=== PATIENT | female | born 1990 | race American Indian/Alaskan Native ===

== ENCOUNTER 2020-03-09 07:21 | Inpatient (IN) | payer MEDICARE ==
[2020-03-09] MEDS ORDERED: ALBUTEROL 2.5 MG/3 ML NEBU IH ONE ×3 (07:37→23:50)
[2020-03-09] MEDS ORDERED: IPRATROPIUM 0.02% NEBU 2.5 ML IH ONE (07:37)
--- NOTE | 2020-03-09 07:58 | Emergency Department Report ---
ED Shortness of Breath HPI - General Chief Complaint: Dyspnea/Respdistress Stated Complaint: CARMELA Time Seen by Provider: 03/09/20 07:37 Source: patient, EMS Mode of arrival: Stretcher Limitations: No Limitations - History of Present Illness Initial Comments: Patient is 29 years old female, morbidly obese with history of hypertension, diabetes and asthma. Patient was recently admitted to the hospital at [facility] for COVID-19 pneumonia approximately 2 weeks ago. Patient spent 5 days in the hospital and discharged home. Patient stated that she was doing well until 2 days ago when she started having difficulty in breathing again. Patient brought to the emergency room by EMS. EMS stated that patient found to have an oxygen saturation of 88% on room air improved to 95% on nonrebreather. Patient denied fever however stated that she is having chills. Patient denied any nausea or vomiting. MD Complaint: shortness of breath, cough -: days(s) (2) Consistency: constant Known History Of: asthma Context: recent URI - Related Data Allergies Allergy/AdvReac Type Severity Reaction Status Date / Time lorazepam [From Ativan] AdvReac Unknown Verified 03/09/20 07:27 naloxone [From Narcan] AdvReac Unknown Verified 03/09/20 07:28 ED Review of Systems ROS: Stated complaint: CARMELA Other details as noted in HPI Comment: All other systems reviewed and negative Constitutional: chills, fever Respiratory: cough, shortness of breath, SOB with exertion, SOB at rest, w heezing Cardiovascular: palpitations. denies: chest pain Gastrointestinal: denies: abdominal pain, nausea, vomiting, diarrhea, constipation, hematemesis, melena, hematochezia Musculoskeletal: denies: back pain Neurological: denies: headache, weakness, numbness, paresthesias, confusion ED Past Medical Hx - Past Medical History Previous Medical History?: Yes Hx Hypertension: Yes Hx Diabetes: Yes Hx Asthma: Yes ED Physical Exam - General Limitations: No Limitations General appearance: alert, in distress - Head Head exam: Present: atraumatic, normocephalic, normal inspection - Eye Eye exam: Present: normal appearance, PERRL - ENT ENT exam: Present: normal exam - Neck Neck exam: Present: normal inspection, full ROM. Absent: tenderness, meningismus - Respiratory Respiratory exam: Present: respiratory distress, wheezes, rales, rhonchi, accessory muscle use, decreased breath sounds - Cardiovascular Cardiovascular Exam: Present: regular rate, normal rhythm, normal heart sounds - GI/Abdominal GI/Abdominal exam: Present: soft, normal bowel sounds. Absent: distended, tenderness, guarding, rebound, rigid, organomegaly, mass, bruit, pulsatile mass, hernia - Extremities Exam Extremities exam: Present: normal inspection, full ROM, normal capillary refill - Back Exam Back exam: Present: normal inspection - Neurological Exam Neurological exam: Present: alert, oriented X3, CN II-XII intact - Psychiatric Psychiatric exam: Present: normal mood, anxious - Skin Skin exam: Present: warm, intact, normal color ED Course Vital Signs 03/09/20 03/09/20 03/09/20 07:31 07:46 08:00 Temperature Pulse Rate 94 H 88 Respiratory 46 H 37 H Rate Blood Pressure 170/102 150/95 170/102 Blood Pressure [Right] O2 Sat by Pulse 96 96 98 Oximetry 03/09/20 03/09/20 03/09/20 08:16 08:43 09:17 Temperature 99 F Pulse Rate 88 79 Respiratory 24 27 H Rate Blood Pressure 142/80 Blood Pressure 154/96 [Right] O2 Sat by Pulse 100 100 Oximetry ED Medical Decision Making - Lab Data Result diagrams: 03/09/20 08:27 03/09/20 08:27 - EKG Data -: EKG Interpreted by [place] EKG shows normal: sinus rhythm Rate: tachycardia - EKG Data Interpretation: no acute changes - Radiology Data Radiology results: report reviewed - Medical Decision Making Patient is 29 years old female, morbidly obese with history of hypertension, diabetes and asthma. Patient was recently admitted to the hospital at [facility] for COVID-19 pneumonia approximately 2 weeks ago. Patient spent 5 days in the hospital and discharged home. Patient stated that she was doing well until 2 days ago when she started having difficulty in breathing again. Patient brought to the emergency room by EMS. EMS stated that patient found to have an oxygen saturation of 88% on room air improved to 95% on nonrebreather. Patient denied fever however stated that she is having chills. Patient denied any nausea or vomiting. Patient is started on high flow oxygen with oxygen saturation is 100%. Patient also received albuterol, Atrovent and Decadron. Labs reviewed and showed a white blood cells of 15.8 with left shift. Lactic acid is 3.7. Sepsis protocol initiated and patient started on normal saline and received Levaquin 750 mg IV since patient has recently hospitalized. I discussed the patient with Dr. Casillas, he advised to admit the patient to Dr. Graf. Critical Care Time: Yes Critical care time in (mins) excluding proc time.: 30 Critical care attestation.: If time is entered above; I have spent that time in minutes in the direct care of this critically ill patient, excluding procedure time. ED Disposition Clinical Impression: Acute respiratory failure due to COVID-19, Sepsis Disposition: DC-09 OP ADMIT IP TO THIS HOSP Is pt being admited?: Yes Condition: Stable Referrals: PRIMARY CARE, [Primary Care Provider] - 3-5 Days
[2020-03-09] MEDS ORDERED: dexAMETHasone 20 MG in SODIUM CHLORIDE 0.9% 50 ML IV ONE (08:00)
--- NOTE | 2020-03-09 08:55 | XRay Report ---
CHEST 1 VIEW INDICATION: Dyspnea. COMPARISON: None FINDINGS: Support devices: None. Heart: Mild to moderate cardiomegaly Lungs/Pleura: Moderate pulmonary venous congestion and right pleural effusion. There is compressive a telectasis at the right lung base. The lungs are generally clear otherwise. No pneumothorax. Additional findings: None. IMPRESSION: CHF. Signer Name: Jimmy Ortega Jr, MD Signed: 03/09/2020 8:51 AM Workstation Name: [id number]
[2020-03-09 09:01] LABS: Basophils % (Auto) 0.3 % (0.0-1.8); Eosinophils # (Auto) 0.1 K/mm3 (0.0-0.4); Eosinophils % (Auto) 0.4 % (0.0-4.3); Lymphocytes # (Auto) 3.3 K/mm3 (1.2-5.4); Lymphocytes % (Auto) 20.7 % (13.4-35.0); Mean Corpuscular HGB Conc 30 % (30-34); Mean Corpuscular Volume 79 fl (79-97); Monocytes # (Auto) 1.3 K/mm3 (0.0-0.8); Monocytes % (Auto) 8.2 % (0.0-7.3); Platelet Count 245 K/mm3 (140-440); Red Blood Count 5.43 M/mm3 (3.65-5.03); Red Cell Distribution Width 19.3 % (13.2-15.2)
[2020-03-09 09:02] LABS: Hematocrit 42.8 % (30.3-42.9); Hemoglobin 12.9 gm/dl (10.1-14.3)
[2020-03-09 09:10] LABS: INR 1.06 (0.87-1.13)
[2020-03-09 09:11] LABS: Partial Thromboplastin Time 25.4 Sec. (24.2-36.6)
[2020-03-09 09:17] LABS: BUN/Creatinine Ratio 29; Blood Urea Nitrogen 29 mg/dL (7-17); Calcium 8.7 mg/dL (8.4-10.2); Hemolysis Index 23
[2020-03-09] MEDS ORDERED: SODIUM CHLORIDE 0.9% 1000 ML 1,000 ML IV ONE (09:43)
--- NOTE | 2020-03-09 10:15 | History and Physical Report ---
History of Present Illness Date of examination: 03/09/20 Date of admission: 03/09/2020 Chief complaint: Worsening shortness of breath, acute hypoxic respiratory failure History of present illness: Morbidly obese 29 years old female patient, with significant past medical history of hypertension, diabetes and asthma. With history of Covid positive state was recently admitted to the hospital at [facility] for COVID-19 pneumonia approximately 2 weeks ago. Patient spent 5 days in the hospital and discharged home. Patient stated that she was doing well until 2 days ago when she started having shortness of breath and worsening effort tolerance. Patient evaluated in the emergency room by EMS. EMS stated that patient found to have an oxygen saturation of 88% on room air improved to 95% on nonrebreather. In the emergency room patient was hypoxic requiring BiPAP. Patient also has been screaming and shouting and is very needy. At the time of my evaluation patient was screaming when I communicated patient wants more food more ice chips and water. Patient denies chest pain or palpitation, Mild cough productive, denies hematemesis or melena Patient's Covid test was sent, Denies nausea vomiting or abdominal pain Denies headache or dizziness, Chest x-ray mild CHF Past History Past Medical History: diabetes, hypertension, hyperlipidemia, other (History of recent Covid infection) Past Surgical History: No surgical history Social history: full code. denies: smoking, alcohol abuse, prescription drug abuse Family history: hypertension Medications and Allergies Allergies Allergy/AdvReac Type Severity Reaction Status Date / Time lorazepam [From Ativan] AdvReac Unknown Verified 03/09/20 07:27 naloxone [From Narcan] AdvReac Unknown Verified 03/09/20 07:28 Active Meds: Active Medications Sodium Chloride (Nacl 0.9% 1000 Ml) 1,000 mls @ 999 mls/hr IV BOLUS ONE Stop: 03/09/20 10:43 Levofloxacin/Dextrose (Levaquin 750mg/150ml) 750 mg in 150 mls @ 100 mls/hr IV ONCE ONE; Protocol Stop: 03/09/20 11:13 Review of Systems Constitutional: fatigue, weakness, no weight loss, no weight gain, no anorexia Ears, nose, mouth and throat: no nasal congestion, no nasal discharge Cardiovascular: orthopnea, shortness of breath, no chest pain, no palpitations, no rapid/irregular heart beat Respiratory: cough, cough with sputum, shortness of breath Gastrointestinal: no abdominal pain, no nausea, no vomiting Genitourinary Female: no flank pain, no dysuria Musculoskeletal: no myalgias, no arthritis Integumentary: no rash, no lesions Neurological: no syncope, no tremors, no ataxia Psychiatric: no anxiety, no confusion Endocrine: no cold intolerance, no heat intolerance, no polyphagia, no excessive thirst Hematologic/Lymphatic: no easy bruising, no easy bleeding Allergic/Immunologic: no urticaria, no allergic rhinitis Exam - Constitutional Vitals: Temp Pulse Resp BP Pulse Ox 99 F 79 27 H 154/96 100 03/09/20 08:43 03/09/20 09:17 03/09/20 09:17 03/09/20 09:17 03/09/20 09:52 General appearance: Present: severe distress, obese, other (Morbidly obese patient is screaming and shouting asking for staff) - EENT Eyes: Present: PERRL, EOM intact - Neck Neck: Present: supple, normal ROM - Respiratory Respiratory effort: normal Respiratory: left: diminished, rales, rhonchi, bilateral: wheezing - Cardiovascular Rhythm: regular Heart Sounds: Present: S1 & S2 - Extremities Extremities: no ischemia Extremity abnormal: edema - Abdominal General gastrointestinal: Present: soft, non-distended, distended - Integumentary Integumentary: Present: clear, warm - Musculoskeletal Musculoskeletal: strength equal bilaterally, generalized weakness - Psychiatric Psychiatric: appropriate mood/affect, cooperative - Neurologic Neurologic: CNII-XII intact, moves all extremities HEART Score - HEART Score Troponin: Troponin T < 0.010 ng/mL (0.00-0.029) 03/09/20 08:27 Results - Labs CBC & Chem 7: 03/09/20 08:27 03/09/20 08:27 Labs: Abnormal lab results 03/09/20 03/09/20 03/09/20 Range/Units 08:27 08:27 08:27 WBC 15.8 H (4.5-11.0) K/mm3 RBC 5.43 H (3.65-5.03) M/mm3 MCH 24 L (28-32) pg RDW 19.3 H (13.2-15.2) % [place] % (Auto) 8.2 H (0.0-7.3) % [place] # (Auto) 1.3 H (0.0-0.8) K/mm3 Seg Neutrophils % 70.4 H (40.0-70.0) % Seg Neutrophils # 11.1 H (1.8-7.7) K/mm3 D-Dimer (0-234) ng/mlDDU Chloride 97.1 L (98-107) mmol/L BUN 29 H (7-17) mg/dL Glucose 178 H (65-100) mg/dL Lactic Acid 3.70 H* (0.7-2.0) mmol/L Lactate Dehydrogenase 369 H (91-180) units/L C-Reactive Protein 3.00 H (0.00-1.30) mg/dL 03/09/20 Range/Units 08:27 WBC (4.5-11.0) K/mm3 RBC (3.65-5.03) M/mm3 MCH (28-32) pg RDW (13.2-15.2) % [place] % (Auto) (0.0-7.3) % [place] # (Auto) (0.0-0.8) K/mm3 Seg Neutrophils % (40.0-70.0) % Seg Neutrophils # (1.8-7.7) K/mm3 D-Dimer 1042.81 H (0-234) ng/mlDDU Chloride (98-107) mmol/L BUN (7-17) mg/dL Glucose (65-100) mg/dL Lactic Acid (0.7-2.0) mmol/L Lactate Dehydrogenase (91-180) units/L C-Reactive Protein (0.00-1.30) mg/dL Assessment and Plan --Acute hypoxic respiratory failure; present on admission Patient has history of recent Covid infection with positive test EMS found her to be hypoxic with O2 sats of 88% Oxygen titrate O2 sats to more than 90% Nebulizers, IV steroids, supportive care --History of recent Covid positive state; Check inflammatory markers, repeat agurire PCR test Contact and droplet isolation Try to get records from the previous hospital --Lactic acidosis; --Leukocytosis; secondary to sepsis, follow cultures To the underlying cause -- Elevate dimers; probably Covid related Evaluate for DVT and PE --Type 2 diabetes mellitus; moderate control Accu-Chek sliding scale coverage ADA diet and insulin as needed Check A1c --History of hypertension; moderate control home --Morbid obesity; BMI 60.6 Possible obstructive sleep apnea CPAP BiPAP at night, supportive care Patient needs x-rays likely modification and weight reduction when medically stable Nutrition consult --DVT prophylaxis; Lovenox We will closely monitor patient and adjust management as needed Plan of care reviewed with the patient and her nurse May need bariatric surgical consultation outpatient For weight reduction program when medically stable
[2020-03-09] MEDS ORDERED: oxyCODONE /ACETAMINOPHEN 5-325MG TAB PO PRN (10:40)
[2020-03-09] MEDS ORDERED: ACETAMINOPHEN 325 MG TAB PO PRN (10:40)
[2020-03-09] MEDS ORDERED: FUROSEMIDE 40 MG/4 ML INJ IV SCH (10:48)
[2020-03-09] MEDS ORDERED: hydrALAZINE 20 MG/1 ML INJ IV PRN (10:49)
[2020-03-09] MEDS ORDERED: SODIUM CHLORIDE 0.9% 1000 ML 1,000 ML ONE (11:59)
[2020-03-09] MEDS: INSULIN LISPRO 100 UNIT/ML VIAL 3 mL SUB-Q SCH ×3 (12:08→23:16)
--- NOTE | 2020-03-09 13:24 | Vascular Lab Report ---
DUPLEX DOPPLER LOWER EXTREMITY VEINS, BILATERAL INDICATION: Elevated D-dimers, evaluate for DVT. TECHNIQUE: Duplex doppler imaging was performed through the veins of both lower extremities using venous rocio mitzi and other maneuvers. COMPARISON: No relevant prior imaging study available. FINDINGS: Right Common femoral vein: Negative. Right Superficial femoral vein: Negative. Right Popliteal vein: Negative. Right Calf veins: Negative. Left Common femoral vein: Negative. Left Superficial femoral vein: Negative. Left Popliteal vein: Negative. Left Calf veins: Negative. Additional findings: None.. IMPRESSION: 1. No sonographic evidence for DVT in either lower extremity. Signer Name: Rick Hollis MD Signed: 03/09/2020 1:20 PM Workstation Name: [id number]
[2020-03-09] MEDS ORDERED: HALOPERIDOL LACTATE 5 MG/1 ML INJ ONE (15:58)
[2020-03-09] MEDS: hydrALAZINE 25 MG TAB PO SCH ×2 (16:07→23:10)
[2020-03-09] MEDS: HALOPERIDOL LACTATE 5 MG/1 ML INJ IM PRN (16:07)
[2020-03-09] MEDS ORDERED: ZIPRASIDONE MESYLATE 20 MG VIAL IM ONE (17:49)
[2020-03-09] MEDS ORDERED: diphenhydrAMINE 50 MG/ML VIAL IV ONE (17:50)
[2020-03-09] MEDS ORDERED: diphenhydrAMINE 50 MG/ML VIAL ONE (17:50)
[2020-03-09] MEDS ORDERED: ZOLPIDEM 5 MG TAB PO PRN (22:00)
[2020-03-09] MEDS ORDERED: ENOXAPARIN 40 MG/0.4 ML INJ SUB-Q SCH (22:00)
[2020-03-09] MEDS ORDERED: ENOXAPARIN 40 MG/0.4 ML INJ SUB-Q ONE (22:48)
[2020-03-09] MEDS ORDERED: METOPROLOL TARTRATE 25 MG TAB ONE (22:48)
[2020-03-09] MEDS ORDERED: hydrALAZINE 25 MG TAB ONE (22:49)
[2020-03-09] MEDS ORDERED: INSULIN LISPRO 100 UNIT/ML SUB-Q ONE (23:00)
[2020-03-09] MEDS: METOPROLOL TARTRATE 25 MG TAB PO SCH (23:10)
[2020-03-09] MEDS ORDERED: INSULIN LISPRO 100 UNIT/ML VIAL 3 mL SUB-Q ONE (23:12)
[2020-03-09] MEDS ORDERED: ZOLPIDEM 5 MG TAB ONE (23:16)
[2020-03-09] MEDS ORDERED: IPRATROPIUM/ALBUTEROL SULFATE 3 ML AMPUL.NEB IH ONE ×2 (23:41→23:50)
[2020-03-10] MEDS: HALOPERIDOL LACTATE 5 MG/1 ML INJ IM PRN ×2 (02:18→12:56)
[2020-03-10] MEDS: hydrALAZINE 25 MG TAB PO SCH ×3 (06:58→22:36)
[2020-03-10] MEDS: PANTOPRAZOLE 40 MG TAB PO SCH (06:58)
[2020-03-10] MEDS: INSULIN LISPRO 100 UNIT/ML VIAL 3 mL SUB-Q SCH ×3 (08:32→17:54)
[2020-03-10] MEDS: METOPROLOL TARTRATE 25 MG TAB PO SCH (09:28)
[2020-03-10] MEDS ORDERED: dexAMETHasone 4 MG/ML VIAL IV SCH (10:00)
--- NOTE | 2020-03-10 10:49 | Progress Note ---
Assessment and Plan - Patient Problems (1) Acute respiratory failure due to COVID-19 Current Visit: Yes Status: Acute Plan to address problem: Supplemental oxygen, pulse oximetry, nebulizer therapy via MDI spacer, ambulate 3 times daily and as needed, pulmonary toilet, prone positioning while in bed, (2) Obesity hypoventilation syndrome Current Visit: Yes Status: Acute Plan to address problem: Pulse oximetry, nebulizer therapy, supplemental oxygen, outpatient pulmonary follow-up for sleep study, balanced diet, increase physical activity at discharge (3) Coronavirus infection Current Visit: Yes Status: Acute Plan to address problem: Coronavirus protocol: Infectious disease service consulted, contact precautions, isolation precaution, steroid therapy, prone listening while in bed. (4) Hypertension Current Visit: Yes Status: Acute Qualifiers: Hypertension type: essential hypertension Qualified Code(s): I10 - Essential (primary) hypertension Plan to address problem: Monitor blood pressure every shift, continue medical management (5) Diabetes Current Visit: Yes Status: Acute Plan to address problem: Consistent carbohydrate diet, sliding scale insulin therapy, Accu-Chek, hypoglycemia protocol (6) CHF (congestive heart failure) Current Visit: Yes Status: Acute Qualifiers: Heart failure type: systolic Heart failure chronicity: acute Qualified Code(s): I50.21 - Acute systolic (congestive) heart failure Plan to address problem: Strict I/O, monitor urine output every shift, daily weight, afterload reduction, blood pressure control, echocardiogram ordered and is pending at this time. BNP, (7) Pneumonia Current Visit: Yes Status: Acute Qualifiers: Laterality: bilateral Plan to address problem: Pneumonia protocol: Supplemental oxygen, IV antibiotic therapy, pulse oximetry, blood culture. (8) DVT prophylaxis Current Visit: Yes Status: Acute Plan to address problem: SCD to bilateral lower extremities while in bed, prophylactic anticoagulation. History Interval history: 29 YO Female HD #2 with acute hypoxemic respiratory failure secondary to c oronavirus infection, obesity hypoventilation syndrome. Patient resting comfortably in bed with high flow supplemental oxygen in place. No reported nursing events. Patient denies pain. Patient knowledges continued shortness of breath. Hospitalist Physical - Constitutional Vitals: Temp Pulse Resp BP Pulse Ox 98.0 F 95 H 20 142/90 100 03/10/20 05:48 03/10/20 09:28 03/10/20 05:48 03/10/20 09:28 03/10/20 05:48 General appearance: Present: severe distress, obese, other (Morbidly obese patient is screaming and shouting asking for staff) - EENT Eyes: Present: PERRL, EOM intact - Neck Neck: Present: supple - Respiratory Respiratory effort: labored Respiratory: bilateral: diminished, rhonchi - Cardiovascular Rhythm: regular Heart Sounds: Present: S1 & S2 - Extremities Extremities: no ischemia Extremity abnormal: edema Peripheral Pulses: within normal limits - Abdominal General gastrointestinal: soft, non-tender, non-distended - Integumentary Integumentary: Present: clear, dry - Psychiatric Psychiatric: appropriate mood/affect, cooperative - Neurologic Neurologic: CNII-XII intact HEART Score - HEART Score Troponin: Troponin T < 0.010 ng/mL (0.00-0.029) 03/09/20 08:27 Results - Labs CBC & Chem 7: 03/09/20 08:27 03/09/20 08:27 Labs: Laboratory Last Values WBC 15.8 K/mm3 (4.5-11.0) H 03/09/20 08:27 RBC 5.43 M/mm3 (3.65-5.03) H 03/09/20 08:27 Hgb 12.9 gm/dl (10.1-14.3) 03/09/20 08:27 Hct 42.8 % (30.3-42.9) 03/09/20 08:27 MCV 79 fl (79-97) 03/09/20 08:27 MCH 24 pg (28-32) L 03/09/20 08: MCHC 30 % (30-34) 03/09/20 08:27 RDW 19.3 % (13.2-15.2) H 03/09/20 08:27 Plt Count 245 K/mm3 (140-440) 03/09/20 08:27 Lymph % (Auto) 20.7 % (13.4-35.0) 03/09/20 08:27 [place] % (Auto) 8.2 % (0.0-7.3) H 03/09/20 08:27 Eos % (Auto) 0.4 % (0.0-4.3) 03/09/20 08:27 Baso % (Auto) 0.3 % (0.0-1.8) 03/09/20 08:27 Lymph # (Auto) 3.3 K/mm3 (1.2-5.4) 03/09/20 08:27 [place] # (Auto) 1.3 K/mm3 (0.0-0.8) H 03/09/20 08:27 Eos # (Auto) 0.1 K/mm3 (0.0-0.4) 03/09/20 08: Baso # (Auto) 0.0 K/mm3 (0.0-0.1) 03/09/20 08:27 Seg Neutrophils % 70.4 % (40.0-70.0) H 03/09/20 08: Seg Neutrophils # 11.1 K/mm3 (1.8-7.7) H 03/09/20 08:27 PT 13.7 Sec. (12.2-14.9) 03/09/20 08: INR 1.06 (0.87-1.13) 03/09/20 08: APTT 25.4 Sec. (24.2-36.6) 03/09/20 08:27 D-Dimer 1042.81 ng/mlDDU (0-234) H 03/09/20 08:27 Sodium 139 mmol/L (137-145) 03/09/20 08:27 Potassium 4.9 mmol/L (3.6-5.0) 03/09/20 08:27 Chloride 97.1 mmol/L (98-107) L 03/09/20 08: Carbon Dioxide 25 mmol/L (22-30) 03/09/20 08:27 Anion Gap 22 mmol/L 03/09/20 08:27 BUN 29 mg/dL (7-17) H 03/09/20 08:27 Creatinine 1.0 mg/dL (0.6-1.2) 03/09/20 08:27 Estimated GFR > 60 ml/min 03/09/20 08:27 BUN/Creatinine Ratio 29 % 03/09/20 08:27 Glucose 178 mg/dL (65-100) H 03/09/20 08:27 POC Glucose 371 mg/dL (70-105) H 03/10/20 08:19 Hemoglobin A1c 8.0 % (4-6) H 03/09/20 08:27 Lactic Acid 6.80 mmol/L (0.7-2.0) H* 03/10/20 05:23 Calcium 8.7 mg/dL (8.4-10.2) 03/09/20 08:27 Ferritin 108.9 ng/mL (10.0-200.0) 03/09/20 08:27 Lactate Dehydrogenase 369 units/L (91-180) H 03/09/20 08:27 Troponin T < 0.010 ng/mL (0.00-0.029) 03/09/20 08:27 C-Reactive Protein 3.00 mg/dL (0.00-1.30) H 03/09/20 08:27 NT-Pro-B Natriuret Pep 2914 pg/mL (0-450) H 03/09/20 08:27 Procalcitonin 0.28 ng/mL (<0.15) 03/09/20 08:27 Coronavirus (PCR) Positive (Negative) A 03/09/20 08:43 Microbiology: Microbiology 03/09/20 10:47 Urine,Clean Catch Urine Culture - Preliminary 03/09/20 08:27 Peripheral/Venous Blood Culture - Preliminary NO GROWTH AFTER 24 HOURS 03/09/20 08:27 Peripheral/Venous Blood Culture - Preliminary NO GROWTH AFTER 24 HOURS V[place]la/IV: Voiding Method Incontinent IV Catheter Type [Right INT / Saline Lock Antecubital] IV Catheter Type [Right Hand] INT / Saline Lock IV Catheter Type [Left Hand] INT / Saline Lock Active Medications - Current Medications Current Medications: Generic Name Dose Route Start Last Admin Trade Name Freq PRN Reason Stop Dose Admin Acetaminophen 650 mg 03/09/20 10:40 Tylenol PO Q4H PRN Pain, Mild (1-3) Bisacodyl 10 mg 03/09/20 10:40 Dulcolax PO QDAY PRN Constipation Dexamethasone 6 mg 03/10/20 10:00 03/10/20 09:28 Decadron IV 6 mg DAILY KIM Administration Enoxaparin Sodium 40 mg 03/09/20 22:00 03/09/20 23:08 Enoxaparin SUB-Q 40 mg QDAY@2200 KIM Administration Protocol Haloperidol Lactate 2 mg 03/09/20 15:39 03/10/20 02:18 Haldol IM 2 mg Q6H PRN Administration Agitation Hydralazine HCl 25 mg 03/09/20 14:00 03/10/20 06:58 Apresoline PO 25 mg Q8HR KIM Administration Hydralazine HCl 10 mg 03/09/20 10:49 Apresoline IV Q4HR PRN Hypertension Insulin Human Lispro 0 unit 03/09/20 11:30 03/10/20 08:32 Humalog SUB-Q 8 unit ACHS KIM Administration Protocol Metoprolol Tartrate 12.5 mg 03/09/20 22:00 03/10/20 09:28 Metoprolol PO 12.5 mg BID KIM Administration Oxycodone/Acetaminophen 1 tab 03/09/20 10:40 Percocet 5/325 PO Q6H PRN Pain, Moderate (4-6) Pantoprazole Sodium 40 mg 03/10/20 07:30 03/10/20 06:58 Protonix PO 40 mg QDAC KIM Administration Zolpidem Tartrate 5 mg 03/09/20 22:00 03/09/20 23:40 Ambien PO 5 mg QHS PRN Administration Sleep
--- NOTE | 2020-03-10 11:41 | Progress Note ---
Assessment and Plan Cultures: Blood culture 03/09/2020 pending Urine culture 03/09/2020 pending A/P: 29-year-old female past medical history morbid obesity, obesity hypoventilation syndrome, diabetes admitted with shortness of breath #COVID-19 pneumonia: Diagnosed over 2 weeks ago, as such not a candidate for remdesivir. Given that her ferritin is normal, less likely to be in cytokine storm. Procalcitonin slightly elevated at 0.3 #Acute hypoxemic respiratory failure: Likely secondary to COVID-19 infection versus CHF versus bacterial pneumonia. Currently on 15 L nonrebreather #Diabetes: tight glycemic control for best outcomes. #Morbid obesity: Associated with worse outcomes, recommend diet modifications Recs: -Order TTE for evaluation of CHF -Started cefepime 2 g every 8 hours given elevated white count, lactic acid and procalcitonin -Follow white count. Dr. Underwood taking over tomorrow. Thank you for the consult, we will continue to follow. Freida Koch MD [facility] O: [phone] F: [phone] Subjective Date of service: 03/10/20 Interval history: 29-year-old female past medical history of morbid obesity, obesity hypoven tilation, diabetes, asthma. She was admitted to the hospital at [facility] approximately 2 weeks ago for COVID-19 at that time. During that admission she spent 5 days in hospital and was discharged home. She was feeling fine at home, until 2 days prior to admission when she began having worsening shortness of breath. She was found to be hypoxic by EMS which improved with a nonrebreather. She otherwise denies any symptoms. Afebrile with a white count of 16. She is currently on dexamethasone. Covid testing positive. Blood and urine cultures currently pending. She is on 15 L nonrebreather. Imaging personally viewed: Bilateral Doppler ultrasound: No DVT Chest x-ray most consistent with CHF. Review of Systems: Bold if positive, otherwise negative General: fevers, chills, rigors HEENT: visual disturbance, diplopia, eye pain Respiratory: cough, sputum, hemoptysis, shortness of breath Cardiovascular: chest pain, syncope Gastrointestinal: nausea, vomiting, diarrhea, abdominal pain Genitourinary: dysuria, hematuria, flank pain Musculoskeletal: neck pain, back pain, joint pain, edema Neurologic: headaches, seizures Hematologic: easy bruising or bleeding Endocrine: night sweats, acute weight loss Skin: rash, jaundice, redness Psychiatric: suicidal, homicidal ideation Objective - Exam Narrative Exam: Physical exam deferred due to PPE conservation strategy. Please refer to primary team's note. - Constitutional Vitals: Vital Signs Temp Pulse Resp BP Pulse Ox 98.0 F 95 H 20 142/90 100 03/10/20 05:48 03/10/20 09:28 03/10/20 05:48 03/10/20 09:28 03/10/20 05:48 Temperature -Last 24 Hours Temperature 98.0 F Temperature 98.8 F Temperature 99.8 F - Labs CBC & Chem 7: 03/09/20 08:27 03/09/20 08:27 Labs: Abnormal lab results 03/09/20 03/09/20 03/10/20 Range/Units 08:43 23:04 05:23 POC Glucose 361 H (70-105) mg/dL Lactic Acid 6.80 H* (0.7-2.0) mmol/L Coronavirus (PCR) Positive A (Negative) 03/10/20 03/10/20 Range/Units 08:19 10:49 POC Glucose 371 H 423 H (70-105) mg/dL Lactic Acid (0.7-2.0) mmol/L Coronavirus (PCR) (Negative)
[2020-03-10] MEDS: CEFEPIME/NS 2 GM/100 ML 2 GM/100 ML BAG IV SCH ×2 (14:21→23:47)
[2020-03-10] MEDS ORDERED: LORazepam 1 MG TAB PO ONE (16:05)
[2020-03-10 16:52] LABS: HCG Qualitative,Urine Negative (Negative)
[2020-03-10] MEDS ORDERED: LORazepam 2 MG/ML VIAL IV ONE (18:27)
[2020-03-10] MEDS ORDERED: ZIPRASIDONE MESYLATE 20 MG VIAL IM ONE (20:11)
[2020-03-10] MEDS ORDERED: NON-FORMULARY EACH (Risperidone [Risperdal] 0.5 MG) PO SCH (22:00)
[2020-03-10] MEDS: hydrOXYzine HCL 10 MG TAB PO SCH (22:34)
[2020-03-10] MEDS: carvediloL 6.25 MG TAB PO SCH (22:34)
[2020-03-10] MEDS: HEPARIN 5,000 UNIT/1 ML VIAL SUB-Q SCH (22:34)
[2020-03-10] MEDS: risperiDONE 0.25 MG TAB PO SCH (22:35)
[2020-03-10] MEDS: DIVALPROEX ER 500 MG TAB PO SCH (22:35)
[2020-03-10] MEDS: CITALOPRAM 20 MG TAB PO SCH (22:36)
[2020-03-11] MEDS: INSULIN LISPRO 100 UNIT/ML VIAL 3 mL SUB-Q SCH ×5 (00:36→17:01)
[2020-03-11] MEDS ORDERED: WATER FOR INJ Sterile (PF) 10 ML ONE (01:55)
[2020-03-11] MEDS: hydrALAZINE 25 MG TAB PO SCH ×2 (06:45→13:50)
[2020-03-11] MEDS: CEFEPIME/NS 2 GM/100 ML 2 GM/100 ML BAG IV SCH ×2 (09:49→13:50)
[2020-03-11] MEDS ORDERED: NON-FORMULARY EACH (Losartan [Cozaar] 100 MG) PO SCH (10:00)
[2020-03-11] MEDS ORDERED: NON-FORMULARY EACH (Nifedipine [Nifedipine Er] 60 MG) PO SCH (10:00)
[2020-03-11] MEDS: risperiDONE 0.25 MG TAB PO SCH (11:08)
[2020-03-11] MEDS: HEPARIN 5,000 UNIT/1 ML VIAL SUB-Q SCH (11:09)
[2020-03-11] MEDS: carvediloL 6.25 MG TAB PO SCH (11:09)
[2020-03-11] MEDS: PANTOPRAZOLE 40 MG TAB PO SCH (11:09)
[2020-03-11] MEDS: DEXAMETHASONE 4 MG TAB PO SCH (11:09)
[2020-03-11] MEDS: LOSARTAN 50 MG TAB PO SCH (11:09)
[2020-03-11] MEDS: NIFEdipine XL 60 MG TAB PO SCH (11:11)
[2020-03-11] MEDS: HALOPERIDOL LACTATE 5 MG/1 ML INJ IM PRN (14:08)
[2020-03-11] MEDS ORDERED: diphenhydrAMINE 50 MG CAP PO PRN (16:32)
[2020-03-11] MEDS: ZIPRASIDONE MESYLATE 20 MG VIAL IM PRN (18:40)
--- NOTE | 2020-03-11 20:59 | Progress Note ---
Assessment and Plan - Patient Problems (1) Acute respiratory failure due to COVID-19 Current Visit: Yes Status: Acute Plan to address problem: Supplemental oxygen, pulse oximetry, nebulizer therapy via MDI spacer, ambulate 3 times daily and as needed, pulmonary toilet, prone positioning while in bed, (2) Obesity hypoventilation syndrome Current Visit: Yes Status: Acute Plan to address problem: Pulse oximetry, nebulizer therapy, supplemental oxygen, outpatient pulmonary follow-up for sleep study, balanced diet, increase physical activity at discharge (3) Coronavirus infection Current Visit: Yes Status: Acute Plan to address problem: Coronavirus protocol: Infectious disease service consulted, contact precautions, isolation precaution, steroid therapy, prone listening while in bed. (4) Hypertension Current Visit: Yes Status: Acute Qualifiers: Hypertension type: essential hypertension Qualified Code(s): I10 - Essential (primary) hypertension Plan to address problem: Monitor blood pressure every shift, continue medical management (5) Diabetes Current Visit: Yes Status: Acute Plan to address problem: Consistent carbohydrate diet, sliding scale insulin therapy, Accu-Chek, hypoglycemia protocol (6) CHF (congestive heart failure) Current Visit: Yes Status: Acute Qualifiers: Heart failure type: systolic Heart failure chronicity: acute Qualified Code(s): I50.21 - Acute systolic (congestive) heart failure Plan to address problem: Strict I/O, monitor urine output every shift, daily weight, afterload reduction, blood pressure control, echocardiogram ordered and is pending at this time. BNP, (7) Pneumonia Current Visit: Yes Status: Acute Qualifiers: Laterality: bilateral Plan to address problem: Pneumonia protocol: Supplemental oxygen, IV antibiotic therapy, pulse oximetry, blood culture. (8) DVT prophylaxis Current Visit: Yes Status: Acute Plan to address problem: SCD to bilateral lower extremities while in bed, prophylactic anticoagulation. History Interval history: 29 YO Female HD #3 with acute hypoxemic respiratory failure secondary to c oronavirus infection, obesity hypoventilation syndrome. Patient resting comfortably in bed with high flow supplemental oxygen in place. Patient denies pain. Patient knowledges continued shortness of breath. Nursing staff report agitation. Hospitalist Physical - Constitutional Vitals: Temp Pulse Resp BP Pulse Ox 97.7 F 91 H 17 132/81 99 03/11/20 15:27 03/11/20 15:27 03/11/20 15:27 03/11/20 15:27 03/11/20 15:27 General appearance: Present: severe distress, obese, other (Morbidly obese patient is screaming and shouting asking for staff) - EENT Eyes: Present: PERRL, EOM intact ENT: hearing intact - Neck Neck: Present: supple - Respiratory Respiratory effort: labored Respiratory: bilateral: diminished, rhonchi - Cardiovascular Rhythm: regular Heart Sounds: Present: S1 & S2 - Extremities Extremities: no ischemia Peripheral Pulses: within normal limits - Abdominal General gastrointestinal: soft, non-tender, non-distended - Integumentary Integumentary: Present: clear, erythema - Psychiatric Psychiatric: agitated - Neurologic Neurologic: CNII-XII intact HEART Score - HEART Score Troponin: Troponin T < 0.010 ng/mL (0.00-0.029) 03/09/20 08:27 Results - Labs CBC & Chem 7: 03/09/20 08:27 03/09/20 08:27 Labs: Laboratory Last Values WBC 15.8 K/mm3 (4.5-11.0) H 03/09/20 08:27 RBC 5.43 M/mm3 (3.65-5.03) H 03/09/20 08:27 Hgb 12.9 gm/dl (10.1-14.3) 03/09/20 08: Hct 42.8 % (30.3-42.9) 03/09/20 08:27 MCV 79 fl (79-97) 03/09/20 08: MCH 24 pg (28-32) L 03/09/20 08: MCHC 30 % (30-34) 03/09/20 08: RDW 19.3 % (13.2-15.2) H 03/09/20 08:27 Plt Count 245 K/mm3 (140-440) 03/09/20 08: Lymph % (Auto) 20.7 % (13.4-35.0) 03/09/20 08: [place] % (Auto) 8.2 % (0.0-7.3) H 03/09/20 08:27 Eos % (Auto) 0.4 % (0.0-4.3) 03/09/20 08: Baso % (Auto) 0.3 % (0.0-1.8) 03/09/20 08:27 Lymph # (Auto) 3.3 K/mm3 (1.2-5.4) 03/09/20 08:27 [place] # (Auto) 1.3 K/mm3 (0.0-0.8) H 03/09/20 08:27 Eos # (Auto) 0.1 K/mm3 (0.0-0.4) 03/09/20 08:27 Baso # (Auto) 0.0 K/mm3 (0.0-0.1) 03/09/20 08:27 Seg Neutrophils % 70.4 % (40.0-70.0) H 03/09/20 08:27 Seg Neutrophils # 11.1 K/mm3 (1.8-7.7) H 03/09/20 08:27 PT 13.7 Sec. (12.2-14.9) 03/09/20 08:27 INR 1.06 (0.87-1.13) 03/09/20 08: APTT 25.4 Sec. (24.2-36.6) 03/09/20 08:27 D-Dimer 1042.81 ng/mlDDU (0-234) H 03/09/20 08:27 Sodium 139 mmol/L (137-145) 03/09/20 08:27 Potassium 4.9 mmol/L (3.6-5.0) 03/09/20 08:27 Chloride 97.1 mmol/L (98-107) L 03/09/20 08: Carbon Dioxide 25 mmol/L (22-30) 03/09/20 08:27 Anion Gap 22 mmol/L 03/09/20 08:27 BUN 29 mg/dL (7-17) H 03/09/20 08:27 Creatinine 1.0 mg/dL (0.6-1.2) 03/09/20 08:27 Estimated GFR > 60 ml/min 03/09/20 08:27 BUN/Creatinine Ratio 29 % 03/09/20 08:27 Glucose 178 mg/dL (65-100) H 03/09/20 08:27 POC Glucose 386 mg/dL (70-105) H 03/11/20 15:24 Hemoglobin A1c 8.0 % (4-6) H 03/09/20 08:27 Lactic Acid 6.80 mmol/L (0.7-2.0) H* 03/10/20 05:23 Calcium 8.7 mg/dL (8.4-10.2) 03/09/20 08:27 Ferritin 108.9 ng/mL (10.0-200.0) 03/09/20 08:27 Lactate Dehydrogenase 369 units/L (91-180) H 03/09/20 08:27 Troponin T < 0.010 ng/mL (0.00-0.029) 03/09/20 08:27 C-Reactive Protein 3.00 mg/dL (0.00-1.30) H 03/09/20 08:27 NT-Pro-B Natriuret Pep 2914 pg/mL (0-450) H 03/09/20 08:27 Procalcitonin 0.28 ng/mL (<0.15) 03/09/20 08:27 Urine HCG, Qual Negative (Negative) 03/10/20 Unknown Coronavirus (PCR) Positive (Negative) A 03/09/20 08:43 Microbiology: Microbiology 03/09/20 08:27 Peripheral/Venous Blood Culture - Preliminary NO GROWTH AFTER 48 HOURS 03/09/20 08:27 Peripheral/Venous Blood Culture - Preliminary NO GROWTH AFTER 48 HOURS - Diagnostic Impressions Diagnostic Impressions: Echocardiogram 03/10/20 11:41 Transthoracic Echocardiogram Indication: New CHF BP: 129/80 HR: 81 Conclusions *The right heart chambers are both moderate-severely dilated. There is at least moderate tricuspid regurgitation. There is moderately-severe pulmonary hypertension with PA systolic pressures of 64mmHg. Findings suggest chronic lung disease, but acute PE should be considered. *Left ventricular chamber size and systolic function are normal. *The estimated ejection fraction is 55-60%. *There is trace of mitral regurgitation. Findings Left Ventricle: The left ventricular chamber size is normal. There is no left ventricular hypertrophy. Global left ventricular systolic function is normal. The estimated ejection fraction is 55-60%. Left Atrium: The left atrial chamber size is normal. Right Ventricle: The right ventricle is moderately dilated. The right ventricular global systolic function is moderately reduced. Right Atrium: The right atrium is moderate to severely dilated. Aortic Valve: The aortic valve is trileaflet. The aortic valve leaflets are mildly thickened. There is no evidence of aortic regurgitation. There is no evidence of aortic stenosis. Mitral Valve: The mitral valve leaflets are mildly thickened. There is trace of mitral regurgitation. There is no evidence of mitral stenosis. Tricuspid Valve: The tricuspid valve leaflets are normal. There is moderate tricuspid regurgitation. The right ventricular systolic pressure is calculated at 64 mmHg. There is evidence of severe pulmonary hypertension. Pulmonic Valve: There is mild pulmonic regurgitation. Aorta: There is no dilatation of the ascending aorta. There is no dilatation of the aortic root. Venous: The inferior vena cava appears normal in size. Measurements Chambers 2D Name Value Normal Range IVSd (2D) 0.8 cm (0.6 - 1.1) LVPWd (2D) 0.87 cm (0.6 - 1.1) LVIDd (2D) 4.69 cm (3.7 - 5.6) LVIDs (2D) 3.64 cm (2 - 3.8) LV FS (2D) 22.38 % - EF Teichholz (2D) 45.1 % - Ao root diameter (2D) 2.17 cm (2 - 3.7) Volumes/Mass Name Value Normal Range LA ESV SP 4CH (A/L) 42.29 ml - LA ESV SP 2CH (A/L) 63.31 ml - LA ESV BP (A/L) 55.21 ml - LA ESV BP (A/L) index 23.49 ml/m2 - LA ESV SP 4CH (MOD) 39.24 ml - LA ESV SP 2CH (MOD) 62.57 ml - LA ESV BP (MOD) 52.02 ml - LA ESV BP (MOD) index 22.14 ml/m2 - Diastolic/Systolic Function Name Value Normal Range MV E-wave Vmax 1.13 m/sec - MV deceleration time 207.11 msec - MV A-wave Vmax 0.86 m/sec - MV E:A ratio 1.31 ratio - Aortic Valve Name Value Normal Range AV Vmax 1.91 m/sec - AV VTI 32.53 cm - AV peak gradient 14.61 mmHg - AV mean gradient 7.83 mmHg - LVOT diameter 1.78 cm - LVOT Vmax 1.67 m/sec - LVOT VTI 28.3 cm - LVOT peak gradient 11.17 mmHg - LVOT mean gradient 5.51 mmHg - SV LVOT 70.01 ml - JANUSZ (continuity Vmax) 2.16 cm2 - JANUSZ (continuity VTI) 2.15 cm2 - Tricuspid Valve Name Value Normal Range TR Vmax 3.59 m/sec - TR peak gradient 51.44 mmHg - RAP 8 mmHg - RVSP 64 mmHg - IVC diameter 2.38 cm (1.2 - 2.3) Varela/IV: Voiding Method Bedside Commode IV Catheter Type [Right INT / Saline Lock Forearm] IV Catheter Type [Right INT / Saline Lock Antecubital] IV Catheter Type [Right Hand] INT / Saline Lock IV Catheter Type [Left Hand] INT / Saline Lock Active Medications - Current Medications Current Medications: Generic Name Dose Route Start Last Admin Trade Name Freq PRN Reason Stop Dose Admin Acetaminophen 650 mg 03/09/20 10:40 Tylenol PO Q4H PRN Pain, Mild (1-3) Bisacodyl 10 mg 03/09/20 10:40 Dulcolax PO QDAY PRN Constipation Carvedilol 6.25 mg 03/10/20 22:00 03/11/20 11:09 Coreg PO 6.25 mg BID KIM Administration Citalopram Hydrobromide 20 mg 03/10/20 22:00 03/10/20 22:36 Celexa PO 20 mg QHS KIM Administration Dexamethasone 6 mg 03/11/20 10:00 03/11/20 11:09 Decadron PO 03/18/20 10:01 6 mg DAILY KIM Administration Diphenhydramine HCl 50 mg 03/11/20 16:32 Benadryl PO Q6H PRN Itching Divalproex Sodium 1,000 mg 03/10/20 22:00 03/10/20 22:35 Depakote Er PO 1,000 mg QHS KIM Administration Haloperidol Lactate 2 mg 03/09/20 15:39 03/11/20 14:08 Haldol IM 2 mg Q6H PRN Administration Agitation Heparin Sodium (Porcine) 5,000 unit 03/10/20 22:00 03/11/20 11:09 Heparin SUB-Q 5,000 unit Q12HR KIM Administration Hydralazine HCl 25 mg 03/09/20 14:00 03/11/20 13:50 Apresoline PO 25 mg Q8HR KIM Administration Hydralazine HCl 10 mg 03/09/20 10:49 Apresoline IV Q4HR PRN Hypertension Hydroxyzine HCl 10 mg 03/10/20 22:00 03/10/20 22:34 Atarax PO 10 mg QHS KIM Administration Cefepime HCl 2 gm in 100 mls @ 200 mls/hr 03/10/20 14:00 03/11/20 13:50 Cefepime/Ns 2 Gm/100 Ml IV Not Given Q8H KIM Protocol Insulin Human Lispro 0 unit 03/09/20 11:30 03/11/20 17:01 Humalog SUB-Q 4 unit ACHS KIM Administration Protocol Losartan Potassium 100 mg 03/11/20 10:00 03/11/20 11:09 Cozaar PO 100 mg QDAY KIM Administration Nifedipine 60 mg 03/11/20 10:00 03/11/20 11:11 Procardia Xl PO 60 mg QDAY KIM Administration Oxycodone/Acetaminophen 1 tab 03/09/20 10:40 Percocet 5/325 PO Q6H PRN Pain, Moderate (4-6) Pantoprazole Sodium 40 mg 03/10/20 07:30 03/11/20 11:09 Protonix PO 40 mg QDAC KIM Administration Risperidone 0.5 mg 03/10/20 22:00 03/11/20 11:08 Risperdal PO 0.5 mg BID KIM Administration Ziprasidone 20 mg 03/11/20 16:28 03/11/20 18:40 Geodon IM 20 mg Q4H PRN Administration Agitation Zolpidem Tartrate 5 mg 03/09/20 22:00 03/09/20 23:40 Ambien PO 5 mg QHS PRN Administration Sleep
[2020-03-12] MEDS: INSULIN LISPRO 100 UNIT/ML VIAL 3 mL SUB-Q SCH ×5 (00:08→22:51)
[2020-03-12] MEDS: hydrOXYzine HCL 10 MG TAB PO SCH ×2 (00:09→22:52)
[2020-03-12] MEDS: CITALOPRAM 20 MG TAB PO SCH ×2 (00:09→22:52)
[2020-03-12] MEDS: INSULIN GLARGINE 100 UNITS/ML SUB-Q SCH ×2 (00:09→22:54)
[2020-03-12] MEDS: carvediloL 6.25 MG TAB PO SCH ×3 (00:09→22:52)
[2020-03-12] MEDS: risperiDONE 0.25 MG TAB PO SCH ×3 (00:10→22:54)
[2020-03-12] MEDS: hydrALAZINE 25 MG TAB PO SCH ×4 (00:10→22:54)
[2020-03-12] MEDS: DIVALPROEX ER 500 MG TAB PO SCH ×2 (00:11→22:52)
[2020-03-12] MEDS: HEPARIN 5,000 UNIT/1 ML VIAL SUB-Q SCH ×3 (00:11→23:15)
[2020-03-12] MEDS: CEFEPIME/NS 2 GM/100 ML 2 GM/100 ML BAG IV SCH ×4 (00:19→23:18)
[2020-03-12] MEDS: HALOPERIDOL LACTATE 5 MG/1 ML INJ IM PRN ×3 (01:00→22:55)
[2020-03-12] MEDS: PANTOPRAZOLE 40 MG TAB PO SCH (08:00)
[2020-03-12] MEDS: ZIPRASIDONE MESYLATE 20 MG VIAL IM PRN (10:40)
[2020-03-12] MEDS: DEXAMETHASONE 4 MG TAB PO SCH (10:41)
[2020-03-12] MEDS: LOSARTAN 50 MG TAB PO SCH (10:49)
[2020-03-12] MEDS: NIFEdipine XL 60 MG TAB PO SCH (10:49)
--- NOTE | 2020-03-12 17:42 | Progress Note ---
Assessment and Plan - Patient Problems (1) Acute respiratory failure due to COVID-19 Current Visit: Yes Status: Acute Plan to address problem: Supplemental oxygen, pulse oximetry, nebulizer therapy via MDI spacer, ambulate 3 times daily and as needed, pulmonary toilet, prone positioning while in bed. Patient high flow submental oxygen has been weaned off and patient placed on supplemental oxygen via nasal cannula. We will continue to wean as tolerated. Discharge planning when patient is able to maintain pulse oximetry on 4 L/min or less. (2) Obesity hypoventilation syndrome Current Visit: Yes Status: Acute Plan to address problem: Pulse oximetry, nebulizer therapy, supplemental oxygen, outpatient pulmonary follow-up for sleep study, balanced diet, increase physical activity at discharge (3) Coronavirus infection Current Visit: Yes Status: Acute Plan to address problem: Coronavirus protocol: Infectious disease service consulted, contact precautions, isolation precaution, steroid therapy, prone listening while in bed. (4) Hypertension Current Visit: Yes Status: Acute Qualifiers: Hypertension type: essential hypertension Qualified Code(s): I10 - Essential (primary) hypertension Plan to address problem: Monitor blood pressure every shift, continue medical management (5) Diabetes Current Visit: Yes Status: Acute Plan to address problem: Consistent carbohydrate diet, sliding scale insulin therapy, Accu-Chek, hypoglycemia protocol (6) Pneumonia Current Visit: Yes Status: Acute Qualifiers: Laterality: bilateral Plan to address problem: Pneumonia protocol: Supplemental oxygen, IV antibiotic therapy, pulse oximetry, blood culture. (7) Pulmonary hypertension Current Visit: Yes Status: Acute Plan to address problem: Supportive care, outpatient pulmonology follow-up for sleep study. And restratification for vasodilator therapy. (8) DVT prophylaxis Current Visit: Yes Status: Acute Plan to address problem: SCD to bilateral lower extremities while in bed, prophylactic anticoagulation. History Interval history: 29 YO Female HD #4 with acute hypoxemic respiratory failure secondary to coronavirus infection, obesity hypoventilation syndrome. Patient resting comfortably in bed. high flow supplemental oxygen was removed today and the patient placed on supplemental oxygen via nasal cannula. Patient denies pain. Patient acknowledges continued shortness of breath. Nursing staff report agitation. Hospitalist Physical - Constitutional Vitals: Temp Pulse Resp BP Pulse Ox 98.0 F 101 H 20 147/95 88 03/12/20 17:08 03/12/20 17:08 03/12/20 17:08 03/12/20 17:08 03/12/20 17:08 General appearance: Present: severe distress, obese, other (Morbidly obese patient is screaming and shouting asking for staff) - EENT Eyes: Present: PERRL, EOM intact ENT: hearing intact - Neck Neck: Present: supple - Respiratory Respiratory: bilateral: diminished, rhonchi - Cardiovascular Rhythm: regular Heart Sounds: Present: S1 & S2 - Extremities Extremities: no ischemia Peripheral Pulses: within normal limits - Abdominal General gastrointestinal: soft, non-tender, non-distended - Integumentary Integumentary: Present: clear, dry - Psychiatric Psychiatric: appropriate mood/affect, cooperative - Neurologic Neurologic: CNII-XII intact HEART Score - HEART Score Troponin: Troponin T < 0.010 ng/mL (0.00-0.029) 03/09/20 08:27 Results - Labs CBC & Chem 7: 03/09/20 08:27 03/09/20 08:27 Labs: Laboratory Last Values WBC 15.8 K/mm3 (4.5-11.0) H 03/09/20 08:27 RBC 5.43 M/mm3 (3.65-5.03) H 03/09/20 08:27 Hgb 12.9 gm/dl (10.1-14.3) 03/09/20 08:27 Hct 42.8 % (30.3-42.9) 03/09/20 08:27 MCV 79 fl (79-97) 03/09/20 08: MCH 24 pg (28-32) L 03/09/20 08: MCHC 30 % (30-34) 03/09/20 08:27 RDW 19.3 % (13.2-15.2) H 03/09/20 08:27 Plt Count 245 K/mm3 (140-440) 03/09/20 08:27 Lymph % (Auto) 20.7 % (13.4-35.0) 03/09/20 08:27 [place] % (Auto) 8.2 % (0.0-7.3) H 03/09/20 08:27 Eos % (Auto) 0.4 % (0.0-4.3) 03/09/20 08: Baso % (Auto) 0.3 % (0.0-1.8) 03/09/20 08:27 Lymph # (Auto) 3.3 K/mm3 (1.2-5.4) 03/09/20 08:27 [place] # (Auto) 1.3 K/mm3 (0.0-0.8) H 03/09/20 08:27 Eos # (Auto) 0.1 K/mm3 (0.0-0.4) 03/09/20 08: Baso # (Auto) 0.0 K/mm3 (0.0-0.1) 03/09/20 08:27 Seg Neutrophils % 70.4 % (40.0-70.0) H 03/09/20 08: Seg Neutrophils # 11.1 K/mm3 (1.8-7.7) H 03/09/20 08:27 PT 13.7 Sec. (12.2-14.9) 03/09/20 08: INR 1.06 (0.87-1.13) 03/09/20 08:27 APTT 25.4 Sec. (24.2-36.6) 03/09/20 08:27 D-Dimer 1042.81 ng/mlDDU (0-234) H 03/09/20 08:27 Sodium 139 mmol/L (137-145) 03/09/20 08:27 Potassium 4.9 mmol/L (3.6-5.0) 03/09/20 08:27 Chloride 97.1 mmol/L (98-107) L 03/09/20 08: Carbon Dioxide 25 mmol/L (22-30) 03/09/20 08:27 Anion Gap 22 mmol/L 03/09/20 08:27 BUN 29 mg/dL (7-17) H 03/09/20 08:27 Creatinine 1.0 mg/dL (0.6-1.2) 03/09/20 08:27 Estimated GFR > 60 ml/min 03/09/20 08: BUN/Creatinine Ratio 29 % 03/09/20 08:27 Glucose 178 mg/dL (65-100) H 03/09/20 08:27 POC Glucose 358 mg/dL (70-105) H 03/12/20 16:53 Hemoglobin A1c 8.0 % (4-6) H 03/09/20 08:27 Lactic Acid 6.80 mmol/L (0.7-2.0) H* 03/10/20 05:23 Calcium 8.7 mg/dL (8.4-10.2) 03/09/20 08:27 Ferritin 108.9 ng/mL (10.0-200.0) 03/09/20 08:27 Lactate Dehydrogenase 369 units/L (91-180) H 03/09/20 08:27 Troponin T < 0.010 ng/mL (0.00-0.029) 03/09/20 08:27 C-Reactive Protein 3.00 mg/dL (0.00-1.30) H 03/09/20 08:27 NT-Pro-B Natriuret Pep 2914 pg/mL (0-450) H 03/09/20 08:27 Procalcitonin 0.28 ng/mL (<0.15) 03/09/20 08:27 Urine HCG, Qual Negative (Negative) 03/10/20 Unknown Coronavirus (PCR) Positive (Negative) A 03/09/20 08:43 Microbiology: Microbiology 03/09/20 10:47 Urine,Clean Catch Urine Culture - Final 03/09/20 08:27 Peripheral/Venous Blood Culture - Preliminary NO GROWTH AFTER 72 HOURS 03/09/20 08:27 Peripheral/Venous Blood Culture - Preliminary NO GROWTH AFTER 72 HOURS - Diagnostic Impressions Diagnostic Impressions: Echocardiogram 03/10/20 11:41 Transthoracic Echocardiogram Indication: New CHF BP: 129/80 HR: 81 Conclusions *The right heart chambers are both moderate-severely dilated. There is at least moderate tricuspid regurgitation. There is moderately-severe pulmonary hypertension with PA systolic pressures of 64mmHg. Findings suggest chronic lung disease, but acute PE should be considered. *Left ventricular chamber size and systolic function are normal. *The estimated ejection fraction is 55-60%. *There is trace of mitral regurgitation. Findings Left Ventricle: The left ventricular chamber size is normal. There is no left ventricular hypertrophy. Global left ventricular systolic function is normal. The estimated ejection fraction is 55-60%. Left Atrium: The left atrial chamber size is normal. Right Ventricle: The right ventricle is moderately dilated. The right ventricular global systolic function is moderately reduced. Right Atrium: The right atrium is moderate to severely dilated. Aortic Valve: The aortic valve is trileaflet. The aortic valve leaflets are mildly thickened. There is no evidence of aortic regurgitation. There is no evidence of aortic stenosis. Mitral Valve: The mitral valve leaflets are mildly thickened. There is trace of mitral regurgitation. There is no evidence of mitral stenosis. Tricuspid Valve: The tricuspid valve leaflets are normal. There is moderate tricuspid regurgitation. The right ventricular systolic pressure is calculated at 64 mmHg. There is evidence of severe pulmonary hypertension. Pulmonic Valve: There is mild pulmonic regurgitation. Aorta: There is no dilatation of the ascending aorta. There is no dilatation of the aortic root. Venous: The inferior vena cava appears normal in size. Measurements Chambers 2D Name Value Normal Range IVSd (2D) 0.8 cm (0.6 - 1.1) LVPWd (2D) 0.87 cm (0.6 - 1.1) LVIDd (2D) 4.69 cm (3.7 - 5.6) LVIDs (2D) 3.64 cm (2 - 3.8) LV FS (2D) 22.38 % - EF Teichholz (2D) 45.1 % - Ao root diameter (2D) 2.17 cm (2 - 3.7) Volumes/Mass Name Value Normal Range LA ESV SP 4CH (A/L) 42.29 ml - LA ESV SP 2CH (A/L) 63.31 ml - LA ESV BP (A/L) 55.21 ml - LA ESV BP (A/L) index 23.49 ml/m2 - LA ESV SP 4CH (MOD) 39.24 ml - LA ESV SP 2CH (MOD) 62.57 ml - LA ESV BP (MOD) 52.02 ml - LA ESV BP (MOD) index 22.14 ml/m2 - Diastolic/Systolic Function Name Value Normal Range MV E-wave Vmax 1.13 m/sec - MV deceleration time 207.11 msec - MV A-wave Vmax 0.86 m/sec - MV E:A ratio 1.31 ratio - Aortic Valve Name Value Normal Range AV Vmax 1.91 m/sec - AV VTI 32.53 cm - AV peak gradient 14.61 mmHg - AV mean gradient 7.83 mmHg - LVOT diameter 1.78 cm - LVOT Vmax 1.67 m/sec - LVOT VTI 28.3 cm - LVOT peak gradient 11.17 mmHg - LVOT mean gradient 5.51 mmHg - SV LVOT 70.01 ml - JANUSZ (continuity Vmax) 2.16 cm2 - JANUSZ (continuity VTI) 2.15 cm2 - Tricuspid Valve Name Value Normal Range TR Vmax 3.59 m/sec - TR peak gradient 51.44 mmHg - RAP 8 mmHg - RVSP 64 mmHg - IVC diameter 2.38 cm (1.2 - 2.3) Varela/IV: Voiding Method Bedside Commode IV Catheter Type [Right INT / Saline Lock Forearm] IV Catheter Type [Right INT / Saline Lock Antecubital] IV Catheter Type [Right Hand] INT / Saline Lock IV Catheter Type [Left Hand] INT / Saline Lock Active Medications - Current Medications Current Medications: Generic Name Dose Route Start Last Admin Trade Name Freq PRN Reason Stop Dose Admin Acetaminophen 650 mg 03/09/20 10:40 Tylenol PO Q4H PRN Pain, Mild (1-3) Bisacodyl 10 mg 03/09/20 10:40 Dulcolax PO QDAY PRN Constipation Carvedilol 6.25 mg 03/10/20 22:00 03/12/20 10:50 Coreg PO 6.25 mg BID KIM Administration Citalopram Hydrobromide 20 mg 03/10/20 22:00 03/12/20 00:09 Celexa PO 20 mg QHS KIM Administration Dexamethasone 6 mg 03/11/20 10:00 03/12/20 10:41 Decadron PO 03/18/20 10:01 6 mg DAILY KIM Administration Diphenhydramine HCl 50 mg 03/11/20 16:32 Benadryl PO Q6H PRN Itching Divalproex Sodium 1,000 mg 03/10/20 22:00 03/12/20 00:11 Depakote Er PO 1,000 mg QHS KIM Administration Haloperidol Lactate 2 mg 03/09/20 15:39 03/12/20 01:00 Haldol IM 2 mg Q6H PRN Administration Agitation Heparin Sodium (Porcine) 5,000 unit 03/10/20 22:00 03/12/20 10:42 Heparin SUB-Q 5,000 unit Q12HR KIM Administration Hydralazine HCl 25 mg 03/09/20 14:00 03/12/20 15:04 Apresoline PO Not Given Q8HR KIM Hydralazine HCl 10 mg 03/09/20 10:49 Apresoline IV Q4HR PRN Hypertension Hydroxyzine HCl 10 mg 03/10/20 22:00 03/12/20 00:09 Atarax PO 10 mg QHS KIM Administration Cefepime HCl 2 gm in 100 mls @ 200 mls/hr 03/10/20 14:00 03/12/20 14:48 Cefepime/Ns 2 Gm/100 Ml IV Not Given Q8H KIM Protocol Insulin Glargine 10 units 03/12/20 00:30 03/12/20 00:09 Lantus SUB-Q 10 units QHS KIM Administration Insulin Human Lispro 0 unit 03/09/20 11:30 03/12/20 17:10 Humalog SUB-Q 8 unit ACHS KIM Administration Protocol Losartan Potassium 100 mg 03/11/20 10:00 03/12/20 10:49 Cozaar PO 100 mg QDAY KIM Administration Nifedipine 60 mg 03/11/20 10:00 03/12/20 10:49 Procardia Xl PO 60 mg QDAY KIM Administration Oxycodone/Acetaminophen 1 tab 03/09/20 10:40 Percocet 5/325 PO Q6H PRN Pain, Moderate (4-6) Pantoprazole Sodium 40 mg 03/10/20 07:30 03/12/20 08:00 Protonix PO Not Given QDAC KIM Risperidone 0.5 mg 03/10/20 22:00 03/12/20 10:41 Risperdal PO 0.5 mg BID KIM Administration Ziprasidone 20 mg 03/11/20 16:28 03/12/20 10:40 Geodon IM 20 mg Q4H PRN Administration Agitation Zolpidem Tartrate 5 mg 03/09/20 22:00 03/09/20 23:40 Ambien PO 5 mg QHS PRN Administration Sleep
[2020-03-13] MEDS: ZIPRASIDONE MESYLATE 20 MG VIAL IM PRN (01:35)
--- NOTE | 2020-03-13 06:24 | Event Note ---
Date: 03/13/20 The patient was evaluated in the emergency department for symptoms described in the history of present illness. He/she was evaluated in the context of the global COVID-19 pandemic, which necessitated consideration that the patient might be at risk for infection with the virus that causes COVID-19. Institutional protocols and algorithms that pertain to the evaluation of patients at risk for COVID-19 are in a state of rapid change based on information released by regulatory bodies including the CDC and federal and state organizations. These policies and algorithms were followed during the patient's care in the emergency department. Please note that these policies, procedures and recommendations changed on a rapid basis. During my entire encounter with this patient, I had on complete personal protective equipment. I responded to a CODE BLUE situation called overhead. I arrived to this patient's room, with no previous knowledge of the patient, and found her to be receiving [id number]-qeoy ventilation. Hospital physician, Dr. Shantanu Jameson, at the bedside, directing resuscitation. ER assistance is requested for airway management. Patient altered, with respiratory failure, likely multifactorial, obesity, probable pulmonary hypertension, probable obstructive sleep apnea, and COVID-19. Patient required emergent endotracheal intubation. Patient induced with ketamine. Laryngoscopy performed, gum elastic bougie inserted through the trachea, and a 7.0 endotracheal tube is inserted through the trachea. Copious secretions were noted in the oropharynx. Post intubation, O2 sat improved, post capnography color changes appreciated, and abdominal/diaphragmatic pressure is applied to relieve breath stacking. We will defer to the aforementioned hospital physician to initiate post ventilator management, and place patient in the intensive care unit. Prognosis is guarded.
--- NOTE | 2020-03-13 06:25 | Event Note ---
Date: 03/13/20 29-year-old -Faroese female on admission for acute respiratory failure due to Covid pneumonia found unresponsive in her room this morning. She was also found to be in respiratory distress with O2 saturation in the 70s. Patient was placed on oxygen by nasal cannula without any significant improvement. She was subsequently intubated by the ER physician. Will transfer into the intensive care unit for further management. We will place consult to the architecture department chair for evaluation and follow-up . Meanwhile we will schedule for chest x-ray and ABG.
[2020-03-13] MEDS ORDERED: MINERAL OIL/PETROLATUM, WHITE OPHTH OINT 3.5 GM OU PRN ×2 (06:41→07:00)
[2020-03-13] MEDS ORDERED: LIP THERAPY VASELINE TP PRN ×2 (06:41→07:00)
[2020-03-13] MEDS ORDERED: ROCURONIUM 50 MG/5 ML INJ IV ONE ×2 (07:00→15:57)
[2020-03-13] MEDS: hydrALAZINE 25 MG TAB PO SCH (07:23)
[2020-03-13] MEDS: CEFEPIME/NS 2 GM/100 ML 2 GM/100 ML BAG IV SCH ×3 (07:27→23:13)
--- NOTE | 2020-03-13 07:29 | XRay Report ---
CHEST 1 VIEW INDICATION: ETT placement. COMPARISON: 03/09/2020 FINDINGS: SUPPORT DEVICES: New endotracheal tube tip located near the origin of the right mainstem bronchus ki uld be retracted 3-4 cm HEART: Stable cardia megaly. LUNGS/PLEURA: Persistent patchy multifocal airspace disease with some symmetry which may reflect a co mponent of interstitial edema. ADDITIONAL FINDINGS: None. IMPRESSION: 1. Endotracheal tube tip near the right mainstem bronchus should be retracted 3-4 cm. 2. Pulmonary findings as above. Signer Name: Rick Hollis MD Signed: 03/13/2020 7:24 AM Workstation Name: [id number]
[2020-03-13 09:29] LABS: ABG Base Excess 10.8 mmol/L (-2.0-3.0); ABG HCO3 39.3 mmol/L (20.0-26.0); ABG Methemoglobin 0.6 % (0.0-1.5); ABG PCO2 76.7 mm Hg; ABG PH 7.327 pH Units (7.350-7.450)
[2020-03-13] MEDS: fentaNYL DRIP Premix 2,000 MCG/100 ML BAG IV SCH ×3 (10:49→23:31)
[2020-03-13] MEDS: HEPARIN 5,000 UNIT/1 ML VIAL SUB-Q SCH ×2 (10:50→23:12)
[2020-03-13] MEDS: INSULIN LISPRO 100 UNIT/ML VIAL 3 mL SUB-Q SCH ×3 (12:18→19:13)
--- NOTE | 2020-03-13 12:21 | Consultation ---
History of Present Illness Consult date: 03/13/20 Requesting physician: SIRIA JAMESON Reason for consult: other (COVID 19, critical care management) History of present illness: HOSPITALIST DOCUMENTATION 29-year-old -[place]ian female on admission for acute respiratory failure due to Covid pneumonia found unresponsive in her room this morning. She was also found to be in respiratory distress with O2 saturation in the 70s. Patient was placed on oxygen by nasal cannula without any significant improvement. She was subsequently intubated by the ER physician. Will transfer into the intensive care unit for further management. ED PHYSICIAN DOCUMENTATION The patient was evaluated in the emergency department for symptoms described in the history of present illness. He/she was evaluated in the context of the global COVID-19 pandemic, which necessitated consideration that the patient might be at risk for infection with the virus that causes COVID-19. Insti tutional protocols and algorithms that pertain to the evaluation of patients at risk for COVID-19 are in a state of rapid change based on information released by regulatory bodies including the CDC and federal and state organizations. These policies and algorithms were followed during the patient's care in the emergency department. Please note that these policies, procedures and recommendations changed on a rapid basis. During my entire encounter with this patient, I had on complete personal p rotective equipment. I responded to a CODE BLUE situation called overhead. I arrived to this patien t's room, with no previous knowledge of the patient, and found her to be receiving [id number] ventilation. Hospital physician, Dr. Shantanu Jameson, at the bedside, directing resuscitation. ER assistance is requested for airway management. Patient altered, with respiratory failure, likely multifactorial, obesity, probable pulmonary hypertension, probable obstructive sleep apnea, and COVID-19. Patient required emergent endotracheal intubation. Patient induced with ketamine. Laryngoscopy performed, gum elastic bougie inserted through the trachea, and a 7.0 endotracheal tube is inserted through the trachea. Copious secretions were noted in the oropharynx. Post intubation, O2 sat improved, post capnography color changes appreciated, and abdominal/diaphragmatic pressure is applied to relieve breath stacking. We will defer to the aforementioned hospital physician to initiate post ventilator management, and place patient in the intensive care unit. Prognosis is guarded. Patient was transferred to the ICU, orally intubated and I have been consulted for critical care management. Patient was seen and examined. Vitals, labs, medications, chart and imaging reviewed. She is agitated and hypertenisve- fentanyl and propofol ordered. Discussed with hospitalist- Dr. Vale Past History Past Medical History: diabetes, hypertension, hyperlipidemia, other (History of recent Covid infection) Past Surgical History: No surgical history Social history: full code. denies: smoking, alcohol abuse, prescription drug abuse Family history: hypertension Medications and Allergies Allergies Allergy/AdvReac Type Severity Reaction Status Date / Time lorazepam [From Ativan] AdvReac Unknown Verified 03/09/20 07:27 naloxone [From Narcan] AdvReac Unknown Verified 03/09/20 07:28 Home Medications Medication Instructions Recorded Confirmed Last Taken Type Citalopram Hydrobromide 20 mg PO QHS 03/09/20 03/09/20 Unknown History [Citalopram HBr] Divalproex ER [DepaKOTE ER] 1,000 mg PO QHS 03/09/20 03/09/20 Unknown History Furosemide [Lasix] 20 mg PO QDAY 03/09/20 03/09/20 Unknown History Losartan [Cozaar] 100 mg PO QDAY 03/09/20 03/09/20 Unknown History NIFEdipine [Nifedipine ER] 60 mg PO QDAY 03/09/20 03/09/20 Unknown History carvediloL [Coreg] 6.25 mg PO BID 03/09/20 03/09/20 Unknown History hydrOXYzine HCL [Atarax] 10 mg PO QHS 03/09/20 03/09/20 Unknown History risperiDONE [RisperDAL] 0.5 mg PO BID 03/09/20 03/09/20 Unknown History Active Meds: Active Medications Dexamethasone (Decadron) 6 mg PO DAILY [facility] Stop: 03/18/20 10:01 Last Admin: 03/12/20 10:41 Dose: 6 mg Documented by: Fentanyl (Sublimaze) 50 mcg IV Q10MIN PRN PRN Reason: ANALGESIA Haloperidol Lactate (Haldol) 2 mg IM Q6H PRN PRN Reason: Agitation Last Admin: 03/12/20 22:55 Dose: 2 mg Documented by: Heparin Sodium (Porcine) (Heparin) 5,000 unit SUB-Q Q12HR KIM Last Admin: 03/13/20 10:50 Dose: 5,000 unit Documented by: Hydralazine HCl (Apresoline) 10 mg IV Q4HR PRN PRN Reason: Hypertension Hydrophilic Ointment (Vaseline Lip Therapy) 1 applic TP Q2HR PRN PRN Reason: Dry Lips Cefepime HCl (Cefepime/Ns 2 Gm/100 Ml) 2 gm in 100 mls @ 200 mls/hr IV Q8H [facility]; Protocol Last Admin: 03/13/20 07:27 Dose: Not Given Documented by: Fentanyl Citrate (Fentanyl Drip Premix) 2,000 mcg in 100 mls @ 8.27 mls/hr IV TITR [facility]; Protocol Last Admin: 03/13/20 10:49 Dose: 1 mcg/kg/hr, 8.27 mls/hr Documented by: Insulin Glargine (Lantus) 10 units SUB-Q QHS [facility] Last Admin: 03/12/20 22:54 Dose: 10 units Documented by: Insulin Human Lispro (Humalog) 0 unit SUB-Q ACHS [facility]; Protocol Last Admin: 03/13/20 12:19 Dose: Not Given Documented by: Losartan Potassium (Cozaar) 100 mg PO QDAY [facility] Last Admin: 03/12/20 10:49 Dose: 100 mg Documented by: Multi-Ingred Cream/Lotion/Oil/Oint (Artificial Tears Ophth Oint) 1 applic OU Q4HR PRN PRN Reason: Dry Eye(s) Nifedipine (Procardia Xl) 60 mg PO QDAY [facility] Last Admin: 03/12/20 10:49 Dose: 60 mg Documented by: Oxycodone/Acetaminophen (Percocet 5/325) 1 tab PO Q6H PRN PRN Reason: Pain, Moderate (4-6) Pantoprazole Sodium (Protonix) 40 mg PO QDAC [facility] Last Admin: 03/12/20 08:00 Dose: Not Given Documented by: Risperidone (Risperdal) 0.5 mg PO BID [facility] Last Admin: 03/12/20 22:54 Dose: 0.5 mg Documented by: Ziprasidone (Geodon) 20 mg IM Q4H PRN PRN Reason: Agitation Last Admin: 03/13/20 01:35 Dose: 20 mg Documented by: Review of Systems ROS unobtainable: due to endotracheal tube, due to mental status Physical Examination Vital signs: Vital Signs BP Pulse Ox 170/102 96 03/09/20 07:31 03/09/20 07:31 General appearance: appears uncomfortable Eyes: non-icteric ENT: oropharynx moist Neck: supple, no lymphadenopathy, other (large neck circumference) Effort: mildly labored Ascultation: Bilateral: diminished breath sounds, rhonchi Cardiovascular: regular rate and rhythm, other (S1,S2) Gastrointestinal: normoactive bowel sounds, soft, non-distended, other (obese) Integumentary: rash Extremities: pulses normal, cool, edema unable to assess other (unable to assess) Results - Laboratory Findings CBC and BMP: 03/14/20 09:17 03/14/20 09:17 ABG ABG pH 7.327 pH Units (7.350-7.450) L 03/13/20 09:15 ABG pCO2 76.7 mm Hg 03/13/20 09:15 ABG pO2 73.0 mm Hg (80.0-90.0) L 03/13/20 09:15 ABG O2 Saturation 96.0 % (95.0-99.0) 03/13/20 09:15 PT/INR, D-dimer PT 13.7 Sec. (12.2-14.9) 03/09/20 08:27 INR 1.06 (0.87-1.13) 03/09/20 08:27 D-Dimer 1042.81 ng/mlDDU (0-234) H 03/09/20 08:27 Abnormal lab findings: Abnormal Labs 03/09/20 03/09/20 03/09/20 08:27 08:27 08:27 WBC 15.8 H RBC 5.43 H MCH 24 L RDW 19.3 H B[place] % (Auto) 8.2 H [place] # (Auto) 1.3 H Seg Neutrophils % 70.4 H Seg Neutrophils # 11.1 H D-Dimer ABG pH ABG pO2 ABG HCO3 ABG Base Excess ABG Hemoglobin Oxyhemoglobin Chloride 97.1 L BUN 29 H Glucose 178 H POC Glucose Hemoglobin A1c Lactic Acid 3.70 H* Lactate Dehydrogenase 369 H C-Reactive Protein 3.00 H NT-Pro-B Natriuret Pep Coronavirus (PCR) 03/09/20 03/09/20 03/09/20 08:27 08:27 08:27 WBC RBC MCH RDW [place] % (Auto) [place] # (Auto) Seg Neutrophils % Seg Neutrophils # D-Dimer 1042.81 H ABG pH ABG pO2 ABG HCO3 ABG Base Excess ABG Hemoglobin Oxyhemoglobin Chloride BUN Glucose POC Glucose Hemoglobin A1c 8.0 H Lactic Acid Lactate Dehydrogenase C-Reactive Protein NT-Pro-B Natriuret Pep 2914 H Coronavirus (PCR) 03/09/20 03/09/20 03/10/20 08:43 23:04 05:23 WBC RBC MCH RDW [place] % (Auto) [place] # (Auto) Seg Neutrophils % Seg Neutrophils # D-Dimer ABG pH ABG pO2 ABG HCO3 ABG Base Excess ABG Hemoglobin Oxyhemoglobin Chloride BUN Glucose POC Glucose 361 H Hemoglobin A1c Lactic Acid 6.80 H* Lactate Dehydrogenase C-Reactive Protein NT-Pro-B Natriuret Pep Coronavirus (PCR) Positive A 03/10/20 03/10/20 03/10/20 08:19 10:49 17:11 WBC RBC MCH RDW [place] % (Auto) [place] # (Auto) Seg Neutrophils % Seg Neutrophils # D-Dimer ABG pH ABG pO2 ABG HCO3 ABG Base Excess ABG Hemoglobin Oxyhemoglobin Chloride BUN Glucose POC Glucose 371 H 423 H 373 H Hemoglobin A1c Lactic Acid Lactate Dehydrogenase C-Reactive Protein NT-Pro-B Natriuret Pep Coronavirus (PCR) 03/11/20 03/11/20 03/11/20 00:29 07:52 13:12 WBC RBC MCH RDW [place] % (Auto) [place] # (Auto) Seg Neutrophils % Seg Neutrophils # D-Dimer ABG pH ABG pO2 ABG HCO3 ABG Base Excess ABG Hemoglobin Oxyhemoglobin Chloride BUN Glucose POC Glucose 242 H 233 H 352 H Hemoglobin A1c Lactic Acid Lactate Dehydrogenase C-Reactive Protein NT-Pro-B Natriuret Pep Coronavirus (PCR) 03/11/20 03/11/20 03/12/20 15:24 22:54 08:22 WBC RBC MCH RDW [place] % (Auto) [place] # (Auto) Seg Neutrophils % Seg Neutrophils # D-Dimer ABG pH ABG pO2 ABG HCO3 ABG Base Excess ABG Hemoglobin Oxyhemoglobin Chloride BUN Glucose POC Glucose 386 H 418 H 431 H Hemoglobin A1c Lactic Acid Lactate Dehydrogenase C-Reactive Protein NT-Pro-B Natriuret Pep Coronavirus (PCR) 11/27/20 11/27/20 11/27/20 11:34 16:53 22:20 WBC RBC MCH RDW [place] % (Auto) [place] # (Auto) Seg Neutrophils % Seg Neutrophils # D-Dimer ABG pH ABG pO2 ABG HCO3 ABG Base Excess ABG Hemoglobin Oxyhemoglobin Chloride BUN Glucose POC Glucose 310 H 358 H 295 H Hemoglobin A1c Lactic Acid Lactate Dehydrogenase C-Reactive Protein NT-Pro-B Natriuret Pep Coronavirus (PCR) 03/13/20 03/13/20 03/13/20 05:48 09:15 12:11 WBC RBC MCH RDW [place] % (Auto) [place] # (Auto) Seg Neutrophils % Seg Neutrophils # D-Dimer ABG pH 7.327 L ABG pO2 73.0 L ABG HCO3 39.3 H ABG Base Excess 10.8 H ABG Hemoglobin 11.2 L Oxyhemoglobin 93.4 L Chloride BUN Glucose POC Glucose 216 H 148 H Hemoglobin A1c Lactic Acid Lactate Dehydrogenase C-Reactive Protein NT-Pro-B Natriuret Pep Coronavirus (PCR) - Diagnostic Findings Chest x-ray: image reviewed Assessment and Plan Cardiopulmoanry arrest with ROSC Acute hypoxemic respiratory failure on MVS COVID Extreme obesity Pulmonary HTN Obesity hypoventilation syndrome --Monitor hemodynamics closely -VAP bundle addressed, Aspiration precautions HOB >40 -Lung protective strategies, ARDS net protocol -CXR, ABG in am and as clinically indicated -Contact and airborne isolation per facility protocols for COVID -Varela catheter in this critically ill patient with acute renal failure. Re-addr ess need for ongoing Varela in the next 24 hours -Avoid nephrotoxins, adjust all medications for CrCl and GFR -Daily assessment of readiness to wean; SAT and SBT in am - Bronchodilators with pulmonary hygiene per RT -Maintenance of sleep-wake cycle, avoid delirium -Place NGT and initiate enteric nutritional support -Nutrition consult placed - Accuchecks with glycemic control per SSI for target blood glucose of 140-180 mg/dL while critically ill; avoid hypoglycemia -Fentanyl and Propofol, titrate to RAss of -1 to -2 -Empiric antibiotics for HAP- Vanc and Cefepime, await further antibiotic manag ement per ID -Tracheal aspirate obtained post intubation, follow cultures - VTE prophylaxis -Enoxaparin - Stress ulcer prophylaxis -Famotidine - Avoid delirium; Avoid benzodiazepines -Mobility, off loading per facility protocol to prevent pressure ulcers -PT/OT, range of motion exercises -Get echocardiogram to evaluate LVEF and for pulmonary HTN -continue other care per attending / other consultants CONDITION: CRITICAL PROGNOSIS: GUARDED CODE STATUS: FULL CODE The high probability of a clinically significant, sudden or life-threatening deterioration of the respiratory, cardiovascular, system(s) required my full and direct attention, intervention and personal management. The aggregate critical care time was [65] minutes without overlap. Time includes spent on; [x] Data Review and interpretation [x] Patient assessment and monitoring of vital signs [x] Documentation [x] Medication orders and management She was evaluated in the context of the global COVID-19 pandemic, which necessitated consideration that the patient might be at risk for infection with the virus that causes COVID-19. Institutional protocols and algorithms that pertain to the evaluation of patients at risk for COVID-19 are in a state of rapid change based on information released by regulatory bodies including the CDC and federal and state organizations. These policies and algorithms were followed during the patient's care in the ICU. Please note that these policies, procedures and recommendations changed on a rapid basis.
[2020-03-13 12:48] LABS: Alanine Aminotransferase 128 units/L (7-56); Blood Urea Nitrogen 15 mg/dL (7-17); Calcium 8.8 mg/dL (8.4-10.2); Hemolysis Index 62
[2020-03-13 13:06] LABS: Basophils # (Auto) 0.1 K/mm3 (0.0-0.1); Basophils % (Auto) 0.4 % (0.0-1.8); Eosinophils % (Auto) 0.1 % (0.0-4.3); Hematocrit 34.5 % (30.3-42.9); Hemoglobin 10.2 gm/dl (10.1-14.3); Lymphocytes # (Auto) 1.4 K/mm3 (1.2-5.4); Lymphocytes % (Auto) 7.8 % (13.4-35.0); Mean Corpuscular HGB Conc 29 % (30-34); Mean Corpuscular Volume 82 fl (79-97); Monocytes # (Auto) 1.8 K/mm3 (0.0-0.8); Monocytes % (Auto) 9.7 % (0.0-7.3); Platelet Count 284 K/mm3 (140-440); Red Blood Count 4.21 M/mm3 (3.65-5.03); Red Cell Distribution Width 18.9 % (13.2-15.2)
[2020-03-13 13:14] LABS: BUN/Creatinine Ratio 25
--- NOTE | 2020-03-13 14:32 | XRay Report ---
XR abdomen 1V ap INDICATION / CLINICAL INFORMATION: Confirmation of OG tube. FINDINGS/IMPRESSION: There is gastric placement of enteric catheter. Nonspecific bowel gas pattern, with paucity of bowel gas. No radiographic evidence of obstruction. Signer Name: Bobby Harrell MD Signed: 03/13/2020 2:27 PM Workstation Name: [id number]
[2020-03-13] MEDS: risperiDONE 0.25 MG TAB PO SCH ×2 (14:51→23:12)
[2020-03-13] MEDS: DEXAMETHASONE 4 MG TAB PO SCH (14:52)
[2020-03-13] MEDS: NIFEdipine XL 60 MG TAB PO SCH (14:52)
[2020-03-13] MEDS: LOSARTAN 50 MG TAB PO SCH (14:53)
[2020-03-13] MEDS ORDERED: KETAMINE 500 MG/5 ML VIAL MDV ONE (15:57)
[2020-03-13] MEDS: ACETAMINOPHEN 325 MG/10.15 ML ORAL LIQD UNIT DOSE FEEDTUBE PRN (17:12)
[2020-03-13] MEDS: PANTOPRAZOLE 40 MG TAB PO SCH (17:13)
[2020-03-13] MEDS ORDERED: ETOMIDATE 20 MG/10 ML INJ IV ONE ×2 (18:15→18:46)
[2020-03-13] MEDS ORDERED: SUCCINYLCHOLINE CHLORIDE 200 MG/10 ML INJ MDV IV ONE (18:15)
[2020-03-13] MEDS ORDERED: SUCCINYLCHOLINE CHLORIDE 200 MG/10 ML INJ MDV ONE (19:00)
--- NOTE | 2020-03-13 19:20 | Procedure Note ---
Date of procedure: 03/13/20 Pre-op diagnosis: Covid, resp failure Post-op diagnosis: same Procedure: Called overhead for a STAT intubation of pt. Glidescope grade 2 view, 8.0ett place atraumatically. +CO2 and breath sounds. Within 2 min staff called me back to the room because they had pulled the ett out when pt's sats remained low. Etomidate and Sux given by RN, grade 2 view again, 8.0ett placed atraumatically a 2nd time. Confirmed visually that the ett was placed correctly with the glidesope, in addition to +CO2 and breath sounds. Pt left in ICU staff's care. Anesthesia: GETA Condition: critical Disposition: ICU
[2020-03-13] MEDS: fentaNYL 100 MCG/2 ML INJ IV PRN (21:08)
--- NOTE | 2020-03-13 21:11 | Progress Note ---
Assessment and Plan - Patient Problems (1) Acute respiratory failure due to COVID-19 Current Visit: Yes Status: Acute Plan to address problem: Supplemental oxygen, pulse oximetry, nebulizer therapy via MDI spacer, ambulate 3 times daily and as needed, pulmonary toilet, prone positioning while in bed. Patient high flow submental oxygen has been weaned off and patient placed on supplemental oxygen via nasal cannula. We will continue to wean as tolerated. Discharge planning when patient is able to maintain pulse oximetry on 4 L/min or less. The high probability of a clinically significant, sudden or life threatening deterioration of the [pulmonary, cardiac, renal, neuro] system(s) required my full and direct attention, intervention and personal management. The aggregate critical care time was [90] minutes. This time is in addition to time spent performing reported procedures but includes the following: [x] Data Review and interpretation [x] Patient assessment and monitoring of vital signs [x] Documentation [x] Medication orders and management (2) Obesity hypoventilation syndrome Current Visit: Yes Status: Acute Plan to address problem: Pulse oximetry, nebulizer therapy, supplemental oxygen, outpatient pulmonary follow-up for sleep study, balanced diet, increase physical activity at discharge (3) Coronavirus infection Current Visit: Yes Status: Acute Plan to address problem: Coronavirus protocol: Infectious disease service consulted, contact precautions, isolation precaution, steroid therapy, prone listening while in bed. (4) Hypertension Current Visit: Yes Status: Acute Qualifiers: Hypertension type: essential hypertension Qualified Code(s): I10 - Essential (primary) hypertension Plan to address problem: Monitor blood pressure every shift, continue medical management (5) Diabetes Current Visit: Yes Status: Acute Plan to address problem: Consistent carbohydrate diet, sliding scale insulin therapy, Accu-Chek, hypoglycemia protocol (6) Pneumonia Current Visit: Yes Status: Acute Qualifiers: Laterality: bilateral Plan to address problem: Pneumonia protocol: Supplemental oxygen, IV antibiotic therapy, pulse oximetry, blood culture. (7) Pulmonary hypertension Current Visit: Yes Status: Acute Plan to address problem: Supportive care, outpatient pulmonology follow-up for sleep study. And restratification for vasodilator therapy. (8) DVT prophylaxis Current Visit: Yes Status: Acute Plan to address problem: SCD to bilateral lower extremities while in bed, prophylactic anticoagulation. History Interval history: 29 YO Female HD #5 with acute hypoxemic respiratory failure secondary to coronavirus infection, obesity hypoventilation syndrome. Decompensated overnight. Patient underwent cardiac arrest and was intubated and placed on ventilatory support. Patient intubated and on vent support at the time of my evaluation. Patient is critically ill. Hospitalist Physical - Constitutional Vitals: Temp Pulse Resp BP Pulse Ox 99.2 F 87 28 H 130/58 92 03/13/20 20:00 03/13/20 20:30 03/13/20 20:20 03/13/20 20:20 03/13/20 20:20 General appearance: Present: severe distress, obese, other (Morbidly obese patient is screaming and shouting asking for staff) - EENT Eyes: Present: miosis ENT: hearing decreased - Neck Neck: Present: supple - Respiratory Respiratory effort: labored Respiratory: bilateral: diminished - Cardiovascular Rhythm: regular Heart Sounds: Present: S1 & S2 - Extremities Extremities: no ischemia Peripheral Pulses: within normal limits - Abdominal General gastrointestinal: soft, non-tender, non-distended - Integumentary Integumentary: Present: clear, dry - Psychiatric Psychiatric: no appropriate mood/affect, no intact judgment & insight - Neurologic Neurologic: CNII-XII intact, no focal deficits, no gait normal HEART Score - HEART Score Troponin: Troponin T < 0.010 ng/mL (0.00-0.029) 03/09/20 08:27 Results - Labs CBC & Chem 7: 03/13/20 12:09 03/13/20 12:09 Labs: Laboratory Last Values WBC 18.3 K/mm3 (4.5-11.0) H 03/13/20 12:09 RBC 4.21 M/mm3 (3.65-5.03) 03/13/20 12:09 Hgb 10.2 gm/dl (10.1-14.3) 03/13/20 12:09 Hct 34.5 % (30.3-42.9) 03/13/20 12:09 MCV 82 fl (79-97) 03/13/20 12:09 MCH 24 pg (28-32) L 03/13/20 12:09 MCHC 29 % (30-34) L 03/13/20 12:09 RDW 18.9 % (13.2-15.2) H 03/13/20 12:09 Plt Count 284 K/mm3 (140-440) 03/13/20 12:09 Lymph % (Auto) 7.8 % (13.4-35.0) L 03/13/20 12:09 [place] % (Auto) 9.7 % (0.0-7.3) H 03/13/20 12:09 Eos % (Auto) 0.1 % (0.0-4.3) 03/13/20 12:09 Baso % (Auto) 0.4 % (0.0-1.8) 03/13/20 12:09 Lymph # (Auto) 1.4 K/mm3 (1.2-5.4) 03/13/20 12:09 [place] # (Auto) 1.8 K/mm3 (0.0-0.8) H 03/13/20 12:09 Eos # (Auto) 0.0 K/mm3 (0.0-0.4) 03/13/20 12:09 Baso # (Auto) 0.1 K/mm3 (0.0-0.1) 03/13/20 12:09 Seg Neutrophils % 82.0 % (40.0-70.0) H 03/13/20 12:09 Seg Neutrophils # 15.0 K/mm3 (1.8-7.7) H 03/13/20 12:09 PT 13.7 Sec. (12.2-14.9) 03/09/20 08:27 INR 1.06 (0.87-1.13) 03/09/20 08:27 APTT 25.4 Sec. (24.2-36.6) 03/09/20 08:27 D-Dimer 1042.81 ng/mlDDU (0-234) H 03/09/20 08:27 ABG pH 7.327 pH Units (7.350-7.450) L 03/13/20 09:15 ABG pCO2 76.7 mm Hg 03/13/20 09:15 ABG pO2 73.0 mm Hg (80.0-90.0) L 03/13/20 09:15 ABG HCO3 39.3 mmol/L (20.0-26.0) H 03/13/20 09:15 ABG O2 Saturation 96.0 % (95.0-99.0) 03/13/20 09:15 ABG O2 Content 14.8 (0.0-44) 03/13/20 09:15 ABG Base Excess 10.8 mmol/L (-2.0-3.0) H 03/13/20 09:15 ABG Hemoglobin 11.2 gm/dl (12.0-16.0) L 03/13/20 09:15 ABG Carboxyhemoglobin 2.1 % (0.0-5.0) 03/13/20 09:15 ABG Methemoglobin 0.6 % (0.0-1.5) 03/13/20 09:15 Oxyhemoglobin 93.4 % (95.0-99.0) L 03/13/20 09:15 FiO2 100 % 03/13/20 09:15 Sodium 143 mmol/L (137-145) 03/13/20 12:09 Potassium 5.1 mmol/L (3.6-5.0) H 03/13/20 12:09 Chloride 98.1 mmol/L (98-107) 03/13/20 12:09 Carbon Dioxide 37 mmol/L (22-30) H D 03/13/20 12:09 Anion Gap 13 mmol/L 03/13/20 12:09 BUN 15 mg/dL (7-17) 03/13/20 12:09 Creatinine 0.6 mg/dL (0.6-1.2) 03/13/20 12:09 Estimated GFR > 60 ml/min 03/13/20 12:09 BUN/Creatinine Ratio 25 % 03/13/20 12:09 Glucose 154 mg/dL (65-100) H 03/13/20 12:09 POC Glucose 217 mg/dL (70-105) H 03/13/20 17:23 Hemoglobin A1c 8.0 % (4-6) H 03/09/20 08:27 Lactic Acid 6.80 mmol/L (0.7-2.0) H* 03/10/20 05:23 Calcium 8.8 mg/dL (8.4-10.2) 03/13/20 12:09 Ferritin 108.9 ng/mL (10.0-200.0) 03/09/20 08:27 Total Bilirubin 1.00 mg/dL (0.1-1.2) 03/13/20 12:09 AST 47 units/L (5-40) H 03/13/20 12:09 ALT 128 units/L (7-56) H 03/13/20 12:09 Alkaline Phosphatase 85 units/L (35-129) 03/13/20 12:09 Lactate Dehydrogenase 369 units/L (91-180) H 03/09/20 08:27 Troponin T < 0.010 ng/mL (0.00-0.029) 03/09/20 08:27 C-Reactive Protein 3.00 mg/dL (0.00-1.30) H 03/09/20 08:27 NT-Pro-B Natriuret Pep 2914 pg/mL (0-450) H 03/09/20 08: Total Protein 5.9 g/dL (6.3-8.2) L 03/13/20 12:09 Albumin 3.0 g/dL (3.9-5) L 03/13/20 12:09 Albumin/Globulin Ratio 1.0 % 03/13/20 12:09 Procalcitonin 0.28 ng/mL (<0.15) 03/09/20 08:27 HCG, Qual Negative (Negative) 03/13/20 12:09 Urine HCG, Qual Negative (Negative) 03/10/20 Unknown Coronavirus (PCR) Positive (Negative) A 03/09/20 08:43 Microbiology: Microbiology 03/13/20 Unknown Tracheal Aspirate Sputum Culture - Preliminary 03/09/20 08:27 Peripheral/Venous Blood Culture - Preliminary NO GROWTH AFTER 4 DAYS 03/09/20 08:27 Peripheral/Venous Blood Culture - Preliminary NO GROWTH AFTER 4 DAYS - Diagnostic Impressions Diagnostic Impressions: Echocardiogram 03/10/20 11:41 Transthoracic Echocardiogram Indication: New CHF BP: 129/80 HR: 81 Conclusions *The right heart chambers are both moderate-severely dilated. There is at least moderate tricuspid regurgitation. There is moderately-severe pulmonary hypertension with PA systolic pressures of 64mmHg. Findings suggest chronic lung disease, but acute PE should be considered. *Left ventricular chamber size and systolic function are normal. *The estimated ejection fraction is 55-60%. *There is trace of mitral regurgitation. Findings Left Ventricle: The left ventricular chamber size is normal. There is no left ventricular hypertrophy. Global left ventricular systolic function is normal. The estimated ejection fraction is 55-60%. Left Atrium: The left atrial chamber size is normal. Right Ventricle: The right ventricle is moderately dilated. The right ventricular global systolic function is moderately reduced. Right Atrium: The right atrium is moderate to severely dilated. Aortic Valve: The aortic valve is trileaflet. The aortic valve leaflets are mildly thickened. There is no evidence of aortic regurgitation. There is no evidence of aortic stenosis. Mitral Valve: The mitral valve leaflets are mildly thickened. There is trace of mitral regurgitation. There is no evidence of mitral stenosis. Tricuspid Valve: The tricuspid valve leaflets are normal. There is moderate tricuspid regurgitation. The right ventricular systolic pressure is calculated at 64 mmHg. There is evidence of severe pulmonary hypertension. Pulmonic Valve: There is mild pulmonic regurgitation. Aorta: There is no dilatation of the ascending aorta. There is no dilatation of the aortic root. Venous: The inferior vena cava appears normal in size. Measurements Chambers 2D Name Value Normal Range IVSd (2D) 0.8 cm (0.6 - 1.1) LVPWd (2D) 0.87 cm (0.6 - 1.1) LVIDd (2D) 4.69 cm (3.7 - 5.6) LVIDs (2D) 3.64 cm (2 - 3.8) LV FS (2D) 22.38 % - EF Teichholz (2D) 45.1 % - Ao root diameter (2D) 2.17 cm (2 - 3.7) Volumes/Mass Name Value Normal Range LA ESV SP 4CH (A/L) 42.29 ml - LA ESV SP 2CH (A/L) 63.31 ml - LA ESV BP (A/L) 55.21 ml - LA ESV BP (A/L) index 23.49 ml/m2 - LA ESV SP 4CH (MOD) 39.24 ml - LA ESV SP 2CH (MOD) 62.57 ml - LA ESV BP (MOD) 52.02 ml - LA ESV BP (MOD) index 22.14 ml/m2 - Diastolic/Systolic Function Name Value Normal Range MV E-wave Vmax 1.13 m/sec - MV deceleration time 207.11 msec - MV A-wave Vmax 0.86 m/sec - MV E:A ratio 1.31 ratio - Aortic Valve Name Value Normal Range AV Vmax 1.91 m/sec - AV VTI 32.53 cm - AV peak gradient 14.61 mmHg - AV mean gradient 7.83 mmHg - LVOT diameter 1.78 cm - LVOT Vmax 1.67 m/sec - LVOT VTI 28.3 cm - LVOT peak gradient 11.17 mmHg - LVOT mean gradient 5.51 mmHg - SV LVOT 70.01 ml - JANUSZ (continuity Vmax) 2.16 cm2 - JANUSZ (continuity VTI) 2.15 cm2 - Tricuspid Valve Name Value Normal Range TR Vmax 3.59 m/sec - TR peak gradient 51.44 mmHg - RAP 8 mmHg - RVSP 64 mmHg - IVC diameter 2.38 cm (1.2 - 2.3) Varela/IV: Voiding Method Indwelling Catheter IV Catheter Type [Left Upper INT / Saline Lock arm] IV Catheter Type [Right INT / Saline Lock Forearm] IV Catheter Type [Right INT / Saline Lock Antecubital] IV Catheter Type [Right Hand] INT / Saline Lock IV Catheter Type [Left Hand] INT / Saline Lock Active Medications - Current Medications Current Medications: Generic Name Dose Route Start Last Admin Trade Name Freq PRN Reason Stop Dose Admin Acetaminophen 650 mg 03/13/20 16:54 03/13/20 17:12 Tylenol FEEDTUBE 650 mg Q6H PRN Administration Pain, Mild (1-3) Dexamethasone 6 mg 03/11/20 10:00 03/13/20 14:52 Decadron PO 03/18/20 10:01 6 mg DAILY KIM Administration Fentanyl 50 mcg 03/13/20 09:36 03/13/20 21:08 Sublimaze IV 50 mcg Q10MIN PRN Administration ANALGESIA Haloperidol Lactate 2 mg 03/09/20 15:39 03/12/20 22:55 Haldol IM 2 mg Q6H PRN Administration Agitation Heparin Sodium (Porcine) 5,000 unit 03/10/20 22:00 03/13/20 10:50 Heparin SUB-Q 5,000 unit Q12HR KIM Administration Hydralazine HCl 10 mg 03/09/20 10:49 Apresoline IV Q4HR PRN Hypertension Hydrophilic Ointment 1 applic 03/13/20 07:00 Vaseline Lip Therapy TP Q2HR PRN Dry Lips Cefepime HCl 2 gm in 100 mls @ 200 mls/hr 03/10/20 14:00 03/13/20 14:50 Cefepime/Ns 2 Gm/100 Ml IV 200 mls/hr Q8H KIM Administration Protocol Fentanyl Citrate 2,000 mcg in 100 mls @ 8.27 mls/hr 03/13/20 10:00 03/13/20 21:02 Fentanyl Drip Premix IV 3 mcg/kg/hr TITR KIM 24.81 mls/hr Titration Protocol 1 MCG/KG/HR Insulin Glargine 10 units 03/12/20 00:30 03/12/20 22:54 Lantus SUB-Q 10 units QHS KIM Administration Insulin Human Lispro 0 unit 03/13/20 18:00 03/13/20 19:13 Humalog SUB-Q Not Given Q6H [facility] Protocol Losartan Potassium 100 mg 03/11/20 10:00 03/13/20 14:53 Cozaar PO 100 mg QDAY KIM Administration Multi-Ingred Cream/Lotion/Oil/Oint 1 applic 03/13/20 07:00 Artificial Tears Ophth Oint OU Q4HR PRN Dry Eye(s) Nifedipine 60 mg 03/11/20 10:00 03/13/20 14:52 Procardia Xl PO 60 mg QDAY KIM Administration Oxycodone/Acetaminophen 1 tab 03/09/20 10:40 Percocet 5/325 PO Q6H PRN Pain, Moderate (4-6) Pantoprazole Sodium 40 mg 03/10/20 07:30 03/13/20 17:13 Protonix PO 40 mg QDAC KIM Administration Risperidone 0.5 mg 03/10/20 22:00 03/13/20 14:51 Risperdal PO 0.5 mg BID KIM Administration Ziprasidone 20 mg 03/11/20 16:28 03/13/20 01:35 Geodon IM 20 mg Q4H PRN Administration Agitation Nutrition/Malnutrition Assess - Dietary Evaluation Nutrition/Malnutrition Findings: Nutrition Notes Start: 03/13/20 08:38 Freq: Status: Active Protocol: Document 03/13/20 08:39 TALAT (Rec: 03/13/20 08:45 TALAT [id number]) Nutrition Notes Need for Assessment generated from: MD Order Initial or Follow up Assessment Current Diagnosis Diabetes,Hypertension Other Pertinent Diagnosis COVID(+), pneumonia, acute respiratory failure Current Diet No diet Labs/Tests POC BG 216 Pertinent Medications Reviewed Height 4 ft 10 in Weight 165.4 kg Cade Body Weight (kg) 40.90 BMI 76.1 Weight Status Morbidly Obese Subjective/Other Information MD order to evaluate nutritional intakes. Pt on vent. Burn Absent Trauma Absent Current % PO Negligible Minimum of two criteria No physical signs of malnutrition #1 Nutrition Diagnosis Inadequate oral intake Etiology acute respiratory failure As Evidenced by Signs and Symptoms pt on vent and unable to consume PO Is patient on ventilator? Yes Is Patient Ambulatory and/or Out of Bed No REE-([facility]-confined to bed) 2729.208 Kcal/Kg value to use for calculation 12 Approximate Energy Requirements Using 1985 kcal/Kg Calculation Used for Recommendations Kcal/kg Additional Notes Pro: 102g (up to 2.5g/kg IBW) Fluid: 1 ml/kcal Nutrition Intervention Change Diet Order: Start TF when medically able or extubate Nutrition Support: Glucerna 1.2 at 65 ml/hr. Flush 100 ml q4h. Kcal 1,872 Protein (gm) 94 Fluid (mL) 1,256 Goal #1 Start TF or extubate Anticipated Discharge Needs: Cardiac, consistent CHO Follow-Up By: 03/16/20 Additional Comments FU for TF start or extubation
--- NOTE | 2020-03-13 22:08 | XRay Report ---
XR abdomen 1V ap INDICATION / CLINICAL INFORMATION: NGT placement confirmation. COMPARISON: 03/13/2020. FINDINGS/IMPRESSION: Nasogastric tube terminates in the distal stomach. Bandlike lucency overlying the left abdomen is pre sumed artifactual. Partially imaged bowel gas pattern is nonobstructive. Signer Name: Bobby Harrell MD Signed: 03/13/2020 10:04 PM Workstation Name: [id number]
--- NOTE | 2020-03-13 22:10 | XRay Report ---
. XR chest 1V ap INDICATION / CLINICAL INFORMATION: ETT placment confirmation. COMPARISON: 03/13/2020 FINDINGS: SUPPORT DEVICES: The endotracheal tube has been retracted, now terminating 2.7 cm above the anna. E nteric catheter are detailed separately. HEART /PULMONARY VASCULATURE: Enlarged with pulmonary vasculature congestion. LUNGS / PLEURA: Dense airspace consolidation with right lung remains. Left lung airspace disease is i mproved. No pleural effusion or pneumothorax. ADDITIONAL FINDINGS: No significant additional findings. IMPRESSION: CHF/volume overload with mild improvement in pulmonary edema, particularly on the left. Satisfactory position of endotracheal tube. Signer Name: Bobby Harrell MD Signed: 03/13/2020 10:05 PM Workstation Name: [id number]
[2020-03-13] MEDS: INSULIN GLARGINE 100 UNITS/ML SUB-Q SCH (23:12)
[2020-03-14] MEDS: fentaNYL DRIP Premix 2,000 MCG/100 ML BAG IV SCH ×8 (02:46→23:45)
[2020-03-14] MEDS: INSULIN LISPRO 100 UNIT/ML VIAL 3 mL SUB-Q SCH ×4 (02:48→18:21)
[2020-03-14] MEDS ORDERED: WATER FOR INJ Sterile (PF) 10 ML ONE (03:41)
[2020-03-14] MEDS: ZIPRASIDONE MESYLATE 20 MG VIAL IM PRN (03:51)
[2020-03-14] MEDS: fentaNYL 100 MCG/2 ML INJ IV PRN (05:13)
[2020-03-14] MEDS: CEFEPIME/NS 2 GM/100 ML 2 GM/100 ML BAG IV SCH ×3 (06:19→22:14)
[2020-03-14 06:47] LABS: ABG Base Excess 13.5 mmol/L (-2.0-3.0); ABG HCO3 37.3 mmol/L (20.0-26.0); ABG Methemoglobin 0.5 % (0.0-1.5); ABG Oxygen Saturation 97.6 % (95.0-99.0); ABG PCO2 44.2 mm Hg; ABG PH 7.544 pH Units (7.350-7.450); ABG PO2 92.8 mm Hg (80.0-90.0)
[2020-03-14] MEDS: PANTOPRAZOLE 40 MG TAB PO SCH (07:58)
[2020-03-14] MEDS ORDERED: SIMPLE SYRUP 15 ML FEEDTUBE PRN ×2 (08:36)
[2020-03-14] MEDS ORDERED: SODIUM BICARBONATE 325 MG TAB FEEDTUBE PRN (08:36)
[2020-03-14] MEDS ORDERED: LIPASE 10,500/PROTEASE 25,000/AMYLASE 43,750 (UNITS) DR CAP FEEDTUBE PRN (08:36)
[2020-03-14] MEDS: LOSARTAN 50 MG TAB PO SCH (09:35)
[2020-03-14] MEDS: DEXAMETHASONE 4 MG TAB PO SCH (09:35)
[2020-03-14] MEDS: NIFEdipine XL 60 MG TAB PO SCH (09:35)
[2020-03-14] MEDS: risperiDONE 0.25 MG TAB PO SCH ×2 (09:36→22:15)
[2020-03-14] MEDS: HEPARIN 5,000 UNIT/1 ML VIAL SUB-Q SCH ×2 (09:36→22:15)
[2020-03-14] MEDS: ACETAMINOPHEN 325 MG/10.15 ML ORAL LIQD UNIT DOSE FEEDTUBE PRN (09:36)
[2020-03-14 10:01] LABS: Basophils # (Auto) 0.1 K/mm3 (0.0-0.1); Basophils % (Auto) 0.4 % (0.0-1.8); Eosinophils % (Auto) 0.1 % (0.0-4.3); Hematocrit 33.3 % (30.3-42.9); Hemoglobin 10.3 gm/dl (10.1-14.3); Lymphocytes # (Auto) 1.4 K/mm3 (1.2-5.4); Lymphocytes % (Auto) 9.5 % (13.4-35.0); Mean Corpuscular HGB Conc 31 % (30-34); Mean Corpuscular Volume 80 fl (79-97); Monocytes # (Auto) 0.9 K/mm3 (0.0-0.8); Monocytes % (Auto) 6.2 % (0.0-7.3); Platelet Count 222 K/mm3 (140-440); Red Blood Count 4.17 M/mm3 (3.65-5.03); Red Cell Distribution Width 19.1 % (13.2-15.2)
[2020-03-14 10:14] LABS: Alanine Aminotransferase 152 units/L (7-56); Blood Urea Nitrogen 15 mg/dL (7-17); Hemolysis Index 19
[2020-03-14 10:16] LABS: BUN/Creatinine Ratio 30
--- NOTE | 2020-03-14 12:36 | Progress Note ---
Assessment and Plan Cultures: Blood culture 03/09/2020 pending Urine culture 03/09/2020 pending Tracheal aspirate culture 03/13/2020 staph aureus A/P: 29-year-old female past medical history morbid obesity, obesity hypoventilation syndrome, diabetes admitted with shortness of breath #COVID-19 pneumonia: Diagnosed over 2 weeks ago, as such not a candidate for remdesivir. Given that her ferritin is normal, less likely to be in cytokine storm. Procalcitonin slightly elevated at 0.3 #Acute hypoxemic respiratory failure: Likely secondary to COVID-19 infection versus CHF versus bacterial pneumonia. Currently on intubated #Diabetes: tight glycemic control for best outcomes. #Morbid obesity: Associated with worse outcomes, recommend diet modifications Recs: -Order TTE for evaluation of CHF -Started cefepime 2 g every 8 hours given elevated white count, lactic acid and procalcitonin -Start vancomycin pending staph aureus JEOVANY -Follow white count. Thank you for the consult, we will continue to follow. Freida Koch MD [facility] O: [phone] F: [phone] Subjective Date of service: 03/14/20 Interval history: Patient now intubated in ICU. Febrile to 100.6. White count elevated at 15. Tracheal aspirate cultures with staph aureus. Imaging personally viewed: Chest x-ray: CHF/volume overload, improvement in pulmonary edema. Objective - Exam Narrative Exam: Physical exam deferred due to PPE conservation strategy. Please refer to primary team's note. - Constitutional Vitals: Vital Signs Temp Pulse Resp BP Pulse Ox 100.6 F H 92 H 27 H 97/49 95 03/14/20 08:00 03/14/20 11:16 03/14/20 10:30 03/14/20 11:16 03/14/20 11:16 Temperature -Last 24 Hours Temperature 100.6 F Temperature 100.6 F Temperature 98.9 F Temperature 99.0 F Temperature 99.2 F Temperature 102.8 F - Labs CBC & Chem 7: 03/14/20 09:17 03/14/20 09:17 Labs: Abnormal lab results 03/13/20 03/13/20 03/13/20 Range/Units 12:09 12:09 17:23 WBC 18.3 H (4.5-11.0) K/mm3 MCH 24 L (28-32) pg MCHC 29 L (30-34) % RDW 18.9 H (13.2-15.2) % Lymph % (Auto) 7.8 L (13.4-35.0) % [place] % (Auto) 9.7 H (0.0-7.3) % [place] # (Auto) 1.8 H (0.0-0.8) K/mm3 Seg Neutrophils % 82.0 H (40.0-70.0) % Seg Neutrophils # 15.0 H (1.8-7.7) K/mm3 ABG pH (7.350-7.450) pH Units ABG pO2 (80.0-90.0) mm Hg ABG HCO3 (20.0-26.0) mmol/L ABG Base Excess (-2.0-3.0) mmol/L ABG Hemoglobin (12.0-16.0) gm/dl Potassium 5.1 H (3.6-5.0) mmol/L Carbon Dioxide 37 H D (22-30) mmol/L Creatinine (0.6-1.2) mg/dL Glucose 154 H (65-100) mg/dL POC Glucose 217 H (70-105) mg/dL Total Bilirubin (0.1-1.2) mg/dL AST 47 H (5-40) units/L ALT 128 H (7-56) units/L Total Protein 5.9 L (6.3-8.2) g/dL Albumin 3.0 L (3.9-5) g/dL 03/14/20 03/14/20 03/14/20 Range/Units 06:15 06:55 09:17 WBC 14.9 H (4.5-11.0) K/mm3 MCH 25 L (28-32) pg MCHC (30-34) % RDW 19.1 H (13.2-15.2) % Lymph % (Auto) 9.5 L (13.4-35.0) % [place] % (Auto) (0.0-7.3) % [place] # (Auto) 0.9 H (0.0-0.8) K/mm3 Seg Neutrophils % 83.8 H (40.0-70.0) % Seg Neutrophils # 12.5 H (1.8-7.7) K/mm3 ABG pH 7.544 H (7.350-7.450) pH Units ABG pO2 92.8 H (80.0-90.0) mm Hg ABG HCO3 37.3 H (20.0-26.0) mmol/L ABG Base Excess 13.5 H (-2.0-3.0) mmol/L ABG Hemoglobin 10.5 L (12.0-16.0) gm/dl Potassium (3.6-5.0) mmol/L Carbon Dioxide (22-30) mmol/L Creatinine (0.6-1.2) mg/dL Glucose (65-100) mg/dL POC Glucose 182 H (70-105) mg/dL Total Bilirubin (0.1-1.2) mg/dL AST (5-40) units/L ALT (7-56) units/L Total Protein (6.3-8.2) g/dL Albumin (3.9-5) g/dL 03/14/20 03/14/20 Range/Units 09:17 11:43 WBC (4.5-11.0) K/mm3 MCH (28-32) pg MCHC (30-34) % RDW (13.2-15.2) % Lymph % (Auto) (13.4-35.0) % [place] % (Auto) (0.0-7.3) % [place] # (Auto) (0.0-0.8) K/mm3 Seg Neutrophils % (40.0-70.0) % Seg Neutrophils # (1.8-7.7) K/mm3 ABG pH (7.350-7.450) pH Units ABG pO2 (80.0-90.0) mm Hg ABG HCO3 (20.0-26.0) mmol/L ABG Base Excess (-2.0-3.0) mmol/L ABG Hemoglobin (12.0-16.0) gm/dl Potassium (3.6-5.0) mmol/L Carbon Dioxide 34 H (22-30) mmol/L Creatinine 0.5 L (0.6-1.2) mg/dL Glucose 204 H (65-100) mg/dL POC Glucose 283 H (70-105) mg/dL Total Bilirubin 2.60 H (0.1-1.2) mg/dL AST 82 H (5-40) units/L ALT 152 H (7-56) units/L Total Protein 5.7 L (6.3-8.2) g/dL Albumin 3.0 L (3.9-5) g/dL
[2020-03-14] MEDS ORDERED: VANCOMYCIN PHARMACY TO DOSE IV SCH (13:00)
[2020-03-14] MEDS ORDERED: VANCOMYCIN 2,000 MG in SODIUM CHLORIDE 0.9% 500 ML 500 ML IV ONE (14:00)
--- NOTE | 2020-03-14 17:15 | Progress Note ---
Assessment and Plan Cardiopulmoanry arrest with ROSC Acute hypoxemic respiratory failure on MVS COVID Extreme obesity Pulmonary HTN Obesity hypoventilation syndrome --Monitor hemodynamics closely -VAP bundle addressed, Aspiration precautions HOB >40 -Lung protective strategies, ARDS net protocol -CXR, ABG in am and as clinically indicated -Contact and airborne isolation per facility protocols for COVID -Varela catheter in this critically ill patient with acute renal failure. Re- address need for ongoing Varela in the next 24 hours -Avoid nephrotoxins, adjust all medications for CrCl and GFR -Daily assessment of readiness to wean; SAT and SBT in am - Bronchodilators with pulmonary hygiene per RT -Maintenance of sleep-wake cycle, avoid delirium -Enteric nutritional support - Accuchecks with glycemic control per SSI for target blood glucose of 140-180 mg/dL while critically ill; avoid hypoglycemia -Fentanyl and Propofol, titrate to RASS of -1 to -2 -Empiric antibiotics for HAP- Vanc and Cefepime, await further antibiotic management per ID -Tracheal aspirate obtained post intubation, follow cultures - VTE prophylaxis -Enoxaparin - Stress ulcer prophylaxis -Famotidine - Avoid delirium; Avoid benzodiazepines -Mobility, off loading per facility protocol to prevent pressure ulcers -PT/OT, range of motion exercises -Get echocardiogram to evaluate LVEF and for pulmonary HTN-pending -continue other care per attending / other consultants CONDITION: CRITICAL PROGNOSIS: GUARDED CODE STATUS: FULL CODE The high probability of a clinically significant, sudden or life-threatening deterioration of the respiratory, cardiovascular, system(s) required my full and direct attention, intervention and personal management. The aggregate critical care time was [35] minutes without overlap. Time includes spent on; [x] Data Review and interpretation [x] Patient assessment and monitoring of vital signs [x] Documentation [x] Medication orders and management She was evaluated in the context of the global COVID-19 pandemic, which necessitated consideration that the patient might be at risk for infection with the virus that causes COVID-19. Institutional protocols and algorithms that pertain to the evaluation of patients at risk for COVID-19 are in a state of rapid change based on information released by regulatory bodies including the CDC and federal and state organizations. These policies and algorithms were followed during the patient's care in the ICU. Please note that these policies, procedures and recommendations changed on a rapid basis. Subjective Date of service: 03/14/20 Interval history: Follow up for: Cardiopulmonary arrest with ROSC;Acute hypoxemic respiratory failure on MVS ; COVID;Extreme obesity ; Pulmonary HTN; Obesity hypoventilation syndrome Seen and examined. Vitals, labs, medications, chart and imaging reviewed. Self-extubated yesterday afternoon, was desaturating on NRBM requiring re- intubation. Remains critically ill on MVS, sedated with ongoing agitation. No reported fevers, no vomiting. Discussed with RT and RN Objective Vital Signs - 12hr 03/14/20 03/14/20 03/14/20 05:15 05:30 05:45 Temperature Pulse Rate 73 73 74 Pulse Rate [ From Monitor] Respiratory 28 H 21 28 H Rate Blood Pressure 150/87 147/89 151/90 O2 Sat by Pulse 100 100 100 Oximetry 03/14/20 03/14/20 03/14/20 06:00 06:08 06:15 Temperature Pulse Rate 74 73 75 Pulse Rate [ From Monitor] Respiratory 25 H 28 H Rate Blood Pressure 159/98 159/98 154/86 O2 Sat by Pulse 100 100 100 Oximetry 03/14/20 03/14/20 03/14/20 06:30 06:45 07:00 Temperature Pulse Rate 73 73 74 Pulse Rate [ From Monitor] Respiratory 28 H 28 H 28 H Rate Blood Pressure 147/90 158/89 145/83 O2 Sat by Pulse 99 100 100 Oximetry 03/14/20 03/14/20 03/14/20 07:15 07:30 07:45 Temperature Pulse Rate 73 73 74 Pulse Rate [ From Monitor] Respiratory 28 H 28 H 26 H Rate Blood Pressure 149/86 147/85 148/87 O2 Sat by Pulse 99 99 98 Oximetry 03/14/20 03/14/20 03/14/20 08:00 08:15 08:30 Temperature 100.6 F H Pulse Rate 73 77 74 Pulse Rate [ 76 From Monitor] Respiratory 25 H 25 H 28 H Rate Blood Pressure 146/82 148/87 145/82 O2 Sat by Pulse 100 100 100 Oximetry 03/14/20 03/14/20 03/14/20 08:45 08:59 09:00 Temperature Pulse Rate 75 74 73 Pulse Rate [ From Monitor] Respiratory 28 H 28 H Rate Blood Pressure 147/82 150/87 150/87 O2 Sat by Pulse 100 100 100 Oximetry 03/14/20 03/14/20 03/14/20 09:15 09:30 09:35 Temperature Pulse Rate 73 74 75 Pulse Rate [ From Monitor] Respiratory 28 H 27 H Rate Blood Pressure 144/84 141/90 141/90 O2 Sat by Pulse 100 100 Oximetry 03/14/20 03/14/20 03/14/20 09:45 10:00 10:15 Temperature Pulse Rate 74 74 74 Pulse Rate [ From Monitor] Respiratory 24 28 H 27 H Rate Blood Pressure 141/80 141/80 96/43 O2 Sat by Pulse 100 99 96 Oximetry 03/14/20 03/14/20 03/14/20 10:30 10:45 11:00 Temperature Pulse Rate 74 75 75 Pulse Rate [ From Monitor] Respiratory 27 H 27 H 27 H Rate Blood Pressure 95/38 87/40 92/42 O2 Sat by Pulse 95 95 95 Oximetry 03/14/20 03/14/20 03/14/20 11:16 11:30 11:46 Temperature Pulse Rate 92 H 84 81 Pulse Rate [ From Monitor] Respiratory 24 22 28 H Rate Blood Pressure 107/61 93/56 107/49 O2 Sat by Pulse 95 85 92 Oximetry 03/14/20 03/14/20 03/14/20 12:00 12:15 12:30 Temperature 98.3 F Pulse Rate 72 71 71 Pulse Rate [ 72 From Monitor] Respiratory 28 H 28 H 28 H Rate Blood Pressure 107/48 113/50 117/56 O2 Sat by Pulse 95 96 98 Oximetry 03/14/20 03/14/20 03/14/20 12:45 13:00 13:15 Temperature Pulse Rate 77 73 69 Pulse Rate [ From Monitor] Respiratory 28 H 28 H 28 H Rate Blood Pressure 105/58 118/55 128/64 O2 Sat by Pulse 97 98 100 Oximetry 03/14/20 03/14/20 03/14/20 13:30 13:45 14:00 Temperature Pulse Rate 87 80 69 Pulse Rate [ From Monitor] Respiratory 24 27 H 28 H Rate Blood Pressure 122/62 115/76 126/64 O2 Sat by Pulse 94 95 99 Oximetry 03/14/20 03/14/20 03/14/20 14:15 14:30 14:45 Temperature Pulse Rate 67 67 67 Pulse Rate [ From Monitor] Respiratory 28 H 28 H 28 H Rate Blood Pressure 129/67 132/72 136/73 O2 Sat by Pulse 99 100 100 Oximetry 03/14/20 03/14/20 03/14/20 15:00 15:15 15:30 Temperature Pulse Rate 68 65 64 Pulse Rate [ From Monitor] Respiratory 28 H 28 H 26 H Rate Blood Pressure 128/68 126/75 136/76 O2 Sat by Pulse 100 100 100 Oximetry 03/14/20 03/14/20 03/14/20 15:45 15:47 15:54 Temperature 100.2 F H Pulse Rate 66 65 Pulse Rate [ From Monitor] Respiratory 28 H Rate Blood Pressure 143/79 O2 Sat by Pulse 100 Oximetry 03/14/20 16:22 Temperature Pulse Rate 63 Pulse Rate [ From Monitor] Respiratory Rate Blood Pressure 147/77 O2 Sat by Pulse 100 Oximetry Constitutional: appears uncomfortable Eyes: non-icteric ENT: oropharynx moist, other (orally intuabted, ETT 7.5 at 22cm ) Neck: supple, no lymphadenopathy, other (large neck circumference) Effort: mildly labored Ascultation: Bilateral: diminished breath sounds, rhonchi Cardiovascular: regular rate and rhythm, other (S1,S2) Gastrointestinal: normoactive bowel sounds, soft, non-distended, other (obese) Integumentary: rash Extremities: pulses normal, cool, edema Neurologic: non-focal exam (moves all extremities, holding onto the rails), unable to assess Psychiatric: other (unable to assess) CBC and BMP: 03/14/20 09:17 03/14/20 09:17 ABG, PT/INR, D-dimer: ABG ABG pH 7.544 pH Units (7.350-7.450) H 03/14/20 06:15 ABG pCO2 44.2 mm Hg 03/14/20 06:15 ABG pO2 92.8 mm Hg (80.0-90.0) H 03/14/20 06:15 ABG O2 Saturation 97.6 % (95.0-99.0) 03/14/20 06:15 PT/INR, D-dimer PT 13.7 Sec. (12.2-14.9) 03/09/20 08:27 INR 1.06 (0.87-1.13) 03/09/20 08:27 D-Dimer 1042.81 ng/mlDDU (0-234) H 03/09/20 08:27 Abnormal lab findings: Abnormal Labs 03/09/20 03/09/20 03/09/20 08:27 08:27 08:27 WBC 15.8 H RBC 5.43 H MCH 24 L MCHC RDW 19.3 H Lymph % (Auto) [place] % (Auto) 8.2 H [place] # (Auto) 1.3 H Seg Neutrophils % 70.4 H Seg Neutrophils # 11.1 H D-Dimer ABG pH ABG pO2 ABG HCO3 ABG Base Excess ABG Hemoglobin Oxyhemoglobin Potassium Chloride 97.1 L Carbon Dioxide BUN 29 H Creatinine Glucose 178 H POC Glucose Hemoglobin A1c Lactic Acid 3.70 H* Total Bilirubin AST ALT Lactate Dehydrogenase 369 H C-Reactive Protein 3.00 H NT-Pro-B Natriuret Pep Total Protein Albumin Coronavirus (PCR) 03/09/20 03/09/20 03/09/20 08:27 08:27 08:27 WBC RBC MCH MCHC RDW Lymph % (Auto) [place] % (Auto) [place] # (Auto) Seg Neutrophils % Seg Neutrophils # D-Dimer 1042.81 H ABG pH ABG pO2 ABG HCO3 ABG Base Excess ABG Hemoglobin Oxyhemoglobin Potassium Chloride Carbon Dioxide BUN Creatinine Glucose POC Glucose Hemoglobin A1c 8.0 H Lactic Acid Total Bilirubin AST ALT Lactate Dehydrogenase C-Reactive Protein NT-Pro-B Natriuret Pep 2914 H Total Protein Albumin Coronavirus (PCR) 03/09/20 03/09/20 03/10/20 08:43 23:04 05:23 WBC RBC MCH MCHC RDW Lymph % (Auto) [place] % (Auto) [place] # (Auto) Seg Neutrophils % Seg Neutrophils # D-Dimer ABG pH ABG pO2 ABG HCO3 ABG Base Excess ABG Hemoglobin Oxyhemoglobin Potassium Chloride Carbon Dioxide BUN Creatinine Glucose POC Glucose 361 H Hemoglobin A1c Lactic Acid 6.80 H* Total Bilirubin AST ALT Lactate Dehydrogenase C-Reactive Protein NT-Pro-B Natriuret Pep Total Protein Albumin Coronavirus (PCR) Positive A 03/10/20 03/10/20 03/10/20 08:19 10:49 17:11 WBC RBC MCH MCHC RDW Lymph % (Auto) [place] % (Auto) [place] # (Auto) Seg Neutrophils % Seg Neutrophils # D-Dimer ABG pH ABG pO2 ABG HCO3 ABG Base Excess ABG Hemoglobin Oxyhemoglobin Potassium Chloride Carbon Dioxide BUN Creatinine Glucose POC Glucose 371 H 423 H 373 H Hemoglobin A1c Lactic Acid Total Bilirubin AST ALT Lactate Dehydrogenase C-Reactive Protein NT-Pro-B Natriuret Pep Total Protein Albumin Coronavirus (PCR) 03/11/20 03/11/20 03/11/20 00:29 07:52 13:12 WBC RBC MCH MCHC RDW Lymph % (Auto) [place] % (Auto) [place] # (Auto) Seg Neutrophils % Seg Neutrophils # D-Dimer ABG pH ABG pO2 ABG HCO3 ABG Base Excess ABG Hemoglobin Oxyhemoglobin Potassium Chloride Carbon Dioxide BUN Creatinine Glucose POC Glucose 242 H 233 H 352 H Hemoglobin A1c Lactic Acid Total Bilirubin AST ALT Lactate Dehydrogenase C-Reactive Protein NT-Pro-B Natriuret Pep Total Protein Albumin Coronavirus (PCR) 03/11/20 03/11/20 03/12/20 15:24 22:54 08:22 WBC RBC MCH MCHC RDW Lymph % (Auto) [place] % (Auto) [place] # (Auto) Seg Neutrophils % Seg Neutrophils # D-Dimer ABG pH ABG pO2 ABG HCO3 ABG Base Excess ABG Hemoglobin Oxyhemoglobin Potassium Chloride Carbon Dioxide BUN Creatinine Glucose POC Glucose 386 H 418 H 431 H Hemoglobin A1c Lactic Acid Total Bilirubin AST ALT Lactate Dehydrogenase C-Reactive Protein NT-Pro-B Natriuret Pep Total Protein Albumin Coronavirus (PCR) 03/12/20 03/12/20 03/12/20 11:34 16:53 22:20 WBC RBC MCH MCHC RDW Lymph % (Auto) [place] % (Auto) [place] # (Auto) Seg Neutrophils % Seg Neutrophils # D-Dimer ABG pH ABG pO2 ABG HCO3 ABG Base Excess ABG Hemoglobin Oxyhemoglobin Potassium Chloride Carbon Dioxide BUN Creatinine Glucose POC Glucose 310 H 358 H 295 H Hemoglobin A1c Lactic Acid Total Bilirubin AST ALT Lactate Dehydrogenase C-Reactive Protein NT-Pro-B Natriuret Pep Total Protein Albumin Coronavirus (PCR) 03/13/20 03/13/20 03/13/20 05:48 09:15 12:09 WBC 18.3 H RBC MCH 24 L MCHC 29 L RDW 18.9 H Lymph % (Auto) 7.8 L [place] % (Auto) 9.7 H [place] # (Auto) 1.8 H Seg Neutrophils % 82.0 H Seg Neutrophils # 15.0 H D-Dimer ABG pH 7.327 L ABG pO2 73.0 L ABG HCO3 39.3 H ABG Base Excess 10.8 H ABG Hemoglobin 11.2 L Oxyhemoglobin 93.4 L Potassium Chloride Carbon Dioxide BUN Creatinine Glucose POC Glucose 216 H Hemoglobin A1c Lactic Acid Total Bilirubin AST ALT Lactate Dehydrogenase C-Reactive Protein NT-Pro-B Natriuret Pep Total Protein Albumin Coronavirus (PCR) 03/13/20 03/13/20 03/13/20 12:09 12:11 17:23 WBC RBC MCH MCHC RDW Lymph % (Auto) [place] % (Auto) [place] # (Auto) Seg Neutrophils % Seg Neutrophils # D-Dimer ABG pH ABG pO2 ABG HCO3 ABG Base Excess ABG Hemoglobin Oxyhemoglobin Potassium 5.1 H Chloride Carbon Dioxide 37 H D BUN Creatinine Glucose 154 H POC Glucose 148 H 217 H Hemoglobin A1c Lactic Acid Total Bilirubin AST 47 H ALT 128 H Lactate Dehydrogenase C-Reactive Protein NT-Pro-B Natriuret Pep Total Protein 5.9 L Albumin 3.0 L Coronavirus (PCR) 03/14/20 03/14/20 03/14/20 06:15 06:55 09:17 WBC 14.9 H RBC MCH 25 L MCHC RDW 19.1 H Lymph % (Auto) 9.5 L [place] % (Auto) [place] # (Auto) 0.9 H Seg Neutrophils % 83.8 H Seg Neutrophils # 12.5 H D-Dimer ABG pH 7.544 H ABG pO2 92.8 H ABG HCO3 37.3 H ABG Base Excess 13.5 H ABG Hemoglobin 10.5 L Oxyhemoglobin Potassium Chloride Carbon Dioxide BUN Creatinine Glucose POC Glucose 182 H Hemoglobin A1c Lactic Acid Total Bilirubin AST ALT Lactate Dehydrogenase C-Reactive Protein NT-Pro-B Natriuret Pep Total Protein Albumin Coronavirus (PCR) 03/14/20 03/14/20 09:17 11:43 WBC RBC MCH MCHC RDW Lymph % (Auto) [place] % (Auto) [place] # (Auto) Seg Neutrophils % Seg Neutrophils # D-Dimer ABG pH ABG pO2 ABG HCO3 ABG Base Excess ABG Hemoglobin Oxyhemoglobin Potassium Chloride Carbon Dioxide 34 H BUN Creatinine 0.5 L Glucose 204 H POC Glucose 283 H Hemoglobin A1c Lactic Acid Total Bilirubin 2.60 H AST 82 H ALT 152 H Lactate Dehydrogenase C-Reactive Protein NT-Pro-B Natriuret Pep Total Protein 5.7 L Albumin 3.0 L Coronavirus (PCR) Chest x-ray: image reviewed Allied health notes reviewed: RT
--- NOTE | 2020-03-14 20:48 | Progress Note ---
Assessment and Plan - Patient Problems (1) Acute respiratory failure due to COVID-19 Current Visit: Yes Status: Acute Plan to address problem: Supplemental oxygen, pulse oximetry, nebulizer therapy via MDI spacer, ambulate 3 times daily and as needed, pulmonary toilet, prone positioning while in bed. Patient high flow submental oxygen has been weaned off and patient placed on supplemental oxygen via nasal cannula. We will continue to wean as tolerated. Discharge planning when patient is able to maintain pulse oximetry on 4 L/min or less. The high probability of a clinically significant, sudden or life threatening deterioration of the [pulmonary, cardiac, renal, neuro] system(s) required my full and direct attention, intervention and personal management. The aggregate critical care time was [90] minutes. This time is in addition to time spent performing reported procedures but includes the following: [x] Data Review and interpretation [x] Patient assessment and monitoring of vital signs [x] Documentation [x] Medication orders and management (2) Obesity hypoventilation syndrome Current Visit: Yes Status: Acute Plan to address problem: Pulse oximetry, nebulizer therapy, supplemental oxygen, outpatient pulmonary follow-up for sleep study, balanced diet, increase physical activity at discharge (3) Coronavirus infection Current Visit: Yes Status: Acute Plan to address problem: Coronavirus protocol: Infectious disease service consulted, contact precautions, isolation precaution, steroid therapy, prone listening while in bed. (4) Hypertension Current Visit: Yes Status: Acute Qualifiers: Hypertension type: essential hypertension Qualified Code(s): I10 - Essential (primary) hypertension Plan to address problem: Monitor blood pressure every shift, continue medical management (5) Diabetes Current Visit: Yes Status: Acute Plan to address problem: Consistent carbohydrate diet, sliding scale insulin therapy, Accu-Chek, hypoglycemia protocol (6) Pneumonia Current Visit: Yes Status: Acute Qualifiers: Laterality: bilateral Plan to address problem: Pneumonia protocol: Supplemental oxygen, IV antibiotic therapy, pulse oximetry, blood culture. (7) Pulmonary hypertension Current Visit: Yes Status: Acute Plan to address problem: Supportive care, outpatient pulmonology follow-up for sleep study. And restratification for vasodilator therapy. (8) DVT prophylaxis Current Visit: Yes Status: Acute Plan to address problem: SCD to bilateral lower extremities while in bed, prophylactic anticoagulation. History Interval history: 29 YO Female HD #6 with acute hypoxemic respiratory failure secondary to coronavirus infection, obesity hypoventilation syndrome.. Patient intubated and on vent support at the time of my evaluation. Patient is critically ill. No significant improvement overnight overnight. No decompensation overnight. Hospitalist Physical - Constitutional Vitals: Temp Pulse Resp BP Pulse Ox 100.2 F H 61 28 H 140/81 98 03/14/20 15:47 03/14/20 19:35 03/14/20 19:30 03/14/20 19:35 03/14/20 19:35 General appearance: Present: severe distress, obese, other (Morbidly obese patient is screaming and shouting asking for staff) - EENT Eyes: Present: miosis ENT: hearing decreased - Neck Neck: Present: supple - Respiratory Respiratory effort: labored Respiratory: bilateral: diminished, rhonchi - Cardiovascular Rhythm: regular Heart Sounds: Present: S1 & S2 - Extremities Extremities: no ischemia Extremity abnormal: edema Peripheral Pulses: within normal limits - Abdominal General gastrointestinal: soft, non-tender, non-distended - Integumentary Integumentary: Present: clear, dry - Psychiatric Psychiatric: no appropriate mood/affect, no intact judgment & insight, no memory intact - Neurologic Neurologic: CNII-XII intact, moves all extremities, no gait normal HEART Score - HEART Score Troponin: Troponin T 0.017 ng/mL (0.00-0.029) 03/14/20 09:17 Results - Labs CBC & Chem 7: 03/14/20 09:17 03/14/20 09:17 Labs: Laboratory Last Values WBC 14.9 K/mm3 (4.5-11.0) H 03/14/20 09:17 RBC 4.17 M/mm3 (3.65-5.03) 03/14/20 09:17 Hgb 10.3 gm/dl (10.1-14.3) 03/14/20 09:17 Hct 33.3 % (30.3-42.9) 03/14/20 09:17 MCV 80 fl (79-97) 03/14/20 09:17 MCH 25 pg (28-32) L 03/14/20 09:17 MCHC 31 % (30-34) 03/14/20 09:17 RDW 19.1 % (13.2-15.2) H 03/14/20 09:17 Plt Count 222 K/mm3 (140-440) 03/14/20 09:17 Lymph % (Auto) 9.5 % (13.4-35.0) L 03/14/20 09:17 [place] % (Auto) 6.2 % (0.0-7.3) 03/14/20 09:17 Eos % (Auto) 0.1 % (0.0-4.3) 03/14/20 09:17 Baso % (Auto) 0.4 % (0.0-1.8) 03/14/20 09:17 Lymph # (Auto) 1.4 K/mm3 (1.2-5.4) 03/14/20 09:17 [place] # (Auto) 0.9 K/mm3 (0.0-0.8) H 03/14/20 09:17 Eos # (Auto) 0.0 K/mm3 (0.0-0.4) 03/14/20 09:17 Baso # (Auto) 0.1 K/mm3 (0.0-0.1) 03/14/20 09:17 Seg Neutrophils % 83.8 % (40.0-70.0) H 03/14/20 09:17 Seg Neutrophils # 12.5 K/mm3 (1.8-7.7) H 03/14/20 09:17 PT 13.7 Sec. (12.2-14.9) 03/09/20 08:27 INR 1.06 (0.87-1.13) 03/09/20 08:27 APTT 25.4 Sec. (24.2-36.6) 03/09/20 08:27 D-Dimer 1042.81 ng/mlDDU (0-234) H 03/09/20 08:27 ABG pH 7.544 pH Units (7.350-7.450) H 03/14/20 06:15 ABG pCO2 44.2 mm Hg 03/14/20 06:15 ABG pO2 92.8 mm Hg (80.0-90.0) H 03/14/20 06:15 ABG HCO3 37.3 mmol/L (20.0-26.0) H 03/14/20 06:15 ABG O2 Saturation 97.6 % (95.0-99.0) 03/14/20 06:15 ABG O2 Content 14.1 (0.0-44) 03/14/20 06:15 ABG Base Excess 13.5 mmol/L (-2.0-3.0) H 03/14/20 06:15 ABG Hemoglobin 10.5 gm/dl (12.0-16.0) L 03/14/20 06:15 ABG Carboxyhemoglobin 2.1 % (0.0-5.0) 03/14/20 06:15 ABG Methemoglobin 0.5 % (0.0-1.5) 03/14/20 06:15 Oxyhemoglobin 95.1 % (95.0-99.0) 03/14/20 06:15 FiO2 70 % 03/14/20 06:15 Sodium 138 mmol/L (137-145) 03/14/20 09:17 Potassium 4.7 mmol/L (3.6-5.0) 03/14/20 09:17 Chloride 98.2 mmol/L (98-107) 03/14/20 09:17 Carbon Dioxide 34 mmol/L (22-30) H 03/14/20 09:17 Anion Gap 11 mmol/L 03/14/20 09:17 BUN 15 mg/dL (7-17) 03/14/20 09:17 Creatinine 0.5 mg/dL (0.6-1.2) L 03/14/20 09:17 Estimated GFR > 60 ml/min 03/14/20 09:17 BUN/Creatinine Ratio 30 % 03/14/20 09:17 Glucose 204 mg/dL (65-100) H 03/14/20 09:17 POC Glucose 254 mg/dL (70-105) H 03/14/20 17:47 Hemoglobin A1c 8.0 % (4-6) H 03/09/20 08:27 Lactic Acid 6.80 mmol/L (0.7-2.0) H* 03/10/20 05:23 Calcium 9.0 mg/dL (8.4-10.2) 03/14/20 09:17 Ferritin 108.9 ng/mL (10.0-200.0) 03/09/20 08:27 Total Bilirubin 2.60 mg/dL (0.1-1.2) H 03/14/20 09:17 AST 82 units/L (5-40) H 03/14/20 09:17 ALT 152 units/L (7-56) H 03/14/20 09:17 Alkaline Phosphatase 91 units/L (35-129) 03/14/20 09:17 Lactate Dehydrogenase 369 units/L (91-180) H 03/09/20 08:27 Troponin T 0.017 ng/mL (0.00-0.029) 03/14/20 09:17 C-Reactive Protein 3.00 mg/dL (0.00-1.30) H 03/09/20 08:27 NT-Pro-B Natriuret Pep 2914 pg/mL (0-450) H 03/09/20 08:27 Total Protein 5.7 g/dL (6.3-8.2) L 03/14/20 09:17 Albumin 3.0 g/dL (3.9-5) L 03/14/20 09:17 Albumin/Globulin Ratio 1.1 % 03/14/20 09:17 Procalcitonin 0.28 ng/mL (<0.15) 03/09/20 08:27 HCG, Qual Negative (Negative) 03/13/20 12:09 Urine HCG, Qual Negative (Negative) 03/10/20 Unknown Coronavirus (PCR) Positive (Negative) A 03/09/20 08:43 Microbiology: Microbiology 03/13/20 Unknown Tracheal Aspirate Sputum Culture - Preliminary Staphylococcus Aureus 03/09/20 08:27 Peripheral/Venous Blood Culture - Final NO GROWTH AFTER 5 DAYS 03/09/20 08:27 Peripheral/Venous Blood Culture - Final NO GROWTH AFTER 5 DAYS - Diagnostic Impressions Diagnostic Impressions: Echocardiogram 03/10/20 11:41 Transthoracic Echocardiogram Indication: New CHF BP: 129/80 HR: 81 Conclusions *The right heart chambers are both moderate-severely dilated. There is at least moderate tricuspid regurgitation. There is moderately-severe pulmonary hypertension with PA systolic pressures of 64mmHg. Findings suggest chronic lung disease, but acute PE should be considered. *Left ventricular chamber size and systolic function are normal. *The estimated ejection fraction is 55-60%. *There is trace of mitral regurgitation. Findings Left Ventricle: The left ventricular chamber size is normal. There is no left ventricular hypertrophy. Global left ventricular systolic function is normal. The estimated ejection fraction is 55-60%. Left Atrium: The left atrial chamber size is normal. Right Ventricle: The right ventricle is moderately dilated. The right ventricular global systolic function is moderately reduced. Right Atrium: The right atrium is moderate to severely dilated. Aortic Valve: The aortic valve is trileaflet. The aortic valve leaflets are mildly thickened. There is no evidence of aortic regurgitation. There is no evidence of aortic stenosis. Mitral Valve: The mitral valve leaflets are mildly thickened. There is trace of mitral regurgitation. There is no evidence of mitral stenosis. Tricuspid Valve: The tricuspid valve leaflets are normal. There is moderate tricuspid regurgitation. The right ventricular systolic pressure is calculated at 64 mmHg. There is evidence of severe pulmonary hypertension. Pulmonic Valve: There is mild pulmonic regurgitation. Aorta: There is no dilatation of the ascending aorta. There is no dilatation of the aortic root. Venous: The inferior vena cava appears normal in size. Measurements Chambers 2D Name Value Normal Range IVSd (2D) 0.8 cm (0.6 - 1.1) LVPWd (2D) 0.87 cm (0.6 - 1.1) LVIDd (2D) 4.69 cm (3.7 - 5.6) LVIDs (2D) 3.64 cm (2 - 3.8) LV FS (2D) 22.38 % - EF Teichholz (2D) 45.1 % - Ao root diameter (2D) 2.17 cm (2 - 3.7) Volumes/Mass Name Value Normal Range LA ESV SP 4CH (A/L) 42.29 ml - LA ESV SP 2CH (A/L) 63.31 ml - LA ESV BP (A/L) 55.21 ml - LA ESV BP (A/L) index 23.49 ml/m2 - LA ESV SP 4CH (MOD) 39.24 ml - LA ESV SP 2CH (MOD) 62.57 ml - LA ESV BP (MOD) 52.02 ml - LA ESV BP (MOD) index 22.14 ml/m2 - Diastolic/Systolic Function Name Value Normal Range MV E-wave Vmax 1.13 m/sec - MV deceleration time 207.11 msec - MV A-wave Vmax 0.86 m/sec - MV E:A ratio 1.31 ratio - Aortic Valve Name Value Normal Range AV Vmax 1.91 m/sec - AV VTI 32.53 cm - AV peak gradient 14.61 mmHg - AV mean gradient 7.83 mmHg - LVOT diameter 1.78 cm - LVOT Vmax 1.67 m/sec - LVOT VTI 28.3 cm - LVOT peak gradient 11.17 mmHg - LVOT mean gradient 5.51 mmHg - SV LVOT 70.01 ml - JANUSZ (continuity Vmax) 2.16 cm2 - JANUSZ (continuity VTI) 2.15 cm2 - Tricuspid Valve Name Value Normal Range TR Vmax 3.59 m/sec - TR peak gradient 51.44 mmHg - RAP 8 mmHg - RVSP 64 mmHg - IVC diameter 2.38 cm (1.2 - 2.3) [place]/IV: Voiding Method Indwelling Catheter IV Catheter Type [Right Upper INT / Saline Lock arm] IV Catheter Type [Left Upper INT / Saline Lock arm] IV Catheter Type [Right INT / Saline Lock Forearm] IV Catheter Type [Right INT / Saline Lock Antecubital] IV Catheter Type [Right Hand] INT / Saline Lock IV Catheter Type [Left Hand] INT / Saline Lock Active Medications - Current Medications Current Medications: Generic Name Dose Route Start Last Admin Trade Name Freq PRN Reason Stop Dose Admin Acetaminophen 650 mg 03/13/20 16:54 03/14/20 09:36 Tylenol FEEDTUBE 650 mg Q6H PRN Administration Pain, Mild (1-3) Lipase/Protease/Amylase 1 each 03/14/20 08:36 Pancreazbety [place] 10,500 Unit FEEDTUBE PRN PRN For Clogged Feeding Tube Dexamethasone 6 mg 03/11/20 10:00 03/14/20 09:35 Decadron PO 03/18/20 10:01 6 mg DAILY KIM Administration Fentanyl 50 mcg 03/13/20 09:36 03/14/20 05:13 Sublimaze IV 50 mcg Q10MIN PRN Administration ANALGESIA Haloperidol Lactate 2 mg 03/09/20 15:39 03/12/20 22:55 Haldol IM 2 mg Q6H PRN Administration Agitation Heparin Sodium (Porcine) 5,000 unit 03/10/20 22:00 03/14/20 09:36 Heparin SUB-Q 5,000 unit Q12HR KIM Administration Hydralazine HCl 10 mg 03/09/20 10:49 Apresoline IV Q4HR PRN Hypertension Hydrophilic Ointment 1 applic 03/13/20 07:00 Vaseline Lip Therapy TP Q2HR PRN Dry Lips Cefepime HCl 2 gm in 100 mls @ 200 mls/hr 03/10/20 14:00 03/14/20 13:47 Cefepime/Ns 2 Gm/100 Ml IV 200 mls/hr Q8H KIM Administration Protocol Fentanyl Citrate 2,000 mcg in 100 mls @ 8.27 mls/hr 03/13/20 10:00 03/14/20 17:33 Fentanyl Drip Premix IV 4 mcg/kg/hr TITR KIM 33.08 mls/hr Administration Protocol 1 MCG/KG/HR Propofol 1,000 mg in 100 mls @ 4.962 mls/hr 03/14/20 09:00 03/14/20 17:32 Diprivan 10 Mg/Ml IV 15 mcg/kg/min TITR KIM 14.886 mls/hr Administration Protocol 5 MCG/KG/MIN Vancomycin HCl 2,000 mg/ 540 mls @ 360 mls/hr 03/14/20 22:00 Sodium Chloride IV Q8H ON LICENSE OF [facility] Insulin Glargine 10 units 03/12/20 00:30 03/13/20 23:12 Lantus SUB-Q 10 units QHS ON LICENSE OF [facility] Administration Insulin Human Lispro 0 unit 03/13/20 18:00 03/14/20 18:21 Humalog SUB-Q 4 unit Q6H ON LICENSE OF [facility] Administration Protocol Losartan Potassium 100 mg 03/11/20 10:00 03/14/20 09:35 Cozaar PO 100 mg QDAY ON LICENSE OF [facility] Administration Multi-Ingred Cream/Lotion/Oil/Oint 1 applic 03/13/20 07:00 Artificial Tears Ophth Oint OU Q4HR PRN Dry Eye(s) Nifedipine 60 mg 03/11/20 10:00 03/14/20 09:35 Procardia Xl PO 60 mg QDAY ON LICENSE OF [facility] Administration Oxycodone/Acetaminophen 1 tab 03/09/20 10:40 Percocet 5/325 PO Q6H PRN Pain, Moderate (4-6) Pantoprazole Sodium 40 mg 03/10/20 07:30 03/14/20 07:58 Protonix PO 40 mg QDAC ON LICENSE OF [facility] Administration Risperidone 0.5 mg 03/10/20 22:00 03/14/20 09:36 Risperdal PO 0.5 mg BID KIM Administration Simple Syrup 15 ml 03/14/20 08:36 Simple Syrup FEEDTUBE PRN PRN Hypoglycemia Simple Syrup 30 ml 03/14/20 08:36 Simple Syrup FEEDTUBE PRN PRN Hypoglycemia Sodium Bicarbonate 325 mg 03/14/20 08:36 Sodium Bicarbonate FEEDTUBE PRN PRN For Clogged Feeding Tube Ziprasidone 20 mg 03/11/20 16:28 03/14/20 03:51 Geodon IM 20 mg Q4H PRN Administration Agitation Nutrition/Malnutrition Assess - Dietary Evaluation Nutrition/Malnutrition Findings: Nutrition Notes Start: 03/13/20 08:38 Freq: Status: Active Protocol: Document 03/14/20 08:29 TALAT (Rec: 03/14/20 08:35 [id number]) Nutrition Notes Need for Assessment generated from: MD Order Initial or Follow up Assessment Current Diagnosis Diabetes,Hypertension Other Pertinent Diagnosis COVID(+), pneumonia, acute respiratory failure, Prader Willi Syndrome Current Diet No diet Labs/Tests K 5.1 Pertinent Medications Reviewed Height 4 ft 10 in Weight 165.4 kg [place] Body Weight (kg) 40.90 BMI 76.1 Weight Status Morbidly Obese Subjective/Other Information MD order for TF. Pt remains on vent. Burn Absent Trauma Absent Current % PO Negligible Minimum of two criteria No physical signs of malnutrition #1 Nutrition Diagnosis Inadequate oral intake Diagnosis Progress(for reassessment Continues documentation) Is patient on ventilator? Yes Is Patient Ambulatory and/or Out of Bed No REE-([facility]-confined to bed) 2729.208 Kcal/Kg value to use for calculation 12 Approximate Energy Requirements Using 1985 kcal/Kg Calculation Used for Recommendations Kcal/kg Additional Notes Pro: 102g (up to 2.5g/kg IBW) Fluid: 1 ml/kcal Nutrition Intervention Change Diet Order: TF start Nutrition Support: [place] 1.8 at 45 ml/hr Flush 200 ml q4h Kcal 1,944 Protein (gm) 87 Fluid (mL) 785 Goal #1 Meet at least 75% of protein and energy needs via TF Anticipated Discharge Needs: Unable to determine at this time Follow-Up By: 03/17/20 Additional Comments FU for TF tolerance, renal labs
[2020-03-14] MEDS: INSULIN GLARGINE 100 UNITS/ML SUB-Q SCH (22:15)
[2020-03-14] MEDS: VANCOMYCIN 2,000 MG in SODIUM CHLORIDE 0.9% 500 ML 500 ML IV SCH (23:14)
[2020-03-15] MEDS: INSULIN LISPRO 100 UNIT/ML VIAL 3 mL SUB-Q SCH ×5 (00:24→23:37)
[2020-03-15] MEDS: fentaNYL DRIP Premix 2,000 MCG/100 ML BAG IV SCH ×7 (02:45→21:43)
--- NOTE | 2020-03-15 03:13 | XRay Report ---
CHEST - 1 VIEW INDICATION: follow up respiratory failure COMPARISON: 2 days prior FINDINGS: SUPPORT DEVICES: Stable support device positioning. HEART: Stable cardiomediastinal silhouette. LUNGS/PLEURA: Persistent moderate interstitial edema. ADDITIONAL FINDINGS: None. IMPRESSION: Unchanged exam. Signer Name: Rick Hollis MD Signed: 03/15/2020 3:09 AM Workstation Name: [id number]
[2020-03-15] MEDS: CEFEPIME/NS 2 GM/100 ML 2 GM/100 ML BAG IV SCH ×3 (05:53→21:49)
[2020-03-15] MEDS: VANCOMYCIN 2,000 MG in SODIUM CHLORIDE 0.9% 500 ML 500 ML IV SCH ×2 (06:35→23:41)
[2020-03-15] MEDS ORDERED: INSULIN GLARGINE 100 UNITS/ML SUB-Q SCH ×2 (10:00→22:00)
[2020-03-15] MEDS: amLODIPine 10 MG TAB PO SCH (10:31)
[2020-03-15] MEDS: risperiDONE 0.25 MG TAB PO SCH ×2 (10:31→21:51)
[2020-03-15] MEDS: LOSARTAN 50 MG TAB PO SCH (10:31)
[2020-03-15] MEDS: LANSOPRAZOLE 30 MG SOLUTAB FEEDTUBE SCH (10:32)
[2020-03-15] MEDS: DEXAMETHASONE 4 MG TAB PO SCH (10:32)
[2020-03-15] MEDS: HEPARIN 5,000 UNIT/1 ML VIAL SUB-Q SCH ×2 (10:33→21:47)
[2020-03-15] MEDS: SENNOSIDES/DOCUSATE SODIUM 8.6/50 MG TAB PO SCH ×2 (13:31→21:50)
[2020-03-15] MEDS: POLYETHYLENE GLYCOL 3350 17 GM POWDER PO SCH (13:31)
--- NOTE | 2020-03-15 15:36 | Progress Note ---
Assessment and Plan Cardiopulmoanry arrest with ROSC Acute hypoxemic respiratory failure on MVS COVID Extreme obesity Pulmonary HTN Obesity hypoventilation syndrome Bowel regimen Increase Lantus insulin for better glycemic control Monitor response to Geodon Wean supplemental oxygen for O2 sats >90% Gentle diuresis, give Furosmide 40mg IV x1 today, monitor output and follow renal function/electrolytes --Monitor hemodynamics closely -VAP bundle addressed, Aspiration precautions HOB >40 -Lung protective strategies, ARDS net protocol -CXR, ABG in am and as clinically indicated -Contact and airborne isolation per facility protocols for COVID -Varela catheter in this critically ill patient -Avoid nephrotoxins, adjust all medications for CrCl and GFR -Conservative fluid management -Daily assessment of readiness to wean; SAT and SBT in am - Bronchodilators with pulmonary hygiene per RT -Maintenance of sleep-wake cycle, avoid delirium -Enteric nutritional support - Accuchecks with glycemic control per SSI for target blood glucose of 140-180 mg/dL while critically ill; avoid hypoglycemia -Fentanyl and Propofol, titrate to RASS of -1 to -2 -Empiric antibiotics for HAP- Vanc and Cefepime, ID following -Tracheal aspirate obtained post intubation, follow cultures - VTE prophylaxis -Enoxaparin - Stress ulcer prophylaxis -Famotidine - Avoid delirium; Avoid benzodiazepines -Mobility, off loading per facility protocol to prevent pressure ulcers -PT/OT, range of motion exercises -continue other care per attending / other consultants CONDITION: CRITICAL PROGNOSIS: GUARDED CODE STATUS: FULL CODE The high probability of a clinically significant, sudden or life-threatening deterioration of the respiratory, cardiovascular, system(s) required my full and direct attention, intervention and personal management. The aggregate critical care time was [35] minutes without overlap. Time includes spent on; [x] Data Review and interpretation [x] Patient assessment and monitoring of vital signs [x] Documentation [x] Medication orders and management Subjective Date of service: 03/15/20 Interval history: Follow up for: Cardiopulmonary arrest with ROSC;Acute hypoxemic respiratory failure on MVS ; COVID;Extreme obesity ; Pulmonary HTN; Obesity hypoventilation syndrome Seen and examined. Vitals, labs, medications, chart and imaging reviewed. Remains critically ill on MVS, sedated with ongoing agitation. On Fentanyl and Propofol Geodon was restarted, sub-optimal glycemic control No bowel movements No reported fevers, no vomiting. Discussed with RT,RN, ubaldo management and clinical pharmacist on IDT rounds Objective Vital Signs - 12hr 03/15/20 03/15/20 03/15/20 03:35 03:45 04:00 Temperature 98.8 F Pulse Rate 60 58 L 58 L Pulse Rate [ From Monitor] Respiratory 28 H 28 H Rate Blood Pressure 143/75 134/73 134/74 O2 Sat by Pulse 99 99 99 Oximetry 03/15/20 03/15/20 03/15/20 04:06 04:15 04:30 Temperature Pulse Rate 61 63 59 L Pulse Rate [ From Monitor] Respiratory 28 H 28 H Rate Blood Pressure 137/86 147/82 O2 Sat by Pulse 98 99 Oximetry 03/15/20 03/15/20 03/15/20 04:45 05:01 05:15 Temperature Pulse Rate 69 69 78 Pulse Rate [ From Monitor] Respiratory 19 14 26 H Rate Blood Pressure 140/92 94/70 O2 Sat by Pulse 97 91 98 Oximetry 03/15/20 03/15/20 03/15/20 05:31 05:45 06:00 Temperature Pulse Rate 57 L 58 L 68 Pulse Rate [ From Monitor] Respiratory 29 H 28 H 15 Rate Blood Pressure 120/75 139/82 146/85 O2 Sat by Pulse 99 100 100 Oximetry 03/15/20 03/15/20 03/15/20 06:15 06:30 06:45 Temperature Pulse Rate 62 60 63 Pulse Rate [ From Monitor] Respiratory 28 H 10 L 28 H Rate Blood Pressure 134/94 132/76 123/69 O2 Sat by Pulse 99 99 99 Oximetry 03/15/20 03/15/20 03/15/20 07:00 07:15 07:21 Temperature Pulse Rate 58 L 62 69 Pulse Rate [ From Monitor] Respiratory 8 L 22 Rate Blood Pressure 138/78 130/84 130/84 O2 Sat by Pulse 99 100 100 Oximetry 03/15/20 03/15/20 03/15/20 07:30 07:45 08:00 Temperature 97.4 F L Pulse Rate 57 L 57 L 57 L Pulse Rate [ 57 L From Monitor] Respiratory 29 H 10 L 19 Rate Blood Pressure 128/79 133/77 147/85 O2 Sat by Pulse 100 100 100 Oximetry 03/15/20 03/15/20 03/15/20 08:15 08:30 08:45 Temperature Pulse Rate 61 58 L 68 Pulse Rate [ From Monitor] Respiratory 28 H 28 H 28 H Rate Blood Pressure 140/87 139/85 131/84 O2 Sat by Pulse 100 100 100 Oximetry 03/15/20 03/15/20 03/15/20 09:00 09:15 09:30 Temperature Pulse Rate 55 L 58 L 59 L Pulse Rate [ From Monitor] Respiratory 26 H 20 12 Rate Blood Pressure 133/78 138/78 147/85 O2 Sat by Pulse 100 100 99 Oximetry 03/15/20 03/15/20 03/15/20 09:45 10:00 10:15 Temperature Pulse Rate 60 58 L 58 L Pulse Rate [ From Monitor] Respiratory 18 28 H 25 H Rate Blood Pressure 140/81 143/85 141/84 O2 Sat by Pulse 100 100 100 Oximetry 03/15/20 03/15/20 03/15/20 10:30 10:31 10:45 Temperature Pulse Rate 57 L 58 L 58 L Pulse Rate [ From Monitor] Respiratory 21 28 H Rate Blood Pressure 140/85 140/85 143/82 O2 Sat by Pulse 100 100 Oximetry 03/15/20 03/15/20 03/15/20 11:00 11:10 11:15 Temperature Pulse Rate 58 L 56 L 59 L Pulse Rate [ From Monitor] Respiratory 26 H 29 H Rate Blood Pressure 141/82 141/82 146/87 O2 Sat by Pulse 100 100 100 Oximetry 03/15/20 03/15/20 03/15/20 11:30 11:45 12:00 Temperature Pulse Rate 56 L 59 L 55 L Pulse Rate [ From Monitor] Respiratory 28 H 28 H 28 H Rate Blood Pressure 147/87 145/89 134/80 O2 Sat by Pulse 100 100 100 Oximetry 03/15/20 03/15/20 03/15/20 12:15 12:30 12:46 Temperature Pulse Rate 59 L 61 61 Pulse Rate [ From Monitor] Respiratory 28 H 27 H 24 Rate Blood Pressure 126/84 120/89 132/84 O2 Sat by Pulse 98 99 98 Oximetry 03/15/20 03/15/20 03/15/20 13:00 13:15 13:30 Temperature Pulse Rate 54 L 60 83 Pulse Rate [ From Monitor] Respiratory 29 H 27 H 28 H Rate Blood Pressure 143/89 139/90 153/80 O2 Sat by Pulse 100 100 97 Oximetry 03/15/20 03/15/20 03/15/20 13:45 14:00 14:15 Temperature Pulse Rate 55 L 54 L 54 L Pulse Rate [ From Monitor] Respiratory 28 H 28 H 28 H Rate Blood Pressure 143/79 133/75 142/80 O2 Sat by Pulse 99 100 100 Oximetry 03/15/20 03/15/20 03/15/20 14:30 14:45 15:00 Temperature Pulse Rate 54 L 67 63 Pulse Rate [ From Monitor] Respiratory 28 H 25 H 26 H Rate Blood Pressure 142/89 150/90 160/89 O2 Sat by Pulse 100 99 100 Oximetry 03/15/20 15:15 Temperature Pulse Rate 56 L Pulse Rate [ From Monitor] Respiratory 28 H Rate Blood Pressure 160/80 O2 Sat by Pulse 100 Oximetry Constitutional: appears uncomfortable Eyes: non-icteric ENT: oropharynx moist, other (orally intuabted, ETT 7.5 at 22cm ) Neck: supple, no lymphadenopathy, other (large neck circumference) Effort: mildly labored Ascultation: Bilateral: diminished breath sounds, rhonchi Cardiovascular: regular rate and rhythm, other (S1,S2) Gastrointestinal: normoactive bowel sounds, soft, non-distended, other (obese) Integumentary: rash Extremities: pulses normal, cool, edema Neurologic: non-focal exam (moves all extremities, holding onto the rails), unable to assess Psychiatric: other (unable to assess) CBC and BMP: 03/14/20 09:17 03/14/20 09:17 ABG, PT/INR, D-dimer: ABG ABG pH 7.536 (7.320-7.450) H 03/15/20 03:08 POC ABG pCO2 38.8 mmHg (32.0-48.0) 03/15/20 03:08 ABG pCO2 44.2 mm Hg 03/14/20 06:15 POC ABG pO2 89.3 mmHg (83-108) 03/15/20 03:08 ABG pO2 92.8 mm Hg (80.0-90.0) H 03/14/20 06:15 POC ABG HCO3 32.1 03/15/20 03:08 ABG O2 Saturation 97.6 % (95.0-99.0) 03/14/20 06:15 PT/INR, D-dimer PT 13.7 Sec. (12.2-14.9) 03/09/20 08:27 INR 1.06 (0.87-1.13) 03/09/20 08:27 D-Dimer 1042.81 ng/mlDDU (0-234) H 03/09/20 08:27 Abnormal lab findings: Abnormal Labs 03/09/20 03/09/20 03/09/20 08:27 08:27 08:27 WBC 15.8 H RBC 5.43 H MCH 24 L MCHC RDW 19.3 H Lymph % (Auto) Peach % (Auto) 8.2 H Peach # (Auto) 1.3 H Seg Neutrophils % 70.4 H Seg Neutrophils # 11.1 H D-Dimer ABG pH ABG pO2 ABG HCO3 ABG Base Excess ABG Hemoglobin ABG Sodium ABG Glucose Oxyhemoglobin Potassium Chloride 97.1 L Carbon Dioxide BUN 29 H Creatinine Glucose 178 H POC Glucose Hemoglobin A1c Lactic Acid 3.70 H* Total Bilirubin AST ALT Lactate Dehydrogenase 369 H C-Reactive Protein 3.00 H NT-Pro-B Natriuret Pep Total Protein Albumin Arterial Blood Glucose Arterial Blood Ionized Calcium Coronavirus (PCR) 03/09/20 03/09/20 03/09/20 08:27 08:27 08:27 WBC RBC MCH MCHC RDW Lymph % (Auto) Peach % (Auto) [place] # (Auto) Seg Neutrophils % Seg Neutrophils # D-Dimer 1042.81 H ABG pH ABG pO2 ABG HCO3 ABG Base Excess ABG Hemoglobin ABG Sodium ABG Glucose Oxyhemoglobin Potassium Chloride Carbon Dioxide BUN Creatinine Glucose POC Glucose Hemoglobin A1c 8.0 H Lactic Acid Total Bilirubin AST ALT Lactate Dehydrogenase C-Reactive Protein NT-Pro-B Natriuret Pep 2914 H Total Protein Albumin Arterial Blood Glucose Arterial Blood Ionized Calcium Coronavirus (PCR) 03/09/20 03/09/20 03/10/20 08:43 23:04 05:23 WBC RBC MCH MCHC RDW Lymph % (Auto) Peach % (Auto) [place] # (Auto) Seg Neutrophils % Seg Neutrophils # D-Dimer ABG pH ABG pO2 ABG HCO3 ABG Base Excess ABG Hemoglobin ABG Sodium ABG Glucose Oxyhemoglobin Potassium Chloride Carbon Dioxide BUN Creatinine Glucose POC Glucose 361 H Hemoglobin A1c Lactic Acid 6.80 H* Total Bilirubin AST ALT Lactate Dehydrogenase C-Reactive Protein NT-Pro-B Natriuret Pep Total Protein Albumin Arterial Blood Glucose Arterial Blood Ionized Calcium Coronavirus (PCR) Positive A 03/10/20 03/10/20 03/10/20 08:19 10:49 17:11 WBC RBC MCH MCHC RDW Lymph % (Auto) Peach % (Auto) [place] # (Auto) Seg Neutrophils % Seg Neutrophils # D-Dimer ABG pH ABG pO2 ABG HCO3 ABG Base Excess ABG Hemoglobin ABG Sodium ABG Glucose Oxyhemoglobin Potassium Chloride Carbon Dioxide BUN Creatinine Glucose POC Glucose 371 H 423 H 373 H Hemoglobin A1c Lactic Acid Total Bilirubin AST ALT Lactate Dehydrogenase C-Reactive Protein NT-Pro-B Natriuret Pep Total Protein Albumin Arterial Blood Glucose Arterial Blood Ionized Calcium Coronavirus (PCR) 03/11/20 03/11/20 03/11/20 00:29 07:52 13:12 WBC RBC MCH MCHC RDW Lymph % (Auto) Peach % (Auto) [place] # (Auto) Seg Neutrophils % Seg Neutrophils # D-Dimer ABG pH ABG pO2 ABG HCO3 ABG Base Excess ABG Hemoglobin ABG Sodium ABG Glucose Oxyhemoglobin Potassium Chloride Carbon Dioxide BUN Creatinine Glucose POC Glucose 242 H 233 H 352 H Hemoglobin A1c Lactic Acid Total Bilirubin AST ALT Lactate Dehydrogenase C-Reactive Protein NT-Pro-B Natriuret Pep Total Protein Albumin Arterial Blood Glucose Arterial Blood Ionized Calcium Coronavirus (PCR) 03/11/20 03/11/20 03/12/20 15:24 22:54 08:22 WBC RBC MCH MCHC RDW Lymph % (Auto) Peach % (Auto) [place] # (Auto) Seg Neutrophils % Seg Neutrophils # D-Dimer ABG pH ABG pO2 ABG HCO3 ABG Base Excess ABG Hemoglobin ABG Sodium ABG Glucose Oxyhemoglobin Potassium Chloride Carbon Dioxide BUN Creatinine Glucose POC Glucose 386 H 418 H 431 H Hemoglobin A1c Lactic Acid Total Bilirubin AST ALT Lactate Dehydrogenase C-Reactive Protein NT-Pro-B Natriuret Pep Total Protein Albumin Arterial Blood Glucose Arterial Blood Ionized Calcium Coronavirus (PCR) 03/12/20 03/12/20 03/12/20 11:34 16:53 22:20 WBC RBC MCH MCHC RDW Lymph % (Auto) Peach % (Auto) [place] # (Auto) Seg Neutrophils % Seg Neutrophils # D-Dimer ABG pH ABG pO2 ABG HCO3 ABG Base Excess ABG Hemoglobin ABG Sodium ABG Glucose Oxyhemoglobin Potassium Chloride Carbon Dioxide BUN Creatinine Glucose POC Glucose 310 H 358 H 295 H Hemoglobin A1c Lactic Acid Total Bilirubin AST ALT Lactate Dehydrogenase C-Reactive Protein NT-Pro-B Natriuret Pep Total Protein Albumin Arterial Blood Glucose Arterial Blood Ionized Calcium Coronavirus (PCR) 03/13/20 03/13/20 03/13/20 05:48 09:15 12:09 WBC 18.3 H RBC MCH 24 L MCHC 29 L RDW 18.9 H Lymph % (Auto) 7.8 L Peach % (Auto) 9.7 H [place] # (Auto) 1.8 H Seg Neutrophils % 82.0 H Seg Neutrophils # 15.0 H D-Dimer ABG pH 7.327 L ABG pO2 73.0 L ABG HCO3 39.3 H ABG Base Excess 10.8 H ABG Hemoglobin 11.2 L ABG Sodium ABG Glucose Oxyhemoglobin 93.4 L Potassium Chloride Carbon Dioxide BUN Creatinine Glucose POC Glucose 216 H Hemoglobin A1c Lactic Acid Total Bilirubin AST ALT Lactate Dehydrogenase C-Reactive Protein NT-Pro-B Natriuret Pep Total Protein Albumin Arterial Blood Glucose Arterial Blood Ionized Calcium Coronavirus (PCR) 03/13/20 03/13/20 03/13/20 12:09 12:11 17:23 WBC RBC MCH MCHC RDW Lymph % (Auto) Peach % (Auto) [place] # (Auto) Seg Neutrophils % Seg Neutrophils # D-Dimer ABG pH ABG pO2 ABG HCO3 ABG Base Excess ABG Hemoglobin ABG Sodium ABG Glucose Oxyhemoglobin Potassium 5.1 H Chloride Carbon Dioxide 37 H D BUN Creatinine Glucose 154 H POC Glucose 148 H 217 H Hemoglobin A1c Lactic Acid Total Bilirubin AST 47 H ALT 128 H Lactate Dehydrogenase C-Reactive Protein NT-Pro-B Natriuret Pep Total Protein 5.9 L Albumin 3.0 L Arterial Blood Glucose Arterial Blood Ionized Calcium Coronavirus (PCR) 03/14/20 03/14/20 03/14/20 06:15 06:55 09:17 WBC 14.9 H RBC MCH 25 L MCHC RDW 19.1 H Lymph % (Auto) 9.5 L [place] % (Auto) [place] # (Auto) 0.9 H Seg Neutrophils % 83.8 H Seg Neutrophils # 12.5 H D-Dimer ABG pH 7.544 H ABG pO2 92.8 H ABG HCO3 37.3 H ABG Base Excess 13.5 H ABG Hemoglobin 10.5 L ABG Sodium ABG Glucose Oxyhemoglobin Potassium Chloride Carbon Dioxide BUN Creatinine Glucose POC Glucose 182 H Hemoglobin A1c Lactic Acid Total Bilirubin AST ALT Lactate Dehydrogenase C-Reactive Protein NT-Pro-B Natriuret Pep Total Protein Albumin Arterial Blood Glucose Arterial Blood Ionized Calcium Coronavirus (PCR) 03/14/20 03/14/20 03/14/20 09:17 11:43 17:47 WBC RBC MCH MCHC RDW Lymph % (Auto) Peach % (Auto) [place] # (Auto) Seg Neutrophils % Seg Neutrophils # D-Dimer ABG pH ABG pO2 ABG HCO3 ABG Base Excess ABG Hemoglobin ABG Sodium ABG Glucose Oxyhemoglobin Potassium Chloride Carbon Dioxide 34 H BUN Creatinine 0.5 L Glucose 204 H POC Glucose 283 H 254 H Hemoglobin A1c Lactic Acid Total Bilirubin 2.60 H AST 82 H ALT 152 H Lactate Dehydrogenase C-Reactive Protein NT-Pro-B Natriuret Pep Total Protein 5.7 L Albumin 3.0 L Arterial Blood Glucose Arterial Blood Ionized Calcium Coronavirus (PCR) 03/14/20 03/15/20 03/15/20 23:59 03:08 05:52 WBC RBC MCH MCHC RDW Lymph % (Auto) [place]ach % (Auto) [place] # (Auto) Seg Neutrophils % Seg Neutrophils # D-Dimer ABG pH 7.536 H ABG pO2 ABG HCO3 ABG Base Excess ABG Hemoglobin 10.7 L ABG Sodium 135.2 L ABG Glucose 317 H Oxyhemoglobin Potassium Chloride Carbon Dioxide BUN Creatinine Glucose POC Glucose 293 H 293 H Hemoglobin A1c Lactic Acid Total Bilirubin AST ALT Lactate Dehydrogenase C-Reactive Protein NT-Pro-B Natriuret Pep Total Protein Albumin Arterial Blood Glucose 317 H Arterial Blood Ionized Calcium 4.5 L Coronavirus (PCR) 03/15/20 13:29 WBC RBC MCH MCHC RDW Lymph % (Auto) [place]ach % (Auto) [place] # (Auto) Seg Neutrophils % Seg Neutrophils # D-Dimer ABG pH ABG pO2 ABG HCO3 ABG Base Excess ABG Hemoglobin ABG Sodium ABG Glucose Oxyhemoglobin Potassium Chloride Carbon Dioxide BUN Creatinine Glucose POC Glucose 299 H Hemoglobin A1c Lactic Acid Total Bilirubin AST ALT Lactate Dehydrogenase C-Reactive Protein NT-Pro-B Natriuret Pep Total Protein Albumin Arterial Blood Glucose Arterial Blood Ionized Calcium Coronavirus (PCR) Allied health notes reviewed: RT
[2020-03-15] MEDS ORDERED: LISINOPRIL 5 MG TAB PO ONE (16:00)
[2020-03-15] MEDS ORDERED: FUROSEMIDE 40 MG/4 ML INJ IV ONE (16:37)
--- NOTE | 2020-03-15 17:20 | Progress Note ---
Assessment and Plan Cultures: Blood culture 03/09/2020 pending Urine culture 03/09/2020 pending Tracheal aspirate culture 03/13/2020 staph aureus A/P: 29-year-old female past medical history morbid obesity, obesity hypoventilation syndrome, diabetes admitted with shortness of breath #COVID-19 pneumonia: Diagnosed over 2 weeks ago, as such not a candidate for remdesivir. Given that her ferritin is normal, less likely to be in cytokine storm. Procalcitonin slightly elevated at 0.3 #Acute hypoxemic respiratory failure: Likely secondary to COVID-19 infection versus CHF versus bacterial pneumonia. Currently on intubated #Diabetes: tight glycemic control for best outcomes. #Morbid obesity: Associated with worse outcomes, recommend diet modifications Recs: -Continue cefepime 2 g every 8 hours given elevated white count, lactic acid and procalcitonin -Continue vancomycin pending staph aureus JEOVANY -Follow white count. -Possible de-escalation following finalization of tracheal aspirate culture. Thank you for the consult, we will continue to follow. Freida Koch MD [facility] ([facility] O: [phone] F: [phone] Subjective Date of service: 03/15/20 Interval history: Afebrile now, no acute changes. Sputum culture JEOVANY still pending remains mechanically ventilated. Imaging personally reviewed: Chest x-ray: Unchanged exam. Objective - Exam Narrative Exam: Physical exam deferred due to PPE conservation strategy. Please refer to primary team's note. - Constitutional Vitals: Vital Signs Temp Pulse Resp BP Pulse Ox 97.4 F L 96 H 28 H 155/82 100 03/15/20 08:00 03/15/20 17:13 03/15/20 15:15 03/15/20 17:13 03/15/20 16:06 Temperature -Last 24 Hours Temperature 97.4 F Temperature 98.8 F Temperature 98.7 F Temperature 98.9 F - Labs CBC & Chem 7: 03/14/20 09:17 03/14/20 09:17 Labs: Abnormal lab results 03/14/20 03/14/20 03/15/20 Range/Units 17:47 23:59 03:08 ABG pH 7.536 H (7.320-7.450) ABG Hemoglobin 10.7 L (12.0-17.5) ABG Sodium 135.2 L (136.0-145.0) mmol/L ABG Glucose 317 H (65-95) mg/dL POC Glucose 254 H 293 H (70-105) mg/dL Arterial Blood Glucose 317 H (65-95) mg/dL Arterial Blood Ionized Calcium 4.5 L (4.6-5.3) mg/dL 03/15/20 03/15/20 Range/Units 05:52 13:29 ABG pH (7.320-7.450) ABG Hemoglobin (12.0-17.5) ABG Sodium (136.0-145.0) mmol/L ABG Glucose (65-95) mg/dL POC Glucose 293 H 299 H (70-105) mg/dL Arterial Blood Glucose (65-95) mg/dL Arterial Blood Ionized Calcium (4.6-5.3) mg/dL
--- NOTE | 2020-03-15 20:31 | Progress Note ---
Assessment and Plan - Patient Problems (1) Acute respiratory failure due to COVID-19 Current Visit: Yes Status: Acute Plan to address problem: Supplemental oxygen, pulse oximetry, nebulizer therapy via MDI spacer, ambulate 3 times daily and as needed, pulmonary toilet, prone positioning while in bed. Patient high flow submental oxygen has been weaned off and patient placed on supplemental oxygen via nasal cannula. We will continue to wean as tolerated. Discharge planning when patient is able to maintain pulse oximetry on 4 L/min or less. The high probability of a clinically significant, sudden or life threatening deterioration of the [pulmonary, cardiac, renal, neuro] system(s) required my full and direct attention, intervention and personal management. The aggregate critical care time was [90] minutes. This time is in addition to time spent performing reported procedures but includes the following: [x] Data Review and interpretation [x] Patient assessment and monitoring of vital signs [x] Documentation [x] Medication orders and management (2) Obesity hypoventilation syndrome Current Visit: Yes Status: Acute Plan to address problem: Pulse oximetry, nebulizer therapy, supplemental oxygen, outpatient pulmonary follow-up for sleep study, balanced diet, increase physical activity at discharge (3) Coronavirus infection Current Visit: Yes Status: Acute Plan to address problem: Coronavirus protocol: Infectious disease service consulted, contact precautions, isolation precaution, steroid therapy, prone listening while in bed. (4) Hypertension Current Visit: Yes Status: Acute Qualifiers: Hypertension type: essential hypertension Qualified Code(s): I10 - Essential (primary) hypertension Plan to address problem: Monitor blood pressure every shift, continue medical management (5) Diabetes Current Visit: Yes Status: Acute Plan to address problem: Consistent carbohydrate diet, sliding scale insulin therapy, Accu-Chek, hypoglycemia protocol (6) Pneumonia Current Visit: Yes Status: Acute Qualifiers: Laterality: bilateral Plan to address problem: Pneumonia protocol: Supplemental oxygen, IV antibiotic therapy, pulse oximetry, blood culture. (7) Pulmonary hypertension Current Visit: Yes Status: Acute Plan to address problem: Supportive care, outpatient pulmonology follow-up for sleep study. And restratification for vasodilator therapy. (8) DVT prophylaxis Current Visit: Yes Status: Acute Plan to address problem: SCD to bilateral lower extremities while in bed, prophylactic anticoagulation. History Interval history: 29 YO Female HD #7 with acute hypoxemic respiratory failure secondary to coronavirus infection, obesity hypoventilation syndrome. Patient remains intubated and on vent support at the time of my evaluation. Patient is critically ill. No significant improvement overnight overnight. No decomp ensation overnight. Continue current management. Hospitalist Physical - Constitutional Vitals: Temp Pulse Resp BP Pulse Ox 98.9 F 58 L 18 168/93 99 03/15/20 20:00 03/15/20 20:00 03/15/20 20:00 03/15/20 20:00 03/15/20 20:00 General appearance: Present: severe distress, obese, other (Morbidly obese patient is screaming and shouting asking for staff) - EENT Eyes: Present: miosis ENT: hearing decreased - Neck Neck: Present: supple - Respiratory Respiratory effort: labored Respiratory: bilateral: diminished, rhonchi - Cardiovascular Rhythm: regular Heart Sounds: Present: S1 & S2 - Extremities Extremities: no ischemia Peripheral Pulses: within normal limits - Abdominal General gastrointestinal: soft, non-tender, non-distended - Integumentary Integumentary: Present: clear, dry - Psychiatric Psychiatric: no appropriate mood/affect, no intact judgment & insight, no memory intact - Neurologic Neurologic: CNII-XII intact, no focal deficits, moves all extremities, no gait normal HEART Score - HEART Score Troponin: Troponin T 0.017 ng/mL (0.00-0.029) 03/14/20 09:17 Results - Labs CBC & Chem 7: 03/14/20 09:17 03/14/20 09:17 Labs: Laboratory Last Values WBC 14.9 K/mm3 (4.5-11.0) H 03/14/20 09:17 RBC 4.17 M/mm3 (3.65-5.03) 03/14/20 09:17 Hgb 10.3 gm/dl (10.1-14.3) 03/14/20 09:17 Hct 33.3 % (30.3-42.9) 03/14/20 09:17 MCV 80 fl (79-97) 03/14/20 09:17 MCH 25 pg (28-32) L 03/14/20 09:17 MCHC 31 % (30-34) 03/14/20 09:17 RDW 19.1 % (13.2-15.2) H 03/14/20 09:17 Plt Count 222 K/mm3 (140-440) 03/14/20 09:17 Lymph % (Auto) 9.5 % (13.4-35.0) L 03/14/20 09:17 Bee % (Auto) 6.2 % (0.0-7.3) 03/14/20 09:17 Eos % (Auto) 0.1 % (0.0-4.3) 03/14/20 09:17 Baso % (Auto) 0.4 % (0.0-1.8) 03/14/20 09:17 Lymph # (Auto) 1.4 K/mm3 (1.2-5.4) 03/14/20 09:17 Bee # (Auto) 0.9 K/mm3 (0.0-0.8) H 03/14/20 09:17 Eos # (Auto) 0.0 K/mm3 (0.0-0.4) 03/14/20 09:17 Baso # (Auto) 0.1 K/mm3 (0.0-0.1) 03/14/20 09:17 Seg Neutrophils % 83.8 % (40.0-70.0) H 03/14/20 09:17 Seg Neutrophils # 12.5 K/mm3 (1.8-7.7) H 03/14/20 09:17 PT 13.7 Sec. (12.2-14.9) 03/09/20 08:27 INR 1.06 (0.87-1.13) 03/09/20 08:27 APTT 25.4 Sec. (24.2-36.6) 03/09/20 08:27 D-Dimer 1042.81 ng/mlDDU (0-234) H 03/09/20 08:27 ABG pH 7.536 (7.320-7.450) H 03/15/20 03:08 POC ABG pCO2 38.8 mmHg (32.0-48.0) 03/15/20 03:08 ABG pCO2 44.2 mm Hg 03/14/20 06:15 POC ABG pO2 89.3 mmHg (83-108) 03/15/20 03:08 ABG pO2 92.8 mm Hg (80.0-90.0) H 03/14/20 06:15 POC ABG HCO3 32.1 03/15/20 03:08 ABG HCO3 37.3 mmol/L (20.0-26.0) H 03/14/20 06:15 ABG O2 Saturation 97.6 % (95.0-99.0) 03/14/20 06:15 ABG O2 Content 14.1 (0.0-44) 03/14/20 06:15 POC ABG Base Excess 8.9 03/15/20 03:08 ABG Base Excess 13.5 mmol/L (-2.0-3.0) H 03/14/20 06:15 ABG Hemoglobin 10.7 (12.0-17.5) L 03/15/20 03:08 ABG Carboxyhemoglobin 2.1 % (0.0-5.0) 03/14/20 06:15 ABG Methemoglobin 0.5 % (0.0-1.5) 03/14/20 06:15 ABG Sodium 135.2 mmol/L (136.0-145.0) L 03/15/20 03:08 ABG Potassium 4.2 mmol/L (3.40-4.50) 03/15/20 03:08 ABG Chloride 100.0 mmol/L (98-107) 03/15/20 03:08 ABG Glucose 317 mg/dL (65-95) H 03/15/20 03:08 Oxyhemoglobin 95.1 % (95.0-99.0) 03/14/20 06:15 FiO2 60 03/15/20 03:08 Sodium 138 mmol/L (137-145) 03/14/20 09:17 Potassium 4.7 mmol/L (3.6-5.0) 03/14/20 09:17 Chloride 98.2 mmol/L (98-107) 03/14/20 09:17 Carbon Dioxide 34 mmol/L (22-30) H 03/14/20 09:17 Anion Gap 11 mmol/L 03/14/20 09:17 BUN 15 mg/dL (7-17) 03/14/20 09:17 Creatinine 0.5 mg/dL (0.6-1.2) L 03/14/20 09:17 Estimated GFR > 60 ml/min 03/14/20 09:17 BUN/Creatinine Ratio 30 % 03/14/20 09:17 Glucose 204 mg/dL (65-100) H 03/14/20 09:17 POC Glucose 327 mg/dL (70-105) H 03/15/20 17:43 Hemoglobin A1c 8.0 % (4-6) H 03/09/20 08:27 Lactic Acid 6.80 mmol/L (0.7-2.0) H* 03/10/20 05:23 Calcium 9.0 mg/dL (8.4-10.2) 03/14/20 09:17 Ferritin 108.9 ng/mL (10.0-200.0) 03/09/20 08:27 Total Bilirubin 2.60 mg/dL (0.1-1.2) H 03/14/20 09:17 AST 82 units/L (5-40) H 03/14/20 09:17 ALT 152 units/L (7-56) H 03/14/20 09:17 Alkaline Phosphatase 91 units/L (35-129) 03/14/20 09:17 Lactate Dehydrogenase 369 units/L (91-180) H 03/09/20 08:27 Troponin T 0.017 ng/mL (0.00-0.029) 03/14/20 09:17 C-Reactive Protein 3.00 mg/dL (0.00-1.30) H 03/09/20 08:27 NT-Pro-B Natriuret Pep 2914 pg/mL (0-450) H 03/09/20 08:27 Total Protein 5.7 g/dL (6.3-8.2) L 03/14/20 09:17 Albumin 3.0 g/dL (3.9-5) L 03/14/20 09:17 Albumin/Globulin Ratio 1.1 % 03/14/20 09:17 Procalcitonin 0.28 ng/mL (<0.15) 03/09/20 08:27 HCG, Qual Negative (Negative) 03/13/20 12:09 Arterial Blood Glucose 317 mg/dL (65-95) H 03/15/20 03:08 Arterial Blood Ionized Calcium 4.5 mg/dL (4.6-5.3) L 03/15/20 03:08 Urine HCG, Qual Negative (Negative) 03/10/20 Unknown Coronavirus (PCR) Positive (Negative) A 03/09/20 08:43 Microbiology: Microbiology 03/13/20 Unknown Tracheal Aspirate Sputum Culture - Preliminary Staphylococcus Aureus - Diagnostic Impressions Diagnostic Impressions: Echocardiogram 03/10/20 11:41 Transthoracic Echocardiogram Indication: New CHF BP: 129/80 HR: 81 Conclusions *The right heart chambers are both moderate-severely dilated. There is at least moderate tricuspid regurgitation. There is moderately-severe pulmonary hypertension with PA systolic pressures of 64mmHg. Findings suggest chronic lung disease, but acute PE should be considered. *Left ventricular chamber size and systolic function are normal. *The estimated ejection fraction is 55-60%. *There is trace of mitral regurgitation. Findings Left Ventricle: The left ventricular chamber size is normal. There is no left ventricular hypertrophy. Global left ventricular systolic function is normal. The estimated ejection fraction is 55-60%. Left Atrium: The left atrial chamber size is normal. Right Ventricle: The right ventricle is moderately dilated. The right ventricular global systolic function is moderately reduced. Right Atrium: The right atrium is moderate to severely dilated. Aortic Valve: The aortic valve is trileaflet. The aortic valve leaflets are mildly thickened. There is no evidence of aortic regurgitation. There is no evidence of aortic stenosis. Mitral Valve: The mitral valve leaflets are mildly thickened. There is trace of mitral regurgitation. There is no evidence of mitral stenosis. Tricuspid Valve: The tricuspid valve leaflets are normal. There is moderate tricuspid regurgitation. The right ventricular systolic pressure is calculated at 64 mmHg. There is evidence of severe pulmonary hypertension. Pulmonic Valve: There is mild pulmonic regurgitation. Aorta: There is no dilatation of the ascending aorta. There is no dilatation of the aortic root. Venous: The inferior vena cava appears normal in size. Measurements Chambers 2D Name Value Normal Range IVSd (2D) 0.8 cm (0.6 - 1.1) LVPWd (2D) 0.87 cm (0.6 - 1.1) LVIDd (2D) 4.69 cm (3.7 - 5.6) LVIDs (2D) 3.64 cm (2 - 3.8) LV FS (2D) 22.38 % - EF Teichholz (2D) 45.1 % - Ao root diameter (2D) 2.17 cm (2 - 3.7) Volumes/Mass Name Value Normal Range LA ESV SP 4CH (A/L) 42.29 ml - LA ESV SP 2CH (A/L) 63.31 ml - LA ESV BP (A/L) 55.21 ml - LA ESV BP (A/L) index 23.49 ml/m2 - LA ESV SP 4CH (MOD) 39.24 ml - LA ESV SP 2CH (MOD) 62.57 ml - LA ESV BP (MOD) 52.02 ml - LA ESV BP (MOD) index 22.14 ml/m2 - Diastolic/Systolic Function Name Value Normal Range MV E-wave Vmax 1.13 m/sec - MV deceleration time 207.11 msec - MV A-wave Vmax 0.86 m/sec - MV E:A ratio 1.31 ratio - Aortic Valve Name Value Normal Range AV Vmax 1.91 m/sec - AV VTI 32.53 cm - AV peak gradient 14.61 mmHg - AV mean gradient 7.83 mmHg - LVOT diameter 1.78 cm - LVOT Vmax 1.67 m/sec - LVOT VTI 28.3 cm - LVOT peak gradient 11.17 mmHg - LVOT mean gradient 5.51 mmHg - SV LVOT 70.01 ml - JANUSZ (continuity Vmax) 2.16 cm2 - JANUSZ (continuity VTI) 2.15 cm2 - Tricuspid Valve Name Value Normal Range TR Vmax 3.59 m/sec - TR peak gradient 51.44 mmHg - RAP 8 mmHg - RVSP 64 mmHg - IVC diameter 2.38 cm (1.2 - 2.3) Varela/IV: Voiding Method Indwelling Catheter IV Catheter Type [Right Upper INT / Saline Lock arm] IV Catheter Type [Left Upper INT / Saline Lock arm] IV Catheter Type [Right INT / Saline Lock Forearm] IV Catheter Type [Right INT / Saline Lock Antecubital] IV Catheter Type [Right Hand] INT / Saline Lock IV Catheter Type [Left Hand] INT / Saline Lock Active Medications - Current Medications Current Medications: Generic Name Dose Route Start Last Admin Trade Name Freq PRN Reason Stop Dose Admin Acetaminophen 650 mg 03/13/20 16:54 03/14/20 09:36 Tylenol FEEDTUBE 650 mg Q6H PRN Administration Pain, Mild (1-3) Amlodipine Besylate 10 mg 03/15/20 10:00 03/15/20 10:31 Amlodipine PO 10 mg DAILY KIM Administration Lipase/Protease/Amylase 1 each 03/14/20 08:[address] 10,500 Unit FEEDTUBE PRN PRN For Clogged Feeding Tube Dexamethasone 6 mg 03/11/20 10:00 03/15/20 10:32 Decadron PO 03/18/20 10:01 6 mg DAILY KIM Administration Fentanyl 50 mcg 03/13/20 09:36 03/14/20 05:13 Sublimaze IV 50 mcg Q10MIN PRN Administration ANALGESIA Haloperidol Lactate 2 mg 03/09/20 15:39 03/12/20 22:55 Haldol IM 2 mg Q6H PRN Administration Agitation Heparin Sodium (Porcine) 5,000 unit 03/10/20 22:00 03/15/20 10:33 Heparin SUB-Q 5,000 unit Q12HR KIM Administration Hydralazine HCl 10 mg 03/09/20 10:49 Apresoline IV Q4HR PRN Hypertension Hydrophilic Ointment 1 applic 03/13/20 07:00 Vaseline Lip Therapy TP Q2HR PRN Dry Lips Cefepime HCl 2 gm in 100 mls @ 200 mls/hr 03/10/20 14:00 03/15/20 13:30 Cefepime/Ns 2 Gm/100 Ml IV 200 mls/hr Q8H KIM Administration Protocol Fentanyl Citrate 2,000 mcg in 100 mls @ 8.27 mls/hr 03/13/20 10:00 03/15/20 19:02 Fentanyl Drip Premix IV 4 mcg/kg/hr TITR KIM 33.08 mls/hr Titration Protocol 1 MCG/KG/HR Propofol 1,000 mg in 100 mls @ 4.962 mls/hr 03/14/20 09:00 03/15/20 19:02 Diprivan 10 Mg/Ml IV 20 mcg/kg/min TITR KIM 19.848 mls/hr Titration Protocol 5 MCG/KG/MIN Vancomycin HCl 2,000 mg/ 540 mls @ 360 mls/hr 03/15/20 22:00 Sodium Chloride IV Q12HR [facility] Insulin Glargine 20 units 03/15/20 22:00 Lantus SUB-Q QHS [facility] Insulin Human Lispro 0 unit 03/13/20 18:00 03/15/20 18:16 Humalog SUB-Q 8 unit Q6H KIM Administration Protocol Lansoprazole 30 mg 03/15/20 10:00 03/15/20 10:32 Prevacid Solutab FEEDTUBE 30 mg QDAY KIM Administration Losartan Potassium 100 mg 03/11/20 10:00 03/15/20 10:31 Cozaar PO 100 mg QDAY KIM Administration Multi-Ingred Cream/Lotion/Oil/Oint 1 applic 03/13/20 07:00 Artificial Tears Ophth Oint OU Q4HR PRN Dry Eye(s) Oxycodone/Acetaminophen 1 tab 03/09/20 10:40 Percocet 5/325 PO Q6H PRN Pain, Moderate (4-6) Polyethylene Glycol 17 gm 03/15/20 13:00 03/15/20 13:31 Miralax 3350 PO 17 gm QDAY KIM Administration Risperidone 0.5 mg 03/10/20 22:00 03/15/20 10:31 Risperdal PO 0.5 mg BID KIM Administration Senna/Docusate Sodium 2 tab 03/15/20 13:00 03/15/20 13:31 Senokot S PO 2 tab BID KIM Administration Simple Syrup 15 ml 03/14/20 08:36 Simple Syrup FEEDTUBE PRN PRN Hypoglycemia Simple Syrup 30 ml 03/14/20 08:36 Simple Syrup FEEDTUBE PRN PRN Hypoglycemia Sodium Bicarbonate 325 mg 03/14/20 08:36 Sodium Bicarbonate FEEDTUBE PRN PRN For Clogged Feeding Tube Ziprasidone 20 mg 03/11/20 16:28 03/14/20 03:51 Geodon IM 20 mg Q4H PRN Administration Agitation Nutrition/Malnutrition Assess - Dietary Evaluation Nutrition/Malnutrition Findings: Nutrition Notes Start: 03/13/20 08:38 Freq: Status: Active Protocol: Document 03/14/20 08:29 TALAT (Rec: 03/14/20 08:35 TALAT [id number]) Nutrition Notes Need for Assessment generated from: MD Order Initial or Follow up Assessment Current Diagnosis Diabetes,Hypertension Other Pertinent Diagnosis COVID(+), pneumonia, acute respiratory failure, Prader Willi Syndrome Current Diet No diet Labs/Tests K 5.1 Pertinent Medications Reviewed Height 4 ft 10 in Weight 165.4 kg [place] Body Weight (kg) 40.90 BMI 76.1 Weight Status Morbidly Obese Subjective/Other Information order for TF. Pt remains on vent. Burn Absent Trauma Absent Current % PO Negligible Minimum of two criteria No physical signs of malnutrition #1 Nutrition Diagnosis Inadequate oral intake Diagnosis Progress(for reassessment Continues documentation) Is patient on ventilator? Yes Is Patient Ambulatory and/or Out of Bed No REE-([facility]-confined to bed) 2729.208 Kcal/Kg value to use for calculation 12 Approximate Energy Requirements Using 1985 kcal/Kg Calculation Used for Recommendations Kcal/kg Additional Notes Pro: 102g (up to 2.5g/kg IBW) Fluid: 1 ml/kcal Nutrition Intervention Change Diet Order: TF start Nutrition Support: Nepro 1.8 at 45 ml/hr Flush 200 ml q4h Kcal 1,944 Protein (gm) 87 Fluid (mL) 785 Goal #1 Meet at least 75% of protein and energy needs via TF Anticipated Discharge Needs: Unable to determine at this time Follow-Up By: 03/17/20 Additional Comments FU for TF tolerance, renal labs
[2020-03-16] MEDS: fentaNYL DRIP Premix 2,000 MCG/100 ML BAG IV SCH ×8 (01:23→23:03)
[2020-03-16 01:58] LABS: Blood Urea Nitrogen 18 mg/dL (7-17); Calcium 9.1 mg/dL (8.4-10.2); Hemolysis Index 14
[2020-03-16 02:12] LABS: BUN/Creatinine Ratio 30
--- NOTE | 2020-03-16 03:59 | XRay Report ---
CHEST - 1 VIEW INDICATION: follow up respiratory failure COMPARISON: Yesterday FINDINGS: SUPPORT DEVICES: Stable support device positioning. HEART: Stable cardiomediastinal silhouette. LUNGS/PLEURA: Improved exam with mild residual interstitial edema. ADDITIONAL FINDINGS: None. IMPRESSION: Improved exam. Signer Name: Rick Hollis MD Signed: 03/16/2020 3:55 AM Workstation Name: [id number]
[2020-03-16] MEDS: INSULIN LISPRO 100 UNIT/ML VIAL 3 mL SUB-Q SCH ×3 (05:39→18:10)
[2020-03-16] MEDS: CEFEPIME/NS 2 GM/100 ML 2 GM/100 ML BAG IV SCH ×3 (05:41→21:33)
[2020-03-16] MEDS ORDERED: INSULIN GLARGINE 100 UNITS/ML SUB-Q SCH (10:00)
[2020-03-16] MEDS: SENNOSIDES/DOCUSATE SODIUM 8.6/50 MG TAB PO SCH ×2 (10:51→21:34)
[2020-03-16] MEDS: POLYETHYLENE GLYCOL 3350 17 GM POWDER PO SCH (10:51)
[2020-03-16] MEDS: HEPARIN 5,000 UNIT/1 ML VIAL SUB-Q SCH ×2 (10:51→21:32)
[2020-03-16] MEDS: LOSARTAN 50 MG TAB PO SCH (10:55)
[2020-03-16] MEDS: amLODIPine 10 MG TAB PO SCH (10:55)
[2020-03-16] MEDS: LANSOPRAZOLE 30 MG SOLUTAB FEEDTUBE SCH (10:55)
[2020-03-16] MEDS: DEXAMETHASONE 4 MG TAB PO SCH (10:55)
[2020-03-16] MEDS: risperiDONE 0.25 MG TAB PO SCH ×2 (11:00→21:34)
--- NOTE | 2020-03-16 11:13 | Progress Note ---
Assessment and Plan Cardiopulmoanry arrest with ROSC Acute hypoxemic respiratory failure on MVS COVID Extreme obesity Pulmonary HTN Obesity hypoventilation syndrome - PICC line ordered - reduce set rate to 12/min - keep peep at 10 overnight - CTA once more stable - continue care as below otherwise; - continue bowel regimen - adjust Geodon dose based on response - prn gentle diuresis; monitor output and follow renal function/electrolytes - contact and airborne isolation per facility protocols for COVID - Daily SAT's and SBT assessment as tolerated - continue accuchecks with glycemic control per SSI (While critically ill target blood glucose of 140-180 mg/dL; avoid hypoglycemia) - sedation prn for target RASS -1 to -2 - continue to wean supplemental oxygen for target O2 sat's > 92% acutely - VAP bundle addressed - continue lung protective strategies - continue bronchodilators with pulmonary hygiene per RT - wean per pulmonary driven protocols otherwise - Varela catheter in this critically ill patient - Conservative fluid management - avoid nephrotoxins, renally dose all medications - Empiric antibiotics to include HAP coverage (on Vanc and Cefepime); adjust per ID recommendations and clinical response - prn analgesia per CPOT score - Maintenance of sleep-wake cycle, avoid delirium - continue enteral nutritional support at goal rate as tolerated - G.I. & VTE prophylaxis withy Famotidine and Lovenox - PT/OT/ROM exercises - continue mobility protocols for pressure ulcer prophylaxis - Monitor hemodynamics closely - continue other care per attending / other consultants - discharge planning ongoing concurrently .... Re-evaluate in am & prn CONDITION: CRITICAL PROGNOSIS: GUARDED CODE STATUS: FULL CODE The high probability of a clinically significant, sudden or life-threatening deterioration of the [respiratory, cardiovascular and neurologic] system (s) required my full and direct attention, intervention and personal management. The aggregate critical care time was [32] minutes without overlap. Time includes spent on; [x] Data Review and interpretation [x] Patient assessment and monitoring of vital signs [x] Documentation [x] Medication orders and management Subjective Date of service: 03/16/20 Principal diagnosis: Cardiac arrest; Ac. hypoxemic resp failure; COVID 19 infxn; Pulm HTN; OHS Interval history: Patient is seen today for: Cardiopulmoanry arrest with ROSC; Acute hypoxemic r espiratory failure on MVS; COVID; Extreme obesity; Pulmonary HTN; Obesity hypoventilation syndrome Seen and examined at bedside; 24hour events reviewed; nursing and respiratory care staff consulted; no adverse overnight events reported to me; resting peacefully in bed; remains on MVS; FiO2 at 40% but peep at 10; s/p CODE Rapid response for hypoxemia and transient symptomatic bradycardia Objective Vital Signs - 12hr 03/15/20 03/15/20 03/15/20 23:16 23:30 23:40 Temperature Pulse Rate 56 L 54 L 54 L Respiratory 22 6 L 8 L Rate Blood Pressure 150/89 162/92 162/92 O2 Sat by Pulse 97 98 98 Oximetry 03/15/20 03/15/20 03/16/20 23:46 23:54 00:00 Temperature Pulse Rate 54 L 54 L 53 L Respiratory 9 L 21 23 Rate Blood Pressure 162/92 171/90 O2 Sat by Pulse 98 98 98 Oximetry 03/16/20 03/16/20 03/16/20 00:07 00:15 00:30 Temperature Pulse Rate 54 L 53 L 52 L Respiratory 20 28 H 17 Rate Blood Pressure 171/90 175/100 185/110 O2 Sat by Pulse 98 98 98 Oximetry 03/16/20 03/16/20 03/16/20 00:45 00:53 01:01 Temperature Pulse Rate 60 58 L 79 Respiratory 24 22 Rate Blood Pressure 162/97 162/97 162/97 O2 Sat by Pulse 98 98 95 Oximetry 03/16/20 03/16/20 03/16/20 01:15 01:30 01:31 Temperature Pulse Rate 86 54 L 54 L Respiratory 29 H 93 H 28 H Rate Blood Pressure 162/97 162/97 O2 Sat by Pulse 98 99 100 Oximetry 03/16/20 03/16/20 03/16/20 01:45 02:00 02:15 Temperature Pulse Rate 54 L 54 L 54 L Respiratory 28 H 28 H 28 H Rate Blood Pressure 163/84 165/85 186/102 O2 Sat by Pulse 100 100 100 Oximetry 03/16/20 03/16/20 03/16/20 02:30 02:45 03:01 Temperature Pulse Rate 54 L 53 L 117 H Respiratory 28 H 28 H 18 Rate Blood Pressure 163/103 186/105 186/105 O2 Sat by Pulse 100 100 92 Oximetry 03/16/20 03/16/20 03/16/20 03:15 03:22 03:30 Temperature 98.8 F Pulse Rate 144 H 167 H Respiratory 18 28 H Rate Blood Pressure 186/124 126/54 O2 Sat by Pulse 85 68 L Oximetry 03/16/20 03/16/20 03/16/20 03:35 03:37 03:45 Temperature Pulse Rate 70 81 70 Respiratory 93 H 28 H Rate Blood Pressure 126/54 130/65 O2 Sat by Pulse 99 96 96 Oximetry 03/16/20 03/16/20 03/16/20 04:00 04:15 04:30 Temperature Pulse Rate 59 L 56 L 55 L Respiratory 28 H 28 H 28 H Rate Blood Pressure 138/82 141/84 146/89 O2 Sat by Pulse 99 99 100 Oximetry 03/16/20 03/16/20 03/16/20 04:45 05:00 05:15 Temperature Pulse Rate 52 L 62 54 L Respiratory 28 H 20 20 Rate Blood Pressure 152/99 163/105 152/93 O2 Sat by Pulse 100 98 99 Oximetry 03/16/20 03/16/20 03/16/20 05:30 05:45 06:00 Temperature Pulse Rate 53 L 52 L 51 L Respiratory 20 20 20 Rate Blood Pressure 147/88 150/89 152/94 O2 Sat by Pulse 99 99 99 Oximetry 03/16/20 03/16/20 03/16/20 06:15 06:30 06:45 Temperature Pulse Rate 53 L 53 L 53 L Respiratory 20 20 19 Rate Blood Pressure 151/96 153/93 151/96 O2 Sat by Pulse 99 99 99 Oximetry 03/16/20 03/16/20 03/16/20 07:00 07:15 07:30 Temperature Pulse Rate 98 H 56 L 53 L Respiratory 20 20 20 Rate Blood Pressure 160/101 157/93 141/88 O2 Sat by Pulse 99 98 98 Oximetry 03/16/20 03/16/20 03/16/20 07:45 08:00 08:15 Temperature 98.6 F Pulse Rate 62 98 H 64 Respiratory 19 20 20 Rate Blood Pressure 148/99 164/97 148/85 O2 Sat by Pulse 98 96 98 Oximetry 03/16/20 03/16/20 03/16/20 08:30 08:45 09:00 Temperature Pulse Rate 57 L 55 L 53 L Respiratory 20 20 21 Rate Blood Pressure 139/84 137/79 139/82 O2 Sat by Pulse 99 99 99 Oximetry 1203/16/20 03/16/20 09:07 09:15 09:30 Temperature Pulse Rate 52 L 52 L 52 L Respiratory 15 20 Rate Blood Pressure 139/82 143/89 140/89 O2 Sat by Pulse 99 100 99 Oximetry 03/16/20 03/16/20 03/16/20 09:45 10:00 10:15 Temperature Pulse Rate 53 L 51 L 51 L Respiratory 20 15 17 Rate Blood Pressure 144/93 145/89 148/94 O2 Sat by Pulse 99 100 100 Oximetry 03/16/20 03/16/20 03/16/20 10:30 10:45 10:55 Temperature Pulse Rate 53 L 51 L 52 L Respiratory 13 20 Rate Blood Pressure 153/99 153/99 153/99 O2 Sat by Pulse 100 99 Oximetry 03/16/20 11:00 Temperature Pulse Rate 52 L Respiratory 15 Rate Blood Pressure 143/90 O2 Sat by Pulse 99 Oximetry Constitutional: appears uncomfortable, other (young obese female with mildly increased respiratory effort at6 rest on MVS) Eyes: non-icteric ENT: oropharynx moist, other (orally intuabted, ETT 7.5 at 22cm ) Neck: supple, no lymphadenopathy, other (large neck circumference) Effort: mildly labored Ascultation: Bilateral: diminished breath sounds, rhonchi Cardiovascular: regular rate and rhythm, other (S1,S2) Gastrointestinal: normoactive bowel sounds, soft, non-distended, other (obese) Integumentary: rash Extremities: pulses normal, cool, edema Neurologic: non-focal exam (moves all extremities, holding onto the rails), unable to assess Psychiatric: other (unable to assess) CBC and BMP: 03/17/20 11:55 03/17/20 11:55 ABG, PT/INR, D-dimer: ABG ABG pH 7.540 (7.320-7.450) H 03/16/20 Unknown POC ABG pCO2 37.5 mmHg (32.0-48.0) 03/16/20 Unknown ABG pCO2 44.2 mm Hg 03/14/20 06:15 POC ABG pO2 100.0 mmHg (83-108) 03/16/20 Unknown ABG pO2 92.8 mm Hg (80.0-90.0) H 03/14/20 06:15 POC ABG HCO3 31.3 03/16/20 Unknown ABG O2 Saturation 97.6 % (95.0-99.0) 03/14/20 06:15 PT/INR, D-dimer PT 13.7 Sec. (12.2-14.9) 03/09/20 08:27 INR 1.06 (0.87-1.13) 03/09/20 08:27 D-Dimer 1042.81 ng/mlDDU (0-234) H 03/09/20 08:27 Abnormal lab findings: Abnormal Labs 03/09/20 03/09/20 03/09/20 08:27 08:27 08:27 WBC 15.8 H RBC 5.43 H MCH 24 L MCHC RDW 19.3 H Lymph % (Auto) Harris % (Auto) 8.2 H Harris # (Auto) 1.3 H Seg Neutrophils % 70.4 H Seg Neutrophils # 11.1 H D-Dimer ABG pH ABG pO2 ABG HCO3 ABG Base Excess ABG Hemoglobin ABG Sodium ABG Glucose Oxyhemoglobin Potassium Chloride 97.1 L Carbon Dioxide BUN 29 H Creatinine Glucose 178 H POC Glucose Hemoglobin A1c Lactic Acid 3.70 H* Total Bilirubin AST ALT Lactate Dehydrogenase 369 H C-Reactive Protein 3.00 H NT-Pro-B Natriuret Pep Total Protein Albumin Arterial Blood Glucose Arterial Blood Ionized Calcium Coronavirus (PCR) 03/09/20 03/09/20 03/09/20 08:27 08:27 08:27 WBC RBC MCH MCHC RDW Lymph % (Auto) Harris % (Auto) Harris # (Auto) Seg Neutrophils % Seg Neutrophils # D-Dimer 1042.81 H ABG pH ABG pO2 ABG HCO3 ABG Base Excess ABG Hemoglobin ABG Sodium ABG Glucose Oxyhemoglobin Potassium Chloride Carbon Dioxide BUN Creatinine Glucose POC Glucose Hemoglobin A1c 8.0 H Lactic Acid Total Bilirubin AST ALT Lactate Dehydrogenase C-Reactive Protein NT-Pro-B Natriuret Pep 2914 H Total Protein Albumin Arterial Blood Glucose Arterial Blood Ionized Calcium Coronavirus (PCR) 03/09/20 03/09/20 03/10/20 08:43 23:04 05:23 WBC RBC MCH MCHC RDW Lymph % (Auto) Harris % (Auto) Harris # (Auto) Seg Neutrophils % Seg Neutrophils # D-Dimer ABG pH ABG pO2 ABG HCO3 ABG Base Excess ABG Hemoglobin ABG Sodium ABG Glucose Oxyhemoglobin Potassium Chloride Carbon Dioxide BUN Creatinine Glucose POC Glucose 361 H Hemoglobin A1c Lactic Acid 6.80 H* Total Bilirubin AST ALT Lactate Dehydrogenase C-Reactive Protein NT-Pro-B Natriuret Pep Total Protein Albumin Arterial Blood Glucose Arterial Blood Ionized Calcium Coronavirus (PCR) Positive A 03/10/20 03/10/20 03/10/20 08:19 10:49 17:11 WBC RBC MCH MCHC RDW Lymph % (Auto) Harris % (Auto) Harris # (Auto) Seg Neutrophils % Seg Neutrophils # D-Dimer ABG pH ABG pO2 ABG HCO3 ABG Base Excess ABG Hemoglobin ABG Sodium ABG Glucose Oxyhemoglobin Potassium Chloride Carbon Dioxide BUN Creatinine Glucose POC Glucose 371 H 423 H 373 H Hemoglobin A1c Lactic Acid Total Bilirubin AST ALT Lactate Dehydrogenase C-Reactive Protein NT-Pro-B Natriuret Pep Total Protein Albumin Arterial Blood Glucose Arterial Blood Ionized Calcium Coronavirus (PCR) 03/11/20 03/11/20 03/11/20 00:29 07:52 13:12 WBC RBC MCH MCHC RDW Lymph % (Auto) Harris % (Auto) Harris # (Auto) Seg Neutrophils % Seg Neutrophils # D-Dimer ABG pH ABG pO2 ABG HCO3 ABG Base Excess ABG Hemoglobin ABG Sodium ABG Glucose Oxyhemoglobin Potassium Chloride Carbon Dioxide BUN Creatinine Glucose POC Glucose 242 H 233 H 352 H Hemoglobin A1c Lactic Acid Total Bilirubin AST ALT Lactate Dehydrogenase C-Reactive Protein NT-Pro-B Natriuret Pep Total Protein Albumin Arterial Blood Glucose Arterial Blood Ionized Calcium Coronavirus (PCR) 03/11/20 03/11/20 03/12/20 15:24 22:54 08:22 WBC RBC MCH MCHC RDW Lymph % (Auto) Harris % (Auto) Harris # (Auto) Seg Neutrophils % Seg Neutrophils # D-Dimer ABG pH ABG pO2 ABG HCO3 ABG Base Excess ABG Hemoglobin ABG Sodium ABG Glucose Oxyhemoglobin Potassium Chloride Carbon Dioxide BUN Creatinine Glucose POC Glucose 386 H 418 H 431 H Hemoglobin A1c Lactic Acid Total Bilirubin AST ALT Lactate Dehydrogenase C-Reactive Protein NT-Pro-B Natriuret Pep Total Protein Albumin Arterial Blood Glucose Arterial Blood Ionized Calcium Coronavirus (PCR) 03/12/20 03/12/20 03/12/20 11:34 16:53 22:20 WBC RBC MCH MCHC RDW Lymph % (Auto) Harris % (Auto) Harris # (Auto) Seg Neutrophils % Seg Neutrophils # D-Dimer ABG pH ABG pO2 ABG HCO3 ABG Base Excess ABG Hemoglobin ABG Sodium ABG Glucose Oxyhemoglobin Potassium Chloride Carbon Dioxide BUN Creatinine Glucose POC Glucose 310 H 358 H 295 H Hemoglobin A1c Lactic Acid Total Bilirubin AST ALT Lactate Dehydrogenase C-Reactive Protein NT-Pro-B Natriuret Pep Total Protein Albumin Arterial Blood Glucose Arterial Blood Ionized Calcium Coronavirus (PCR) 03/13/20 03/13/20 03/13/20 05:48 09:15 12:09 WBC 18.3 H RBC MCH 24 L MCHC 29 L RDW 18.9 H Lymph % (Auto) 7.8 L Harris % (Auto) 9.7 H Harris # (Auto) 1.8 H Seg Neutrophils % 82.0 H Seg Neutrophils # 15.0 H D-Dimer ABG pH 7.327 L ABG pO2 73.0 L ABG HCO3 39.3 H ABG Base Excess 10.8 H ABG Hemoglobin 11.2 L ABG Sodium ABG Glucose Oxyhemoglobin 93.4 L Potassium Chloride Carbon Dioxide BUN Creatinine Glucose POC Glucose 216 H Hemoglobin A1c Lactic Acid Total Bilirubin AST ALT Lactate Dehydrogenase C-Reactive Protein NT-Pro-B Natriuret Pep Total Protein Albumin Arterial Blood Glucose Arterial Blood Ionized Calcium Coronavirus (PCR) 03/13/20 03/13/20 03/13/20 12:09 12:11 17:23 WBC RBC MCH MCHC RDW Lymph % (Auto) Harris % (Auto) Harris # (Auto) Seg Neutrophils % Seg Neutrophils # D-Dimer ABG pH ABG pO2 ABG HCO3 ABG Base Excess ABG Hemoglobin ABG Sodium ABG Glucose Oxyhemoglobin Potassium 5.1 H Chloride Carbon Dioxide 37 H D BUN Creatinine Glucose 154 H POC Glucose 148 H 217 H Hemoglobin A1c Lactic Acid Total Bilirubin AST 47 H ALT 128 H Lactate Dehydrogenase C-Reactive Protein NT-Pro-B Natriuret Pep Total Protein 5.9 L Albumin 3.0 L Arterial Blood Glucose Arterial Blood Ionized Calcium Coronavirus (PCR) 03/14/20 03/14/20 03/14/20 06:15 06:55 09:17 WBC 14.9 H RBC MCH 25 L MCHC RDW 19.1 H Lymph % (Auto) 9.5 L Harris % (Auto) Harris # (Auto) 0.9 H Seg Neutrophils % 83.8 H Seg Neutrophils # 12.5 H D-Dimer ABG pH 7.544 H ABG pO2 92.8 H ABG HCO3 37.3 H ABG Base Excess 13.5 H ABG Hemoglobin 10.5 L ABG Sodium ABG Glucose Oxyhemoglobin Potassium Chloride Carbon Dioxide BUN Creatinine Glucose POC Glucose 182 H Hemoglobin A1c Lactic Acid Total Bilirubin AST ALT Lactate Dehydrogenase C-Reactive Protein NT-Pro-B Natriuret Pep Total Protein Albumin Arterial Blood Glucose Arterial Blood Ionized Calcium Coronavirus (PCR) 03/14/20 03/14/20 03/14/20 09:17 11:43 17:47 WBC RBC MCH MCHC RDW Lymph % (Auto) Harris % (Auto) Harris # (Auto) Seg Neutrophils % Seg Neutrophils # D-Dimer ABG pH ABG pO2 ABG HCO3 ABG Base Excess ABG Hemoglobin ABG Sodium ABG Glucose Oxyhemoglobin Potassium Chloride Carbon Dioxide 34 H BUN Creatinine 0.5 L Glucose 204 H POC Glucose 283 H 254 H Hemoglobin A1c Lactic Acid Total Bilirubin 2.60 H AST 82 H ALT 152 H Lactate Dehydrogenase C-Reactive Protein NT-Pro-B Natriuret Pep Total Protein 5.7 L Albumin 3.0 L Arterial Blood Glucose Arterial Blood Ionized Calcium Coronavirus (PCR) 03/14/20 03/15/20 03/15/20 23:59 03:08 05:52 WBC RBC MCH MCHC RDW Lymph % (Auto) Harris % (Auto) Harris # (Auto) Seg Neutrophils % Seg Neutrophils # D-Dimer ABG pH 7.536 H ABG pO2 ABG HCO3 ABG Base Excess ABG Hemoglobin 10.7 L ABG Sodium 135.2 L ABG Glucose 317 H Oxyhemoglobin Potassium Chloride Carbon Dioxide BUN Creatinine Glucose POC Glucose 293 H 293 H Hemoglobin A1c Lactic Acid Total Bilirubin AST ALT Lactate Dehydrogenase C-Reactive Protein NT-Pro-B Natriuret Pep Total Protein Albumin Arterial Blood Glucose 317 H Arterial Blood Ionized Calcium 4.5 L Coronavirus (PCR) 03/15/20 03/15/20 03/15/20 13:29 17:43 23:26 WBC RBC MCH MCHC RDW Lymph % (Auto) Harris % (Auto) Harris # (Auto) Seg Neutrophils % Seg Neutrophils # D-Dimer ABG pH ABG pO2 ABG HCO3 ABG Base Excess ABG Hemoglobin ABG Sodium ABG Glucose Oxyhemoglobin Potassium Chloride Carbon Dioxide BUN Creatinine Glucose POC Glucose 299 H 327 H 325 H Hemoglobin A1c Lactic Acid Total Bilirubin AST ALT Lactate Dehydrogenase C-Reactive Protein NT-Pro-B Natriuret Pep Total Protein Albumin Arterial Blood Glucose Arterial Blood Ionized Calcium Coronavirus (PCR) 03/16/20 03/16/20 03/16/20 01:28 05:26 Unknown WBC RBC MCH MCHC RDW Lymph % (Auto) Harris % (Auto) Harris # (Auto) Seg Neutrophils % Seg Neutrophils # D-Dimer ABG pH 7.540 H ABG pO2 ABG HCO3 ABG Base Excess ABG Hemoglobin 10.5 L ABG Sodium ABG Glucose 312 H Oxyhemoglobin Potassium Chloride Carbon Dioxide BUN 18 H Creatinine Glucose 330 H POC Glucose 264 H Hemoglobin A1c Lactic Acid Total Bilirubin AST ALT Lactate Dehydrogenase C-Reactive Protein NT-Pro-B Natriuret Pep Total Protein Albumin Arterial Blood Glucose 312 H Arterial Blood Ionized Calcium Coronavirus (PCR) Chest x-ray: image reviewed (cardiomegaly with bibasilar infiltrates +/- atelectasis) Allied health notes reviewed: nursing
--- NOTE | 2020-03-16 11:53 | Progress Note ---
Assessment and Plan --Acute respiratory failure due to COVID-19 and staph PNA patient now intubated since 03/13 following a cardiac arrest Critical care following, continue scheduled breathing treatment, IV steroid Wean off from vent as tolerated --Status post cardiac arrest on 03/13 Patient currently intubated, 2D echo showed preserved EF with right ventricular pressure 68 --Novel Coronavirus infection Coronavirus protocol: Infectious disease service consulted, contact precautions, isolation precaution, steroid therapy, follow inflammatory markers Diagnosed over 2 weeks ago, as such not a candidate for remdesivir. Given that her ferritin is normal, less likely to be in cytokine storm. -- Pneumonia Pneumonia protocol: Supplemental oxygen, IV antibiotic therapy, pulse oximetry, blood culture. -Continue cefepime 2 g every 8 hours given elevated white count, lactic acid and procalcitonin -Continue vancomycin pending staph aureus JEOVANY -Plan short course of antibiotics, likely 7 days. -- Hypertension Monitor blood pressure every shift, continue medical management -- Diabetes type 2 Tube feeding diet, sliding scale insulin therapy, Accu-Chek, hypoglycemia protocol -- Obesity hypoventilation syndrome BMI 78.7, monitor weight pulse oximetry, nebulizer therapy, supplemental oxygen, patient now intubated outpatient pulmonary follow-up for sleep study when clinically stable, need recommendation on balanced diet, increase physical activity at discharge -- Pulmonary hypertension Supportive care, outpatient pulmonology follow-up for sleep study. And also need evaluation for vasodilator therapy. -- DVT prophylaxis SCD to bilateral lower extremities while in bed, prophylactic anticoagulation. The high probability of a clinically significant, sudden or life threatening deterioration of the [pulmonary, cardiac, renal, neuro] system(s) required my full and direct attention, intervention and personal management. The aggregate critical care time was [90] minutes. This time is in addition to time spent performing reported procedures but includes the following: [x] Data Review and interpretation [x] Patient assessment and monitoring of vital signs [x] Documentation [x] Medication orders and management Brief history: 29-year-old female past medical history morbid obesity, obesity hypoventilation syndrome, diabetes admitted with shortness of breath. Patient is positive for COVID-19 diagnosed 2 weeks ago, patient currently intubated following a cardiac arrest on 03/13/20. ID following and critical care following. Sputum culture is positive for staph aureus. 03/16: cont iv abx, follow pending sputum Cx. wean off vent as tolerated Subjective Date of service: 03/16/20 Principal diagnosis: Cardiac arrest; Ac. hypoxemic resp failure; COVID 19 infxn; Pulm HTN; OHS Interval history: Patient seen and examined Patient currently intubated with mechanical ventilation Patient also sedated and restrained Discussed with RN at the bedside No acute overnight event Objective - Exam Narrative Exam: GENERAL: well-developed morbidly obese -[place] female lying on bed intubated and sedated. HEENT: Normocephalic. Atraumatic. No conjunctival congestion or icterus. Patient has moist mucous membranes. NECK: Supple. Trachea midline. ET tube in place CHEST/LUNGS: Diminished breath sound auscultated bilaterally, mechanically ventilated HEART/CARDIOVASCULAR: Tachycardic. S1 and S2 positive. ABDOMEN: Abdomen is soft, nontender. Patient has normal bowel sounds. SKIN: There is no rash. Warm and dry. NEURO: Sedated MUSCULOSKELETAL: No joint effusion or tenderness. EXTRIMITY: No edema, no cyanosis or clubbing. PSYCH: Sedated. - Constitutional Vitals: Vital Signs - 12hr 03/15/20 03/16/20 03/16/20 23:54 00:00 00:07 Temperature Pulse Rate 54 L 53 L 54 L Respiratory 21 23 20 Rate Blood Pressure 171/90 171/90 O2 Sat by Pulse 98 98 98 Oximetry 03/16/20 03/16/20 03/16/20 00:15 00:30 00:45 Temperature Pulse Rate 53 L 52 L 60 Respiratory 28 H 17 24 Rate Blood Pressure 175/100 185/110 162/97 O2 Sat by Pulse 98 98 98 Oximetry 03/16/20 03/16/20 03/16/20 00:53 01:01 01:15 Temperature Pulse Rate 58 L 79 86 Respiratory 22 29 H Rate Blood Pressure 162/97 162/97 162/97 O2 Sat by Pulse 98 95 98 Oximetry 03/16/20 03/16/20 03/16/20 01:30 01:31 01:45 Temperature Pulse Rate 54 L 54 L 54 L Respiratory 93 H 28 H 28 H Rate Blood Pressure 162/97 163/84 O2 Sat by Pulse 99 100 100 Oximetry 03/16/20 03/16/20 03/16/20 02:00 02:15 02:30 Temperature Pulse Rate 54 L 54 L 54 L Respiratory 28 H 28 H 28 H Rate Blood Pressure 165/85 186/102 163/103 O2 Sat by Pulse 100 100 100 Oximetry 03/16/20 03/16/20 03/16/20 02:45 03:01 03:15 Temperature Pulse Rate 53 L 117 H 144 H Respiratory 28 H 18 18 Rate Blood Pressure 186/105 186/105 186/124 O2 Sat by Pulse 100 92 85 Oximetry 03/16/20 03/16/20 03/16/20 03:22 03:30 03:35 Temperature 98.8 F Pulse Rate 167 H 70 Respiratory 28 H 93 H Rate Blood Pressure 126/54 O2 Sat by Pulse 68 L 99 Oximetry 03/16/20 03/16/20 03/16/20 03:37 03:45 04:00 Temperature Pulse Rate 81 70 59 L Respiratory 28 H 28 H Rate Blood Pressure 126/54 130/65 138/82 O2 Sat by Pulse 96 96 99 Oximetry 03/16/20 03/16/20 03/16/20 04:15 04:30 04:45 Temperature Pulse Rate 56 L 55 L 52 L Respiratory 28 H 28 H 28 H Rate Blood Pressure 141/84 146/89 152/99 O2 Sat by Pulse 99 100 100 Oximetry 03/16/20 03/16/20 03/16/20 05:00 05:15 05:30 Temperature Pulse Rate 62 54 L 53 L Respiratory 20 20 20 Rate Blood Pressure 163/105 152/93 147/88 O2 Sat by Pulse 98 99 99 Oximetry 03/16/20 03/16/20 03/16/20 05:45 06:00 06:15 Temperature Pulse Rate 52 L 51 L 53 L Respiratory 20 20 20 Rate Blood Pressure 150/89 152/94 151/96 O2 Sat by Pulse 99 99 99 Oximetry 03/16/20 03/16/20 03/16/20 06:30 06:45 07:00 Temperature Pulse Rate 53 L 53 L 98 H Respiratory 20 19 20 Rate Blood Pressure 153/93 151/96 160/101 O2 Sat by Pulse 99 99 99 Oximetry 03/16/20 03/16/20 03/16/20 07:15 07:30 07:45 Temperature Pulse Rate 56 L 53 L 62 Respiratory 20 20 19 Rate Blood Pressure 157/93 141/88 148/99 O2 Sat by Pulse 98 98 98 Oximetry 03/16/20 03/16/20 03/16/20 08:00 08:15 08:30 Temperature 98.6 F Pulse Rate 98 H 64 57 L Respiratory 20 20 20 Rate Blood Pressure 164/97 148/85 139/84 O2 Sat by Pulse 96 98 99 Oximetry 03/16/20 03/16/20 03/16/20 08:45 09:00 09:07 Temperature Pulse Rate 55 L 53 L 52 L Respiratory 20 21 Rate Blood Pressure 137/79 139/82 139/82 O2 Sat by Pulse 99 99 99 Oximetry 03/16/20 03/16/20 03/16/20 09:15 09:30 09:45 Temperature Pulse Rate 52 L 52 L 53 L Respiratory 15 20 20 Rate Blood Pressure 143/89 140/89 144/93 O2 Sat by Pulse 100 99 99 Oximetry 03/16/20 03/16/20 03/16/20 10:00 10:15 10:30 Temperature Pulse Rate 51 L 51 L 53 L Respiratory 15 17 13 Rate Blood Pressure 145/89 148/94 153/99 O2 Sat by Pulse 100 100 100 Oximetry 03/16/20 03/16/20 03/16/20 10:45 10:55 11:00 Temperature Pulse Rate 51 L 52 L 52 L Respiratory 20 15 Rate Blood Pressure 153/99 153/99 143/90 O2 Sat by Pulse 99 99 Oximetry - Labs CBC & Chem 7: 03/17/20 11:55 03/17/20 11:55 Labs: Abnormal lab results 03/15/20 03/15/20 03/15/20 Range/Units 13:29 17:43 23:26 ABG pH (7.320-7.450) ABG Hemoglobin (12.0-17.5) ABG Glucose (65-95) mg/dL BUN (7-17) mg/dL Glucose (65-100) mg/dL POC Glucose 299 H 327 H 325 H (70-105) mg/dL Arterial Blood Glucose (65-95) mg/dL 03/16/20 03/16/20 03/16/20 Range/Units 01:28 04:44 05:26 ABG pH 7.540 H (7.320-7.450) ABG Hemoglobin 10.5 L (12.0-17.5) ABG Glucose 312 H (65-95) mg/dL BUN 18 H (7-17) mg/dL Glucose 330 H (65-100) mg/dL POC Glucose 264 H (70-105) mg/dL Arterial Blood Glucose 312 H (65-95) mg/dL HEART Score - HEART Score Troponin: Troponin T 0.017 ng/mL (0.00-0.029) 03/14/20 09:17
[2020-03-16] MEDS: PROPOFOL 500 MG/50 ML VIAL IV SCH ×5 (14:27→21:56)
--- NOTE | 2020-03-16 15:29 | Progress Note ---
Assessment and Plan Cultures: Blood culture 03/09/2020 pending Urine culture 03/09/2020 pending Tracheal aspirate culture 03/13/2020 staph aureus A/P: 29-year-old female past medical history morbid obesity, obesity hypoventilation syndrome, diabetes admitted with shortness of breath #COVID-19 pneumonia: Diagnosed over 2 weeks ago, as such not a candidate for remdesivir. Given that her ferritin is normal, less likely to be in cytokine storm. Procalcitonin slightly elevated at 0.3 #Acute hypoxemic respiratory failure: Likely secondary to COVID-19 infection versus CHF versus bacterial pneumonia. Currently on intubated #Diabetes: tight glycemic control for best outcomes. #Morbid obesity: Associated with worse outcomes, recommend diet modifications Recs: -Continue cefepime 2 g every 8 hours given elevated white count, lactic acid and procalcitonin -Continue vancomycin pending staph aureus JEOVANY -Plan short course of antibiotics, likely 7 days. -Repeat procalcitonin in a.m. -Follow white count. -Possible de-escalation following finalization of tracheal aspirate culture. Thank you for the consult, we will continue to follow. Freida Koch MD [facility] ([facility] O: [phone] F: [phone] Subjective Date of service: 03/16/20 Principal diagnosis: Cardiac arrest; Ac. hypoxemic resp failure; COVID 19 infxn; Pulm HTN; OHS Interval history: Afebrile, no acute changes at present. Remains mechanically ventilated. Imaging personally reviewed: Chest x-ray: Slightly improved. Objective - Exam Narrative Exam: Physical exam deferred due to PPE conservation strategy. Please refer to primary team's note. - Constitutional Vitals: Vital Signs Temp Pulse Resp BP Pulse Ox 99.1 F 103 H 20 155/99 93 03/16/20 12:00 03/16/20 14:30 03/16/20 14:30 03/16/20 14:30 03/16/20 14:30 Temperature -Last 24 Hours Temperature 99.1 F Temperature 98.6 F Temperature 98.8 F Temperature 98.4 F Temperature 98.9 F Temperature 98.2 F - Labs CBC & Chem 7: 03/14/20 09:17 03/16/20 01:28 Labs: Abnormal lab results 03/15/20 03/15/20 03/16/20 Range/Units 17:43 23:26 01:28 ABG pH (7.320-7.450) ABG Hemoglobin (12.0-17.5) ABG Glucose (65-95) mg/dL BUN 18 H (7-17) mg/dL Glucose 330 H (65-100) mg/dL POC Glucose 327 H 325 H (70-105) mg/dL Arterial Blood Glucose (65-95) mg/dL 03/16/20 03/16/20 03/16/20 Range/Units 04:44 05:26 11:58 ABG pH 7.540 H (7.320-7.450) ABG Hemoglobin 10.5 L (12.0-17.5) ABG Glucose 312 H (65-95) mg/dL BUN (7-17) mg/dL Glucose (65-100) mg/dL POC Glucose 264 H 196 H (70-105) mg/dL Arterial Blood Glucose 312 H (65-95) mg/dL
[2020-03-16] MEDS: VANCOMYCIN 2,000 MG in SODIUM CHLORIDE 0.9% 500 ML 500 ML IV SCH ×2 (15:56)
--- NOTE | 2020-03-16 18:07 | XRay Report ---
XR chest 1V ap INDICATION / CLINICAL INFORMATION: poss Pneumo. COMPARISON: Radiograph from earlier same day. FINDINGS: SUPPORT DEVICES: Endotracheal tube terminates appropriately at the level of the clavicular heads. En teric tube courses beneath the diaphragm. HEART / MEDIASTINUM: Prominent but unchanged. LUNGS / PLEURA: Unchanged pulmonary vascular congestion with mild perihilar airspace disease. Possibl e bilateral small effusions No pneumothorax. ADDITIONAL FINDINGS: No significant additional findings. IMPRESSION: 1. Cardiomegaly with persistent mild perihilar airspace disease most consistent with alveolar edema. Possible small effusions. Overall, no significant change. Signer Name: Zander Mota MD Signed: 03/16/2020 6:03 PM Workstation Name: [id number]
[2020-03-16] MEDS: INSULIN GLARGINE 100 UNITS/ML SUB-Q SCH (21:33)
[2020-03-17] MEDS: PROPOFOL 500 MG/50 ML VIAL IV SCH ×7 (00:23→11:33)
[2020-03-17] MEDS: INSULIN LISPRO 100 UNIT/ML VIAL 3 mL SUB-Q SCH ×4 (00:34→17:44)
[2020-03-17] MEDS: fentaNYL DRIP Premix 2,000 MCG/100 ML BAG IV SCH ×7 (01:49→20:24)
[2020-03-17] MEDS: HALOPERIDOL LACTATE 5 MG/1 ML INJ IM PRN (03:32)
--- NOTE | 2020-03-17 03:58 | XRay Report ---
CHEST - 1 VIEW INDICATION: follow up respiratory failure COMPARISON: Yesterday FINDINGS: SUPPORT DEVICES: Stable support device positioning. HEART: Stable cardiomediastinal silhouette. LUNGS/PLEURA: Persistent moderate edema. ADDITIONAL FINDINGS: None. IMPRESSION: Unchanged exam. Signer Name: Rick Hollis MD Signed: 03/17/2020 3:53 AM Workstation Name: [id number]
[2020-03-17] MEDS: VANCOMYCIN 2,000 MG in SODIUM CHLORIDE 0.9% 500 ML 500 ML IV SCH ×2 (06:11→15:01)
[2020-03-17] MEDS: CEFEPIME/NS 2 GM/100 ML 2 GM/100 ML BAG IV SCH (06:12)
[2020-03-17] MEDS: DEXAMETHASONE 4 MG TAB PO SCH (09:54)
[2020-03-17] MEDS: risperiDONE 0.25 MG TAB PO SCH (09:55)
[2020-03-17] MEDS: amLODIPine 10 MG TAB PO SCH (09:58)
[2020-03-17] MEDS: LOSARTAN 50 MG TAB PO SCH (09:59)
[2020-03-17] MEDS: HEPARIN 5,000 UNIT/1 ML VIAL SUB-Q SCH ×2 (09:59→22:55)
[2020-03-17] MEDS: SENNOSIDES/DOCUSATE SODIUM 8.6/50 MG TAB PO SCH ×2 (09:59→22:54)
[2020-03-17] MEDS: LANSOPRAZOLE 30 MG SOLUTAB FEEDTUBE SCH (11:32)
[2020-03-17] MEDS: POLYETHYLENE GLYCOL 3350 17 GM POWDER PO SCH (11:33)
[2020-03-17 12:26] LABS: Hematocrit 29.7 % (30.3-42.9); Hemoglobin 9.2 gm/dl (10.1-14.3); Mean Corpuscular HGB Conc 31 % (30-34); Mean Corpuscular Volume 81 fl (79-97); Platelet Count 246 K/mm3 (140-440); Red Blood Count 3.69 M/mm3 (3.65-5.03); Red Cell Distribution Width 19.9 % (13.2-15.2)
[2020-03-17 12:31] LABS: Blood Urea Nitrogen 21 mg/dL (7-17); Calcium 8.9 mg/dL (8.4-10.2); Hemolysis Index 11
[2020-03-17 12:34] LABS: BUN/Creatinine Ratio 42
--- NOTE | 2020-03-17 14:01 | Progress Note ---
Assessment and Plan Cardiopulmoanry arrest with ROSC Acute hypoxemic respiratory failure on MVS COVID Extreme obesity Pulmonary HTN Obesity hypoventilation syndrome - 12 lead EKG re: QT interval - discontinue Risperdal and Geodon - Seroquel 150 mg BID if QT not significantly elevated - stop Propofol re: bradyarrythmia - get CTA chest - CXR post PICC line - keep peep at 10 for now - continue care as below otherwise; - continue bowel regimen - adjust Geodon dose based on response - prn gentle diuresis; monitor output and follow renal function/electrolytes - contact and airborne isolation per facility protocols for COVID - Daily SAT's and SBT assessment as tolerated - continue accuchecks with glycemic control per SSI (While critically ill target blood glucose of 140-180 mg/dL; avoid hypoglycemia) - sedation prn for target RASS -1 to -2 - continue to wean supplemental oxygen for target O2 sat's > 92% acutely - VAP bundle addressed - continue lung protective strategies - continue bronchodilators with pulmonary hygiene per RT - wean per pulmonary driven protocols otherwise - Varela catheter in this critically ill patient - Conservative fluid management - avoid nephrotoxins, renally dose all medications - Empiric antibiotics to include HAP coverage (on Vanc and Cefepime); adjust per ID recommendations and clinical response - prn analgesia per CPOT score - Maintenance of sleep-wake cycle, avoid delirium - continue enteral nutritional support at goal rate as tolerated - G.I. & VTE prophylaxis withy Famotidine and Lovenox - PT/OT/ROM exercises - continue mobility protocols for pressure ulcer prophylaxis - Monitor hemodynamics closely - continue other care per attending / other consultants - discharge planning ongoing concurrently .... Re-evaluate in am & prn CONDITION: CRITICAL PROGNOSIS: GUARDED CODE STATUS: FULL CODE The high probability of a clinically significant, sudden or life-threatening deterioration of the [respiratory, cardiovascular and neurologic] system (s) required my full and direct attention, intervention and personal management. The aggregate critical care time was [35] minutes without overlap. Time includes spent on; [x] Data Review and interpretation [x] Patient assessment and monitoring of vital signs [x] Documentation [x] Medication orders and management Subjective Date of service: 03/17/20 Principal diagnosis: Cardiac arrest; Ac. hypoxemic resp failure; COVID 19 infxn; Pulm HTN; OHS Interval history: Patient is seen today for: Cardiopulmoanry arrest with ROSC; Acute hypoxemic respiratory failure on MVS; COVID; Extreme obesity; Pulmonary HTN; Obesity hypov entilation syndrome Seen and examined at bedside; 24hour events reviewed; nursing and respiratory care staff consulted; no adverse overnight events reported to me; resting pe acefully in bed; remains on MVS; FiO2 back down to 40% but peep at 10; remains sedated (agitated during SAT's); no emesis or overt aspiration reported Objective Vital Signs - 12hr 03/17/20 03/17/20 03/17/20 02:00 02:16 02:30 Temperature Pulse Rate 54 L 97 H 142 H Pulse Rate [ From Monitor] Respiratory 25 H 17 27 H Rate Blood Pressure 157/95 157/95 157/95 O2 Sat by Pulse 99 98 95 Oximetry 03/17/20 03/17/20 03/17/20 02:45 03:00 03:16 Temperature Pulse Rate 110 H 92 H 151 H Pulse Rate [ From Monitor] Respiratory 25 H 29 H 24 Rate Blood Pressure 150/106 144/107 183/104 O2 Sat by Pulse 94 93 92 Oximetry 03/17/20 03/17/20 03/17/20 03:30 03:45 04:00 Temperature 99.0 F Pulse Rate 129 H 106 H 108 H Pulse Rate [ 107 H From Monitor] Respiratory 31 H 30 H 25 H Rate Blood Pressure 184/106 195/99 195/91 O2 Sat by Pulse 93 96 98 Oximetry 03/17/20 03/17/20 03/17/20 04:15 04:30 04:45 Temperature Pulse Rate 125 H 86 84 Pulse Rate [ From Monitor] Respiratory 19 25 H 25 H Rate Blood Pressure 163/116 156/97 156/97 O2 Sat by Pulse 94 98 97 Oximetry 03/17/20 03/17/20 03/17/20 05:00 05:15 05:30 Temperature Pulse Rate 82 81 65 Pulse Rate [ From Monitor] Respiratory 25 H 25 H 25 H Rate Blood Pressure 157/99 145/88 132/74 O2 Sat by Pulse 98 97 98 Oximetry 03/17/20 03/17/20 03/17/20 05:45 06:00 06:15 Temperature Pulse Rate 64 59 L 54 L Pulse Rate [ From Monitor] Respiratory 25 H 25 H 25 H Rate Blood Pressure 133/76 127/72 129/73 O2 Sat by Pulse 100 100 100 Oximetry 03/17/20 03/17/20 03/17/20 06:30 06:45 07:00 Temperature Pulse Rate 57 L 52 L 55 L Pulse Rate [ From Monitor] Respiratory 25 H 25 H 25 H Rate Blood Pressure 125/74 122/73 129/71 O2 Sat by Pulse 99 100 98 Oximetry 03/17/20 03/17/20 03/17/20 07:16 07:30 07:46 Temperature Pulse Rate 93 H 129 H 138 H Pulse Rate [ From Monitor] Respiratory 14 18 23 Rate Blood Pressure 155/96 219/123 219/123 O2 Sat by Pulse 98 Oximetry 03/17/20 03/17/20 03/17/20 08:00 08:15 08:30 Temperature Pulse Rate 123 H 117 H 109 H Pulse Rate [ From Monitor] Respiratory 31 H 25 H 26 H Rate Blood Pressure 182/105 171/104 159/96 O2 Sat by Pulse 99 Oximetry 03/17/20 03/17/20 03/17/20 08:44 08:45 09:00 Temperature Pulse Rate 105 H 97 H 78 Pulse Rate [ From Monitor] Respiratory 24 25 H Rate Blood Pressure 156/87 156/87 129/63 O2 Sat by Pulse 96 96 Oximetry 03/17/20 03/17/20 03/17/20 09:15 09:30 09:45 Temperature Pulse Rate 66 63 61 Pulse Rate [ From Monitor] Respiratory 25 H 24 24 Rate Blood Pressure 118/61 121/64 130/73 O2 Sat by Pulse Oximetry 03/17/20 03/17/20 03/17/20 09:58 09:59 10:00 Temperature Pulse Rate 67 75 63 Pulse Rate [ From Monitor] Respiratory 16 Rate Blood Pressure 130/73 130/73 126/78 O2 Sat by Pulse Oximetry 03/17/20 03/17/20 03/17/20 10:16 10:30 10:46 Temperature Pulse Rate 59 L 55 L 62 Pulse Rate [ From Monitor] Respiratory 19 23 25 H Rate Blood Pressure 126/78 118/71 125/70 O2 Sat by Pulse 100 100 100 Oximetry 03/17/20 03/17/20 03/17/20 11:00 11:15 11:30 Temperature Pulse Rate 55 L 56 L 51 L Pulse Rate [ From Monitor] Respiratory 25 H 25 H 25 H Rate Blood Pressure 116/71 115/70 116/74 O2 Sat by Pulse 100 99 100 Oximetry 03/17/20 03/17/20 03/17/20 11:45 12:00 12:04 Temperature Pulse Rate 49 L 48 L 47 L Pulse Rate [ From Monitor] Respiratory 25 H 25 H Rate Blood Pressure 124/82 124/82 124/82 O2 Sat by Pulse 100 98 98 Oximetry 03/17/20 03/17/20 03/17/20 12:15 12:30 12:45 Temperature Pulse Rate 47 L 47 L 49 L Pulse Rate [ From Monitor] Respiratory 25 H 25 H 25 H Rate Blood Pressure 129/85 132/86 135/88 O2 Sat by Pulse 98 98 98 Oximetry 03/17/20 03/17/20 03/17/20 13:00 13:15 13:30 Temperature Pulse Rate 49 L 49 L 49 L Pulse Rate [ From Monitor] Respiratory 25 H 25 H 25 H Rate Blood Pressure 145/94 141/96 153/103 O2 Sat by Pulse 99 99 99 Oximetry 03/17/20 13:45 Temperature Pulse Rate 50 L Pulse Rate [ From Monitor] Respiratory 25 H Rate Blood Pressure 150/100 O2 Sat by Pulse 99 Oximetry Constitutional: no acute distress, other (young obese female with mildly increased respiratory effort at rest on MVS) Eyes: non-icteric ENT: oropharynx moist, other (orally intuabted, ETT 7.5 at 22cm ) Neck: supple, no lymphadenopathy, other (large circumference) Effort: mildly labored Ascultation: Bilateral: diminished breath sounds, rhonchi Percussion: Bilateral: not dull Cardiovascular: regular rate and rhythm, other (S1,S2) Gastrointestinal: normoactive bowel sounds, soft, non-distended, other (obese) Integumentary: rash Extremities: pulses normal, cool, edema Neurologic: non-focal exam (moves all extremities, holding onto the rails), pupils equal and round, unable to assess Psychiatric: other (unable to assess) CBC and BMP: 03/17/20 11:55 03/17/20 11:55 ABG, PT/INR, D-dimer: ABG ABG pH 7.444 (7.320-7.450) 03/17/20 11:55 POC ABG pCO2 44.6 mmHg (32.0-48.0) 03/17/20 11:55 ABG pCO2 44.2 mm Hg 03/14/20 06:15 POC ABG pO2 106.1 mmHg (83-108) 03/17/20 11:55 ABG pO2 92.8 mm Hg (80.0-90.0) H 03/14/20 06:15 POC ABG HCO3 29.9 03/17/20 11:55 ABG O2 Saturation 97.6 % (95.0-99.0) 03/14/20 06:15 PT/INR, D-dimer PT 13.7 Sec. (12.2-14.9) 03/09/20 08:27 INR 1.06 (0.87-1.13) 03/09/20 08:27 D-Dimer 1042.81 ng/mlDDU (0-234) H 03/09/20 08:27 Abnormal lab findings: Abnormal Labs 03/09/20 03/09/20 03/09/20 08:27 08:27 08:27 WBC 15.8 H RBC 5.43 H Hgb Hct MCH 24 L MCHC RDW 19.3 H Lymph % (Auto) Knott % (Auto) 8.2 H Knott # (Auto) 1.3 H Seg Neutrophils % 70.4 H Seg Neutrophils # 11.1 H D-Dimer ABG pH POC ABG pCO2 POC ABG pO2 ABG pO2 ABG HCO3 ABG Base Excess ABG Hemoglobin ABG Sodium ABG Potassium ABG Glucose Oxyhemoglobin Potassium Chloride 97.1 L Carbon Dioxide BUN 29 H Creatinine Glucose 178 H POC Glucose Hemoglobin A1c Lactic Acid 3.70 H* Total Bilirubin AST ALT Lactate Dehydrogenase 369 H C-Reactive Protein 3.00 H NT-Pro-B Natriuret Pep Total Protein Albumin Triglycerides Arterial Blood Glucose Arterial Blood Ionized Calcium Coronavirus (PCR) SARS-CoV-2 IgG Ab 03/09/20 03/09/20 03/09/20 08:27 08:27 08:27 WBC RBC Hgb Hct MCH MCHC RDW Lymph % (Auto) Knott % (Auto) Knott # (Auto) Seg Neutrophils % Seg Neutrophils # D-Dimer 1042.81 H ABG pH POC ABG pCO2 POC ABG pO2 ABG pO2 ABG HCO3 ABG Base Excess ABG Hemoglobin ABG Sodium ABG Potassium ABG Glucose Oxyhemoglobin Potassium Chloride Carbon Dioxide BUN Creatinine Glucose POC Glucose Hemoglobin A1c 8.0 H Lactic Acid Total Bilirubin AST ALT Lactate Dehydrogenase C-Reactive Protein NT-Pro-B Natriuret Pep 2914 H Total Protein Albumin Triglycerides Arterial Blood Glucose Arterial Blood Ionized Calcium Coronavirus (PCR) SARS-CoV-2 IgG Ab 03/09/20 03/09/20 03/10/20 08:43 23:04 05:23 WBC RBC Hgb Hct MCH MCHC RDW Lymph % (Auto) Knott % (Auto) Knott # (Auto) Seg Neutrophils % Seg Neutrophils # D-Dimer ABG pH POC ABG pCO2 POC ABG pO2 ABG pO2 ABG HCO3 ABG Base Excess ABG Hemoglobin ABG Sodium ABG Potassium ABG Glucose Oxyhemoglobin Potassium Chloride Carbon Dioxide BUN Creatinine Glucose POC Glucose 361 H Hemoglobin A1c Lactic Acid 6.80 H* Total Bilirubin AST ALT Lactate Dehydrogenase C-Reactive Protein NT-Pro-B Natriuret Pep Total Protein Albumin Triglycerides Arterial Blood Glucose Arterial Blood Ionized Calcium Coronavirus (PCR) Positive A SARS-CoV-2 IgG Ab 03/10/20 03/10/20 03/10/20 08:19 10:49 17:11 WBC RBC Hgb Hct MCH MCHC RDW Lymph % (Auto) Knott % (Auto) Knott # (Auto) Seg Neutrophils % Seg Neutrophils # D-Dimer ABG pH POC ABG pCO2 POC ABG pO2 ABG pO2 ABG HCO3 ABG Base Excess ABG Hemoglobin ABG Sodium ABG Potassium ABG Glucose Oxyhemoglobin Potassium Chloride Carbon Dioxide BUN Creatinine Glucose POC Glucose 371 H 423 H 373 H Hemoglobin A1c Lactic Acid Total Bilirubin AST ALT Lactate Dehydrogenase C-Reactive Protein NT-Pro-B Natriuret Pep Total Protein Albumin Triglycerides Arterial Blood Glucose Arterial Blood Ionized Calcium Coronavirus (PCR) SARS-CoV-2 IgG Ab 03/11/20 03/11/20 03/11/20 00:29 07:52 13:12 WBC RBC Hgb Hct MCH MCHC RDW Lymph % (Auto) Knott % (Auto) Knott # (Auto) Seg Neutrophils % Seg Neutrophils # D-Dimer ABG pH POC ABG pCO2 POC ABG pO2 ABG pO2 ABG HCO3 ABG Base Excess ABG Hemoglobin ABG Sodium ABG Potassium ABG Glucose Oxyhemoglobin Potassium Chloride Carbon Dioxide BUN Creatinine Glucose POC Glucose 242 H 233 H 352 H Hemoglobin A1c Lactic Acid Total Bilirubin AST ALT Lactate Dehydrogenase C-Reactive Protein NT-Pro-B Natriuret Pep Total Protein Albumin Triglycerides Arterial Blood Glucose Arterial Blood Ionized Calcium Coronavirus (PCR) SARS-CoV-2 IgG Ab 03/11/20 03/11/20 03/12/20 15:24 22:54 08:22 WBC RBC Hgb Hct MCH MCHC RDW Lymph % (Auto) Knott % (Auto) Knott # (Auto) Seg Neutrophils % Seg Neutrophils # D-Dimer ABG pH POC ABG pCO2 POC ABG pO2 ABG pO2 ABG HCO3 ABG Base Excess ABG Hemoglobin ABG Sodium ABG Potassium ABG Glucose Oxyhemoglobin Potassium Chloride Carbon Dioxide BUN Creatinine Glucose POC Glucose 386 H 418 H 431 H Hemoglobin A1c Lactic Acid Total Bilirubin AST ALT Lactate Dehydrogenase C-Reactive Protein NT-Pro-B Natriuret Pep Total Protein Albumin Triglycerides Arterial Blood Glucose Arterial Blood Ionized Calcium Coronavirus (PCR) SARS-CoV-2 IgG Ab 03/12/20 03/12/20 03/12/20 11:34 16:53 22:20 WBC RBC Hgb Hct MCH MCHC RDW Lymph % (Auto) Knott % (Auto) Knott # (Auto) Seg Neutrophils % Seg Neutrophils # D-Dimer ABG pH POC ABG pCO2 POC ABG pO2 ABG pO2 ABG HCO3 ABG Base Excess ABG Hemoglobin ABG Sodium ABG Potassium ABG Glucose Oxyhemoglobin Potassium Chloride Carbon Dioxide BUN Creatinine Glucose POC Glucose 310 H 358 H 295 H Hemoglobin A1c Lactic Acid Total Bilirubin AST ALT Lactate Dehydrogenase C-Reactive Protein NT-Pro-B Natriuret Pep Total Protein Albumin Triglycerides Arterial Blood Glucose Arterial Blood Ionized Calcium Coronavirus (PCR) SARS-CoV-2 IgG Ab 03/13/20 03/13/20 03/13/20 05:48 09:15 12:09 WBC 18.3 H RBC Hgb Hct MCH 24 L MCHC 29 L RDW 18.9 H Lymph % (Auto) 7.8 L Knott % (Auto) 9.7 H Knott # (Auto) 1.8 H Seg Neutrophils % 82.0 H Seg Neutrophils # 15.0 H D-Dimer ABG pH 7.327 L POC ABG pCO2 POC ABG pO2 ABG pO2 73.0 L ABG HCO3 39.3 H ABG Base Excess 10.8 H ABG Hemoglobin 11.2 L ABG Sodium ABG Potassium ABG Glucose Oxyhemoglobin 93.4 L Potassium Chloride Carbon Dioxide BUN Creatinine Glucose POC Glucose 216 H Hemoglobin A1c Lactic Acid Total Bilirubin AST ALT Lactate Dehydrogenase C-Reactive Protein NT-Pro-B Natriuret Pep Total Protein Albumin Triglycerides Arterial Blood Glucose Arterial Blood Ionized Calcium Coronavirus (PCR) SARS-CoV-2 IgG Ab 03/13/20 03/13/20 03/13/20 12:09 12:11 17:23 WBC RBC Hgb Hct MCH MCHC RDW Lymph % (Auto) Knott % (Auto) Knott # (Auto) Seg Neutrophils % Seg Neutrophils # D-Dimer ABG pH POC ABG pCO2 POC ABG pO2 ABG pO2 ABG HCO3 ABG Base Excess ABG Hemoglobin ABG Sodium ABG Potassium ABG Glucose Oxyhemoglobin Potassium 5.1 H Chloride Carbon Dioxide 37 H D BUN Creatinine Glucose 154 H POC Glucose 148 H 217 H Hemoglobin A1c Lactic Acid Total Bilirubin AST 47 H ALT 128 H Lactate Dehydrogenase C-Reactive Protein NT-Pro-B Natriuret Pep Total Protein 5.9 L Albumin 3.0 L Triglycerides Arterial Blood Glucose Arterial Blood Ionized Calcium Coronavirus (PCR) SARS-CoV-2 IgG Ab 03/14/20 03/14/20 03/14/20 06:15 06:55 09:17 WBC 14.9 H RBC Hgb Hct MCH 25 L MCHC RDW 19.1 H Lymph % (Auto) 9.5 L Knott % (Auto) Knott # (Auto) 0.9 H Seg Neutrophils % 83.8 H Seg Neutrophils # 12.5 H D-Dimer ABG pH 7.544 H POC ABG pCO2 POC ABG pO2 ABG pO2 92.8 H ABG HCO3 37.3 H ABG Base Excess 13.5 H ABG Hemoglobin 10.5 L ABG Sodium ABG Potassium ABG Glucose Oxyhemoglobin Potassium Chloride Carbon Dioxide BUN Creatinine Glucose POC Glucose 182 H Hemoglobin A1c Lactic Acid Total Bilirubin AST ALT Lactate Dehydrogenase C-Reactive Protein NT-Pro-B Natriuret Pep Total Protein Albumin Triglycerides Arterial Blood Glucose Arterial Blood Ionized Calcium Coronavirus (PCR) SARS-CoV-2 IgG Ab 03/14/20 03/14/20 03/14/20 09:17 11:43 17:47 WBC RBC Hgb Hct MCH MCHC RDW Lymph % (Auto) Knott % (Auto) Knott # (Auto) Seg Neutrophils % Seg Neutrophils # D-Dimer ABG pH POC ABG pCO2 POC ABG pO2 ABG pO2 ABG HCO3 ABG Base Excess ABG Hemoglobin ABG Sodium ABG Potassium ABG Glucose Oxyhemoglobin Potassium Chloride Carbon Dioxide 34 H BUN Creatinine 0.5 L Glucose 204 H POC Glucose 283 H 254 H Hemoglobin A1c Lactic Acid Total Bilirubin 2.60 H AST 82 H ALT 152 H Lactate Dehydrogenase C-Reactive Protein NT-Pro-B Natriuret Pep Total Protein 5.7 L Albumin 3.0 L Triglycerides Arterial Blood Glucose Arterial Blood Ionized Calcium Coronavirus (PCR) SARS-CoV-2 IgG Ab 03/14/20 03/15/20 03/15/20 23:59 03:08 05:52 WBC RBC Hgb Hct MCH MCHC RDW Lymph % (Auto) Knott % (Auto) Knott # (Auto) Seg Neutrophils % Seg Neutrophils # D-Dimer ABG pH 7.536 H POC ABG pCO2 POC ABG pO2 ABG pO2 ABG HCO3 ABG Base Excess ABG Hemoglobin 10.7 L ABG Sodium 135.2 L ABG Potassium ABG Glucose 317 H Oxyhemoglobin Potassium Chloride Carbon Dioxide BUN Creatinine Glucose POC Glucose 293 H 293 H Hemoglobin A1c Lactic Acid Total Bilirubin AST ALT Lactate Dehydrogenase C-Reactive Protein NT-Pro-B Natriuret Pep Total Protein Albumin Triglycerides Arterial Blood Glucose 317 H Arterial Blood Ionized Calcium 4.5 L Coronavirus (PCR) SARS-CoV-2 IgG Ab 03/15/20 03/15/20 03/15/20 13:29 17:43 23:26 WBC RBC Hgb Hct MCH MCHC RDW Lymph % (Auto) Knott % (Auto) Knott # (Auto) Seg Neutrophils % Seg Neutrophils # D-Dimer ABG pH POC ABG pCO2 POC ABG pO2 ABG pO2 ABG HCO3 ABG Base Excess ABG Hemoglobin ABG Sodium ABG Potassium ABG Glucose Oxyhemoglobin Potassium Chloride Carbon Dioxide BUN Creatinine Glucose POC Glucose 299 H 327 H 325 H Hemoglobin A1c Lactic Acid Total Bilirubin AST ALT Lactate Dehydrogenase C-Reactive Protein NT-Pro-B Natriuret Pep Total Protein Albumin Triglycerides Arterial Blood Glucose Arterial Blood Ionized Calcium Coronavirus (PCR) SARS-CoV-2 IgG Ab 03/16/20 03/16/20 03/16/20 01:28 04:44 05:26 WBC RBC Hgb Hct MCH MCHC RDW Lymph % (Auto) Knott % (Auto) Knott # (Auto) Seg Neutrophils % Seg Neutrophils # D-Dimer ABG pH 7.540 H POC ABG pCO2 POC ABG pO2 ABG pO2 ABG HCO3 ABG Base Excess ABG Hemoglobin 10.5 L ABG Sodium ABG Potassium ABG Glucose 312 H Oxyhemoglobin Potassium Chloride Carbon Dioxide BUN 18 H Creatinine Glucose 330 H POC Glucose 264 H Hemoglobin A1c Lactic Acid Total Bilirubin AST ALT Lactate Dehydrogenase C-Reactive Protein NT-Pro-B Natriuret Pep Total Protein Albumin Triglycerides Arterial Blood Glucose 312 H Arterial Blood Ionized Calcium Coronavirus (PCR) SARS-CoV-2 IgG Ab 03/16/20 03/16/20 03/16/20 11:58 17:51 17:54 WBC RBC Hgb Hct MCH MCHC RDW Lymph % (Auto) Knott % (Auto) Knott # (Auto) Seg Neutrophils % Seg Neutrophils # D-Dimer ABG pH POC ABG pCO2 58.9 H POC ABG pO2 142.4 H ABG pO2 ABG HCO3 ABG Base Excess ABG Hemoglobin 11.6 L ABG Sodium 135.9 L ABG Potassium 4.9 H ABG Glucose 332 H Oxyhemoglobin Potassium Chloride Carbon Dioxide BUN Creatinine Glucose POC Glucose 196 H 285 H Hemoglobin A1c Lactic Acid Total Bilirubin AST ALT Lactate Dehydrogenase C-Reactive Protein NT-Pro-B Natriuret Pep Total Protein Albumin Triglycerides Arterial Blood Glucose 332 H Arterial Blood Ionized Calcium Coronavirus (PCR) SARS-CoV-2 IgG Ab 03/16/20 03/16/20 03/17/20 17:56 23:43 03:13 WBC RBC Hgb Hct MCH MCHC RDW Lymph % (Auto) Knott % (Auto) Knott # (Auto) Seg Neutrophils % Seg Neutrophils # D-Dimer ABG pH POC ABG pCO2 POC ABG pO2 ABG pO2 ABG HCO3 ABG Base Excess ABG Hemoglobin ABG Sodium ABG Potassium ABG Glucose Oxyhemoglobin Potassium Chloride Carbon Dioxide BUN Creatinine Glucose POC Glucose 258 H Hemoglobin A1c Lactic Acid Total Bilirubin AST ALT Lactate Dehydrogenase C-Reactive Protein NT-Pro-B Natriuret Pep Total Protein Albumin Triglycerides 252 H Arterial Blood Glucose Arterial Blood Ionized Calcium Coronavirus (PCR) SARS-CoV-2 IgG Ab Reactive A 03/17/20 03/17/20 03/17/20 05:33 11:12 11:55 WBC RBC Hgb 9.2 L Hct 29.7 L MCH 25 L MCHC RDW 19.9 H Lymph % (Auto) Knott % (Auto) Knott # (Auto) Seg Neutrophils % Seg Neutrophils # D-Dimer ABG pH POC ABG pCO2 POC ABG pO2 ABG pO2 ABG HCO3 ABG Base Excess ABG Hemoglobin ABG Sodium ABG Potassium ABG Glucose Oxyhemoglobin Potassium Chloride Carbon Dioxide BUN Creatinine Glucose POC Glucose 157 H 112 H Hemoglobin A1c Lactic Acid Total Bilirubin AST ALT Lactate Dehydrogenase C-Reactive Protein NT-Pro-B Natriuret Pep Total Protein Albumin Triglycerides Arterial Blood Glucose Arterial Blood Ionized Calcium Coronavirus (PCR) SARS-CoV-2 IgG Ab 03/17/20 03/17/20 11:55 11:55 WBC RBC Hgb Hct MCH MCHC RDW Lymph % (Auto) Knott % (Auto) Knott # (Auto) Seg Neutrophils % Seg Neutrophils # D-Dimer ABG pH POC ABG pCO2 POC ABG pO2 ABG pO2 ABG HCO3 ABG Base Excess ABG Hemoglobin 10.2 L ABG Sodium ABG Potassium ABG Glucose 137 H Oxyhemoglobin Potassium Chloride Carbon Dioxide BUN 21 H Creatinine 0.5 L Glucose 118 H POC Glucose Hemoglobin A1c Lactic Acid Total Bilirubin AST ALT Lactate Dehydrogenase C-Reactive Protein NT-Pro-B Natriuret Pep Total Protein Albumin Triglycerides Arterial Blood Glucose 137 H Arterial Blood Ionized Calcium Coronavirus (PCR) SARS-CoV-2 IgG Ab Chest x-ray: other (overpenetrated; ETT appears in good position; cardiomegaly) Allied health notes reviewed: nursing
[2020-03-17] MEDS: QUEtiapine 100 MG TAB PO SCH ×2 (14:45→22:57)
--- NOTE | 2020-03-17 15:14 | Progress Note ---
Assessment and Plan Cultures: Blood culture 03/09/2020 pending Urine culture 03/09/2020 pending Tracheal aspirate culture 03/13/2020 staph aureus A/P: 29-year-old female past medical history morbid obesity, obesity hypoventilation syndrome, diabetes admitted with shortness of breath #COVID-19 pneumonia: Diagnosed over 2 weeks ago, as such not a candidate for remdesivir. Given that her ferritin is normal, less likely to be in cytokine storm. Procalcitonin slightly elevated at 0.3 #Acute hypoxemic respiratory failure: Likely secondary to COVID-19 infection versus CHF versus bacterial pneumonia. Currently on intubated #Diabetes: tight glycemic control for best outcomes. #Morbid obesity: Associated with worse outcomes, recommend diet modifications Recs: -Stop cefepime -Continue vancomycin to complete 7 days. Thank you for the consult, we will continue to follow. Freida Koch MD [facility] ([facility]) O: [phone] F: [phone] Subjective Date of service: 03/17/20 Principal diagnosis: Cardiac arrest; Ac. hypoxemic resp failure; COVID 19 infxn; Pulm HTN; OHS Interval history: Afebrile, normal white count. Sputum culture with MRSA, rare growth with minimal white cells on culture. Procalcitonin normal. Remains intubated. Imaging personally reviewed: Chest x-ray: Unchanged. Objective - Exam Narrative Exam: Physical exam deferred due to PPE conservation strategy. Please refer to primary team's note. - Constitutional Vitals: Vital Signs Temp Pulse Resp BP Pulse Ox 99.0 F 50 L 25 H 150/100 99 03/17/20 04:00 03/17/20 13:45 03/17/20 13:45 03/17/20 13:45 03/17/20 13:45 Temperature -Last 24 Hours Temperature 99.0 F Temperature 98.9 F Temperature 99.6 F Temperature 98.6 F - Labs CBC & Chem 7: 03/17/20 11:55 03/17/20 11:55 Labs: Abnormal lab results 03/16/20 03/16/20 03/16/20 Range/Units 17:51 17:54 17:56 Hgb (10.1-14.3) gm/dl Hct (30.3-42.9) % MCH (28-32) pg RDW (13.2-15.2) % POC ABG pCO2 58.9 H (32.0-48.0) mmHg POC ABG pO2 142.4 H (83-108) mmHg ABG Hemoglobin 11.6 L (12.0-17.5) ABG Sodium 135.9 L (136.0-145.0) mmol/L ABG Potassium 4.9 H (3.40-4.50) mmol/L ABG Glucose 332 H (65-95) mg/dL BUN (7-17) mg/dL Creatinine (0.6-1.2) mg/dL Glucose (65-100) mg/dL POC Glucose 285 H (70-105) mg/dL Triglycerides (2-149) mg/dL Arterial Blood Glucose 332 H (65-95) mg/dL SARS-CoV-2 IgG Ab Reactive A (NonReactive) 03/16/20 03/17/20 03/17/20 Range/Units 23:43 03:13 05:33 Hgb (10.1-14.3) gm/dl Hct (30.3-42.9) % MCH (28-32) pg RDW (13.2-15.2) % POC ABG pCO2 (32.0-48.0) mmHg POC ABG pO2 (83-108) mmHg ABG Hemoglobin (12.0-17.5) ABG Sodium (136.0-145.0) mmol/L ABG Potassium (3.40-4.50) mmol/L ABG Glucose (65-95) mg/dL BUN (7-17) mg/dL Creatinine (0.6-1.2) mg/dL Glucose (65-100) mg/dL POC Glucose 258 H 157 H (70-105) mg/dL Triglycerides 252 H (2-149) mg/dL Arterial Blood Glucose (65-95) mg/dL SARS-CoV-2 IgG Ab (NonReactive) 03/17/20 03/17/20 03/17/20 Range/Units 11:12 11:55 11:55 Hgb 9.2 L (10.1-14.3) gm/dl Hct 29.7 L (30.3-42.9) % MCH 25 L (28-32) pg RDW 19.9 H (13.2-15.2) % POC ABG pCO2 (32.0-48.0) mmHg POC ABG pO2 (83-108) mmHg ABG Hemoglobin (12.0-17.5) ABG Sodium (136.0-145.0) mmol/L ABG Potassium (3.40-4.50) mmol/L ABG Glucose (65-95) mg/dL BUN 21 H (7-17) mg/dL Creatinine 0.5 L (0.6-1.2) mg/dL Glucose 118 H (65-100) mg/dL POC Glucose 112 H (70-105) mg/dL Triglycerides (2-149) mg/dL Arterial Blood Glucose (65-95) mg/dL SARS-CoV-2 IgG Ab (NonReactive) 03/17/20 Range/Units 11:55 Hgb (10.1-14.3) gm/dl Hct (30.3-42.9) % MCH (28-32) pg RDW (13.2-15.2) % POC ABG pCO2 (32.0-48.0) mmHg POC ABG pO2 (83-108) mmHg ABG Hemoglobin 10.2 L (12.0-17.5) ABG Sodium (136.0-145.0) mmol/L ABG Potassium (3.40-4.50) mmol/L ABG Glucose 137 H (65-95) mg/dL BUN (7-17) mg/dL Creatinine (0.6-1.2) mg/dL Glucose (65-100) mg/dL POC Glucose (70-105) mg/dL Triglycerides (2-149) mg/dL Arterial Blood Glucose 137 H (65-95) mg/dL SARS-CoV-2 IgG Ab (NonReactive)
[2020-03-17] MEDS: MIDAZOLAM 2 MG/2 ML INJ IV PRN ×3 (18:27→22:53)
--- NOTE | 2020-03-17 19:26 | Progress Note ---
Assessment and Plan --Acute respiratory failure due to COVID-19 and staph PNA patient now intubated since 03/13 following a cardiac arrest Critical care following, continue scheduled breathing treatment, IV steroid Wean off from vent as tolerated --Status post cardiac arrest on 03/13 Patient currently intubated, 2D echo showed preserved EF with right ventricular pressure 68 --Novel Coronavirus infection Coronavirus protocol: Infectious disease service consulted, contact precautions, isolation precaution, steroid therapy, follow inflammatory markers Diagnosed over 2 weeks ago, as such not a candidate for remdesivir. Given that her ferritin is normal, less likely to be in cytokine storm. -Patient also positive for COVID-19 antibody -no scope for convalescent plasma therapy -- Pneumonia with MRSA and COVID Pneumonia protocol: Supplemental oxygen, IV antibiotic therapy, pulse oximetry, blood culture. -s/p cefepime 2 g every 8 hours given elevated white count, lactic acid and procalcitonin -Continue vancomycin as sputum culture growing MRSA for 7 days -Patient was diagnosed with COVID-19 2 weeks ago- not a candidate for remdesivir --Sepsis, due to COVID-19 and MRSA pneumonia Likely present on admission, continue antibiotics, follow inflammatory markers -- Hypertension Monitor blood pressure every shift, continue medical management -- Diabetes type 2 Tube feeding diet, sliding scale insulin therapy, Accu-Chek, hypoglycemia protocol -- Obesity hypoventilation syndrome BMI 78.7, monitor weight pulse oximetry, nebulizer therapy, supplemental oxygen, patient now intubated outpatient pulmonary follow-up for sleep study when clinically stable, need recommendation on balanced diet, increase physical activity at discharge -- Pulmonary hypertension Supportive care, outpatient pulmonology follow-up for sleep study. And also need evaluation for vasodilator therapy. -- DVT prophylaxis SCD to bilateral lower extremities while in bed, prophylactic anticoagulation. The high probability of a clinically significant, sudden or life threatening deterioration of the [pulmonary, cardiac, renal, neuro] system(s) required my full and direct attention, intervention and personal management. The aggregate critical care time was [90] minutes. This time is in addition to time spent performing reported procedures but includes the following: [x] Data Review and interpretation [x] Patient assessment and monitoring of vital signs [x] Documentation [x] Medication orders and management Brief history: 29-year-old female past medical history morbid obesity, obesity hypoventilation syndrome, diabetes admitted with shortness of breath. Patient is positive for COVID-19 diagnosed 2 weeks ago, patient currently intubated following a cardiac arrest on 03/13/20. ID following and critical care following. Sputum culture is positive for staph aureus. 03/16: cont iv abx, follow pending sputum Cx. wean off vent as tolerated 03/17: Sputum culture positive for MRSA, stop cefepime continue on vancomycin for 7 days per ID recommendation. Wean off vent as tolerated, continue tube feeding Subjective Date of service: 03/17/20 Principal diagnosis: Cardiac arrest; Ac. hypoxemic resp failure; COVID 19 infxn; Pulm HTN; OHS Interval history: Patient seen and examined Patient currently intubated with mechanical ventilation Patient also sedated and restrained Discussed with RN at the bedside No acute overnight event Sputum culture positive for MRSA Objective - Exam Narrative Exam: GENERAL: well-developed morbidly obese -Citizen Of The [place] female lying on bed intubated and sedated. HEENT: Normocephalic. Atraumatic. No conjunctival congestion or icterus. Patient has moist mucous membranes. NECK: Supple. Trachea midline. ET tube in place CHEST/LUNGS: Diminished breath sound auscultated bilaterally, mechanically ventilated HEART/CARDIOVASCULAR: Tachycardic. S1 and S2 positive. ABDOMEN: Abdomen is soft, nontender. Patient has normal bowel sounds. SKIN: There is no rash. Warm and dry. NEURO: Sedated MUSCULOSKELETAL: No joint effusion or tenderness. EXTRIMITY: No edema, no cyanosis or clubbing. PSYCH: Sedated. - Constitutional Vitals: Vital Signs - 12hr 03/17/20 03/17/20 03/17/20 07:30 07:46 08:00 Temperature 98.8 F Pulse Rate 129 H 138 H 128 H Pulse Rate [ 128 H From Monitor] Respiratory 18 23 25 H Rate Blood Pressure 219/123 219/123 182/105 O2 Sat by Pulse 99 Oximetry 03/17/20 03/17/20 03/17/20 08:15 08:30 08:44 Temperature Pulse Rate 117 H 109 H 105 H Pulse Rate [ From Monitor] Respiratory 25 H 26 H Rate Blood Pressure 171/104 159/96 156/87 O2 Sat by Pulse 99 96 Oximetry 03/17/20 03/17/20 03/17/20 08:45 09:00 09:15 Temperature Pulse Rate 97 H 78 66 Pulse Rate [ From Monitor] Respiratory 24 25 H 25 H Rate Blood Pressure 156/87 129/63 118/61 O2 Sat by Pulse 96 Oximetry 03/17/20 03/17/20 03/17/20 09:30 09:45 09:58 Temperature Pulse Rate 63 61 67 Pulse Rate [ From Monitor] Respiratory 24 24 Rate Blood Pressure 121/64 130/73 130/73 O2 Sat by Pulse Oximetry 03/17/20 03/17/20 03/17/20 09:59 10:00 10:16 Temperature Pulse Rate 75 63 59 L Pulse Rate [ From Monitor] Respiratory 16 19 Rate Blood Pressure 130/73 126/78 126/78 O2 Sat by Pulse 100 Oximetry 03/17/20 03/17/20 03/17/20 10:30 10:46 11:00 Temperature Pulse Rate 55 L 62 55 L Pulse Rate [ From Monitor] Respiratory 23 25 H 25 H Rate Blood Pressure 118/71 125/70 116/71 O2 Sat by Pulse 100 100 100 Oximetry 03/17/20 03/17/20 03/17/20 11:15 11:30 11:45 Temperature Pulse Rate 56 L 51 L 49 L Pulse Rate [ From Monitor] Respiratory 25 H 25 H 25 H Rate Blood Pressure 115/70 116/74 124/82 O2 Sat by Pulse 99 100 100 Oximetry 03/17/20 03/17/20 03/17/20 12:00 12:04 12:15 Temperature 99.0 F Pulse Rate 62 47 L 47 L Pulse Rate [ 62 From Monitor] Respiratory 26 H 25 H Rate Blood Pressure 124/82 124/82 129/85 O2 Sat by Pulse 99 98 98 Oximetry 03/17/20 03/17/20 03/17/20 12:30 12:45 13:00 Temperature Pulse Rate 47 L 49 L 49 L Pulse Rate [ From Monitor] Respiratory 25 H 25 H 25 H Rate Blood Pressure 132/86 135/88 145/94 O2 Sat by Pulse 98 98 99 Oximetry 03/17/20 03/17/20 03/17/20 13:15 13:30 13:45 Temperature Pulse Rate 49 L 49 L 50 L Pulse Rate [ From Monitor] Respiratory 25 H 25 H 25 H Rate Blood Pressure 141/96 153/103 150/100 O2 Sat by Pulse 99 99 99 Oximetry 12/02/20 12/02/20 12/02/20 14:00 14:15 14:30 Temperature Pulse Rate 50 L 56 L 51 L Pulse Rate [ From Monitor] Respiratory 25 H 25 H 25 H Rate Blood Pressure 150/98 157/103 144/95 O2 Sat by Pulse 99 100 100 Oximetry 03/17/20 03/17/20 03/17/20 14:45 15:00 15:15 Temperature Pulse Rate 51 L 53 L 73 Pulse Rate [ From Monitor] Respiratory 25 H 25 H 25 H Rate Blood Pressure 152/95 139/89 138/93 O2 Sat by Pulse 100 100 94 Oximetry 03/17/20 03/17/20 03/17/20 15:30 15:45 15:59 Temperature Pulse Rate 57 L 55 L Pulse Rate [ 54 L From Monitor] Respiratory 25 H 25 H 25 H Rate Blood Pressure 139/86 143/85 O2 Sat by Pulse 98 97 100 Oximetry 03/17/20 03/17/20 03/17/20 16:00 16:15 16:30 Temperature 98.3 F Pulse Rate 53 L 50 L 54 L Pulse Rate [ From Monitor] Respiratory 25 H 25 H 25 H Rate Blood Pressure 150/93 142/86 146/85 O2 Sat by Pulse 98 98 Oximetry 03/17/20 03/17/20 03/17/20 16:46 16:51 17:00 Temperature Pulse Rate 54 L 50 L 49 L Pulse Rate [ From Monitor] Respiratory 25 H 25 H Rate Blood Pressure 147/88 147/88 145/91 O2 Sat by Pulse 96 98 98 Oximetry 03/17/20 03/17/20 03/17/20 17:15 17:30 17:45 Temperature Pulse Rate 51 L 51 L 50 L Pulse Rate [ From Monitor] Respiratory 25 H 25 H 25 H Rate Blood Pressure 150/92 147/91 148/93 O2 Sat by Pulse 98 98 98 Oximetry 03/17/20 03/17/20 03/17/20 18:00 18:16 18:30 Temperature Pulse Rate 52 L 56 L 54 L Pulse Rate [ From Monitor] Respiratory 25 H 25 H 25 H Rate Blood Pressure 155/98 149/88 159/87 O2 Sat by Pulse 98 96 99 Oximetry - Labs CBC & Chem 7: 03/17/20 11:55 03/17/20 11:55 Labs: Abnormal lab results 03/16/20 03/16/20 03/17/20 Range/Units 17:54 23:43 03:13 Hgb (10.1-14.3) gm/dl Hct (30.3-42.9) % MCH (28-32) pg RDW (13.2-15.2) % POC ABG pCO2 58.9 H (32.0-48.0) mmHg POC ABG pO2 142.4 H (83-108) mmHg ABG Hemoglobin 11.6 L (12.0-17.5) ABG Sodium 135.9 L (136.0-145.0) mmol/L ABG Potassium 4.9 H (3.40-4.50) mmol/L ABG Glucose 332 H (65-95) mg/dL BUN (7-17) mg/dL Creatinine (0.6-1.2) mg/dL Glucose (65-100) mg/dL POC Glucose 258 H (70-105) mg/dL Triglycerides 252 H (2-149) mg/dL Arterial Blood Glucose 332 H (65-95) mg/dL 03/17/20 03/17/20 03/17/20 Range/Units 05:33 11:12 11:55 Hgb 9.2 L (10.1-14.3) gm/dl Hct 29.7 L (30.3-42.9) % MCH 25 L (28-32) pg RDW 19.9 H (13.2-15.2) % POC ABG pCO2 (32.0-48.0) mmHg POC ABG pO2 (83-108) mmHg ABG Hemoglobin (12.0-17.5) ABG Sodium (136.0-145.0) mmol/L ABG Potassium (3.40-4.50) mmol/L ABG Glucose (65-95) mg/dL BUN (7-17) mg/dL Creatinine (0.6-1.2) mg/dL Glucose (65-100) mg/dL POC Glucose 157 H 112 H (70-105) mg/dL Triglycerides (2-149) mg/dL Arterial Blood Glucose (65-95) mg/dL 03/17/20 03/17/20 03/17/20 Range/Units 11:55 11:55 17:20 Hgb (10.1-14.3) gm/dl Hct (30.3-42.9) % MCH (28-32) pg RDW (13.2-15.2) % POC ABG pCO2 (32.0-48.0) mmHg POC ABG pO2 (83-108) mmHg ABG Hemoglobin 10.2 L (12.0-17.5) ABG Sodium (136.0-145.0) mmol/L ABG Potassium (3.40-4.50) mmol/L ABG Glucose 137 H (65-95) mg/dL BUN 21 H (7-17) mg/dL Creatinine 0.5 L (0.6-1.2) mg/dL Glucose 118 H (65-100) mg/dL POC Glucose 178 H (70-105) mg/dL Triglycerides (2-149) mg/dL Arterial Blood Glucose 137 H (65-95) mg/dL HEART Score - HEART Score Troponin: Troponin T 0.017 ng/mL (0.00-0.029) 03/14/20 09:17
[2020-03-17] MEDS: fentaNYL 100 MCG/2 ML INJ IV PRN (20:23)
[2020-03-17] MEDS ORDERED: QUEtiapine 50 MG, QUEtiapine 100 MG PO SCH (22:00)
[2020-03-17] MEDS: INSULIN GLARGINE 100 UNITS/ML SUB-Q SCH (22:54)
[2020-03-17] MEDS: SERTRALINE 50 MG TAB PO SCH (22:55)
[2020-03-18] MEDS: fentaNYL DRIP Premix 2,000 MCG/100 ML BAG IV SCH ×8 (00:11→22:13)
[2020-03-18] MEDS: VANCOMYCIN 2,000 MG in SODIUM CHLORIDE 0.9% 500 ML 500 ML IV SCH ×2 (02:58→15:01)
[2020-03-18] MEDS: INSULIN LISPRO 100 UNIT/ML VIAL 3 mL SUB-Q SCH ×4 (06:34→18:38)
[2020-03-18] MEDS: MIDAZOLAM 2 MG/2 ML INJ IV PRN ×2 (09:30→09:46)
[2020-03-18] MEDS: SERTRALINE 50 MG TAB PO SCH (09:41)
[2020-03-18] MEDS: SENNOSIDES/DOCUSATE SODIUM 8.6/50 MG TAB PO SCH ×2 (09:41→22:15)
[2020-03-18] MEDS: QUEtiapine 100 MG TAB PO SCH ×2 (09:41→22:17)
[2020-03-18] MEDS: amLODIPine 10 MG TAB PO SCH (09:43)
[2020-03-18] MEDS: LOSARTAN 50 MG TAB PO SCH (09:43)
[2020-03-18] MEDS: LANSOPRAZOLE 30 MG SOLUTAB FEEDTUBE SCH (09:43)
[2020-03-18] MEDS: POLYETHYLENE GLYCOL 3350 17 GM POWDER PO SCH (09:44)
[2020-03-18] MEDS: HEPARIN 5,000 UNIT/1 ML VIAL SUB-Q SCH ×2 (09:45→22:14)
[2020-03-18] MEDS: DEXAMETHASONE 4 MG TAB PO SCH (10:04)
--- NOTE | 2020-03-18 11:33 | XRay Report ---
XR chest 1V ap INDICATION / CLINICAL INFORMATION: follow up respiratory failure. COMPARISON: 03/17/2020 FINDINGS: SUPPORT DEVICES: Unchanged. HEART /PULMONARY VASCULATURE: Unchanged. LUNGS / PLEURA: Patchy bilateral airspace opacities are mildly improved. No pneumothorax. ADDITIONAL FINDINGS: No significant additional findings. IMPRESSION: CHF/volume overload with mildly improved pulmonary edema. Signer Name: Bobby Harrell MD Signed: 03/18/2020 11:29 AM Workstation Name: [id number]
--- NOTE | 2020-03-18 12:02 | Progress Note ---
Assessment and Plan Cultures: Blood culture 03/09/2020 pending Urine culture 03/09/2020 pending Tracheal aspirate culture 03/13/2020 staph aureus A/P: 29-year-old female past medical history morbid obesity, obesity hypoventilation syndrome, diabetes admitted with shortness of breath #COVID-19 pneumonia: Diagnosed over 2 weeks ago, as such not a candidate for remdesivir. Given that her ferritin is normal, less likely to be in cytokine storm. Procalcitonin slightly elevated at 0.3 #Acute hypoxemic respiratory failure: Likely secondary to COVID-19 infection versus CHF versus bacterial pneumonia. Currently on intubated #Diabetes: tight glycemic control for best outcomes. #Morbid obesity: Associated with worse outcomes, recommend diet modifications #CHF: acute volume overload Recs: -Continue vancomycin to complete 7 days. Thank you for the consult, we will continue to follow. Freida Koch MD [facility] ([facility]) O: [phone] F: [phone] Subjective Date of service: 03/18/20 Principal diagnosis: Cardiac arrest; Ac. hypoxemic resp failure; COVID 19 infxn; Pulm HTN; OHS Interval history: Afebrile, normal white count. Remains intubated. Imaging personally reviewed: Chest x-ray: Ongoing CHF Objective - Exam Narrative Exam: Physical exam deferred due to PPE conservation strategy. Please refer to primary team's note. - Constitutional Vitals: Vital Signs Temp Pulse Resp BP Pulse Ox 99.9 F H 107 H 21 177/87 94 03/18/20 08:00 03/18/20 11:00 03/18/20 11:00 03/18/20 11:00 03/18/20 11:00 Temperature -Last 24 Hours Temperature 99.9 F Temperature 99.0 F Temperature 98.8 F Temperature 98.9 F Temperature 98.3 F - Labs CBC & Chem 7: 03/17/20 11:55 03/17/20 11:55 Labs: Abnormal lab results 03/17/20 03/17/20 03/17/20 Range/Units 11:55 11:55 17:20 Hgb 9.2 L (10.1-14.3) gm/dl Hct 29.7 L (30.3-42.9) % MCH 25 L (28-32) pg RDW 19.9 H (13.2-15.2) % ABG pH (7.320-7.450) POC ABG pCO2 (32.0-48.0) mmHg POC ABG pO2 (83-108) mmHg ABG Hemoglobin (12.0-17.5) ABG Sodium (136.0-145.0) mmol/L ABG Glucose (65-95) mg/dL BUN 21 H (7-17) mg/dL Creatinine 0.5 L (0.6-1.2) mg/dL Glucose 118 H (65-100) mg/dL POC Glucose 178 H (70-105) mg/dL Arterial Blood Glucose (65-95) mg/dL 03/18/20 03/18/20 03/18/20 Range/Units 00:16 03:33 05:48 Hgb (10.1-14.3) gm/dl Hct (30.3-42.9) % MCH (28-32) pg RDW (13.2-15.2) % ABG pH 7.568 H (7.320-7.450) POC ABG pCO2 30.6 L (32.0-48.0) mmHg POC ABG pO2 167.6 H (83-108) mmHg ABG Hemoglobin 10.9 L (12.0-17.5) ABG Sodium 133.8 L (136.0-145.0) mmol/L ABG Glucose 125 H (65-95) mg/dL BUN (7-17) mg/dL Creatinine (0.6-1.2) mg/dL Glucose (65-100) mg/dL POC Glucose 119 H 114 H (70-105) mg/dL Arterial Blood Glucose 125 H (65-95) mg/dL 03/18/20 Range/Units 11:46 Hgb (10.1-14.3) gm/dl Hct (30.3-42.9) % MCH (28-32) pg RDW (13.2-15.2) % ABG pH (7.320-7.450) POC ABG pCO2 (32.0-48.0) mmHg POC ABG pO2 (83-108) mmHg ABG Hemoglobin (12.0-17.5) ABG Sodium (136.0-145.0) mmol/L ABG Glucose (65-95) mg/dL BUN (7-17) mg/dL Creatinine (0.6-1.2) mg/dL Glucose (65-100) mg/dL POC Glucose 165 H (70-105) mg/dL Arterial Blood Glucose (65-95) mg/dL
--- NOTE | 2020-03-18 14:34 | Progress Note ---
Assessment and Plan Cardiopulmoanry arrest with ROSC Acute hypoxemic respiratory failure on MVS COVID Extreme obesity Pulmonary HTN Obesity hypoventilation syndrome - reduce set rate to 12/min - QT interval WNL - resume Propofol drop now re: dyssynchrony - get CTA chest - continue Risperdal and Geodon - increase Seroquel 300 mg BID if QT not significantly elevated - no PICC line in place - keep peep at 10 for now - continue care as below otherwise; - continue bowel regimen - adjust Geodon dose based on response - prn gentle diuresis; monitor output and follow renal function/electrolytes - contact and airborne isolation per facility protocols for COVID - Daily SAT's and SBT assessment as tolerated - continue accuchecks with glycemic control per SSI (While critically ill target blood glucose of 140-180 mg/dL; avoid hypoglycemia) - sedation prn for target RASS -1 to -2 - continue to wean supplemental oxygen for target O2 sat's > 92% acutely - VAP bundle addressed - continue lung protective strategies - continue bronchodilators with pulmonary hygiene per RT - wean per pulmonary driven protocols otherwise - Varela catheter in this critically ill patient - Conservative fluid management - avoid nephrotoxins, renally dose all medications - Empiric antibiotics to include HAP coverage (on Vanc and Cefepime); adjust per ID recommendations and clinical response - prn analgesia per CPOT score - Maintenance of sleep-wake cycle, avoid delirium - continue enteral nutritional support at goal rate as tolerated - G.I. & VTE prophylaxis withy Famotidine and Lovenox - PT/OT/ROM exercises - continue mobility protocols for pressure ulcer prophylaxis - Monitor hemodynamics closely - continue other care per attending / other consultants - discharge planning ongoing concurrently .... Re-evaluate in am & prn CONDITION: CRITICAL PROGNOSIS: GUARDED CODE STATUS: FULL CODE The high probability of a clinically significant, sudden or life-threatening deterioration of the [respiratory, cardiovascular and neurologic] system (s) required my full and direct attention, intervention and personal management. The aggregate critical care time was [32] minutes without overlap. Time includes spent on; [x] Data Review and interpretation [x] Patient assessment and monitoring of vital signs [x] Documentation [x] Medication orders and management Subjective Date of service: 03/18/20 Principal diagnosis: Cardiac arrest; Ac. hypoxemic resp failure; COVID 19 infxn; Pulm HTN; OHS Interval history: Patient is seen today for: Cardiopulmoanry arrest with ROSC; Acute hypoxemic respiratory failure on MVS; COVID; Extreme obesity; Pulmonary HTN; Obesity hypoventilation syndrome Seen and examined at bedside; 24hour events reviewed; nursing and respiratory care staff consulted; no adverse overnight events reported to me; resting peacefully in bed; remains on MVS; waking up and with moderate ventilator dysynchrony; no emesis or overt aspiration reported Objective Vital Signs - 12hr 03/18/20 03/18/20 03/18/20 02:45 03:00 03:15 Temperature Pulse Rate 55 L 67 59 L Pulse Rate [ From Monitor] Respiratory 25 H 25 H 26 H Rate Blood Pressure 155/95 155/95 143/82 O2 Sat by Pulse 99 97 84 Oximetry 03/18/20 03/18/20 03/18/20 03:30 03:46 04:00 Temperature Pulse Rate 57 L 54 L 55 L Pulse Rate [ 56 L From Monitor] Respiratory 20 24 25 H Rate Blood Pressure 136/83 130/78 140/80 O2 Sat by Pulse 98 99 98 Oximetry 03/18/20 03/18/20 03/18/20 04:15 04:20 04:30 Temperature Pulse Rate 55 L 55 L 59 L Pulse Rate [ From Monitor] Respiratory 25 H 25 H Rate Blood Pressure 129/90 140/80 149/93 O2 Sat by Pulse 97 98 97 Oximetry 03/18/20 03/18/20 03/18/20 04:45 05:00 05:16 Temperature Pulse Rate 62 55 L 60 Pulse Rate [ From Monitor] Respiratory 25 H 25 H 25 H Rate Blood Pressure 142/82 144/111 138/77 O2 Sat by Pulse 97 99 93 Oximetry 03/18/20 03/18/20 03/18/20 05:30 05:45 06:00 Temperature Pulse Rate 67 74 58 L Pulse Rate [ From Monitor] Respiratory 25 H 25 H 25 H Rate Blood Pressure 136/79 137/83 141/77 O2 Sat by Pulse 93 94 98 Oximetry 03/18/20 03/18/20 03/18/20 06:15 06:30 06:45 Temperature Pulse Rate 56 L 52 L 51 L Pulse Rate [ From Monitor] Respiratory 25 H 25 H 25 H Rate Blood Pressure 135/74 138/73 135/75 O2 Sat by Pulse 98 97 97 Oximetry 03/18/20 03/18/20 03/18/20 07:00 07:15 07:30 Temperature Pulse Rate 51 L 50 L 89 Pulse Rate [ From Monitor] Respiratory 23 25 H 20 Rate Blood Pressure 135/75 137/78 135/75 O2 Sat by Pulse 96 98 93 Oximetry 03/18/20 03/18/20 03/18/20 07:45 08:00 08:09 Temperature 99.9 F H Pulse Rate 74 74 93 H Pulse Rate [ 74 From Monitor] Respiratory 25 H 26 H Rate Blood Pressure 140/79 150/74 150/74 O2 Sat by Pulse 97 89 93 Oximetry 03/18/20 03/18/20 03/18/20 08:15 08:30 08:46 Temperature Pulse Rate 87 73 95 H Pulse Rate [ From Monitor] Respiratory 19 19 20 Rate Blood Pressure 146/81 141/74 132/84 O2 Sat by Pulse 98 94 92 Oximetry 03/18/20 03/18/20 03/18/20 09:00 09:15 09:30 Temperature Pulse Rate 127 H 129 H 147 H Pulse Rate [ From Monitor] Respiratory 20 19 20 Rate Blood Pressure 132/84 181/85 181/85 O2 Sat by Pulse 74 L 67 L 58 L Oximetry 03/18/20 03/18/20 03/18/20 09:43 09:45 10:00 Temperature Pulse Rate 137 H 87 76 Pulse Rate [ From Monitor] Respiratory 20 20 Rate Blood Pressure 152/51 97/40 99/40 O2 Sat by Pulse 99 97 Oximetry 03/18/20 03/18/20 03/18/20 10:16 10:30 10:45 Temperature Pulse Rate 96 H 101 H 113 H Pulse Rate [ From Monitor] Respiratory 20 20 20 Rate Blood Pressure 126/67 126/67 177/87 O2 Sat by Pulse 97 92 100 Oximetry 03/18/20 03/18/20 03/18/20 11:00 11:15 11:30 Temperature Pulse Rate 107 H 109 H 109 H Pulse Rate [ From Monitor] Respiratory 21 20 20 Rate Blood Pressure 177/87 133/56 133/56 O2 Sat by Pulse 94 93 Oximetry 03/18/20 03/18/20 03/18/20 11:45 12:00 12:16 Temperature 98.0 F Pulse Rate 106 H 97 H 105 H Pulse Rate [ 79 From Monitor] Respiratory 20 20 17 Rate Blood Pressure 134/60 134/60 119/42 O2 Sat by Pulse 91 Oximetry 03/18/20 03/18/20 03/18/20 12:30 12:33 12:45 Temperature Pulse Rate 105 H 88 84 Pulse Rate [ From Monitor] Respiratory 17 20 Rate Blood Pressure 108/48 108/48 118/47 O2 Sat by Pulse 91 91 Oximetry Constitutional: appears uncomfortable, other (young obese female with moderatelyincreased respiratory effort at rest on MVS) Eyes: non-icteric ENT: oropharynx moist, oropharyngeal exudate pre (mild), other (orally intuabted, ETT 7.5 at 23cm ) Neck: supple, no lymphadenopathy, other (large circumference) Effort: mildly labored Ascultation: Bilateral: diminished breath sounds, rhonchi Percussion: Bilateral: not dull Cardiovascular: regular rate and rhythm, other (S1,S2) Gastrointestinal: normoactive bowel sounds, soft, non-distended (protuberant), other (obese) Integumentary: rash Extremities: no cyanosis, no edema, pulses normal, cool Neurologic: non-focal exam (moves all extremities, holding onto the rails), pupils equal and round, motor strength normal and, unable to assess Psychiatric: other (unable to assess) CBC and BMP: 03/17/20 11:55 03/17/20 11:55 ABG, PT/INR, D-dimer: ABG ABG pH 7.568 (7.320-7.450) H 03/18/20 03:33 POC ABG pCO2 30.6 mmHg (32.0-48.0) L 03/18/20 03:33 ABG pCO2 44.2 mm Hg 03/14/20 06:15 POC ABG pO2 167.6 mmHg (83-108) H 03/18/20 03:33 ABG pO2 92.8 mm Hg (80.0-90.0) H 03/14/20 06:15 POC ABG HCO3 27.3 03/18/20 03:33 ABG O2 Saturation 97.6 % (95.0-99.0) 03/14/20 06:15 PT/INR, D-dimer PT 13.7 Sec. (12.2-14.9) 03/09/20 08:27 INR 1.06 (0.87-1.13) 03/09/20 08:27 D-Dimer 1042.81 ng/mlDDU (0-234) H 03/09/20 08:27 Abnormal lab findings: Abnormal Labs 03/09/20 03/09/20 03/09/20 08:27 08:27 08:27 WBC 15.8 H RBC 5.43 H Hgb Hct MCH 24 L MCHC RDW 19.3 H Lymph % (Auto) [place] % (Auto) 8.2 H [place] # (Auto) 1.3 H Seg Neutrophils % 70.4 H Seg Neutrophils # 11.1 H D-Dimer ABG pH POC ABG pCO2 POC ABG pO2 ABG pO2 ABG HCO3 ABG Base Excess ABG Hemoglobin ABG Sodium ABG Potassium ABG Glucose Oxyhemoglobin Potassium Chloride 97.1 L Carbon Dioxide BUN 29 H Creatinine Glucose 178 H POC Glucose Hemoglobin A1c Lactic Acid 3.70 H* Total Bilirubin AST ALT Lactate Dehydrogenase 369 H C-Reactive Protein 3.00 H NT-Pro-B Natriuret Pep Total Protein Albumin Triglycerides Arterial Blood Glucose Arterial Blood Ionized Calcium Coronavirus (PCR) SARS-CoV-2 IgG Ab 03/09/20 03/09/20 03/09/20 08:27 08:27 08:27 WBC RBC Hgb Hct MCH MCHC RDW Lymph % (Auto) [place] % (Auto) [place] # (Auto) Seg Neutrophils % Seg Neutrophils # D-Dimer 1042.81 H ABG pH POC ABG pCO2 POC ABG pO2 ABG pO2 ABG HCO3 ABG Base Excess ABG Hemoglobin ABG Sodium ABG Potassium ABG Glucose Oxyhemoglobin Potassium Chloride Carbon Dioxide BUN Creatinine Glucose POC Glucose Hemoglobin A1c 8.0 H Lactic Acid Total Bilirubin AST ALT Lactate Dehydrogenase C-Reactive Protein NT-Pro-B Natriuret Pep 2914 H Total Protein Albumin Triglycerides Arterial Blood Glucose Arterial Blood Ionized Calcium Coronavirus (PCR) SARS-CoV-2 IgG Ab 03/09/20 03/09/20 03/10/20 08:43 23:04 05:23 WBC RBC Hgb Hct MCH MCHC RDW Lymph % (Auto) [place] % (Auto) [place] # (Auto) Seg Neutrophils % Seg Neutrophils # D-Dimer ABG pH POC ABG pCO2 POC ABG pO2 ABG pO2 ABG HCO3 ABG Base Excess ABG Hemoglobin ABG Sodium ABG Potassium ABG Glucose Oxyhemoglobin Potassium Chloride Carbon Dioxide BUN Creatinine Glucose POC Glucose 361 H Hemoglobin A1c Lactic Acid 6.80 H* Total Bilirubin AST ALT Lactate Dehydrogenase C-Reactive Protein NT-Pro-B Natriuret Pep Total Protein Albumin Triglycerides Arterial Blood Glucose Arterial Blood Ionized Calcium Coronavirus (PCR) Positive A SARS-CoV-2 IgG Ab 03/10/20 03/10/20 03/10/20 08:19 10:49 17:11 WBC RBC Hgb Hct MCH MCHC RDW Lymph % (Auto) [place] % (Auto) [place] # (Auto) Seg Neutrophils % Seg Neutrophils # D-Dimer ABG pH POC ABG pCO2 POC ABG pO2 ABG pO2 ABG HCO3 ABG Base Excess ABG Hemoglobin ABG Sodium ABG Potassium ABG Glucose Oxyhemoglobin Potassium Chloride Carbon Dioxide BUN Creatinine Glucose POC Glucose 371 H 423 H 373 H Hemoglobin A1c Lactic Acid Total Bilirubin AST ALT Lactate Dehydrogenase C-Reactive Protein NT-Pro-B Natriuret Pep Total Protein Albumin Triglycerides Arterial Blood Glucose Arterial Blood Ionized Calcium Coronavirus (PCR) SARS-CoV-2 IgG Ab 03/11/20 03/11/20 03/11/20 00:29 07:52 13:12 WBC RBC Hgb Hct MCH MCHC RDW Lymph % (Auto) [place] % (Auto) [place] # (Auto) Seg Neutrophils % Seg Neutrophils # D-Dimer ABG pH POC ABG pCO2 POC ABG pO2 ABG pO2 ABG HCO3 ABG Base Excess ABG Hemoglobin ABG Sodium ABG Potassium ABG Glucose Oxyhemoglobin Potassium Chloride Carbon Dioxide BUN Creatinine Glucose POC Glucose 242 H 233 H 352 H Hemoglobin A1c Lactic Acid Total Bilirubin AST ALT Lactate Dehydrogenase C-Reactive Protein NT-Pro-B Natriuret Pep Total Protein Albumin Triglycerides Arterial Blood Glucose Arterial Blood Ionized Calcium Coronavirus (PCR) SARS-CoV-2 IgG Ab 03/11/20 03/11/20 03/12/20 15:24 22:54 08:22 WBC RBC Hgb Hct MCH MCHC RDW Lymph % (Auto) [place] % (Auto) [place] # (Auto) Seg Neutrophils % Seg Neutrophils # D-Dimer ABG pH POC ABG pCO2 POC ABG pO2 ABG pO2 ABG HCO3 ABG Base Excess ABG Hemoglobin ABG Sodium ABG Potassium ABG Glucose Oxyhemoglobin Potassium Chloride Carbon Dioxide BUN Creatinine Glucose POC Glucose 386 H 418 H 431 H Hemoglobin A1c Lactic Acid Total Bilirubin AST ALT Lactate Dehydrogenase C-Reactive Protein NT-Pro-B Natriuret Pep Total Protein Albumin Triglycerides Arterial Blood Glucose Arterial Blood Ionized Calcium Coronavirus (PCR) SARS-CoV-2 IgG Ab 03/12/20 03/12/20 03/12/20 11:34 16:53 22:20 WBC RBC Hgb Hct MCH MCHC RDW Lymph % (Auto) [place] % (Auto) [place] # (Auto) Seg Neutrophils % Seg Neutrophils # D-Dimer ABG pH POC ABG pCO2 POC ABG pO2 ABG pO2 ABG HCO3 ABG Base Excess ABG Hemoglobin ABG Sodium ABG Potassium ABG Glucose Oxyhemoglobin Potassium Chloride Carbon Dioxide BUN Creatinine Glucose POC Glucose 310 H 358 H 295 H Hemoglobin A1c Lactic Acid Total Bilirubin AST ALT Lactate Dehydrogenase C-Reactive Protein NT-Pro-B Natriuret Pep Total Protein Albumin Triglycerides Arterial Blood Glucose Arterial Blood Ionized Calcium Coronavirus (PCR) SARS-CoV-2 IgG Ab 03/13/20 03/13/20 03/13/20 05:48 09:15 12:09 WBC 18.3 H RBC Hgb Hct MCH 24 L MCHC 29 L RDW 18.9 H Lymph % (Auto) 7.8 L [place] % (Auto) 9.7 H [place] # (Auto) 1.8 H Seg Neutrophils % 82.0 H Seg Neutrophils # 15.0 H D-Dimer ABG pH 7.327 L POC ABG pCO2 POC ABG pO2 ABG pO2 73.0 L ABG HCO3 39.3 H ABG Base Excess 10.8 H ABG Hemoglobin 11.2 L ABG Sodium ABG Potassium ABG Glucose Oxyhemoglobin 93.4 L Potassium Chloride Carbon Dioxide BUN Creatinine Glucose POC Glucose 216 H Hemoglobin A1c Lactic Acid Total Bilirubin AST ALT Lactate Dehydrogenase C-Reactive Protein NT-Pro-B Natriuret Pep Total Protein Albumin Triglycerides Arterial Blood Glucose Arterial Blood Ionized Calcium Coronavirus (PCR) SARS-CoV-2 IgG Ab 03/13/20 03/13/20 03/13/20 12:09 12:11 17:23 WBC RBC Hgb Hct MCH MCHC RDW Lymph % (Auto) [place] % (Auto) [place] # (Auto) Seg Neutrophils % Seg Neutrophils # D-Dimer ABG pH POC ABG pCO2 POC ABG pO2 ABG pO2 ABG HCO3 ABG Base Excess ABG Hemoglobin ABG Sodium ABG Potassium ABG Glucose Oxyhemoglobin Potassium 5.1 H Chloride Carbon Dioxide 37 H D BUN Creatinine Glucose 154 H POC Glucose 148 H 217 H Hemoglobin A1c Lactic Acid Total Bilirubin AST 47 H ALT 128 H Lactate Dehydrogenase C-Reactive Protein NT-Pro-B Natriuret Pep Total Protein 5.9 L Albumin 3.0 L Triglycerides Arterial Blood Glucose Arterial Blood Ionized Calcium Coronavirus (PCR) SARS-CoV-2 IgG Ab 03/14/20 03/14/20 03/14/20 06:15 06:55 09:17 WBC 14.9 H RBC Hgb Hct MCH 25 L MCHC RDW 19.1 H Lymph % (Auto) 9.5 L [place] % (Auto) [place] # (Auto) 0.9 H Seg Neutrophils % 83.8 H Seg Neutrophils # 12.5 H D-Dimer ABG pH 7.544 H POC ABG pCO2 POC ABG pO2 ABG pO2 92.8 H ABG HCO3 37.3 H ABG Base Excess 13.5 H ABG Hemoglobin 10.5 L ABG Sodium ABG Potassium ABG Glucose Oxyhemoglobin Potassium Chloride Carbon Dioxide BUN Creatinine Glucose POC Glucose 182 H Hemoglobin A1c Lactic Acid Total Bilirubin AST ALT Lactate Dehydrogenase C-Reactive Protein NT-Pro-B Natriuret Pep Total Protein Albumin Triglycerides Arterial Blood Glucose Arterial Blood Ionized Calcium Coronavirus (PCR) SARS-CoV-2 IgG Ab 03/14/20 03/14/20 03/14/20 09:17 11:43 17:47 WBC RBC Hgb Hct MCH MCHC RDW Lymph % (Auto) [place] % (Auto) [place] # (Auto) Seg Neutrophils % Seg Neutrophils # D-Dimer ABG pH POC ABG pCO2 POC ABG pO2 ABG pO2 ABG HCO3 ABG Base Excess ABG Hemoglobin ABG Sodium ABG Potassium ABG Glucose Oxyhemoglobin Potassium Chloride Carbon Dioxide 34 H BUN Creatinine 0.5 L Glucose 204 H POC Glucose 283 H 254 H Hemoglobin A1c Lactic Acid Total Bilirubin 2.60 H AST 82 H ALT 152 H Lactate Dehydrogenase C-Reactive Protein NT-Pro-B Natriuret Pep Total Protein 5.7 L Albumin 3.0 L Triglycerides Arterial Blood Glucose Arterial Blood Ionized Calcium Coronavirus (PCR) SARS-CoV-2 IgG Ab 03/14/20 03/15/20 03/15/20 23:59 03:08 05:52 WBC RBC Hgb Hct MCH MCHC RDW Lymph % (Auto) [place] % (Auto) [place] # (Auto) Seg Neutrophils % Seg Neutrophils # D-Dimer ABG pH 7.536 H POC ABG pCO2 POC ABG pO2 ABG pO2 ABG HCO3 ABG Base Excess ABG Hemoglobin 10.7 L ABG Sodium 135.2 L ABG Potassium ABG Glucose 317 H Oxyhemoglobin Potassium Chloride Carbon Dioxide BUN Creatinine Glucose POC Glucose 293 H 293 H Hemoglobin A1c Lactic Acid Total Bilirubin AST ALT Lactate Dehydrogenase C-Reactive Protein NT-Pro-B Natriuret Pep Total Protein Albumin Triglycerides Arterial Blood Glucose 317 H Arterial Blood Ionized Calcium 4.5 L Coronavirus (PCR) SARS-CoV-2 IgG Ab 03/15/20 03/15/20 03/15/20 13:29 17:43 23:26 WBC RBC Hgb Hct MCH MCHC RDW Lymph % (Auto) [place] % (Auto) [place] # (Auto) Seg Neutrophils % Seg Neutrophils # D-Dimer ABG pH POC ABG pCO2 POC ABG pO2 ABG pO2 ABG HCO3 ABG Base Excess ABG Hemoglobin ABG Sodium ABG Potassium ABG Glucose Oxyhemoglobin Potassium Chloride Carbon Dioxide BUN Creatinine Glucose POC Glucose 299 H 327 H 325 H Hemoglobin A1c Lactic Acid Total Bilirubin AST ALT Lactate Dehydrogenase C-Reactive Protein NT-Pro-B Natriuret Pep Total Protein Albumin Triglycerides Arterial Blood Glucose Arterial Blood Ionized Calcium Coronavirus (PCR) SARS-CoV-2 IgG Ab 03/16/20 03/16/20 03/16/20 01:28 04:44 05:26 WBC RBC Hgb Hct MCH MCHC RDW Lymph % (Auto) [place] % (Auto) [place] # (Auto) Seg Neutrophils % Seg Neutrophils # D-Dimer ABG pH 7.540 H POC ABG pCO2 POC ABG pO2 ABG pO2 ABG HCO3 ABG Base Excess ABG Hemoglobin 10.5 L ABG Sodium ABG Potassium ABG Glucose 312 H Oxyhemoglobin Potassium Chloride Carbon Dioxide BUN 18 H Creatinine Glucose 330 H POC Glucose 264 H Hemoglobin A1c Lactic Acid Total Bilirubin AST ALT Lactate Dehydrogenase C-Reactive Protein NT-Pro-B Natriuret Pep Total Protein Albumin Triglycerides Arterial Blood Glucose 312 H Arterial Blood Ionized Calcium Coronavirus (PCR) SARS-CoV-2 IgG Ab 03/16/20 03/16/20 03/16/20 11:58 17:51 17:54 WBC RBC Hgb Hct MCH MCHC RDW Lymph % (Auto) [place] % (Auto) [place] # (Auto) Seg Neutrophils % Seg Neutrophils # D-Dimer ABG pH POC ABG pCO2 58.9 H POC ABG pO2 142.4 H ABG pO2 ABG HCO3 ABG Base Excess ABG Hemoglobin 11.6 L ABG Sodium 135.9 L ABG Potassium 4.9 H ABG Glucose 332 H Oxyhemoglobin Potassium Chloride Carbon Dioxide BUN Creatinine Glucose POC Glucose 196 H 285 H Hemoglobin A1c Lactic Acid Total Bilirubin AST ALT Lactate Dehydrogenase C-Reactive Protein NT-Pro-B Natriuret Pep Total Protein Albumin Triglycerides Arterial Blood Glucose 332 H Arterial Blood Ionized Calcium Coronavirus (PCR) SARS-CoV-2 IgG Ab 03/16/20 03/16/20 03/17/20 17:56 23:43 03:13 WBC RBC Hgb Hct MCH MCHC RDW Lymph % (Auto) [place] % (Auto) [place] # (Auto) Seg Neutrophils % Seg Neutrophils # D-Dimer ABG pH POC ABG pCO2 POC ABG pO2 ABG pO2 ABG HCO3 ABG Base Excess ABG Hemoglobin ABG Sodium ABG Potassium ABG Glucose Oxyhemoglobin Potassium Chloride Carbon Dioxide BUN Creatinine Glucose POC Glucose 258 H Hemoglobin A1c Lactic Acid Total Bilirubin AST ALT Lactate Dehydrogenase C-Reactive Protein NT-Pro-B Natriuret Pep Total Protein Albumin Triglycerides 252 H Arterial Blood Glucose Arterial Blood Ionized Calcium Coronavirus (PCR) SARS-CoV-2 IgG Ab Reactive A 03/17/20 03/17/20 03/17/20 05:33 11:12 11:55 WBC RBC Hgb 9.2 L Hct 29.7 L MCH 25 L MCHC RDW 19.9 H Lymph % (Auto) [place] % (Auto) [place] # (Auto) Seg Neutrophils % Seg Neutrophils # D-Dimer ABG pH POC ABG pCO2 POC ABG pO2 ABG pO2 ABG HCO3 ABG Base Excess ABG Hemoglobin ABG Sodium ABG Potassium ABG Glucose Oxyhemoglobin Potassium Chloride Carbon Dioxide BUN Creatinine Glucose POC Glucose 157 H 112 H Hemoglobin A1c Lactic Acid Total Bilirubin AST ALT Lactate Dehydrogenase C-Reactive Protein NT-Pro-B Natriuret Pep Total Protein Albumin Triglycerides Arterial Blood Glucose Arterial Blood Ionized Calcium Coronavirus (PCR) SARS-CoV-2 IgG Ab 03/17/20 03/17/20 03/17/20 11:55 11:55 17:20 WBC RBC Hgb Hct MCH MCHC RDW Lymph % (Auto) [place] % (Auto) [place] # (Auto) Seg Neutrophils % Seg Neutrophils # D-Dimer ABG pH POC ABG pCO2 POC ABG pO2 ABG pO2 ABG HCO3 ABG Base Excess ABG Hemoglobin 10.2 L ABG Sodium ABG Potassium ABG Glucose 137 H Oxyhemoglobin Potassium Chloride Carbon Dioxide BUN 21 H Creatinine 0.5 L Glucose 118 H POC Glucose 178 H Hemoglobin A1c Lactic Acid Total Bilirubin AST ALT Lactate Dehydrogenase C-Reactive Protein NT-Pro-B Natriuret Pep Total Protein Albumin Triglycerides Arterial Blood Glucose 137 H Arterial Blood Ionized Calcium Coronavirus (PCR) SARS-CoV-2 IgG Ab 03/18/20 03/18/20 03/18/20 00:16 03:33 05:48 WBC RBC Hgb Hct MCH MCHC RDW Lymph % (Auto) [place] % (Auto) [place] # (Auto) Seg Neutrophils % Seg Neutrophils # D-Dimer ABG pH 7.568 H POC ABG pCO2 30.6 L POC ABG pO2 167.6 H ABG pO2 ABG HCO3 ABG Base Excess ABG Hemoglobin 10.9 L ABG Sodium 133.8 L ABG Potassium ABG Glucose 125 H Oxyhemoglobin Potassium Chloride Carbon Dioxide BUN Creatinine Glucose POC Glucose 119 H 114 H Hemoglobin A1c Lactic Acid Total Bilirubin AST ALT Lactate Dehydrogenase C-Reactive Protein NT-Pro-B Natriuret Pep Total Protein Albumin Triglycerides Arterial Blood Glucose 125 H Arterial Blood Ionized Calcium Coronavirus (PCR) SARS-CoV-2 IgG Ab 03/18/20 11:46 WBC RBC Hgb Hct MCH MCHC RDW Lymph % (Auto) [place] % (Auto) [place] # (Auto) Seg Neutrophils % Seg Neutrophils # D-Dimer ABG pH POC ABG pCO2 POC ABG pO2 ABG pO2 ABG HCO3 ABG Base Excess ABG Hemoglobin ABG Sodium ABG Potassium ABG Glucose Oxyhemoglobin Potassium Chloride Carbon Dioxide BUN Creatinine Glucose POC Glucose 165 H Hemoglobin A1c Lactic Acid Total Bilirubin AST ALT Lactate Dehydrogenase C-Reactive Protein NT-Pro-B Natriuret Pep Total Protein Albumin Triglycerides Arterial Blood Glucose Arterial Blood Ionized Calcium Coronavirus (PCR) SARS-CoV-2 IgG Ab Chest x-ray: image reviewed (no new infiltrate) Allied health notes reviewed: nursing
[2020-03-18] MEDS: PROPOFOL 500 MG/50 ML VIAL IV SCH ×2 (15:01→20:29)
--- NOTE | 2020-03-18 17:37 | Progress Note ---
Assessment and Plan --Acute respiratory failure due to COVID-19 and staph PNA patient now intubated since 03/13 following a cardiac arrest Critical care following, continue scheduled breathing treatment, IV steroid Wean off from vent as tolerated --Status post cardiac arrest on 03/13 Patient currently intubated, 2D echo showed preserved EF with right ventricular pressure 68 --Novel Coronavirus infection Coronavirus protocol: Infectious disease service consulted, contact precautions, isolation precaution, steroid therapy, follow inflammatory markers Diagnosed over 2 weeks ago, as such not a candidate for remdesivir. Given that her ferritin is normal, less likely to be in cytokine storm. -Patient also positive for COVID-19 antibody -no scope for convalescent plasma therapy -- Pneumonia with MRSA and COVID Pneumonia protocol: Supplemental oxygen, IV antibiotic therapy, pulse oximetry, blood culture. -s/p cefepime 2 g every 8 hours given elevated white count, lactic acid and procalcitonin -Continue vancomycin as sputum culture growing MRSA for 7 days -Patient was diagnosed with COVID-19 2 weeks ago- not a candidate for remdesivir --Sepsis, due to COVID-19 and MRSA pneumonia Likely present on admission, continue antibiotics, follow inflammatory markers -- Hypertension Monitor blood pressure every shift, continue medical management -- Diabetes type 2 Tube feeding diet, sliding scale insulin therapy, Accu-Chek, hypoglycemia protocol -- Obesity hypoventilation syndrome BMI 78.7, monitor weight pulse oximetry, nebulizer therapy, supplemental oxygen, patient now intubated outpatient pulmonary follow-up for sleep study when clinically stable, need recommendation on balanced diet, increase physical activity at discharge -- Pulmonary hypertension Supportive care, outpatient pulmonology follow-up for sleep study. And also need evaluation for vasodilator therapy. -- DVT prophylaxis SCD to bilateral lower extremities while in bed, prophylactic anticoagulation. The high probability of a clinically significant, sudden or life threatening deterioration of the [pulmonary, cardiac, renal, neuro] system(s) required my full and direct attention, intervention and personal management. The aggregate critical care time was [90] minutes. This time is in addition to time spent performing reported procedures but includes the following: [x] Data Review and interpretation [x] Patient assessment and monitoring of vital signs [x] Documentation [x] Medication orders and management Brief history: 29-year-old female past medical history morbid obesity, obesity hypoventilation syndrome, diabetes admitted with shortness of breath. Patient is positive for COVID-19 diagnosed 2 weeks ago, patient currently intubated following a cardiac arrest on 03/13/20. ID following and critical care following. Sputum culture is positive for staph aureus. 03/16: cont iv abx, follow pending sputum Cx. wean off vent as tolerated 03/17: Sputum culture positive for MRSA, stop cefepime continue on vancomycin for 7 days per ID recommendation. Wean off vent as tolerated, continue tube feeding 03/18: cont iv abx, no change clinically, wean off vent as tolerated. cont current Mx Subjective Date of service: 03/18/20 Principal diagnosis: Cardiac arrest; Ac. hypoxemic resp failure; COVID 19 infxn; Pulm HTN; OHS Interval history: Patient seen and examined Patient currently intubated with mechanical ventilation Patient also sedated and restrained Discussed with RN at the bedside No acute overnight event Sputum culture positive for MRSA Objective - Exam Narrative Exam: GENERAL: well-developed morbidly obese -Iranian female lying on bed intubated and sedated. HEENT: Normocephalic. Atraumatic. No conjunctival congestion or icterus. Patient has moist mucous membranes. NECK: Supple. Trachea midline. ET tube in place CHEST/LUNGS: Diminished breath sound auscultated bilaterally, mechanically ventilated HEART/CARDIOVASCULAR: Tachycardic. S1 and S2 positive. ABDOMEN: Abdomen is soft, nontender. Patient has normal bowel sounds. SKIN: There is no rash. Warm and dry. NEURO: Sedated MUSCULOSKELETAL: No joint effusion or tenderness. EXTRIMITY: No edema, no cyanosis or clubbing. PSYCH: Sedated. - Constitutional Vitals: Vital Signs - 12hr 03/18/20 03/18/20 03/18/20 05:45 06:00 06:15 Temperature Pulse Rate 74 58 L 56 L Pulse Rate [ From Monitor] Respiratory 25 H 25 H 25 H Rate Blood Pressure 137/83 141/77 135/74 O2 Sat by Pulse 94 98 98 Oximetry 03/18/20 03/18/20 03/18/20 06:30 06:45 07:00 Temperature Pulse Rate 52 L 51 L 51 L Pulse Rate [ From Monitor] Respiratory 25 H 25 H 23 Rate Blood Pressure 138/73 135/75 135/75 O2 Sat by Pulse 97 97 96 Oximetry 03/18/20 03/18/20 03/18/20 07:15 07:30 07:45 Temperature Pulse Rate 50 L 89 74 Pulse Rate [ From Monitor] Respiratory 25 H 20 25 H Rate Blood Pressure 137/78 135/75 140/79 O2 Sat by Pulse 98 93 97 Oximetry 03/18/20 03/18/20 03/18/20 08:00 08:09 08:15 Temperature 99.9 F H Pulse Rate 74 93 H 87 Pulse Rate [ 74 From Monitor] Respiratory 26 H 19 Rate Blood Pressure 150/74 150/74 146/81 O2 Sat by Pulse 89 93 98 Oximetry 03/18/20 03/18/20 03/18/20 08:30 08:46 09:00 Temperature Pulse Rate 73 95 H 127 H Pulse Rate [ From Monitor] Respiratory 19 20 20 Rate Blood Pressure 141/74 132/84 132/84 O2 Sat by Pulse 94 92 74 L Oximetry 03/18/20 03/18/20 03/18/20 09:15 09:30 09:43 Temperature Pulse Rate 129 H 147 H 137 H Pulse Rate [ From Monitor] Respiratory 19 20 Rate Blood Pressure 181/85 181/85 152/51 O2 Sat by Pulse 67 L 58 L Oximetry 03/18/20 03/18/20 03/18/20 09:45 10:00 10:16 Temperature Pulse Rate 87 76 96 H Pulse Rate [ From Monitor] Respiratory 20 20 20 Rate Blood Pressure 97/40 99/40 126/67 O2 Sat by Pulse 99 97 97 Oximetry 03/18/20 03/18/20 03/18/20 10:30 10:45 11:00 Temperature Pulse Rate 101 H 113 H 107 H Pulse Rate [ From Monitor] Respiratory 20 20 21 Rate Blood Pressure 126/67 177/87 177/87 O2 Sat by Pulse 92 100 94 Oximetry 03/18/20 03/18/20 03/18/20 11:15 11:30 11:45 Temperature Pulse Rate 109 H 109 H 106 H Pulse Rate [ From Monitor] Respiratory 20 20 20 Rate Blood Pressure 133/56 133/56 134/60 O2 Sat by Pulse 93 Oximetry 03/18/20 03/18/20 03/18/20 12:00 12:16 12:30 Temperature 98.0 F Pulse Rate 96 H 105 H 105 H Pulse Rate [ 79 From Monitor] Respiratory 20 17 17 Rate Blood Pressure 134/60 119/42 108/48 O2 Sat by Pulse 91 Oximetry 03/18/20 03/18/20 03/18/20 12:33 12:45 13:00 Temperature Pulse Rate 88 84 80 Pulse Rate [ From Monitor] Respiratory 20 20 Rate Blood Pressure 108/48 118/47 116/54 O2 Sat by Pulse 91 91 92 Oximetry 03/18/20 03/18/20 03/18/20 13:15 13:30 13:45 Temperature Pulse Rate 74 71 67 Pulse Rate [ From Monitor] Respiratory 20 20 20 Rate Blood Pressure 111/47 111/46 116/48 O2 Sat by Pulse 91 93 93 Oximetry 03/18/20 03/18/20 03/18/20 14:00 14:15 14:30 Temperature Pulse Rate 69 66 71 Pulse Rate [ From Monitor] Respiratory 20 20 20 Rate Blood Pressure 106/52 112/56 124/67 O2 Sat by Pulse 93 94 94 Oximetry 03/18/20 03/18/20 03/18/20 14:45 15:00 15:15 Temperature Pulse Rate 109 H 114 H 114 H Pulse Rate [ From Monitor] Respiratory 20 13 15 Rate Blood Pressure 143/83 165/91 164/86 O2 Sat by Pulse 92 87 88 Oximetry 03/18/20 03/18/20 03/18/20 15:30 15:45 16:00 Temperature 99.6 F Pulse Rate 102 H 96 H 93 H Pulse Rate [ 91 H From Monitor] Respiratory 15 13 23 Rate Blood Pressure 141/53 129/51 129/48 O2 Sat by Pulse 89 90 90 Oximetry 03/18/20 03/18/20 03/18/20 16:15 16:21 16:30 Temperature Pulse Rate 92 H 91 H 90 Pulse Rate [ From Monitor] Respiratory 17 12 Rate Blood Pressure 134/52 134/52 138/51 O2 Sat by Pulse 91 90 91 Oximetry 03/18/20 03/18/20 16:45 17:00 Temperature Pulse Rate 92 H 90 Pulse Rate [ From Monitor] Respiratory 15 12 Rate Blood Pressure 124/49 128/58 O2 Sat by Pulse 91 91 Oximetry - Labs CBC & Chem 7: 03/19/20 14:00 03/19/20 14:00 Labs: Abnormal lab results 03/18/20 03/18/20 03/18/20 Range/Units 00:16 03:33 05:48 ABG pH 7.568 H (7.320-7.450) POC ABG pCO2 30.6 L (32.0-48.0) mmHg POC ABG pO2 167.6 H (83-108) mmHg ABG Hemoglobin 10.9 L (12.0-17.5) ABG Sodium 133.8 L (136.0-145.0) mmol/L ABG Glucose 125 H (65-95) mg/dL POC Glucose 119 H 114 H (70-105) mg/dL Arterial Blood Glucose 125 H (65-95) mg/dL 03/18/20 03/18/20 Range/Units 11:46 17:11 ABG pH (7.320-7.450) POC ABG pCO2 (32.0-48.0) mmHg POC ABG pO2 (83-108) mmHg ABG Hemoglobin (12.0-17.5) ABG Sodium (136.0-145.0) mmol/L ABG Glucose (65-95) mg/dL POC Glucose 165 H 155 H (70-105) mg/dL Arterial Blood Glucose (65-95) mg/dL HEART Score - HEART Score Troponin: Troponin T 0.017 ng/mL (0.00-0.029) 03/14/20 09:17
[2020-03-18] MEDS: INSULIN GLARGINE 100 UNITS/ML SUB-Q SCH (22:20)
[2020-03-19] MEDS: fentaNYL DRIP Premix 2,000 MCG/100 ML BAG IV SCH ×7 (02:19→23:38)
[2020-03-19] MEDS: PROPOFOL 500 MG/50 ML VIAL IV SCH ×4 (05:39→18:05)
[2020-03-19] MEDS: INSULIN LISPRO 100 UNIT/ML VIAL 3 mL SUB-Q SCH ×5 (05:40→23:21)
--- NOTE | 2020-03-19 08:33 | XRay Report ---
CHEST 1 VIEW INDICATION / CLINICAL INFORMATION: follow up respiratory failure. COMPARISON: 03/18/2020 FINDINGS: SUPPORT DEVICES: Endotracheal tube, nasogastric tube HEART / MEDIASTINUM: Cardiomegaly LUNGS / PLEURA: Interstitial pulmonary edema No pneumothorax. ADDITIONAL FINDINGS: No significant additional findings. IMPRESSION: Cardiomegaly and interstitial pulmonary edema unchanged from yesterday Signer Name: West Kamara MD FACR Signed: 03/19/2020 8:29 AM Workstation Name: [id number]
[2020-03-19] MEDS: VANCOMYCIN 2,000 MG in SODIUM CHLORIDE 0.9% 500 ML 500 ML IV SCH (08:57)
[2020-03-19] MEDS: QUEtiapine 100 MG TAB PO SCH ×2 (09:42→21:23)
[2020-03-19] MEDS: POLYETHYLENE GLYCOL 3350 17 GM POWDER PO SCH (09:43)
[2020-03-19] MEDS: SENNOSIDES/DOCUSATE SODIUM 8.6/50 MG TAB PO SCH ×3 (09:43→23:28)
[2020-03-19] MEDS: HEPARIN 5,000 UNIT/1 ML VIAL SUB-Q SCH (09:43)
[2020-03-19] MEDS: LANSOPRAZOLE 30 MG SOLUTAB FEEDTUBE SCH (09:52)
[2020-03-19] MEDS: amLODIPine 10 MG TAB PO SCH (09:52)
[2020-03-19] MEDS: LOSARTAN 50 MG TAB PO SCH (09:53)
[2020-03-19] MEDS: MIDAZOLAM 2 MG/2 ML INJ IV PRN (11:37)
[2020-03-19] MEDS: FUROSEMIDE 40 MG/4 ML INJ IV SCH ×2 (11:38→17:24)
--- NOTE | 2020-03-19 12:51 | Cat Scan Report ---
CTA CHEST WITH CONTRAST INDICATION / CLINICAL INFORMATION: MAIN. TECHNIQUE: Axial CT images were obtained through the chest after injection of 100 cc of Omnipaque 350 IV contrast. 3 plane MIP and/or 3D reconstructions were produced. All CT scans at this location are performed using CT dose reduction for ALARA by means of automated exposure control. COMPARISON: None FINDINGS: PULMONARY ARTERIES: Examination for pulmonary embolus is limited due to motion artifact and body habi tus. There are suspected nonocclusive filling defects in the segmental and subsegmental pulmonary art eries of the right lower lobe, best demonstrated on series 3 image 145. Additional small filling defe cts are present within the subsegmental pulmonary arteries of the left lower lobe, as seen on series 3 image 156. THORACIC AORTA: No significant abnormality. HEART: There is cardiomegaly. No evidence of right heart strain. No pericardial effusion. ADENOPATHY: No significant adenopathy. LUNGS/PLEURA: Patchy bilateral airspace consolidations, most pronounced in the lung bases. There is i nterlobular septal thickening also present. No pneumothorax. There are trace bibasilar pleural effusi ons, slightly greater on the right. ADDITIONAL FINDINGS: Endotracheal tube terminates above the anna. Enteric catheter terminates at th e GE junction. UPPER ABDOMEN: Cholecystomy. Suspected hepatosplenomegaly, partially imaged. SKELETAL STRUCTURES: No significant osseous abnormality. IMPRESSION: 1. Limited study for pulmonary embolus, as above. Suspected small nonocclusive pulmonary emboli in th e segmental and subsegmental right lower lobe pulmonary arteries and subsegmental left lower lobe pul monary arteries. No evidence of right heart strain. 2. Findings most compatible with multifocal pneumonia. Component of pulmonary edema from fluid overlo ad/CHF is also likely present. 3. Enteric catheter terminates at the GE junction. Recommend advancement. CRITICAL RESULT: Time of Discovery (DRAFTER DIRECTIONAL SURVEY/CDT): 03/19/2020 at 11:40 AM Time of Communication (DRAFTER DIRECTIONAL SURVEY/CDT): 03/19/2020 at 11:46 AM Licensed Practitioner Receiving Report: [id number] Erickson Read-Back Performed: Yes. Signer Name: Bobby Harrell MD Signed: 03/19/2020 12:47 PM Workstation Name: [id number]
[2020-03-19] MEDS ORDERED: HEPARIN 10,000 UNITS/10 ML VIAL IV SCH (13:02)
[2020-03-19] MEDS ORDERED: ROCURONIUM 50 MG/5 ML INJ IV ONE ×2 (13:21→15:00)
[2020-03-19] MEDS ORDERED: propofoL 200 MG/20 ML VIAL IV ONE ×2 (13:26→15:00)
[2020-03-19] MEDS ORDERED: EPINEPHrine 1 MG/10 ML SYRINGE ONE (13:38)
[2020-03-19] MEDS ORDERED: CALCIUM CHLORIDE 1,000 MG/10 ML SYRINGE IV ONE (13:38)
[2020-03-19] MEDS ORDERED: SODIUM BICARB 8.4% 50 MEQ/50 ML SYRINGE IV ONE (13:38)
[2020-03-19] MEDS: NORepinephrine/NS 4 MG-250 ML 4 MG/250 ML BAG IV SCH (13:45)
[2020-03-19 14:17] LABS: Hematocrit 32.9 % (30.3-42.9); Mean Corpuscular HGB Conc 30 % (30-34); Mean Corpuscular Volume 84 fl (79-97); Platelet Count 240 K/mm3 (140-440); Red Blood Count 3.93 M/mm3 (3.65-5.03)
[2020-03-19 14:21] LABS: Red Cell Distribution Width 20.5 % (13.2-15.2)
[2020-03-19 14:33] LABS: Calcium 9.8 mg/dL (8.4-10.2)
[2020-03-19 14:46] LABS: INR 1.08 (0.87-1.13); Partial Thromboplastin Time 22.4 Sec. (24.2-36.6)
[2020-03-19] MEDS: HEPARIN/ 0.45% NACL DRIP 25,000 UNIT/500 ML BAG IV SCH (15:24)
--- NOTE | 2020-03-19 15:26 | Progress Note ---
Assessment and Plan Cardiopulmoanry arrest with ROSC Acute hypoxemic respiratory failure on MVS COVID Extreme obesity Pulmonary HTN Obesity hypoventilation syndrome - ABG post re-intubation and adjust ventilation - ABG at 9 pm - increased peep to 12 - restraints (physical and chemical re: sedation) - place difficult airway sign - CTA chest reveals P.E. - on full dose IV heparin for anticoagulation - continue Seroquel 300 mg BID for sedation / anxiolysis - continue care as below otherwise; - continue bowel regimen - adjust Geodon dose based on response - prn gentle diuresis; monitor output and follow renal function/electrolytes - contact and airborne isolation per facility protocols for COVID - Daily SAT's and SBT assessment as tolerated - continue accuchecks with glycemic control per SSI (While critically ill target blood glucose of 140-180 mg/dL; avoid hypoglycemia) - sedation prn for target RASS -1 to -2 - continue to wean supplemental oxygen for target O2 sat's > 92% acutely - VAP bundle addressed - continue lung protective strategies - continue bronchodilators with pulmonary hygiene per RT - wean per pulmonary driven protocols otherwise - Varela catheter in this critically ill patient - Conservative fluid management - avoid nephrotoxins, renally dose all medications - Empiric antibiotics to include HAP coverage (on Vanc and Cefepime); adjust per ID recommendations and clinical response - prn analgesia per CPOT score - Maintenance of sleep-wake cycle, avoid delirium - continue enteral nutritional support at goal rate as tolerated - G.I. & VTE prophylaxis withy Famotidine and Lovenox - PT/OT/ROM exercises - continue mobility protocols for pressure ulcer prophylaxis - Monitor hemodynamics closely - continue other care per attending / other consultants - discharge planning ongoing concurrently .... Re-evaluate in am & prn CONDITION: CRITICAL PROGNOSIS: GUARDED CODE STATUS: FULL CODE The high probability of a clinically significant, sudden or life-threatening deterioration of the [respiratory, cardiovascular and neurologic] system (s) required my full and direct attention, intervention and personal management. The aggregate critical care time was [45] minutes without overlap. Time includes spent on; [x] Data Review and interpretation [x] Patient assessment and monitoring of vital signs [x] Documentation [x] Medication orders and management Subjective Date of service: 03/19/20 Principal diagnosis: Cardiac arrest; Ac. hypoxemic resp failure; COVID 19 infxn; Pulm HTN; OHS Interval history: Patient is seen today for: Cardiopulmoanry arrest with ROSC; Acute hypoxemic respiratory failure on MVS; COVID; Extreme obesity; Pulmonary HTN; Obesity hypoventilation syndrome Seen and examined at bedside; 24hour events reviewed; nursing and respiratory care staff consulted; no adverse overnight events reported to me; resting peacefully in bed; remains on MVS; self extubated and now s/p ACLS / CPR with ROSC; FiO2 up to 100%; secretiosn large; Objective Vital Signs - 12hr 03/19/20 03/19/20 03/19/20 03:30 03:32 03:45 Temperature 98.2 F Pulse Rate 85 81 Pulse Rate [ From Monitor] Respiratory 14 16 Rate Blood Pressure 111/42 112/48 O2 Sat by Pulse 99 98 Oximetry 03/19/20 03/19/20 03/19/20 04:00 04:01 04:15 Temperature Pulse Rate 84 87 86 Pulse Rate [ 83 From Monitor] Respiratory 24 13 14 Rate Blood Pressure 112/48 112/48 O2 Sat by Pulse 90 98 98 Oximetry 03/19/20 03/19/20 03/19/20 04:31 04:45 05:01 Temperature Pulse Rate 88 83 90 Pulse Rate [ From Monitor] Respiratory 14 20 19 Rate Blood Pressure 112/48 112/48 112/48 O2 Sat by Pulse 99 100 100 Oximetry 03/19/20 03/19/20 03/19/20 05:16 05:31 05:45 Temperature Pulse Rate 78 73 81 Pulse Rate [ From Monitor] Respiratory 20 20 19 Rate Blood Pressure 86/64 O2 Sat by Pulse 100 100 100 Oximetry 03/19/20 03/19/20 03/19/20 06:01 06:15 06:30 Temperature Pulse Rate 70 68 67 Pulse Rate [ From Monitor] Respiratory 20 20 20 Rate Blood Pressure 92/33 92/33 91/37 O2 Sat by Pulse 100 100 Oximetry 03/19/20 03/19/20 03/19/20 06:45 07:01 07:15 Temperature Pulse Rate 70 86 75 Pulse Rate [ From Monitor] Respiratory 20 18 20 Rate Blood Pressure 96/42 119/74 107/47 O2 Sat by Pulse Oximetry 03/19/20 03/19/20 03/19/20 07:30 07:45 08:00 Temperature Pulse Rate 68 69 70 Pulse Rate [ 64 From Monitor] Respiratory 20 20 24 Rate Blood Pressure 104/54 102/54 106/55 O2 Sat by Pulse 100 100 90 Oximetry 03/19/20 03/19/20 03/19/20 08:15 08:30 08:45 Temperature Pulse Rate 69 68 65 Pulse Rate [ From Monitor] Respiratory 19 20 20 Rate Blood Pressure 113/53 119/53 118/50 O2 Sat by Pulse 100 100 100 Oximetry 03/19/20 03/19/20 03/19/20 09:01 09:15 09:30 Temperature Pulse Rate 76 68 70 Pulse Rate [ From Monitor] Respiratory 18 17 20 Rate Blood Pressure 113/48 106/58 106/59 O2 Sat by Pulse 100 100 Oximetry 03/19/20 03/19/20 03/19/20 09:45 09:52 09:53 Temperature Pulse Rate 72 68 67 Pulse Rate [ From Monitor] Respiratory 18 Rate Blood Pressure 106/59 109/52 109/52 O2 Sat by Pulse Oximetry 03/19/20 03/19/20 03/19/20 10:00 10:02 10:15 Temperature Pulse Rate 68 71 67 Pulse Rate [ From Monitor] Respiratory 17 21 Rate Blood Pressure 116/55 116/55 106/49 O2 Sat by Pulse 100 100 99 Oximetry 03/19/20 03/19/20 03/19/20 10:30 10:45 11:00 Temperature Pulse Rate 66 66 64 Pulse Rate [ From Monitor] Respiratory 20 20 20 Rate Blood Pressure 103/55 123/60 125/64 O2 Sat by Pulse 98 100 100 Oximetry 03/19/20 03/19/20 03/19/20 11:15 12:00 12:24 Temperature Pulse Rate 63 103 H Pulse Rate [ 80 From Monitor] Respiratory 20 24 21 Rate Blood Pressure 132/67 122/80 O2 Sat by Pulse 100 94 97 Oximetry 03/19/20 03/19/20 03/19/20 12:29 12:31 12:45 Temperature Pulse Rate 92 H 92 H 78 Pulse Rate [ From Monitor] Respiratory 20 20 Rate Blood Pressure 122/80 87/26 95/35 O2 Sat by Pulse 92 91 95 Oximetry 03/19/20 03/19/20 03/19/20 13:00 13:15 13:32 Temperature Pulse Rate 71 68 Pulse Rate [ From Monitor] Respiratory 20 20 Rate Blood Pressure 114/45 120/51 146/77 O2 Sat by Pulse 94 Oximetry 03/19/20 03/19/20 03/19/20 13:45 14:00 14:15 Temperature Pulse Rate 122 H 79 78 Pulse Rate [ From Monitor] Respiratory 20 Rate Blood Pressure 216/78 90/27 67/36 O2 Sat by Pulse Oximetry 03/19/20 03/19/20 03/19/20 14:30 14:45 15:00 Temperature Pulse Rate 92 H 82 80 Pulse Rate [ From Monitor] Respiratory 20 20 20 Rate Blood Pressure 158/59 136/49 144/54 O2 Sat by Pulse 93 94 Oximetry Constitutional: appears uncomfortable, other (young obese female with moderately increased respiratory effort at rest on MVS) Eyes: non-icteric ENT: oropharynx moist, oropharyngeal exudate pre (moderate), other (orally intubated, ETT 26cm ) Neck: supple, no lymphadenopathy, other (large circumference) Effort: mildly labored Ascultation: Bilateral: diminished breath sounds, rhonchi Percussion: Bilateral: not dull Cardiovascular: regular rate and rhythm, other (S1,S2) Gastrointestinal: normoactive bowel sounds, soft, non-distended (protuberant), other (obese) Integumentary: rash Extremities: no cyanosis, no edema, pulses normal, cool Neurologic: non-focal exam (moves all extremities, holding onto the rails), pupils equal and round, motor strength normal and, unable to assess Psychiatric: other (unable to assess) CBC and BMP: 03/19/20 14:00 03/19/20 14:00 ABG, PT/INR, D-dimer: ABG ABG pH 7.231 (7.320-7.450) L 03/19/20 10:47 POC ABG pCO2 67.5 mmHg (32.0-48.0) H 03/19/20 10:47 ABG pCO2 44.2 mm Hg 03/14/20 06:15 POC ABG pO2 142.4 mmHg (83-108) H 03/19/20 10:47 ABG pO2 92.8 mm Hg (80.0-90.0) H 03/14/20 06:15 POC ABG HCO3 27.7 03/19/20 10:47 ABG O2 Saturation 97.6 % (95.0-99.0) 03/14/20 06:15 PT/INR, D-dimer PT 13.9 Sec. (12.2-14.9) 03/19/20 14:00 INR 1.08 (0.87-1.13) 03/19/20 14:00 D-Dimer 1042.81 ng/mlDDU (0-234) H 03/09/20 08:27 Abnormal lab findings: Abnormal Labs 03/09/20 03/09/20 03/09/20 08:27 08:27 08:27 WBC 15.8 H RBC 5.43 H Hgb Hct MCH 24 L MCHC RDW 19.3 H Lymph % (Auto) Cascade % (Auto) 8.2 H Cascade # (Auto) 1.3 H Seg Neutrophils % 70.4 H Seg Neutrophils # 11.1 H APTT D-Dimer ABG pH POC ABG pCO2 POC ABG pO2 ABG pO2 ABG HCO3 ABG Base Excess ABG Hemoglobin ABG Sodium ABG Potassium ABG Glucose Oxyhemoglobin Carboxyhemoglobin Potassium Chloride 97.1 L Carbon Dioxide BUN 29 H Creatinine Glucose 178 H POC Glucose Hemoglobin A1c Lactic Acid 3.70 H* Total Bilirubin AST ALT Lactate Dehydrogenase 369 H C-Reactive Protein 3.00 H NT-Pro-B Natriuret Pep Total Protein Albumin Triglycerides Arterial Blood Glucose Arterial Blood Ionized Calcium Coronavirus (PCR) SARS-CoV-2 IgG Ab 03/09/20 03/09/20 03/09/20 08:27 08:27 08:27 WBC RBC Hgb Hct MCH MCHC RDW Lymph % (Auto) Cascade % (Auto) Cascade # (Auto) Seg Neutrophils % Seg Neutrophils # APTT D-Dimer 1042.81 H ABG pH POC ABG pCO2 POC ABG pO2 ABG pO2 ABG HCO3 ABG Base Excess ABG Hemoglobin ABG Sodium ABG Potassium ABG Glucose Oxyhemoglobin Carboxyhemoglobin Potassium Chloride Carbon Dioxide BUN Creatinine Glucose POC Glucose Hemoglobin A1c 8.0 H Lactic Acid Total Bilirubin AST ALT Lactate Dehydrogenase C-Reactive Protein NT-Pro-B Natriuret Pep 2914 H Total Protein Albumin Triglycerides Arterial Blood Glucose Arterial Blood Ionized Calcium Coronavirus (PCR) SARS-CoV-2 IgG Ab 03/09/20 03/09/20 03/10/20 08:43 23:04 05:23 WBC RBC Hgb Hct MCH MCHC RDW Lymph % (Auto) Cascade % (Auto) Cascade # (Auto) Seg Neutrophils % Seg Neutrophils # APTT D-Dimer ABG pH POC ABG pCO2 POC ABG pO2 ABG pO2 ABG HCO3 ABG Base Excess ABG Hemoglobin ABG Sodium ABG Potassium ABG Glucose Oxyhemoglobin Carboxyhemoglobin Potassium Chloride Carbon Dioxide BUN Creatinine Glucose POC Glucose 361 H Hemoglobin A1c Lactic Acid 6.80 H* Total Bilirubin AST ALT Lactate Dehydrogenase C-Reactive Protein NT-Pro-B Natriuret Pep Total Protein Albumin Triglycerides Arterial Blood Glucose Arterial Blood Ionized Calcium Coronavirus (PCR) Positive A SARS-CoV-2 IgG Ab 03/10/20 03/10/20 03/10/20 08:19 10:49 17:11 WBC RBC Hgb Hct MCH MCHC RDW Lymph % (Auto) Cascade % (Auto) Cascade # (Auto) Seg Neutrophils % Seg Neutrophils # APTT D-Dimer ABG pH POC ABG pCO2 POC ABG pO2 ABG pO2 ABG HCO3 ABG Base Excess ABG Hemoglobin ABG Sodium ABG Potassium ABG Glucose Oxyhemoglobin Carboxyhemoglobin Potassium Chloride Carbon Dioxide BUN Creatinine Glucose POC Glucose 371 H 423 H 373 H Hemoglobin A1c Lactic Acid Total Bilirubin AST ALT Lactate Dehydrogenase C-Reactive Protein NT-Pro-B Natriuret Pep Total Protein Albumin Triglycerides Arterial Blood Glucose Arterial Blood Ionized Calcium Coronavirus (PCR) SARS-CoV-2 IgG Ab 03/11/20 03/11/20 03/11/20 00:29 07:52 13:12 WBC RBC Hgb Hct MCH MCHC RDW Lymph % (Auto) Cascade % (Auto) Cascade # (Auto) Seg Neutrophils % Seg Neutrophils # APTT D-Dimer ABG pH POC ABG pCO2 POC ABG pO2 ABG pO2 ABG HCO3 ABG Base Excess ABG Hemoglobin ABG Sodium ABG Potassium ABG Glucose Oxyhemoglobin Carboxyhemoglobin Potassium Chloride Carbon Dioxide BUN Creatinine Glucose POC Glucose 242 H 233 H 352 H Hemoglobin A1c Lactic Acid Total Bilirubin AST ALT Lactate Dehydrogenase C-Reactive Protein NT-Pro-B Natriuret Pep Total Protein Albumin Triglycerides Arterial Blood Glucose Arterial Blood Ionized Calcium Coronavirus (PCR) SARS-CoV-2 IgG Ab 03/11/20 03/11/20 03/12/20 15:24 22:54 08:22 WBC RBC Hgb Hct MCH MCHC RDW Lymph % (Auto) Cascade % (Auto) Cascade # (Auto) Seg Neutrophils % Seg Neutrophils # APTT D-Dimer ABG pH POC ABG pCO2 POC ABG pO2 ABG pO2 ABG HCO3 ABG Base Excess ABG Hemoglobin ABG Sodium ABG Potassium ABG Glucose Oxyhemoglobin Carboxyhemoglobin Potassium Chloride Carbon Dioxide BUN Creatinine Glucose POC Glucose 386 H 418 H 431 H Hemoglobin A1c Lactic Acid Total Bilirubin AST ALT Lactate Dehydrogenase C-Reactive Protein NT-Pro-B Natriuret Pep Total Protein Albumin Triglycerides Arterial Blood Glucose Arterial Blood Ionized Calcium Coronavirus (PCR) SARS-CoV-2 IgG Ab 03/12/20 03/12/20 03/12/20 11:34 16:53 22:20 WBC RBC Hgb Hct MCH MCHC RDW Lymph % (Auto) Cascade % (Auto) Cascade # (Auto) Seg Neutrophils % Seg Neutrophils # APTT D-Dimer ABG pH POC ABG pCO2 POC ABG pO2 ABG pO2 ABG HCO3 ABG Base Excess ABG Hemoglobin ABG Sodium ABG Potassium ABG Glucose Oxyhemoglobin Carboxyhemoglobin Potassium Chloride Carbon Dioxide BUN Creatinine Glucose POC Glucose 310 H 358 H 295 H Hemoglobin A1c Lactic Acid Total Bilirubin AST ALT Lactate Dehydrogenase C-Reactive Protein NT-Pro-B Natriuret Pep Total Protein Albumin Triglycerides Arterial Blood Glucose Arterial Blood Ionized Calcium Coronavirus (PCR) SARS-CoV-2 IgG Ab 03/13/20 03/13/20 03/13/20 05:48 09:15 12:09 WBC 18.3 H RBC Hgb Hct MCH 24 L MCHC 29 L RDW 18.9 H Lymph % (Auto) 7.8 L Cascade % (Auto) 9.7 H Cascade # (Auto) 1.8 H Seg Neutrophils % 82.0 H Seg Neutrophils # 15.0 H APTT D-Dimer ABG pH 7.327 L POC ABG pCO2 POC ABG pO2 ABG pO2 73.0 L ABG HCO3 39.3 H ABG Base Excess 10.8 H ABG Hemoglobin 11.2 L ABG Sodium ABG Potassium ABG Glucose Oxyhemoglobin 93.4 L Carboxyhemoglobin Potassium Chloride Carbon Dioxide BUN Creatinine Glucose POC Glucose 216 H Hemoglobin A1c Lactic Acid Total Bilirubin AST ALT Lactate Dehydrogenase C-Reactive Protein NT-Pro-B Natriuret Pep Total Protein Albumin Triglycerides Arterial Blood Glucose Arterial Blood Ionized Calcium Coronavirus (PCR) SARS-CoV-2 IgG Ab 03/13/20 03/13/20 03/13/20 12:09 12:11 17:23 WBC RBC Hgb Hct MCH MCHC RDW Lymph % (Auto) Cascade % (Auto) Cascade # (Auto) Seg Neutrophils % Seg Neutrophils # APTT D-Dimer ABG pH POC ABG pCO2 POC ABG pO2 ABG pO2 ABG HCO3 ABG Base Excess ABG Hemoglobin ABG Sodium ABG Potassium ABG Glucose Oxyhemoglobin Carboxyhemoglobin Potassium 5.1 H Chloride Carbon Dioxide 37 H D BUN Creatinine Glucose 154 H POC Glucose 148 H 217 H Hemoglobin A1c Lactic Acid Total Bilirubin AST 47 H ALT 128 H Lactate Dehydrogenase C-Reactive Protein NT-Pro-B Natriuret Pep Total Protein 5.9 L Albumin 3.0 L Triglycerides Arterial Blood Glucose Arterial Blood Ionized Calcium Coronavirus (PCR) SARS-CoV-2 IgG Ab 03/14/20 03/14/20 03/14/20 06:15 06:55 09:17 WBC 14.9 H RBC Hgb Hct MCH 25 L MCHC RDW 19.1 H Lymph % (Auto) 9.5 L Cascade % (Auto) Cascade # (Auto) 0.9 H Seg Neutrophils % 83.8 H Seg Neutrophils # 12.5 H APTT D-Dimer ABG pH 7.544 H POC ABG pCO2 POC ABG pO2 ABG pO2 92.8 H ABG HCO3 37.3 H ABG Base Excess 13.5 H ABG Hemoglobin 10.5 L ABG Sodium ABG Potassium ABG Glucose Oxyhemoglobin Carboxyhemoglobin Potassium Chloride Carbon Dioxide BUN Creatinine Glucose POC Glucose 182 H Hemoglobin A1c Lactic Acid Total Bilirubin AST ALT Lactate Dehydrogenase C-Reactive Protein NT-Pro-B Natriuret Pep Total Protein Albumin Triglycerides Arterial Blood Glucose Arterial Blood Ionized Calcium Coronavirus (PCR) SARS-CoV-2 IgG Ab 03/14/20 03/14/20 03/14/20 09:17 11:43 17:47 WBC RBC Hgb Hct MCH MCHC RDW Lymph % (Auto) Cascade % (Auto) Cascade # (Auto) Seg Neutrophils % Seg Neutrophils # APTT D-Dimer ABG pH POC ABG pCO2 POC ABG pO2 ABG pO2 ABG HCO3 ABG Base Excess ABG Hemoglobin ABG Sodium ABG Potassium ABG Glucose Oxyhemoglobin Carboxyhemoglobin Potassium Chloride Carbon Dioxide 34 H BUN Creatinine 0.5 L Glucose 204 H POC Glucose 283 H 254 H Hemoglobin A1c Lactic Acid Total Bilirubin 2.60 H AST 82 H ALT 152 H Lactate Dehydrogenase C-Reactive Protein NT-Pro-B Natriuret Pep Total Protein 5.7 L Albumin 3.0 L Triglycerides Arterial Blood Glucose Arterial Blood Ionized Calcium Coronavirus (PCR) SARS-CoV-2 IgG Ab 03/14/20 03/15/20 03/15/20 23:59 03:08 05:52 WBC RBC Hgb Hct MCH MCHC RDW Lymph % (Auto) Cascade % (Auto) Cascade # (Auto) Seg Neutrophils % Seg Neutrophils # APTT D-Dimer ABG pH 7.536 H POC ABG pCO2 POC ABG pO2 ABG pO2 ABG HCO3 ABG Base Excess ABG Hemoglobin 10.7 L ABG Sodium 135.2 L ABG Potassium ABG Glucose 317 H Oxyhemoglobin Carboxyhemoglobin Potassium Chloride Carbon Dioxide BUN Creatinine Glucose POC Glucose 293 H 293 H Hemoglobin A1c Lactic Acid Total Bilirubin AST ALT Lactate Dehydrogenase C-Reactive Protein NT-Pro-B Natriuret Pep Total Protein Albumin Triglycerides Arterial Blood Glucose 317 H Arterial Blood Ionized Calcium 4.5 L Coronavirus (PCR) SARS-CoV-2 IgG Ab 03/15/20 03/15/20 03/15/20 13:29 17:43 23:26 WBC RBC Hgb Hct MCH MCHC RDW Lymph % (Auto) Cascade % (Auto) Cascade # (Auto) Seg Neutrophils % Seg Neutrophils # APTT D-Dimer ABG pH POC ABG pCO2 POC ABG pO2 ABG pO2 ABG HCO3 ABG Base Excess ABG Hemoglobin ABG Sodium ABG Potassium ABG Glucose Oxyhemoglobin Carboxyhemoglobin Potassium Chloride Carbon Dioxide BUN Creatinine Glucose POC Glucose 299 H 327 H 325 H Hemoglobin A1c Lactic Acid Total Bilirubin AST ALT Lactate Dehydrogenase C-Reactive Protein NT-Pro-B Natriuret Pep Total Protein Albumin Triglycerides Arterial Blood Glucose Arterial Blood Ionized Calcium Coronavirus (PCR) SARS-CoV-2 IgG Ab 03/16/20 03/16/20 03/16/20 01:28 04:44 05:26 WBC RBC Hgb Hct MCH MCHC RDW Lymph % (Auto) Cascade % (Auto) Cascade # (Auto) Seg Neutrophils % Seg Neutrophils # APTT D-Dimer ABG pH 7.540 H POC ABG pCO2 POC ABG pO2 ABG pO2 ABG HCO3 ABG Base Excess ABG Hemoglobin 10.5 L ABG Sodium ABG Potassium ABG Glucose 312 H Oxyhemoglobin Carboxyhemoglobin Potassium Chloride Carbon Dioxide BUN 18 H Creatinine Glucose 330 H POC Glucose 264 H Hemoglobin A1c Lactic Acid Total Bilirubin AST ALT Lactate Dehydrogenase C-Reactive Protein NT-Pro-B Natriuret Pep Total Protein Albumin Triglycerides Arterial Blood Glucose 312 H Arterial Blood Ionized Calcium Coronavirus (PCR) SARS-CoV-2 IgG Ab 03/16/20 03/16/20 03/16/20 11:58 17:51 17:54 WBC RBC Hgb Hct MCH MCHC RDW Lymph % (Auto) Cascade % (Auto) Cascade # (Auto) Seg Neutrophils % Seg Neutrophils # APTT D-Dimer ABG pH POC ABG pCO2 58.9 H POC ABG pO2 142.4 H ABG pO2 ABG HCO3 ABG Base Excess ABG Hemoglobin 11.6 L ABG Sodium 135.9 L ABG Potassium 4.9 H ABG Glucose 332 H Oxyhemoglobin Carboxyhemoglobin Potassium Chloride Carbon Dioxide BUN Creatinine Glucose POC Glucose 196 H 285 H Hemoglobin A1c Lactic Acid Total Bilirubin AST ALT Lactate Dehydrogenase C-Reactive Protein NT-Pro-B Natriuret Pep Total Protein Albumin Triglycerides Arterial Blood Glucose 332 H Arterial Blood Ionized Calcium Coronavirus (PCR) SARS-CoV-2 IgG Ab 03/16/20 03/16/20 03/17/20 17:56 23:43 03:13 WBC RBC Hgb Hct MCH MCHC RDW Lymph % (Auto) Cascade % (Auto) Cascade # (Auto) Seg Neutrophils % Seg Neutrophils # APTT D-Dimer ABG pH POC ABG pCO2 POC ABG pO2 ABG pO2 ABG HCO3 ABG Base Excess ABG Hemoglobin ABG Sodium ABG Potassium ABG Glucose Oxyhemoglobin Carboxyhemoglobin Potassium Chloride Carbon Dioxide BUN Creatinine Glucose POC Glucose 258 H Hemoglobin A1c Lactic Acid Total Bilirubin AST ALT Lactate Dehydrogenase C-Reactive Protein NT-Pro-B Natriuret Pep Total Protein Albumin Triglycerides 252 H Arterial Blood Glucose Arterial Blood Ionized Calcium Coronavirus (PCR) SARS-CoV-2 IgG Ab Reactive A 03/17/20 03/17/20 03/17/20 05:33 11:12 11:55 WBC RBC Hgb 9.2 L Hct 29.7 L MCH 25 L MCHC RDW 19.9 H Lymph % (Auto) Cascade % (Auto) Cascade # (Auto) Seg Neutrophils % Seg Neutrophils # APTT D-Dimer ABG pH POC ABG pCO2 POC ABG pO2 ABG pO2 ABG HCO3 ABG Base Excess ABG Hemoglobin ABG Sodium ABG Potassium ABG Glucose Oxyhemoglobin Carboxyhemoglobin Potassium Chloride Carbon Dioxide BUN Creatinine Glucose POC Glucose 157 H 112 H Hemoglobin A1c Lactic Acid Total Bilirubin AST ALT Lactate Dehydrogenase C-Reactive Protein NT-Pro-B Natriuret Pep Total Protein Albumin Triglycerides Arterial Blood Glucose Arterial Blood Ionized Calcium Coronavirus (PCR) SARS-CoV-2 IgG Ab 03/17/20 03/17/20 03/17/20 11:55 11:55 17:20 WBC RBC Hgb Hct MCH MCHC RDW Lymph % (Auto) Cascade % (Auto) Cascade # (Auto) Seg Neutrophils % Seg Neutrophils # APTT D-Dimer ABG pH POC ABG pCO2 POC ABG pO2 ABG pO2 ABG HCO3 ABG Base Excess ABG Hemoglobin 10.2 L ABG Sodium ABG Potassium ABG Glucose 137 H Oxyhemoglobin Carboxyhemoglobin Potassium Chloride Carbon Dioxide BUN 21 H Creatinine 0.5 L Glucose 118 H POC Glucose 178 H Hemoglobin A1c Lactic Acid Total Bilirubin AST ALT Lactate Dehydrogenase C-Reactive Protein NT-Pro-B Natriuret Pep Total Protein Albumin Triglycerides Arterial Blood Glucose 137 H Arterial Blood Ionized Calcium Coronavirus (PCR) SARS-CoV-2 IgG Ab 03/18/20 03/18/20 03/18/20 00:16 03:33 05:48 WBC RBC Hgb Hct MCH MCHC RDW Lymph % (Auto) Cascade % (Auto) Cascade # (Auto) Seg Neutrophils % Seg Neutrophils # APTT D-Dimer ABG pH 7.568 H POC ABG pCO2 30.6 L POC ABG pO2 167.6 H ABG pO2 ABG HCO3 ABG Base Excess ABG Hemoglobin 10.9 L ABG Sodium 133.8 L ABG Potassium ABG Glucose 125 H Oxyhemoglobin Carboxyhemoglobin Potassium Chloride Carbon Dioxide BUN Creatinine Glucose POC Glucose 119 H 114 H Hemoglobin A1c Lactic Acid Total Bilirubin AST ALT Lactate Dehydrogenase C-Reactive Protein NT-Pro-B Natriuret Pep Total Protein Albumin Triglycerides Arterial Blood Glucose 125 H Arterial Blood Ionized Calcium Coronavirus (PCR) SARS-CoV-2 IgG Ab 03/18/20 03/18/20 03/18/20 11:46 17:11 23:18 WBC RBC Hgb Hct MCH MCHC RDW Lymph % (Auto) Cascade % (Auto) Cascade # (Auto) Seg Neutrophils % Seg Neutrophils # APTT D-Dimer ABG pH POC ABG pCO2 POC ABG pO2 ABG pO2 ABG HCO3 ABG Base Excess ABG Hemoglobin ABG Sodium ABG Potassium ABG Glucose Oxyhemoglobin Carboxyhemoglobin Potassium Chloride Carbon Dioxide BUN Creatinine Glucose POC Glucose 165 H 155 H 142 H Hemoglobin A1c Lactic Acid Total Bilirubin AST ALT Lactate Dehydrogenase C-Reactive Protein NT-Pro-B Natriuret Pep Total Protein Albumin Triglycerides Arterial Blood Glucose Arterial Blood Ionized Calcium Coronavirus (PCR) SARS-CoV-2 IgG Ab 03/19/20 03/19/20 03/19/20 04:41 05:03 10:47 WBC RBC Hgb Hct MCH MCHC RDW Lymph % (Auto) Cascade % (Auto) Cascade # (Auto) Seg Neutrophils % Seg Neutrophils # APTT D-Dimer ABG pH 7.041 L 7.231 L POC ABG pCO2 100.4 H 67.5 H POC ABG pO2 142.4 H ABG pO2 ABG HCO3 ABG Base Excess ABG Hemoglobin 11.2 L 9.7 L ABG Sodium 135.8 L 134.8 L ABG Potassium 5.3 H 4.8 H ABG Glucose 150 H 160 H Oxyhemoglobin Carboxyhemoglobin 1.6 H Potassium Chloride Carbon Dioxide BUN Creatinine Glucose POC Glucose 123 H Hemoglobin A1c Lactic Acid Total Bilirubin AST ALT Lactate Dehydrogenase C-Reactive Protein NT-Pro-B Natriuret Pep Total Protein Albumin Triglycerides Arterial Blood Glucose 150 H 160 H Arterial Blood Ionized Calcium Coronavirus (PCR) SARS-CoV-2 IgG Ab 03/19/20 03/19/20 03/19/20 11:41 14:00 14:00 WBC RBC Hgb 10.0 L Hct MCH 26 L MCHC RDW 20.5 H Lymph % (Auto) Cascade % (Auto) Cascade # (Auto) Seg Neutrophils % Seg Neutrophils # APTT 22.4 L D-Dimer ABG pH POC ABG pCO2 POC ABG pO2 ABG pO2 ABG HCO3 ABG Base Excess ABG Hemoglobin ABG Sodium ABG Potassium ABG Glucose Oxyhemoglobin Carboxyhemoglobin Potassium Chloride Carbon Dioxide BUN Creatinine Glucose POC Glucose 153 H Hemoglobin A1c Lactic Acid Total Bilirubin AST ALT Lactate Dehydrogenase C-Reactive Protein NT-Pro-B Natriuret Pep Total Protein Albumin Triglycerides Arterial Blood Glucose Arterial Blood Ionized Calcium Coronavirus (PCR) SARS-CoV-2 IgG Ab 03/19/20 14:00 WBC RBC Hgb Hct MCH MCHC RDW Lymph % (Auto) Cascade % (Auto) Cascade # (Auto) Seg Neutrophils % Seg Neutrophils # APTT D-Dimer ABG pH POC ABG pCO2 POC ABG pO2 ABG pO2 ABG HCO3 ABG Base Excess ABG Hemoglobin ABG Sodium ABG Potassium ABG Glucose Oxyhemoglobin Carboxyhemoglobin Potassium Chloride Carbon Dioxide BUN 42 H Creatinine 2.5 H D Glucose 235 H POC Glucose Hemoglobin A1c Lactic Acid Total Bilirubin AST ALT Lactate Dehydrogenase C-Reactive Protein NT-Pro-B Natriuret Pep Total Protein Albumin Triglycerides Arterial Blood Glucose Arterial Blood Ionized Calcium Coronavirus (PCR) SARS-CoV-2 IgG Ab Chest x-ray: pending Allied health notes reviewed: nursing
--- NOTE | 2020-03-19 15:59 | Progress Note ---
Assessment and Plan --Acute respiratory failure due to COVID-19 and staph PNA patient now intubated since 03/13 following a cardiac arrest self extubated today then reintubated Critical care following, continue scheduled breathing treatment, IV steroid Wean off from vent as tolerated --Status post cardiac arrest on 03/13 and today Patient currently intubated, 2D echo showed preserved EF with right ventricular pressure 68 --B/l PE, initiated on heparin drip --Novel Coronavirus infection Coronavirus protocol: Infectious disease service consulted, contact precautions, isolation precaution, steroid therapy, follow inflammatory markers Diagnosed over 2 weeks ago, as such not a candidate for remdesivir. Given that her ferritin is normal, less likely to be in cytokine storm. -Patient also positive for COVID-19 antibody -no scope for convalescent plasma therapy -- Pneumonia with MRSA and COVID Pneumonia protocol: Supplemental oxygen, IV antibiotic therapy, pulse oximetry, blood culture. -s/p cefepime 2 g every 8 hours given elevated white count, lactic acid and procalcitonin -Continue vancomycin as sputum culture growing MRSA for 7 days -Patient was diagnosed with COVID-19 2 weeks ago- not a candidate for remdesivir --Sepsis, due to COVID-19 and MRSA pneumonia Likely present on admission, continue antibiotics, follow inflammatory markers -- Hypertension Monitor blood pressure every shift, continue medical management -- Diabetes type 2 Tube feeding diet, sliding scale insulin therapy, Accu-Chek, hypoglycemia protocol -- Obesity hypoventilation syndrome BMI 78.7, monitor weight pulse oximetry, nebulizer therapy, supplemental oxygen, patient now intubated outpatient pulmonary follow-up for sleep study when clinically stable, need recommendation on balanced diet, increase physical activity at discharge -- Pulmonary hypertension Supportive care, outpatient pulmonology follow-up for sleep study. And also need evaluation for vasodilator therapy. -- DVT prophylaxis SCD to bilateral lower extremities while in bed, prophylactic anticoagulation. The high probability of a clinically significant, sudden or life threatening deterioration of the [pulmonary, cardiac, renal, neuro] system(s) required my full and direct attention, intervention and personal management. The aggregate critical care time was [90] minutes. This time is in addition to time spent performing reported procedures but includes the following: [x] Data Review and interpretation [x] Patient assessment and monitoring of vital signs [x] Documentation [x] Medication orders and management Brief history: 29-year-old female past medical history morbid obesity, obesity hypoventilation syndrome, diabetes admitted with shortness of breath. Patient is positive for COVID-19 diagnosed 2 weeks ago, patient currently intubated following a cardiac arrest on 03/13/20. ID following and critical care following. Sputum culture is positive for staph aureus. 03/16: cont iv abx, follow pending sputum Cx. wean off vent as tolerated 03/17: Sputum culture positive for MRSA, stop cefepime continue on vancomycin for 7 days per ID recommendation. Wean off vent as tolerated, continue tube feeding 03/19: Patient self extubated herself and then developed cardiac arrest. ACLS initiated and ROSC obtained Discussed with RN at the bedside. CTA chest showed b/l PE, heparin drip initiated. Called patient's mother and updated Subjective Date of service: 03/19/20 Principal diagnosis: Cardiac arrest; Ac. hypoxemic resp failure; COVID 19 infxn; Pulm HTN; OHS Interval history: Patient seen and examined Patient self extubated herself and then developed cardiac arrest ACLS initiated and ROSC obtained Patient currently intubated with mechanical ventilation Patient also sedated and restrained Discussed with RN at the bedside Called patient's mother and updated Objective - Exam Narrative Exam: GENERAL: well-developed morbidly obese -[place] female lying on bed intubated and sedated. HEENT: Normocephalic. Atraumatic. No conjunctival congestion or icterus. Patient has moist mucous membranes. NECK: Supple. Trachea midline. ET tube in place CHEST/LUNGS: Diminished breath sound auscultated bilaterally, mechanically ventilated HEART/CARDIOVASCULAR: Tachycardic. S1 and S2 positive. ABDOMEN: Abdomen is soft, nontender. Patient has normal bowel sounds. SKIN: There is no rash. Warm and dry. NEURO: Sedated MUSCULOSKELETAL: No joint effusion or tenderness. EXTRIMITY: No edema, no cyanosis or clubbing. PSYCH: Sedated. - Constitutional Vitals: Vital Signs - 12hr 03/19/20 03/19/20 03/19/20 04:00 04:01 04:15 Pulse Rate 84 87 86 Pulse Rate [ 83 From Monitor] Respiratory 24 13 14 Rate Blood Pressure 112/48 112/48 O2 Sat by Pulse 90 98 98 Oximetry 03/19/20 03/19/20 03/19/20 04:31 04:45 05:01 Pulse Rate 88 83 90 Pulse Rate [ From Monitor] Respiratory 14 20 19 Rate Blood Pressure 112/48 112/48 112/48 O2 Sat by Pulse 99 100 100 Oximetry 03/19/20 03/19/20 03/19/20 05:16 05:31 05:45 Pulse Rate 78 73 81 Pulse Rate [ From Monitor] Respiratory 20 20 19 Rate Blood Pressure 86/64 O2 Sat by Pulse 100 100 100 Oximetry 03/19/20 03/19/20 03/19/20 06:01 06:15 06:30 Pulse Rate 70 68 67 Pulse Rate [ From Monitor] Respiratory 20 20 20 Rate Blood Pressure 92/33 92/33 91/37 O2 Sat by Pulse 100 100 Oximetry 03/19/20 03/19/20 03/19/20 06:45 07:01 07:15 Pulse Rate 70 86 75 Pulse Rate [ From Monitor] Respiratory 20 18 20 Rate Blood Pressure 96/42 119/74 107/47 O2 Sat by Pulse Oximetry 03/19/20 03/19/20 03/19/20 07:30 07:45 08:00 Pulse Rate 68 69 70 Pulse Rate [ 64 From Monitor] Respiratory 20 20 24 Rate Blood Pressure 104/54 102/54 106/55 O2 Sat by Pulse 100 100 90 Oximetry 03/19/20 03/19/20 03/19/20 08:15 08:30 08:45 Pulse Rate 69 68 65 Pulse Rate [ From Monitor] Respiratory 19 20 20 Rate Blood Pressure 113/53 119/53 118/50 O2 Sat by Pulse 100 100 100 Oximetry 03/19/20 03/19/20 03/19/20 09:01 09:15 09:30 Pulse Rate 76 68 70 Pulse Rate [ From Monitor] Respiratory 18 17 20 Rate Blood Pressure 113/48 106/58 106/59 O2 Sat by Pulse 100 100 Oximetry 03/19/20 03/19/20 03/19/20 09:45 09:52 09:53 Pulse Rate 72 68 67 Pulse Rate [ From Monitor] Respiratory 18 Rate Blood Pressure 106/59 109/52 109/52 O2 Sat by Pulse Oximetry 03/19/20 03/19/20 03/19/20 10:00 10:02 10:15 Pulse Rate 68 71 67 Pulse Rate [ From Monitor] Respiratory 17 21 Rate Blood Pressure 116/55 116/55 106/49 O2 Sat by Pulse 100 100 99 Oximetry 03/19/20 03/19/20 03/19/20 10:30 10:45 11:00 Pulse Rate 66 66 64 Pulse Rate [ From Monitor] Respiratory 20 20 20 Rate Blood Pressure 103/55 123/60 125/64 O2 Sat by Pulse 98 100 100 Oximetry 03/19/20 03/19/20 03/19/20 11:15 12:00 12:24 Pulse Rate 63 103 H Pulse Rate [ 80 From Monitor] Respiratory 20 24 21 Rate Blood Pressure 132/67 122/80 O2 Sat by Pulse 100 94 97 Oximetry 03/19/20 03/19/20 03/19/20 12:29 12:31 12:45 Pulse Rate 92 H 92 H 78 Pulse Rate [ From Monitor] Respiratory 20 20 Rate Blood Pressure 122/80 87/26 95/35 O2 Sat by Pulse 92 91 95 Oximetry 03/19/20 03/19/20 03/19/20 13:00 13:15 13:32 Pulse Rate 71 68 Pulse Rate [ From Monitor] Respiratory 20 20 Rate Blood Pressure 114/45 120/51 146/77 O2 Sat by Pulse 94 Oximetry 03/19/20 03/19/20 03/19/20 13:45 14:00 14:15 Pulse Rate 122 H 79 78 Pulse Rate [ From Monitor] Respiratory 20 Rate Blood Pressure 216/78 90/27 67/36 O2 Sat by Pulse Oximetry 03/19/20 03/19/20 03/19/20 14:30 14:45 15:00 Pulse Rate 92 H 82 80 Pulse Rate [ From Monitor] Respiratory 20 20 20 Rate Blood Pressure 158/59 136/49 144/54 O2 Sat by Pulse 93 94 Oximetry - Labs CBC & Chem 7: 03/19/20 14:00 03/19/20 14:00 Labs: Abnormal lab results 03/18/20 03/18/20 03/19/20 Range/Units 17:11 23:18 04:41 Hgb (10.1-14.3) gm/dl MCH (28-32) pg RDW (13.2-15.2) % APTT (24.2-36.6) Sec. ABG pH 7.041 L (7.320-7.450) POC ABG pCO2 100.4 H (32.0-48.0) mmHg POC ABG pO2 (83-108) mmHg ABG Hemoglobin 11.2 L (12.0-17.5) ABG Sodium 135.8 L (136.0-145.0) mmol/L ABG Potassium 5.3 H (3.40-4.50) mmol/L ABG Glucose 150 H (65-95) mg/dL Carboxyhemoglobin (0.5-1.5) BUN (7-17) mg/dL Creatinine (0.6-1.2) mg/dL Glucose (65-100) mg/dL POC Glucose 155 H 142 H (70-105) mg/dL Arterial Blood Glucose 150 H (65-95) mg/dL 03/19/20 03/19/20 03/19/20 Range/Units 05:03 10:47 11:41 Hgb (10.1-14.3) gm/dl MCH (28-32) pg RDW (13.2-15.2) % APTT (24.2-36.6) Sec. ABG pH 7.231 L (7.320-7.450) POC ABG pCO2 67.5 H (32.0-48.0) mmHg POC ABG pO2 142.4 H (83-108) mmHg ABG Hemoglobin 9.7 L (12.0-17.5) ABG Sodium 134.8 L (136.0-145.0) mmol/L ABG Potassium 4.8 H (3.40-4.50) mmol/L ABG Glucose 160 H (65-95) mg/dL Carboxyhemoglobin 1.6 H (0.5-1.5) BUN (7-17) mg/dL Creatinine (0.6-1.2) mg/dL Glucose (65-100) mg/dL POC Glucose 123 H 153 H (70-105) mg/dL Arterial Blood Glucose 160 H (65-95) mg/dL 03/19/20 03/19/20 03/19/20 Range/Units 14:00 14:00 14:00 Hgb 10.0 L (10.1-14.3) gm/dl MCH 26 L (28-32) pg RDW 20.5 H (13.2-15.2) % APTT 22.4 L (24.2-36.6) Sec. ABG pH (7.320-7.450) POC ABG pCO2 (32.0-48.0) mmHg POC ABG pO2 (83-108) mmHg ABG Hemoglobin (12.0-17.5) ABG Sodium (136.0-145.0) mmol/L ABG Potassium (3.40-4.50) mmol/L ABG Glucose (65-95) mg/dL Carboxyhemoglobin (0.5-1.5) BUN 42 H (7-17) mg/dL Creatinine 2.5 H D (0.6-1.2) mg/dL Glucose 235 H (65-100) mg/dL POC Glucose (70-105) mg/dL Arterial Blood Glucose (65-95) mg/dL HEART Score - HEART Score Troponin: Troponin T 0.017 ng/mL (0.00-0.029) 03/14/20 09:17
[2020-03-19] MEDS: SCOPOLAMINE TRANSDERMAL PATCH 72 HR TD SCH (16:27)
--- NOTE | 2020-03-19 16:33 | Progress Note ---
Assessment and Plan Cultures: Blood culture 03/09/2020 pending Urine culture 03/09/2020 pending Tracheal aspirate culture 03/13/2020 staph aureus A/P: 29-year-old female past medical history morbid obesity, obesity hypoventilation syndrome, diabetes admitted with shortness of breath #COVID-19 pneumonia: Diagnosed over 2 weeks ago, as such not a candidate for remdesivir. Given that her ferritin is normal, less likely to be in cytokine storm. Procalcitonin slightly elevated at 0.3 #Acute hypoxemic respiratory failure: Likely secondary to COVID-19 infection versus CHF versus bacterial pneumonia. Currently on intubated #Diabetes: tight glycemic control for best outcomes. #Morbid obesity: Associated with worse outcomes, recommend diet modifications #CHF: acute volume overload #PE: non-occlusive. Recs: -Continue vancomycin to complete 10 days. Goal trough 10-20. Increase duration due to CT findings. Dr. Ramirez taking over tomorrow Thank you for the consult, we will continue to follow. Freida Koch MD [facility], [place] [facility] ([facility]) O: [phone] F: [phone] Subjective Date of service: 03/19/20 Principal diagnosis: Cardiac arrest; Ac. hypoxemic resp failure; COVID 19 infxn; Pulm HTN; OHS Interval history: Afebrile, normal white count. Remains ventilated Imaging personally reviewed: CTA: Suspected small pulmonary embolus on the right. Positive for multifocal pneumonia. Objective - Exam Narrative Exam: Physical exam deferred due to PPE conservation strategy. Please refer to primary team's note. - Constitutional Vitals: Vital Signs Temp Pulse Resp BP Pulse Ox 98.2 F 80 20 144/54 94 03/19/20 03:32 03/19/20 15:00 03/19/20 15:00 03/19/20 15:00 03/19/20 15:00 Temperature -Last 24 Hours Temperature 98.2 F Temperature 97.7 F Temperature 98.8 F - Labs CBC & Chem 7: 03/19/20 14:00 03/19/20 14:00 Labs: Abnormal lab results 03/18/20 03/18/20 03/19/20 Range/Units 17:11 23:18 04:41 Hgb (10.1-14.3) gm/dl MCH (28-32) pg RDW (13.2-15.2) % APTT (24.2-36.6) Sec. ABG pH 7.041 L (7.320-7.450) POC ABG pCO2 100.4 H (32.0-48.0) mmHg POC ABG pO2 (83-108) mmHg ABG Hemoglobin 11.2 L (12.0-17.5) ABG Sodium 135.8 L (136.0-145.0) mmol/L ABG Potassium 5.3 H (3.40-4.50) mmol/L ABG Glucose 150 H (65-95) mg/dL Carboxyhemoglobin (0.5-1.5) BUN (7-17) mg/dL Creatinine (0.6-1.2) mg/dL Glucose (65-100) mg/dL POC Glucose 155 H 142 H (70-105) mg/dL Arterial Blood Glucose 150 H (65-95) mg/dL 03/19/20 03/19/20 03/19/20 Range/Units 05:03 10:47 11:41 Hgb (10.1-14.3) gm/dl MCH (28-32) pg RDW (13.2-15.2) % APTT (24.2-36.6) Sec. ABG pH 7.231 L (7.320-7.450) POC ABG pCO2 67.5 H (32.0-48.0) mmHg POC ABG pO2 142.4 H (83-108) mmHg ABG Hemoglobin 9.7 L (12.0-17.5) ABG Sodium 134.8 L (136.0-145.0) mmol/L ABG Potassium 4.8 H (3.40-4.50) mmol/L ABG Glucose 160 H (65-95) mg/dL Carboxyhemoglobin 1.6 H (0.5-1.5) BUN (7-17) mg/dL Creatinine (0.6-1.2) mg/dL Glucose (65-100) mg/dL POC Glucose 123 H 153 H (70-105) mg/dL Arterial Blood Glucose 160 H (65-95) mg/dL 03/19/20 03/19/20 03/19/20 Range/Units 14:00 14:00 14:00 Hgb 10.0 L (10.1-14.3) gm/dl MCH 26 L (28-32) pg RDW 20.5 H (13.2-15.2) % APTT 22.4 L (24.2-36.6) Sec. ABG pH (7.320-7.450) POC ABG pCO2 (32.0-48.0) mmHg POC ABG pO2 (83-108) mmHg ABG Hemoglobin (12.0-17.5) ABG Sodium (136.0-145.0) mmol/L ABG Potassium (3.40-4.50) mmol/L ABG Glucose (65-95) mg/dL Carboxyhemoglobin (0.5-1.5) BUN 42 H (7-17) mg/dL Creatinine 2.5 H D (0.6-1.2) mg/dL Glucose 235 H (65-100) mg/dL POC Glucose (70-105) mg/dL Arterial Blood Glucose (65-95) mg/dL
--- NOTE | 2020-03-19 16:52 | XRay Report ---
ABDOMEN 1 VIEW INDICATION / CLINICAL INFORMATION: ngt placement. COMPARISON: KUB from 03/13/2020. FINDINGS: TUBES / LINES: An NG tube terminates over the distal gastric body. BOWEL GAS PATTERN: No significant abnormality. FREE AIR / EXTRALUMINAL GAS: None seen. ADDITIONAL FINDINGS: No significant additional findings. IMPRESSION: Satisfactory positioning of the NG tube. Signer Name: Aguilar Smith MD Signed: 03/19/2020 4:48 PM Workstation Name: [id number]
--- NOTE | 2020-03-19 17:50 | XRay Report ---
CHEST 1 VIEW INDICATION / CLINICAL INFORMATION: ETT position post re-intubation. COMPARISON: CTA chest and chest radiograph 03/19/2020 FINDINGS: SUPPORT DEVICES: Endotracheal tube tip projects approximately 2-3 cm above the level of anna. HEART / MEDIASTINUM: Stable. LUNGS / PLEURA: Patchy and confluent consolidative opacification of the right lung which is more prom inent centrally. Left lung is completely opacified possibly representing combination of atelectasis/c onsolidation and pleural effusion. Small right-sided pleural effusion present. No pneumothorax. ADDITIONAL FINDINGS: No significant additional findings. IMPRESSION: 1. Multifocal pneumonia versus pulmonary edema with complete white out of the left lung possibly seco ndary to consolidation and/or pleural effusion. 2. Endotracheal tube tip approximately 2-3 cm above the level of the anna. Consider retracting 2-3 cm and repeating imaging. Signer Name: David Mckinley MD Signed: 03/19/2020 5:46 PM Workstation Name: [id number]
[2020-03-19] MEDS: GLYCOPYRROLATE 2 MG TAB PO SCH (20:11)
[2020-03-19] MEDS: INSULIN GLARGINE 100 UNITS/ML SUB-Q SCH (21:00)
[2020-03-20] MEDS: fentaNYL DRIP Premix 2,000 MCG/100 ML BAG IV SCH ×7 (02:45→21:16)
[2020-03-20] MEDS: INSULIN LISPRO 100 UNIT/ML VIAL 3 mL SUB-Q SCH ×3 (05:15→17:46)
--- NOTE | 2020-03-20 05:21 | XRay Report ---
CHEST 1 VIEW INDICATION / CLINICAL INFORMATION: follow up respiratory failure. COMPARISON: Chest radiograph 03/19/2020 FINDINGS: SUPPORT DEVICES: Stable position of endotracheal tube, enteric tube, and right-sided PICC. HEART / MEDIASTINUM: Stable, partially obscured. LUNGS / PLEURA: There is again complete opacification of the left lung, and moderate hazy opacity thr oughout the right lung. No pneumothorax. ADDITIONAL FINDINGS: No significant additional findings. IMPRESSION: 1. No significant change. Signer Name: Umm Chandler MD Signed: 03/20/2020 5:14 AM Workstation Name: [id number]
[2020-03-20 05:45] LABS: Calcium 8.7 mg/dL (8.4-10.2)
[2020-03-20] MEDS: HEPARIN/ 0.45% NACL DRIP 25,000 UNIT/500 ML BAG IV SCH ×2 (06:06→17:50)
[2020-03-20] MEDS: FUROSEMIDE 40 MG/4 ML INJ IV SCH ×2 (06:33→17:47)
[2020-03-20] MEDS: GLYCOPYRROLATE 2 MG TAB PO SCH ×3 (08:46→21:05)
[2020-03-20] MEDS: POLYETHYLENE GLYCOL 3350 17 GM POWDER PO SCH (10:08)
[2020-03-20] MEDS: SENNOSIDES/DOCUSATE SODIUM 8.6/50 MG TAB PO SCH ×2 (10:08→21:06)
[2020-03-20] MEDS: LANSOPRAZOLE 30 MG SOLUTAB FEEDTUBE SCH (10:08)
[2020-03-20] MEDS: QUEtiapine 100 MG TAB PO SCH ×2 (10:13→21:05)
[2020-03-20] MEDS ORDERED: SODIUM CHLORIDE 0.9% 500 ML 500 ML IV ONE (12:07)
--- NOTE | 2020-03-20 12:22 | XRay Report ---
CHEST 1 VIEW 03/20/2020 11:08 AM INDICATION / CLINICAL INFORMATION: ETT placement. COMPARISON: 4:55 AM same day FINDINGS: SUPPORT DEVICES: ET tube now has tip 5.5 cm above anna. Right PICC line and NG tube again project i n expected position HEART / MEDIASTINUM: Remains moderately enlarged LUNGS / PLEURA: Bilateral pleural-parenchymal opacities have improved since prior study No pneumotho rax. ADDITIONAL FINDINGS: No significant additional findings. IMPRESSION: 1. Improving bilateral parenchymal disease Signer Name: Devin Garcia MD Signed: 03/20/2020 12:17 PM Workstation Name: [id number]
--- NOTE | 2020-03-20 13:42 | Progress Note ---
Assessment and Plan Cardiopulmoanry arrest with ROSC Acute hypoxemic respiratory failure on MVS COVID 19 infection MICHELLE Extreme obesity Pulmonary HTN Obesity hypoventilation syndrome - pulled ETT to 23-24 cm DORIS - repeat CXR and address - increased peep to 14 - 500 mls IVNS bolus then run at 75 mls/hr X 2 liters - get Urine lytes re: MICHELLE - repeat ABG at 9 pm tonight - continue restraints (physical and chemical re: sedation) - placed difficult airway sign - continue full dose IV heparin for anticoagulation - continue Seroquel 300 mg BID for sedation / anxiolysis - continue care as below otherwise; - continue bowel regimen - adjust Geodon dose based on response - prn gentle diuresis; monitor output and follow renal function/electrolytes - contact and airborne isolation per facility protocols for COVID - Daily SAT's and SBT assessment as tolerated - continue accuchecks with glycemic control per SSI (While critically ill target blood glucose of 140-180 mg/dL; avoid hypoglycemia) - sedation prn for target RASS -1 to -2 - continue to wean supplemental oxygen for target O2 sat's > 92% acutely - VAP bundle addressed - continue lung protective strategies - continue bronchodilators with pulmonary hygiene per RT - wean per pulmonary driven protocols otherwise - Varela catheter in this critically ill patient - Conservative fluid management - avoid nephrotoxins, renally dose all medications - Empiric antibiotics to include HAP coverage (on Vanc and Cefepime); adjust per ID recommendations and clinical response - prn analgesia per CPOT score - Maintenance of sleep-wake cycle, avoid delirium - continue enteral nutritional support at goal rate as tolerated - G.I. & VTE prophylaxis withy Famotidine and Lovenox - PT/OT/ROM exercises - continue mobility protocols for pressure ulcer prophylaxis - Monitor hemodynamics closely - continue other care per attending / other consultants - discharge planning ongoing concurrently .... Re-evaluate in am & prn CONDITION: CRITICAL PROGNOSIS: GUARDED CODE STATUS: FULL CODE The high probability of a clinically significant, sudden or life-threatening deterioration of the [respiratory, cardiovascular and neurologic] system (s) required my full and direct attention, intervention and personal management. The aggregate critical care time was [35] minutes without overlap. Time includes sp ent on; [x] Data Review and interpretation [x] Patient assessment and monitoring of vital signs [x] Documentation [x] Medication orders and management Subjective Date of service: 03/20/20 Principal diagnosis: Cardiac arrest; Ac. hypoxemic resp failure; COVID 19 infxn; Pulm HTN; OHS Interval history: Patient is seen today for: Cardiopulmoanry arrest with ROSC; Acute hypoxemic respiratory failure on MVS; COVID; Extreme obesity; Pulmonary HTN; Obesity hypoventilation syndrome Seen and examined at bedside; 24hour events reviewed; nursing and respiratory care staff consulted; no adverse overnight events reported to me; resting peacefully in bed; remains on MVS; hypoxemia worsened and also hypotension; remains on Levophed at 6 mics/min; sedated; no emesis or overt aspiration reported Objective Vital Signs - 12hr 03/20/20 03/20/20 03/20/20 01:45 02:00 02:15 Temperature Pulse Rate 73 73 73 Pulse Rate [ From Monitor] Respiratory 25 H 25 H 25 H Rate Blood Pressure 106/58 112/55 120/58 O2 Sat by Pulse 98 98 99 Oximetry 03/20/20 03/20/20 03/20/20 02:30 02:45 03:00 Temperature Pulse Rate 72 73 74 Pulse Rate [ From Monitor] Respiratory 25 H 25 H 25 H Rate Blood Pressure 123/54 118/54 102/45 O2 Sat by Pulse 98 98 98 Oximetry 03/20/20 03/20/20 03/20/20 03:12 03:15 03:30 Temperature 98.7 F Pulse Rate 75 76 Pulse Rate [ From Monitor] Respiratory 25 H 25 H Rate Blood Pressure 108/48 111/48 O2 Sat by Pulse 97 96 Oximetry 03/20/20 03/20/20 03/20/20 03:45 04:00 04:15 Temperature Pulse Rate 74 75 74 Pulse Rate [ 73 From Monitor] Respiratory 25 H 25 H 25 H Rate Blood Pressure 108/48 111/50 117/51 O2 Sat by Pulse 98 96 97 Oximetry 03/20/20 03/20/20 03/20/20 04:22 04:30 04:45 Temperature Pulse Rate 76 77 Pulse Rate [ From Monitor] Respiratory 25 H 25 H 25 H Rate Blood Pressure 104/46 112/50 O2 Sat by Pulse 98 97 Oximetry 03/20/20 03/20/20 03/20/20 05:00 05:06 05:15 Temperature Pulse Rate 81 86 84 Pulse Rate [ From Monitor] Respiratory 25 H 25 H Rate Blood Pressure 93/31 93/31 93/31 O2 Sat by Pulse 96 98 99 Oximetry 03/20/20 03/20/20 03/20/20 05:30 05:36 05:45 Temperature 98.7 F Pulse Rate 84 87 Pulse Rate [ From Monitor] Respiratory 25 H 25 H Rate Blood Pressure 88/32 80/38 O2 Sat by Pulse 98 100 Oximetry 03/20/20 03/20/20 03/20/20 06:00 06:15 06:30 Temperature Pulse Rate 85 80 85 Pulse Rate [ From Monitor] Respiratory 24 25 H 25 H Rate Blood Pressure 78/39 94/40 96/43 O2 Sat by Pulse 99 100 94 Oximetry 03/20/20 03/20/20 03/20/20 06:45 07:00 07:15 Temperature Pulse Rate 86 87 90 Pulse Rate [ From Monitor] Respiratory 25 H 25 H 25 H Rate Blood Pressure 87/39 88/40 88/40 O2 Sat by Pulse 96 97 98 Oximetry 03/20/20 03/20/20 03/20/20 07:30 07:45 08:00 Temperature 98.1 F Pulse Rate 88 85 86 Pulse Rate [ 86 From Monitor] Respiratory 25 H 25 H 25 H Rate Blood Pressure 86/33 98/32 94/42 O2 Sat by Pulse 97 93 97 Oximetry 03/20/20 03/20/20 03/20/20 08:15 08:30 08:45 Temperature Pulse Rate 82 81 81 Pulse Rate [ From Monitor] Respiratory 25 H 25 H 25 H Rate Blood Pressure 90/42 93/45 90/39 O2 Sat by Pulse 100 100 94 Oximetry 03/20/20 03/20/20 03/20/20 09:00 09:15 09:30 Temperature Pulse Rate 75 82 82 Pulse Rate [ From Monitor] Respiratory 25 H 18 25 H Rate Blood Pressure 94/30 88/40 78/31 O2 Sat by Pulse 85 60 L Oximetry 03/20/20 03/20/20 03/20/20 09:45 10:00 10:15 Temperature Pulse Rate 80 95 H 94 H Pulse Rate [ From Monitor] Respiratory 25 H 24 25 H Rate Blood Pressure 93/27 90/24 85/34 O2 Sat by Pulse 77 L 79 L 92 Oximetry 03/20/20 03/20/20 03/20/20 10:21 10:30 10:45 Temperature Pulse Rate 102 H 106 H Pulse Rate [ From Monitor] Respiratory 17 13 Rate Blood Pressure 83/30 94/43 O2 Sat by Pulse 92 98 95 Oximetry 03/20/20 03/20/20 03/20/20 11:00 11:15 11:30 Temperature Pulse Rate 107 H 99 H 92 H Pulse Rate [ From Monitor] Respiratory 18 25 H 25 H Rate Blood Pressure 85/29 91/31 82/32 O2 Sat by Pulse 91 91 89 Oximetry 03/20/20 03/20/20 03/20/20 11:45 12:00 12:06 Temperature 99.1 F Pulse Rate 92 H 102 H 108 H Pulse Rate [ 109 H From Monitor] Respiratory 25 H 25 H Rate Blood Pressure 81/32 80/29 80/29 O2 Sat by Pulse 90 98 89 Oximetry Constitutional: appears uncomfortable, other (young obese female with moderately increased respiratory effort at rest on MVS) Eyes: non-icteric ENT: oropharynx moist, oropharyngeal exudate pre (moderate), other (orally intubated, ETT 24 cm ) Neck: supple, no lymphadenopathy, other (large circumference) Effort: mildly labored Ascultation: Left: diminished breath sounds, Bilateral: rhonchi Percussion: Bilateral: not dull Cardiovascular: regular rate and rhythm, other (S1,S2) Gastrointestinal: normoactive bowel sounds, soft, non-distended (protuberant), other (obese) Integumentary: rash Extremities: no cyanosis, no edema, pulses normal, cool Neurologic: non-focal exam (moves all extremities, holding onto the rails), pupils equal and round, motor strength normal and, unable to assess Psychiatric: other (unable to assess) CBC and BMP: 03/19/20 14:00 03/20/20 05:00 ABG, PT/INR, D-dimer: ABG ABG pH 7.361 (7.320-7.450) 03/19/20 21:29 POC ABG pCO2 47.7 mmHg (32.0-48.0) 03/19/20 21:29 ABG pCO2 44.2 mm Hg 03/14/20 06:15 POC ABG pO2 61.2 mmHg (83-108) L 03/19/20 21:29 ABG pO2 92.8 mm Hg (80.0-90.0) H 03/14/20 06:15 POC ABG HCO3 26.4 03/19/20 21:29 ABG O2 Saturation 97.6 % (95.0-99.0) 03/14/20 06:15 PT/INR, D-dimer PT 13.9 Sec. (12.2-14.9) 03/19/20 14:00 INR 1.08 (0.87-1.13) 03/19/20 14:00 D-Dimer 1042.81 ng/mlDDU (0-234) H 03/09/20 08:27 Abnormal lab findings: Abnormal Labs 03/09/20 03/09/20 03/09/20 08:27 08:27 08:27 WBC 15.8 H RBC 5.43 H Hgb Hct MCH 24 L MCHC RDW 19.3 H Lymph % (Auto) [place] % (Auto) 8.2 H [place] # (Auto) 1.3 H Seg Neutrophils % 70.4 H Seg Neutrophils # 11.1 H APTT D-Dimer Heparin Anti-Xa Level ABG pH POC ABG pCO2 POC ABG pO2 ABG pO2 ABG HCO3 ABG Base Excess ABG Hemoglobin ABG Oxyhemoglobin ABG Sodium ABG Potassium ABG Glucose Oxyhemoglobin Carboxyhemoglobin Potassium Chloride 97.1 L Carbon Dioxide BUN 29 H Creatinine Glucose 178 H POC Glucose Hemoglobin A1c Lactic Acid 3.70 H* Total Bilirubin AST ALT Lactate Dehydrogenase 369 H C-Reactive Protein 3.00 H NT-Pro-B Natriuret Pep Total Protein Albumin Triglycerides Arterial Blood Glucose Arterial Blood Ionized Calcium Random Vancomycin Coronavirus (PCR) SARS-CoV-2 IgG Ab 03/09/20 03/09/20 03/09/20 08:27 08:27 08:27 WBC RBC Hgb Hct MCH MCHC RDW Lymph % (Auto) [place] % (Auto) [place] # (Auto) Seg Neutrophils % Seg Neutrophils # APTT D-Dimer 1042.81 H Heparin Anti-Xa Level ABG pH POC ABG pCO2 POC ABG pO2 ABG pO2 ABG HCO3 ABG Base Excess ABG Hemoglobin ABG Oxyhemoglobin ABG Sodium ABG Potassium ABG Glucose Oxyhemoglobin Carboxyhemoglobin Potassium Chloride Carbon Dioxide BUN Creatinine Glucose POC Glucose Hemoglobin A1c 8.0 H Lactic Acid Total Bilirubin AST ALT Lactate Dehydrogenase C-Reactive Protein NT-Pro-B Natriuret Pep 2914 H Total Protein Albumin Triglycerides Arterial Blood Glucose Arterial Blood Ionized Calcium Random Vancomycin Coronavirus (PCR) SARS-CoV-2 IgG Ab 03/09/20 03/09/20 03/10/20 08:43 23:04 05:23 WBC RBC Hgb Hct MCH MCHC RDW Lymph % (Auto) [place] % (Auto) [place] # (Auto) Seg Neutrophils % Seg Neutrophils # APTT D-Dimer Heparin Anti-Xa Level ABG pH POC ABG pCO2 POC ABG pO2 ABG pO2 ABG HCO3 ABG Base Excess ABG Hemoglobin ABG Oxyhemoglobin ABG Sodium ABG Potassium ABG Glucose Oxyhemoglobin Carboxyhemoglobin Potassium Chloride Carbon Dioxide BUN Creatinine Glucose POC Glucose 361 H Hemoglobin A1c Lactic Acid 6.80 H* Total Bilirubin AST ALT Lactate Dehydrogenase C-Reactive Protein NT-Pro-B Natriuret Pep Total Protein Albumin Triglycerides Arterial Blood Glucose Arterial Blood Ionized Calcium Random Vancomycin Coronavirus (PCR) Positive A SARS-CoV-2 IgG Ab 03/10/20 03/10/20 03/10/20 08:19 10:49 17:11 WBC RBC Hgb Hct MCH MCHC RDW Lymph % (Auto) [place] % (Auto) [place] # (Auto) Seg Neutrophils % Seg Neutrophils # APTT D-Dimer Heparin Anti-Xa Level ABG pH POC ABG pCO2 POC ABG pO2 ABG pO2 ABG HCO3 ABG Base Excess ABG Hemoglobin ABG Oxyhemoglobin ABG Sodium ABG Potassium ABG Glucose Oxyhemoglobin Carboxyhemoglobin Potassium Chloride Carbon Dioxide BUN Creatinine Glucose POC Glucose 371 H 423 H 373 H Hemoglobin A1c Lactic Acid Total Bilirubin AST ALT Lactate Dehydrogenase C-Reactive Protein NT-Pro-B Natriuret Pep Total Protein Albumin Triglycerides Arterial Blood Glucose Arterial Blood Ionized Calcium Random Vancomycin Coronavirus (PCR) SARS-CoV-2 IgG Ab 03/11/20 03/11/20 03/11/20 00:29 07:52 13:12 WBC RBC Hgb Hct MCH MCHC RDW Lymph % (Auto) [place] % (Auto) [place] # (Auto) Seg Neutrophils % Seg Neutrophils # APTT D-Dimer Heparin Anti-Xa Level ABG pH POC ABG pCO2 POC ABG pO2 ABG pO2 ABG HCO3 ABG Base Excess ABG Hemoglobin ABG Oxyhemoglobin ABG Sodium ABG Potassium ABG Glucose Oxyhemoglobin Carboxyhemoglobin Potassium Chloride Carbon Dioxide BUN Creatinine Glucose POC Glucose 242 H 233 H 352 H Hemoglobin A1c Lactic Acid Total Bilirubin AST ALT Lactate Dehydrogenase C-Reactive Protein NT-Pro-B Natriuret Pep Total Protein Albumin Triglycerides Arterial Blood Glucose Arterial Blood Ionized Calcium Random Vancomycin Coronavirus (PCR) SARS-CoV-2 IgG Ab 03/11/20 03/11/20 03/12/20 15:24 22:54 08:22 WBC RBC Hgb Hct MCH MCHC RDW Lymph % (Auto) [place] % (Auto) [place] # (Auto) Seg Neutrophils % Seg Neutrophils # APTT D-Dimer Heparin Anti-Xa Level ABG pH POC ABG pCO2 POC ABG pO2 ABG pO2 ABG HCO3 ABG Base Excess ABG Hemoglobin ABG Oxyhemoglobin ABG Sodium ABG Potassium ABG Glucose Oxyhemoglobin Carboxyhemoglobin Potassium Chloride Carbon Dioxide BUN Creatinine Glucose POC Glucose 386 H 418 H 431 H Hemoglobin A1c Lactic Acid Total Bilirubin AST ALT Lactate Dehydrogenase C-Reactive Protein NT-Pro-B Natriuret Pep Total Protein Albumin Triglycerides Arterial Blood Glucose Arterial Blood Ionized Calcium Random Vancomycin Coronavirus (PCR) SARS-CoV-2 IgG Ab 03/12/20 03/12/20 03/12/20 11:34 16:53 22:20 WBC RBC Hgb Hct MCH MCHC RDW Lymph % (Auto) [place] % (Auto) [place] # (Auto) Seg Neutrophils % Seg Neutrophils # APTT D-Dimer Heparin Anti-Xa Level ABG pH POC ABG pCO2 POC ABG pO2 ABG pO2 ABG HCO3 ABG Base Excess ABG Hemoglobin ABG Oxyhemoglobin ABG Sodium ABG Potassium ABG Glucose Oxyhemoglobin Carboxyhemoglobin Potassium Chloride Carbon Dioxide BUN Creatinine Glucose POC Glucose 310 H 358 H 295 H Hemoglobin A1c Lactic Acid Total Bilirubin AST ALT Lactate Dehydrogenase C-Reactive Protein NT-Pro-B Natriuret Pep Total Protein Albumin Triglycerides Arterial Blood Glucose Arterial Blood Ionized Calcium Random Vancomycin Coronavirus (PCR) SARS-CoV-2 IgG Ab 03/13/20 03/13/20 03/13/20 05:48 09:15 12:09 WBC 18.3 H RBC Hgb Hct MCH 24 L MCHC 29 L RDW 18.9 H Lymph % (Auto) 7.8 L [place] % (Auto) 9.7 H [place] # (Auto) 1.8 H Seg Neutrophils % 82.0 H Seg Neutrophils # 15.0 H APTT D-Dimer Heparin Anti-Xa Level ABG pH 7.327 L POC ABG pCO2 POC ABG pO2 ABG pO2 73.0 L ABG HCO3 39.3 H ABG Base Excess 10.8 H ABG Hemoglobin 11.2 L ABG Oxyhemoglobin ABG Sodium ABG Potassium ABG Glucose Oxyhemoglobin 93.4 L Carboxyhemoglobin Potassium Chloride Carbon Dioxide BUN Creatinine Glucose POC Glucose 216 H Hemoglobin A1c Lactic Acid Total Bilirubin AST ALT Lactate Dehydrogenase C-Reactive Protein NT-Pro-B Natriuret Pep Total Protein Albumin Triglycerides Arterial Blood Glucose Arterial Blood Ionized Calcium Random Vancomycin Coronavirus (PCR) SARS-CoV-2 IgG Ab 03/13/20 03/13/20 03/13/20 12:09 12:11 17:23 WBC RBC Hgb Hct MCH MCHC RDW Lymph % (Auto) [place] % (Auto) [place] # (Auto) Seg Neutrophils % Seg Neutrophils # APTT D-Dimer Heparin Anti-Xa Level ABG pH POC ABG pCO2 POC ABG pO2 ABG pO2 ABG HCO3 ABG Base Excess ABG Hemoglobin ABG Oxyhemoglobin ABG Sodium ABG Potassium ABG Glucose Oxyhemoglobin Carboxyhemoglobin Potassium 5.1 H Chloride Carbon Dioxide 37 H D BUN Creatinine Glucose 154 H POC Glucose 148 H 217 H Hemoglobin A1c Lactic Acid Total Bilirubin AST 47 H ALT 128 H Lactate Dehydrogenase C-Reactive Protein NT-Pro-B Natriuret Pep Total Protein 5.9 L Albumin 3.0 L Triglycerides Arterial Blood Glucose Arterial Blood Ionized Calcium Random Vancomycin Coronavirus (PCR) SARS-CoV-2 IgG Ab 03/14/20 03/14/20 03/14/20 06:15 06:55 09:17 WBC 14.9 H RBC Hgb Hct MCH 25 L MCHC RDW 19.1 H Lymph % (Auto) 9.5 L [place] % (Auto) [place] # (Auto) 0.9 H Seg Neutrophils % 83.8 H Seg Neutrophils # 12.5 H APTT D-Dimer Heparin Anti-Xa Level ABG pH 7.544 H POC ABG pCO2 POC ABG pO2 ABG pO2 92.8 H ABG HCO3 37.3 H ABG Base Excess 13.5 H ABG Hemoglobin 10.5 L ABG Oxyhemoglobin ABG Sodium ABG Potassium ABG Glucose Oxyhemoglobin Carboxyhemoglobin Potassium Chloride Carbon Dioxide BUN Creatinine Glucose POC Glucose 182 H Hemoglobin A1c Lactic Acid Total Bilirubin AST ALT Lactate Dehydrogenase C-Reactive Protein NT-Pro-B Natriuret Pep Total Protein Albumin Triglycerides Arterial Blood Glucose Arterial Blood Ionized Calcium Random Vancomycin Coronavirus (PCR) SARS-CoV-2 IgG Ab 03/14/20 03/14/20 03/14/20 09:17 11:43 17:47 WBC RBC Hgb Hct MCH MCHC RDW Lymph % (Auto) [place] % (Auto) [place] # (Auto) Seg Neutrophils % Seg Neutrophils # APTT D-Dimer Heparin Anti-Xa Level ABG pH POC ABG pCO2 POC ABG pO2 ABG pO2 ABG HCO3 ABG Base Excess ABG Hemoglobin ABG Oxyhemoglobin ABG Sodium ABG Potassium ABG Glucose Oxyhemoglobin Carboxyhemoglobin Potassium Chloride Carbon Dioxide 34 H BUN Creatinine 0.5 L Glucose 204 H POC Glucose 283 H 254 H Hemoglobin A1c Lactic Acid Total Bilirubin 2.60 H AST 82 H ALT 152 H Lactate Dehydrogenase C-Reactive Protein NT-Pro-B Natriuret Pep Total Protein 5.7 L Albumin 3.0 L Triglycerides Arterial Blood Glucose Arterial Blood Ionized Calcium Random Vancomycin Coronavirus (PCR) SARS-CoV-2 IgG Ab 03/14/20 03/15/20 03/15/20 23:59 03:08 05:52 WBC RBC Hgb Hct MCH MCHC RDW Lymph % (Auto) [place] % (Auto) [place] # (Auto) Seg Neutrophils % Seg Neutrophils # APTT D-Dimer Heparin Anti-Xa Level ABG pH 7.536 H POC ABG pCO2 POC ABG pO2 ABG pO2 ABG HCO3 ABG Base Excess ABG Hemoglobin 10.7 L ABG Oxyhemoglobin ABG Sodium 135.2 L ABG Potassium ABG Glucose 317 H Oxyhemoglobin Carboxyhemoglobin Potassium Chloride Carbon Dioxide BUN Creatinine Glucose POC Glucose 293 H 293 H Hemoglobin A1c Lactic Acid Total Bilirubin AST ALT Lactate Dehydrogenase C-Reactive Protein NT-Pro-B Natriuret Pep Total Protein Albumin Triglycerides Arterial Blood Glucose 317 H Arterial Blood Ionized Calcium 4.5 L Random Vancomycin Coronavirus (PCR) SARS-CoV-2 IgG Ab 03/15/20 03/15/20 03/15/20 13:29 17:43 23:26 WBC RBC Hgb Hct MCH MCHC RDW Lymph % (Auto) [place] % (Auto) [place] # (Auto) Seg Neutrophils % Seg Neutrophils # APTT D-Dimer Heparin Anti-Xa Level ABG pH POC ABG pCO2 POC ABG pO2 ABG pO2 ABG HCO3 ABG Base Excess ABG Hemoglobin ABG Oxyhemoglobin ABG Sodium ABG Potassium ABG Glucose Oxyhemoglobin Carboxyhemoglobin Potassium Chloride Carbon Dioxide BUN Creatinine Glucose POC Glucose 299 H 327 H 325 H Hemoglobin A1c Lactic Acid Total Bilirubin AST ALT Lactate Dehydrogenase C-Reactive Protein NT-Pro-B Natriuret Pep Total Protein Albumin Triglycerides Arterial Blood Glucose Arterial Blood Ionized Calcium Random Vancomycin Coronavirus (PCR) SARS-CoV-2 IgG Ab 03/16/20 03/16/20 03/16/20 01:28 04:44 05:26 WBC RBC Hgb Hct MCH MCHC RDW Lymph % (Auto) [place] % (Auto) [place] # (Auto) Seg Neutrophils % Seg Neutrophils # APTT D-Dimer Heparin Anti-Xa Level ABG pH 7.540 H POC ABG pCO2 POC ABG pO2 ABG pO2 ABG HCO3 ABG Base Excess ABG Hemoglobin 10.5 L ABG Oxyhemoglobin ABG Sodium ABG Potassium ABG Glucose 312 H Oxyhemoglobin Carboxyhemoglobin Potassium Chloride Carbon Dioxide BUN 18 H Creatinine Glucose 330 H POC Glucose 264 H Hemoglobin A1c Lactic Acid Total Bilirubin AST ALT Lactate Dehydrogenase C-Reactive Protein NT-Pro-B Natriuret Pep Total Protein Albumin Triglycerides Arterial Blood Glucose 312 H Arterial Blood Ionized Calcium Random Vancomycin Coronavirus (PCR) SARS-CoV-2 IgG Ab 03/16/20 03/16/20 03/16/20 11:58 17:51 17:54 WBC RBC Hgb Hct MCH MCHC RDW Lymph % (Auto) [place] % (Auto) [place] # (Auto) Seg Neutrophils % Seg Neutrophils # APTT D-Dimer Heparin Anti-Xa Level ABG pH POC ABG pCO2 58.9 H POC ABG pO2 142.4 H ABG pO2 ABG HCO3 ABG Base Excess ABG Hemoglobin 11.6 L ABG Oxyhemoglobin ABG Sodium 135.9 L ABG Potassium 4.9 H ABG Glucose 332 H Oxyhemoglobin Carboxyhemoglobin Potassium Chloride Carbon Dioxide BUN Creatinine Glucose POC Glucose 196 H 285 H Hemoglobin A1c Lactic Acid Total Bilirubin AST ALT Lactate Dehydrogenase C-Reactive Protein NT-Pro-B Natriuret Pep Total Protein Albumin Triglycerides Arterial Blood Glucose 332 H Arterial Blood Ionized Calcium Random Vancomycin Coronavirus (PCR) SARS-CoV-2 IgG Ab 03/16/20 03/16/20 03/17/20 17:56 23:43 03:13 WBC RBC Hgb Hct MCH MCHC RDW Lymph % (Auto) [place] % (Auto) [place] # (Auto) Seg Neutrophils % Seg Neutrophils # APTT D-Dimer Heparin Anti-Xa Level ABG pH POC ABG pCO2 POC ABG pO2 ABG pO2 ABG HCO3 ABG Base Excess ABG Hemoglobin ABG Oxyhemoglobin ABG Sodium ABG Potassium ABG Glucose Oxyhemoglobin Carboxyhemoglobin Potassium Chloride Carbon Dioxide BUN Creatinine Glucose POC Glucose 258 H Hemoglobin A1c Lactic Acid Total Bilirubin AST ALT Lactate Dehydrogenase C-Reactive Protein NT-Pro-B Natriuret Pep Total Protein Albumin Triglycerides 252 H Arterial Blood Glucose Arterial Blood Ionized Calcium Random Vancomycin Coronavirus (PCR) SARS-CoV-2 IgG Ab Reactive A 03/17/20 03/17/20 03/17/20 05:33 11:12 11:55 WBC RBC Hgb 9.2 L Hct 29.7 L MCH 25 L MCHC RDW 19.9 H Lymph % (Auto) [place] % (Auto) [place] # (Auto) Seg Neutrophils % Seg Neutrophils # APTT D-Dimer Heparin Anti-Xa Level ABG pH POC ABG pCO2 POC ABG pO2 ABG pO2 ABG HCO3 ABG Base Excess ABG Hemoglobin ABG Oxyhemoglobin ABG Sodium ABG Potassium ABG Glucose Oxyhemoglobin Carboxyhemoglobin Potassium Chloride Carbon Dioxide BUN Creatinine Glucose POC Glucose 157 H 112 H Hemoglobin A1c Lactic Acid Total Bilirubin AST ALT Lactate Dehydrogenase C-Reactive Protein NT-Pro-B Natriuret Pep Total Protein Albumin Triglycerides Arterial Blood Glucose Arterial Blood Ionized Calcium Random Vancomycin Coronavirus (PCR) SARS-CoV-2 IgG Ab 03/17/20 03/17/20 03/17/20 11:55 11:55 17:20 WBC RBC Hgb Hct MCH MCHC RDW Lymph % (Auto) [place] % (Auto) [place] # (Auto) Seg Neutrophils % Seg Neutrophils # APTT D-Dimer Heparin Anti-Xa Level ABG pH POC ABG pCO2 POC ABG pO2 ABG pO2 ABG HCO3 ABG Base Excess ABG Hemoglobin 10.2 L ABG Oxyhemoglobin ABG Sodium ABG Potassium ABG Glucose 137 H Oxyhemoglobin Carboxyhemoglobin Potassium Chloride Carbon Dioxide BUN 21 H Creatinine 0.5 L Glucose 118 H POC Glucose 178 H Hemoglobin A1c Lactic Acid Total Bilirubin AST ALT Lactate Dehydrogenase C-Reactive Protein NT-Pro-B Natriuret Pep Total Protein Albumin Triglycerides Arterial Blood Glucose 137 H Arterial Blood Ionized Calcium Random Vancomycin Coronavirus (PCR) SARS-CoV-2 IgG Ab 03/18/20 03/18/20 03/18/20 00:16 03:33 05:48 WBC RBC Hgb Hct MCH MCHC RDW Lymph % (Auto) [place] % (Auto) [place] # (Auto) Seg Neutrophils % Seg Neutrophils # APTT D-Dimer Heparin Anti-Xa Level ABG pH 7.568 H POC ABG pCO2 30.6 L POC ABG pO2 167.6 H ABG pO2 ABG HCO3 ABG Base Excess ABG Hemoglobin 10.9 L ABG Oxyhemoglobin ABG Sodium 133.8 L ABG Potassium ABG Glucose 125 H Oxyhemoglobin Carboxyhemoglobin Potassium Chloride Carbon Dioxide BUN Creatinine Glucose POC Glucose 119 H 114 H Hemoglobin A1c Lactic Acid Total Bilirubin AST ALT Lactate Dehydrogenase C-Reactive Protein NT-Pro-B Natriuret Pep Total Protein Albumin Triglycerides Arterial Blood Glucose 125 H Arterial Blood Ionized Calcium Random Vancomycin Coronavirus (PCR) SARS-CoV-2 IgG Ab 03/18/20 03/18/20 03/18/20 11:46 17:11 23:18 WBC RBC Hgb Hct MCH MCHC RDW Lymph % (Auto) [place] % (Auto) [place] # (Auto) Seg Neutrophils % Seg Neutrophils # APTT D-Dimer Heparin Anti-Xa Level ABG pH POC ABG pCO2 POC ABG pO2 ABG pO2 ABG HCO3 ABG Base Excess ABG Hemoglobin ABG Oxyhemoglobin ABG Sodium ABG Potassium ABG Glucose Oxyhemoglobin Carboxyhemoglobin Potassium Chloride Carbon Dioxide BUN Creatinine Glucose POC Glucose 165 H 155 H 142 H Hemoglobin A1c Lactic Acid Total Bilirubin AST ALT Lactate Dehydrogenase C-Reactive Protein NT-Pro-B Natriuret Pep Total Protein Albumin Triglycerides Arterial Blood Glucose Arterial Blood Ionized Calcium Random Vancomycin Coronavirus (PCR) SARS-CoV-2 IgG Ab 03/19/20 03/19/20 03/19/20 04:41 05:03 10:47 WBC RBC Hgb Hct MCH MCHC RDW Lymph % (Auto) [place] % (Auto) [place] # (Auto) Seg Neutrophils % Seg Neutrophils # APTT D-Dimer Heparin Anti-Xa Level ABG pH 7.041 L 7.231 L POC ABG pCO2 100.4 H 67.5 H POC ABG pO2 142.4 H ABG pO2 ABG HCO3 ABG Base Excess ABG Hemoglobin 11.2 L 9.7 L ABG Oxyhemoglobin ABG Sodium 135.8 L 134.8 L ABG Potassium 5.3 H 4.8 H ABG Glucose 150 H 160 H Oxyhemoglobin Carboxyhemoglobin 1.6 H Potassium Chloride Carbon Dioxide BUN Creatinine Glucose POC Glucose 123 H Hemoglobin A1c Lactic Acid Total Bilirubin AST ALT Lactate Dehydrogenase C-Reactive Protein NT-Pro-B Natriuret Pep Total Protein Albumin Triglycerides Arterial Blood Glucose 150 H 160 H Arterial Blood Ionized Calcium Random Vancomycin Coronavirus (PCR) SARS-CoV-2 IgG Ab 03/19/20 03/19/20 03/19/20 11:41 14:00 14:00 WBC RBC Hgb 10.0 L Hct MCH 26 L MCHC RDW 20.5 H Lymph % (Auto) [place] % (Auto) [place] # (Auto) Seg Neutrophils % Seg Neutrophils # APTT 22.4 L D-Dimer Heparin Anti-Xa Level ABG pH POC ABG pCO2 POC ABG pO2 ABG pO2 ABG HCO3 ABG Base Excess ABG Hemoglobin ABG Oxyhemoglobin ABG Sodium ABG Potassium ABG Glucose Oxyhemoglobin Carboxyhemoglobin Potassium Chloride Carbon Dioxide BUN Creatinine Glucose POC Glucose 153 H Hemoglobin A1c Lactic Acid Total Bilirubin AST ALT Lactate Dehydrogenase C-Reactive Protein NT-Pro-B Natriuret Pep Total Protein Albumin Triglycerides Arterial Blood Glucose Arterial Blood Ionized Calcium Random Vancomycin Coronavirus (PCR) SARS-CoV-2 IgG Ab 03/19/20 03/19/20 03/19/20 14:00 14:40 21:29 WBC RBC Hgb Hct MCH MCHC RDW Lymph % (Auto) [place] % (Auto) [place] # (Auto) Seg Neutrophils % Seg Neutrophils # APTT D-Dimer Heparin Anti-Xa Level ABG pH 7.168 L POC ABG pCO2 79.0 H POC ABG pO2 56.5 L 61.2 L ABG pO2 ABG HCO3 ABG Base Excess ABG Hemoglobin 10.8 L 10.0 L ABG Oxyhemoglobin 82.6 L 89.5 L ABG Sodium 135.6 L ABG Potassium ABG Glucose 214 H 99 H Oxyhemoglobin Carboxyhemoglobin 2.0 H Potassium Chloride Carbon Dioxide BUN 42 H Creatinine 2.5 H D Glucose 235 H POC Glucose Hemoglobin A1c Lactic Acid Total Bilirubin AST ALT Lactate Dehydrogenase C-Reactive Protein NT-Pro-B Natriuret Pep Total Protein Albumin Triglycerides Arterial Blood Glucose 214 H 99 H Arterial Blood Ionized Calcium Random Vancomycin Coronavirus (PCR) SARS-CoV-2 IgG Ab 03/19/20 03/20/20 03/20/20 21:56 05:00 05:00 WBC RBC Hgb Hct MCH MCHC RDW Lymph % (Auto) [place] % (Auto) [place] # (Auto) Seg Neutrophils % Seg Neutrophils # APTT D-Dimer Heparin Anti-Xa Level 0.26 L ABG pH POC ABG pCO2 POC ABG pO2 ABG pO2 ABG HCO3 ABG Base Excess ABG Hemoglobin ABG Oxyhemoglobin ABG Sodium ABG Potassium ABG Glucose Oxyhemoglobin Carboxyhemoglobin Potassium Chloride Carbon Dioxide BUN 48 H Creatinine 2.2 H Glucose 138 H POC Glucose Hemoglobin A1c Lactic Acid Total Bilirubin AST ALT Lactate Dehydrogenase C-Reactive Protein NT-Pro-B Natriuret Pep Total Protein Albumin Triglycerides Arterial Blood Glucose Arterial Blood Ionized Calcium Random Vancomycin 54.2 H Coronavirus (PCR) SARS-CoV-2 IgG Ab 03/20/20 03/20/20 03/20/20 05:16 07:15 11:52 WBC RBC Hgb Hct MCH MCHC RDW Lymph % (Auto) [place] % (Auto) [place] # (Auto) Seg Neutrophils % Seg Neutrophils # APTT D-Dimer Heparin Anti-Xa Level 0.10 L ABG pH POC ABG pCO2 POC ABG pO2 ABG pO2 ABG HCO3 ABG Base Excess ABG Hemoglobin ABG Oxyhemoglobin ABG Sodium ABG Potassium ABG Glucose Oxyhemoglobin Carboxyhemoglobin Potassium Chloride Carbon Dioxide BUN Creatinine Glucose POC Glucose 128 H 145 H Hemoglobin A1c Lactic Acid Total Bilirubin AST ALT Lactate Dehydrogenase C-Reactive Protein NT-Pro-B Natriuret Pep Total Protein Albumin Triglycerides Arterial Blood Glucose Arterial Blood Ionized Calcium Random Vancomycin Coronavirus (PCR) SARS-CoV-2 IgG Ab Chest x-ray: image reviewed (right mainstem intubation; left lung near complete whiteout) Allied health notes reviewed: nursing
[2020-03-20 14:19] LABS: Creatinine,Urine 137.9 mg/dL (0.1-20.0)
[2020-03-20] MEDS: SODIUM CHLORIDE 0.9% 1000 ML 1,000 ML IV SCH (15:11)
--- NOTE | 2020-03-20 16:25 | Progress Note ---
Assessment and Plan -Acute hypoxemic respiratory failure due to COVID-19 and staph PNA patient now intubated since 03/13 following a cardiac arrest self extubated today then reintubated Critical care following, continue scheduled breathing treatment, IV steroid Unable to wean at present. Wean off from vent as tolerated --Status post cardiac arrest on 03/13 and today Patient currently intubated, 2D echo showed preserved EF with right ventricular pressure 68 --B/l PE, continue on heparin drip --Novel Coronavirus infection Coronavirus protocol: Infectious disease service consulted, contact precautions, isolation precaution, steroid therapy, follow inflammatory markers Diagnosed over 2 weeks ago, as such not a candidate for remdesivir. Given that her ferritin is normal, less likely to be in cytokine storm. -Patient also positive for COVID-19 antibody -no scope for convalescent plasma therapy --ID following. -- Pneumonia with MRSA and COVID Pneumonia protocol: Supplemental oxygen, IV antibiotic therapy, pulse oximetry, blood culture. -s/p cefepime 2 g every 8 hours given elevated white count, lactic acid and procalcitonin -Continue vancomycin as sputum culture growing MRSA for 7 days -Vancomycin to complete 10 days. --Sepsis, due to COVID-19 and MRSA pneumonia Likely present on admission, continue antibiotics, follow inflammatory markers -- Hypertension Blood pressure remains suboptimally controlled. Hydralazine. Monitor blood pressure every shift, continue medical management -- Diabetes type 2 --Remains suboptimally controlled. Increase insulin to 30 units. Tube feeding diet, sliding scale insulin therapy, Accu-Chek, hypoglycemia protocol -- Obesity hypoventilation syndrome BMI 78.7, monitor weight pulse oximetry, nebulizer therapy, supplemental oxygen, patient now intubated outpatient pulmonary follow-up for sleep study when clinically stable, need recommendation on balanced diet, increase physical activity at discharge -- Pulmonary hypertension Supportive care, outpatient pulmonology follow-up for sleep study. And also need evaluation for vasodilator therapy. -- DVT prophylaxis SCD to bilateral lower extremities while in bed, prophylactic anticoagulation. The high probability of a clinically significant, sudden or life threatening deterioration of the [pulmonary, cardiac, renal, neuro] system(s) required my full and direct attention, intervention and personal management. The aggregate critical care time was [33] minutes. This time is in addition to time spent performing reported procedures but includes the following: [x] Data Review and interpretation [x] Patient assessment and monitoring of vital signs [x] Documentation [x] Medication orders and management Subjective Date of service: 03/20/20 Principal diagnosis: Cardiac arrest; Ac. hypoxemic resp failure; COVID 19 infxn; Pulm HTN; OHS Interval history: 29-year-old female past medical history morbid obesity, obesity hypoventilation syndrome, diabetes admitted with shortness of breath. Patient is positive for COVID-19 diagnosed 2 weeks ago, patient currently intubated following a cardiac arrest on 03/13/20. ID following and critical care following. Sputum culture is positive for staph aureus. 03/16: cont iv abx, follow pending sputum Cx. wean off vent as tolerated 03/17: Sputum culture positive for MRSA, stop cefepime continue on vancomycin for 7 days per ID recommendation. Wean off vent as tolerated, continue tube feeding 03/19: Patient self extubated herself and then developed cardiac arrest. ACLS initiated and ROSC obtained Discussed with RN at the bedside. CTA chest showed b/l PE, heparin drip initiated. 03/20 at present patient remains intubated was reintubated. CT scan chest showed small PE remains on heparin drip. Objective - Constitutional Vitals: Vital Signs - 12hr 03/20/20 03/20/20 03/20/20 04:30 04:45 05:00 Temperature Pulse Rate 76 77 81 Pulse Rate [ From Monitor] Respiratory 25 H 25 H 25 H Rate Blood Pressure 104/46 112/50 93/31 O2 Sat by Pulse 98 97 96 Oximetry 03/20/20 03/20/20 03/20/20 05:06 05:15 05:30 Temperature Pulse Rate 86 84 84 Pulse Rate [ From Monitor] Respiratory 25 H 25 H Rate Blood Pressure 93/31 93/31 88/32 O2 Sat by Pulse 98 99 98 Oximetry 03/20/20 03/20/20 03/20/20 05:36 05:45 06:00 Temperature 98.7 F Pulse Rate 87 85 Pulse Rate [ From Monitor] Respiratory 25 H 24 Rate Blood Pressure 80/38 78/39 O2 Sat by Pulse 100 99 Oximetry 03/20/20 03/20/20 03/20/20 06:15 06:30 06:45 Temperature Pulse Rate 80 85 86 Pulse Rate [ From Monitor] Respiratory 25 H 25 H 25 H Rate Blood Pressure 94/40 96/43 87/39 O2 Sat by Pulse 100 94 96 Oximetry 03/20/20 03/20/20 03/20/20 07:00 07:15 07:30 Temperature Pulse Rate 87 90 88 Pulse Rate [ From Monitor] Respiratory 25 H 25 H 25 H Rate Blood Pressure 88/40 88/40 86/33 O2 Sat by Pulse 97 98 97 Oximetry 03/20/20 03/20/20 03/20/20 07:45 08:00 08:15 Temperature 98.1 F Pulse Rate 85 86 82 Pulse Rate [ 86 From Monitor] Respiratory 25 H 25 H 25 H Rate Blood Pressure 98/32 94/42 90/42 O2 Sat by Pulse 93 97 100 Oximetry 03/20/20 03/20/20 03/20/20 08:30 08:45 09:00 Temperature Pulse Rate 81 81 75 Pulse Rate [ From Monitor] Respiratory 25 H 25 H 25 H Rate Blood Pressure 93/45 90/39 94/30 O2 Sat by Pulse 100 94 85 Oximetry 03/20/20 03/20/20 03/20/20 09:15 09:30 09:45 Temperature Pulse Rate 82 82 80 Pulse Rate [ From Monitor] Respiratory 18 25 H 25 H Rate Blood Pressure 88/40 78/31 93/27 O2 Sat by Pulse 60 L 77 L Oximetry 03/20/20 03/20/20 03/20/20 10:00 10:15 10:21 Temperature Pulse Rate 95 H 94 H Pulse Rate [ From Monitor] Respiratory 24 25 H Rate Blood Pressure 90/24 85/34 O2 Sat by Pulse 79 L 92 92 Oximetry 03/20/20 03/20/20 03/20/20 10:30 10:45 11:00 Temperature Pulse Rate 102 H 106 H 107 H Pulse Rate [ From Monitor] Respiratory 17 13 18 Rate Blood Pressure 83/30 94/43 85/29 O2 Sat by Pulse 98 95 91 Oximetry 03/20/20 03/20/20 03/20/20 11:15 11:30 11:45 Temperature Pulse Rate 99 H 92 H 92 H Pulse Rate [ From Monitor] Respiratory 25 H 25 H 25 H Rate Blood Pressure 91/31 82/32 81/32 O2 Sat by Pulse 91 89 90 Oximetry 03/20/20 03/20/20 03/20/20 12:00 12:06 12:16 Temperature 99.1 F Pulse Rate 102 H 108 H 107 H Pulse Rate [ 109 H From Monitor] Respiratory 25 H 24 Rate Blood Pressure 80/29 80/29 139/53 O2 Sat by Pulse 98 89 96 Oximetry 03/20/20 03/20/20 03/20/20 12:30 12:45 13:00 Temperature Pulse Rate 110 H 105 H 104 H Pulse Rate [ From Monitor] Respiratory 25 H 25 H 25 H Rate Blood Pressure 158/66 134/55 127/53 O2 Sat by Pulse 99 99 99 Oximetry 03/20/20 03/20/20 03/20/20 13:15 13:30 13:45 Temperature Pulse Rate 105 H 107 H 109 H Pulse Rate [ From Monitor] Respiratory 25 H 25 H 25 H Rate Blood Pressure 129/53 121/56 123/62 O2 Sat by Pulse 98 97 97 Oximetry 03/20/20 03/20/20 03/20/20 14:00 14:15 14:30 Temperature Pulse Rate 111 H 108 H 109 H Pulse Rate [ From Monitor] Respiratory 25 H 25 H 25 H Rate Blood Pressure 137/55 109/51 104/53 O2 Sat by Pulse 97 97 98 Oximetry 03/20/20 03/20/20 14:45 15:00 Temperature Pulse Rate 111 H 107 H Pulse Rate [ From Monitor] Respiratory 25 H 25 H Rate Blood Pressure 115/55 123/48 O2 Sat by Pulse 98 98 Oximetry General appearance: Present: no acute distress, other (Intubated sedated.) - Respiratory Respiratory: bilateral: diminished - Cardiovascular Rhythm: regular Extremities: no ischemia, pulses intact Extremity abnormal: edema - Gastrointestinal General gastrointestinal: Present: soft, non-tender, non-distended, normal bowel sounds - Labs CBC & Chem 7: 03/19/20 14:00 03/21/20 12:20 Labs: Abnormal lab results 03/19/20 03/19/20 03/19/20 Range/Units 14:40 21:29 21:56 Heparin Anti-Xa Level 0.26 L (0.3-0.7) U.I./ml ABG pH 7.168 L (7.320-7.450) POC ABG pCO2 79.0 H (32.0-48.0) mmHg POC ABG pO2 56.5 L 61.2 L (83-108) mmHg ABG Hemoglobin 10.8 L 10.0 L (12.0-17.5) ABG Oxyhemoglobin 82.6 L 89.5 L (94-98) ABG Sodium 135.6 L (136.0-145.0) mmol/L ABG Glucose 214 H 99 H (65-95) mg/dL Carboxyhemoglobin 2.0 H (0.5-1.5) BUN (7-17) mg/dL Creatinine (0.6-1.2) mg/dL Glucose (65-100) mg/dL POC Glucose (70-105) mg/dL Arterial Blood Glucose 214 H 99 H (65-95) mg/dL Urine Creatinine (0.1-20.0) mg/dL Random Vancomycin (0-40.0) ug/mL 03/20/20 03/20/20 03/20/20 Range/Units 05:00 05:00 05:16 Heparin Anti-Xa Level (0.3-0.7) U.I./ml ABG pH (7.320-7.450) POC ABG pCO2 (32.0-48.0) mmHg POC ABG pO2 (83-108) mmHg ABG Hemoglobin (12.0-17.5) ABG Oxyhemoglobin (94-98) ABG Sodium (136.0-145.0) mmol/L ABG Glucose (65-95) mg/dL Carboxyhemoglobin (0.5-1.5) BUN 48 H (7-17) mg/dL Creatinine 2.2 H (0.6-1.2) mg/dL Glucose 138 H (65-100) mg/dL POC Glucose 128 H (70-105) mg/dL Arterial Blood Glucose (65-95) mg/dL Urine Creatinine (0.1-20.0) mg/dL Random Vancomycin 54.2 H (0-40.0) ug/mL 03/20/20 03/20/20 03/20/20 Range/Units 07:15 11:52 13:44 Heparin Anti-Xa Level 0.10 L (0.3-0.7) U.I./ml ABG pH (7.320-7.450) POC ABG pCO2 (32.0-48.0) mmHg POC ABG pO2 (83-108) mmHg ABG Hemoglobin (12.0-17.5) ABG Oxyhemoglobin (94-98) ABG Sodium (136.0-145.0) mmol/L ABG Glucose (65-95) mg/dL Carboxyhemoglobin (0.5-1.5) BUN (7-17) mg/dL Creatinine (0.6-1.2) mg/dL Glucose (65-100) mg/dL POC Glucose 145 H (70-105) mg/dL Arterial Blood Glucose (65-95) mg/dL Urine Creatinine 137.9 H (0.1-20.0) mg/dL Random Vancomycin (0-40.0) ug/mL 03/20/20 Range/Units 14:55 Heparin Anti-Xa Level 0.79 H (0.3-0.7) U.I./ml ABG pH (7.320-7.450) POC ABG pCO2 (32.0-48.0) mmHg POC ABG pO2 (83-108) mmHg ABG Hemoglobin (12.0-17.5) ABG Oxyhemoglobin (94-98) ABG Sodium (136.0-145.0) mmol/L ABG Glucose (65-95) mg/dL Carboxyhemoglobin (0.5-1.5) BUN (7-17) mg/dL Creatinine (0.6-1.2) mg/dL Glucose (65-100) mg/dL POC Glucose (70-105) mg/dL Arterial Blood Glucose (65-95) mg/dL Urine Creatinine (0.1-20.0) mg/dL Random Vancomycin (0-40.0) ug/mL - Imaging and cardiology EKG: image reviewed Chest x-ray: report reviewed, image reviewed (Echocardiogram) Venous US: report reviewed HEART Score - HEART Score Troponin: Troponin T 0.017 ng/mL (0.00-0.029) 03/14/20 09:17
[2020-03-20] MEDS: NORepinephrine/NS 4 MG-250 ML 4 MG/250 ML BAG IV SCH (17:28)
[2020-03-20] MEDS: INSULIN GLARGINE 100 UNITS/ML SUB-Q SCH (21:48)
[2020-03-21] MEDS: INSULIN LISPRO 100 UNIT/ML VIAL 3 mL SUB-Q SCH ×5 (00:08→23:29)
[2020-03-21] MEDS: fentaNYL DRIP Premix 2,000 MCG/100 ML BAG IV SCH ×8 (00:08→21:46)
[2020-03-21] MEDS: SODIUM CHLORIDE 0.9% 1000 ML 1,000 ML IV SCH (04:18)
[2020-03-21] MEDS: FUROSEMIDE 40 MG/4 ML INJ IV SCH ×2 (06:08→17:00)
[2020-03-21] MEDS: HEPARIN/ 0.45% NACL DRIP 25,000 UNIT/500 ML BAG IV SCH ×2 (07:09→21:26)
[2020-03-21] MEDS: VANCOMYCIN 2,000 MG in SODIUM CHLORIDE 0.9% 500 ML 500 ML IV SCH (08:32)
[2020-03-21] MEDS: GLYCOPYRROLATE 2 MG TAB PO SCH ×3 (08:48→21:24)
[2020-03-21] MEDS: QUEtiapine 100 MG TAB PO SCH ×2 (09:48→21:25)
[2020-03-21] MEDS: LANSOPRAZOLE 30 MG SOLUTAB FEEDTUBE SCH (09:49)
[2020-03-21] MEDS: SENNOSIDES/DOCUSATE SODIUM 8.6/50 MG TAB PO SCH ×2 (09:49→21:24)
[2020-03-21] MEDS: POLYETHYLENE GLYCOL 3350 17 GM POWDER PO SCH (09:50)
[2020-03-21] MEDS: NORepinephrine/NS 4 MG-250 ML 4 MG/250 ML BAG IV SCH ×2 (10:13→23:58)
--- NOTE | 2020-03-21 12:31 | Progress Note ---
Assessment and Plan Cardiopulmoanry arrest with ROSC Acute hypoxemic respiratory failure on MVS COVID 19 infection MICHELLE Extreme obesity Pulmonary HTN Obesity hypoventilation syndrome - FENA calculates as pre-renal, will continue IV hydration but also consult nephrology - repeat CXR in am - FiO2 reduced to 70% - keep peep at 14 - continue full dose IV heparin for anticoagulation - continue care as below otherwise; - continue difficult airway sign - continue Seroquel 300 mg BID for sedation / anxiolysis - continue bowel regimen - adjust Geodon dose based on response - prn gentle diuresis; monitor output and follow renal function/electrolytes - contact and airborne isolation per facility protocols for COVID - Daily SAT's and SBT assessment as tolerated - continue accuchecks with glycemic control per SSI (While critically ill target blood glucose of 140-180 mg/dL; avoid hypoglycemia) - sedation prn for target RASS -1 to -2 - continue to wean supplemental oxygen for target O2 sat's > 92% acutely - VAP bundle addressed - continue lung protective strategies - continue bronchodilators with pulmonary hygiene per RT - wean per pulmonary driven protocols otherwise - Varela catheter in this critically ill patient - Conservative fluid management - avoid nephrotoxins, renally dose all medications - Empiric antibiotics to include HAP coverage (on Vanc and Cefepime); adjust per ID recommendations and clinical response - prn analgesia per CPOT score - Maintenance of sleep-wake cycle, avoid delirium - continue enteral nutritional support at goal rate as tolerated - G.I. & VTE prophylaxis withy Famotidine and Lovenox - PT/OT/ROM exercises - continue mobility protocols for pressure ulcer prophylaxis - Monitor hemodynamics closely - continue other care per attending / other consultants - discharge planning ongoing concurrently .... Re-evaluate in am & prn CONDITION: CRITICAL PROGNOSIS: GUARDED CODE STATUS: FULL CODE The high probability of a clinically significant, sudden or life-threatening deterioration of the [respiratory, cardiovascular and neurologic] system (s) required my full and direct attention, intervention and personal management. The aggregate critical care time was [32] minutes without overlap. Time includes spent on; [x] Data Review and interpretation [x] Patient assessment and monitoring of vital signs [x] Documentation [x] Medication orders and management Subjective Date of service: 03/21/20 Principal diagnosis: Cardiac arrest; Ac. hypoxemic resp failure; COVID 19 infxn; Pulm HTN; OHS Interval history: Patient is seen today for: Cardiopulmoanry arrest with ROSC; Acute hypoxemic respiratory failure on MVS; COVID; Extreme obesity; Pulmonary HTN; Obesity hypoventilation syndrome Seen and examined at bedside; 24hour events reviewed; nursing and respiratory ca re staff consulted; no adverse overnight events reported to me; resting peacefully in bed; remains on MVS; hypoxemia is improving and FiO2 reduced to 80%; sedated; no emesis or overt aspiration; remains on Levophed at 4 my's/ min; azotemia is worse Objective Vital Signs - 12hr 03/21/20 03/21/20 03/21/20 00:45 00:48 01:00 Temperature Pulse Rate 92 H 88 91 H Pulse Rate [ From Monitor] Respiratory 25 H 25 H Rate Blood Pressure 112/42 122/42 118/47 O2 Sat by Pulse 99 99 100 Oximetry 03/21/20 03/21/20 03/21/20 01:15 01:30 01:45 Temperature Pulse Rate 89 88 88 Pulse Rate [ From Monitor] Respiratory 25 H 25 H 25 H Rate Blood Pressure 121/48 109/49 115/45 O2 Sat by Pulse 100 100 100 Oximetry 03/21/20 03/21/20 03/21/20 02:00 02:15 02:30 Temperature Pulse Rate 88 87 80 Pulse Rate [ From Monitor] Respiratory 25 H 25 H 25 H Rate Blood Pressure 124/45 124/43 119/35 O2 Sat by Pulse 100 100 99 Oximetry 03/21/20 03/21/20 03/21/20 02:45 03:00 03:15 Temperature Pulse Rate 89 97 H 92 H Pulse Rate [ From Monitor] Respiratory 25 H 25 H 25 H Rate Blood Pressure 121/34 128/52 115/34 O2 Sat by Pulse 99 97 99 Oximetry 03/21/20 03/21/20 03/21/20 03:22 03:30 03:45 Temperature 100.8 F H Pulse Rate 91 H 92 H Pulse Rate [ From Monitor] Respiratory 25 H 25 H Rate Blood Pressure 119/38 112/37 O2 Sat by Pulse 100 100 Oximetry 03/21/20 03/21/20 03/21/20 03:58 04:00 04:15 Temperature Pulse Rate 92 H 91 H 91 H Pulse Rate [ 92 H From Monitor] Respiratory 25 H 25 H Rate Blood Pressure 112/37 106/42 108/37 O2 Sat by Pulse 100 99 100 Oximetry 03/21/20 03/21/20 03/21/20 04:30 04:45 05:00 Temperature Pulse Rate 90 88 88 Pulse Rate [ From Monitor] Respiratory 25 H 25 H 25 H Rate Blood Pressure 101/37 110/47 119/43 O2 Sat by Pulse 100 100 100 Oximetry 03/21/20 03/21/20 03/21/20 05:15 05:30 05:45 Temperature Pulse Rate 86 86 86 Pulse Rate [ From Monitor] Respiratory 25 H 25 H 25 H Rate Blood Pressure 116/41 102/43 109/36 O2 Sat by Pulse 100 100 99 Oximetry 03/21/20 03/21/20 03/21/20 06:00 06:15 06:30 Temperature Pulse Rate 87 92 H 89 Pulse Rate [ From Monitor] Respiratory 25 H 25 H 25 H Rate Blood Pressure 99/33 107/60 106/34 O2 Sat by Pulse 99 99 99 Oximetry 03/21/20 03/21/20 03/21/20 06:45 07:00 07:15 Temperature Pulse Rate 92 H 90 96 H Pulse Rate [ From Monitor] Respiratory 14 22 25 H Rate Blood Pressure 112/30 93/33 142/78 O2 Sat by Pulse 97 100 98 Oximetry 03/21/20 03/21/20 03/21/20 07:30 07:45 08:00 Temperature Pulse Rate 88 89 88 Pulse Rate [ 86 From Monitor] Respiratory 25 H 25 H 25 H Rate Blood Pressure 113/34 109/40 101/39 O2 Sat by Pulse 99 99 99 Oximetry 03/21/20 03/21/20 03/21/20 08:15 08:26 08:30 Temperature Pulse Rate 87 86 86 Pulse Rate [ From Monitor] Respiratory 25 H 25 H Rate Blood Pressure 109/47 109/47 106/47 O2 Sat by Pulse 100 100 100 Oximetry 03/21/20 03/21/20 03/21/20 08:43 08:45 09:00 Temperature Pulse Rate 87 87 87 Pulse Rate [ From Monitor] Respiratory 25 H 25 H Rate Blood Pressure 107/39 107/39 99/40 O2 Sat by Pulse 99 99 99 Oximetry 03/21/20 03/21/20 03/21/20 09:15 09:30 09:45 Temperature Pulse Rate 86 84 84 Pulse Rate [ From Monitor] Respiratory 25 H 25 H 25 H Rate Blood Pressure 97/43 104/38 105/39 O2 Sat by Pulse 99 100 99 Oximetry 03/21/20 03/21/20 03/21/20 10:00 10:15 10:30 Temperature Pulse Rate 93 H 89 88 Pulse Rate [ From Monitor] Respiratory 25 H 25 H 25 H Rate Blood Pressure 105/39 131/51 117/62 O2 Sat by Pulse 99 99 100 Oximetry 03/21/20 03/21/20 03/21/20 10:46 11:00 12:07 Temperature Pulse Rate 88 89 92 H Pulse Rate [ From Monitor] Respiratory 25 H 25 H Rate Blood Pressure 130/55 121/52 126/57 O2 Sat by Pulse 100 100 98 Oximetry Constitutional: appears uncomfortable, other (young obese female with moderately increased respiratory effort at rest on MVS) Eyes: non-icteric ENT: oropharynx moist, oropharyngeal exudate pre (moderate), other (orally intubated, ETT 24 cm ) Neck: supple, no lymphadenopathy, other (large circumference) Effort: mildly labored Ascultation: Bilateral: rhonchi Percussion: Bilateral: not dull Cardiovascular: regular rate and rhythm, other (S1,S2) Gastrointestinal: normoactive bowel sounds, soft, non-distended (protuberant), other (obese) Integumentary: rash Extremities: no cyanosis, no edema, pulses normal, cool Neurologic: non-focal exam (moves all extremities, holding onto the rails), pupils equal and round, motor strength normal and, unable to assess Psychiatric: other (unable to assess) CBC and BMP: 03/19/20 14:00 03/21/20 12:20 ABG, PT/INR, D-dimer: ABG ABG pH 7.345 (7.320-7.450) 03/21/20 08:37 POC ABG pCO2 37.1 mmHg (32.0-48.0) 03/21/20 08:37 ABG pCO2 44.2 mm Hg 03/14/20 06:15 POC ABG pO2 210.3 mmHg (83-108) H 03/21/20 08:37 ABG pO2 92.8 mm Hg (80.0-90.0) H 03/14/20 06:15 POC ABG HCO3 19.8 03/21/20 08:37 ABG O2 Saturation 97.6 % (95.0-99.0) 03/14/20 06:15 PT/INR, D-dimer PT 13.9 Sec. (12.2-14.9) 03/19/20 14:00 INR 1.08 (0.87-1.13) 03/19/20 14:00 D-Dimer 1042.81 ng/mlDDU (0-234) H 03/09/20 08:27 Abnormal lab findings: Abnormal Labs 03/09/20 03/09/20 03/09/20 08:27 08:27 08:27 WBC 15.8 H RBC 5.43 H Hgb Hct MCH 24 L MCHC RDW 19.3 H Lymph % (Auto) [place] % (Auto) 8.2 H [place] # (Auto) 1.3 H Seg Neutrophils % 70.4 H Seg Neutrophils # 11.1 H APTT D-Dimer Heparin Anti-Xa Level ABG pH POC ABG pCO2 POC ABG pO2 ABG pO2 ABG HCO3 ABG Base Excess ABG Hemoglobin ABG Oxyhemoglobin ABG Sodium ABG Potassium ABG Glucose Oxyhemoglobin Carboxyhemoglobin Potassium Chloride 97.1 L Carbon Dioxide BUN 29 H Creatinine Glucose 178 H POC Glucose Hemoglobin A1c Lactic Acid 3.70 H* Total Bilirubin AST ALT Lactate Dehydrogenase 369 H C-Reactive Protein 3.00 H NT-Pro-B Natriuret Pep Total Protein Albumin Triglycerides Arterial Blood Glucose Arterial Blood Ionized Calcium Urine Creatinine Random Vancomycin Coronavirus (PCR) SARS-CoV-2 IgG Ab 03/09/20 03/09/20 03/09/20 08:27 08:27 08:27 WBC RBC Hgb Hct MCH MCHC RDW Lymph % (Auto) [place] % (Auto) [place] # (Auto) Seg Neutrophils % Seg Neutrophils # APTT D-Dimer 1042.81 H Heparin Anti-Xa Level ABG pH POC ABG pCO2 POC ABG pO2 ABG pO2 ABG HCO3 ABG Base Excess ABG Hemoglobin ABG Oxyhemoglobin ABG Sodium ABG Potassium ABG Glucose Oxyhemoglobin Carboxyhemoglobin Potassium Chloride Carbon Dioxide BUN Creatinine Glucose POC Glucose Hemoglobin A1c 8.0 H Lactic Acid Total Bilirubin AST ALT Lactate Dehydrogenase C-Reactive Protein NT-Pro-B Natriuret Pep 2914 H Total Protein Albumin Triglycerides Arterial Blood Glucose Arterial Blood Ionized Calcium Urine Creatinine Random Vancomycin Coronavirus (PCR) SARS-CoV-2 IgG Ab 03/09/20 03/09/20 03/10/20 08:43 23:04 05:23 WBC RBC Hgb Hct MCH MCHC RDW Lymph % (Auto) [place] % (Auto) [place] # (Auto) Seg Neutrophils % Seg Neutrophils # APTT D-Dimer Heparin Anti-Xa Level ABG pH POC ABG pCO2 POC ABG pO2 ABG pO2 ABG HCO3 ABG Base Excess ABG Hemoglobin ABG Oxyhemoglobin ABG Sodium ABG Potassium ABG Glucose Oxyhemoglobin Carboxyhemoglobin Potassium Chloride Carbon Dioxide BUN Creatinine Glucose POC Glucose 361 H Hemoglobin A1c Lactic Acid 6.80 H* Total Bilirubin AST ALT Lactate Dehydrogenase C-Reactive Protein NT-Pro-B Natriuret Pep Total Protein Albumin Triglycerides Arterial Blood Glucose Arterial Blood Ionized Calcium Urine Creatinine Random Vancomycin Coronavirus (PCR) Positive A SARS-CoV-2 IgG Ab 03/10/20 03/10/20 03/10/20 08:19 10:49 17:11 WBC RBC Hgb Hct MCH MCHC RDW Lymph % (Auto) [place] % (Auto) [place] # (Auto) Seg Neutrophils % Seg Neutrophils # APTT D-Dimer Heparin Anti-Xa Level ABG pH POC ABG pCO2 POC ABG pO2 ABG pO2 ABG HCO3 ABG Base Excess ABG Hemoglobin ABG Oxyhemoglobin ABG Sodium ABG Potassium ABG Glucose Oxyhemoglobin Carboxyhemoglobin Potassium Chloride Carbon Dioxide BUN Creatinine Glucose POC Glucose 371 H 423 H 373 H Hemoglobin A1c Lactic Acid Total Bilirubin AST ALT Lactate Dehydrogenase C-Reactive Protein NT-Pro-B Natriuret Pep Total Protein Albumin Triglycerides Arterial Blood Glucose Arterial Blood Ionized Calcium Urine Creatinine Random Vancomycin Coronavirus (PCR) SARS-CoV-2 IgG Ab 03/11/20 03/11/20 03/11/20 00:29 07:52 13:12 WBC RBC Hgb Hct MCH MCHC RDW Lymph % (Auto) [place] % (Auto) [place] # (Auto) Seg Neutrophils % Seg Neutrophils # APTT D-Dimer Heparin Anti-Xa Level ABG pH POC ABG pCO2 POC ABG pO2 ABG pO2 ABG HCO3 ABG Base Excess ABG Hemoglobin ABG Oxyhemoglobin ABG Sodium ABG Potassium ABG Glucose Oxyhemoglobin Carboxyhemoglobin Potassium Chloride Carbon Dioxide BUN Creatinine Glucose POC Glucose 242 H 233 H 352 H Hemoglobin A1c Lactic Acid Total Bilirubin AST ALT Lactate Dehydrogenase C-Reactive Protein NT-Pro-B Natriuret Pep Total Protein Albumin Triglycerides Arterial Blood Glucose Arterial Blood Ionized Calcium Urine Creatinine Random Vancomycin Coronavirus (PCR) SARS-CoV-2 IgG Ab 03/11/20 03/11/20 03/12/20 15:24 22:54 08:22 WBC RBC Hgb Hct MCH MCHC RDW Lymph % (Auto) [place] % (Auto) [place] # (Auto) Seg Neutrophils % Seg Neutrophils # APTT D-Dimer Heparin Anti-Xa Level ABG pH POC ABG pCO2 POC ABG pO2 ABG pO2 ABG HCO3 ABG Base Excess ABG Hemoglobin ABG Oxyhemoglobin ABG Sodium ABG Potassium ABG Glucose Oxyhemoglobin Carboxyhemoglobin Potassium Chloride Carbon Dioxide BUN Creatinine Glucose POC Glucose 386 H 418 H 431 H Hemoglobin A1c Lactic Acid Total Bilirubin AST ALT Lactate Dehydrogenase C-Reactive Protein NT-Pro-B Natriuret Pep Total Protein Albumin Triglycerides Arterial Blood Glucose Arterial Blood Ionized Calcium Urine Creatinine Random Vancomycin Coronavirus (PCR) SARS-CoV-2 IgG Ab 03/12/20 03/12/20 03/12/20 11:34 16:53 22:20 WBC RBC Hgb Hct MCH MCHC RDW Lymph % (Auto) [place] % (Auto) [place] # (Auto) Seg Neutrophils % Seg Neutrophils # APTT D-Dimer Heparin Anti-Xa Level ABG pH POC ABG pCO2 POC ABG pO2 ABG pO2 ABG HCO3 ABG Base Excess ABG Hemoglobin ABG Oxyhemoglobin ABG Sodium ABG Potassium ABG Glucose Oxyhemoglobin Carboxyhemoglobin Potassium Chloride Carbon Dioxide BUN Creatinine Glucose POC Glucose 310 H 358 H 295 H Hemoglobin A1c Lactic Acid Total Bilirubin AST ALT Lactate Dehydrogenase C-Reactive Protein NT-Pro-B Natriuret Pep Total Protein Albumin Triglycerides Arterial Blood Glucose Arterial Blood Ionized Calcium Urine Creatinine Random Vancomycin Coronavirus (PCR) SARS-CoV-2 IgG Ab 03/13/20 03/13/20 03/13/20 05:48 09:15 12:09 WBC 18.3 H RBC Hgb Hct MCH 24 L MCHC 29 L RDW 18.9 H Lymph % (Auto) 7.8 L [place] % (Auto) 9.7 H [place] # (Auto) 1.8 H Seg Neutrophils % 82.0 H Seg Neutrophils # 15.0 H APTT D-Dimer Heparin Anti-Xa Level ABG pH 7.327 L POC ABG pCO2 POC ABG pO2 ABG pO2 73.0 L ABG HCO3 39.3 H ABG Base Excess 10.8 H ABG Hemoglobin 11.2 L ABG Oxyhemoglobin ABG Sodium ABG Potassium ABG Glucose Oxyhemoglobin 93.4 L Carboxyhemoglobin Potassium Chloride Carbon Dioxide BUN Creatinine Glucose POC Glucose 216 H Hemoglobin A1c Lactic Acid Total Bilirubin AST ALT Lactate Dehydrogenase C-Reactive Protein NT-Pro-B Natriuret Pep Total Protein Albumin Triglycerides Arterial Blood Glucose Arterial Blood Ionized Calcium Urine Creatinine Random Vancomycin Coronavirus (PCR) SARS-CoV-2 IgG Ab 03/13/20 03/13/20 03/13/20 12:09 12:11 17:23 WBC RBC Hgb Hct MCH MCHC RDW Lymph % (Auto) [place] % (Auto) [place] # (Auto) Seg Neutrophils % Seg Neutrophils # APTT D-Dimer Heparin Anti-Xa Level ABG pH POC ABG pCO2 POC ABG pO2 ABG pO2 ABG HCO3 ABG Base Excess ABG Hemoglobin ABG Oxyhemoglobin ABG Sodium ABG Potassium ABG Glucose Oxyhemoglobin Carboxyhemoglobin Potassium 5.1 H Chloride Carbon Dioxide 37 H D BUN Creatinine Glucose 154 H POC Glucose 148 H 217 H Hemoglobin A1c Lactic Acid Total Bilirubin AST 47 H ALT 128 H Lactate Dehydrogenase C-Reactive Protein NT-Pro-B Natriuret Pep Total Protein 5.9 L Albumin 3.0 L Triglycerides Arterial Blood Glucose Arterial Blood Ionized Calcium Urine Creatinine Random Vancomycin Coronavirus (PCR) SARS-CoV-2 IgG Ab 03/14/20 03/14/20 03/14/20 06:15 06:55 09:17 WBC 14.9 H RBC Hgb Hct MCH 25 L MCHC RDW 19.1 H Lymph % (Auto) 9.5 L [place] % (Auto) [place] # (Auto) 0.9 H Seg Neutrophils % 83.8 H Seg Neutrophils # 12.5 H APTT D-Dimer Heparin Anti-Xa Level ABG pH 7.544 H POC ABG pCO2 POC ABG pO2 ABG pO2 92.8 H ABG HCO3 37.3 H ABG Base Excess 13.5 H ABG Hemoglobin 10.5 L ABG Oxyhemoglobin ABG Sodium ABG Potassium ABG Glucose Oxyhemoglobin Carboxyhemoglobin Potassium Chloride Carbon Dioxide BUN Creatinine Glucose POC Glucose 182 H Hemoglobin A1c Lactic Acid Total Bilirubin AST ALT Lactate Dehydrogenase C-Reactive Protein NT-Pro-B Natriuret Pep Total Protein Albumin Triglycerides Arterial Blood Glucose Arterial Blood Ionized Calcium Urine Creatinine Random Vancomycin Coronavirus (PCR) SARS-CoV-2 IgG Ab 03/14/20 03/14/20 03/14/20 09:17 11:43 17:47 WBC RBC Hgb Hct MCH MCHC RDW Lymph % (Auto) [place] % (Auto) [place] # (Auto) Seg Neutrophils % Seg Neutrophils # APTT D-Dimer Heparin Anti-Xa Level ABG pH POC ABG pCO2 POC ABG pO2 ABG pO2 ABG HCO3 ABG Base Excess ABG Hemoglobin ABG Oxyhemoglobin ABG Sodium ABG Potassium ABG Glucose Oxyhemoglobin Carboxyhemoglobin Potassium Chloride Carbon Dioxide 34 H BUN Creatinine 0.5 L Glucose 204 H POC Glucose 283 H 254 H Hemoglobin A1c Lactic Acid Total Bilirubin 2.60 H AST 82 H ALT 152 H Lactate Dehydrogenase C-Reactive Protein NT-Pro-B Natriuret Pep Total Protein 5.7 L Albumin 3.0 L Triglycerides Arterial Blood Glucose Arterial Blood Ionized Calcium Urine Creatinine Random Vancomycin Coronavirus (PCR) SARS-CoV-2 IgG Ab 03/14/20 03/15/20 03/15/20 23:59 03:08 05:52 WBC RBC Hgb Hct MCH MCHC RDW Lymph % (Auto) [place] % (Auto) [place] # (Auto) Seg Neutrophils % Seg Neutrophils # APTT D-Dimer Heparin Anti-Xa Level ABG pH 7.536 H POC ABG pCO2 POC ABG pO2 ABG pO2 ABG HCO3 ABG Base Excess ABG Hemoglobin 10.7 L ABG Oxyhemoglobin ABG Sodium 135.2 L ABG Potassium ABG Glucose 317 H Oxyhemoglobin Carboxyhemoglobin Potassium Chloride Carbon Dioxide BUN Creatinine Glucose POC Glucose 293 H 293 H Hemoglobin A1c Lactic Acid Total Bilirubin AST ALT Lactate Dehydrogenase C-Reactive Protein NT-Pro-B Natriuret Pep Total Protein Albumin Triglycerides Arterial Blood Glucose 317 H Arterial Blood Ionized Calcium 4.5 L Urine Creatinine Random Vancomycin Coronavirus (PCR) SARS-CoV-2 IgG Ab 03/15/20 03/15/20 03/15/20 13:29 17:43 23:26 WBC RBC Hgb Hct MCH MCHC RDW Lymph % (Auto) [place] % (Auto) [place] # (Auto) Seg Neutrophils % Seg Neutrophils # APTT D-Dimer Heparin Anti-Xa Level ABG pH POC ABG pCO2 POC ABG pO2 ABG pO2 ABG HCO3 ABG Base Excess ABG Hemoglobin ABG Oxyhemoglobin ABG Sodium ABG Potassium ABG Glucose Oxyhemoglobin Carboxyhemoglobin Potassium Chloride Carbon Dioxide BUN Creatinine Glucose POC Glucose 299 H 327 H 325 H Hemoglobin A1c Lactic Acid Total Bilirubin AST ALT Lactate Dehydrogenase C-Reactive Protein NT-Pro-B Natriuret Pep Total Protein Albumin Triglycerides Arterial Blood Glucose Arterial Blood Ionized Calcium Urine Creatinine Random Vancomycin Coronavirus (PCR) SARS-CoV-2 IgG Ab 03/16/20 03/16/20 03/16/20 01:28 04:44 05:26 WBC RBC Hgb Hct MCH MCHC RDW Lymph % (Auto) [place] % (Auto) [place] # (Auto) Seg Neutrophils % Seg Neutrophils # APTT D-Dimer Heparin Anti-Xa Level ABG pH 7.540 H POC ABG pCO2 POC ABG pO2 ABG pO2 ABG HCO3 ABG Base Excess ABG Hemoglobin 10.5 L ABG Oxyhemoglobin ABG Sodium ABG Potassium ABG Glucose 312 H Oxyhemoglobin Carboxyhemoglobin Potassium Chloride Carbon Dioxide BUN 18 H Creatinine Glucose 330 H POC Glucose 264 H Hemoglobin A1c Lactic Acid Total Bilirubin AST ALT Lactate Dehydrogenase C-Reactive Protein NT-Pro-B Natriuret Pep Total Protein Albumin Triglycerides Arterial Blood Glucose 312 H Arterial Blood Ionized Calcium Urine Creatinine Random Vancomycin Coronavirus (PCR) SARS-CoV-2 IgG Ab 03/16/20 03/16/20 03/16/20 11:58 17:51 17:54 WBC RBC Hgb Hct MCH MCHC RDW Lymph % (Auto) [place] % (Auto) [place] # (Auto) Seg Neutrophils % Seg Neutrophils # APTT D-Dimer Heparin Anti-Xa Level ABG pH POC ABG pCO2 58.9 H POC ABG pO2 142.4 H ABG pO2 ABG HCO3 ABG Base Excess ABG Hemoglobin 11.6 L ABG Oxyhemoglobin ABG Sodium 135.9 L ABG Potassium 4.9 H ABG Glucose 332 H Oxyhemoglobin Carboxyhemoglobin Potassium Chloride Carbon Dioxide BUN Creatinine Glucose POC Glucose 196 H 285 H Hemoglobin A1c Lactic Acid Total Bilirubin AST ALT Lactate Dehydrogenase C-Reactive Protein NT-Pro-B Natriuret Pep Total Protein Albumin Triglycerides Arterial Blood Glucose 332 H Arterial Blood Ionized Calcium Urine Creatinine Random Vancomycin Coronavirus (PCR) SARS-CoV-2 IgG Ab 03/16/20 03/16/20 03/17/20 17:56 23:43 03:13 WBC RBC Hgb Hct MCH MCHC RDW Lymph % (Auto) [place] % (Auto) [place] # (Auto) Seg Neutrophils % Seg Neutrophils # APTT D-Dimer Heparin Anti-Xa Level ABG pH POC ABG pCO2 POC ABG pO2 ABG pO2 ABG HCO3 ABG Base Excess ABG Hemoglobin ABG Oxyhemoglobin ABG Sodium ABG Potassium ABG Glucose Oxyhemoglobin Carboxyhemoglobin Potassium Chloride Carbon Dioxide BUN Creatinine Glucose POC Glucose 258 H Hemoglobin A1c Lactic Acid Total Bilirubin AST ALT Lactate Dehydrogenase C-Reactive Protein NT-Pro-B Natriuret Pep Total Protein Albumin Triglycerides 252 H Arterial Blood Glucose Arterial Blood Ionized Calcium Urine Creatinine Random Vancomycin Coronavirus (PCR) SARS-CoV-2 IgG Ab Reactive A 03/17/20 03/17/20 03/17/20 05:33 11:12 11:55 WBC RBC Hgb 9.2 L Hct 29.7 L MCH 25 L MCHC RDW 19.9 H Lymph % (Auto) [place] % (Auto) [place] # (Auto) Seg Neutrophils % Seg Neutrophils # APTT D-Dimer Heparin Anti-Xa Level ABG pH POC ABG pCO2 POC ABG pO2 ABG pO2 ABG HCO3 ABG Base Excess ABG Hemoglobin ABG Oxyhemoglobin ABG Sodium ABG Potassium ABG Glucose Oxyhemoglobin Carboxyhemoglobin Potassium Chloride Carbon Dioxide BUN Creatinine Glucose POC Glucose 157 H 112 H Hemoglobin A1c Lactic Acid Total Bilirubin AST ALT Lactate Dehydrogenase C-Reactive Protein NT-Pro-B Natriuret Pep Total Protein Albumin Triglycerides Arterial Blood Glucose Arterial Blood Ionized Calcium Urine Creatinine Random Vancomycin Coronavirus (PCR) SARS-CoV-2 IgG Ab 03/17/20 03/17/20 03/17/20 11:55 11:55 17:20 WBC RBC Hgb Hct MCH MCHC RDW Lymph % (Auto) [place] % (Auto) [place] # (Auto) Seg Neutrophils % Seg Neutrophils # APTT D-Dimer Heparin Anti-Xa Level ABG pH POC ABG pCO2 POC ABG pO2 ABG pO2 ABG HCO3 ABG Base Excess ABG Hemoglobin 10.2 L ABG Oxyhemoglobin ABG Sodium ABG Potassium ABG Glucose 137 H Oxyhemoglobin Carboxyhemoglobin Potassium Chloride Carbon Dioxide BUN 21 H Creatinine 0.5 L Glucose 118 H POC Glucose 178 H Hemoglobin A1c Lactic Acid Total Bilirubin AST ALT Lactate Dehydrogenase C-Reactive Protein NT-Pro-B Natriuret Pep Total Protein Albumin Triglycerides Arterial Blood Glucose 137 H Arterial Blood Ionized Calcium Urine Creatinine Random Vancomycin Coronavirus (PCR) SARS-CoV-2 IgG Ab 03/18/20 03/18/20 03/18/20 00:16 03:33 05:48 WBC RBC Hgb Hct MCH MCHC RDW Lymph % (Auto) [place] % (Auto) [place] # (Auto) Seg Neutrophils % Seg Neutrophils # APTT D-Dimer Heparin Anti-Xa Level ABG pH 7.568 H POC ABG pCO2 30.6 L POC ABG pO2 167.6 H ABG pO2 ABG HCO3 ABG Base Excess ABG Hemoglobin 10.9 L ABG Oxyhemoglobin ABG Sodium 133.8 L ABG Potassium ABG Glucose 125 H Oxyhemoglobin Carboxyhemoglobin Potassium Chloride Carbon Dioxide BUN Creatinine Glucose POC Glucose 119 H 114 H Hemoglobin A1c Lactic Acid Total Bilirubin AST ALT Lactate Dehydrogenase C-Reactive Protein NT-Pro-B Natriuret Pep Total Protein Albumin Triglycerides Arterial Blood Glucose 125 H Arterial Blood Ionized Calcium Urine Creatinine Random Vancomycin Coronavirus (PCR) SARS-CoV-2 IgG Ab 03/18/20 03/18/20 03/18/20 11:46 17:11 23:18 WBC RBC Hgb Hct MCH MCHC RDW Lymph % (Auto) [place] % (Auto) [place] # (Auto) Seg Neutrophils % Seg Neutrophils # APTT D-Dimer Heparin Anti-Xa Level ABG pH POC ABG pCO2 POC ABG pO2 ABG pO2 ABG HCO3 ABG Base Excess ABG Hemoglobin ABG Oxyhemoglobin ABG Sodium ABG Potassium ABG Glucose Oxyhemoglobin Carboxyhemoglobin Potassium Chloride Carbon Dioxide BUN Creatinine Glucose POC Glucose 165 H 155 H 142 H Hemoglobin A1c Lactic Acid Total Bilirubin AST ALT Lactate Dehydrogenase C-Reactive Protein NT-Pro-B Natriuret Pep Total Protein Albumin Triglycerides Arterial Blood Glucose Arterial Blood Ionized Calcium Urine Creatinine Random Vancomycin Coronavirus (PCR) SARS-CoV-2 IgG Ab 03/19/20 03/19/20 03/19/20 04:41 05:03 10:47 WBC RBC Hgb Hct MCH MCHC RDW Lymph % (Auto) [place] % (Auto) [place] # (Auto) Seg Neutrophils % Seg Neutrophils # APTT D-Dimer Heparin Anti-Xa Level ABG pH 7.041 L 7.231 L POC ABG pCO2 100.4 H 67.5 H POC ABG pO2 142.4 H ABG pO2 ABG HCO3 ABG Base Excess ABG Hemoglobin 11.2 L 9.7 L ABG Oxyhemoglobin ABG Sodium 135.8 L 134.8 L ABG Potassium 5.3 H 4.8 H ABG Glucose 150 H 160 H Oxyhemoglobin Carboxyhemoglobin 1.6 H Potassium Chloride Carbon Dioxide BUN Creatinine Glucose POC Glucose 123 H Hemoglobin A1c Lactic Acid Total Bilirubin AST ALT Lactate Dehydrogenase C-Reactive Protein NT-Pro-B Natriuret Pep Total Protein Albumin Triglycerides Arterial Blood Glucose 150 H 160 H Arterial Blood Ionized Calcium Urine Creatinine Random Vancomycin Coronavirus (PCR) SARS-CoV-2 IgG Ab 03/19/20 03/19/20 03/19/20 11:41 14:00 14:00 WBC RBC Hgb 10.0 L Hct MCH 26 L MCHC RDW 20.5 H Lymph % (Auto) [place] % (Auto) [place] # (Auto) Seg Neutrophils % Seg Neutrophils # APTT 22.4 L D-Dimer Heparin Anti-Xa Level ABG pH POC ABG pCO2 POC ABG pO2 ABG pO2 ABG HCO3 ABG Base Excess ABG Hemoglobin ABG Oxyhemoglobin ABG Sodium ABG Potassium ABG Glucose Oxyhemoglobin Carboxyhemoglobin Potassium Chloride Carbon Dioxide BUN Creatinine Glucose POC Glucose 153 H Hemoglobin A1c Lactic Acid Total Bilirubin AST ALT Lactate Dehydrogenase C-Reactive Protein NT-Pro-B Natriuret Pep Total Protein Albumin Triglycerides Arterial Blood Glucose Arterial Blood Ionized Calcium Urine Creatinine Random Vancomycin Coronavirus (PCR) SARS-CoV-2 IgG Ab 03/19/20 03/19/20 03/19/20 14:00 14:40 21:29 WBC RBC Hgb Hct MCH MCHC RDW Lymph % (Auto) [place] % (Auto) [place] # (Auto) Seg Neutrophils % Seg Neutrophils # APTT D-Dimer Heparin Anti-Xa Level ABG pH 7.168 L POC ABG pCO2 79.0 H POC ABG pO2 56.5 L 61.2 L ABG pO2 ABG HCO3 ABG Base Excess ABG Hemoglobin 10.8 L 10.0 L ABG Oxyhemoglobin 82.6 L 89.5 L ABG Sodium 135.6 L ABG Potassium ABG Glucose 214 H 99 H Oxyhemoglobin Carboxyhemoglobin 2.0 H Potassium Chloride Carbon Dioxide BUN 42 H Creatinine 2.5 H D Glucose 235 H POC Glucose Hemoglobin A1c Lactic Acid Total Bilirubin AST ALT Lactate Dehydrogenase C-Reactive Protein NT-Pro-B Natriuret Pep Total Protein Albumin Triglycerides Arterial Blood Glucose 214 H 99 H Arterial Blood Ionized Calcium Urine Creatinine Random Vancomycin Coronavirus (PCR) SARS-CoV-2 IgG Ab 03/19/20 03/20/20 03/20/20 21:56 05:00 05:00 WBC RBC Hgb Hct MCH MCHC RDW Lymph % (Auto) [place] % (Auto) [place] # (Auto) Seg Neutrophils % Seg Neutrophils # APTT D-Dimer Heparin Anti-Xa Level 0.26 L ABG pH POC ABG pCO2 POC ABG pO2 ABG pO2 ABG HCO3 ABG Base Excess ABG Hemoglobin ABG Oxyhemoglobin ABG Sodium ABG Potassium ABG Glucose Oxyhemoglobin Carboxyhemoglobin Potassium Chloride Carbon Dioxide BUN 48 H Creatinine 2.2 H Glucose 138 H POC Glucose Hemoglobin A1c Lactic Acid Total Bilirubin AST ALT Lactate Dehydrogenase C-Reactive Protein NT-Pro-B Natriuret Pep Total Protein Albumin Triglycerides Arterial Blood Glucose Arterial Blood Ionized Calcium Urine Creatinine Random Vancomycin 54.2 H Coronavirus (PCR) SARS-CoV-2 IgG Ab 03/20/20 03/20/20 03/20/20 05:16 07:15 11:52 WBC RBC Hgb Hct MCH MCHC RDW Lymph % (Auto) [place] % (Auto) [place] # (Auto) Seg Neutrophils % Seg Neutrophils # APTT D-Dimer Heparin Anti-Xa Level 0.10 L ABG pH POC ABG pCO2 POC ABG pO2 ABG pO2 ABG HCO3 ABG Base Excess ABG Hemoglobin ABG Oxyhemoglobin ABG Sodium ABG Potassium ABG Glucose Oxyhemoglobin Carboxyhemoglobin Potassium Chloride Carbon Dioxide BUN Creatinine Glucose POC Glucose 128 H 145 H Hemoglobin A1c Lactic Acid Total Bilirubin AST ALT Lactate Dehydrogenase C-Reactive Protein NT-Pro-B Natriuret Pep Total Protein Albumin Triglycerides Arterial Blood Glucose Arterial Blood Ionized Calcium Urine Creatinine Random Vancomycin Coronavirus (PCR) SARS-CoV-2 IgG Ab 03/20/20 03/20/20 03/20/20 13:44 14:55 17:04 WBC RBC Hgb Hct MCH MCHC RDW Lymph % (Auto) [place] % (Auto) [place] # (Auto) Seg Neutrophils % Seg Neutrophils # APTT D-Dimer Heparin Anti-Xa Level 0.79 H ABG pH POC ABG pCO2 POC ABG pO2 ABG pO2 ABG HCO3 ABG Base Excess ABG Hemoglobin ABG Oxyhemoglobin ABG Sodium ABG Potassium ABG Glucose Oxyhemoglobin Carboxyhemoglobin Potassium Chloride Carbon Dioxide BUN Creatinine Glucose POC Glucose 179 H Hemoglobin A1c Lactic Acid Total Bilirubin AST ALT Lactate Dehydrogenase C-Reactive Protein NT-Pro-B Natriuret Pep Total Protein Albumin Triglycerides Arterial Blood Glucose Arterial Blood Ionized Calcium Urine Creatinine 137.9 H Random Vancomycin Coronavirus (PCR) SARS-CoV-2 IgG Ab 03/20/20 03/21/20 03/21/20 23:23 05:29 08:37 WBC RBC Hgb Hct MCH MCHC RDW Lymph % (Auto) [place] % (Auto) [place] # (Auto) Seg Neutrophils % Seg Neutrophils # APTT D-Dimer Heparin Anti-Xa Level ABG pH POC ABG pCO2 POC ABG pO2 210.3 H ABG pO2 ABG HCO3 ABG Base Excess ABG Hemoglobin 9.5 L ABG Oxyhemoglobin ABG Sodium 132.1 L ABG Potassium ABG Glucose 179 H Oxyhemoglobin Carboxyhemoglobin Potassium Chloride Carbon Dioxide BUN Creatinine Glucose POC Glucose 168 H 157 H Hemoglobin A1c Lactic Acid Total Bilirubin AST ALT Lactate Dehydrogenase C-Reactive Protein NT-Pro-B Natriuret Pep Total Protein Albumin Triglycerides Arterial Blood Glucose 179 H Arterial Blood Ionized Calcium 4.5 L Urine Creatinine Random Vancomycin Coronavirus (PCR) SARS-CoV-2 IgG Ab 03/21/20 12:01 WBC RBC Hgb Hct MCH MCHC RDW Lymph % (Auto) [place] % (Auto) [place] # (Auto) Seg Neutrophils % Seg Neutrophils # APTT D-Dimer Heparin Anti-Xa Level ABG pH POC ABG pCO2 POC ABG pO2 ABG pO2 ABG HCO3 ABG Base Excess ABG Hemoglobin ABG Oxyhemoglobin ABG Sodium ABG Potassium ABG Glucose Oxyhemoglobin Carboxyhemoglobin Potassium Chloride Carbon Dioxide BUN Creatinine Glucose POC Glucose 171 H Hemoglobin A1c Lactic Acid Total Bilirubin AST ALT Lactate Dehydrogenase C-Reactive Protein NT-Pro-B Natriuret Pep Total Protein Albumin Triglycerides Arterial Blood Glucose Arterial Blood Ionized Calcium Urine Creatinine Random Vancomycin Coronavirus (PCR) SARS-CoV-2 IgG Ab Chest x-ray: other (none today) Allied health notes reviewed: nursing
[2020-03-21 13:13] LABS: Albumin 1.7 g/dL (3.9-5); Calcium 6.8 mg/dL (8.4-10.2)
--- NOTE | 2020-03-21 16:11 | Progress Note ---
Assessment and Plan -Acute hypoxemic respiratory failure due to COVID-19 and staph PNA patient now intubated since 03/13 following a cardiac arrest self extubated today then reintubated Critical care following, continue scheduled breathing treatment, IV steroid Unable to wean at present. Wean off from vent as tolerated --Status post cardiac arrest on 03/13 and today Patient currently intubated, 2D echo showed preserved EF with right ventricular pressure 68 --B/l PE, continue on heparin drip --Novel Coronavirus infection Coronavirus protocol: Infectious disease service consulted, contact precautions, isolation precaution, steroid therapy, follow inflammatory markers Diagnosed over 2 weeks ago, as such not a candidate for remdesivir. Given that her ferritin is normal, less likely to be in cytokine storm. -Patient also positive for COVID-19 antibody -no scope for convalescent plasma therapy --ID following. -- Pneumonia with MRSA and COVID Pneumonia protocol: Supplemental oxygen, IV antibiotic therapy, pulse oximetry, blood culture. - lactic acid and procalcitonin -Continue vancomycin as sputum culture growing MRSA for 7 days -Vancomycin to complete 10 days. --Sepsis, due to COVID-19 and MRSA pneumonia Likely present on admission, continue antibiotics, follow inflammatory markers -- Hypertension Blood pressure remains optimally controlled controlled. Hydralazine. Monitor blood pressure every shift, continue medical management -- Diabetes type 2 --Remains suboptimally controlled. Increase insulin to 33 units. Tube feeding diet, sliding scale insulin therapy, Accu-Chek, hypoglycemia protocol -- Obesity hypoventilation syndrome BMI 78.7, monitor weight pulse oximetry, nebulizer therapy, supplemental oxygen, patient now intubated outpatient pulmonary follow-up for sleep study when clinically stable, need recommendation on balanced diet, increase physical activity at discharge -- Pulmonary hypertension Supportive care, outpatient pulmonology follow-up for sleep study. And also need evaluation for vasodilator therapy. -- DVT prophylaxis SCD to bilateral lower extremities while in bed, prophylactic anticoagulation. The high probability of a clinically significant, sudden or life threatening deterioration of the [pulmonary, cardiac, renal, neuro] system(s) required my full and direct attention, intervention and personal management. The aggregate critical care time was [33] minutes. This time is in addition to time spent performing reported procedures but includes the following: [x] Data Review and interpretation [x] Patient assessment and monitoring of vital signs [x] Documentation [x] Medication orders and management Subjective Date of service: 03/21/20 Principal diagnosis: Cardiac arrest; Ac. hypoxemic resp failure; COVID 19 infxn; Pulm HTN; OHS Interval history: 29-year-old female past medical history morbid obesity, obesity hypoventilation syndrome, diabetes admitted with shortness of breath. Patient is positive for COVID-19 diagnosed 2 weeks ago, patient currently intubated following a cardiac arrest on 03/13/20. ID following and critical care following. Sputum culture is positive for staph aureus. 03/16: cont iv abx, follow pending sputum Cx. wean off vent as tolerated 03/17: Sputum culture positive for MRSA, stop cefepime continue on vancomycin for 7 days per ID recommendation. Wean off vent as tolerated, continue tube feeding 03/19: Patient self extubated herself and then developed cardiac arrest. ACLS initiated and ROSC obtained Discussed with RN at the bedside. CTA chest showed b/l PE, heparin drip initiated. 03/20 at present patient remains intubated was reintubated. CT scan chest showed small PE remains on heparin drip. 03/21 nicolas intubated no new changes over p.m. Vancomycin for 10 days per ID. Unable to wean at this time. Objective - Constitutional Vitals: Vital Signs - 12hr 03/21/20 03/21/20 03/21/20 04:15 04:30 04:45 Temperature Pulse Rate 91 H 90 88 Pulse Rate [ From Monitor] Respiratory 25 H 25 H 25 H Rate Blood Pressure 108/37 101/37 110/47 O2 Sat by Pulse 100 100 100 Oximetry 03/21/20 03/21/20 03/21/20 05:00 05:15 05:30 Temperature Pulse Rate 88 86 86 Pulse Rate [ From Monitor] Respiratory 25 H 25 H 25 H Rate Blood Pressure 119/43 116/41 102/43 O2 Sat by Pulse 100 100 100 Oximetry 03/21/20 03/21/20 03/21/20 05:45 06:00 06:15 Temperature Pulse Rate 86 87 92 H Pulse Rate [ From Monitor] Respiratory 25 H 25 H 25 H Rate Blood Pressure 109/36 99/33 107/60 O2 Sat by Pulse 99 99 99 Oximetry 03/21/20 03/21/20 03/21/20 06:30 06:45 07:00 Temperature Pulse Rate 89 92 H 90 Pulse Rate [ From Monitor] Respiratory 25 H 14 22 Rate Blood Pressure 106/34 112/30 93/33 O2 Sat by Pulse 99 97 100 Oximetry 03/21/20 03/21/20 03/21/20 07:15 07:30 07:45 Temperature Pulse Rate 96 H 88 89 Pulse Rate [ From Monitor] Respiratory 25 H 25 H 25 H Rate Blood Pressure 142/78 113/34 109/40 O2 Sat by Pulse 98 99 99 Oximetry 03/21/20 03/21/20 03/21/20 08:00 08:15 08:26 Temperature 98.4 F Pulse Rate 88 87 86 Pulse Rate [ 86 From Monitor] Respiratory 25 H 25 H Rate Blood Pressure 101/39 109/47 109/47 O2 Sat by Pulse 99 100 100 Oximetry 03/21/20 03/21/20 03/21/20 08:30 08:43 08:45 Temperature Pulse Rate 86 87 87 Pulse Rate [ From Monitor] Respiratory 25 H 25 H Rate Blood Pressure 106/47 107/39 107/39 O2 Sat by Pulse 100 99 99 Oximetry 03/21/20 03/21/20 03/21/20 09:00 09:15 09:30 Temperature Pulse Rate 87 86 84 Pulse Rate [ From Monitor] Respiratory 25 H 25 H 25 H Rate Blood Pressure 99/40 97/43 104/38 O2 Sat by Pulse 99 99 100 Oximetry 03/21/20 03/21/20 03/21/20 09:45 10:00 10:15 Temperature Pulse Rate 84 93 H 89 Pulse Rate [ From Monitor] Respiratory 25 H 25 H 25 H Rate Blood Pressure 105/39 105/39 131/51 O2 Sat by Pulse 99 99 99 Oximetry 03/21/20 03/21/20 03/21/20 10:30 10:46 11:00 Temperature Pulse Rate 88 88 89 Pulse Rate [ From Monitor] Respiratory 25 H 25 H 25 H Rate Blood Pressure 117/62 130/55 121/52 O2 Sat by Pulse 100 100 100 Oximetry 03/21/20 03/21/20 03/21/20 11:15 11:30 11:45 Temperature Pulse Rate 89 90 90 Pulse Rate [ From Monitor] Respiratory 25 H 25 H 25 H Rate Blood Pressure 117/54 121/61 120/62 O2 Sat by Pulse 100 100 99 Oximetry 03/21/20 03/21/20 03/21/20 12:00 12:07 12:15 Temperature 98.8 F Pulse Rate 91 H 92 H 92 H Pulse Rate [ 95 H From Monitor] Respiratory 25 H 25 H Rate Blood Pressure 126/57 126/57 114/49 O2 Sat by Pulse 99 98 98 Oximetry 03/21/20 03/21/20 03/21/20 12:30 12:45 13:00 Temperature Pulse Rate 93 H 94 H 95 H Pulse Rate [ From Monitor] Respiratory 25 H 25 H 25 H Rate Blood Pressure 112/48 104/51 97/53 O2 Sat by Pulse 97 97 97 Oximetry General appearance: Present: no acute distress, other (Morbidly obese) - Neck Neck: supple - Respiratory Respiratory: bilateral: diminished - Cardiovascular Rhythm: regular Extremities: no ischemia Extremity abnormal: edema - Gastrointestinal General gastrointestinal: Present: soft, non-tender, non-distended, normal bowel sounds - Neurologic Neurologic: other (Nicolas intubated sedated.) - Labs CBC & Chem 7: 03/19/20 14:00 03/21/20 12:20 Labs: Abnormal lab results 03/20/20 03/20/20 03/20/20 Range/Units 14:55 17:04 23:23 Heparin Anti-Xa Level 0.79 H (0.3-0.7) U.I./ml POC ABG pO2 (83-108) mmHg ABG Hemoglobin (12.0-17.5) ABG Sodium (136.0-145.0) mmol/L ABG Glucose (65-95) mg/dL Sodium (137-145) mmol/L Carbon Dioxide (22-30) mmol/L BUN (7-17) mg/dL Creatinine (0.6-1.2) mg/dL Glucose (65-100) mg/dL POC Glucose 179 H 168 H (70-105) mg/dL Calcium (8.4-10.2) mg/dL AST (5-40) units/L ALT (7-56) units/L Total Protein (6.3-8.2) g/dL Albumin (3.9-5) g/dL Arterial Blood Glucose (65-95) mg/dL Arterial Blood Ionized Calcium (4.6-5.3) mg/dL 03/21/20 03/21/20 03/21/20 Range/Units 05:29 08:37 12:01 Heparin Anti-Xa Level (0.3-0.7) U.I./ml POC ABG pO2 210.3 H (83-108) mmHg ABG Hemoglobin 9.5 L (12.0-17.5) ABG Sodium 132.1 L (136.0-145.0) mmol/L ABG Glucose 179 H (65-95) mg/dL Sodium (137-145) mmol/L Carbon Dioxide (22-30) mmol/L BUN (7-17) mg/dL Creatinine (0.6-1.2) mg/dL Glucose (65-100) mg/dL POC Glucose 157 H 171 H (70-105) mg/dL Calcium (8.4-10.2) mg/dL AST (5-40) units/L ALT (7-56) units/L Total Protein (6.3-8.2) g/dL Albumin (3.9-5) g/dL Arterial Blood Glucose 179 H (65-95) mg/dL Arterial Blood Ionized Calcium 4.5 L (4.6-5.3) mg/dL 03/21/20 Range/Units 12:20 Heparin Anti-Xa Level (0.3-0.7) U.I./ml POC ABG pO2 (83-108) mmHg ABG Hemoglobin (12.0-17.5) ABG Sodium (136.0-145.0) mmol/L ABG Glucose (65-95) mg/dL Sodium 133 L (137-145) mmol/L Carbon Dioxide 19 L (22-30) mmol/L BUN 56 H (7-17) mg/dL Creatinine 2.3 H (0.6-1.2) mg/dL Glucose 157 H (65-100) mg/dL POC Glucose (70-105) mg/dL Calcium 6.8 L D (8.4-10.2) mg/dL AST 54 H (5-40) units/L ALT 84 H (7-56) units/L Total Protein 4.4 L (6.3-8.2) g/dL Albumin 1.7 L (3.9-5) g/dL Arterial Blood Glucose (65-95) mg/dL Arterial Blood Ionized Calcium (4.6-5.3) mg/dL - Imaging and cardiology Chest x-ray: report reviewed, image reviewed CT scan - chest: report reviewed HEART Score - HEART Score Troponin: Troponin T 0.017 ng/mL (0.00-0.029) 03/14/20 09:17
[2020-03-21] MEDS: INSULIN GLARGINE 100 UNITS/ML SUB-Q SCH (21:54)
[2020-03-21] MEDS ORDERED: SODIUM CHLORIDE 0.9% 1000 ML 1,000 ML IV ONE (23:40)
[2020-03-21] MEDS ORDERED: VASOPRESSIN 20 UNIT in SODIUM CHLORIDE 0.9% 100 ML IV SCH (23:45)
[2020-03-22] MEDS: fentaNYL DRIP Premix 2,000 MCG/100 ML BAG IV SCH ×3 (00:33→06:15)
[2020-03-22 01:22] LABS: Hematocrit 30.2 % (30.3-42.9); Hemoglobin 9.3 gm/dl (10.1-14.3)
--- NOTE | 2020-03-22 04:35 | XRay Report ---
CHEST 1 VIEW INDICATION / CLINICAL INFORMATION: pneumonia. COMPARISON: Chest radiograph 03/20/2020 FINDINGS: SUPPORT DEVICES: Stable position of endotracheal tube, enteric tube, and right-sided PICC. HEART / MEDIASTINUM: Stable cardiomegaly. LUNGS / PLEURA: Continued improvement of bilateral pleural-parenchymal opacities. No pneumothorax. ADDITIONAL FINDINGS: No significant additional findings. IMPRESSION: 1. Continued improvement in bilateral pleural-parenchymal opacities. Signer Name: Umm Chandler MD Signed: 03/22/2020 4:31 AM Workstation Name: [id number]
[2020-03-22] MEDS: FUROSEMIDE 40 MG/4 ML INJ IV SCH (06:12)
[2020-03-22] MEDS: INSULIN LISPRO 100 UNIT/ML VIAL 3 mL SUB-Q SCH ×3 (06:12→17:11)
[2020-03-22 08:16] LABS: Basophils # (Auto) 0.1 K/mm3 (0.0-0.1); Basophils % (Auto) 0.7 % (0.0-1.8); Eosinophils # (Auto) 0.1 K/mm3 (0.0-0.4); Eosinophils % (Auto) 1.3 % (0.0-4.3); Hematocrit 26.8 % (30.3-42.9); Hemoglobin 8.4 gm/dl (10.1-14.3); Lymphocytes # (Auto) 0.7 K/mm3 (1.2-5.4); Lymphocytes % (Auto) 7.7 % (13.4-35.0); Mean Corpuscular HGB Conc 31 % (30-34); Mean Corpuscular Volume 80 fl (79-97); Monocytes # (Auto) 0.6 K/mm3 (0.0-0.8); Monocytes % (Auto) 6.3 % (0.0-7.3); Platelet Count 249 K/mm3 (140-440); Red Blood Count 3.34 M/mm3 (3.65-5.03)
[2020-03-22 08:46] LABS: Red Cell Distribution Width 20.2 % (13.2-15.2)
[2020-03-22 09:20] LABS: Calcium 8.4 mg/dL (8.4-10.2)
[2020-03-22] MEDS: POLYETHYLENE GLYCOL 3350 17 GM POWDER PO SCH (10:01)
[2020-03-22] MEDS: SENNOSIDES/DOCUSATE SODIUM 8.6/50 MG TAB PO SCH ×2 (10:01→21:23)
[2020-03-22] MEDS: GLYCOPYRROLATE 2 MG TAB PO SCH ×3 (10:01→20:20)
[2020-03-22] MEDS: SCOPOLAMINE TRANSDERMAL PATCH 72 HR TD SCH (10:01)
[2020-03-22] MEDS: LANSOPRAZOLE 30 MG SOLUTAB FEEDTUBE SCH (10:01)
--- NOTE | 2020-03-22 10:47 | Cat Scan Report ---
NONENHANCED CT SCAN OF THE HEAD: INDICATION / CLINICAL INFORMATION: 29 years Female; change in mental status; intubated TECHNIQUE: Routine CT head without contrast. All CT scans at this location are performed using CT dos e reduction for ALARA by means of automated exposure control. COMPARISON: None. FINDINGS: BRAIN / INTRACRANIAL CONTENTS: Marked hypoattenuation in the cerebellar hemispheres bilaterally; four th ventricle could not be identified; ascending and descending tentorial herniations; supratentoriall y, jimenez matter white matter interface near the high convexity normal; poor [id number] in the bra in limits the evaluation of cerebral hemispheres; no midline shift; suprasellar cistern not effaced CRANIOCERVICAL JUNCTION: Descending tentorial herniation ORBITS: No significant abnormality of visualized orbits. SINUSES / MASTOIDS: Opacified paranasal sinuses; intubated ADDITIONAL FINDINGS: None. IMPRESSION: Markedly low attenuation areas in the cerebellar hemispheres Ischemia; ascending and descending tent orial herniation Signer Name: Clarke Blum MD Signed: 03/22/2020 10:43 AM Workstation Name: [id number]
--- NOTE | 2020-03-22 10:48 | Progress Note ---
Assessment and Plan Cardiopulmoanry arrest with ROSC Acute hypoxemic respiratory failure on MVS COVID 19 infection MICHELLE Extreme obesity Pulmonary HTN Obesity hypoventilation syndrome - begin Dexamethasone 4 mg IV q8h re: tentative herniation - neurology consultation - increased Lantus to 40 units SQ daily - d/c Seroquel - called her mother to discuss new findings - FENA calculates as pre-renal, will continue IV hydration but also consult n ephrology - repeat CXR in am - FiO2 reduced to 70% - keep peep at 14 - continue full dose IV heparin for anticoagulation - continue care as below otherwise; - continue difficult airway sign - continue Seroquel 300 mg BID for sedation / anxiolysis - continue bowel regimen - adjust Geodon dose based on response - prn gentle diuresis; monitor output and follow renal function/electrolytes - contact and airborne isolation per facility protocols for COVID - Daily SAT's and SBT assessment as tolerated - continue accuchecks with glycemic control per SSI (While critically ill target blood glucose of 140-180 mg/dL; avoid hypoglycemia) - sedation prn for target RASS -1 to -2 - continue to wean supplemental oxygen for target O2 sat's > 92% acutely - VAP bundle addressed - continue lung protective strategies - continue bronchodilators with pulmonary hygiene per RT - wean per pulmonary driven protocols otherwise - V[place]la catheter in this critically ill patient - Conservative fluid management - avoid nephrotoxins, renally dose all medications - Empiric antibiotics to include HAP coverage (on Vanc and Cefepime); adjust per ID recommendations and clinical response - prn analgesia per CPOT score - Maintenance of sleep-wake cycle, avoid delirium - continue enteral nutritional support at goal rate as tolerated - G.I. & VTE prophylaxis withy Famotidine and Lovenox - PT/OT/ROM exercises - continue mobility protocols for pressure ulcer prophylaxis - Monitor hemodynamics closely - continue other care per attending / other consultants - discharge planning ongoing concurrently .... Re-evaluate in am & prn CONDITION: CRITICAL PROGNOSIS: GUARDED CODE STATUS: FULL CODE The high probability of a clinically significant, sudden or life-threatening deterioration of the [respiratory, cardiovascular and neurologic] system (s) required my full and direct attention, intervention and personal management. The aggregate critical care time was [32] minutes without overlap. Time includes spent on; [x] Data Review and interpretation [x] Patient assessment and monitoring of vital signs [x] Documentation [x] Medication orders and management Subjective Date of service: 03/22/20 Principal diagnosis: Cardiac arrest; Ac. hypoxemic resp failure; COVID 19 infxn; Pulm HTN; OHS Interval history: Patient is seen today for: Cardiopulmoanry arrest with ROSC; Acute hypoxemic respiratory failure on MVS; COVID; Extreme obesity; Pulmonary HTN; Obesity hypoventilation syndrome Seen and examined at bedside; 24hour events reviewed; nursing and respiratory care staff consulted; no adverse overnight events reported to me; resting peac efully in bed; remains on MVS; h Objective Vital Signs - 12hr 03/21/20 03/21/20 03/21/20 23:00 23:16 23:24 Temperature Pulse Rate 99 H 99 H 99 H Pulse Rate [ From Monitor] Respiratory 25 H 24 25 H Rate Blood Pressure 97/57 81/38 86/43 O2 Sat by Pulse 99 99 99 Oximetry 03/21/20 03/21/20 03/21/20 23:30 23:46 23:47 Temperature 98.9 F Pulse Rate 103 H 126 H Pulse Rate [ From Monitor] Respiratory 25 H 24 Rate Blood Pressure 97/53 71/27 O2 Sat by Pulse 99 97 Oximetry 03/21/20 03/22/20 03/22/20 23:57 00:00 00:16 Temperature Pulse Rate 126 H 107 H 111 H Pulse Rate [ 112 H From Monitor] Respiratory 21 24 Rate Blood Pressure 71/27 241/136 139/74 O2 Sat by Pulse 97 97 95 Oximetry 03/22/20 03/22/20 03/22/20 00:30 00:46 01:00 Temperature Pulse Rate 107 H 99 H 100 H Pulse Rate [ From Monitor] Respiratory 25 H 25 H 25 H Rate Blood Pressure 139/70 114/55 127/64 O2 Sat by Pulse 95 95 95 Oximetry 03/22/20 03/22/20 03/22/20 01:15 01:30 01:46 Temperature Pulse Rate 100 H 101 H 91 H Pulse Rate [ From Monitor] Respiratory 25 H 25 H 25 H Rate Blood Pressure 151/88 149/92 138/80 O2 Sat by Pulse 96 96 97 Oximetry 03/22/20 03/22/20 03/22/20 02:00 02:16 02:30 Temperature Pulse Rate 89 88 88 Pulse Rate [ From Monitor] Respiratory 25 H 25 H 25 H Rate Blood Pressure 137/55 118/57 114/57 O2 Sat by Pulse 97 98 98 Oximetry 03/22/20 03/22/20 03/22/20 02:46 03:00 03:16 Temperature Pulse Rate 89 89 89 Pulse Rate [ From Monitor] Respiratory 25 H 25 H 25 H Rate Blood Pressure 111/55 118/53 101/51 O2 Sat by Pulse 98 98 98 Oximetry 03/22/20 03/22/20 03/22/20 03:21 03:30 03:46 Temperature 98.8 F Pulse Rate 92 H 96 H Pulse Rate [ From Monitor] Respiratory 25 H 25 H Rate Blood Pressure 101/42 114/41 O2 Sat by Pulse 98 99 Oximetry 03/22/20 03/22/20 03/22/20 04:00 04:16 04:26 Temperature Pulse Rate 100 H 97 H 95 H Pulse Rate [ 100 H From Monitor] Respiratory 25 H 25 H Rate Blood Pressure 118/48 120/49 119/53 O2 Sat by Pulse 99 99 99 Oximetry 03/22/20 03/22/20 03/22/20 04:30 04:46 05:00 Temperature Pulse Rate 94 H 99 H 93 H Pulse Rate [ From Monitor] Respiratory 25 H 20 25 H Rate Blood Pressure 118/50 115/41 126/52 O2 Sat by Pulse 99 98 99 Oximetry 03/22/20 03/22/20 03/22/20 05:16 05:30 05:46 Temperature Pulse Rate 90 89 87 Pulse Rate [ From Monitor] Respiratory 25 H 25 H 25 H Rate Blood Pressure 133/64 130/63 125/61 O2 Sat by Pulse 99 100 100 Oximetry 03/22/20 03/22/20 03/22/20 06:00 06:15 06:30 Temperature Pulse Rate 87 88 84 Pulse Rate [ From Monitor] Respiratory 25 H 25 H 25 H Rate Blood Pressure 130/57 133/59 135/55 O2 Sat by Pulse 100 100 99 Oximetry 03/22/20 03/22/20 03/22/20 06:46 07:00 07:16 Temperature Pulse Rate 86 92 H 92 H Pulse Rate [ From Monitor] Respiratory 25 H 25 H 25 H Rate Blood Pressure 113/33 118/47 113/33 O2 Sat by Pulse 99 99 100 Oximetry 03/22/20 03/22/20 03/22/20 07:30 07:46 08:00 Temperature 98.1 F Pulse Rate 91 H 89 90 Pulse Rate [ 100 H From Monitor] Respiratory 25 H 25 H 25 H Rate Blood Pressure 127/64 119/71 124/70 O2 Sat by Pulse 100 100 100 Oximetry 03/22/20 08:22 Temperature Pulse Rate 87 Pulse Rate [ From Monitor] Respiratory Rate Blood Pressure 134/59 O2 Sat by Pulse 99 Oximetry Constitutional: appears uncomfortable, other (young obese female with moderately increased respiratory effort at rest on MVS) Eyes: non-icteric ENT: oropharynx moist, oropharyngeal exudate pre (moderate), other (orally intubated, ETT 24 cm ) Neck: supple, no lymphadenopathy, other (large circumference) Effort: mildly labored Ascultation: Left: diminished breath sounds, Bilateral: rhonchi Percussion: Bilateral: not dull Cardiovascular: regular rate and rhythm, other (S1,S2) Gastrointestinal: normoactive bowel sounds, soft, non-distended (protuberant), other (obese) Integumentary: rash Extremities: no cyanosis, no edema, pulses normal, cool Neurologic: non-focal exam (moves all extremities, holding onto the rails), pupils equal and round, motor strength normal and, unable to assess Psychiatric: other (unable to assess) CBC and BMP: 03/22/20 08:00 03/22/20 08:00 ABG, PT/INR, D-dimer: ABG ABG pH 7.379 (7.320-7.450) 03/22/20 02:57 POC ABG pCO2 33.4 mmHg (32.0-48.0) 03/22/20 02:57 ABG pCO2 44.2 mm Hg 03/14/20 06:15 POC ABG pO2 141.4 mmHg (83-108) H 03/22/20 02:57 ABG pO2 92.8 mm Hg (80.0-90.0) H 03/14/20 06:15 POC ABG HCO3 19.3 03/22/20 02:57 ABG O2 Saturation 97.6 % (95.0-99.0) 03/14/20 06:15 PT/INR, D-dimer PT 13.9 Sec. (12.2-14.9) 03/19/20 14:00 INR 1.08 (0.87-1.13) 03/19/20 14:00 D-Dimer 1042.81 ng/mlDDU (0-234) H 03/09/20 08:27 Abnormal lab findings: Abnormal Labs 03/09/20 03/09/20 03/09/20 08:27 08:27 08:27 WBC 15.8 H RBC 5.43 H Hgb Hct MCH 24 L MCHC RDW 19.3 H Lymph % (Auto) [place] % (Auto) 8.2 H Lymph # (Auto) [place] # (Auto) 1.3 H Seg Neutrophils % 70.4 H Seg Neutrophils # 11.1 H APTT D-Dimer Heparin Anti-Xa Level ABG pH POC ABG pCO2 POC ABG pO2 ABG pO2 ABG HCO3 ABG Base Excess ABG Hemoglobin ABG Oxyhemoglobin ABG Sodium ABG Potassium ABG Glucose Oxyhemoglobin Carboxyhemoglobin Sodium Potassium Chloride 97.1 L Carbon Dioxide BUN 29 H Creatinine Glucose 178 H POC Glucose Hemoglobin A1c Lactic Acid 3.70 H* Calcium Total Bilirubin AST ALT Lactate Dehydrogenase 369 H C-Reactive Protein 3.00 H NT-Pro-B Natriuret Pep Total Protein Albumin Triglycerides Arterial Blood Glucose Arterial Blood Ionized Calcium Urine Creatinine Random Vancomycin Coronavirus (PCR) SARS-CoV-2 IgG Ab 03/09/20 03/09/20 03/09/20 08:27 08:27 08:27 WBC RBC Hgb Hct MCH MCHC RDW Lymph % (Auto) [place] % (Auto) Lymph # (Auto) [place] # (Auto) Seg Neutrophils % Seg Neutrophils # APTT D-Dimer 1042.81 H Heparin Anti-Xa Level ABG pH POC ABG pCO2 POC ABG pO2 ABG pO2 ABG HCO3 ABG Base Excess ABG Hemoglobin ABG Oxyhemoglobin ABG Sodium ABG Potassium ABG Glucose Oxyhemoglobin Carboxyhemoglobin Sodium Potassium Chloride Carbon Dioxide BUN Creatinine Glucose POC Glucose Hemoglobin A1c 8.0 H Lactic Acid Calcium Total Bilirubin AST ALT Lactate Dehydrogenase C-Reactive Protein NT-Pro-B Natriuret Pep 2914 H Total Protein Albumin Triglycerides Arterial Blood Glucose Arterial Blood Ionized Calcium Urine Creatinine Random Vancomycin Coronavirus (PCR) SARS-CoV-2 IgG Ab 03/09/20 03/09/20 03/10/20 08:43 23:04 05:23 WBC RBC Hgb Hct MCH MCHC RDW Lymph % (Auto) [place] % (Auto) Lymph # (Auto) [place] # (Auto) Seg Neutrophils % Seg Neutrophils # APTT D-Dimer Heparin Anti-Xa Level ABG pH POC ABG pCO2 POC ABG pO2 ABG pO2 ABG HCO3 ABG Base Excess ABG Hemoglobin ABG Oxyhemoglobin ABG Sodium ABG Potassium ABG Glucose Oxyhemoglobin Carboxyhemoglobin Sodium Potassium Chloride Carbon Dioxide BUN Creatinine Glucose POC Glucose 361 H Hemoglobin A1c Lactic Acid 6.80 H* Calcium Total Bilirubin AST ALT Lactate Dehydrogenase C-Reactive Protein NT-Pro-B Natriuret Pep Total Protein Albumin Triglycerides Arterial Blood Glucose Arterial Blood Ionized Calcium Urine Creatinine Random Vancomycin Coronavirus (PCR) Positive A SARS-CoV-2 IgG Ab 03/10/20 03/10/20 03/10/20 08:19 10:49 17:11 WBC RBC Hgb Hct MCH MCHC RDW Lymph % (Auto) [place] % (Auto) Lymph # (Auto) [place] # (Auto) Seg Neutrophils % Seg Neutrophils # APTT D-Dimer Heparin Anti-Xa Level ABG pH POC ABG pCO2 POC ABG pO2 ABG pO2 ABG HCO3 ABG Base Excess ABG Hemoglobin ABG Oxyhemoglobin ABG Sodium ABG Potassium ABG Glucose Oxyhemoglobin Carboxyhemoglobin Sodium Potassium Chloride Carbon Dioxide BUN Creatinine Glucose POC Glucose 371 H 423 H 373 H Hemoglobin A1c Lactic Acid Calcium Total Bilirubin AST ALT Lactate Dehydrogenase C-Reactive Protein NT-Pro-B Natriuret Pep Total Protein Albumin Triglycerides Arterial Blood Glucose Arterial Blood Ionized Calcium Urine Creatinine Random Vancomycin Coronavirus (PCR) SARS-CoV-2 IgG Ab 03/11/20 03/11/20 03/11/20 00:29 07:52 13:12 WBC RBC Hgb Hct MCH MCHC RDW Lymph % (Auto) [place] % (Auto) Lymph # (Auto) [place] # (Auto) Seg Neutrophils % Seg Neutrophils # APTT D-Dimer Heparin Anti-Xa Level ABG pH POC ABG pCO2 POC ABG pO2 ABG pO2 ABG HCO3 ABG Base Excess ABG Hemoglobin ABG Oxyhemoglobin ABG Sodium ABG Potassium ABG Glucose Oxyhemoglobin Carboxyhemoglobin Sodium Potassium Chloride Carbon Dioxide BUN Creatinine Glucose POC Glucose 242 H 233 H 352 H Hemoglobin A1c Lactic Acid Calcium Total Bilirubin AST ALT Lactate Dehydrogenase C-Reactive Protein NT-Pro-B Natriuret Pep Total Protein Albumin Triglycerides Arterial Blood Glucose Arterial Blood Ionized Calcium Urine Creatinine Random Vancomycin Coronavirus (PCR) SARS-CoV-2 IgG Ab 1103/11/20 03/12/20 15:24 22:54 08:22 WBC RBC Hgb Hct MCH MCHC RDW Lymph % (Auto) [place] % (Auto) Lymph # (Auto) [place] # (Auto) Seg Neutrophils % Seg Neutrophils # APTT D-Dimer Heparin Anti-Xa Level ABG pH POC ABG pCO2 POC ABG pO2 ABG pO2 ABG HCO3 ABG Base Excess ABG Hemoglobin ABG Oxyhemoglobin ABG Sodium ABG Potassium ABG Glucose Oxyhemoglobin Carboxyhemoglobin Sodium Potassium Chloride Carbon Dioxide BUN Creatinine Glucose POC Glucose 386 H 418 H 431 H Hemoglobin A1c Lactic Acid Calcium Total Bilirubin AST ALT Lactate Dehydrogenase C-Reactive Protein NT-Pro-B Natriuret Pep Total Protein Albumin Triglycerides Arterial Blood Glucose Arterial Blood Ionized Calcium Urine Creatinine Random Vancomycin Coronavirus (PCR) SARS-CoV-2 IgG Ab 03/12/20 03/12/20 03/12/20 11:34 16:53 22:20 WBC RBC Hgb Hct MCH MCHC RDW Lymph % (Auto) [place] % (Auto) Lymph # (Auto) [place] # (Auto) Seg Neutrophils % Seg Neutrophils # APTT D-Dimer Heparin Anti-Xa Level ABG pH POC ABG pCO2 POC ABG pO2 ABG pO2 ABG HCO3 ABG Base Excess ABG Hemoglobin ABG Oxyhemoglobin ABG Sodium ABG Potassium ABG Glucose Oxyhemoglobin Carboxyhemoglobin Sodium Potassium Chloride Carbon Dioxide BUN Creatinine Glucose POC Glucose 310 H 358 H 295 H Hemoglobin A1c Lactic Acid Calcium Total Bilirubin AST ALT Lactate Dehydrogenase C-Reactive Protein NT-Pro-B Natriuret Pep Total Protein Albumin Triglycerides Arterial Blood Glucose Arterial Blood Ionized Calcium Urine Creatinine Random Vancomycin Coronavirus (PCR) SARS-CoV-2 IgG Ab 03/13/20 03/13/20 03/13/20 05:48 09:15 12:09 WBC 18.3 H RBC Hgb Hct MCH 24 L MCHC 29 L RDW 18.9 H Lymph % (Auto) 7.8 L [place] % (Auto) 9.7 H Lymph # (Auto) [place] # (Auto) 1.8 H Seg Neutrophils % 82.0 H Seg Neutrophils # 15.0 H APTT D-Dimer Heparin Anti-Xa Level ABG pH 7.327 L POC ABG pCO2 POC ABG pO2 ABG pO2 73.0 L ABG HCO3 39.3 H ABG Base Excess 10.8 H ABG Hemoglobin 11.2 L ABG Oxyhemoglobin ABG Sodium ABG Potassium ABG Glucose Oxyhemoglobin 93.4 L Carboxyhemoglobin Sodium Potassium Chloride Carbon Dioxide BUN Creatinine Glucose POC Glucose 216 H Hemoglobin A1c Lactic Acid Calcium Total Bilirubin AST ALT Lactate Dehydrogenase C-Reactive Protein NT-Pro-B Natriuret Pep Total Protein Albumin Triglycerides Arterial Blood Glucose Arterial Blood Ionized Calcium Urine Creatinine Random Vancomycin Coronavirus (PCR) SARS-CoV-2 IgG Ab 03/13/20 03/13/20 03/13/20 12:09 12:11 17:23 WBC RBC Hgb Hct MCH MCHC RDW Lymph % (Auto) [place] % (Auto) Lymph # (Auto) [place] # (Auto) Seg Neutrophils % Seg Neutrophils # APTT D-Dimer Heparin Anti-Xa Level ABG pH POC ABG pCO2 POC ABG pO2 ABG pO2 ABG HCO3 ABG Base Excess ABG Hemoglobin ABG Oxyhemoglobin ABG Sodium ABG Potassium ABG Glucose Oxyhemoglobin Carboxyhemoglobin Sodium Potassium 5.1 H Chloride Carbon Dioxide 37 H D BUN Creatinine Glucose 154 H POC Glucose 148 H 217 H Hemoglobin A1c Lactic Acid Calcium Total Bilirubin AST 47 H ALT 128 H Lactate Dehydrogenase C-Reactive Protein NT-Pro-B Natriuret Pep Total Protein 5.9 L Albumin 3.0 L Triglycerides Arterial Blood Glucose Arterial Blood Ionized Calcium Urine Creatinine Random Vancomycin Coronavirus (PCR) SARS-CoV-2 IgG Ab 03/14/20 03/14/20 03/14/20 06:15 06:55 09:17 WBC 14.9 H RBC Hgb Hct MCH 25 L MCHC RDW 19.1 H Lymph % (Auto) 9.5 L [place] % (Auto) Lymph # (Auto) [place] # (Auto) 0.9 H Seg Neutrophils % 83.8 H Seg Neutrophils # 12.5 H APTT D-Dimer Heparin Anti-Xa Level ABG pH 7.544 H POC ABG pCO2 POC ABG pO2 ABG pO2 92.8 H ABG HCO3 37.3 H ABG Base Excess 13.5 H ABG Hemoglobin 10.5 L ABG Oxyhemoglobin ABG Sodium ABG Potassium ABG Glucose Oxyhemoglobin Carboxyhemoglobin Sodium Potassium Chloride Carbon Dioxide BUN Creatinine Glucose POC Glucose 182 H Hemoglobin A1c Lactic Acid Calcium Total Bilirubin AST ALT Lactate Dehydrogenase C-Reactive Protein NT-Pro-B Natriuret Pep Total Protein Albumin Triglycerides Arterial Blood Glucose Arterial Blood Ionized Calcium Urine Creatinine Random Vancomycin Coronavirus (PCR) SARS-CoV-2 IgG Ab 03/14/20 03/14/20 03/14/20 09:17 11:43 17:47 WBC RBC Hgb Hct MCH MCHC RDW Lymph % (Auto) [place] % (Auto) Lymph # (Auto) [place] # (Auto) Seg Neutrophils % Seg Neutrophils # APTT D-Dimer Heparin Anti-Xa Level ABG pH POC ABG pCO2 POC ABG pO2 ABG pO2 ABG HCO3 ABG Base Excess ABG Hemoglobin ABG Oxyhemoglobin ABG Sodium ABG Potassium ABG Glucose Oxyhemoglobin Carboxyhemoglobin Sodium Potassium Chloride Carbon Dioxide 34 H BUN Creatinine 0.5 L Glucose 204 H POC Glucose 283 H 254 H Hemoglobin A1c Lactic Acid Calcium Total Bilirubin 2.60 H AST 82 H ALT 152 H Lactate Dehydrogenase C-Reactive Protein NT-Pro-B Natriuret Pep Total Protein 5.7 L Albumin 3.0 L Triglycerides Arterial Blood Glucose Arterial Blood Ionized Calcium Urine Creatinine Random Vancomycin Coronavirus (PCR) SARS-CoV-2 IgG Ab 03/14/20 03/15/20 03/15/20 23:59 03:08 05:52 WBC RBC Hgb Hct MCH MCHC RDW Lymph % (Auto) [place] % (Auto) Lymph # (Auto) [place] # (Auto) Seg Neutrophils % Seg Neutrophils # APTT D-Dimer Heparin Anti-Xa Level ABG pH 7.536 H POC ABG pCO2 POC ABG pO2 ABG pO2 ABG HCO3 ABG Base Excess ABG Hemoglobin 10.7 L ABG Oxyhemoglobin ABG Sodium 135.2 L ABG Potassium ABG Glucose 317 H Oxyhemoglobin Carboxyhemoglobin Sodium Potassium Chloride Carbon Dioxide BUN Creatinine Glucose POC Glucose 293 H 293 H Hemoglobin A1c Lactic Acid Calcium Total Bilirubin AST ALT Lactate Dehydrogenase C-Reactive Protein NT-Pro-B Natriuret Pep Total Protein Albumin Triglycerides Arterial Blood Glucose 317 H Arterial Blood Ionized Calcium 4.5 L Urine Creatinine Random Vancomycin Coronavirus (PCR) SARS-CoV-2 IgG Ab 03/15/20 03/15/20 03/15/20 13:29 17:43 23:26 WBC RBC Hgb Hct MCH MCHC RDW Lymph % (Auto) [place] % (Auto) Lymph # (Auto) [place] # (Auto) Seg Neutrophils % Seg Neutrophils # APTT D-Dimer Heparin Anti-Xa Level ABG pH POC ABG pCO2 POC ABG pO2 ABG pO2 ABG HCO3 ABG Base Excess ABG Hemoglobin ABG Oxyhemoglobin ABG Sodium ABG Potassium ABG Glucose Oxyhemoglobin Carboxyhemoglobin Sodium Potassium Chloride Carbon Dioxide BUN Creatinine Glucose POC Glucose 299 H 327 H 325 H Hemoglobin A1c Lactic Acid Calcium Total Bilirubin AST ALT Lactate Dehydrogenase C-Reactive Protein NT-Pro-B Natriuret Pep Total Protein Albumin Triglycerides Arterial Blood Glucose Arterial Blood Ionized Calcium Urine Creatinine Random Vancomycin Coronavirus (PCR) SARS-CoV-2 IgG Ab 03/16/20 03/16/20 03/16/20 01:28 04:44 05:26 WBC RBC Hgb Hct MCH MCHC RDW Lymph % (Auto) [place] % (Auto) Lymph # (Auto) [place] # (Auto) Seg Neutrophils % Seg Neutrophils # APTT D-Dimer Heparin Anti-Xa Level ABG pH 7.540 H POC ABG pCO2 POC ABG pO2 ABG pO2 ABG HCO3 ABG Base Excess ABG Hemoglobin 10.5 L ABG Oxyhemoglobin ABG Sodium ABG Potassium ABG Glucose 312 H Oxyhemoglobin Carboxyhemoglobin Sodium Potassium Chloride Carbon Dioxide BUN 18 H Creatinine Glucose 330 H POC Glucose 264 H Hemoglobin A1c Lactic Acid Calcium Total Bilirubin AST ALT Lactate Dehydrogenase C-Reactive Protein NT-Pro-B Natriuret Pep Total Protein Albumin Triglycerides Arterial Blood Glucose 312 H Arterial Blood Ionized Calcium Urine Creatinine Random Vancomycin Coronavirus (PCR) SARS-CoV-2 IgG Ab 03/16/20 03/16/20 03/16/20 11:58 17:51 17:54 WBC RBC Hgb Hct MCH MCHC RDW Lymph % (Auto) [place] % (Auto) Lymph # (Auto) [place] # (Auto) Seg Neutrophils % Seg Neutrophils # APTT D-Dimer Heparin Anti-Xa Level ABG pH POC ABG pCO2 58.9 H POC ABG pO2 142.4 H ABG pO2 ABG HCO3 ABG Base Excess ABG Hemoglobin 11.6 L ABG Oxyhemoglobin ABG Sodium 135.9 L ABG Potassium 4.9 H ABG Glucose 332 H Oxyhemoglobin Carboxyhemoglobin Sodium Potassium Chloride Carbon Dioxide BUN Creatinine Glucose POC Glucose 196 H 285 H Hemoglobin A1c Lactic Acid Calcium Total Bilirubin AST ALT Lactate Dehydrogenase C-Reactive Protein NT-Pro-B Natriuret Pep Total Protein Albumin Triglycerides Arterial Blood Glucose 332 H Arterial Blood Ionized Calcium Urine Creatinine Random Vancomycin Coronavirus (PCR) SARS-CoV-2 IgG Ab 12/05/0503/16/20 03/17/20 17:56 23:43 03:13 WBC RBC Hgb Hct MCH MCHC RDW Lymph % (Auto) [place] % (Auto) Lymph # (Auto) [place] # (Auto) Seg Neutrophils % Seg Neutrophils # APTT D-Dimer Heparin Anti-Xa Level ABG pH POC ABG pCO2 POC ABG pO2 ABG pO2 ABG HCO3 ABG Base Excess ABG Hemoglobin ABG Oxyhemoglobin ABG Sodium ABG Potassium ABG Glucose Oxyhemoglobin Carboxyhemoglobin Sodium Potassium Chloride Carbon Dioxide BUN Creatinine Glucose POC Glucose 258 H Hemoglobin A1c Lactic Acid Calcium Total Bilirubin AST ALT Lactate Dehydrogenase C-Reactive Protein NT-Pro-B Natriuret Pep Total Protein Albumin Triglycerides 252 H Arterial Blood Glucose Arterial Blood Ionized Calcium Urine Creatinine Random Vancomycin Coronavirus (PCR) SARS-CoV-2 IgG Ab Reactive A 03/17/20 03/17/20 03/17/20 05:33 11:12 11:55 WBC RBC Hgb 9.2 L Hct 29.7 L MCH 25 L MCHC RDW 19.9 H Lymph % (Auto) [place] % (Auto) Lymph # (Auto) [place] # (Auto) Seg Neutrophils % Seg Neutrophils # APTT D-Dimer Heparin Anti-Xa Level ABG pH POC ABG pCO2 POC ABG pO2 ABG pO2 ABG HCO3 ABG Base Excess ABG Hemoglobin ABG Oxyhemoglobin ABG Sodium ABG Potassium ABG Glucose Oxyhemoglobin Carboxyhemoglobin Sodium Potassium Chloride Carbon Dioxide BUN Creatinine Glucose POC Glucose 157 H 112 H Hemoglobin A1c Lactic Acid Calcium Total Bilirubin AST ALT Lactate Dehydrogenase C-Reactive Protein NT-Pro-B Natriuret Pep Total Protein Albumin Triglycerides Arterial Blood Glucose Arterial Blood Ionized Calcium Urine Creatinine Random Vancomycin Coronavirus (PCR) SARS-CoV-2 IgG Ab 03/17/20 03/17/20 03/17/20 11:55 11:55 17:20 WBC RBC Hgb Hct MCH MCHC RDW Lymph % (Auto) [place] % (Auto) Lymph # (Auto) [place] # (Auto) Seg Neutrophils % Seg Neutrophils # APTT D-Dimer Heparin Anti-Xa Level ABG pH POC ABG pCO2 POC ABG pO2 ABG pO2 ABG HCO3 ABG Base Excess ABG Hemoglobin 10.2 L ABG Oxyhemoglobin ABG Sodium ABG Potassium ABG Glucose 137 H Oxyhemoglobin Carboxyhemoglobin Sodium Potassium Chloride Carbon Dioxide BUN 21 H Creatinine 0.5 L Glucose 118 H POC Glucose 178 H Hemoglobin A1c Lactic Acid Calcium Total Bilirubin AST ALT Lactate Dehydrogenase C-Reactive Protein NT-Pro-B Natriuret Pep Total Protein Albumin Triglycerides Arterial Blood Glucose 137 H Arterial Blood Ionized Calcium Urine Creatinine Random Vancomycin Coronavirus (PCR) SARS-CoV-2 IgG Ab 03/18/20 03/18/20 03/18/20 00:16 03:33 05:48 WBC RBC Hgb Hct MCH MCHC RDW Lymph % (Auto) [place] % (Auto) Lymph # (Auto) [place] # (Auto) Seg Neutrophils % Seg Neutrophils # APTT D-Dimer Heparin Anti-Xa Level ABG pH 7.568 H POC ABG pCO2 30.6 L POC ABG pO2 167.6 H ABG pO2 ABG HCO3 ABG Base Excess ABG Hemoglobin 10.9 L ABG Oxyhemoglobin ABG Sodium 133.8 L ABG Potassium ABG Glucose 125 H Oxyhemoglobin Carboxyhemoglobin Sodium Potassium Chloride Carbon Dioxide BUN Creatinine Glucose POC Glucose 119 H 114 H Hemoglobin A1c Lactic Acid Calcium Total Bilirubin AST ALT Lactate Dehydrogenase C-Reactive Protein NT-Pro-B Natriuret Pep Total Protein Albumin Triglycerides Arterial Blood Glucose 125 H Arterial Blood Ionized Calcium Urine Creatinine Random Vancomycin Coronavirus (PCR) SARS-CoV-2 IgG Ab 03/18/20 03/18/20 03/18/20 11:46 17:11 23:18 WBC RBC Hgb Hct MCH MCHC RDW Lymph % (Auto) [place] % (Auto) Lymph # (Auto) [place] # (Auto) Seg Neutrophils % Seg Neutrophils # APTT D-Dimer Heparin Anti-Xa Level ABG pH POC ABG pCO2 POC ABG pO2 ABG pO2 ABG HCO3 ABG Base Excess ABG Hemoglobin ABG Oxyhemoglobin ABG Sodium ABG Potassium ABG Glucose Oxyhemoglobin Carboxyhemoglobin Sodium Potassium Chloride Carbon Dioxide BUN Creatinine Glucose POC Glucose 165 H 155 H 142 H Hemoglobin A1c Lactic Acid Calcium Total Bilirubin AST ALT Lactate Dehydrogenase C-Reactive Protein NT-Pro-B Natriuret Pep Total Protein Albumin Triglycerides Arterial Blood Glucose Arterial Blood Ionized Calcium Urine Creatinine Random Vancomycin Coronavirus (PCR) SARS-CoV-2 IgG Ab 03/19/20 03/19/20 03/19/20 04:41 05:03 10:47 WBC RBC Hgb Hct MCH MCHC RDW Lymph % (Auto) [place] % (Auto) Lymph # (Auto) [place] # (Auto) Seg Neutrophils % Seg Neutrophils # APTT D-Dimer Heparin Anti-Xa Level ABG pH 7.041 L 7.231 L POC ABG pCO2 100.4 H 67.5 H POC ABG pO2 142.4 H ABG pO2 ABG HCO3 ABG Base Excess ABG Hemoglobin 11.2 L 9.7 L ABG Oxyhemoglobin ABG Sodium 135.8 L 134.8 L ABG Potassium 5.3 H 4.8 H ABG Glucose 150 H 160 H Oxyhemoglobin Carboxyhemoglobin 1.6 H Sodium Potassium Chloride Carbon Dioxide BUN Creatinine Glucose POC Glucose 123 H Hemoglobin A1c Lactic Acid Calcium Total Bilirubin AST ALT Lactate Dehydrogenase C-Reactive Protein NT-Pro-B Natriuret Pep Total Protein Albumin Triglycerides Arterial Blood Glucose 150 H 160 H Arterial Blood Ionized Calcium Urine Creatinine Random Vancomycin Coronavirus (PCR) SARS-CoV-2 IgG Ab 03/19/20 03/19/20 03/19/20 11:41 14:00 14:00 WBC RBC Hgb 10.0 L Hct MCH 26 L MCHC RDW 20.5 H Lymph % (Auto) [place] % (Auto) Lymph # (Auto) [place] # (Auto) Seg Neutrophils % Seg Neutrophils # APTT 22.4 L D-Dimer Heparin Anti-Xa Level ABG pH POC ABG pCO2 POC ABG pO2 ABG pO2 ABG HCO3 ABG Base Excess ABG Hemoglobin ABG Oxyhemoglobin ABG Sodium ABG Potassium ABG Glucose Oxyhemoglobin Carboxyhemoglobin Sodium Potassium Chloride Carbon Dioxide BUN Creatinine Glucose POC Glucose 153 H Hemoglobin A1c Lactic Acid Calcium Total Bilirubin AST ALT Lactate Dehydrogenase C-Reactive Protein NT-Pro-B Natriuret Pep Total Protein Albumin Triglycerides Arterial Blood Glucose Arterial Blood Ionized Calcium Urine Creatinine Random Vancomycin Coronavirus (PCR) SARS-CoV-2 IgG Ab 03/19/20 03/19/20 03/19/20 14:00 14:40 21:29 WBC RBC Hgb Hct MCH MCHC RDW Lymph % (Auto) [place] % (Auto) Lymph # (Auto) [place] # (Auto) Seg Neutrophils % Seg Neutrophils # APTT D-Dimer Heparin Anti-Xa Level ABG pH 7.168 L POC ABG pCO2 79.0 H POC ABG pO2 56.5 L 61.2 L ABG pO2 ABG HCO3 ABG Base Excess ABG Hemoglobin 10.8 L 10.0 L ABG Oxyhemoglobin 82.6 L 89.5 L ABG Sodium 135.6 L ABG Potassium ABG Glucose 214 H 99 H Oxyhemoglobin Carboxyhemoglobin 2.0 H Sodium Potassium Chloride Carbon Dioxide BUN 42 H Creatinine 2.5 H D Glucose 235 H POC Glucose Hemoglobin A1c Lactic Acid Calcium Total Bilirubin AST ALT Lactate Dehydrogenase C-Reactive Protein NT-Pro-B Natriuret Pep Total Protein Albumin Triglycerides Arterial Blood Glucose 214 H 99 H Arterial Blood Ionized Calcium Urine Creatinine Random Vancomycin Coronavirus (PCR) SARS-CoV-2 IgG Ab 03/19/20 03/20/20 03/20/20 21:56 05:00 05:00 WBC RBC Hgb Hct MCH MCHC RDW Lymph % (Auto) [place] % (Auto) Lymph # (Auto) [place] # (Auto) Seg Neutrophils % Seg Neutrophils # APTT D-Dimer Heparin Anti-Xa Level 0.26 L ABG pH POC ABG pCO2 POC ABG pO2 ABG pO2 ABG HCO3 ABG Base Excess ABG Hemoglobin ABG Oxyhemoglobin ABG Sodium ABG Potassium ABG Glucose Oxyhemoglobin Carboxyhemoglobin Sodium Potassium Chloride Carbon Dioxide BUN 48 H Creatinine 2.2 H Glucose 138 H POC Glucose Hemoglobin A1c Lactic Acid Calcium Total Bilirubin AST ALT Lactate Dehydrogenase C-Reactive Protein NT-Pro-B Natriuret Pep Total Protein Albumin Triglycerides Arterial Blood Glucose Arterial Blood Ionized Calcium Urine Creatinine Random Vancomycin 54.2 H Coronavirus (PCR) SARS-CoV-2 IgG Ab 03/20/20 03/20/20 03/20/20 05:16 07:15 11:52 WBC RBC Hgb Hct MCH MCHC RDW Lymph % (Auto) [place] % (Auto) Lymph # (Auto) [place] # (Auto) Seg Neutrophils % Seg Neutrophils # APTT D-Dimer Heparin Anti-Xa Level 0.10 L ABG pH POC ABG pCO2 POC ABG pO2 ABG pO2 ABG HCO3 ABG Base Excess ABG Hemoglobin ABG Oxyhemoglobin ABG Sodium ABG Potassium ABG Glucose Oxyhemoglobin Carboxyhemoglobin Sodium Potassium Chloride Carbon Dioxide BUN Creatinine Glucose POC Glucose 128 H 145 H Hemoglobin A1c Lactic Acid Calcium Total Bilirubin AST ALT Lactate Dehydrogenase C-Reactive Protein NT-Pro-B Natriuret Pep Total Protein Albumin Triglycerides Arterial Blood Glucose Arterial Blood Ionized Calcium Urine Creatinine Random Vancomycin Coronavirus (PCR) SARS-CoV-2 IgG Ab 03/20/20 03/20/20 03/20/20 13:44 14:55 17:04 WBC RBC Hgb Hct MCH MCHC RDW Lymph % (Auto) [place] % (Auto) Lymph # (Auto) [place] # (Auto) Seg Neutrophils % Seg Neutrophils # APTT D-Dimer Heparin Anti-Xa Level 0.79 H ABG pH POC ABG pCO2 POC ABG pO2 ABG pO2 ABG HCO3 ABG Base Excess ABG Hemoglobin ABG Oxyhemoglobin ABG Sodium ABG Potassium ABG Glucose Oxyhemoglobin Carboxyhemoglobin Sodium Potassium Chloride Carbon Dioxide BUN Creatinine Glucose POC Glucose 179 H Hemoglobin A1c Lactic Acid Calcium Total Bilirubin AST ALT Lactate Dehydrogenase C-Reactive Protein NT-Pro-B Natriuret Pep Total Protein Albumin Triglycerides Arterial Blood Glucose Arterial Blood Ionized Calcium Urine Creatinine 137.9 H Random Vancomycin Coronavirus (PCR) SARS-CoV-2 IgG Ab 03/20/20 03/21/20 03/21/20 23:23 05:29 08:37 WBC RBC Hgb Hct MCH MCHC RDW Lymph % (Auto) [place] % (Auto) Lymph # (Auto) [place] # (Auto) Seg Neutrophils % Seg Neutrophils # APTT D-Dimer Heparin Anti-Xa Level ABG pH POC ABG pCO2 POC ABG pO2 210.3 H ABG pO2 ABG HCO3 ABG Base Excess ABG Hemoglobin 9.5 L ABG Oxyhemoglobin ABG Sodium 132.1 L ABG Potassium ABG Glucose 179 H Oxyhemoglobin Carboxyhemoglobin Sodium Potassium Chloride Carbon Dioxide BUN Creatinine Glucose POC Glucose 168 H 157 H Hemoglobin A1c Lactic Acid Calcium Total Bilirubin AST ALT Lactate Dehydrogenase C-Reactive Protein NT-Pro-B Natriuret Pep Total Protein Albumin Triglycerides Arterial Blood Glucose 179 H Arterial Blood Ionized Calcium 4.5 L Urine Creatinine Random Vancomycin Coronavirus (PCR) SARS-CoV-2 IgG Ab 03/21/20 03/21/20 03/21/20 12:01 12:20 17:12 WBC RBC Hgb Hct MCH MCHC RDW Lymph % (Auto) [place] % (Auto) Lymph # (Auto) [place] # (Auto) Seg Neutrophils % Seg Neutrophils # APTT D-Dimer Heparin Anti-Xa Level ABG pH POC ABG pCO2 POC ABG pO2 ABG pO2 ABG HCO3 ABG Base Excess ABG Hemoglobin ABG Oxyhemoglobin ABG Sodium ABG Potassium ABG Glucose Oxyhemoglobin Carboxyhemoglobin Sodium 133 L Potassium Chloride Carbon Dioxide 19 L BUN 56 H Creatinine 2.3 H Glucose 157 H POC Glucose 171 H 215 H Hemoglobin A1c Lactic Acid Calcium 6.8 L D Total Bilirubin AST 54 H ALT 84 H Lactate Dehydrogenase C-Reactive Protein NT-Pro-B Natriuret Pep Total Protein 4.4 L Albumin 1.7 L Triglycerides Arterial Blood Glucose Arterial Blood Ionized Calcium Urine Creatinine Random Vancomycin Coronavirus (PCR) SARS-CoV-2 IgG Ab 03/21/20 03/22/20 03/22/20 23:14 00:42 02:57 WBC RBC Hgb 9.3 L Hct 30.2 L MCH MCHC RDW Lymph % (Auto) [place] % (Auto) Lymph # (Auto) [place] # (Auto) Seg Neutrophils % Seg Neutrophils # APTT D-Dimer Heparin Anti-Xa Level ABG pH POC ABG pCO2 POC ABG pO2 141.4 H ABG pO2 ABG HCO3 ABG Base Excess ABG Hemoglobin 9.4 L ABG Oxyhemoglobin ABG Sodium 132.3 L ABG Potassium 4.6 H ABG Glucose 217 H Oxyhemoglobin Carboxyhemoglobin Sodium Potassium Chloride Carbon Dioxide BUN Creatinine Glucose POC Glucose 191 H Hemoglobin A1c Lactic Acid Calcium Total Bilirubin AST ALT Lactate Dehydrogenase C-Reactive Protein NT-Pro-B Natriuret Pep Total Protein Albumin Triglycerides Arterial Blood Glucose 217 H Arterial Blood Ionized Calcium Urine Creatinine Random Vancomycin Coronavirus (PCR) SARS-CoV-2 IgG Ab 03/22/20 03/22/20 03/22/20 05:13 08:00 08:00 WBC RBC 3.34 L Hgb 8.4 L Hct 26.8 L MCH 25 L MCHC RDW 20.2 H Lymph % (Auto) 7.7 L [place] % (Auto) Lymph # (Auto) 0.7 L [place] # (Auto) Seg Neutrophils % 84.0 H Seg Neutrophils # 7.8 H APTT D-Dimer Heparin Anti-Xa Level ABG pH POC ABG pCO2 POC ABG pO2 ABG pO2 ABG HCO3 ABG Base Excess ABG Hemoglobin ABG Oxyhemoglobin ABG Sodium ABG Potassium ABG Glucose Oxyhemoglobin Carboxyhemoglobin Sodium 134 L Potassium Chloride Carbon Dioxide BUN 64 H Creatinine 2.3 H Glucose 207 H POC Glucose 201 H Hemoglobin A1c Lactic Acid Calcium Total Bilirubin AST ALT Lactate Dehydrogenase C-Reactive Protein NT-Pro-B Natriuret Pep Total Protein Albumin Triglycerides Arterial Blood Glucose Arterial Blood Ionized Calcium Urine Creatinine Random Vancomycin Coronavirus (PCR) SARS-CoV-2 IgG Ab Allied health notes reviewed: nursing
--- NOTE | 2020-03-22 11:42 | Consultation ---
History of Present Illness Consult date: 03/22/20 Reason for Consult: Brain Herniation Chief complaint: AMS History of present illness: 29 yo female with hypertension, dm, asthma, morbid obesity, presented with a hx of COVID-19 and noted with shortness of breath 2 days prior to admission. During this hospitalization, the patient suffered a cardiac arrest w/ a ROSC of 13 minutes. The patient has remained encephalopathic w/ no noted clinical seizure activity (per RN). 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 Patient is awaiting a second repeat NCHCT at present, for comparison. Past History Past Medical History: diabetes, hypertension, hyperlipidemia, other (History of recent Covid infection) Past Surgical History: No surgical history Social history: full code. denies: smoking, alcohol abuse, prescription drug abuse Family history: hypertension Medications and Allergies Allergies Allergy/AdvReac Type Severity Reaction Status Date / Time lorazepam [From Ativan] AdvReac Unknown Verified 03/09/20 07:27 naloxone [From Narcan] AdvReac Unknown Verified 03/09/20 07:28 Home Medications Medication Instructions Recorded Confirmed Last Taken Type Citalopram Hydrobromide 20 mg PO QHS 03/09/20 03/09/20 Unknown History [Citalopram HBr] Divalproex ER [DepaKOTE ER] 1,000 mg PO QHS 03/09/20 03/09/20 Unknown History Furosemide [Lasix] 20 mg PO QDAY 03/09/20 03/09/20 Unknown History Losartan [Cozaar] 100 mg PO QDAY 03/09/20 03/09/20 Unknown History NIFEdipine [Nifedipine ER] 60 mg PO QDAY 03/09/20 03/09/20 Unknown History carvediloL [Coreg] 6.25 mg PO BID 03/09/20 03/09/20 Unknown History hydrOXYzine HCL [Atarax] 10 mg PO QHS 03/09/20 03/09/20 Unknown History risperiDONE [RisperDAL] 0.5 mg PO BID 03/09/20 03/09/20 Unknown History Active Meds: Active Medications Acetaminophen (Tylenol) 650 mg FEEDTUBE Q6H PRN PRN Reason: Pain, Mild (1-3) Last Admin: 03/14/20 09:36 Dose: 650 mg Documented by: Lipase/Protease/Amylase (Pancreaze Dr 10,500 Unit) 1 each FEEDTUBE PRN PRN PRN Reason: For Clogged Feeding Tube Fentanyl (Sublimaze) 50 mcg IV Q10MIN PRN PRN Reason: ANALGESIA Last Admin: 03/17/20 20:23 Dose: 50 mcg Documented by: Furosemide (Lasix) 40 mg IV 0600,1800 KIM Last Admin: 03/22/20 06:12 Dose: 40 mg Documented by: Glycopyrrolate (Glycopyrrolate) 1 mg PO TID KIM Last Admin: 03/22/20 10:01 Dose: 1 mg Documented by: Hydralazine HCl (Apresoline) 10 mg IV Q4HR PRN PRN Reason: Hypertension Hydrophilic Ointment (Vaseline Lip Therapy) 1 applic TP Q2HR PRN PRN Reason: Dry Lips Fentanyl Citrate (Fentanyl Drip Premix) 2,000 mcg in 100 mls @ 8.27 mls/hr IV TITR KIM; Protocol Last Admin: 03/22/20 06:15 Dose: 4 mcg/kg/hr, 33.08 mls/hr Documented by: Heparin Sodium/Sodium Chloride (Heparin/ 0.45% Nacl-25,000 Unit/500 Ml) 25,000 unit in 500 mls @ 30 mls/hr IV TITR KIM; Protocol Last Admin: 03/21/20 21:26 Dose: 1,850 units/hr, 37 mls/hr Documented by: Norepinephrine (Levophed Drip 4 Mg/Ns 250 Ml) 4 mg in 250 mls @ 7.5 mls/hr IV TITR KIM; Protocol Last Titration: 03/22/20 06:43 Dose: 2 mcg/min, 7.5 mls/hr Documented by: Propofol (Diprivan 10 Mg/Ml) 1,000 mg in 100 mls @ 4.962 mls/hr IV TITR KIM; Protocol Last Titration: 03/21/20 18:50 Dose: 5 mcg/kg/min, 4.962 mls/hr Documented by: Vasopressin 20 unit/ Sodium (Chloride) 101 mls @ 9.09 mls/hr IV TITR KIM; Prot ocol Last Titration: 03/22/20 01:36 Dose: 0 units/min, 0 mls/hr Documented by: Insulin Glargine (Lantus) 35 units SUB-Q QHS COUNTS INCLUDE 234 BEDS AT THE [facility] Last Admin: 03/21/20 21:54 Dose: 35 units Documented by: Insulin Human Lispro (Humalog) 0 unit SUB-Q Q6H COUNTS INCLUDE 234 BEDS AT THE [facility]; Protocol Last Admin: 03/22/20 06:12 Dose: 4 unit Documented by: Lansoprazole (Prevacid Solutab) 30 mg FEEDTUBE QDAY COUNTS INCLUDE 234 BEDS AT THE [facility] Last Admin: 03/22/20 10:01 Dose: 30 mg Documented by: Multi-Ingred Cream/Lotion/Oil/Oint (Artificial Tears Ophth Oint) 1 applic OU Q4HR PRN PRN Reason: Dry Eye(s) Oxycodone/Acetaminophen (Percocet 5/325) 1 tab PO Q6H PRN PRN Reason: Pain, Moderate (4-6) Polyethylene Glycol (Miralax 3350) 17 gm PO QDAY COUNTS INCLUDE 234 BEDS AT THE [facility] Last Admin: 03/22/20 10:01 Dose: 17 gm Documented by: Quetiapine Fumarate (Seroquel) 150 mg PO BID COUNTS INCLUDE 234 BEDS AT THE [facility] Last Admin: 03/21/20 21:25 Dose: 150 mg Documented by: Scopolamine (Transderm-Scop) 1 each TD Q3D COUNTS INCLUDE 234 BEDS AT THE [facility] Last Admin: 03/22/20 10:01 Dose: 1 each Documented by: Senna/Docusate Sodium (Senokot S) 2 tab PO BID COUNTS INCLUDE 234 BEDS AT THE [facility] Last Admin: 03/22/20 10:01 Dose: 2 tab Documented by: Simple Syrup (Simple Syrup) 15 ml FEEDTUBE PRN PRN PRN Reason: Hypoglycemia Simple Syrup (Simple Syrup) 30 ml FEEDTUBE PRN PRN PRN Reason: Hypoglycemia Sodium Bicarbonate (Sodium Bicarbonate) 325 mg FEEDTUBE PRN PRN PRN Reason: For Clogged Feeding Tube Review of Systems ROS unobtainable: due to mental status Physical Examination - Vital Signs Vital Signs: Vital Signs BP Pulse Ox 170/102 96 03/09/20 07:31 03/09/20 07:31 - Additional Exam Additional Exam: Patient was not seen at the bedside. Results - Laboratory Findings CBC and BMP: 03/22/20 08:00 03/22/20 08:00 Abnormal Lab Findings: Abnormal Labs 03/09/20 03/09/20 03/09/20 08:27 08:27 08:27 WBC 15.8 H RBC 5.43 H Hgb Hct MCH 24 L MCHC RDW 19.3 H Lymph % (Auto) Wirt % (Auto) 8.2 H Lymph # (Auto) Wirt # (Auto) 1.3 H Seg Neutrophils % 70.4 H Seg Neutrophils # 11.1 H APTT D-Dimer Heparin Anti-Xa Level ABG pH POC ABG pCO2 POC ABG pO2 ABG pO2 ABG HCO3 ABG Base Excess ABG Hemoglobin ABG Oxyhemoglobin ABG Sodium ABG Potassium ABG Glucose Oxyhemoglobin Carboxyhemoglobin Sodium Potassium Chloride 97.1 L Carbon Dioxide BUN 29 H Creatinine Glucose 178 H POC Glucose Hemoglobin A1c Lactic Acid 3.70 H* Calcium Total Bilirubin AST ALT Lactate Dehydrogenase 369 H C-Reactive Protein 3.00 H NT-Pro-B Natriuret Pep Total Protein Albumin Triglycerides Arterial Blood Glucose Arterial Blood Ionized Calcium Urine Creatinine Random Vancomycin Coronavirus (PCR) SARS-CoV-2 IgG Ab 03/09/20 03/09/20 03/09/20 08:27 08:27 08:27 WBC RBC Hgb Hct MCH MCHC RDW Lymph % (Auto) Wirt % (Auto) Lymph # (Auto) Wirt # (Auto) Seg Neutrophils % Seg Neutrophils # APTT D-Dimer 1042.81 H Heparin Anti-Xa Level ABG pH POC ABG pCO2 POC ABG pO2 ABG pO2 ABG HCO3 ABG Base Excess ABG Hemoglobin ABG Oxyhemoglobin ABG Sodium ABG Potassium ABG Glucose Oxyhemoglobin Carboxyhemoglobin Sodium Potassium Chloride Carbon Dioxide BUN Creatinine Glucose POC Glucose Hemoglobin A1c 8.0 H Lactic Acid Calcium Total Bilirubin AST ALT Lactate Dehydrogenase C-Reactive Protein NT-Pro-B Natriuret Pep 2914 H Total Protein Albumin Triglycerides Arterial Blood Glucose Arterial Blood Ionized Calcium Urine Creatinine Random Vancomycin Coronavirus (PCR) SARS-CoV-2 IgG Ab 03/09/20 03/09/20 03/10/20 08:43 23:04 05:23 WBC RBC Hgb Hct MCH MCHC RDW Lymph % (Auto) Wirt % (Auto) Lymph # (Auto) Wirt # (Auto) Seg Neutrophils % Seg Neutrophils # APTT D-Dimer Heparin Anti-Xa Level ABG pH POC ABG pCO2 POC ABG pO2 ABG pO2 ABG HCO3 ABG Base Excess ABG Hemoglobin ABG Oxyhemoglobin ABG Sodium ABG Potassium ABG Glucose Oxyhemoglobin Carboxyhemoglobin Sodium Potassium Chloride Carbon Dioxide BUN Creatinine Glucose POC Glucose 361 H Hemoglobin A1c Lactic Acid 6.80 H* Calcium Total Bilirubin AST ALT Lactate Dehydrogenase C-Reactive Protein NT-Pro-B Natriuret Pep Total Protein Albumin Triglycerides Arterial Blood Glucose Arterial Blood Ionized Calcium Urine Creatinine Random Vancomycin Coronavirus (PCR) Positive A SARS-CoV-2 IgG Ab 03/10/20 03/10/20 03/10/20 08:19 10:49 17:11 WBC RBC Hgb Hct MCH MCHC RDW Lymph % (Auto) Wirt % (Auto) Lymph # (Auto) Wirt # (Auto) Seg Neutrophils % Seg Neutrophils # APTT D-Dimer Heparin Anti-Xa Level ABG pH POC ABG pCO2 POC ABG pO2 ABG pO2 ABG HCO3 ABG Base Excess ABG Hemoglobin ABG Oxyhemoglobin ABG Sodium ABG Potassium ABG Glucose Oxyhemoglobin Carboxyhemoglobin Sodium Potassium Chloride Carbon Dioxide BUN Creatinine Glucose POC Glucose 371 H 423 H 373 H Hemoglobin A1c Lactic Acid Calcium Total Bilirubin AST ALT Lactate Dehydrogenase C-Reactive Protein NT-Pro-B Natriuret Pep Total Protein Albumin Triglycerides Arterial Blood Glucose Arterial Blood Ionized Calcium Urine Creatinine Random Vancomycin Coronavirus (PCR) SARS-CoV-2 IgG Ab 03/11/20 03/11/20 03/11/20 00:29 07:52 13:12 WBC RBC Hgb Hct MCH MCHC RDW Lymph % (Auto) Wirt % (Auto) Lymph # (Auto) Wirt # (Auto) Seg Neutrophils % Seg Neutrophils # APTT D-Dimer Heparin Anti-Xa Level ABG pH POC ABG pCO2 POC ABG pO2 ABG pO2 ABG HCO3 ABG Base Excess ABG Hemoglobin ABG Oxyhemoglobin ABG Sodium ABG Potassium ABG Glucose Oxyhemoglobin Carboxyhemoglobin Sodium Potassium Chloride Carbon Dioxide BUN Creatinine Glucose POC Glucose 242 H 233 H 352 H Hemoglobin A1c Lactic Acid Calcium Total Bilirubin AST ALT Lactate Dehydrogenase C-Reactive Protein NT-Pro-B Natriuret Pep Total Protein Albumin Triglycerides Arterial Blood Glucose Arterial Blood Ionized Calcium Urine Creatinine Random Vancomycin Coronavirus (PCR) SARS-CoV-2 IgG Ab 03/11/20 03/11/20 03/12/20 15:24 22:54 08:22 WBC RBC Hgb Hct MCH MCHC RDW Lymph % (Auto) Wirt % (Auto) Lymph # (Auto) Wirt # (Auto) Seg Neutrophils % Seg Neutrophils # APTT D-Dimer Heparin Anti-Xa Level ABG pH POC ABG pCO2 POC ABG pO2 ABG pO2 ABG HCO3 ABG Base Excess ABG Hemoglobin ABG Oxyhemoglobin ABG Sodium ABG Potassium ABG Glucose Oxyhemoglobin Carboxyhemoglobin Sodium Potassium Chloride Carbon Dioxide BUN Creatinine Glucose POC Glucose 386 H 418 H 431 H Hemoglobin A1c Lactic Acid Calcium Total Bilirubin AST ALT Lactate Dehydrogenase C-Reactive Protein NT-Pro-B Natriuret Pep Total Protein Albumin Triglycerides Arterial Blood Glucose Arterial Blood Ionized Calcium Urine Creatinine Random Vancomycin Coronavirus (PCR) SARS-CoV-2 IgG Ab 03/12/20 03/12/20 03/12/20 11:34 16:53 22:20 WBC RBC Hgb Hct MCH MCHC RDW Lymph % (Auto) Wirt % (Auto) Lymph # (Auto) Wirt # (Auto) Seg Neutrophils % Seg Neutrophils # APTT D-Dimer Heparin Anti-Xa Level ABG pH POC ABG pCO2 POC ABG pO2 ABG pO2 ABG HCO3 ABG Base Excess ABG Hemoglobin ABG Oxyhemoglobin ABG Sodium ABG Potassium ABG Glucose Oxyhemoglobin Carboxyhemoglobin Sodium Potassium Chloride Carbon Dioxide BUN Creatinine Glucose POC Glucose 310 H 358 H 295 H Hemoglobin A1c Lactic Acid Calcium Total Bilirubin AST ALT Lactate Dehydrogenase C-Reactive Protein NT-Pro-B Natriuret Pep Total Protein Albumin Triglycerides Arterial Blood Glucose Arterial Blood Ionized Calcium Urine Creatinine Random Vancomycin Coronavirus (PCR) SARS-CoV-2 IgG Ab 03/13/20 03/13/20 03/13/20 05:48 09:15 12:09 WBC 18.3 H RBC Hgb Hct MCH 24 L MCHC 29 L RDW 18.9 H Lymph % (Auto) 7.8 L Wirt % (Auto) 9.7 H Lymph # (Auto) Wirt # (Auto) 1.8 H Seg Neutrophils % 82.0 H Seg Neutrophils # 15.0 H APTT D-Dimer Heparin Anti-Xa Level ABG pH 7.327 L POC ABG pCO2 POC ABG pO2 ABG pO2 73.0 L ABG HCO3 39.3 H ABG Base Excess 10.8 H ABG Hemoglobin 11.2 L ABG Oxyhemoglobin ABG Sodium ABG Potassium ABG Glucose Oxyhemoglobin 93.4 L Carboxyhemoglobin Sodium Potassium Chloride Carbon Dioxide BUN Creatinine Glucose POC Glucose 216 H Hemoglobin A1c Lactic Acid Calcium Total Bilirubin AST ALT Lactate Dehydrogenase C-Reactive Protein NT-Pro-B Natriuret Pep Total Protein Albumin Triglycerides Arterial Blood Glucose Arterial Blood Ionized Calcium Urine Creatinine Random Vancomycin Coronavirus (PCR) SARS-CoV-2 IgG Ab 03/13/20 03/13/20 03/13/20 12:09 12:11 17:23 WBC RBC Hgb Hct MCH MCHC RDW Lymph % (Auto) Wirt % (Auto) Lymph # (Auto) Wirt # (Auto) Seg Neutrophils % Seg Neutrophils # APTT D-Dimer Heparin Anti-Xa Level ABG pH POC ABG pCO2 POC ABG pO2 ABG pO2 ABG HCO3 ABG Base Excess ABG Hemoglobin ABG Oxyhemoglobin ABG Sodium ABG Potassium ABG Glucose Oxyhemoglobin Carboxyhemoglobin Sodium Potassium 5.1 H Chloride Carbon Dioxide 37 H D BUN Creatinine Glucose 154 H POC Glucose 148 H 217 H Hemoglobin A1c Lactic Acid Calcium Total Bilirubin AST 47 H ALT 128 H Lactate Dehydrogenase C-Reactive Protein NT-Pro-B Natriuret Pep Total Protein 5.9 L Albumin 3.0 L Triglycerides Arterial Blood Glucose Arterial Blood Ionized Calcium Urine Creatinine Random Vancomycin Coronavirus (PCR) SARS-CoV-2 IgG Ab 03/14/20 03/14/20 03/14/20 06:15 06:55 09:17 WBC 14.9 H RBC Hgb Hct MCH 25 L MCHC RDW 19.1 H Lymph % (Auto) 9.5 L Wirt % (Auto) Lymph # (Auto) Wirt # (Auto) 0.9 H Seg Neutrophils % 83.8 H Seg Neutrophils # 12.5 H APTT D-Dimer Heparin Anti-Xa Level ABG pH 7.544 H POC ABG pCO2 POC ABG pO2 ABG pO2 92.8 H ABG HCO3 37.3 H ABG Base Excess 13.5 H ABG Hemoglobin 10.5 L ABG Oxyhemoglobin ABG Sodium ABG Potassium ABG Glucose Oxyhemoglobin Carboxyhemoglobin Sodium Potassium Chloride Carbon Dioxide BUN Creatinine Glucose POC Glucose 182 H Hemoglobin A1c Lactic Acid Calcium Total Bilirubin AST ALT Lactate Dehydrogenase C-Reactive Protein NT-Pro-B Natriuret Pep Total Protein Albumin Triglycerides Arterial Blood Glucose Arterial Blood Ionized Calcium Urine Creatinine Random Vancomycin Coronavirus (PCR) SARS-CoV-2 IgG Ab 03/14/20 03/14/20 03/14/20 09:17 11:43 17:47 WBC RBC Hgb Hct MCH MCHC RDW Lymph % (Auto) Wirt % (Auto) Lymph # (Auto) Wirt # (Auto) Seg Neutrophils % Seg Neutrophils # APTT D-Dimer Heparin Anti-Xa Level ABG pH POC ABG pCO2 POC ABG pO2 ABG pO2 ABG HCO3 ABG Base Excess ABG Hemoglobin ABG Oxyhemoglobin ABG Sodium ABG Potassium ABG Glucose Oxyhemoglobin Carboxyhemoglobin Sodium Potassium Chloride Carbon Dioxide 34 H BUN Creatinine 0.5 L Glucose 204 H POC Glucose 283 H 254 H Hemoglobin A1c Lactic Acid Calcium Total Bilirubin 2.60 H AST 82 H ALT 152 H Lactate Dehydrogenase C-Reactive Protein NT-Pro-B Natriuret Pep Total Protein 5.7 L Albumin 3.0 L Triglycerides Arterial Blood Glucose Arterial Blood Ionized Calcium Urine Creatinine Random Vancomycin Coronavirus (PCR) SARS-CoV-2 IgG Ab 03/14/20 03/15/20 03/15/20 23:59 03:08 05:52 WBC RBC Hgb Hct MCH MCHC RDW Lymph % (Auto) Wirt % (Auto) Lymph # (Auto) Wirt # (Auto) Seg Neutrophils % Seg Neutrophils # APTT D-Dimer Heparin Anti-Xa Level ABG pH 7.536 H POC ABG pCO2 POC ABG pO2 ABG pO2 ABG HCO3 ABG Base Excess ABG Hemoglobin 10.7 L ABG Oxyhemoglobin ABG Sodium 135.2 L ABG Potassium ABG Glucose 317 H Oxyhemoglobin Carboxyhemoglobin Sodium Potassium Chloride Carbon Dioxide BUN Creatinine Glucose POC Glucose 293 H 293 H Hemoglobin A1c Lactic Acid Calcium Total Bilirubin AST ALT Lactate Dehydrogenase C-Reactive Protein NT-Pro-B Natriuret Pep Total Protein Albumin Triglycerides Arterial Blood Glucose 317 H Arterial Blood Ionized Calcium 4.5 L Urine Creatinine Random Vancomycin Coronavirus (PCR) SARS-CoV-2 IgG Ab 03/15/20 03/15/20 03/15/20 13:29 17:43 23:26 WBC RBC Hgb Hct MCH MCHC RDW Lymph % (Auto) Wirt % (Auto) Lymph # (Auto) Wirt # (Auto) Seg Neutrophils % Seg Neutrophils # APTT D-Dimer Heparin Anti-Xa Level ABG pH POC ABG pCO2 POC ABG pO2 ABG pO2 ABG HCO3 ABG Base Excess ABG Hemoglobin ABG Oxyhemoglobin ABG Sodium ABG Potassium ABG Glucose Oxyhemoglobin Carboxyhemoglobin Sodium Potassium Chloride Carbon Dioxide BUN Creatinine Glucose POC Glucose 299 H 327 H 325 H Hemoglobin A1c Lactic Acid Calcium Total Bilirubin AST ALT Lactate Dehydrogenase C-Reactive Protein NT-Pro-B Natriuret Pep Total Protein Albumin Triglycerides Arterial Blood Glucose Arterial Blood Ionized Calcium Urine Creatinine Random Vancomycin Coronavirus (PCR) SARS-CoV-2 IgG Ab 03/16/20 03/16/20 03/16/20 01:28 04:44 05:26 WBC RBC Hgb Hct MCH MCHC RDW Lymph % (Auto) Wirt % (Auto) Lymph # (Auto) Wirt # (Auto) Seg Neutrophils % Seg Neutrophils # APTT D-Dimer Heparin Anti-Xa Level ABG pH 7.540 H POC ABG pCO2 POC ABG pO2 ABG pO2 ABG HCO3 ABG Base Excess ABG Hemoglobin 10.5 L ABG Oxyhemoglobin ABG Sodium ABG Potassium ABG Glucose 312 H Oxyhemoglobin Carboxyhemoglobin Sodium Potassium Chloride Carbon Dioxide BUN 18 H Creatinine Glucose 330 H POC Glucose 264 H Hemoglobin A1c Lactic Acid Calcium Total Bilirubin AST ALT Lactate Dehydrogenase C-Reactive Protein NT-Pro-B Natriuret Pep Total Protein Albumin Triglycerides Arterial Blood Glucose 312 H Arterial Blood Ionized Calcium Urine Creatinine Random Vancomycin Coronavirus (PCR) SARS-CoV-2 IgG Ab 03/16/20 03/16/20 03/16/20 11:58 17:51 17:54 WBC RBC Hgb Hct MCH MCHC RDW Lymph % (Auto) Wirt % (Auto) Lymph # (Auto) Wirt # (Auto) Seg Neutrophils % Seg Neutrophils # APTT D-Dimer Heparin Anti-Xa Level ABG pH POC ABG pCO2 58.9 H POC ABG pO2 142.4 H ABG pO2 ABG HCO3 ABG Base Excess ABG Hemoglobin 11.6 L ABG Oxyhemoglobin ABG Sodium 135.9 L ABG Potassium 4.9 H ABG Glucose 332 H Oxyhemoglobin Carboxyhemoglobin Sodium Potassium Chloride Carbon Dioxide BUN Creatinine Glucose POC Glucose 196 H 285 H Hemoglobin A1c Lactic Acid Calcium Total Bilirubin AST ALT Lactate Dehydrogenase C-Reactive Protein NT-Pro-B Natriuret Pep Total Protein Albumin Triglycerides Arterial Blood Glucose 332 H Arterial Blood Ionized Calcium Urine Creatinine Random Vancomycin Coronavirus (PCR) SARS-CoV-2 IgG Ab 03/16/20 03/16/20 03/17/20 17:56 23:43 03:13 WBC RBC Hgb Hct MCH MCHC RDW Lymph % (Auto) Wirt % (Auto) Lymph # (Auto) Wirt # (Auto) Seg Neutrophils % Seg Neutrophils # APTT D-Dimer Heparin Anti-Xa Level ABG pH POC ABG pCO2 POC ABG pO2 ABG pO2 ABG HCO3 ABG Base Excess ABG Hemoglobin ABG Oxyhemoglobin ABG Sodium ABG Potassium ABG Glucose Oxyhemoglobin Carboxyhemoglobin Sodium Potassium Chloride Carbon Dioxide BUN Creatinine Glucose POC Glucose 258 H Hemoglobin A1c Lactic Acid Calcium Total Bilirubin AST ALT Lactate Dehydrogenase C-Reactive Protein NT-Pro-B Natriuret Pep Total Protein Albumin Triglycerides 252 H Arterial Blood Glucose Arterial Blood Ionized Calcium Urine Creatinine Random Vancomycin Coronavirus (PCR) SARS-CoV-2 IgG Ab Reactive A 03/17/20 03/17/20 03/17/20 05:33 11:12 11:55 WBC RBC Hgb 9.2 L Hct 29.7 L MCH 25 L MCHC RDW 19.9 H Lymph % (Auto) Wirt % (Auto) Lymph # (Auto) Wirt # (Auto) Seg Neutrophils % Seg Neutrophils # APTT D-Dimer Heparin Anti-Xa Level ABG pH POC ABG pCO2 POC ABG pO2 ABG pO2 ABG HCO3 ABG Base Excess ABG Hemoglobin ABG Oxyhemoglobin ABG Sodium ABG Potassium ABG Glucose Oxyhemoglobin Carboxyhemoglobin Sodium Potassium Chloride Carbon Dioxide BUN Creatinine Glucose POC Glucose 157 H 112 H Hemoglobin A1c Lactic Acid Calcium Total Bilirubin AST ALT Lactate Dehydrogenase C-Reactive Protein NT-Pro-B Natriuret Pep Total Protein Albumin Triglycerides Arterial Blood Glucose Arterial Blood Ionized Calcium Urine Creatinine Random Vancomycin Coronavirus (PCR) SARS-CoV-2 IgG Ab 03/17/20 03/17/20 03/17/20 11:55 11:55 17:20 WBC RBC Hgb Hct MCH MCHC RDW Lymph % (Auto) Wirt % (Auto) Lymph # (Auto) Wirt # (Auto) Seg Neutrophils % Seg Neutrophils # APTT D-Dimer Heparin Anti-Xa Level ABG pH POC ABG pCO2 POC ABG pO2 ABG pO2 ABG HCO3 ABG Base Excess ABG Hemoglobin 10.2 L ABG Oxyhemoglobin ABG Sodium ABG Potassium ABG Glucose 137 H Oxyhemoglobin Carboxyhemoglobin Sodium Potassium Chloride Carbon Dioxide BUN 21 H Creatinine 0.5 L Glucose 118 H POC Glucose 178 H Hemoglobin A1c Lactic Acid Calcium Total Bilirubin AST ALT Lactate Dehydrogenase C-Reactive Protein NT-Pro-B Natriuret Pep Total Protein Albumin Triglycerides Arterial Blood Glucose 137 H Arterial Blood Ionized Calcium Urine Creatinine Random Vancomycin Coronavirus (PCR) SARS-CoV-2 IgG Ab 03/18/20 03/18/20 03/18/20 00:16 03:33 05:48 WBC RBC Hgb Hct MCH MCHC RDW Lymph % (Auto) Wirt % (Auto) Lymph # (Auto) Wirt # (Auto) Seg Neutrophils % Seg Neutrophils # APTT D-Dimer Heparin Anti-Xa Level ABG pH 7.568 H POC ABG pCO2 30.6 L POC ABG pO2 167.6 H ABG pO2 ABG HCO3 ABG Base Excess ABG Hemoglobin 10.9 L ABG Oxyhemoglobin ABG Sodium 133.8 L ABG Potassium ABG Glucose 125 H Oxyhemoglobin Carboxyhemoglobin Sodium Potassium Chloride Carbon Dioxide BUN Creatinine Glucose POC Glucose 119 H 114 H Hemoglobin A1c Lactic Acid Calcium Total Bilirubin AST ALT Lactate Dehydrogenase C-Reactive Protein NT-Pro-B Natriuret Pep Total Protein Albumin Triglycerides Arterial Blood Glucose 125 H Arterial Blood Ionized Calcium Urine Creatinine Random Vancomycin Coronavirus (PCR) SARS-CoV-2 IgG Ab 03/18/20 03/18/20 03/18/20 11:46 17:11 23:18 WBC RBC Hgb Hct MCH MCHC RDW Lymph % (Auto) Wirt % (Auto) Lymph # (Auto) Wirt # (Auto) Seg Neutrophils % Seg Neutrophils # APTT D-Dimer Heparin Anti-Xa Level ABG pH POC ABG pCO2 POC ABG pO2 ABG pO2 ABG HCO3 ABG Base Excess ABG Hemoglobin ABG Oxyhemoglobin ABG Sodium ABG Potassium ABG Glucose Oxyhemoglobin Carboxyhemoglobin Sodium Potassium Chloride Carbon Dioxide BUN Creatinine Glucose POC Glucose 165 H 155 H 142 H Hemoglobin A1c Lactic Acid Calcium Total Bilirubin AST ALT Lactate Dehydrogenase C-Reactive Protein NT-Pro-B Natriuret Pep Total Protein Albumin Triglycerides Arterial Blood Glucose Arterial Blood Ionized Calcium Urine Creatinine Random Vancomycin Coronavirus (PCR) SARS-CoV-2 IgG Ab 03/19/20 03/19/20 03/19/20 04:41 05:03 10:47 WBC RBC Hgb Hct MCH MCHC RDW Lymph % (Auto) Wirt % (Auto) Lymph # (Auto) Wirt # (Auto) Seg Neutrophils % Seg Neutrophils # APTT D-Dimer Heparin Anti-Xa Level ABG pH 7.041 L 7.231 L POC ABG pCO2 100.4 H 67.5 H POC ABG pO2 142.4 H ABG pO2 ABG HCO3 ABG Base Excess ABG Hemoglobin 11.2 L 9.7 L ABG Oxyhemoglobin ABG Sodium 135.8 L 134.8 L ABG Potassium 5.3 H 4.8 H ABG Glucose 150 H 160 H Oxyhemoglobin Carboxyhemoglobin 1.6 H Sodium Potassium Chloride Carbon Dioxide BUN Creatinine Glucose POC Glucose 123 H Hemoglobin A1c Lactic Acid Calcium Total Bilirubin AST ALT Lactate Dehydrogenase C-Reactive Protein NT-Pro-B Natriuret Pep Total Protein Albumin Triglycerides Arterial Blood Glucose 150 H 160 H Arterial Blood Ionized Calcium Urine Creatinine Random Vancomycin Coronavirus (PCR) SARS-CoV-2 IgG Ab 03/19/20 03/19/20 03/19/20 11:41 14:00 14:00 WBC RBC Hgb 10.0 L Hct MCH 26 L MCHC RDW 20.5 H Lymph % (Auto) Wirt % (Auto) Lymph # (Auto) Wirt # (Auto) Seg Neutrophils % Seg Neutrophils # APTT 22.4 L D-Dimer Heparin Anti-Xa Level ABG pH POC ABG pCO2 POC ABG pO2 ABG pO2 ABG HCO3 ABG Base Excess ABG Hemoglobin ABG Oxyhemoglobin ABG Sodium ABG Potassium ABG Glucose Oxyhemoglobin Carboxyhemoglobin Sodium Potassium Chloride Carbon Dioxide BUN Creatinine Glucose POC Glucose 153 H Hemoglobin A1c Lactic Acid Calcium Total Bilirubin AST ALT Lactate Dehydrogenase C-Reactive Protein NT-Pro-B Natriuret Pep Total Protein Albumin Triglycerides Arterial Blood Glucose Arterial Blood Ionized Calcium Urine Creatinine Random Vancomycin Coronavirus (PCR) SARS-CoV-2 IgG Ab 03/19/20 03/19/20 03/19/20 14:00 14:40 21:29 WBC RBC Hgb Hct MCH MCHC RDW Lymph % (Auto) Wirt % (Auto) Lymph # (Auto) Wirt # (Auto) Seg Neutrophils % Seg Neutrophils # APTT D-Dimer Heparin Anti-Xa Level ABG pH 7.168 L POC ABG pCO2 79.0 H POC ABG pO2 56.5 L 61.2 L ABG pO2 ABG HCO3 ABG Base Excess ABG Hemoglobin 10.8 L 10.0 L ABG Oxyhemoglobin 82.6 L 89.5 L ABG Sodium 135.6 L ABG Potassium ABG Glucose 214 H 99 H Oxyhemoglobin Carboxyhemoglobin 2.0 H Sodium Potassium Chloride Carbon Dioxide BUN 42 H Creatinine 2.5 H D Glucose 235 H POC Glucose Hemoglobin A1c Lactic Acid Calcium Total Bilirubin AST ALT Lactate Dehydrogenase C-Reactive Protein NT-Pro-B Natriuret Pep Total Protein Albumin Triglycerides Arterial Blood Glucose 214 H 99 H Arterial Blood Ionized Calcium Urine Creatinine Random Vancomycin Coronavirus (PCR) SARS-CoV-2 IgG Ab 03/19/20 03/20/20 03/20/20 21:56 05:00 05:00 WBC RBC Hgb Hct MCH MCHC RDW Lymph % (Auto) Wirt % (Auto) Lymph # (Auto) Wirt # (Auto) Seg Neutrophils % Seg Neutrophils # APTT D-Dimer Heparin Anti-Xa Level 0.26 L ABG pH POC ABG pCO2 POC ABG pO2 ABG pO2 ABG HCO3 ABG Base Excess ABG Hemoglobin ABG Oxyhemoglobin ABG Sodium ABG Potassium ABG Glucose Oxyhemoglobin Carboxyhemoglobin Sodium Potassium Chloride Carbon Dioxide BUN 48 H Creatinine 2.2 H Glucose 138 H POC Glucose Hemoglobin A1c Lactic Acid Calcium Total Bilirubin AST ALT Lactate Dehydrogenase C-Reactive Protein NT-Pro-B Natriuret Pep Total Protein Albumin Triglycerides Arterial Blood Glucose Arterial Blood Ionized Calcium Urine Creatinine Random Vancomycin 54.2 H Coronavirus (PCR) SARS-CoV-2 IgG Ab 03/20/20 03/20/20 03/20/20 05:16 07:15 11:52 WBC RBC Hgb Hct MCH MCHC RDW Lymph % (Auto) Wirt % (Auto) Lymph # (Auto) Wirt # (Auto) Seg Neutrophils % Seg Neutrophils # APTT D-Dimer Heparin Anti-Xa Level 0.10 L ABG pH POC ABG pCO2 POC ABG pO2 ABG pO2 ABG HCO3 ABG Base Excess ABG Hemoglobin ABG Oxyhemoglobin ABG Sodium ABG Potassium ABG Glucose Oxyhemoglobin Carboxyhemoglobin Sodium Potassium Chloride Carbon Dioxide BUN Creatinine Glucose POC Glucose 128 H 145 H Hemoglobin A1c Lactic Acid Calcium Total Bilirubin AST ALT Lactate Dehydrogenase C-Reactive Protein NT-Pro-B Natriuret Pep Total Protein Albumin Triglycerides Arterial Blood Glucose Arterial Blood Ionized Calcium Urine Creatinine Random Vancomycin Coronavirus (PCR) SARS-CoV-2 IgG Ab 03/20/20 03/20/20 03/20/20 13:44 14:55 17:04 WBC RBC Hgb Hct MCH MCHC RDW Lymph % (Auto) Wirt % (Auto) Lymph # (Auto) Wirt # (Auto) Seg Neutrophils % Seg Neutrophils # APTT D-Dimer Heparin Anti-Xa Level 0.79 H ABG pH POC ABG pCO2 POC ABG pO2 ABG pO2 ABG HCO3 ABG Base Excess ABG Hemoglobin ABG Oxyhemoglobin ABG Sodium ABG Potassium ABG Glucose Oxyhemoglobin Carboxyhemoglobin Sodium Potassium Chloride Carbon Dioxide BUN Creatinine Glucose POC Glucose 179 H Hemoglobin A1c Lactic Acid Calcium Total Bilirubin AST ALT Lactate Dehydrogenase C-Reactive Protein NT-Pro-B Natriuret Pep Total Protein Albumin Triglycerides Arterial Blood Glucose Arterial Blood Ionized Calcium Urine Creatinine 137.9 H Random Vancomycin Coronavirus (PCR) SARS-CoV-2 IgG Ab 03/20/20 03/21/20 03/21/20 23:23 05:29 08:37 WBC RBC Hgb Hct MCH MCHC RDW Lymph % (Auto) Wirt % (Auto) Lymph # (Auto) Wirt # (Auto) Seg Neutrophils % Seg Neutrophils # APTT D-Dimer Heparin Anti-Xa Level ABG pH POC ABG pCO2 POC ABG pO2 210.3 H ABG pO2 ABG HCO3 ABG Base Excess ABG Hemoglobin 9.5 L ABG Oxyhemoglobin ABG Sodium 132.1 L ABG Potassium ABG Glucose 179 H Oxyhemoglobin Carboxyhemoglobin Sodium Potassium Chloride Carbon Dioxide BUN Creatinine Glucose POC Glucose 168 H 157 H Hemoglobin A1c Lactic Acid Calcium Total Bilirubin AST ALT Lactate Dehydrogenase C-Reactive Protein NT-Pro-B Natriuret Pep Total Protein Albumin Triglycerides Arterial Blood Glucose 179 H Arterial Blood Ionized Calcium 4.5 L Urine Creatinine Random Vancomycin Coronavirus (PCR) SARS-CoV-2 IgG Ab 03/21/20 03/21/20 03/21/20 12:01 12:20 17:12 WBC RBC Hgb Hct MCH MCHC RDW Lymph % (Auto) Wirt % (Auto) Lymph # (Auto) Wirt # (Auto) Seg Neutrophils % Seg Neutrophils # APTT D-Dimer Heparin Anti-Xa Level ABG pH POC ABG pCO2 POC ABG pO2 ABG pO2 ABG HCO3 ABG Base Excess ABG Hemoglobin ABG Oxyhemoglobin ABG Sodium ABG Potassium ABG Glucose Oxyhemoglobin Carboxyhemoglobin Sodium 133 L Potassium Chloride Carbon Dioxide 19 L BUN 56 H Creatinine 2.3 H Glucose 157 H POC Glucose 171 H 215 H Hemoglobin A1c Lactic Acid Calcium 6.8 L D Total Bilirubin AST 54 H ALT 84 H Lactate Dehydrogenase C-Reactive Protein NT-Pro-B Natriuret Pep Total Protein 4.4 L Albumin 1.7 L Triglycerides Arterial Blood Glucose Arterial Blood Ionized Calcium Urine Creatinine Random Vancomycin Coronavirus (PCR) SARS-CoV-2 IgG Ab 1203/22/20 03/22/20 23:14 00:42 02:57 WBC RBC Hgb 9.3 L Hct 30.2 L MCH MCHC RDW Lymph % (Auto) Wirt % (Auto) Lymph # (Auto) Wirt # (Auto) Seg Neutrophils % Seg Neutrophils # APTT D-Dimer Heparin Anti-Xa Level ABG pH POC ABG pCO2 POC ABG pO2 141.4 H ABG pO2 ABG HCO3 ABG Base Excess ABG Hemoglobin 9.4 L ABG Oxyhemoglobin ABG Sodium 132.3 L ABG Potassium 4.6 H ABG Glucose 217 H Oxyhemoglobin Carboxyhemoglobin Sodium Potassium Chloride Carbon Dioxide BUN Creatinine Glucose POC Glucose 191 H Hemoglobin A1c Lactic Acid Calcium Total Bilirubin AST ALT Lactate Dehydrogenase C-Reactive Protein NT-Pro-B Natriuret Pep Total Protein Albumin Triglycerides Arterial Blood Glucose 217 H Arterial Blood Ionized Calcium Urine Creatinine Random Vancomycin Coronavirus (PCR) SARS-CoV-2 IgG Ab 03/22/20 03/22/20 03/22/20 05:13 08:00 08:00 WBC RBC 3.34 L Hgb 8.4 L Hct 26.8 L MCH 25 L MCHC RDW 20.2 H Lymph % (Auto) 7.7 L Wirt % (Auto) Lymph # (Auto) 0.7 L Wirt # (Auto) Seg Neutrophils % 84.0 H Seg Neutrophils # 7.8 H APTT D-Dimer Heparin Anti-Xa Level ABG pH POC ABG pCO2 POC ABG pO2 ABG pO2 ABG HCO3 ABG Base Excess ABG Hemoglobin ABG Oxyhemoglobin ABG Sodium ABG Potassium ABG Glucose Oxyhemoglobin Carboxyhemoglobin Sodium 134 L Potassium Chloride Carbon Dioxide BUN 64 H Creatinine 2.3 H Glucose 207 H POC Glucose 201 H Hemoglobin A1c Lactic Acid Calcium Total Bilirubin AST ALT Lactate Dehydrogenase C-Reactive Protein NT-Pro-B Natriuret Pep Total Protein Albumin Triglycerides Arterial Blood Glucose Arterial Blood Ionized Calcium Urine Creatinine Random Vancomycin Coronavirus (PCR) SARS-CoV-2 IgG Ab 03/22/20 11:17 WBC RBC Hgb Hct MCH MCHC RDW Lymph % (Auto) Wirt % (Auto) Lymph # (Auto) Wirt # (Auto) Seg Neutrophils % Seg Neutrophils # APTT D-Dimer Heparin Anti-Xa Level ABG pH POC ABG pCO2 POC ABG pO2 ABG pO2 ABG HCO3 ABG Base Excess ABG Hemoglobin ABG Oxyhemoglobin ABG Sodium ABG Potassium ABG Glucose Oxyhemoglobin Carboxyhemoglobin Sodium Potassium Chloride Carbon Dioxide BUN Creatinine Glucose POC Glucose 198 H Hemoglobin A1c Lactic Acid Calcium Total Bilirubin AST ALT Lactate Dehydrogenase C-Reactive Protein NT-Pro-B Natriuret Pep Total Protein Albumin Triglycerides Arterial Blood Glucose Arterial Blood Ionized Calcium Urine Creatinine Random Vancomycin Coronavirus (PCR) SARS-CoV-2 IgG Ab Assessment and Plan 29 yo female with hypertension, dm, asthma, morbid obesity, presented with a hx of COVID-19 and noted with shortness of breath 2 days prior to admission. During this hospitalization, the patient suffered a cardiac arrest w/ a ROSC of 13 minutes and remains encephalopatic with a concern for cerebellar infarcts w/ supra/infratentorial herniation. 1. Hypoxic Anxoic Encephalopathy - concern is raised based on clinical hx of cardiac arrest w/ ROSC of 13 minutes. 2. Acute Ischemic Stroke - noted on NCHCT; repeat NCHCT pending. 3. VST - risk of a hypercoaguable state w/ COVID-19; consider CTA/V Head w/ wo contrast if/when the patient is clinically stable. 4. Metabolic Encephalopathy - in the setting of underlying infection. 5. Seizure - no clinical seizure activity noted. 6. Case to be discussed with family members after repeat NCHCT is done. Acosta Floyd MD Neurology
--- NOTE | 2020-03-22 12:07 | Consultation ---
History of Present Illness - Reason for Consult Consult date: 03/22/20 acute renal failure - History of Present Illness This is a 29-year-old woman with past medical history of morbid obesity, obesity hypoventilation syndrome, diabetes admitted with shortness of breath, COVID-19, cardiac arrest on arrival 03/13/2020. Baseline renal function appears to be normal throughout, with ID following and critical care following. She did have cardiac arrest on 03/19, CTA showing PE on 03/19, and has been on vancomycin. Creatinine had been at 0.5 until 03/19 during which it jorge to 2.2/2.3, where it has been since. Past History Past Medical History: diabetes, hypertension, hyperlipidemia, other (History of recent Covid infection) Past Surgical History: No surgical history Social history: full code. denies: smoking, alcohol abuse, prescription drug abuse Family history: hypertension Medications and Allergies Allergies Allergy/AdvReac Type Severity Reaction Status Date / Time lorazepam [From Ativan] AdvReac Unknown Verified 03/09/20 07:27 naloxone [From Narcan] AdvReac Unknown Verified 03/09/20 07:28 Home Medications Medication Instructions Recorded Confirmed Last Taken Type Citalopram Hydrobromide 20 mg PO QHS 03/09/20 03/09/20 Unknown History [Citalopram HBr] Divalproex ER [DepaKOTE ER] 1,000 mg PO QHS 03/09/20 03/09/20 Unknown History Furosemide [Lasix] 20 mg PO QDAY 03/09/20 03/09/20 Unknown History Losartan [Cozaar] 100 mg PO QDAY 03/09/20 03/09/20 Unknown History NIFEdipine [Nifedipine ER] 60 mg PO QDAY 03/09/20 03/09/20 Unknown History carvediloL [Coreg] 6.25 mg PO BID 03/09/20 03/09/20 Unknown History hydrOXYzine HCL [Atarax] 10 mg PO QHS 03/09/20 03/09/20 Unknown History risperiDONE [RisperDAL] 0.5 mg PO BID 03/09/20 03/09/20 Unknown History Active Meds: Active Medications Acetaminophen (Tylenol) 650 mg FEEDTUBE Q6H PRN PRN Reason: Pain, Mild (1-3) Last Admin: 11/29/20 09:36 Dose: 650 mg Documented by: Lipase/Protease/Amylase (Pancreaze Dr 10,500 Unit) 1 each FEEDTUBE PRN PRN PRN Reason: For Clogged Feeding Tube Fentanyl (Sublimaze) 50 mcg IV Q10MIN PRN PRN Reason: ANALGESIA Last Admin: 03/17/20 20:23 Dose: 50 mcg Documented by: Glycopyrrolate (Glycopyrrolate) 1 mg PO TID KIM Last Admin: 03/22/20 10:01 Dose: 1 mg Documented by: Hydralazine HCl (Apresoline) 10 mg IV Q4HR PRN PRN Reason: Hypertension Hydrophilic Ointment (Vaseline Lip Therapy) 1 applic TP Q2HR PRN PRN Reason: Dry Lips Fentanyl Citrate (Fentanyl Drip Premix) 2,000 mcg in 100 mls @ 8.27 mls/hr IV TITR KIM; Protocol Last Admin: 03/22/20 06:15 Dose: 4 mcg/kg/hr, 33.08 mls/hr Documented by: Heparin Sodium/Sodium Chloride (Heparin/ 0.45% Nacl-25,000 Unit/500 Ml) 25,000 unit in 500 mls @ 30 mls/hr IV TITR KIM; Protocol Last Admin: 03/21/20 21:26 Dose: 1,850 units/hr, 37 mls/hr Documented by: Norepinephrine (Levophed Drip 4 Mg/Ns 250 Ml) 4 mg in 250 mls @ 7.5 mls/hr IV TITR KIM; Protocol Last Titration: 03/22/20 06:43 Dose: 2 mcg/min, 7.5 mls/hr Documented by: Propofol (Diprivan 10 Mg/Ml) 1,000 mg in 100 mls @ 4.962 mls/hr IV TITR KIM; Protocol Last Titration: 03/21/20 18:50 Dose: 5 mcg/kg/min, 4.962 mls/hr Documented by: Vasopressin 20 unit/ Sodium (Chloride) 101 mls @ 9.09 mls/hr IV TITR KIM; Protocol Last Titration: 03/22/20 01:36 Dose: 0 units/min, 0 mls/hr Documented by: Insulin Glargine (Lantus) 35 units SUB-Q QHS KIM Last Admin: 03/21/20 21:54 Dose: 35 units Documented by: Insulin Human Lispro (Humalog) 0 unit SUB-Q Q6H [facility]; Protocol Last Admin: 03/22/20 06:12 Dose: 4 unit Documented by: Lansoprazole (Prevacid Solutab) 30 mg FEEDTUBE QDAY [facility] Last Admin: 03/22/20 10:01 Dose: 30 mg Documented by: Multi-Ingred Cream/Lotion/Oil/Oint (Artificial Tears Ophth Oint) 1 applic OU Q4HR PRN PRN Reason: Dry Eye(s) Polyethylene Glycol (Miralax 3350) 17 gm PO QDAY [facility] Last Admin: 03/22/20 10:01 Dose: 17 gm Documented by: Scopolamine (Transderm-Scop) 1 each TD Q3D [facility] Last Admin: 03/22/20 10:01 Dose: 1 each Documented by: Senna/Docusate Sodium (Senokot S) 2 tab PO BID [facility] Last Admin: 03/22/20 10:01 Dose: 2 tab Documented by: Simple Syrup (Simple Syrup) 15 ml FEEDTUBE PRN PRN PRN Reason: Hypoglycemia Simple Syrup (Simple Syrup) 30 ml FEEDTUBE PRN PRN PRN Reason: Hypoglycemia Sodium Bicarbonate (Sodium Bicarbonate) 325 mg FEEDTUBE PRN PRN PRN Reason: For Clogged Feeding Tube Review of Systems ROS unobtainable: due to endotracheal tube Exam - Vital Signs Vital signs: Vital Signs BP Pulse Ox 170/102 96 03/09/20 07:31 03/09/20 07:31 - Physical Exam Narrative exam: Patient is seen through ICU window, not directly examined due to COVID-19 pandemic conservation strategy. Noted to be PRBC 60% FiO2, on heparin gtt, Levo. Results - Lab Results 03/22/20 08:00 03/22/20 08:00 Most recent lab results ABG pH 7.379 (7.320-7.450) 03/22/20 02:57 ABG pCO2 44.2 mm Hg 03/14/20 06:15 ABG pO2 92.8 mm Hg (80.0-90.0) H 03/14/20 06:15 ABG HCO3 37.3 mmol/L (20.0-26.0) H 03/14/20 06:15 ABG O2 Saturation 97.6 % (95.0-99.0) 03/14/20 06:15 Calcium 8.4 mg/dL (8.4-10.2) D 03/22/20 08:00 Urine Creatinine 137.9 mg/dL (0.1-20.0) H 03/20/20 13:44 Urine Sodium 27 mmol/L 03/20/20 13:44 Assessment and Plan # Acute Kidney Injury: multiple reasons for MICHELLE, likely mostly due to tubular injury from cardiac arrest and suspect hypoperfusion injury on 03/19, also with contrast use, COVID-19, and supratherapeutic vancomycin. Remains non-oliguric at this time. Prior baseline creatinine 0.5. - agree with supportive measures for now, BP support as needed, IV antibiotics, etc. Maintain euvolemia as able - strict Is/Os - sending serologies, renal imaging to ensure no glomerular or obstructive causes - urinalysis pending, reviewed urine sodium/creatinine - avoid nephrotoxins, would hold vancomycin given last level >50 - renally dose meds - no immediate HD indication given non-oliguria, will follow # Acute hypoxemic respiratory failure,sepsis: due to COVID-19 and staph PNA - care per ICU, ID for COVID # status post cardiac arrest on 03/13 and 03/19: appreciate ICU, cardiology input # B/l PE: on heparin drip # HTN: holding antihypertensives, currently on low dose pressor # DM: care per primary # Obesity hypoventilation syndrome, pulmonary hypertension
[2020-03-22] MEDS: HEPARIN/ 0.45% NACL DRIP 25,000 UNIT/500 ML BAG IV SCH (12:08)
--- NOTE | 2020-03-22 14:13 | Progress Note ---
Assessment and Plan --Severe anoxic brain injury likely developed following 2nd cardiac arrest CT head with brain herniation, neurology consulted --Acute respiratory failure due to COVID-19 and staph MRSA PNA patient now intubated since 03/13 following a cardiac arrest self extubated on 03/19 then reintubated Critical care following, continue scheduled breathing treatment, IV steroid Wean off from vent as tolerated --Status post cardiac arrest x2 on 03/13 and 03/19 Patient currently intubated, 2D echo showed preserved EF with right ventricular pressure 68 --B/l PE, initiated on heparin drip --Novel Coronavirus infection Coronavirus protocol: Infectious disease service consulted, contact precautions, isolation precaution, steroid therapy, follow inflammatory markers Diagnosed over 2 weeks ago, as such not a candidate for remdesivir. Given that her ferritin is normal, less likely to be in cytokine storm. -Patient also positive for COVID-19 antibody -no scope for convalescent plasma therapy -- Pneumonia with MRSA and COVID Pneumonia protocol: Supplemental oxygen, IV antibiotic therapy, pulse oximetry, blood culture. -s/p cefepime 2 g every 8 hours given elevated white count, lactic acid and procalcitonin -Continue vancomycin as sputum culture growing MRSA for 7 days -Patient was diagnosed with COVID-19 2 weeks ago- not a candidate for remdesivir --Sepsis, due to COVID-19 and MRSA pneumonia Likely present on admission, continue antibiotics, follow inflammatory markers -- Hypertension Monitor blood pressure every shift, continue medical management -- Diabetes type 2 Tube feeding diet, sliding scale insulin therapy, Accu-Chek, hypoglycemia protocol -- Obesity hypoventilation syndrome BMI 78.7, monitor weight pulse oximetry, nebulizer therapy, supplemental oxygen, patient now intubated outpatient pulmonary follow-up for sleep study when clinically stable, need recommendation on balanced diet, increase physical activity at discharge -- Pulmonary hypertension Supportive care, outpatient pulmonology follow-up for sleep study. And also need evaluation for vasodilator therapy. -- DVT prophylaxis SCD to bilateral lower extremities while in bed, prophylactic anticoagulation. The high probability of a clinically significant, sudden or life threatening deterioration of the [pulmonary, cardiac, renal, neuro] system(s) required my full and direct attention, intervention and personal management. The aggregate critical care time was [90] minutes. This time is in addition to time spent performing reported procedures but includes the following: [x] Data Review and interpretation [x] Patient assessment and monitoring of vital signs [x] Documentation [x] Medication orders and management Brief history: 29-year-old female past medical history morbid obesity, obesity hypoventilation syndrome, diabetes admitted with shortness of breath. Patient is positive for COVID-19 diagnosed 2 weeks ago before this admission, patient required intubated following a cardiac arrest on 03/13/20. ID following and critical care following. Sputum culture is positive for staph aureus, getting abx. on 03/19 she self extubated herself and went into another cardiac arrest - immediately reintubated and ACLS started with return of pulse. 03/16: resumed care. cont iv abx, follow pending sputum Cx. wean off vent as tolerated 03/17: Sputum culture positive for MRSA, stop cefepime continue on vancomycin for 7 days per ID recommendation. Wean off vent as tolerated, continue tube feeding 03/19: Patient self extubated herself and then developed cardiac arrest. ACLS initiated and ROSC obtained. Discussed with RN at the bedside. CTA chest showed b/l PE, heparin drip initiated. Called patient's mother and updated 03/20 at present patient remains intubated was reintubated. CT scan chest showed small PE remains on heparin drip. 03/21 lew intubated no new changes over p.m. Vancomycin for 10 days per ID. Unable to wean at this time. 03/22: patient with dilated pupil w/o cough and gag response. CT head showed tentorium herniation. Neurology consulted, discusaed with CC and he will update the family. Subjective Date of service: 03/22/20 Principal diagnosis: Cardiac arrest; Ac. hypoxemic resp failure; COVID 19 infxn; Pulm HTN; OHS Interval history: Patient seen and examined Patient currently intubated with mechanical ventilation Patient also off sedated and restrained Discussed with RN at the bedside Objective - Exam Narrative Exam: GENERAL: well-developed morbidly obese -[place] female lying on bed intubated and unresponsive. HEENT: Normocephalic. Atraumatic. No conjunctival congestion or icterus. Patient has dilated fixed stable. NECK: Supple. Trachea midline. ET tube in place CHEST/LUNGS: Diminished breath sound auscultated bilaterally, mechanically ventilated HEART/CARDIOVASCULAR: Tachycardic. S1 and S2 positive. ABDOMEN: Abdomen is soft, nontender. Patient has normal bowel sounds. SKIN: There is no rash. Warm and dry. NEURO: Unresponsive MUSCULOSKELETAL: No joint effusion or tenderness. EXTRIMITY: No edema, no cyanosis or clubbing. PSYCH: Unresponsive - Constitutional Vitals: Vital Signs - 12hr 03/22/20 03/22/20 03/22/20 02:16 02:30 02:46 Temperature Pulse Rate 88 88 89 Pulse Rate [ From Monitor] Respiratory 25 H 25 H 25 H Rate Blood Pressure 118/57 114/57 111/55 O2 Sat by Pulse 98 98 98 Oximetry 03/22/20 03/22/20 03/22/20 03:00 03:16 03:21 Temperature 98.8 F Pulse Rate 89 89 Pulse Rate [ From Monitor] Respiratory 25 H 25 H Rate Blood Pressure 118/53 101/51 O2 Sat by Pulse 98 98 Oximetry 03/22/20 03/22/20 03/22/20 03:30 03:46 04:00 Temperature Pulse Rate 92 H 96 H 100 H Pulse Rate [ 100 H From Monitor] Respiratory 25 H 25 H 25 H Rate Blood Pressure 101/42 114/41 118/48 O2 Sat by Pulse 98 99 99 Oximetry 03/22/20 03/22/20 03/22/20 04:16 04:26 04:30 Temperature Pulse Rate 97 H 95 H 94 H Pulse Rate [ From Monitor] Respiratory 25 H 25 H Rate Blood Pressure 120/49 119/53 118/50 O2 Sat by Pulse 99 99 99 Oximetry 03/22/20 03/22/20 03/22/20 04:46 05:00 05:16 Temperature Pulse Rate 99 H 93 H 90 Pulse Rate [ From Monitor] Respiratory 20 25 H 25 H Rate Blood Pressure 115/41 126/52 133/64 O2 Sat by Pulse 98 99 99 Oximetry 03/22/20 03/22/20 03/22/20 05:30 05:46 06:00 Temperature Pulse Rate 89 87 87 Pulse Rate [ From Monitor] Respiratory 25 H 25 H 25 H Rate Blood Pressure 130/63 125/61 130/57 O2 Sat by Pulse 100 100 100 Oximetry 03/22/20 03/22/20 03/22/20 06:15 06:30 06:46 Temperature Pulse Rate 88 84 86 Pulse Rate [ From Monitor] Respiratory 25 H 25 H 25 H Rate Blood Pressure 133/59 135/55 113/33 O2 Sat by Pulse 100 99 99 Oximetry 03/22/20 03/22/20 03/22/20 07:00 07:16 07:30 Temperature Pulse Rate 92 H 92 H 91 H Pulse Rate [ From Monitor] Respiratory 25 H 25 H 25 H Rate Blood Pressure 118/47 113/33 127/64 O2 Sat by Pulse 99 100 100 Oximetry 03/22/20 03/22/20 03/22/20 07:46 08:00 08:16 Temperature 98.1 F Pulse Rate 89 90 86 Pulse Rate [ 100 H From Monitor] Respiratory 25 H 25 H 25 H Rate Blood Pressure 119/71 124/70 124/70 O2 Sat by Pulse 100 100 100 Oximetry 03/22/20 03/22/20 03/22/20 08:22 08:30 08:46 Temperature Pulse Rate 87 86 87 Pulse Rate [ From Monitor] Respiratory 25 H 25 H Rate Blood Pressure 134/59 132/57 140/65 O2 Sat by Pulse 99 99 98 Oximetry 03/22/20 03/22/20 03/22/20 09:00 09:16 09:52 Temperature Pulse Rate 88 88 103 H Pulse Rate [ From Monitor] Respiratory 25 H 25 H 25 H Rate Blood Pressure 130/53 124/55 143/60 O2 Sat by Pulse 98 98 94 Oximetry 03/22/20 03/22/20 03/22/20 10:00 10:16 10:30 Temperature Pulse Rate 98 H 101 H 101 H Pulse Rate [ From Monitor] Respiratory 25 H 26 H 25 H Rate Blood Pressure 143/60 131/66 161/84 O2 Sat by Pulse 95 96 95 Oximetry 03/22/20 03/22/20 03/22/20 10:46 11:00 11:16 Temperature Pulse Rate 101 H 100 H 100 H Pulse Rate [ From Monitor] Respiratory 25 H 25 H 25 H Rate Blood Pressure 160/85 158/86 161/85 O2 Sat by Pulse 95 96 96 Oximetry 03/22/20 03/22/20 03/22/20 11:30 11:46 11:57 Temperature Pulse Rate 99 H 100 H 98 H Pulse Rate [ From Monitor] Respiratory 25 H 25 H Rate Blood Pressure 151/81 155/79 152/78 O2 Sat by Pulse 96 97 96 Oximetry 03/22/20 03/22/20 03/22/20 12:00 12:16 12:30 Temperature Pulse Rate 92 H 100 H 99 H Pulse Rate [ From Monitor] Respiratory 25 H 25 H 25 H Rate Blood Pressure 142/74 165/107 146/71 O2 Sat by Pulse 100 96 96 Oximetry 03/22/20 03/22/20 03/22/20 12:46 13:00 13:16 Temperature Pulse Rate 97 H 98 H 98 H Pulse Rate [ From Monitor] Respiratory 25 H 25 H 25 H Rate Blood Pressure 149/74 146/72 149/78 O2 Sat by Pulse 96 96 97 Oximetry 03/22/20 03/22/20 13:30 13:46 Temperature Pulse Rate 93 H 97 H Pulse Rate [ From Monitor] Respiratory 25 H 25 H Rate Blood Pressure 146/67 154/70 O2 Sat by Pulse 94 97 Oximetry - Labs CBC & Chem 7: 03/25/20 05:15 03/25/20 05:15 Labs: Abnormal lab results 03/21/20 03/21/20 03/22/20 Range/Units 17:12 23:14 00:42 RBC (3.65-5.03) M/mm3 Hgb 9.3 L (10.1-14.3) gm/dl Hct 30.2 L (30.3-42.9) % MCH (28-32) pg RDW (13.2-15.2) % Lymph % (Auto) (13.4-35.0) % Lymph # (Auto) (1.2-5.4) K/mm3 Seg Neutrophils % (40.0-70.0) % Seg Neutrophils # (1.8-7.7) K/mm3 POC ABG pO2 (83-108) mmHg ABG Hemoglobin (12.0-17.5) ABG Sodium (136.0-145.0) mmol/L ABG Potassium (3.40-4.50) mmol/L ABG Glucose (65-95) mg/dL Sodium (137-145) mmol/L BUN (7-17) mg/dL Creatinine (0.6-1.2) mg/dL Glucose (65-100) mg/dL POC Glucose 215 H 191 H (70-105) mg/dL Arterial Blood Glucose (65-95) mg/dL 03/22/20 03/22/20 03/22/20 Range/Units 02:57 05:13 08:00 RBC 3.34 L (3.65-5.03) M/mm3 Hgb 8.4 L (10.1-14.3) gm/dl Hct 26.8 L (30.3-42.9) % MCH 25 L (28-32) pg RDW 20.2 H (13.2-15.2) % Lymph % (Auto) 7.7 L (13.4-35.0) % Lymph # (Auto) 0.7 L (1.2-5.4) K/mm3 Seg Neutrophils % 84.0 H (40.0-70.0) % Seg Neutrophils # 7.8 H (1.8-7.7) K/mm3 POC ABG pO2 141.4 H (83-108) mmHg ABG Hemoglobin 9.4 L (12.0-17.5) ABG Sodium 132.3 L (136.0-145.0) mmol/L ABG Potassium 4.6 H (3.40-4.50) mmol/L ABG Glucose 217 H (65-95) mg/dL Sodium (137-145) mmol/L BUN (7-17) mg/dL Creatinine (0.6-1.2) mg/dL Glucose (65-100) mg/dL POC Glucose 201 H (70-105) mg/dL Arterial Blood Glucose 217 H (65-95) mg/dL 03/22/20 03/22/20 Range/Units 08:00 11:17 RBC (3.65-5.03) M/mm3 Hgb (10.1-14.3) gm/dl Hct (30.3-42.9) % MCH (28-32) pg RDW (13.2-15.2) % Lymph % (Auto) (13.4-35.0) % Lymph # (Auto) (1.2-5.4) K/mm3 Seg Neutrophils % (40.0-70.0) % Seg Neutrophils # (1.8-7.7) K/mm3 POC ABG pO2 (83-108) mmHg ABG Hemoglobin (12.0-17.5) ABG Sodium (136.0-145.0) mmol/L ABG Potassium (3.40-4.50) mmol/L ABG Glucose (65-95) mg/dL Sodium 134 L (137-145) mmol/L BUN 64 H (7-17) mg/dL Creatinine 2.3 H (0.6-1.2) mg/dL Glucose 207 H (65-100) mg/dL POC Glucose 198 H (70-105) mg/dL Arterial Blood Glucose (65-95) mg/dL HEART Score - HEART Score Troponin: Troponin T 0.017 ng/mL (0.00-0.029) 03/14/20 09:17
[2020-03-22] MEDS: dexAMETHasone 4 MG/ML VIAL IV SCH ×2 (15:10→21:24)
[2020-03-22 17:09] LABS: Bacteria,Urine 4+ /HPF (Negative); Bilirubin,Urine NEG (Negative); Blood,Urine MOD (Negative); Color,Urine Yellow (Yellow)
[2020-03-22 17:10] LABS: RBC,Urine > 182.0 /HPF (0.0-6.0); WBC,Urine > 182.0 /HPF (0.0-6.0)
[2020-03-22] MEDS: QUEtiapine 100 MG TAB PO SCH (18:33)
[2020-03-22] MEDS: NORepinephrine/NS 4 MG-250 ML 4 MG/250 ML BAG IV SCH (20:38)
[2020-03-22] MEDS: INSULIN GLARGINE 100 UNITS/ML SUB-Q SCH (21:18)
[2020-03-23] MEDS: dexAMETHasone 4 MG/ML VIAL IV SCH ×3 (05:50→22:16)
[2020-03-23] MEDS: INSULIN LISPRO 100 UNIT/ML VIAL 3 mL SUB-Q SCH ×4 (06:00→18:44)
[2020-03-23 06:39] LABS: Hematocrit 28.4 % (30.3-42.9); Hemoglobin 8.8 gm/dl (10.1-14.3)
--- NOTE | 2020-03-23 07:08 | Progress Note ---
Assessment and Plan Cultures: Blood culture 03/09/2020 no growth Urine culture 03/09/2020 Tracheal aspirate culture 03/13/2020 MRSA A/P: 29-year-old female past medical history morbid obesity, obesity hypoventilation syndrome, diabetes admitted with shortness of breath #Status post cardiac arrest - x2 on 03/13 and 03/19 #Shock: Multifactorial, likely septic source ? Pneumonia ? UTI #Critical COVID-19 pneumonia +/- MRSA pneumonia: COVID-19 diagnosed over 2 weeks before admission, as such not a candidate for remdesivir. Markers mildly elevated. Procalcitonin slightly elevated at 0.3. Tract aspirate grew MRSA. Intubated 03/13/2020 after cardiac arrest, self extubated 03/19/2020, then reintubated. #Acute hypoxemic respiratory failure: Likely secondary to COVID-19 infection versus CHF versus bacterial pneumonia. Remains intubated FiO2 60%, PEEP 14. #Diabetes: tight glycemic control for best outcomes. #Morbid obesity: Associated with worse outcomes, recommend diet modifications #CHF: acute volume overload #PE: non-occlusive. #Acute encephalopathy: Patient unresponsive fixed pupils, repeat CT head with marked hypoattenuation in the cerebral hemispheres bilaterally, ascending and descending tentorial herniation. Neurology on board #MICHELLE worsening Recs: -Completed vancomycin to complete 10 days on 03/21/2020. -Recheck blood cultures and tracheal aspirate -Follow urine cultures -Exchange Varela catheter -Start cefepime 2 g IV every 12 hours, renally adjusted given UTI Overall very poor prognosis, patient unresponsive with brain herniation Miesha Ramirez MD [facility] ([facility]) Office [phone] Subjective Date of service: 03/23/20 Principal diagnosis: Cardiac arrest; Ac. hypoxemic resp failure; COVID 19 infxn; Pulm HTN; OHS Interval history: Remains intubated, no fever, tachycardic Objective - Exam Narrative Exam: Physical Exam: reviewed ED and hospitalist notes, limited due to conservation of PPE and decrease risk of transmission. General appearance: limited due to conservation of PPE Eyes: limited due to conservation of PPE HENT: Atraumatic; limited due to conservation of PPE Lungs: limited due to conservation of PPE CV: limited due to conservation of PPE Abdomen: limited due to conservation of PPE Extremities: limited due to conservation of PPE Skin: limited due to conservation of PPE Psych: limited due to conservation of PPE Neuro: limited due to conservation of PPE - Constitutional Vitals: Vital Signs Temp Pulse Resp BP Pulse Ox 98.9 F 107 H 25 H 150/82 97 03/23/20 03:12 03/23/20 04:19 03/23/20 00:00 03/23/20 04:19 03/23/20 04:19 Temperature -Last 24 Hours Temperature 98.9 F Temperature 98.9 F Temperature 98.8 F Temperature 97.4 F Temperature 97.8 F Temperature 98.1 F - Labs CBC & Chem 7: 03/23/20 06:00 03/22/20 08:00 Labs: Abnormal lab results 03/22/20 03/22/20 03/22/20 Range/Units 08:00 08:00 11:17 RBC 3.34 L (3.65-5.03) M/mm3 Hgb 8.4 L (10.1-14.3) gm/dl Hct 26.8 L (30.3-42.9) % MCH 25 L (28-32) pg RDW 20.2 H (13.2-15.2) % Lymph % (Auto) 7.7 L (13.4-35.0) % Lymph # (Auto) 0.7 L (1.2-5.4) K/mm3 Seg Neutrophils % 84.0 H (40.0-70.0) % Seg Neutrophils # 7.8 H (1.8-7.7) K/mm3 Heparin Anti-Xa Level (0.3-0.7) U.I./ml POC ABG pO2 (83-108) mmHg ABG Hemoglobin (12.0-17.5) ABG Potassium (3.40-4.50) mmol/L ABG Chloride (98-107) mmol/L ABG Glucose (65-95) mg/dL Sodium 134 L (137-145) mmol/L BUN 64 H (7-17) mg/dL Creatinine 2.3 H (0.6-1.2) mg/dL Glucose 207 H (65-100) mg/dL POC Glucose 198 H (70-105) mg/dL Arterial Blood Glucose (65-95) mg/dL Urine WBC (Auto) (0.0-6.0) /HPF U Epithel Cells (Auto) (0-13.0) /HPF 03/22/20 03/22/20 03/22/20 Range/Units 15:00 16:53 23:17 RBC (3.65-5.03) M/mm3 Hgb (10.1-14.3) gm/dl Hct (30.3-42.9) % MCH (28-32) pg RDW (13.2-15.2) % Lymph % (Auto) (13.4-35.0) % Lymph # (Auto) (1.2-5.4) K/mm3 Seg Neutrophils % (40.0-70.0) % Seg Neutrophils # (1.8-7.7) K/mm3 Heparin Anti-Xa Level 0.17 L (0.3-0.7) U.I./ml POC ABG pO2 (83-108) mmHg ABG Hemoglobin (12.0-17.5) ABG Potassium (3.40-4.50) mmol/L ABG Chloride (98-107) mmol/L ABG Glucose (65-95) mg/dL Sodium (137-145) mmol/L BUN (7-17) mg/dL Creatinine (0.6-1.2) mg/dL Glucose (65-100) mg/dL POC Glucose 182 H (70-105) mg/dL Arterial Blood Glucose (65-95) mg/dL Urine WBC (Auto) > 182.0 H (0.0-6.0) /HPF U Epithel Cells (Auto) 17.0 H (0-13.0) /HPF 03/22/20 03/23/20 03/23/20 Range/Units 23:27 05:30 06:00 RBC (3.65-5.03) M/mm3 Hgb 8.8 L (10.1-14.3) gm/dl Hct 28.4 L (30.3-42.9) % MCH (28-32) pg RDW (13.2-15.2) % Lymph % (Auto) (13.4-35.0) % Lymph # (Auto) (1.2-5.4) K/mm3 Seg Neutrophils % (40.0-70.0) % Seg Neutrophils # (1.8-7.7) K/mm3 Heparin Anti-Xa Level (0.3-0.7) U.I./ml POC ABG pO2 (83-108) mmHg ABG Hemoglobin (12.0-17.5) ABG Potassium (3.40-4.50) mmol/L ABG Chloride (98-107) mmol/L ABG Glucose (65-95) mg/dL Sodium (137-145) mmol/L BUN (7-17) mg/dL Creatinine (0.6-1.2) mg/dL Glucose (65-100) mg/dL POC Glucose 235 H 283 H (70-105) mg/dL Arterial Blood Glucose (65-95) mg/dL Urine WBC (Auto) (0.0-6.0) /HPF U Epithel Cells (Auto) (0-13.0) /HPF 03/23/20 Range/Units Unknown RBC (3.65-5.03) M/mm3 Hgb (10.1-14.3) gm/dl Hct (30.3-42.9) % MCH (28-32) pg RDW (13.2-15.2) % Lymph % (Auto) (13.4-35.0) % Lymph # (Auto) (1.2-5.4) K/mm3 Seg Neutrophils % (40.0-70.0) % Seg Neutrophils # (1.8-7.7) K/mm3 Heparin Anti-Xa Level (0.3-0.7) U.I./ml POC ABG pO2 81.6 L (83-108) mmHg ABG Hemoglobin 10.1 L (12.0-17.5) ABG Potassium 5.1 H (3.40-4.50) mmol/L ABG Chloride 109.0 H (98-107) mmol/L ABG Glucose 295 H (65-95) mg/dL Sodium (137-145) mmol/L BUN (7-17) mg/dL Creatinine (0.6-1.2) mg/dL Glucose (65-100) mg/dL POC Glucose (70-105) mg/dL Arterial Blood Glucose 295 H (65-95) mg/dL Urine WBC (Auto) (0.0-6.0) /HPF U Epithel Cells (Auto) (0-13.0) /HPF
[2020-03-23] MEDS: HEPARIN/ 0.45% NACL DRIP 25,000 UNIT/500 ML BAG IV SCH ×2 (07:36→14:09)
[2020-03-23] MEDS: GLYCOPYRROLATE 2 MG TAB PO SCH ×3 (08:25→22:16)
[2020-03-23] MEDS ORDERED: VANCOMYCIN 2,000 MG in SODIUM CHLORIDE 0.9% 500 ML 500 ML IV SCH (10:00)
[2020-03-23] MEDS: CEFEPIME/NS 2 GM/100 ML 2 GM/100 ML BAG IV SCH ×2 (10:25→22:15)
[2020-03-23] MEDS: SENNOSIDES/DOCUSATE SODIUM 8.6/50 MG TAB PO SCH ×2 (10:25→22:15)
[2020-03-23] MEDS: LANSOPRAZOLE 30 MG SOLUTAB FEEDTUBE SCH (10:25)
[2020-03-23] MEDS: POLYETHYLENE GLYCOL 3350 17 GM POWDER PO SCH (10:26)
[2020-03-23 11:26] LABS: C-Reactive Protein 26.3 mg/dL (0.00-1.30); Calcium 9.5 mg/dL (8.4-10.2)
--- NOTE | 2020-03-23 12:47 | Progress Note ---
Assessment and Plan Cardiopulmoanry arrest with ROSC Acute hypoxemic respiratory failure on MVS COVID 19 infection MICHELLE Extreme obesity Pulmonary HTN Obesity hypoventilation syndrome - continue Dexamethasone 4 mg IV q8h re: tentative herniation - neurology evaluation ongoing - continue Lantus at 40 units SQ daily - continue to wean supplemental oxygen for target O2 sat's > 92% acutely; keep peep at 14 - azotemia per nephrology - continue full dose IV heparin for anticoagulation - continue care as below otherwise; - continue difficult airway sign - continue Seroquel 300 mg BID for sedation / anxiolysis - continue bowel regimen - adjust Geodon dose based on response - prn gentle diuresis; monitor output and follow renal function/electrolytes - contact and airborne isolation per facility protocols for COVID - Daily SAT's and SBT assessment as tolerated - continue accuchecks with glycemic control per SSI (While critically ill target blood glucose of 140-180 mg/dL; avoid hypoglycemia) - sedation prn for target RASS -1 to -2 - VAP bundle addressed - continue lung protective strategies - continue bronchodilators with pulmonary hygiene per RT - wean per pulmonary driven protocols otherwise - Varela catheter in this critically ill patient - Conservative fluid management - avoid nephrotoxins, renally dose all medications - Empiric antibiotics to include HAP coverage (on Vanc and Cefepime); adjust per ID recommendations and clinical response - prn analgesia per CPOT score - Maintenance of sleep-wake cycle, avoid delirium - continue enteral nutritional support at goal rate as tolerated - G.I. & VTE prophylaxis withy Famotidine and Lovenox - PT/OT/ROM exercises - continue mobility protocols for pressure ulcer prophylaxis - Monitor hemodynamics closely - continue other care per attending / other consultants - discharge planning ongoing concurrently .... Re-evaluate in am & prn CONDITION: CRITICAL PROGNOSIS: GUARDED CODE STATUS: FULL CODE The high probability of a clinically significant, sudden or life-threatening deterioration of the [respiratory, cardiovascular and neurologic] system (s) required my full and direct attention, intervention and personal management. The aggregate critical care time was [36] minutes without overlap. Time includes spent on; [x] Data Review and interpretation [x] Patient assessment and monitoring of vital signs [x] Documentation [x] Medication orders and management Subjective Date of service: 03/23/20 Principal diagnosis: Cardiac arrest; Ac. hypoxemic resp failure; COVID 19 infxn; Pulm HTN; OHS Interval history: Patient is seen today for: Cardiopulmoanry arrest with ROSC; Acute hypoxemic respiratory failure on MVS; COVID; Extreme obesity; Pulmonary HTN; Obesity hypoventilation syndrome Seen and examined at bedside; 24hour events reviewed; nursing and respiratory care staff consulted; no adverse overnight events reported to me; resting peacefully in bed; remains on MVS; EEG ongoing at time of my examination and really "slow waves"; slowly weaning FiO2 down; AMS is persistent Objective Vital Signs - 12hr 03/23/20 03/23/20 03/23/20 01:00 01:16 01:30 Temperature Pulse Rate 108 H 106 H 106 H Pulse Rate [ From Monitor] Respiratory 25 H 25 H 25 H Rate Blood Pressure 155/82 157/80 154/83 O2 Sat by Pulse 97 97 97 Oximetry 03/23/20 03/23/20 03/23/20 01:46 02:00 02:16 Temperature Pulse Rate 106 H 105 H 105 H Pulse Rate [ From Monitor] Respiratory 25 H 25 H 25 H Rate Blood Pressure 151/86 148/84 152/80 O2 Sat by Pulse 97 97 96 Oximetry 03/23/20 03/23/20 03/23/20 02:30 02:46 03:00 Temperature Pulse Rate 102 H 108 H 108 H Pulse Rate [ From Monitor] Respiratory 25 H 25 H 25 H Rate Blood Pressure 131/58 149/75 148/70 O2 Sat by Pulse 96 96 96 Oximetry 03/23/20 03/23/20 03/23/20 03:12 03:16 03:30 Temperature 98.9 F Pulse Rate 108 H 108 H Pulse Rate [ From Monitor] Respiratory 25 H 24 Rate Blood Pressure 147/76 146/83 O2 Sat by Pulse 97 97 Oximetry 03/23/20 03/23/20 03/23/20 03:46 04:00 04:16 Temperature Pulse Rate 107 H 106 H 107 H Pulse Rate [ 86 From Monitor] Respiratory 25 H 25 H 25 H Rate Blood Pressure 154/83 149/84 151/84 O2 Sat by Pulse 97 97 97 Oximetry 03/23/20 03/23/20 03/23/20 04:19 04:30 04:46 Temperature Pulse Rate 107 H 106 H 107 H Pulse Rate [ From Monitor] Respiratory 25 H 25 H Rate Blood Pressure 150/82 149/82 152/79 O2 Sat by Pulse 97 97 97 Oximetry 03/23/20 03/23/20 03/23/20 05:00 05:16 05:30 Temperature Pulse Rate 107 H 108 H 107 H Pulse Rate [ From Monitor] Respiratory 25 H 25 H 25 H Rate Blood Pressure 138/75 143/77 148/78 O2 Sat by Pulse 97 97 97 Oximetry 03/23/20 03/23/20 03/23/20 05:46 06:00 06:16 Temperature Pulse Rate 108 H 108 H 107 H Pulse Rate [ From Monitor] Respiratory 25 H 25 H 25 H Rate Blood Pressure 152/75 141/81 152/74 O2 Sat by Pulse 97 98 98 Oximetry 03/23/20 03/23/20 03/23/20 06:30 06:46 07:00 Temperature Pulse Rate 106 H 108 H 108 H Pulse Rate [ From Monitor] Respiratory 25 H 25 H 25 H Rate Blood Pressure 142/77 153/78 158/80 O2 Sat by Pulse 98 98 98 Oximetry 03/23/20 03/23/20 03/23/20 07:16 07:24 07:30 Temperature Pulse Rate 107 H 107 H 107 H Pulse Rate [ From Monitor] Respiratory 25 H 25 H Rate Blood Pressure 157/82 157/83 158/85 O2 Sat by Pulse 98 97 97 Oximetry 03/23/20 03/23/20 03/23/20 07:46 08:00 08:16 Temperature Pulse Rate 107 H 107 H 108 H Pulse Rate [ 86 From Monitor] Respiratory 25 H 25 H 25 H Rate Blood Pressure 162/85 167/87 169/88 O2 Sat by Pulse 97 97 97 Oximetry 03/23/20 03/23/20 03/23/20 08:30 08:46 09:00 Temperature Pulse Rate 108 H 108 H 109 H Pulse Rate [ From Monitor] Respiratory 25 H 25 H 25 H Rate Blood Pressure 161/90 163/84 163/86 O2 Sat by Pulse 97 97 96 Oximetry 03/23/20 03/23/20 03/23/20 09:16 09:30 09:46 Temperature Pulse Rate 110 H 110 H 112 H Pulse Rate [ From Monitor] Respiratory 25 H 25 H 25 H Rate Blood Pressure 160/84 160/78 163/86 O2 Sat by Pulse 96 96 97 Oximetry 03/23/20 03/23/20 03/23/20 10:00 10:16 10:30 Temperature Pulse Rate 111 H 110 H 108 H Pulse Rate [ From Monitor] Respiratory 25 H 25 H 25 H Rate Blood Pressure 160/86 163/88 168/84 O2 Sat by Pulse 97 97 97 Oximetry 03/23/20 03/23/20 03/23/20 10:46 11:00 11:59 Temperature Pulse Rate 110 H 111 H 111 H Pulse Rate [ From Monitor] Respiratory 25 H 25 H Rate Blood Pressure 176/94 162/90 167/92 O2 Sat by Pulse 97 97 97 Oximetry Constitutional: no acute distress, other (young obese female with moderately increased respiratory effort at rest on MVS) Eyes: non-icteric ENT: oropharynx moist, oropharyngeal exudate pre (moderate), other (orally intubated, ETT 24 cm ) Neck: supple, no lymphadenopathy, other (large circumference) Effort: mildly labored Ascultation: Bilateral: rhonchi Percussion: Bilateral: not dull Cardiovascular: regular rate and rhythm, other (S1,S2) Gastrointestinal: normoactive bowel sounds, soft, non-distended (protuberant), other (obese) Integumentary: rash Extremities: no cyanosis, no edema, pulses normal, no ischemia or petechiae Neurologic: pupils equal and round (dilated 7-8 mm), unable to assess Psychiatric: other (unable to assess) CBC and BMP: 03/23/20 06:00 03/24/20 02:08 ABG, PT/INR, D-dimer: ABG ABG pH 7.343 (7.320-7.450) 03/23/20 Unknown POC ABG pCO2 40.0 mmHg (32.0-48.0) 03/23/20 Unknown ABG pCO2 44.2 mm Hg 03/14/20 06:15 POC ABG pO2 81.6 mmHg (83-108) L 03/23/20 Unknown ABG pO2 92.8 mm Hg (80.0-90.0) H 03/14/20 06:15 POC ABG HCO3 21.2 03/23/20 Unknown ABG O2 Saturation 97.6 % (95.0-99.0) 03/14/20 06:15 PT/INR, D-dimer PT 13.9 Sec. (12.2-14.9) 03/19/20 14:00 INR 1.08 (0.87-1.13) 03/19/20 14:00 D-Dimer 1509.37 ng/mlDDU (0-234) H 03/23/20 09:30 Abnormal lab findings: Abnormal Labs 03/09/20 03/09/20 03/09/20 08:27 08:27 08:27 WBC 15.8 H RBC 5.43 H Hgb Hct MCH 24 L MCHC RDW 19.3 H Lymph % (Auto) Rab[place] % (Auto) 8.2 H Lymph # (Auto) [place] # (Auto) 1.3 H Seg Neutrophils % 70.4 H Seg Neutrophils # 11.1 H APTT D-Dimer Heparin Anti-Xa Level ABG pH POC ABG pCO2 POC ABG pO2 ABG pO2 ABG HCO3 ABG Base Excess ABG Hemoglobin ABG Oxyhemoglobin ABG Sodium ABG Potassium ABG Chloride ABG Glucose Oxyhemoglobin Carboxyhemoglobin Sodium Potassium Chloride 97.1 L Carbon Dioxide BUN 29 H Creatinine Glucose 178 H POC Glucose Hemoglobin A1c Lactic Acid 3.70 H* Calcium Ferritin Total Bilirubin AST ALT Lactate Dehydrogenase 369 H C-Reactive Protein 3.00 H NT-Pro-B Natriuret Pep Total Protein Albumin Triglycerides Arterial Blood Glucose Arterial Blood Ionized Calcium Urine WBC (Auto) U Epithel Cells (Auto) Urine Creatinine Random Vancomycin Coronavirus (PCR) SARS-CoV-2 IgG Ab 03/09/20 03/09/20 03/09/20 08:27 08:27 08:27 WBC RBC Hgb Hct MCH MCHC RDW Lymph % (Auto) [place] % (Auto) Lymph # (Auto) [place] # (Auto) Seg Neutrophils % Seg Neutrophils # APTT D-Dimer 1042.81 H Heparin Anti-Xa Level ABG pH POC ABG pCO2 POC ABG pO2 ABG pO2 ABG HCO3 ABG Base Excess ABG Hemoglobin ABG Oxyhemoglobin ABG Sodium ABG Potassium ABG Chloride ABG Glucose Oxyhemoglobin Carboxyhemoglobin Sodium Potassium Chloride Carbon Dioxide BUN Creatinine Glucose POC Glucose Hemoglobin A1c 8.0 H Lactic Acid Calcium Ferritin Total Bilirubin AST ALT Lactate Dehydrogenase C-Reactive Protein NT-Pro-B Natriuret Pep 2914 H Total Protein Albumin Triglycerides Arterial Blood Glucose Arterial Blood Ionized Calcium Urine WBC (Auto) U Epithel Cells (Auto) Urine Creatinine Random Vancomycin Coronavirus (PCR) SARS-CoV-2 IgG Ab 03/09/20 03/09/20 03/10/20 08:43 23:04 05:23 WBC RBC Hgb Hct MCH MCHC RDW Lymph % (Auto) [place] % (Auto) Lymph # (Auto) [place] # (Auto) Seg Neutrophils % Seg Neutrophils # APTT D-Dimer Heparin Anti-Xa Level ABG pH POC ABG pCO2 POC ABG pO2 ABG pO2 ABG HCO3 ABG Base Excess ABG Hemoglobin ABG Oxyhemoglobin ABG Sodium ABG Potassium ABG Chloride ABG Glucose Oxyhemoglobin Carboxyhemoglobin Sodium Potassium Chloride Carbon Dioxide BUN Creatinine Glucose POC Glucose 361 H Hemoglobin A1c Lactic Acid 6.80 H* Calcium Ferritin Total Bilirubin AST ALT Lactate Dehydrogenase C-Reactive Protein NT-Pro-B Natriuret Pep Total Protein Albumin Triglycerides Arterial Blood Glucose Arterial Blood Ionized Calcium Urine WBC (Auto) U Epithel Cells (Auto) Urine Creatinine Random Vancomycin Coronavirus (PCR) Positive A SARS-CoV-2 IgG Ab 03/10/20 03/10/20 03/10/20 08:19 10:49 17:11 WBC RBC Hgb Hct MCH MCHC RDW Lymph % (Auto) [place] % (Auto) Lymph # (Auto) [place] # (Auto) Seg Neutrophils % Seg Neutrophils # APTT D-Dimer Heparin Anti-Xa Level ABG pH POC ABG pCO2 POC ABG pO2 ABG pO2 ABG HCO3 ABG Base Excess ABG Hemoglobin ABG Oxyhemoglobin ABG Sodium ABG Potassium ABG Chloride ABG Glucose Oxyhemoglobin Carboxyhemoglobin Sodium Potassium Chloride Carbon Dioxide BUN Creatinine Glucose POC Glucose 371 H 423 H 373 H Hemoglobin A1c Lactic Acid Calcium Ferritin Total Bilirubin AST ALT Lactate Dehydrogenase C-Reactive Protein NT-Pro-B Natriuret Pep Total Protein Albumin Triglycerides Arterial Blood Glucose Arterial Blood Ionized Calcium Urine WBC (Auto) U Epithel Cells (Auto) Urine Creatinine Random Vancomycin Coronavirus (PCR) SARS-CoV-2 IgG Ab 03/11/20 03/11/20 03/11/20 00:29 07:52 13:12 WBC RBC Hgb Hct MCH MCHC RDW Lymph % (Auto) [place] % (Auto) Lymph # (Auto) [place] # (Auto) Seg Neutrophils % Seg Neutrophils # APTT D-Dimer Heparin Anti-Xa Level ABG pH POC ABG pCO2 POC ABG pO2 ABG pO2 ABG HCO3 ABG Base Excess ABG Hemoglobin ABG Oxyhemoglobin ABG Sodium ABG Potassium ABG Chloride ABG Glucose Oxyhemoglobin Carboxyhemoglobin Sodium Potassium Chloride Carbon Dioxide BUN Creatinine Glucose POC Glucose 242 H 233 H 352 H Hemoglobin A1c Lactic Acid Calcium Ferritin Total Bilirubin AST ALT Lactate Dehydrogenase C-Reactive Protein NT-Pro-B Natriuret Pep Total Protein Albumin Triglycerides Arterial Blood Glucose Arterial Blood Ionized Calcium Urine WBC (Auto) U Epithel Cells (Auto) Urine Creatinine Random Vancomycin Coronavirus (PCR) SARS-CoV-2 IgG Ab 03/11/20 03/11/20 03/12/20 15:24 22:54 08:22 WBC RBC Hgb Hct MCH MCHC RDW Lymph % (Auto) [place] % (Auto) Lymph # (Auto) [place] # (Auto) Seg Neutrophils % Seg Neutrophils # APTT D-Dimer Heparin Anti-Xa Level ABG pH POC ABG pCO2 POC ABG pO2 ABG pO2 ABG HCO3 ABG Base Excess ABG Hemoglobin ABG Oxyhemoglobin ABG Sodium ABG Potassium ABG Chloride ABG Glucose Oxyhemoglobin Carboxyhemoglobin Sodium Potassium Chloride Carbon Dioxide BUN Creatinine Glucose POC Glucose 386 H 418 H 431 H Hemoglobin A1c Lactic Acid Calcium Ferritin Total Bilirubin AST ALT Lactate Dehydrogenase C-Reactive Protein NT-Pro-B Natriuret Pep Total Protein Albumin Triglycerides Arterial Blood Glucose Arterial Blood Ionized Calcium Urine WBC (Auto) U Epithel Cells (Auto) Urine Creatinine Random Vancomycin Coronavirus (PCR) SARS-CoV-2 IgG Ab 03/12/20 03/12/20 03/12/20 11:34 16:53 22:20 WBC RBC Hgb Hct MCH MCHC RDW Lymph % (Auto) [place] % (Auto) Lymph # (Auto) [place] # (Auto) Seg Neutrophils % Seg Neutrophils # APTT D-Dimer Heparin Anti-Xa Level ABG pH POC ABG pCO2 POC ABG pO2 ABG pO2 ABG HCO3 ABG Base Excess ABG Hemoglobin ABG Oxyhemoglobin ABG Sodium ABG Potassium ABG Chloride ABG Glucose Oxyhemoglobin Carboxyhemoglobin Sodium Potassium Chloride Carbon Dioxide BUN Creatinine Glucose POC Glucose 310 H 358 H 295 H Hemoglobin A1c Lactic Acid Calcium Ferritin Total Bilirubin AST ALT Lactate Dehydrogenase C-Reactive Protein NT-Pro-B Natriuret Pep Total Protein Albumin Triglycerides Arterial Blood Glucose Arterial Blood Ionized Calcium Urine WBC (Auto) U Epithel Cells (Auto) Urine Creatinine Random Vancomycin Coronavirus (PCR) SARS-CoV-2 IgG Ab 03/13/20 03/13/20 03/13/20 05:48 09:15 12:09 WBC 18.3 H RBC Hgb Hct MCH 24 L MCHC 29 L RDW 18.9 H Lymph % (Auto) 7.8 L Rab[place] % (Auto) 9.7 H Lymph # (Auto) [place] # (Auto) 1.8 H Seg Neutrophils % 82.0 H Seg Neutrophils # 15.0 H APTT D-Dimer Heparin Anti-Xa Level ABG pH 7.327 L POC ABG pCO2 POC ABG pO2 ABG pO2 73.0 L ABG HCO3 39.3 H ABG Base Excess 10.8 H ABG Hemoglobin 11.2 L ABG Oxyhemoglobin ABG Sodium ABG Potassium ABG Chloride ABG Glucose Oxyhemoglobin 93.4 L Carboxyhemoglobin Sodium Potassium Chloride Carbon Dioxide BUN Creatinine Glucose POC Glucose 216 H Hemoglobin A1c Lactic Acid Calcium Ferritin Total Bilirubin AST ALT Lactate Dehydrogenase C-Reactive Protein NT-Pro-B Natriuret Pep Total Protein Albumin Triglycerides Arterial Blood Glucose Arterial Blood Ionized Calcium Urine WBC (Auto) U Epithel Cells (Auto) Urine Creatinine Random Vancomycin Coronavirus (PCR) SARS-CoV-2 IgG Ab 03/13/20 03/13/20 03/13/20 12:09 12:11 17:23 WBC RBC Hgb Hct MCH MCHC RDW Lymph % (Auto) [place] % (Auto) Lymph # (Auto) [place] # (Auto) Seg Neutrophils % Seg Neutrophils # APTT D-Dimer Heparin Anti-Xa Level ABG pH POC ABG pCO2 POC ABG pO2 ABG pO2 ABG HCO3 ABG Base Excess ABG Hemoglobin ABG Oxyhemoglobin ABG Sodium ABG Potassium ABG Chloride ABG Glucose Oxyhemoglobin Carboxyhemoglobin Sodium Potassium 5.1 H Chloride Carbon Dioxide 37 H D BUN Creatinine Glucose 154 H POC Glucose 148 H 217 H Hemoglobin A1c Lactic Acid Calcium Ferritin Total Bilirubin AST 47 H ALT 128 H Lactate Dehydrogenase C-Reactive Protein NT-Pro-B Natriuret Pep Total Protein 5.9 L Albumin 3.0 L Triglycerides Arterial Blood Glucose Arterial Blood Ionized Calcium Urine WBC (Auto) U Epithel Cells (Auto) Urine Creatinine Random Vancomycin Coronavirus (PCR) SARS-CoV-2 IgG Ab 03/14/20 03/14/20 03/14/20 06:15 06:55 09:17 WBC 14.9 H RBC Hgb Hct MCH 25 L MCHC RDW 19.1 H Lymph % (Auto) 9.5 L Rab[place] % (Auto) Lymph # (Auto) [place] # (Auto) 0.9 H Seg Neutrophils % 83.8 H Seg Neutrophils # 12.5 H APTT D-Dimer Heparin Anti-Xa Level ABG pH 7.544 H POC ABG pCO2 POC ABG pO2 ABG pO2 92.8 H ABG HCO3 37.3 H ABG Base Excess 13.5 H ABG Hemoglobin 10.5 L ABG Oxyhemoglobin ABG Sodium ABG Potassium ABG Chloride ABG Glucose Oxyhemoglobin Carboxyhemoglobin Sodium Potassium Chloride Carbon Dioxide BUN Creatinine Glucose POC Glucose 182 H Hemoglobin A1c Lactic Acid Calcium Ferritin Total Bilirubin AST ALT Lactate Dehydrogenase C-Reactive Protein NT-Pro-B Natriuret Pep Total Protein Albumin Triglycerides Arterial Blood Glucose Arterial Blood Ionized Calcium Urine WBC (Auto) U Epithel Cells (Auto) Urine Creatinine Random Vancomycin Coronavirus (PCR) SARS-CoV-2 IgG Ab 03/14/20 03/14/20 03/14/20 09:17 11:43 17:47 WBC RBC Hgb Hct MCH MCHC RDW Lymph % (Auto) [place] % (Auto) Lymph # (Auto) [place] # (Auto) Seg Neutrophils % Seg Neutrophils # APTT D-Dimer Heparin Anti-Xa Level ABG pH POC ABG pCO2 POC ABG pO2 ABG pO2 ABG HCO3 ABG Base Excess ABG Hemoglobin ABG Oxyhemoglobin ABG Sodium ABG Potassium ABG Chloride ABG Glucose Oxyhemoglobin Carboxyhemoglobin Sodium Potassium Chloride Carbon Dioxide 34 H BUN Creatinine 0.5 L Glucose 204 H POC Glucose 283 H 254 H Hemoglobin A1c Lactic Acid Calcium Ferritin Total Bilirubin 2.60 H AST 82 H ALT 152 H Lactate Dehydrogenase C-Reactive Protein NT-Pro-B Natriuret Pep Total Protein 5.7 L Albumin 3.0 L Triglycerides Arterial Blood Glucose Arterial Blood Ionized Calcium Urine WBC (Auto) U Epithel Cells (Auto) Urine Creatinine Random Vancomycin Coronavirus (PCR) SARS-CoV-2 IgG Ab 03/14/20 03/15/20 03/15/20 23:59 03:08 05:52 WBC RBC Hgb Hct MCH MCHC RDW Lymph % (Auto) [place] % (Auto) Lymph # (Auto) [place] # (Auto) Seg Neutrophils % Seg Neutrophils # APTT D-Dimer Heparin Anti-Xa Level ABG pH 7.536 H POC ABG pCO2 POC ABG pO2 ABG pO2 ABG HCO3 ABG Base Excess ABG Hemoglobin 10.7 L ABG Oxyhemoglobin ABG Sodium 135.2 L ABG Potassium ABG Chloride ABG Glucose 317 H Oxyhemoglobin Carboxyhemoglobin Sodium Potassium Chloride Carbon Dioxide BUN Creatinine Glucose POC Glucose 293 H 293 H Hemoglobin A1c Lactic Acid Calcium Ferritin Total Bilirubin AST ALT Lactate Dehydrogenase C-Reactive Protein NT-Pro-B Natriuret Pep Total Protein Albumin Triglycerides Arterial Blood Glucose 317 H Arterial Blood Ionized Calcium 4.5 L Urine WBC (Auto) U Epithel Cells (Auto) Urine Creatinine Random Vancomycin Coronavirus (PCR) SARS-CoV-2 IgG Ab 03/15/20 03/15/20 03/15/20 13:29 17:43 23:26 WBC RBC Hgb Hct MCH MCHC RDW Lymph % (Auto) [place] % (Auto) Lymph # (Auto) [place] # (Auto) Seg Neutrophils % Seg Neutrophils # APTT D-Dimer Heparin Anti-Xa Level ABG pH POC ABG pCO2 POC ABG pO2 ABG pO2 ABG HCO3 ABG Base Excess ABG Hemoglobin ABG Oxyhemoglobin ABG Sodium ABG Potassium ABG Chloride ABG Glucose Oxyhemoglobin Carboxyhemoglobin Sodium Potassium Chloride Carbon Dioxide BUN Creatinine Glucose POC Glucose 299 H 327 H 325 H Hemoglobin A1c Lactic Acid Calcium Ferritin Total Bilirubin AST ALT Lactate Dehydrogenase C-Reactive Protein NT-Pro-B Natriuret Pep Total Protein Albumin Triglycerides Arterial Blood Glucose Arterial Blood Ionized Calcium Urine WBC (Auto) U Epithel Cells (Auto) Urine Creatinine Random Vancomycin Coronavirus (PCR) SARS-CoV-2 IgG Ab 03/16/20 03/16/20 03/16/20 01:28 04:44 05:26 WBC RBC Hgb Hct MCH MCHC RDW Lymph % (Auto) [place] % (Auto) Lymph # (Auto) [place] # (Auto) Seg Neutrophils % Seg Neutrophils # APTT D-Dimer Heparin Anti-Xa Level ABG pH 7.540 H POC ABG pCO2 POC ABG pO2 ABG pO2 ABG HCO3 ABG Base Excess ABG Hemoglobin 10.5 L ABG Oxyhemoglobin ABG Sodium ABG Potassium ABG Chloride ABG Glucose 312 H Oxyhemoglobin Carboxyhemoglobin Sodium Potassium Chloride Carbon Dioxide BUN 18 H Creatinine Glucose 330 H POC Glucose 264 H Hemoglobin A1c Lactic Acid Calcium Ferritin Total Bilirubin AST ALT Lactate Dehydrogenase C-Reactive Protein NT-Pro-B Natriuret Pep Total Protein Albumin Triglycerides Arterial Blood Glucose 312 H Arterial Blood Ionized Calcium Urine WBC (Auto) U Epithel Cells (Auto) Urine Creatinine Random Vancomycin Coronavirus (PCR) SARS-CoV-2 IgG Ab 03/16/20 03/16/20 03/16/20 11:58 17:51 17:54 WBC RBC Hgb Hct MCH MCHC RDW Lymph % (Auto) [place] % (Auto) Lymph # (Auto) [place] # (Auto) Seg Neutrophils % Seg Neutrophils # APTT D-Dimer Heparin Anti-Xa Level ABG pH POC ABG pCO2 58.9 H POC ABG pO2 142.4 H ABG pO2 ABG HCO3 ABG Base Excess ABG Hemoglobin 11.6 L ABG Oxyhemoglobin ABG Sodium 135.9 L ABG Potassium 4.9 H ABG Chloride ABG Glucose 332 H Oxyhemoglobin Carboxyhemoglobin Sodium Potassium Chloride Carbon Dioxide BUN Creatinine Glucose POC Glucose 196 H 285 H Hemoglobin A1c Lactic Acid Calcium Ferritin Total Bilirubin AST ALT Lactate Dehydrogenase C-Reactive Protein NT-Pro-B Natriuret Pep Total Protein Albumin Triglycerides Arterial Blood Glucose 332 H Arterial Blood Ionized Calcium Urine WBC (Auto) U Epithel Cells (Auto) Urine Creatinine Random Vancomycin Coronavirus (PCR) SARS-CoV-2 IgG Ab 03/16/20 03/16/20 03/17/20 17:56 23:43 03:13 WBC RBC Hgb Hct MCH MCHC RDW Lymph % (Auto) [place] % (Auto) Lymph # (Auto) [place] # (Auto) Seg Neutrophils % Seg Neutrophils # APTT D-Dimer Heparin Anti-Xa Level ABG pH POC ABG pCO2 POC ABG pO2 ABG pO2 ABG HCO3 ABG Base Excess ABG Hemoglobin ABG Oxyhemoglobin ABG Sodium ABG Potassium ABG Chloride ABG Glucose Oxyhemoglobin Carboxyhemoglobin Sodium Potassium Chloride Carbon Dioxide BUN Creatinine Glucose POC Glucose 258 H Hemoglobin A1c Lactic Acid Calcium Ferritin Total Bilirubin AST ALT Lactate Dehydrogenase C-Reactive Protein NT-Pro-B Natriuret Pep Total Protein Albumin Triglycerides 252 H Arterial Blood Glucose Arterial Blood Ionized Calcium Urine WBC (Auto) U Epithel Cells (Auto) Urine Creatinine Random Vancomycin Coronavirus (PCR) SARS-CoV-2 IgG Ab Reactive A 03/17/20 03/17/20 03/17/20 05:33 11:12 11:55 WBC RBC Hgb 9.2 L Hct 29.7 L MCH 25 L MCHC RDW 19.9 H Lymph % (Auto) [place] % (Auto) Lymph # (Auto) [place] # (Auto) Seg Neutrophils % Seg Neutrophils # APTT D-Dimer Heparin Anti-Xa Level ABG pH POC ABG pCO2 POC ABG pO2 ABG pO2 ABG HCO3 ABG Base Excess ABG Hemoglobin ABG Oxyhemoglobin ABG Sodium ABG Potassium ABG Chloride ABG Glucose Oxyhemoglobin Carboxyhemoglobin Sodium Potassium Chloride Carbon Dioxide BUN Creatinine Glucose POC Glucose 157 H 112 H Hemoglobin A1c Lactic Acid Calcium Ferritin Total Bilirubin AST ALT Lactate Dehydrogenase C-Reactive Protein NT-Pro-B Natriuret Pep Total Protein Albumin Triglycerides Arterial Blood Glucose Arterial Blood Ionized Calcium Urine WBC (Auto) U Epithel Cells (Auto) Urine Creatinine Random Vancomycin Coronavirus (PCR) SARS-CoV-2 IgG Ab 03/17/20 03/17/20 03/17/20 11:55 11:55 17:20 WBC RBC Hgb Hct MCH MCHC RDW Lymph % (Auto) [place] % (Auto) Lymph # (Auto) [place] # (Auto) Seg Neutrophils % Seg Neutrophils # APTT D-Dimer Heparin Anti-Xa Level ABG pH POC ABG pCO2 POC ABG pO2 ABG pO2 ABG HCO3 ABG Base Excess ABG Hemoglobin 10.2 L ABG Oxyhemoglobin ABG Sodium ABG Potassium ABG Chloride ABG Glucose 137 H Oxyhemoglobin Carboxyhemoglobin Sodium Potassium Chloride Carbon Dioxide BUN 21 H Creatinine 0.5 L Glucose 118 H POC Glucose 178 H Hemoglobin A1c Lactic Acid Calcium Ferritin Total Bilirubin AST ALT Lactate Dehydrogenase C-Reactive Protein NT-Pro-B Natriuret Pep Total Protein Albumin Triglycerides Arterial Blood Glucose 137 H Arterial Blood Ionized Calcium Urine WBC (Auto) U Epithel Cells (Auto) Urine Creatinine Random Vancomycin Coronavirus (PCR) SARS-CoV-2 IgG Ab 03/18/20 03/18/20 03/18/20 00:16 03:33 05:48 WBC RBC Hgb Hct MCH MCHC RDW Lymph % (Auto) [place] % (Auto) Lymph # (Auto) [place] # (Auto) Seg Neutrophils % Seg Neutrophils # APTT D-Dimer Heparin Anti-Xa Level ABG pH 7.568 H POC ABG pCO2 30.6 L POC ABG pO2 167.6 H ABG pO2 ABG HCO3 ABG Base Excess ABG Hemoglobin 10.9 L ABG Oxyhemoglobin ABG Sodium 133.8 L ABG Potassium ABG Chloride ABG Glucose 125 H Oxyhemoglobin Carboxyhemoglobin Sodium Potassium Chloride Carbon Dioxide BUN Creatinine Glucose POC Glucose 119 H 114 H Hemoglobin A1c Lactic Acid Calcium Ferritin Total Bilirubin AST ALT Lactate Dehydrogenase C-Reactive Protein NT-Pro-B Natriuret Pep Total Protein Albumin Triglycerides Arterial Blood Glucose 125 H Arterial Blood Ionized Calcium Urine WBC (Auto) U Epithel Cells (Auto) Urine Creatinine Random Vancomycin Coronavirus (PCR) SARS-CoV-2 IgG Ab 03/18/20 03/18/20 03/18/20 11:46 17:11 23:18 WBC RBC Hgb Hct MCH MCHC RDW Lymph % (Auto) [place] % (Auto) Lymph # (Auto) [place] # (Auto) Seg Neutrophils % Seg Neutrophils # APTT D-Dimer Heparin Anti-Xa Level ABG pH POC ABG pCO2 POC ABG pO2 ABG pO2 ABG HCO3 ABG Base Excess ABG Hemoglobin ABG Oxyhemoglobin ABG Sodium ABG Potassium ABG Chloride ABG Glucose Oxyhemoglobin Carboxyhemoglobin Sodium Potassium Chloride Carbon Dioxide BUN Creatinine Glucose POC Glucose 165 H 155 H 142 H Hemoglobin A1c Lactic Acid Calcium Ferritin Total Bilirubin AST ALT Lactate Dehydrogenase C-Reactive Protein NT-Pro-B Natriuret Pep Total Protein Albumin Triglycerides Arterial Blood Glucose Arterial Blood Ionized Calcium Urine WBC (Auto) U Epithel Cells (Auto) Urine Creatinine Random Vancomycin Coronavirus (PCR) SARS-CoV-2 IgG Ab 03/19/20 03/19/20 03/19/20 04:41 05:03 10:47 WBC RBC Hgb Hct MCH MCHC RDW Lymph % (Auto) Rab[place] % (Auto) Lymph # (Auto) Rabun # (Auto) Seg Neutrophils % Seg Neutrophils # APTT D-Dimer Heparin Anti-Xa Level ABG pH 7.041 L 7.231 L POC ABG pCO2 100.4 H 67.5 H POC ABG pO2 142.4 H ABG pO2 ABG HCO3 ABG Base Excess ABG Hemoglobin 11.2 L 9.7 L ABG Oxyhemoglobin ABG Sodium 135.8 L 134.8 L ABG Potassium 5.3 H 4.8 H ABG Chloride ABG Glucose 150 H 160 H Oxyhemoglobin Carboxyhemoglobin 1.6 H Sodium Potassium Chloride Carbon Dioxide BUN Creatinine Glucose POC Glucose 123 H Hemoglobin A1c Lactic Acid Calcium Ferritin Total Bilirubin AST ALT Lactate Dehydrogenase C-Reactive Protein NT-Pro-B Natriuret Pep Total Protein Albumin Triglycerides Arterial Blood Glucose 150 H 160 H Arterial Blood Ionized Calcium Urine WBC (Auto) U Epithel Cells (Auto) Urine Creatinine Random Vancomycin Coronavirus (PCR) SARS-CoV-2 IgG Ab 03/19/20 03/19/20 03/19/20 11:41 14:00 14:00 WBC RBC Hgb 10.0 L Hct MCH 26 L MCHC RDW 20.5 H Lymph % (Auto) Rabun % (Auto) Lymph # (Auto) Rab[place] # (Auto) Seg Neutrophils % Seg Neutrophils # APTT 22.4 L D-Dimer Heparin Anti-Xa Level ABG pH POC ABG pCO2 POC ABG pO2 ABG pO2 ABG HCO3 ABG Base Excess ABG Hemoglobin ABG Oxyhemoglobin ABG Sodium ABG Potassium ABG Chloride ABG Glucose Oxyhemoglobin Carboxyhemoglobin Sodium Potassium Chloride Carbon Dioxide BUN Creatinine Glucose POC Glucose 153 H Hemoglobin A1c Lactic Acid Calcium Ferritin Total Bilirubin AST ALT Lactate Dehydrogenase C-Reactive Protein NT-Pro-B Natriuret Pep Total Protein Albumin Triglycerides Arterial Blood Glucose Arterial Blood Ionized Calcium Urine WBC (Auto) U Epithel Cells (Auto) Urine Creatinine Random Vancomycin Coronavirus (PCR) SARS-CoV-2 IgG Ab 03/19/20 03/19/20 03/19/20 14:00 14:40 21:29 WBC RBC Hgb Hct MCH MCHC RDW Lymph % (Auto) Rab[place] % (Auto) Lymph # (Auto) Rab[place] # (Auto) Seg Neutrophils % Seg Neutrophils # APTT D-Dimer Heparin Anti-Xa Level ABG pH 7.168 L POC ABG pCO2 79.0 H POC ABG pO2 56.5 L 61.2 L ABG pO2 ABG HCO3 ABG Base Excess ABG Hemoglobin 10.8 L 10.0 L ABG Oxyhemoglobin 82.6 L 89.5 L ABG Sodium 135.6 L ABG Potassium ABG Chloride ABG Glucose 214 H 99 H Oxyhemoglobin Carboxyhemoglobin 2.0 H Sodium Potassium Chloride Carbon Dioxide BUN 42 H Creatinine 2.5 H D Glucose 235 H POC Glucose Hemoglobin A1c Lactic Acid Calcium Ferritin Total Bilirubin AST ALT Lactate Dehydrogenase C-Reactive Protein NT-Pro-B Natriuret Pep Total Protein Albumin Triglycerides Arterial Blood Glucose 214 H 99 H Arterial Blood Ionized Calcium Urine WBC (Auto) U Epithel Cells (Auto) Urine Creatinine Random Vancomycin Coronavirus (PCR) SARS-CoV-2 IgG Ab 03/19/20 03/20/20 03/20/20 21:56 05:00 05:00 WBC RBC Hgb Hct MCH MCHC RDW Lymph % (Auto) Rab[place] % (Auto) Lymph # (Auto) [place] # (Auto) Seg Neutrophils % Seg Neutrophils # APTT D-Dimer Heparin Anti-Xa Level 0.26 L ABG pH POC ABG pCO2 POC ABG pO2 ABG pO2 ABG HCO3 ABG Base Excess ABG Hemoglobin ABG Oxyhemoglobin ABG Sodium ABG Potassium ABG Chloride ABG Glucose Oxyhemoglobin Carboxyhemoglobin Sodium Potassium Chloride Carbon Dioxide BUN 48 H Creatinine 2.2 H Glucose 138 H POC Glucose Hemoglobin A1c Lactic Acid Calcium Ferritin Total Bilirubin AST ALT Lactate Dehydrogenase C-Reactive Protein NT-Pro-B Natriuret Pep Total Protein Albumin Triglycerides Arterial Blood Glucose Arterial Blood Ionized Calcium Urine WBC (Auto) U Epithel Cells (Auto) Urine Creatinine Random Vancomycin 54.2 H Coronavirus (PCR) SARS-CoV-2 IgG Ab 03/20/20 03/20/20 03/20/20 05:16 07:15 11:52 WBC RBC Hgb Hct MCH MCHC RDW Lymph % (Auto) Rab[place] % (Auto) Lymph # (Auto) [place] # (Auto) Seg Neutrophils % Seg Neutrophils # APTT D-Dimer Heparin Anti-Xa Level 0.10 L ABG pH POC ABG pCO2 POC ABG pO2 ABG pO2 ABG HCO3 ABG Base Excess ABG Hemoglobin ABG Oxyhemoglobin ABG Sodium ABG Potassium ABG Chloride ABG Glucose Oxyhemoglobin Carboxyhemoglobin Sodium Potassium Chloride Carbon Dioxide BUN Creatinine Glucose POC Glucose 128 H 145 H Hemoglobin A1c Lactic Acid Calcium Ferritin Total Bilirubin AST ALT Lactate Dehydrogenase C-Reactive Protein NT-Pro-B Natriuret Pep Total Protein Albumin Triglycerides Arterial Blood Glucose Arterial Blood Ionized Calcium Urine WBC (Auto) U Epithel Cells (Auto) Urine Creatinine Random Vancomycin Coronavirus (PCR) SARS-CoV-2 IgG Ab 03/20/20 03/20/20 03/20/20 13:44 14:55 17:04 WBC RBC Hgb Hct MCH MCHC RDW Lymph % (Auto) Rab[place] % (Auto) Lymph # (Auto) [place] # (Auto) Seg Neutrophils % Seg Neutrophils # APTT D-Dimer Heparin Anti-Xa Level 0.79 H ABG pH POC ABG pCO2 POC ABG pO2 ABG pO2 ABG HCO3 ABG Base Excess ABG Hemoglobin ABG Oxyhemoglobin ABG Sodium ABG Potassium ABG Chloride ABG Glucose Oxyhemoglobin Carboxyhemoglobin Sodium Potassium Chloride Carbon Dioxide BUN Creatinine Glucose POC Glucose 179 H Hemoglobin A1c Lactic Acid Calcium Ferritin Total Bilirubin AST ALT Lactate Dehydrogenase C-Reactive Protein NT-Pro-B Natriuret Pep Total Protein Albumin Triglycerides Arterial Blood Glucose Arterial Blood Ionized Calcium Urine WBC (Auto) U Epithel Cells (Auto) Urine Creatinine 137.9 H Random Vancomycin Coronavirus (PCR) SARS-CoV-2 IgG Ab 03/20/20 03/21/20 03/21/20 23:23 05:29 08:37 WBC RBC Hgb Hct MCH MCHC RDW Lymph % (Auto) Rab[place] % (Auto) Lymph # (Auto) [place] # (Auto) Seg Neutrophils % Seg Neutrophils # APTT D-Dimer Heparin Anti-Xa Level ABG pH POC ABG pCO2 POC ABG pO2 210.3 H ABG pO2 ABG HCO3 ABG Base Excess ABG Hemoglobin 9.5 L ABG Oxyhemoglobin ABG Sodium 132.1 L ABG Potassium ABG Chloride ABG Glucose 179 H Oxyhemoglobin Carboxyhemoglobin Sodium Potassium Chloride Carbon Dioxide BUN Creatinine Glucose POC Glucose 168 H 157 H Hemoglobin A1c Lactic Acid Calcium Ferritin Total Bilirubin AST ALT Lactate Dehydrogenase C-Reactive Protein NT-Pro-B Natriuret Pep Total Protein Albumin Triglycerides Arterial Blood Glucose 179 H Arterial Blood Ionized Calcium 4.5 L Urine WBC (Auto) U Epithel Cells (Auto) Urine Creatinine Random Vancomycin Coronavirus (PCR) SARS-CoV-2 IgG Ab 03/21/20 03/21/20 03/21/20 12:01 12:20 17:12 WBC RBC Hgb Hct MCH MCHC RDW Lymph % (Auto) [place] % (Auto) Lymph # (Auto) [place] # (Auto) Seg Neutrophils % Seg Neutrophils # APTT D-Dimer Heparin Anti-Xa Level ABG pH POC ABG pCO2 POC ABG pO2 ABG pO2 ABG HCO3 ABG Base Excess ABG Hemoglobin ABG Oxyhemoglobin ABG Sodium ABG Potassium ABG Chloride ABG Glucose Oxyhemoglobin Carboxyhemoglobin Sodium 133 L Potassium Chloride Carbon Dioxide 19 L BUN 56 H Creatinine 2.3 H Glucose 157 H POC Glucose 171 H 215 H Hemoglobin A1c Lactic Acid Calcium 6.8 L D Ferritin Total Bilirubin AST 54 H ALT 84 H Lactate Dehydrogenase C-Reactive Protein NT-Pro-B Natriuret Pep Total Protein 4.4 L Albumin 1.7 L Triglycerides Arterial Blood Glucose Arterial Blood Ionized Calcium Urine WBC (Auto) U Epithel Cells (Auto) Urine Creatinine Random Vancomycin Coronavirus (PCR) SARS-CoV-2 IgG Ab 03/21/20 03/22/20 03/22/20 23:14 00:42 02:57 WBC RBC Hgb 9.3 L Hct 30.2 L MCH MCHC RDW Lymph % (Auto) [place] % (Auto) Lymph # (Auto) [place] # (Auto) Seg Neutrophils % Seg Neutrophils # APTT D-Dimer Heparin Anti-Xa Level ABG pH POC ABG pCO2 POC ABG pO2 141.4 H ABG pO2 ABG HCO3 ABG Base Excess ABG Hemoglobin 9.4 L ABG Oxyhemoglobin ABG Sodium 132.3 L ABG Potassium 4.6 H ABG Chloride ABG Glucose 217 H Oxyhemoglobin Carboxyhemoglobin Sodium Potassium Chloride Carbon Dioxide BUN Creatinine Glucose POC Glucose 191 H Hemoglobin A1c Lactic Acid Calcium Ferritin Total Bilirubin AST ALT Lactate Dehydrogenase C-Reactive Protein NT-Pro-B Natriuret Pep Total Protein Albumin Triglycerides Arterial Blood Glucose 217 H Arterial Blood Ionized Calcium Urine WBC (Auto) U Epithel Cells (Auto) Urine Creatinine Random Vancomycin Coronavirus (PCR) SARS-CoV-2 IgG Ab 03/22/20 03/22/20 03/22/20 05:13 08:00 08:00 WBC RBC 3.34 L Hgb 8.4 L Hct 26.8 L MCH 25 L MCHC RDW 20.2 H Lymph % (Auto) 7.7 L Rabun % (Auto) Lymph # (Auto) 0.7 L Rab[place] # (Auto) Seg Neutrophils % 84.0 H Seg Neutrophils # 7.8 H APTT D-Dimer Heparin Anti-Xa Level ABG pH POC ABG pCO2 POC ABG pO2 ABG pO2 ABG HCO3 ABG Base Excess ABG Hemoglobin ABG Oxyhemoglobin ABG Sodium ABG Potassium ABG Chloride ABG Glucose Oxyhemoglobin Carboxyhemoglobin Sodium 134 L Potassium Chloride Carbon Dioxide BUN 64 H Creatinine 2.3 H Glucose 207 H POC Glucose 201 H Hemoglobin A1c Lactic Acid Calcium Ferritin Total Bilirubin AST ALT Lactate Dehydrogenase C-Reactive Protein NT-Pro-B Natriuret Pep Total Protein Albumin Triglycerides Arterial Blood Glucose Arterial Blood Ionized Calcium Urine WBC (Auto) U Epithel Cells (Auto) Urine Creatinine Random Vancomycin Coronavirus (PCR) SARS-CoV-2 IgG Ab 03/22/20 03/22/20 03/22/20 11:17 15:00 16:53 WBC RBC Hgb Hct MCH MCHC RDW Lymph % (Auto) Rab[place] % (Auto) Lymph # (Auto) [place] # (Auto) Seg Neutrophils % Seg Neutrophils # APTT D-Dimer Heparin Anti-Xa Level ABG pH POC ABG pCO2 POC ABG pO2 ABG pO2 ABG HCO3 ABG Base Excess ABG Hemoglobin ABG Oxyhemoglobin ABG Sodium ABG Potassium ABG Chloride ABG Glucose Oxyhemoglobin Carboxyhemoglobin Sodium Potassium Chloride Carbon Dioxide BUN Creatinine Glucose POC Glucose 198 H 182 H Hemoglobin A1c Lactic Acid Calcium Ferritin Total Bilirubin AST ALT Lactate Dehydrogenase C-Reactive Protein NT-Pro-B Natriuret Pep Total Protein Albumin Triglycerides Arterial Blood Glucose Arterial Blood Ionized Calcium Urine WBC (Auto) > 182.0 H U Epithel Cells (Auto) 17.0 H Urine Creatinine Random Vancomycin Coronavirus (PCR) SARS-CoV-2 IgG Ab 03/22/20 03/22/20 03/23/20 23:17 23:27 05:30 WBC RBC Hgb Hct MCH MCHC RDW Lymph % (Auto) Rab[place] % (Auto) Lymph # (Auto) [place] # (Auto) Seg Neutrophils % Seg Neutrophils # APTT D-Dimer Heparin Anti-Xa Level 0.17 L ABG pH POC ABG pCO2 POC ABG pO2 ABG pO2 ABG HCO3 ABG Base Excess ABG Hemoglobin ABG Oxyhemoglobin ABG Sodium ABG Potassium ABG Chloride ABG Glucose Oxyhemoglobin Carboxyhemoglobin Sodium Potassium Chloride Carbon Dioxide BUN Creatinine Glucose POC Glucose 235 H 283 H Hemoglobin A1c Lactic Acid Calcium Ferritin Total Bilirubin AST ALT Lactate Dehydrogenase C-Reactive Protein NT-Pro-B Natriuret Pep Total Protein Albumin Triglycerides Arterial Blood Glucose Arterial Blood Ionized Calcium Urine WBC (Auto) U Epithel Cells (Auto) Urine Creatinine Random Vancomycin Coronavirus (PCR) SARS-CoV-2 IgG Ab 03/23/20 03/23/20 03/23/20 06:00 09:30 09:30 WBC RBC Hgb 8.8 L Hct 28.4 L MCH MCHC RDW Lymph % (Auto) Rab[place] % (Auto) Lymph # (Auto) [place] # (Auto) Seg Neutrophils % Seg Neutrophils # APTT D-Dimer 1509.37 H Heparin Anti-Xa Level ABG pH POC ABG pCO2 POC ABG pO2 ABG pO2 ABG HCO3 ABG Base Excess ABG Hemoglobin ABG Oxyhemoglobin ABG Sodium ABG Potassium ABG Chloride ABG Glucose Oxyhemoglobin Carboxyhemoglobin Sodium Potassium Chloride Carbon Dioxide BUN Creatinine Glucose POC Glucose Hemoglobin A1c Lactic Acid Calcium Ferritin 284.9 H Total Bilirubin AST ALT Lactate Dehydrogenase C-Reactive Protein NT-Pro-B Natriuret Pep Total Protein Albumin Triglycerides Arterial Blood Glucose Arterial Blood Ionized Calcium Urine WBC (Auto) U Epithel Cells (Auto) Urine Creatinine Random Vancomycin Coronavirus (PCR) SARS-CoV-2 IgG Ab 03/23/20 03/23/20 03/23/20 09:30 11:54 Unknown WBC RBC Hgb Hct MCH MCHC RDW Lymph % (Auto) Rab[place] % (Auto) Lymph # (Auto) [place] # (Auto) Seg Neutrophils % Seg Neutrophils # APTT D-Dimer Heparin Anti-Xa Level ABG pH POC ABG pCO2 POC ABG pO2 81.6 L ABG pO2 ABG HCO3 ABG Base Excess ABG Hemoglobin 10.1 L ABG Oxyhemoglobin ABG Sodium ABG Potassium 5.1 H ABG Chloride 109.0 H ABG Glucose 295 H Oxyhemoglobin Carboxyhemoglobin Sodium Potassium 5.2 H Chloride 110.1 H Carbon Dioxide BUN 57 H Creatinine 1.4 H Glucose 318 H POC Glucose 287 H Hemoglobin A1c Lactic Acid Calcium Ferritin Total Bilirubin AST ALT Lactate Dehydrogenase 414 H C-Reactive Protein 26.30 H NT-Pro-B Natriuret Pep Total Protein Albumin Triglycerides Arterial Blood Glucose 295 H Arterial Blood Ionized Calcium Urine WBC (Auto) U Epithel Cells (Auto) Urine Creatinine Random Vancomycin Coronavirus (PCR) SARS-CoV-[address] scan - chest: other (CT Brain with progressive edema) Allied health notes reviewed: nursing
--- NOTE | 2020-03-23 13:51 | Progress Note ---
Assessment and Plan # Acute Kidney Injury: multiple reasons for MICHELLE, likely mostly due to tubular injury from cardiac arrest and suspect hypoperfusion injury on 03/19, also with contrast use, COVID-19, and supratherapeutic vancomycin. Remains non-oliguric at this time. Prior baseline creatinine 0.5. Creatinine improved from 2.3->1.4 - agree with supportive measures for now, BP support as needed, IV antibiotics, etc. Maintain euvolemia as able - strict Is/Os - sending serologies, renal imaging to ensure no glomerular or obstructive causes - urinalysis reviewed reviewed urine sodium/creatinine - avoid nephrotoxins, would hold vancomycin given last level >50 - renally dose meds - no immediate HD indication given non-oliguria, will follow - reviewed neurology note, note poor prognosis and low likelihood of recovery # Acute hypoxemic respiratory failure,sepsis: due to COVID-19 and staph PNA - care per ICU, ID for COVID # status post cardiac arrest on 03/13 and 03/19: appreciate ICU, cardiology input # B/l PE: on heparin drip # HTN: holding antihypertensives, currently on low dose pressor # DM: care per primary # Obesity hypoventilation syndrome, pulmonary hypertension Subjective Date of service: 03/23/20 Principal diagnosis: Cardiac arrest; Ac. hypoxemic resp failure; COVID 19 infxn; Pulm HTN; OHS Interval history: No acute changes noted. Remains intubated, Fio2 50% Objective - Exam Narrative Exam: Patient is seen through ICU window, not directly examined due to COVID-19 pandemic conservation strategy. Noted to be PRBC 60% FiO2, on heparin gtt, Levo. - Vital Signs Vital signs: Vital Signs - 12hr 03/23/20 03/23/20 03/23/20 01:46 02:00 02:16 Temperature Pulse Rate 106 H 105 H 105 H Pulse Rate [ From Monitor] Respiratory 25 H 25 H 25 H Rate Blood Pressure 151/86 148/84 152/80 O2 Sat by Pulse 97 97 96 Oximetry 03/23/20 03/23/20 03/23/20 02:30 02:46 03:00 Temperature Pulse Rate 102 H 108 H 108 H Pulse Rate [ From Monitor] Respiratory 25 H 25 H 25 H Rate Blood Pressure 131/58 149/75 148/70 O2 Sat by Pulse 96 96 96 Oximetry 1203/23/20 03/23/20 03:12 03:16 03:30 Temperature 98.9 F Pulse Rate 108 H 108 H Pulse Rate [ From Monitor] Respiratory 25 H 24 Rate Blood Pressure 147/76 146/83 O2 Sat by Pulse 97 97 Oximetry 03/23/20 03/23/20 03/23/20 03:46 04:00 04:16 Temperature Pulse Rate 107 H 106 H 107 H Pulse Rate [ 86 From Monitor] Respiratory 25 H 25 H 25 H Rate Blood Pressure 154/83 149/84 151/84 O2 Sat by Pulse 97 97 97 Oximetry 03/23/20 03/23/20 03/23/20 04:19 04:30 04:46 Temperature Pulse Rate 107 H 106 H 107 H Pulse Rate [ From Monitor] Respiratory 25 H 25 H Rate Blood Pressure 150/82 149/82 152/79 O2 Sat by Pulse 97 97 97 Oximetry 03/23/20 03/23/20 03/23/20 05:00 05:16 05:30 Temperature Pulse Rate 107 H 108 H 107 H Pulse Rate [ From Monitor] Respiratory 25 H 25 H 25 H Rate Blood Pressure 138/75 143/77 148/78 O2 Sat by Pulse 97 97 97 Oximetry 03/23/20 03/23/20 03/23/20 05:46 06:00 06:16 Temperature Pulse Rate 108 H 108 H 107 H Pulse Rate [ From Monitor] Respiratory 25 H 25 H 25 H Rate Blood Pressure 152/75 141/81 152/74 O2 Sat by Pulse 97 98 98 Oximetry 03/23/20 03/23/20 03/23/20 06:30 06:46 07:00 Temperature Pulse Rate 106 H 108 H 108 H Pulse Rate [ From Monitor] Respiratory 25 H 25 H 25 H Rate Blood Pressure 142/77 153/78 158/80 O2 Sat by Pulse 98 98 98 Oximetry 03/23/20 03/23/20 03/23/20 07:16 07:24 07:30 Temperature Pulse Rate 107 H 107 H 107 H Pulse Rate [ From Monitor] Respiratory 25 H 25 H Rate Blood Pressure 157/82 157/83 158/85 O2 Sat by Pulse 98 97 97 Oximetry 03/23/20 03/23/20 03/23/20 07:46 08:00 08:16 Temperature Pulse Rate 107 H 107 H 108 H Pulse Rate [ 86 From Monitor] Respiratory 25 H 25 H 25 H Rate Blood Pressure 162/85 167/87 169/88 O2 Sat by Pulse 97 97 97 Oximetry 03/23/20 03/23/20 03/23/20 08:30 08:46 09:00 Temperature Pulse Rate 108 H 108 H 109 H Pulse Rate [ From Monitor] Respiratory 25 H 25 H 25 H Rate Blood Pressure 161/90 163/84 163/86 O2 Sat by Pulse 97 97 96 Oximetry 03/23/20 03/23/20 03/23/20 09:16 09:30 09:46 Temperature Pulse Rate 110 H 110 H 112 H Pulse Rate [ From Monitor] Respiratory 25 H 25 H 25 H Rate Blood Pressure 160/84 160/78 163/86 O2 Sat by Pulse 96 96 97 Oximetry 03/23/20 03/23/20 03/23/20 10:00 10:16 10:30 Temperature Pulse Rate 111 H 110 H 108 H Pulse Rate [ From Monitor] Respiratory 25 H 25 H 25 H Rate Blood Pressure 160/86 163/88 168/84 O2 Sat by Pulse 97 97 97 Oximetry 03/23/20 03/23/20 03/23/20 10:46 11:00 11:59 Temperature Pulse Rate 110 H 111 H 111 H Pulse Rate [ From Monitor] Respiratory 25 H 25 H Rate Blood Pressure 176/94 162/90 167/92 O2 Sat by Pulse 97 97 97 Oximetry - Lab 03/23/20 06:00 03/23/20 09:30 Most recent lab results ABG pH 7.343 (7.320-7.450) 03/23/20 Unknown ABG pCO2 44.2 mm Hg 03/14/20 06:15 ABG pO2 92.8 mm Hg (80.0-90.0) H 03/14/20 06:15 ABG HCO3 37.3 mmol/L (20.0-26.0) H 03/14/20 06:15 ABG O2 Saturation 97.6 % (95.0-99.0) 03/14/20 06:15 Calcium 9.5 mg/dL (8.4-10.2) 03/23/20 09:30 Urine Creatinine 137.9 mg/dL (0.1-20.0) H 03/20/20 13:44 Urine Sodium 27 mmol/L 03/20/20 13:44 Medications & Allergies - Medications Allergies/Adverse Reactions: Allergies lorazepam [From Ativan] Adverse Reaction (Verified 03/09/20 07:27) Unknown naloxone [From Narcan] Adverse Reaction (Verified 03/09/20 07:28) Unknown Home Medications: Home Medications Medication Instructions Recorded Confirmed Last Taken Type Citalopram Hydrobromide 20 mg PO QHS 03/09/20 03/09/20 Unknown History [Citalopram HBr] Divalproex ER [DepaKOTE ER] 1,000 mg PO QHS 03/09/20 03/09/20 Unknown History Furosemide [Lasix] 20 mg PO QDAY 03/09/20 03/09/20 Unknown History Losartan [Cozaar] 100 mg PO QDAY 03/09/20 03/09/20 Unknown History NIFEdipine [Nifedipine ER] 60 mg PO QDAY 03/09/20 03/09/20 Unknown History carvediloL [Coreg] 6.25 mg PO BID 03/09/20 03/09/20 Unknown History hydrOXYzine HCL [Atarax] 10 mg PO QHS 03/09/20 03/09/20 Unknown History risperiDONE [RisperDAL] 0.5 mg PO BID 03/09/20 03/09/20 Unknown History Active Medications: Generic Name Dose Route Start Last Admin Trade Name Freq PRN Reason Stop Dose Admin Acetaminophen 650 mg 03/13/20 16:54 03/14/20 09:36 Tylenol FEEDTUBE 650 mg Q6H PRN Administration Pain, Mild (1-3) Lipase/Protease/Amylase 1 each 03/14/20 08:36 Pancrecindy [place] 10,500 Unit FEEDTUBE PRN PRN For Clogged Feeding Tube Dexamethasone 4 mg 03/22/20 15:00 03/23/20 05:50 Decadron IV 4 mg Q8HR KIM Administration Fentanyl 50 mcg 03/13/20 09:36 03/17/20 20:23 Sublimaze IV 50 mcg Q10MIN PRN Administration ANALGESIA Glycopyrrolate 1 mg 03/19/20 20:00 03/23/20 08:25 Glycopyrrolate PO 1 mg TID KIM Administration Hydralazine HCl 10 mg 03/09/20 10:49 Apresoline IV Q4HR PRN Hypertension Hydrophilic Ointment 1 applic 03/13/20 07:00 Vaseline Lip Therapy TP Q2HR PRN Dry Lips Heparin Sodium/Sodium Chloride 25,000 unit in 500 mls @ 30 mls/hr 03/19/20 14:00 03/23/20 07:36 Heparin/ 0.45% Nacl-25,000 Unit/500 Ml IV 2,050 units/hr TITR KIM 41 mls/hr Administration Protocol 1,500 UNITS/HR Norepinephrine 4 mg in 250 mls @ 7.5 mls/hr 03/19/20 14:00 03/22/20 20:38 Levophed Drip 4 Mg/Ns 250 Ml IV 2 mcg/min TITR KIM 7.5 mls/hr Administration Protocol 2 MCG/MIN Vasopressin 20 unit/ Sodium 101 mls @ 9.09 mls/hr 03/21/20 23:45 03/22/20 01:36 Chloride IV 0 units/min TITR KIM 0 mls/hr Titration Protocol 0.03 UNITS/MIN Cefepime HCl 2 gm in 100 mls @ 200 mls/hr 03/23/20 10:00 03/23/20 10:25 Cefepime/Ns 2 Gm/100 Ml IV 200 mls/hr Q12HR KIM Administration Protocol Vancomycin HCl 2,000 mg/ 540 mls @ 250 mls/hr 03/23/20 10:00 Sodium Chloride IV 03/23/20 14:00 ONCE KIM Insulin Glargine 35 units 03/21/20 22:00 03/22/20 21:18 Lantus SUB-Q 35 units QHS KIM Administration Insulin Human Lispro 0 unit 03/13/20 18:00 03/23/20 06:00 Humalog SUB-Q 6 unit Q6H KIM Administration Protocol Lansoprazole 30 mg 03/15/20 10:00 03/23/20 10:25 Prevacid Solutab FEEDTUBE 30 mg QDAY KIM Administration Multi-Ingred Cream/Lotion/Oil/Oint 1 applic 03/13/20 07:00 Artificial Tears Ophth Oint OU Q4HR PRN Dry Eye(s) Polyethylene Glycol 17 gm 03/15/20 13:00 03/23/20 10:26 Miralax 3350 PO 17 gm QDAY KIM Administration Scopolamine 1 each 03/19/20 16:00 03/22/20 10:01 Transderm-Scop TD 1 each Q3D KIM Administration Senna/Docusate Sodium 2 tab 03/15/20 13:00 03/23/20 10:25 Senokot S PO 2 tab BID KIM Administration Simple Syrup 15 ml 03/14/20 08:36 Simple Syrup FEEDTUBE PRN PRN Hypoglycemia Simple Syrup 30 ml 03/14/20 08:36 Simple Syrup FEEDTUBE PRN PRN Hypoglycemia Sodium Bicarbonate 325 mg 03/14/20 08:36 Sodium Bicarbonate FEEDTUBE PRN PRN For Clogged Feeding Tube
--- NOTE | 2020-03-23 17:18 | Cat Scan Report ---
CT BRAIN: 03/23/2020 INDICATION / CLINICAL INFORMATION: CVA. COMPARISON: 03/22/2020 FINDINGS: BRAIN/INTRACRANIAL STRUCTURES: Unenhanced CT images of the brain were obtained and compared to the pr evious exam from one day earlier. Image quality is somewhat limited due to body habitus related signa l is limitations. However, there appears to have been progression in the overall loss of jimenez-white differentiation, ve ntricular and sulcal definition, visualization of the ambient cisterns. The overall appearance is con sistent with progressive significant diffuse anoxic injury/cerebral edema. There is no evidence of hemorrhage. There are no abnormal extra-axial fluid collections. Note is made of extensive opacification of the paranasal sinuses. Portion of the nasogastric tube can be visualized. IMPRESSION: Findings suggest progression of diffuse cerebral edema. No evidence of hemorrhage. All CT scans at this location are performed using dose reduction to ALARA by means of automated expos ure control. Signer Name: Regan Jefferson MD Signed: 03/23/2020 5:14 PM Workstation Name: [id number]
--- NOTE | 2020-03-23 19:19 | Progress Note ---
Assessment and Plan --Severe anoxic brain injury likely developed following 2nd cardiac arrest CT head with brain herniation, neurology following planned for repeat CT today --Acute respiratory failure due to COVID-19 and staph MRSA PNA patient now intubated since 03/13 following a cardiac arrest self extubated on 03/19 then reintubated Critical care following, continue scheduled breathing treatment, IV steroid Wean off from vent as tolerated --Status post cardiac arrest x2 on 03/13 and 03/19 Patient currently intubated, 2D echo showed preserved EF with right ventricular pressure 68 --B/l PE, initiated on heparin drip --Novel Coronavirus infection Coronavirus protocol: Infectious disease service consulted, contact precautions, isolation precaution, steroid therapy, follow inflammatory markers Diagnosed over 2 weeks ago, as such not a candidate for remdesivir. Given that her ferritin is normal, less likely to be in cytokine storm. -Patient also positive for COVID-19 antibody -no scope for convalescent plasma therapy -- Pneumonia with MRSA and COVID Pneumonia protocol: Supplemental oxygen, IV antibiotic therapy, pulse oximetry, blood culture. -s/p cefepime 2 g every 8 hours given elevated white count, lactic acid and procalcitonin -Continue vancomycin as sputum culture growing MRSA for 7 days -Patient was diagnosed with COVID-19 2 weeks ago- not a candidate for remdesivir --Sepsis, due to COVID-19 and MRSA pneumonia Likely present on admission, continue antibiotics per ID, follow inflammatory markers -- Hypertension Monitor blood pressure every shift, continue medical management -- Diabetes type 2 Tube feeding diet, sliding scale insulin therapy, Accu-Chek, hypoglycemia protocol -- Obesity hypoventilation syndrome BMI 78.7, monitor weight pulse oximetry, nebulizer therapy, supplemental oxygen, patient now intubated outpatient pulmonary follow-up for sleep study when clinically stable, need recommendation on balanced diet, increase physical activity at discharge -- Pulmonary hypertension cont Supportive care, outpatient pulmonology follow-up for sleep study. And also need evaluation for vasodilator therapy. --hyperkalemia, follow BMP, give iv sodium bicarbonate as needed, monitor for bradycardia -- DVT prophylaxis SCD to bilateral lower extremities while in bed, prophylactic anticoagulation. The high probability of a clinically significant, sudden or life threatening deterioration of the [pulmonary, cardiac, renal, neuro] system(s) required my full and direct attention, intervention and personal management. The aggregate critical care time was [90] minutes. This time is in addition to time spent performing reported procedures but includes the following: [x] Data Review and interpretation [x] Patient assessment and monitoring of vital signs [x] Documentation [x] Medication orders and management Brief history: 29-year-old female past medical history morbid obesity, obesity hypoventilation syndrome, diabetes admitted with shortness of breath. Patient is positive for COVID-19 diagnosed 2 weeks ago before this admission, patient required intubated following a cardiac arrest on 03/13/20. ID following and critical care following. Sputum culture is positive for staph aureus, getting abx. on 03/19 she self extubated herself and went into another cardiac arrest - immediately reintubated and ACLS started with return of pulse. 03/16: resumed care. cont iv abx, follow pending sputum Cx. wean off vent as tolerated 03/17: Sputum culture positive for MRSA, stop cefepime continue on vancomycin for 7 days per ID recommendation. Wean off vent as tolerated, continue tube feeding 03/19: Patient self extubated herself and then developed cardiac arrest. ACLS initiated and ROSC obtained. Discussed with RN at the bedside. CTA chest showed b/l PE, heparin drip initiated. Called patient's mother and updated 03/20 at present patient remains intubated was reintubated. CT scan chest showed small PE remains on heparin drip. 03/21 lew intubated no new changes over p.m. Vancomycin for 10 days per ID. Unable to wean at this time. 03/22: patient with dilated pupil w/o cough and gag response. CT head showed tentorium herniation. Neurology consulted, discusaed with CC and he will update the family. 03/23: ordered for repeat CT head today. EEG done today will f/u result. Called mother and updated her with patient's clinical status Subjective Date of service: 03/23/20 Principal diagnosis: Cardiac arrest; Ac. hypoxemic resp failure; COVID 19 infxn; Pulm HTN; OHS Interval history: Patient seen and examined Patient currently intubated with mechanical ventilation Patient also off sedation and off restrain Discussed with RN at the bedside Called mother to give update Objective - Exam Narrative Exam: GENERAL: well-developed morbidly obese -[place] female lying on bed intubated and unresponsive. HEENT: Normocephalic. Atraumatic. No conjunctival congestion or icterus. Patient has dilated fixed stable. NECK: Supple. Trachea midline. ET tube in place CHEST/LUNGS: Diminished breath sound auscultated bilaterally, mechanically ventilated HEART/CARDIOVASCULAR: Tachycardic. S1 and S2 positive. ABDOMEN: Abdomen is soft, nontender. Patient has normal bowel sounds. SKIN: There is no rash. Warm and dry. NEURO: Unresponsive MUSCULOSKELETAL: No joint effusion or tenderness. EXTRIMITY: No edema, no cyanosis or clubbing. PSYCH: Unresponsive - Constitutional Vitals: Vital Signs - 12hr 03/23/20 03/23/20 03/23/20 07:16 07:24 07:30 Temperature Pulse Rate 107 H 107 H 107 H Pulse Rate [ From Monitor] Pulse Rate [ Right Radial] Respiratory 25 H 25 H Rate Blood Pressure 157/82 157/83 158/85 O2 Sat by Pulse 98 97 97 Oximetry 03/23/20 03/23/20 03/23/20 07:46 08:00 08:16 Temperature 99.3 F Pulse Rate 107 H 107 H 108 H Pulse Rate [ 86 From Monitor] Pulse Rate [ Right Radial] Respiratory 25 H 25 H 25 H Rate Blood Pressure 162/85 167/87 169/88 O2 Sat by Pulse 97 97 97 Oximetry 03/23/20 03/23/20 03/23/20 08:30 08:46 09:00 Temperature Pulse Rate 108 H 108 H 109 H Pulse Rate [ From Monitor] Pulse Rate [ Right Radial] Respiratory 25 H 25 H 25 H Rate Blood Pressure 161/90 163/84 163/86 O2 Sat by Pulse 97 97 96 Oximetry 03/23/20 03/23/20 03/23/20 09:16 09:30 09:46 Temperature Pulse Rate 110 H 110 H 112 H Pulse Rate [ From Monitor] Pulse Rate [ Right Radial] Respiratory 25 H 25 H 25 H Rate Blood Pressure 160/84 160/78 163/86 O2 Sat by Pulse 96 96 97 Oximetry 03/23/20 03/23/20 03/23/20 10:00 10:16 10:30 Temperature Pulse Rate 111 H 110 H 108 H Pulse Rate [ From Monitor] Pulse Rate [ Right Radial] Respiratory 25 H 25 H 25 H Rate Blood Pressure 160/86 163/88 168/84 O2 Sat by Pulse 97 97 97 Oximetry 03/23/20 03/23/20 03/23/20 10:46 11:00 11:16 Temperature Pulse Rate 110 H 111 H 111 H Pulse Rate [ From Monitor] Pulse Rate [ Right Radial] Respiratory 25 H 25 H 25 H Rate Blood Pressure 176/94 162/90 167/88 O2 Sat by Pulse 97 97 97 Oximetry 03/23/20 03/23/20 03/23/20 11:30 11:46 11:59 Temperature Pulse Rate 111 H 112 H 111 H Pulse Rate [ From Monitor] Pulse Rate [ Right Radial] Respiratory 25 H 25 H Rate Blood Pressure 160/87 160/79 167/92 O2 Sat by Pulse 96 96 97 Oximetry 03/23/20 03/23/20 03/23/20 12:00 12:16 12:30 Temperature 100.9 F H Pulse Rate 112 H 111 H 110 H Pulse Rate [ 112 H From Monitor] Pulse Rate [ 112 H Right Radial] Respiratory 25 H 25 H 25 H Rate Blood Pressure 167/92 174/92 172/97 O2 Sat by Pulse 97 97 97 Oximetry 03/23/20 03/23/20 03/23/20 12:46 13:00 13:16 Temperature Pulse Rate 111 H 111 H 111 H Pulse Rate [ From Monitor] Pulse Rate [ Right Radial] Respiratory 25 H 25 H 25 H Rate Blood Pressure 173/96 179/100 170/98 O2 Sat by Pulse 97 97 97 Oximetry 03/23/20 03/23/20 03/23/20 13:30 13:46 14:00 Temperature Pulse Rate 111 H 114 H 119 H Pulse Rate [ From Monitor] Pulse Rate [ Right Radial] Respiratory 25 H 25 H 25 H Rate Blood Pressure 181/95 172/94 159/80 O2 Sat by Pulse 97 96 96 Oximetry 03/23/20 03/23/20 03/23/20 14:16 14:30 14:46 Temperature Pulse Rate 108 H 108 H 110 H Pulse Rate [ From Monitor] Pulse Rate [ Right Radial] Respiratory 25 H 25 H 25 H Rate Blood Pressure 152/70 154/81 148/80 O2 Sat by Pulse 96 96 97 Oximetry 03/23/20 03/23/20 03/23/20 15:00 15:16 16:00 Temperature 98.4 F Pulse Rate 110 H 109 H 107 H Pulse Rate [ 105 H From Monitor] Pulse Rate [ 105 H Right Radial] Respiratory 25 H 25 H 25 H Rate Blood Pressure 157/84 162/82 O2 Sat by Pulse 96 97 97 Oximetry 03/23/20 03/23/20 03/23/20 16:02 16:16 16:30 Temperature Pulse Rate 110 H Pulse Rate [ From Monitor] Pulse Rate [ Right Radial] Respiratory 24 Rate Blood Pressure 119/66 130/66 124/70 O2 Sat by Pulse 87 94 95 Oximetry 03/23/20 03/23/20 03/23/20 16:40 16:46 17:00 Temperature Pulse Rate 108 H 107 H 105 H Pulse Rate [ From Monitor] Pulse Rate [ Right Radial] Respiratory 25 H 25 H Rate Blood Pressure 124/68 124/68 121/67 O2 Sat by Pulse 93 93 93 Oximetry 03/23/20 03/23/20 03/23/20 17:16 17:30 17:46 Temperature Pulse Rate 103 H 102 H 101 H Pulse Rate [ From Monitor] Pulse Rate [ Right Radial] Respiratory 25 H 26 H 25 H Rate Blood Pressure 125/68 122/67 121/69 O2 Sat by Pulse 94 94 95 Oximetry 03/23/20 03/23/20 18:00 18:16 Temperature Pulse Rate 100 H 99 H Pulse Rate [ From Monitor] Pulse Rate [ Right Radial] Respiratory 25 H 26 H Rate Blood Pressure 122/68 123/66 O2 Sat by Pulse 96 96 Oximetry - Labs CBC & Chem 7: 03/25/20 05:15 03/25/20 05:15 Labs: Abnormal lab results 03/22/20 03/22/20 03/23/20 Range/Units 23:17 23:27 05:30 Hgb (10.1-14.3) gm/dl Hct (30.3-42.9) % D-Dimer (0-234) ng/mlDDU Heparin Anti-Xa Level 0.17 L (0.3-0.7) U.I./ml POC ABG pO2 (83-108) mmHg ABG Hemoglobin (12.0-17.5) ABG Potassium (3.40-4.50) mmol/L ABG Chloride (98-107) mmol/L ABG Glucose (65-95) mg/dL Potassium (3.6-5.0) mmol/L Chloride (98-107) mmol/L BUN (7-17) mg/dL Creatinine (0.6-1.2) mg/dL Glucose (65-100) mg/dL POC Glucose 235 H 283 H (70-105) mg/dL Ferritin (10.0-200.0) ng/mL Lactate Dehydrogenase (91-180) units/L C-Reactive Protein (0.00-1.30) mg/dL Arterial Blood Glucose (65-95) mg/dL 03/23/20 03/23/20 03/23/20 Range/Units 06:00 09:30 09:30 Hgb 8.8 L (10.1-14.3) gm/dl Hct 28.4 L (30.3-42.9) % D-Dimer 1509.37 H (0-234) ng/mlDDU Heparin Anti-Xa Level (0.3-0.7) U.I./ml POC ABG pO2 (83-108) mmHg ABG Hemoglobin (12.0-17.5) ABG Potassium (3.40-4.50) mmol/L ABG Chloride (98-107) mmol/L ABG Glucose (65-95) mg/dL Potassium (3.6-5.0) mmol/L Chloride (98-107) mmol/L BUN (7-17) mg/dL Creatinine (0.6-1.2) mg/dL Glucose (65-100) mg/dL POC Glucose (70-105) mg/dL Ferritin 284.9 H (10.0-200.0) ng/mL Lactate Dehydrogenase (91-180) units/L C-Reactive Protein (0.00-1.30) mg/dL Arterial Blood Glucose (65-95) mg/dL 03/23/20 03/23/20 03/23/20 Range/Units 09:30 11:54 12:00 Hgb (10.1-14.3) gm/dl Hct (30.3-42.9) % D-Dimer (0-234) ng/mlDDU Heparin Anti-Xa Level 1.87 H (0.3-0.7) U.I./ml POC ABG pO2 (83-108) mmHg ABG Hemoglobin (12.0-17.5) ABG Potassium (3.40-4.50) mmol/L ABG Chloride (98-107) mmol/L ABG Glucose (65-95) mg/dL Potassium 5.2 H (3.6-5.0) mmol/L Chloride 110.1 H (98-107) mmol/L BUN 57 H (7-17) mg/dL Creatinine 1.4 H (0.6-1.2) mg/dL Glucose 318 H (65-100) mg/dL POC Glucose 287 H (70-105) mg/dL Ferritin (10.0-200.0) ng/mL Lactate Dehydrogenase 414 H (91-180) units/L C-Reactive Protein 26.30 H (0.00-1.30) mg/dL Arterial Blood Glucose (65-95) mg/dL 03/23/20 03/23/20 Range/Units 17:42 Unknown Hgb (10.1-14.3) gm/dl Hct (30.3-42.9) % D-Dimer (0-234) ng/mlDDU Heparin Anti-Xa Level (0.3-0.7) U.I./ml POC ABG pO2 81.6 L (83-108) mmHg ABG Hemoglobin 10.1 L (12.0-17.5) ABG Potassium 5.1 H (3.40-4.50) mmol/L ABG Chloride 109.0 H (98-107) mmol/L ABG Glucose 295 H (65-95) mg/dL Potassium (3.6-5.0) mmol/L Chloride (98-107) mmol/L BUN (7-17) mg/dL Creatinine (0.6-1.2) mg/dL Glucose (65-100) mg/dL POC Glucose 281 H (70-105) mg/dL Ferritin (10.0-200.0) ng/mL Lactate Dehydrogenase (91-180) units/L C-Reactive Protein (0.00-1.30) mg/dL Arterial Blood Glucose 295 H (65-95) mg/dL HEART Score - HEART Score Troponin: Troponin T 0.017 ng/mL (0.00-0.029) 03/14/20 09:17
[2020-03-23] MEDS: INSULIN GLARGINE 100 UNITS/ML SUB-Q SCH (22:12)
[2020-03-24] MEDS: INSULIN LISPRO 100 UNIT/ML VIAL 3 mL SUB-Q SCH ×4 (01:58→18:43)
[2020-03-24 02:34] LABS: BUN/Creatinine Ratio 45; Blood Urea Nitrogen 54 mg/dL (7-17); Calcium 10.2 mg/dL (8.4-10.2); Hemolysis Index 6
[2020-03-24 04:25] LABS: ABG Base Excess 2.6 mmol/L (-2.0-3.0); ABG HCO3 26.7 mmol/L (20.0-26.0); ABG Methemoglobin 0.5 % (0.0-1.5); ABG Oxygen Saturation 97.6 % (95.0-99.0); ABG PCO2 39.2 mm Hg; ABG PH 7.452 pH Units (7.350-7.450); ABG PO2 96.6 mm Hg (80.0-90.0)
[2020-03-24] MEDS: dexAMETHasone 4 MG/ML VIAL IV SCH ×3 (05:38→22:12)
--- NOTE | 2020-03-24 07:01 | Progress Note ---
Assessment and Plan Cultures: Blood culture 03/09/2020 no growth Urine culture 03/09/2020 Tracheal aspirate culture 03/13/2020 MRSA Blood culture 03/23/2020 no growth today A/P: 29-year-old female past medical history morbid obesity, obesity hypoventilation syndrome, diabetes admitted with shortness of breath #Status post cardiac arrest - x2 on 03/13 and 03/19 #Shock: Multifactorial, likely septic source ? Pneumonia ? UTI. Remains with fever. #Critical COVID-19 pneumonia +/- MRSA pneumonia: COVID-19 diagnosed over 2 weeks before admission, as such not a candidate for remdesivir. Markers mildly elevated. Procalcitonin slightly elevated at 0.3. Tract aspirate grew MRSA. Intubated 03/13/2020 after cardiac arrest, self extubated 03/19/2020, then reintubated. Completed vancomycin to complete 10 days on 03/21/2020. #Acute hypoxemic respiratory failure: Likely secondary to COVID-19 infection versus CHF versus bacterial pneumonia. Remains intubated FiO2 60%, PEEP 14. #Diabetes: tight glycemic control for best outcomes. #Morbid obesity: Associated with worse outcomes, recommend diet modifications #CHF: acute volume overload #PE: non-occlusive. #Acute encephalopathy: Patient unresponsive fixed pupils, repeat CT head with marked hypoattenuation in the cerebral hemispheres bilaterally, ascending and descending tentorial herniation. Neurology on board #MICHELLE: Improving Recs: -Follow-up repeat blood cultures and tracheal aspirate -Follow urine cultures -Exchange Varela catheter -Continue cefepime 2 g IV every 12 hours, renally adjusted given UTI - D3 of 5 Overall very poor prognosis, patient unresponsive with brain herniation Miesha Ramirez MD [facility], [place], [facility]ated [facility] ([facility]) Office [phone] Subjective Date of service: 03/24/20 Principal diagnosis: Cardiac arrest; Ac. hypoxemic resp failure; COVID 19 infxn; Pulm HTN; OHS Interval history: Remains intubated FiO2 60%, PEEP 14, noted low-grade fever. On Heparin drip Objective - Exam Narrative Exam: Physical Exam: reviewed ED and hospitalist notes, limited due to conservation of PPE and decrease risk of transmission. General appearance: limited due to conservation of PPE Eyes: limited due to conservation of PPE HENT: Atraumatic; limited due to conservation of PPE Lungs: limited due to conservation of PPE CV: limited due to conservation of PPE Abdomen: limited due to conservation of PPE Extremities: limited due to conservation of PPE Skin: limited due to conservation of PPE Psych: limited due to conservation of PPE Neuro: limited due to conservation of PPE - Constitutional Vitals: Vital Signs Temp Pulse Resp BP Pulse Ox 100.4 F H 87 25 H 141/72 98 03/24/20 04:00 03/24/20 06:01 03/24/20 06:01 03/24/20 06:01 03/24/20 06:01 Temperature -Last 24 Hours Temperature 100.4 F Temperature 99.8 F Temperature 99.8 F Temperature 100.1 F Temperature 98.4 F Temperature 100.9 F Temperature 99.3 F - Labs CBC & Chem 7: 03/23/20 06:00 03/24/20 02:08 Labs: Abnormal lab results 03/23/20 03/23/20 03/23/20 Range/Units 09:30 09:30 09:30 D-Dimer 1509.37 H (0-234) ng/mlDDU Heparin Anti-Xa Level (0.3-0.7) U.I./ml ABG pH (7.350-7.450) pH Units ABG pO2 (80.0-90.0) mm Hg ABG HCO3 (20.0-26.0) mmol/L ABG Hemoglobin (12.0-16.0) gm/dl Sodium (137-145) mmol/L Potassium 5.2 H (3.6-5.0) mmol/L Chloride 110.1 H (98-107) mmol/L BUN 57 H (7-17) mg/dL Creatinine 1.4 H (0.6-1.2) mg/dL Glucose 318 H (65-100) mg/dL POC Glucose (70-105) mg/dL Ferritin 284.9 H (10.0-200.0) ng/mL Lactate Dehydrogenase 414 H (91-180) units/L C-Reactive Protein 26.30 H (0.00-1.30) mg/dL 03/23/20 03/23/20 03/23/20 Range/Units 11:54 12:00 17:42 D-Dimer (0-234) ng/mlDDU Heparin Anti-Xa Level 1.87 H (0.3-0.7) U.I./ml ABG pH (7.350-7.450) pH Units ABG pO2 (80.0-90.0) mm Hg ABG HCO3 (20.0-26.0) mmol/L ABG Hemoglobin (12.0-16.0) gm/dl Sodium (137-145) mmol/L Potassium (3.6-5.0) mmol/L Chloride (98-107) mmol/L BUN (7-17) mg/dL Creatinine (0.6-1.2) mg/dL Glucose (65-100) mg/dL POC Glucose 287 H 281 H (70-105) mg/dL Ferritin (10.0-200.0) ng/mL Lactate Dehydrogenase (91-180) units/L C-Reactive Protein (0.00-1.30) mg/dL 03/23/20 03/24/20 03/24/20 Range/Units 23:27 02:08 03:50 D-Dimer (0-234) ng/mlDDU Heparin Anti-Xa Level (0.3-0.7) U.I./ml ABG pH 7.452 H (7.350-7.450) pH Units ABG pO2 96.6 H (80.0-90.0) mm Hg ABG HCO3 26.7 H (20.0-26.0) mmol/L ABG Hemoglobin 9.0 L (12.0-16.0) gm/dl Sodium 156 H D (137-145) mmol/L Potassium 5.4 H (3.6-5.0) mmol/L Chloride 120.4 H (98-107) mmol/L BUN 54 H (7-17) mg/dL Creatinine (0.6-1.2) mg/dL Glucose 352 H (65-100) mg/dL POC Glucose 266 H (70-105) mg/dL Ferritin (10.0-200.0) ng/mL Lactate Dehydrogenase (91-180) units/L C-Reactive Protein (0.00-1.30) mg/dL 03/24/20 Range/Units 05:31 D-Dimer (0-234) ng/mlDDU Heparin Anti-Xa Level (0.3-0.7) U.I./ml ABG pH (7.350-7.450) pH Units ABG pO2 (80.0-90.0) mm Hg ABG HCO3 (20.0-26.0) mmol/L ABG Hemoglobin (12.0-16.0) gm/dl Sodium (137-145) mmol/L Potassium (3.6-5.0) mmol/L Chloride (98-107) mmol/L BUN (7-17) mg/dL Creatinine (0.6-1.2) mg/dL Glucose (65-100) mg/dL POC Glucose 307 H (70-105) mg/dL Ferritin (10.0-200.0) ng/mL Lactate Dehydrogenase (91-180) units/L C-Reactive Protein (0.00-1.30) mg/dL
[2020-03-24] MEDS: GLYCOPYRROLATE 2 MG TAB PO SCH ×3 (08:28→22:12)
[2020-03-24] MEDS: HEPARIN/ 0.45% NACL DRIP 25,000 UNIT/500 ML BAG IV SCH ×2 (08:28→22:11)
[2020-03-24] MEDS: POLYETHYLENE GLYCOL 3350 17 GM POWDER PO SCH (10:10)
[2020-03-24] MEDS: CEFEPIME/NS 2 GM/100 ML 2 GM/100 ML BAG IV SCH ×2 (10:10→22:12)
[2020-03-24] MEDS: SENNOSIDES/DOCUSATE SODIUM 8.6/50 MG TAB PO SCH ×2 (10:11→22:12)
[2020-03-24] MEDS: LANSOPRAZOLE 30 MG SOLUTAB FEEDTUBE SCH (10:11)
--- NOTE | 2020-03-24 11:33 | Progress Note ---
Assessment and Plan 29 yo female with hypertension, dm, asthma, morbid obesity, presented with a hx of COVID-19 and noted with shortness of breath 2 days prior to admission. During this hospitalization, the patient suffered a cardiac arrest w/ a ROSC of 13 minutes and remains encephalopatic with a concern for cerebellar infarcts w/ supra/infratentorial herniation. 1. Hypoxic Anxoic Encephalopathy - concern is raised based on clinical hx of 2 cardiac arrests; repeat NCHCT reveals diffuse anoxic injury. Spoke to Jihan, regarding my concern for a poor prognosis. Concerned about brain (recommend bedside brain exam) and futile care. Acosta Floyd MD Neurology Subjective Principal diagnosis: Cardiac arrest; Ac. hypoxemic resp failure; COVID 19 infxn; Pulm HTN; OHS Interval history: Spoke to motherJihan at [phone] Objective - Vital Sign Vital Signs - 12hr 03/23/20 03/23/20 03/23/20 23:30 23:45 23:50 Temperature Pulse Rate 95 H 96 H 95 H Pulse Rate [ From Monitor] Respiratory 25 H 25 H 25 H Rate Blood Pressure 135/75 134/76 134/76 O2 Sat by Pulse 98 98 97 Oximetry 03/24/20 03/24/20 03/24/20 00:00 00:03 00:15 Temperature 99.8 F H Pulse Rate 93 H 94 H 94 H Pulse Rate [ 94 H From Monitor] Respiratory 25 H 25 H 25 H Rate Blood Pressure 134/71 134/71 135/75 O2 Sat by Pulse 97 97 97 Oximetry 03/24/20 03/24/20 03/24/20 00:25 00:30 00:45 Temperature 99.8 F H Pulse Rate 94 H 92 H Pulse Rate [ From Monitor] Respiratory 25 H 25 H Rate Blood Pressure 130/71 125/67 O2 Sat by Pulse 97 97 Oximetry 03/24/20 03/24/20 03/24/20 01:00 01:15 01:30 Temperature Pulse Rate 94 H 94 H 95 H Pulse Rate [ From Monitor] Respiratory 25 H 25 H 25 H Rate Blood Pressure 143/72 147/78 150/80 O2 Sat by Pulse 97 98 98 Oximetry 03/24/20 03/24/20 03/24/20 01:45 02:00 02:15 Temperature Pulse Rate 96 H 96 H 95 H Pulse Rate [ From Monitor] Respiratory 25 H 25 H 25 H Rate Blood Pressure 147/83 148/78 141/76 O2 Sat by Pulse 98 98 97 Oximetry 03/24/20 03/24/20 03/24/20 02:30 02:45 03:00 Temperature Pulse Rate 95 H 93 H 92 H Pulse Rate [ From Monitor] Respiratory 25 H 25 H 25 H Rate Blood Pressure 142/75 145/79 148/78 O2 Sat by Pulse 98 98 98 Oximetry 03/24/20 03/24/20 03/24/20 03:15 03:30 03:42 Temperature Pulse Rate 92 H 91 H 90 Pulse Rate [ From Monitor] Respiratory 25 H 25 H Rate Blood Pressure 148/81 148/81 150/80 O2 Sat by Pulse 98 98 98 Oximetry 03/24/20 03/24/20 03/24/20 03:45 04:00 04:15 Temperature 100.4 F H Pulse Rate 89 88 90 Pulse Rate [ 91 H From Monitor] Respiratory 25 H 25 H 25 H Rate Blood Pressure 150/80 144/75 135/67 O2 Sat by Pulse 98 98 98 Oximetry 03/24/20 03/24/20 03/24/20 04:30 04:45 05:01 Temperature Pulse Rate 95 H 95 H 91 H Pulse Rate [ From Monitor] Respiratory 25 H 26 H 25 H Rate Blood Pressure 138/69 146/71 142/71 O2 Sat by Pulse 98 99 98 Oximetry 03/24/20 03/24/20 03/24/20 05:15 05:30 05:45 Temperature Pulse Rate 89 88 87 Pulse Rate [ From Monitor] Respiratory 25 H 25 H 26 H Rate Blood Pressure 139/69 141/72 140/72 O2 Sat by Pulse 99 98 98 Oximetry 03/24/20 03/24/20 03/24/20 06:01 06:15 06:31 Temperature Pulse Rate 87 87 87 Pulse Rate [ From Monitor] Respiratory 25 H 25 H 25 H Rate Blood Pressure 141/72 140/71 139/73 O2 Sat by Pulse 98 98 98 Oximetry 03/24/20 03/24/20 03/24/20 06:45 07:00 07:15 Temperature Pulse Rate 87 88 89 Pulse Rate [ From Monitor] Respiratory 25 H 25 H 25 H Rate Blood Pressure 145/76 148/76 153/81 O2 Sat by Pulse 98 98 98 Oximetry 03/24/20 03/24/2020 07:30 07:45 08:00 Temperature 99.2 F Pulse Rate 88 90 90 Pulse Rate [ 90 From Monitor] Respiratory 26 H 25 H 21 Rate Blood Pressure 152/81 155/81 O2 Sat by Pulse 97 98 98 Oximetry 03/24/20 03/24/20 03/24/20 08:01 08:12 08:15 Temperature Pulse Rate 90 89 90 Pulse Rate [ From Monitor] Respiratory 25 H 25 H Rate Blood Pressure 159/84 155/85 155/85 O2 Sat by Pulse 98 98 98 Oximetry 03/24/20 03/24/20 03/24/20 08:30 08:45 08:53 Temperature 99.2 F Pulse Rate 90 91 H Pulse Rate [ From Monitor] Respiratory 8 L 23 Rate Blood Pressure 155/85 153/81 O2 Sat by Pulse 97 96 Oximetry 03/24/20 03/24/20 03/24/20 09:01 09:15 09:31 Temperature Pulse Rate 90 88 90 Pulse Rate [ From Monitor] Respiratory 17 24 11 L Rate Blood Pressure 152/82 151/83 145/77 O2 Sat by Pulse 97 98 97 Oximetry 03/24/20 03/24/20 03/24/20 09:45 10:00 10:15 Temperature Pulse Rate 89 89 87 Pulse Rate [ From Monitor] Respiratory 25 H 25 H 25 H Rate Blood Pressure 141/73 147/79 146/76 O2 Sat by Pulse 97 Oximetry 03/24/20 03/24/20 03/24/20 10:30 10:45 11:01 Temperature Pulse Rate 88 87 88 Pulse Rate [ From Monitor] Respiratory 25 H 25 H 25 H Rate Blood Pressure 151/82 149/77 128/63 O2 Sat by Pulse 97 96 97 Oximetry - Laboratory Findings CBC and BMP: 03/23/20 06:00 03/24/20 02:08 Abnormal Lab Findings: Abnormal Labs 03/09/20 03/09/20 03/09/20 08:27 08:27 08:27 WBC 15.8 H RBC 5.43 H Hgb Hct MCH 24 L MCHC RDW 19.3 H Lymph % (Auto) Gray % (Auto) 8.2 H Lymph # (Auto) Gray # (Auto) 1.3 H Seg Neutrophils % 70.4 H Seg Neutrophils # 11.1 H APTT D-Dimer Heparin Anti-Xa Level ABG pH POC ABG pCO2 POC ABG pO2 ABG pO2 ABG HCO3 ABG Base Excess ABG Hemoglobin ABG Oxyhemoglobin ABG Sodium ABG Potassium ABG Chloride ABG Glucose Oxyhemoglobin Carboxyhemoglobin Sodium Potassium Chloride 97.1 L Carbon Dioxide BUN 29 H Creatinine Glucose 178 H POC Glucose Hemoglobin A1c Lactic Acid 3.70 H* Calcium Ferritin Total Bilirubin AST ALT Lactate Dehydrogenase 369 H C-Reactive Protein 3.00 H NT-Pro-B Natriuret Pep Total Protein Albumin Triglycerides Arterial Blood Glucose Arterial Blood Ionized Calcium Urine WBC (Auto) U Epithel Cells (Auto) Urine Creatinine Random Vancomycin Coronavirus (PCR) SARS-CoV-2 IgG Ab 03/09/20 03/09/20 03/09/20 08:27 08:27 08:27 WBC RBC Hgb Hct MCH MCHC RDW Lymph % (Auto) Gray % (Auto) Lymph # (Auto) Gray # (Auto) Seg Neutrophils % Seg Neutrophils # APTT D-Dimer 1042.81 H Heparin Anti-Xa Level ABG pH POC ABG pCO2 POC ABG pO2 ABG pO2 ABG HCO3 ABG Base Excess ABG Hemoglobin ABG Oxyhemoglobin ABG Sodium ABG Potassium ABG Chloride ABG Glucose Oxyhemoglobin Carboxyhemoglobin Sodium Potassium Chloride Carbon Dioxide BUN Creatinine Glucose POC Glucose Hemoglobin A1c 8.0 H Lactic Acid Calcium Ferritin Total Bilirubin AST ALT Lactate Dehydrogenase C-Reactive Protein NT-Pro-B Natriuret Pep 2914 H Total Protein Albumin Triglycerides Arterial Blood Glucose Arterial Blood Ionized Calcium Urine WBC (Auto) U Epithel Cells (Auto) Urine Creatinine Random Vancomycin Coronavirus (PCR) SARS-CoV-2 IgG Ab 03/09/20 03/09/20 03/10/20 08:43 23:04 05:23 WBC RBC Hgb Hct MCH MCHC RDW Lymph % (Auto) Gray % (Auto) Lymph # (Auto) Gray # (Auto) Seg Neutrophils % Seg Neutrophils # APTT D-Dimer Heparin Anti-Xa Level ABG pH POC ABG pCO2 POC ABG pO2 ABG pO2 ABG HCO3 ABG Base Excess ABG Hemoglobin ABG Oxyhemoglobin ABG Sodium ABG Potassium ABG Chloride ABG Glucose Oxyhemoglobin Carboxyhemoglobin Sodium Potassium Chloride Carbon Dioxide BUN Creatinine Glucose POC Glucose 361 H Hemoglobin A1c Lactic Acid 6.80 H* Calcium Ferritin Total Bilirubin AST ALT Lactate Dehydrogenase C-Reactive Protein NT-Pro-B Natriuret Pep Total Protein Albumin Triglycerides Arterial Blood Glucose Arterial Blood Ionized Calcium Urine WBC (Auto) U Epithel Cells (Auto) Urine Creatinine Random Vancomycin Coronavirus (PCR) Positive A SARS-CoV-2 IgG Ab 03/10/20 03/10/20 03/10/20 08:19 10:49 17:11 WBC RBC Hgb Hct MCH MCHC RDW Lymph % (Auto) Gray % (Auto) Lymph # (Auto) Gray # (Auto) Seg Neutrophils % Seg Neutrophils # APTT D-Dimer Heparin Anti-Xa Level ABG pH POC ABG pCO2 POC ABG pO2 ABG pO2 ABG HCO3 ABG Base Excess ABG Hemoglobin ABG Oxyhemoglobin ABG Sodium ABG Potassium ABG Chloride ABG Glucose Oxyhemoglobin Carboxyhemoglobin Sodium Potassium Chloride Carbon Dioxide BUN Creatinine Glucose POC Glucose 371 H 423 H 373 H Hemoglobin A1c Lactic Acid Calcium Ferritin Total Bilirubin AST ALT Lactate Dehydrogenase C-Reactive Protein NT-Pro-B Natriuret Pep Total Protein Albumin Triglycerides Arterial Blood Glucose Arterial Blood Ionized Calcium Urine WBC (Auto) U Epithel Cells (Auto) Urine Creatinine Random Vancomycin Coronavirus (PCR) SARS-CoV-2 IgG Ab 03/11/20 03/11/20 03/11/20 00:29 07:52 13:12 WBC RBC Hgb Hct MCH MCHC RDW Lymph % (Auto) Gray % (Auto) Lymph # (Auto) Gray # (Auto) Seg Neutrophils % Seg Neutrophils # APTT D-Dimer Heparin Anti-Xa Level ABG pH POC ABG pCO2 POC ABG pO2 ABG pO2 ABG HCO3 ABG Base Excess ABG Hemoglobin ABG Oxyhemoglobin ABG Sodium ABG Potassium ABG Chloride ABG Glucose Oxyhemoglobin Carboxyhemoglobin Sodium Potassium Chloride Carbon Dioxide BUN Creatinine Glucose POC Glucose 242 H 233 H 352 H Hemoglobin A1c Lactic Acid Calcium Ferritin Total Bilirubin AST ALT Lactate Dehydrogenase C-Reactive Protein NT-Pro-B Natriuret Pep Total Protein Albumin Triglycerides Arterial Blood Glucose Arterial Blood Ionized Calcium Urine WBC (Auto) U Epithel Cells (Auto) Urine Creatinine Random Vancomycin Coronavirus (PCR) SARS-CoV-2 IgG Ab 03/11/20 03/11/20 03/12/20 15:24 22:54 08:22 WBC RBC Hgb Hct MCH MCHC RDW Lymph % (Auto) Gray % (Auto) Lymph # (Auto) Gray # (Auto) Seg Neutrophils % Seg Neutrophils # APTT D-Dimer Heparin Anti-Xa Level ABG pH POC ABG pCO2 POC ABG pO2 ABG pO2 ABG HCO3 ABG Base Excess ABG Hemoglobin ABG Oxyhemoglobin ABG Sodium ABG Potassium ABG Chloride ABG Glucose Oxyhemoglobin Carboxyhemoglobin Sodium Potassium Chloride Carbon Dioxide BUN Creatinine Glucose POC Glucose 386 H 418 H 431 H Hemoglobin A1c Lactic Acid Calcium Ferritin Total Bilirubin AST ALT Lactate Dehydrogenase C-Reactive Protein NT-Pro-B Natriuret Pep Total Protein Albumin Triglycerides Arterial Blood Glucose Arterial Blood Ionized Calcium Urine WBC (Auto) U Epithel Cells (Auto) Urine Creatinine Random Vancomycin Coronavirus (PCR) SARS-CoV-2 IgG Ab 03/12/20 03/12/20 03/12/20 11:34 16:53 22:20 WBC RBC Hgb Hct MCH MCHC RDW Lymph % (Auto) Gray % (Auto) Lymph # (Auto) Gray # (Auto) Seg Neutrophils % Seg Neutrophils # APTT D-Dimer Heparin Anti-Xa Level ABG pH POC ABG pCO2 POC ABG pO2 ABG pO2 ABG HCO3 ABG Base Excess ABG Hemoglobin ABG Oxyhemoglobin ABG Sodium ABG Potassium ABG Chloride ABG Glucose Oxyhemoglobin Carboxyhemoglobin Sodium Potassium Chloride Carbon Dioxide BUN Creatinine Glucose POC Glucose 310 H 358 H 295 H Hemoglobin A1c Lactic Acid Calcium Ferritin Total Bilirubin AST ALT Lactate Dehydrogenase C-Reactive Protein NT-Pro-B Natriuret Pep Total Protein Albumin Triglycerides Arterial Blood Glucose Arterial Blood Ionized Calcium Urine WBC (Auto) U Epithel Cells (Auto) Urine Creatinine Random Vancomycin Coronavirus (PCR) SARS-CoV-2 IgG Ab 03/13/20 03/13/20 03/13/20 05:48 09:15 12:09 WBC 18.3 H RBC Hgb Hct MCH 24 L MCHC 29 L RDW 18.9 H Lymph % (Auto) 7.8 L Gray % (Auto) 9.7 H Lymph # (Auto) Gray # (Auto) 1.8 H Seg Neutrophils % 82.0 H Seg Neutrophils # 15.0 H APTT D-Dimer Heparin Anti-Xa Level ABG pH 7.327 L POC ABG pCO2 POC ABG pO2 ABG pO2 73.0 L ABG HCO3 39.3 H ABG Base Excess 10.8 H ABG Hemoglobin 11.2 L ABG Oxyhemoglobin ABG Sodium ABG Potassium ABG Chloride ABG Glucose Oxyhemoglobin 93.4 L Carboxyhemoglobin Sodium Potassium Chloride Carbon Dioxide BUN Creatinine Glucose POC Glucose 216 H Hemoglobin A1c Lactic Acid Calcium Ferritin Total Bilirubin AST ALT Lactate Dehydrogenase C-Reactive Protein NT-Pro-B Natriuret Pep Total Protein Albumin Triglycerides Arterial Blood Glucose Arterial Blood Ionized Calcium Urine WBC (Auto) U Epithel Cells (Auto) Urine Creatinine Random Vancomycin Coronavirus (PCR) SARS-CoV-2 IgG Ab 03/13/20 03/13/20 03/13/20 12:09 12:11 17:23 WBC RBC Hgb Hct MCH MCHC RDW Lymph % (Auto) Gray % (Auto) Lymph # (Auto) Gray # (Auto) Seg Neutrophils % Seg Neutrophils # APTT D-Dimer Heparin Anti-Xa Level ABG pH POC ABG pCO2 POC ABG pO2 ABG pO2 ABG HCO3 ABG Base Excess ABG Hemoglobin ABG Oxyhemoglobin ABG Sodium ABG Potassium ABG Chloride ABG Glucose Oxyhemoglobin Carboxyhemoglobin Sodium Potassium 5.1 H Chloride Carbon Dioxide 37 H D BUN Creatinine Glucose 154 H POC Glucose 148 H 217 H Hemoglobin A1c Lactic Acid Calcium Ferritin Total Bilirubin AST 47 H ALT 128 H Lactate Dehydrogenase C-Reactive Protein NT-Pro-B Natriuret Pep Total Protein 5.9 L Albumin 3.0 L Triglycerides Arterial Blood Glucose Arterial Blood Ionized Calcium Urine WBC (Auto) U Epithel Cells (Auto) Urine Creatinine Random Vancomycin Coronavirus (PCR) SARS-CoV-2 IgG Ab 03/14/20 03/14/20 03/14/20 06:15 06:55 09:17 WBC 14.9 H RBC Hgb Hct MCH 25 L MCHC RDW 19.1 H Lymph % (Auto) 9.5 L Gray % (Auto) Lymph # (Auto) Gray # (Auto) 0.9 H Seg Neutrophils % 83.8 H Seg Neutrophils # 12.5 H APTT D-Dimer Heparin Anti-Xa Level ABG pH 7.544 H POC ABG pCO2 POC ABG pO2 ABG pO2 92.8 H ABG HCO3 37.3 H ABG Base Excess 13.5 H ABG Hemoglobin 10.5 L ABG Oxyhemoglobin ABG Sodium ABG Potassium ABG Chloride ABG Glucose Oxyhemoglobin Carboxyhemoglobin Sodium Potassium Chloride Carbon Dioxide BUN Creatinine Glucose POC Glucose 182 H Hemoglobin A1c Lactic Acid Calcium Ferritin Total Bilirubin AST ALT Lactate Dehydrogenase C-Reactive Protein NT-Pro-B Natriuret Pep Total Protein Albumin Triglycerides Arterial Blood Glucose Arterial Blood Ionized Calcium Urine WBC (Auto) U Epithel Cells (Auto) Urine Creatinine Random Vancomycin Coronavirus (PCR) SARS-CoV-2 IgG Ab 03/14/20 03/14/20 03/14/20 09:17 11:43 17:47 WBC RBC Hgb Hct MCH MCHC RDW Lymph % (Auto) Gray % (Auto) Lymph # (Auto) Gray # (Auto) Seg Neutrophils % Seg Neutrophils # APTT D-Dimer Heparin Anti-Xa Level ABG pH POC ABG pCO2 POC ABG pO2 ABG pO2 ABG HCO3 ABG Base Excess ABG Hemoglobin ABG Oxyhemoglobin ABG Sodium ABG Potassium ABG Chloride ABG Glucose Oxyhemoglobin Carboxyhemoglobin Sodium Potassium Chloride Carbon Dioxide 34 H BUN Creatinine 0.5 L Glucose 204 H POC Glucose 283 H 254 H Hemoglobin A1c Lactic Acid Calcium Ferritin Total Bilirubin 2.60 H AST 82 H ALT 152 H Lactate Dehydrogenase C-Reactive Protein NT-Pro-B Natriuret Pep Total Protein 5.7 L Albumin 3.0 L Triglycerides Arterial Blood Glucose Arterial Blood Ionized Calcium Urine WBC (Auto) U Epithel Cells (Auto) Urine Creatinine Random Vancomycin Coronavirus (PCR) SARS-CoV-2 IgG Ab 03/14/20 03/15/20 03/15/20 23:59 03:08 05:52 WBC RBC Hgb Hct MCH MCHC RDW Lymph % (Auto) Gray % (Auto) Lymph # (Auto) Gray # (Auto) Seg Neutrophils % Seg Neutrophils # APTT D-Dimer Heparin Anti-Xa Level ABG pH 7.536 H POC ABG pCO2 POC ABG pO2 ABG pO2 ABG HCO3 ABG Base Excess ABG Hemoglobin 10.7 L ABG Oxyhemoglobin ABG Sodium 135.2 L ABG Potassium ABG Chloride ABG Glucose 317 H Oxyhemoglobin Carboxyhemoglobin Sodium Potassium Chloride Carbon Dioxide BUN Creatinine Glucose POC Glucose 293 H 293 H Hemoglobin A1c Lactic Acid Calcium Ferritin Total Bilirubin AST ALT Lactate Dehydrogenase C-Reactive Protein NT-Pro-B Natriuret Pep Total Protein Albumin Triglycerides Arterial Blood Glucose 317 H Arterial Blood Ionized Calcium 4.5 L Urine WBC (Auto) U Epithel Cells (Auto) Urine Creatinine Random Vancomycin Coronavirus (PCR) SARS-CoV-2 IgG Ab 03/15/20 03/15/20 03/15/20 13:29 17:43 23:26 WBC RBC Hgb Hct MCH MCHC RDW Lymph % (Auto) Gray % (Auto) Lymph # (Auto) Gray # (Auto) Seg Neutrophils % Seg Neutrophils # APTT D-Dimer Heparin Anti-Xa Level ABG pH POC ABG pCO2 POC ABG pO2 ABG pO2 ABG HCO3 ABG Base Excess ABG Hemoglobin ABG Oxyhemoglobin ABG Sodium ABG Potassium ABG Chloride ABG Glucose Oxyhemoglobin Carboxyhemoglobin Sodium Potassium Chloride Carbon Dioxide BUN Creatinine Glucose POC Glucose 299 H 327 H 325 H Hemoglobin A1c Lactic Acid Calcium Ferritin Total Bilirubin AST ALT Lactate Dehydrogenase C-Reactive Protein NT-Pro-B Natriuret Pep Total Protein Albumin Triglycerides Arterial Blood Glucose Arterial Blood Ionized Calcium Urine WBC (Auto) U Epithel Cells (Auto) Urine Creatinine Random Vancomycin Coronavirus (PCR) SARS-CoV-2 IgG Ab 03/16/20 03/16/20 03/16/20 01:28 04:44 05:26 WBC RBC Hgb Hct MCH MCHC RDW Lymph % (Auto) Gray % (Auto) Lymph # (Auto) Gray # (Auto) Seg Neutrophils % Seg Neutrophils # APTT D-Dimer Heparin Anti-Xa Level ABG pH 7.540 H POC ABG pCO2 POC ABG pO2 ABG pO2 ABG HCO3 ABG Base Excess ABG Hemoglobin 10.5 L ABG Oxyhemoglobin ABG Sodium ABG Potassium ABG Chloride ABG Glucose 312 H Oxyhemoglobin Carboxyhemoglobin Sodium Potassium Chloride Carbon Dioxide BUN 18 H Creatinine Glucose 330 H POC Glucose 264 H Hemoglobin A1c Lactic Acid Calcium Ferritin Total Bilirubin AST ALT Lactate Dehydrogenase C-Reactive Protein NT-Pro-B Natriuret Pep Total Protein Albumin Triglycerides Arterial Blood Glucose 312 H Arterial Blood Ionized Calcium Urine WBC (Auto) U Epithel Cells (Auto) Urine Creatinine Random Vancomycin Coronavirus (PCR) SARS-CoV-2 IgG Ab 03/16/20 03/16/20 03/16/20 11:58 17:51 17:54 WBC RBC Hgb Hct MCH MCHC RDW Lymph % (Auto) Gray % (Auto) Lymph # (Auto) Gray # (Auto) Seg Neutrophils % Seg Neutrophils # APTT D-Dimer Heparin Anti-Xa Level ABG pH POC ABG pCO2 58.9 H POC ABG pO2 142.4 H ABG pO2 ABG HCO3 ABG Base Excess ABG Hemoglobin 11.6 L ABG Oxyhemoglobin ABG Sodium 135.9 L ABG Potassium 4.9 H ABG Chloride ABG Glucose 332 H Oxyhemoglobin Carboxyhemoglobin Sodium Potassium Chloride Carbon Dioxide BUN Creatinine Glucose POC Glucose 196 H 285 H Hemoglobin A1c Lactic Acid Calcium Ferritin Total Bilirubin AST ALT Lactate Dehydrogenase C-Reactive Protein NT-Pro-B Natriuret Pep Total Protein Albumin Triglycerides Arterial Blood Glucose 332 H Arterial Blood Ionized Calcium Urine WBC (Auto) U Epithel Cells (Auto) Urine Creatinine Random Vancomycin Coronavirus (PCR) SARS-CoV-2 IgG Ab 03/16/20 03/16/20 03/17/20 17:56 23:43 03:13 WBC RBC Hgb Hct MCH MCHC RDW Lymph % (Auto) Gray % (Auto) Lymph # (Auto) Gray # (Auto) Seg Neutrophils % Seg Neutrophils # APTT D-Dimer Heparin Anti-Xa Level ABG pH POC ABG pCO2 POC ABG pO2 ABG pO2 ABG HCO3 ABG Base Excess ABG Hemoglobin ABG Oxyhemoglobin ABG Sodium ABG Potassium ABG Chloride ABG Glucose Oxyhemoglobin Carboxyhemoglobin Sodium Potassium Chloride Carbon Dioxide BUN Creatinine Glucose POC Glucose 258 H Hemoglobin A1c Lactic Acid Calcium Ferritin Total Bilirubin AST ALT Lactate Dehydrogenase C-Reactive Protein NT-Pro-B Natriuret Pep Total Protein Albumin Triglycerides 252 H Arterial Blood Glucose Arterial Blood Ionized Calcium Urine WBC (Auto) U Epithel Cells (Auto) Urine Creatinine Random Vancomycin Coronavirus (PCR) SARS-CoV-2 IgG Ab Reactive A 03/17/20 03/17/20 03/17/20 05:33 11:12 11:55 WBC RBC Hgb 9.2 L Hct 29.7 L MCH 25 L MCHC RDW 19.9 H Lymph % (Auto) Gray % (Auto) Lymph # (Auto) Gray # (Auto) Seg Neutrophils % Seg Neutrophils # APTT D-Dimer Heparin Anti-Xa Level ABG pH POC ABG pCO2 POC ABG pO2 ABG pO2 ABG HCO3 ABG Base Excess ABG Hemoglobin ABG Oxyhemoglobin ABG Sodium ABG Potassium ABG Chloride ABG Glucose Oxyhemoglobin Carboxyhemoglobin Sodium Potassium Chloride Carbon Dioxide BUN Creatinine Glucose POC Glucose 157 H 112 H Hemoglobin A1c Lactic Acid Calcium Ferritin Total Bilirubin AST ALT Lactate Dehydrogenase C-Reactive Protein NT-Pro-B Natriuret Pep Total Protein Albumin Triglycerides Arterial Blood Glucose Arterial Blood Ionized Calcium Urine WBC (Auto) U Epithel Cells (Auto) Urine Creatinine Random Vancomycin Coronavirus (PCR) SARS-CoV-2 IgG Ab 03/17/20 03/17/20 03/17/20 11:55 11:55 17:20 WBC RBC Hgb Hct MCH MCHC RDW Lymph % (Auto) Gray % (Auto) Lymph # (Auto) Gray # (Auto) Seg Neutrophils % Seg Neutrophils # APTT D-Dimer Heparin Anti-Xa Level ABG pH POC ABG pCO2 POC ABG pO2 ABG pO2 ABG HCO3 ABG Base Excess ABG Hemoglobin 10.2 L ABG Oxyhemoglobin ABG Sodium ABG Potassium ABG Chloride ABG Glucose 137 H Oxyhemoglobin Carboxyhemoglobin Sodium Potassium Chloride Carbon Dioxide BUN 21 H Creatinine 0.5 L Glucose 118 H POC Glucose 178 H Hemoglobin A1c Lactic Acid Calcium Ferritin Total Bilirubin AST ALT Lactate Dehydrogenase C-Reactive Protein NT-Pro-B Natriuret Pep Total Protein Albumin Triglycerides Arterial Blood Glucose 137 H Arterial Blood Ionized Calcium Urine WBC (Auto) U Epithel Cells (Auto) Urine Creatinine Random Vancomycin Coronavirus (PCR) SARS-CoV-2 IgG Ab 03/18/20 03/18/20 03/18/20 00:16 03:33 05:48 WBC RBC Hgb Hct MCH MCHC RDW Lymph % (Auto) Gray % (Auto) Lymph # (Auto) Gray # (Auto) Seg Neutrophils % Seg Neutrophils # APTT D-Dimer Heparin Anti-Xa Level ABG pH 7.568 H POC ABG pCO2 30.6 L POC ABG pO2 167.6 H ABG pO2 ABG HCO3 ABG Base Excess ABG Hemoglobin 10.9 L ABG Oxyhemoglobin ABG Sodium 133.8 L ABG Potassium ABG Chloride ABG Glucose 125 H Oxyhemoglobin Carboxyhemoglobin Sodium Potassium Chloride Carbon Dioxide BUN Creatinine Glucose POC Glucose 119 H 114 H Hemoglobin A1c Lactic Acid Calcium Ferritin Total Bilirubin AST ALT Lactate Dehydrogenase C-Reactive Protein NT-Pro-B Natriuret Pep Total Protein Albumin Triglycerides Arterial Blood Glucose 125 H Arterial Blood Ionized Calcium Urine WBC (Auto) U Epithel Cells (Auto) Urine Creatinine Random Vancomycin Coronavirus (PCR) SARS-CoV-2 IgG Ab 03/18/20 03/18/20 03/18/20 11:46 17:11 23:18 WBC RBC Hgb Hct MCH MCHC RDW Lymph % (Auto) Gray % (Auto) Lymph # (Auto) Gray # (Auto) Seg Neutrophils % Seg Neutrophils # APTT D-Dimer Heparin Anti-Xa Level ABG pH POC ABG pCO2 POC ABG pO2 ABG pO2 ABG HCO3 ABG Base Excess ABG Hemoglobin ABG Oxyhemoglobin ABG Sodium ABG Potassium ABG Chloride ABG Glucose Oxyhemoglobin Carboxyhemoglobin Sodium Potassium Chloride Carbon Dioxide BUN Creatinine Glucose POC Glucose 165 H 155 H 142 H Hemoglobin A1c Lactic Acid Calcium Ferritin Total Bilirubin AST ALT Lactate Dehydrogenase C-Reactive Protein NT-Pro-B Natriuret Pep Total Protein Albumin Triglycerides Arterial Blood Glucose Arterial Blood Ionized Calcium Urine WBC (Auto) U Epithel Cells (Auto) Urine Creatinine Random Vancomycin Coronavirus (PCR) SARS-CoV-2 IgG Ab 03/19/20 03/19/20 03/19/20 04:41 05:03 10:47 WBC RBC Hgb Hct MCH MCHC RDW Lymph % (Auto) Gray % (Auto) Lymph # (Auto) Gray # (Auto) Seg Neutrophils % Seg Neutrophils # APTT D-Dimer Heparin Anti-Xa Level ABG pH 7.041 L 7.231 L POC ABG pCO2 100.4 H 67.5 H POC ABG pO2 142.4 H ABG pO2 ABG HCO3 ABG Base Excess ABG Hemoglobin 11.2 L 9.7 L ABG Oxyhemoglobin ABG Sodium 135.8 L 134.8 L ABG Potassium 5.3 H 4.8 H ABG Chloride ABG Glucose 150 H 160 H Oxyhemoglobin Carboxyhemoglobin 1.6 H Sodium Potassium Chloride Carbon Dioxide BUN Creatinine Glucose POC Glucose 123 H Hemoglobin A1c Lactic Acid Calcium Ferritin Total Bilirubin AST ALT Lactate Dehydrogenase C-Reactive Protein NT-Pro-B Natriuret Pep Total Protein Albumin Triglycerides Arterial Blood Glucose 150 H 160 H Arterial Blood Ionized Calcium Urine WBC (Auto) U Epithel Cells (Auto) Urine Creatinine Random Vancomycin Coronavirus (PCR) SARS-CoV-2 IgG Ab 03/19/20 03/19/20 03/19/20 11:41 14:00 14:00 WBC RBC Hgb 10.0 L Hct MCH 26 L MCHC RDW 20.5 H Lymph % (Auto) Gray % (Auto) Lymph # (Auto) Gray # (Auto) Seg Neutrophils % Seg Neutrophils # APTT 22.4 L D-Dimer Heparin Anti-Xa Level ABG pH POC ABG pCO2 POC ABG pO2 ABG pO2 ABG HCO3 ABG Base Excess ABG Hemoglobin ABG Oxyhemoglobin ABG Sodium ABG Potassium ABG Chloride ABG Glucose Oxyhemoglobin Carboxyhemoglobin Sodium Potassium Chloride Carbon Dioxide BUN Creatinine Glucose POC Glucose 153 H Hemoglobin A1c Lactic Acid Calcium Ferritin Total Bilirubin AST ALT Lactate Dehydrogenase C-Reactive Protein NT-Pro-B Natriuret Pep Total Protein Albumin Triglycerides Arterial Blood Glucose Arterial Blood Ionized Calcium Urine WBC (Auto) U Epithel Cells (Auto) Urine Creatinine Random Vancomycin Coronavirus (PCR) SARS-CoV-2 IgG Ab 03/19/20 03/19/20 03/19/20 14:00 14:40 21:29 WBC RBC Hgb Hct MCH MCHC RDW Lymph % (Auto) Gray % (Auto) Lymph # (Auto) Gray # (Auto) Seg Neutrophils % Seg Neutrophils # APTT D-Dimer Heparin Anti-Xa Level ABG pH 7.168 L POC ABG pCO2 79.0 H POC ABG pO2 56.5 L 61.2 L ABG pO2 ABG HCO3 ABG Base Excess ABG Hemoglobin 10.8 L 10.0 L ABG Oxyhemoglobin 82.6 L 89.5 L ABG Sodium 135.6 L ABG Potassium ABG Chloride ABG Glucose 214 H 99 H Oxyhemoglobin Carboxyhemoglobin 2.0 H Sodium Potassium Chloride Carbon Dioxide BUN 42 H Creatinine 2.5 H D Glucose 235 H POC Glucose Hemoglobin A1c Lactic Acid Calcium Ferritin Total Bilirubin AST ALT Lactate Dehydrogenase C-Reactive Protein NT-Pro-B Natriuret Pep Total Protein Albumin Triglycerides Arterial Blood Glucose 214 H 99 H Arterial Blood Ionized Calcium Urine WBC (Auto) U Epithel Cells (Auto) Urine Creatinine Random Vancomycin Coronavirus (PCR) SARS-CoV-2 IgG Ab 03/19/20 03/20/20 03/20/20 21:56 05:00 05:00 WBC RBC Hgb Hct MCH MCHC RDW Lymph % (Auto) Gray % (Auto) Lymph # (Auto) Gray # (Auto) Seg Neutrophils % Seg Neutrophils # APTT D-Dimer Heparin Anti-Xa Level 0.26 L ABG pH POC ABG pCO2 POC ABG pO2 ABG pO2 ABG HCO3 ABG Base Excess ABG Hemoglobin ABG Oxyhemoglobin ABG Sodium ABG Potassium ABG Chloride ABG Glucose Oxyhemoglobin Carboxyhemoglobin Sodium Potassium Chloride Carbon Dioxide BUN 48 H Creatinine 2.2 H Glucose 138 H POC Glucose Hemoglobin A1c Lactic Acid Calcium Ferritin Total Bilirubin AST ALT Lactate Dehydrogenase C-Reactive Protein NT-Pro-B Natriuret Pep Total Protein Albumin Triglycerides Arterial Blood Glucose Arterial Blood Ionized Calcium Urine WBC (Auto) U Epithel Cells (Auto) Urine Creatinine Random Vancomycin 54.2 H Coronavirus (PCR) SARS-CoV-2 IgG Ab 03/20/20 03/20/20 03/20/20 05:16 07:15 11:52 WBC RBC Hgb Hct MCH MCHC RDW Lymph % (Auto) Gray % (Auto) Lymph # (Auto) Gray # (Auto) Seg Neutrophils % Seg Neutrophils # APTT D-Dimer Heparin Anti-Xa Level 0.10 L ABG pH POC ABG pCO2 POC ABG pO2 ABG pO2 ABG HCO3 ABG Base Excess ABG Hemoglobin ABG Oxyhemoglobin ABG Sodium ABG Potassium ABG Chloride ABG Glucose Oxyhemoglobin Carboxyhemoglobin Sodium Potassium Chloride Carbon Dioxide BUN Creatinine Glucose POC Glucose 128 H 145 H Hemoglobin A1c Lactic Acid Calcium Ferritin Total Bilirubin AST ALT Lactate Dehydrogenase C-Reactive Protein NT-Pro-B Natriuret Pep Total Protein Albumin Triglycerides Arterial Blood Glucose Arterial Blood Ionized Calcium Urine WBC (Auto) U Epithel Cells (Auto) Urine Creatinine Random Vancomycin Coronavirus (PCR) SARS-CoV-2 IgG Ab 03/20/20 03/20/20 03/20/20 13:44 14:55 17:04 WBC RBC Hgb Hct MCH MCHC RDW Lymph % (Auto) Gray % (Auto) Lymph # (Auto) Gray # (Auto) Seg Neutrophils % Seg Neutrophils # APTT D-Dimer Heparin Anti-Xa Level 0.79 H ABG pH POC ABG pCO2 POC ABG pO2 ABG pO2 ABG HCO3 ABG Base Excess ABG Hemoglobin ABG Oxyhemoglobin ABG Sodium ABG Potassium ABG Chloride ABG Glucose Oxyhemoglobin Carboxyhemoglobin Sodium Potassium Chloride Carbon Dioxide BUN Creatinine Glucose POC Glucose 179 H Hemoglobin A1c Lactic Acid Calcium Ferritin Total Bilirubin AST ALT Lactate Dehydrogenase C-Reactive Protein NT-Pro-B Natriuret Pep Total Protein Albumin Triglycerides Arterial Blood Glucose Arterial Blood Ionized Calcium Urine WBC (Auto) U Epithel Cells (Auto) Urine Creatinine 137.9 H Random Vancomycin Coronavirus (PCR) SARS-CoV-2 IgG Ab 03/20/20 03/21/20 03/21/20 23:23 05:29 08:37 WBC RBC Hgb Hct MCH MCHC RDW Lymph % (Auto) Gray % (Auto) Lymph # (Auto) Gray # (Auto) Seg Neutrophils % Seg Neutrophils # APTT D-Dimer Heparin Anti-Xa Level ABG pH POC ABG pCO2 POC ABG pO2 210.3 H ABG pO2 ABG HCO3 ABG Base Excess ABG Hemoglobin 9.5 L ABG Oxyhemoglobin ABG Sodium 132.1 L ABG Potassium ABG Chloride ABG Glucose 179 H Oxyhemoglobin Carboxyhemoglobin Sodium Potassium Chloride Carbon Dioxide BUN Creatinine Glucose POC Glucose 168 H 157 H Hemoglobin A1c Lactic Acid Calcium Ferritin Total Bilirubin AST ALT Lactate Dehydrogenase C-Reactive Protein NT-Pro-B Natriuret Pep Total Protein Albumin Triglycerides Arterial Blood Glucose 179 H Arterial Blood Ionized Calcium 4.5 L Urine WBC (Auto) U Epithel Cells (Auto) Urine Creatinine Random Vancomycin Coronavirus (PCR) SARS-CoV-2 IgG Ab 03/21/20 03/21/20 03/21/20 12:01 12:20 17:12 WBC RBC Hgb Hct MCH MCHC RDW Lymph % (Auto) Gray % (Auto) Lymph # (Auto) Gray # (Auto) Seg Neutrophils % Seg Neutrophils # APTT D-Dimer Heparin Anti-Xa Level ABG pH POC ABG pCO2 POC ABG pO2 ABG pO2 ABG HCO3 ABG Base Excess ABG Hemoglobin ABG Oxyhemoglobin ABG Sodium ABG Potassium ABG Chloride ABG Glucose Oxyhemoglobin Carboxyhemoglobin Sodium 133 L Potassium Chloride Carbon Dioxide 19 L BUN 56 H Creatinine 2.3 H Glucose 157 H POC Glucose 171 H 215 H Hemoglobin A1c Lactic Acid Calcium 6.8 L D Ferritin Total Bilirubin AST 54 H ALT 84 H Lactate Dehydrogenase C-Reactive Protein NT-Pro-B Natriuret Pep Total Protein 4.4 L Albumin 1.7 L Triglycerides Arterial Blood Glucose Arterial Blood Ionized Calcium Urine WBC (Auto) U Epithel Cells (Auto) Urine Creatinine Random Vancomycin Coronavirus (PCR) SARS-CoV-2 IgG Ab 03/21/20 03/22/20 03/22/20 23:14 00:42 02:57 WBC RBC Hgb 9.3 L Hct 30.2 L MCH MCHC RDW Lymph % (Auto) Gray % (Auto) Lymph # (Auto) Gray # (Auto) Seg Neutrophils % Seg Neutrophils # APTT D-Dimer Heparin Anti-Xa Level ABG pH POC ABG pCO2 POC ABG pO2 141.4 H ABG pO2 ABG HCO3 ABG Base Excess ABG Hemoglobin 9.4 L ABG Oxyhemoglobin ABG Sodium 132.3 L ABG Potassium 4.6 H ABG Chloride ABG Glucose 217 H Oxyhemoglobin Carboxyhemoglobin Sodium Potassium Chloride Carbon Dioxide BUN Creatinine Glucose POC Glucose 191 H Hemoglobin A1c Lactic Acid Calcium Ferritin Total Bilirubin AST ALT Lactate Dehydrogenase C-Reactive Protein NT-Pro-B Natriuret Pep Total Protein Albumin Triglycerides Arterial Blood Glucose 217 H Arterial Blood Ionized Calcium Urine WBC (Auto) U Epithel Cells (Auto) Urine Creatinine Random Vancomycin Coronavirus (PCR) SARS-CoV-2 IgG Ab 03/22/20 03/22/20 03/22/20 05:13 08:00 08:00 WBC RBC 3.34 L Hgb 8.4 L Hct 26.8 L MCH 25 L MCHC RDW 20.2 H Lymph % (Auto) 7.7 L Gray % (Auto) Lymph # (Auto) 0.7 L Gray # (Auto) Seg Neutrophils % 84.0 H Seg Neutrophils # 7.8 H APTT D-Dimer Heparin Anti-Xa Level ABG pH POC ABG pCO2 POC ABG pO2 ABG pO2 ABG HCO3 ABG Base Excess ABG Hemoglobin ABG Oxyhemoglobin ABG Sodium ABG Potassium ABG Chloride ABG Glucose Oxyhemoglobin Carboxyhemoglobin Sodium 134 L Potassium Chloride Carbon Dioxide BUN 64 H Creatinine 2.3 H Glucose 207 H POC Glucose 201 H Hemoglobin A1c Lactic Acid Calcium Ferritin Total Bilirubin AST ALT Lactate Dehydrogenase C-Reactive Protein NT-Pro-B Natriuret Pep Total Protein Albumin Triglycerides Arterial Blood Glucose Arterial Blood Ionized Calcium Urine WBC (Auto) U Epithel Cells (Auto) Urine Creatinine Random Vancomycin Coronavirus (PCR) SARS-CoV-2 IgG Ab 03/22/20 03/22/20 03/22/20 11:17 15:00 16:53 WBC RBC Hgb Hct MCH MCHC RDW Lymph % (Auto) Gray % (Auto) Lymph # (Auto) Gray # (Auto) Seg Neutrophils % Seg Neutrophils # APTT D-Dimer Heparin Anti-Xa Level ABG pH POC ABG pCO2 POC ABG pO2 ABG pO2 ABG HCO3 ABG Base Excess ABG Hemoglobin ABG Oxyhemoglobin ABG Sodium ABG Potassium ABG Chloride ABG Glucose Oxyhemoglobin Carboxyhemoglobin Sodium Potassium Chloride Carbon Dioxide BUN Creatinine Glucose POC Glucose 198 H 182 H Hemoglobin A1c Lactic Acid Calcium Ferritin Total Bilirubin AST ALT Lactate Dehydrogenase C-Reactive Protein NT-Pro-B Natriuret Pep Total Protein Albumin Triglycerides Arterial Blood Glucose Arterial Blood Ionized Calcium Urine WBC (Auto) > 182.0 H U Epithel Cells (Auto) 17.0 H Urine Creatinine Random Vancomycin Coronavirus (PCR) SARS-CoV-2 IgG Ab 03/22/20 03/22/20 03/23/20 23:17 23:27 05:30 WBC RBC Hgb Hct MCH MCHC RDW Lymph % (Auto) Gray % (Auto) Lymph # (Auto) Gray # (Auto) Seg Neutrophils % Seg Neutrophils # APTT D-Dimer Heparin Anti-Xa Level 0.17 L ABG pH POC ABG pCO2 POC ABG pO2 ABG pO2 ABG HCO3 ABG Base Excess ABG Hemoglobin ABG Oxyhemoglobin ABG Sodium ABG Potassium ABG Chloride ABG Glucose Oxyhemoglobin Carboxyhemoglobin Sodium Potassium Chloride Carbon Dioxide BUN Creatinine Glucose POC Glucose 235 H 283 H Hemoglobin A1c Lactic Acid Calcium Ferritin Total Bilirubin AST ALT Lactate Dehydrogenase C-Reactive Protein NT-Pro-B Natriuret Pep Total Protein Albumin Triglycerides Arterial Blood Glucose Arterial Blood Ionized Calcium Urine WBC (Auto) U Epithel Cells (Auto) Urine Creatinine Random Vancomycin Coronavirus (PCR) SARS-CoV-2 IgG Ab 03/23/20 03/23/20 03/23/20 06:00 09:30 09:30 WBC RBC Hgb 8.8 L Hct 28.4 L MCH MCHC RDW Lymph % (Auto) Gray % (Auto) Lymph # (Auto) Gray # (Auto) Seg Neutrophils % Seg Neutrophils # APTT D-Dimer 1509.37 H Heparin Anti-Xa Level ABG pH POC ABG pCO2 POC ABG pO2 ABG pO2 ABG HCO3 ABG Base Excess ABG Hemoglobin ABG Oxyhemoglobin ABG Sodium ABG Potassium ABG Chloride ABG Glucose Oxyhemoglobin Carboxyhemoglobin Sodium Potassium Chloride Carbon Dioxide BUN Creatinine Glucose POC Glucose Hemoglobin A1c Lactic Acid Calcium Ferritin 284.9 H Total Bilirubin AST ALT Lactate Dehydrogenase C-Reactive Protein NT-Pro-B Natriuret Pep Total Protein Albumin Triglycerides Arterial Blood Glucose Arterial Blood Ionized Calcium Urine WBC (Auto) U Epithel Cells (Auto) Urine Creatinine Random Vancomycin Coronavirus (PCR) SARS-CoV-2 IgG Ab 03/23/20 03/23/20 03/23/20 09:30 11:54 12:00 WBC RBC Hgb Hct MCH MCHC RDW Lymph % (Auto) Gray % (Auto) Lymph # (Auto) Gray # (Auto) Seg Neutrophils % Seg Neutrophils # APTT D-Dimer Heparin Anti-Xa Level 1.87 H ABG pH POC ABG pCO2 POC ABG pO2 ABG pO2 ABG HCO3 ABG Base Excess ABG Hemoglobin ABG Oxyhemoglobin ABG Sodium ABG Potassium ABG Chloride ABG Glucose Oxyhemoglobin Carboxyhemoglobin Sodium Potassium 5.2 H Chloride 110.1 H Carbon Dioxide BUN 57 H Creatinine 1.4 H Glucose 318 H POC Glucose 287 H Hemoglobin A1c Lactic Acid Calcium Ferritin Total Bilirubin AST ALT Lactate Dehydrogenase 414 H C-Reactive Protein 26.30 H NT-Pro-B Natriuret Pep Total Protein Albumin Triglycerides Arterial Blood Glucose Arterial Blood Ionized Calcium Urine WBC (Auto) U Epithel Cells (Auto) Urine Creatinine Random Vancomycin Coronavirus (PCR) SARS-CoV-2 IgG Ab 03/23/20 03/23/20 03/23/20 17:42 23:27 Unknown WBC RBC Hgb Hct MCH MCHC RDW Lymph % (Auto) Gray % (Auto) Lymph # (Auto) Gray # (Auto) Seg Neutrophils % Seg Neutrophils # APTT D-Dimer Heparin Anti-Xa Level ABG pH POC ABG pCO2 POC ABG pO2 81.6 L ABG pO2 ABG HCO3 ABG Base Excess ABG Hemoglobin 10.1 L ABG Oxyhemoglobin ABG Sodium ABG Potassium 5.1 H ABG Chloride 109.0 H ABG Glucose 295 H Oxyhemoglobin Carboxyhemoglobin Sodium Potassium Chloride Carbon Dioxide BUN Creatinine Glucose POC Glucose 281 H 266 H Hemoglobin A1c Lactic Acid Calcium Ferritin Total Bilirubin AST ALT Lactate Dehydrogenase C-Reactive Protein NT-Pro-B Natriuret Pep Total Protein Albumin Triglycerides Arterial Blood Glucose 295 H Arterial Blood Ionized Calcium Urine WBC (Auto) U Epithel Cells (Auto) Urine Creatinine Random Vancomycin Coronavirus (PCR) SARS-CoV-2 IgG Ab 03/24/20 03/24/20 03/24/20 02:08 03:50 05:31 WBC RBC Hgb Hct MCH MCHC RDW Lymph % (Auto) Gray % (Auto) Lymph # (Auto) Gray # (Auto) Seg Neutrophils % Seg Neutrophils # APTT D-Dimer Heparin Anti-Xa Level ABG pH 7.452 H POC ABG pCO2 POC ABG pO2 ABG pO2 96.6 H ABG HCO3 26.7 H ABG Base Excess ABG Hemoglobin 9.0 L ABG Oxyhemoglobin ABG Sodium ABG Potassium ABG Chloride ABG Glucose Oxyhemoglobin Carboxyhemoglobin Sodium 156 H D Potassium 5.4 H Chloride 120.4 H Carbon Dioxide BUN 54 H Creatinine Glucose 352 H POC Glucose 307 H Hemoglobin A1c Lactic Acid Calcium Ferritin Total Bilirubin AST ALT Lactate Dehydrogenase C-Reactive Protein NT-Pro-B Natriuret Pep Total Protein Albumin Triglycerides Arterial Blood Glucose Arterial Blood Ionized Calcium Urine WBC (Auto) U Epithel Cells (Auto) Urine Creatinine Random Vancomycin Coronavirus (PCR) SARS-CoV-2 IgG Ab
--- NOTE | 2020-03-24 12:09 | Progress Note ---
Assessment and Plan Cardiopulmoanry arrest with ROSC Acute hypoxemic respiratory failure on MVS COVID 19 infection MICHELLE Extreme obesity Pulmonary HTN Obesity hypoventilation syndrome - will get NM brain flow scan - continue Dexamethasone 4 mg IV q8h re: tentative herniation - kayexalate 30 gms X 1 re: hyperkalemia - discontinue Varela catheter - continue care as below otherwise; - continue Lantus at 40 units SQ daily - continue to wean supplemental oxygen for target O2 sat's > 92% acutely; keep peep at 14 - azotemia per nephrology - continue full dose IV heparin for anticoagulation - continue difficult airway sign - continue Seroquel 300 mg BID for sedation / anxiolysis - continue bowel regimen - adjust Geodon dose based on response - prn gentle diuresis; monitor output and follow renal function/electrolytes - contact and airborne isolation per facility protocols for COVID - Daily SAT's and SBT assessment as tolerated - continue accuchecks with glycemic control per SSI (While critically ill target blood glucose of 140-180 mg/dL; avoid hypoglycemia) - sedation prn for target RASS -1 to -2 - VAP bundle addressed - continue lung protective strategies - continue bronchodilators with pulmonary hygiene per RT - wean per pulmonary driven protocols otherwise - Varela catheter in this critically ill patient - Conservative fluid management - avoid nephrotoxins, renally dose all medications - Empiric antibiotics to include HAP coverage (on Vanc and Cefepime); adjust per ID recommendations and clinical response - prn analgesia per CPOT score - Maintenance of sleep-wake cycle, avoid delirium - continue enteral nutritional support at goal rate as tolerated - G.I. & VTE prophylaxis withy Famotidine and Lovenox - PT/OT/ROM exercises - continue mobility protocols for pressure ulcer prophylaxis - Monitor hemodynamics closely - continue other care per attending / other consultants - discharge planning ongoing concurrently .... Re-evaluate in am & prn CONDITION: CRITICAL PROGNOSIS: GUARDED CODE STATUS: FULL CODE The high probability of a clinically significant, sudden or life-threatening deterioration of the [respiratory, cardiovascular and neurologic] system (s) required my full and direct attention, intervention and personal management. The aggregate critical care time was [33] minutes without overlap. Time includes s pent on; [x] Data Review and interpretation [x] Patient assessment and monitoring of vital signs [x] Documentation [x] Medication orders and management Subjective Date of service: 03/24/20 Principal diagnosis: Cardiac arrest; Ac. hypoxemic resp failure; COVID 19 infxn; Pulm HTN; OHS Interval history: Patient is seen today for: Cardiopulmoanry arrest with ROSC; Acute hypoxemic respiratory failure on MVS; COVID; Extreme obesity; Pulmonary HTN; Obesity hypoventilation syndrome Seen and examined at bedside; 24hour events reviewed; nursing and respiratory care staff consulted; no adverse overnight events reported to me; resting peacefully in bed; remains on MVS; pupils no longer dilated todsay but otherwise AMS is persistent; neurology notes reviewed Objective Vital Signs - 12hr 03/24/20 03/24/20 03/24/20 00:15 00:25 00:30 Temperature 99.8 F H Pulse Rate 94 H 94 H Pulse Rate [ From Monitor] Respiratory 25 H 25 H Rate Blood Pressure 135/75 130/71 O2 Sat by Pulse 97 97 Oximetry 03/24/20 03/24/20 03/24/20 00:45 01:00 01:15 Temperature Pulse Rate 92 H 94 H 94 H Pulse Rate [ From Monitor] Respiratory 25 H 25 H 25 H Rate Blood Pressure 125/67 143/72 147/78 O2 Sat by Pulse 97 97 98 Oximetry 03/24/20 03/24/20 03/24/20 01:30 01:45 02:00 Temperature Pulse Rate 95 H 96 H 96 H Pulse Rate [ From Monitor] Respiratory 25 H 25 H 25 H Rate Blood Pressure 150/80 147/83 148/78 O2 Sat by Pulse 98 98 98 Oximetry 03/24/20 03/24/20 03/24/20 02:15 02:30 02:45 Temperature Pulse Rate 95 H 95 H 93 H Pulse Rate [ From Monitor] Respiratory 25 H 25 H 25 H Rate Blood Pressure 141/76 142/75 145/79 O2 Sat by Pulse 97 98 98 Oximetry 03/24/20 03/24/20 03/24/20 03:00 03:15 03:30 Temperature Pulse Rate 92 H 92 H 91 H Pulse Rate [ From Monitor] Respiratory 25 H 25 H 25 H Rate Blood Pressure 148/78 148/81 148/81 O2 Sat by Pulse 98 98 98 Oximetry 03/24/20 03/24/20 03/24/20 03:42 03:45 04:00 Temperature 100.4 F H Pulse Rate 90 89 88 Pulse Rate [ 91 H From Monitor] Respiratory 25 H 25 H Rate Blood Pressure 150/80 150/80 144/75 O2 Sat by Pulse 98 98 98 Oximetry 03/24/20 03/24/20 03/24/20 04:15 04:30 04:45 Temperature Pulse Rate 90 95 H 95 H Pulse Rate [ From Monitor] Respiratory 25 H 25 H 26 H Rate Blood Pressure 135/67 138/69 146/71 O2 Sat by Pulse 98 98 99 Oximetry 03/24/20 03/24/20 03/24/20 05:01 05:15 05:30 Temperature Pulse Rate 91 H 89 88 Pulse Rate [ From Monitor] Respiratory 25 H 25 H 25 H Rate Blood Pressure 142/71 139/69 141/72 O2 Sat by Pulse 98 99 98 Oximetry 03/24/20 03/24/20 03/24/20 05:45 06:01 06:15 Temperature Pulse Rate 87 87 87 Pulse Rate [ From Monitor] Respiratory 26 H 25 H 25 H Rate Blood Pressure 140/72 141/72 140/71 O2 Sat by Pulse 98 98 98 Oximetry 03/24/20 03/24/20 03/24/20 06:31 06:45 07:00 Temperature Pulse Rate 87 87 88 Pulse Rate [ From Monitor] Respiratory 25 H 25 H 25 H Rate Blood Pressure 139/73 145/76 148/76 O2 Sat by Pulse 98 98 98 Oximetry 03/24/20 03/24/20 03/24/20 07:15 07:30 07:45 Temperature Pulse Rate 89 88 90 Pulse Rate [ From Monitor] Respiratory 25 H 26 H 25 H Rate Blood Pressure 153/81 152/81 155/81 O2 Sat by Pulse 98 97 98 Oximetry 03/24/20 03/24/20 03/24/20 08:00 08:01 08:12 Temperature 99.2 F Pulse Rate 90 90 89 Pulse Rate [ 90 From Monitor] Respiratory 21 25 H Rate Blood Pressure 159/84 155/85 O2 Sat by Pulse 98 98 98 Oximetry 03/24/20 03/24/20 03/24/20 08:15 08:30 08:45 Temperature Pulse Rate 90 90 91 H Pulse Rate [ From Monitor] Respiratory 25 H 8 L 23 Rate Blood Pressure 155/85 155/85 153/81 O2 Sat by Pulse 98 97 96 Oximetry 03/24/20 03/24/20 03/24/20 08:53 09:01 09:15 Temperature 99.2 F Pulse Rate 90 88 Pulse Rate [ From Monitor] Respiratory 17 24 Rate Blood Pressure 152/82 151/83 O2 Sat by Pulse 97 98 Oximetry 03/24/20 03/24/20 03/24/20 09:31 09:45 10:00 Temperature Pulse Rate 90 89 89 Pulse Rate [ From Monitor] Respiratory 11 L 25 H 25 H Rate Blood Pressure 145/77 141/73 147/79 O2 Sat by Pulse 97 Oximetry 03/24/20 03/24/20 03/24/20 10:15 10:30 10:45 Temperature Pulse Rate 87 88 87 Pulse Rate [ From Monitor] Respiratory 25 H 25 H 25 H Rate Blood Pressure 146/76 151/82 149/77 O2 Sat by Pulse 97 97 96 Oximetry 03/24/20 03/24/20 11:01 11:29 Temperature Pulse Rate 88 88 Pulse Rate [ From Monitor] Respiratory 25 H Rate Blood Pressure 128/63 146/74 O2 Sat by Pulse 97 98 Oximetry Constitutional: no acute distress, other (young obese female with moderately increased respiratory effort at rest on MVS) Eyes: non-icteric ENT: oropharynx moist, oropharyngeal exudate pre (moderate), other (orally intubated, ETT 24 cm ) Neck: supple, no lymphadenopathy, other (large circumference) Effort: mildly labored Ascultation: Bilateral: diminished breath sounds, rhonchi Percussion: Bilateral: not dull Cardiovascular: regular rate and rhythm, other (S1,S2) Gastrointestinal: normoactive bowel sounds, soft, non-distended (protuberant), other (obese) Integumentary: rash Extremities: no cyanosis, no edema, pulses normal, no ischemia or petechiae Neurologic: pupils equal and round, unable to assess Psychiatric: other (unable to assess) CBC and BMP: 03/23/20 06:00 03/24/20 02:08 ABG, PT/INR, D-dimer: ABG ABG pH 7.452 pH Units (7.350-7.450) H 03/24/20 03:50 POC ABG pCO2 40.0 mmHg (32.0-48.0) 03/23/20 Unknown ABG pCO2 39.2 mm Hg 03/24/20 03:50 POC ABG pO2 81.6 mmHg (83-108) L 03/23/20 Unknown ABG pO2 96.6 mm Hg (80.0-90.0) H 03/24/20 03:50 POC ABG HCO3 21.2 03/23/20 Unknown ABG O2 Saturation 97.6 % (95.0-99.0) 03/24/20 03:50 PT/INR, D-dimer PT 13.9 Sec. (12.2-14.9) 03/19/20 14:00 INR 1.08 (0.87-1.13) 03/19/20 14:00 D-Dimer 1509.37 ng/mlDDU (0-234) H 03/23/20 09:30 Abnormal lab findings: Abnormal Labs 03/09/20 03/09/20 03/09/20 08:27 08:27 08:27 WBC 15.8 H RBC 5.43 H Hgb Hct MCH 24 L MCHC RDW 19.3 H Lymph % (Auto) Ashley % (Auto) 8.2 H Lymph # (Auto) Ashley # (Auto) 1.3 H Seg Neutrophils % 70.4 H Seg Neutrophils # 11.1 H APTT D-Dimer Heparin Anti-Xa Level ABG pH POC ABG pCO2 POC ABG pO2 ABG pO2 ABG HCO3 ABG Base Excess ABG Hemoglobin ABG Oxyhemoglobin ABG Sodium ABG Potassium ABG Chloride ABG Glucose Oxyhemoglobin Carboxyhemoglobin Sodium Potassium Chloride 97.1 L Carbon Dioxide BUN 29 H Creatinine Glucose 178 H POC Glucose Hemoglobin A1c Lactic Acid 3.70 H* Calcium Ferritin Total Bilirubin AST ALT Lactate Dehydrogenase 369 H C-Reactive Protein 3.00 H NT-Pro-B Natriuret Pep Total Protein Albumin Triglycerides Arterial Blood Glucose Arterial Blood Ionized Calcium Urine WBC (Auto) U Epithel Cells (Auto) Urine Creatinine Random Vancomycin Coronavirus (PCR) SARS-CoV-2 IgG Ab 03/09/20 03/09/20 03/09/20 08:27 08:27 08:27 WBC RBC Hgb Hct MCH MCHC RDW Lymph % (Auto) Ashley % (Auto) Lymph # (Auto) Ashley # (Auto) Seg Neutrophils % Seg Neutrophils # APTT D-Dimer 1042.81 H Heparin Anti-Xa Level ABG pH POC ABG pCO2 POC ABG pO2 ABG pO2 ABG HCO3 ABG Base Excess ABG Hemoglobin ABG Oxyhemoglobin ABG Sodium ABG Potassium ABG Chloride ABG Glucose Oxyhemoglobin Carboxyhemoglobin Sodium Potassium Chloride Carbon Dioxide BUN Creatinine Glucose POC Glucose Hemoglobin A1c 8.0 H Lactic Acid Calcium Ferritin Total Bilirubin AST ALT Lactate Dehydrogenase C-Reactive Protein NT-Pro-B Natriuret Pep 2914 H Total Protein Albumin Triglycerides Arterial Blood Glucose Arterial Blood Ionized Calcium Urine WBC (Auto) U Epithel Cells (Auto) Urine Creatinine Random Vancomycin Coronavirus (PCR) SARS-CoV-2 IgG Ab 03/09/20 03/09/20 03/10/20 08:43 23:04 05:23 WBC RBC Hgb Hct MCH MCHC RDW Lymph % (Auto) Ashley % (Auto) Lymph # (Auto) Ashley # (Auto) Seg Neutrophils % Seg Neutrophils # APTT D-Dimer Heparin Anti-Xa Level ABG pH POC ABG pCO2 POC ABG pO2 ABG pO2 ABG HCO3 ABG Base Excess ABG Hemoglobin ABG Oxyhemoglobin ABG Sodium ABG Potassium ABG Chloride ABG Glucose Oxyhemoglobin Carboxyhemoglobin Sodium Potassium Chloride Carbon Dioxide BUN Creatinine Glucose POC Glucose 361 H Hemoglobin A1c Lactic Acid 6.80 H* Calcium Ferritin Total Bilirubin AST ALT Lactate Dehydrogenase C-Reactive Protein NT-Pro-B Natriuret Pep Total Protein Albumin Triglycerides Arterial Blood Glucose Arterial Blood Ionized Calcium Urine WBC (Auto) U Epithel Cells (Auto) Urine Creatinine Random Vancomycin Coronavirus (PCR) Positive A SARS-CoV-2 IgG Ab 03/10/20 03/10/20 03/10/20 08:19 10:49 17:11 WBC RBC Hgb Hct MCH MCHC RDW Lymph % (Auto) Ashley % (Auto) Lymph # (Auto) Ashley # (Auto) Seg Neutrophils % Seg Neutrophils # APTT D-Dimer Heparin Anti-Xa Level ABG pH POC ABG pCO2 POC ABG pO2 ABG pO2 ABG HCO3 ABG Base Excess ABG Hemoglobin ABG Oxyhemoglobin ABG Sodium ABG Potassium ABG Chloride ABG Glucose Oxyhemoglobin Carboxyhemoglobin Sodium Potassium Chloride Carbon Dioxide BUN Creatinine Glucose POC Glucose 371 H 423 H 373 H Hemoglobin A1c Lactic Acid Calcium Ferritin Total Bilirubin AST ALT Lactate Dehydrogenase C-Reactive Protein NT-Pro-B Natriuret Pep Total Protein Albumin Triglycerides Arterial Blood Glucose Arterial Blood Ionized Calcium Urine WBC (Auto) U Epithel Cells (Auto) Urine Creatinine Random Vancomycin Coronavirus (PCR) SARS-CoV-2 IgG Ab 03/11/20 03/11/2003/11/20 00:29 07:52 13:12 WBC RBC Hgb Hct MCH MCHC RDW Lymph % (Auto) Ashley % (Auto) Lymph # (Auto) Ashley # (Auto) Seg Neutrophils % Seg Neutrophils # APTT D-Dimer Heparin Anti-Xa Level ABG pH POC ABG pCO2 POC ABG pO2 ABG pO2 ABG HCO3 ABG Base Excess ABG Hemoglobin ABG Oxyhemoglobin ABG Sodium ABG Potassium ABG Chloride ABG Glucose Oxyhemoglobin Carboxyhemoglobin Sodium Potassium Chloride Carbon Dioxide BUN Creatinine Glucose POC Glucose 242 H 233 H 352 H Hemoglobin A1c Lactic Acid Calcium Ferritin Total Bilirubin AST ALT Lactate Dehydrogenase C-Reactive Protein NT-Pro-B Natriuret Pep Total Protein Albumin Triglycerides Arterial Blood Glucose Arterial Blood Ionized Calcium Urine WBC (Auto) U Epithel Cells (Auto) Urine Creatinine Random Vancomycin Coronavirus (PCR) SARS-CoV-2 IgG Ab 03/11/20 03/11/20 03/12/20 15:24 22:54 08:22 WBC RBC Hgb Hct MCH MCHC RDW Lymph % (Auto) Ashley % (Auto) Lymph # (Auto) Ashley # (Auto) Seg Neutrophils % Seg Neutrophils # APTT D-Dimer Heparin Anti-Xa Level ABG pH POC ABG pCO2 POC ABG pO2 ABG pO2 ABG HCO3 ABG Base Excess ABG Hemoglobin ABG Oxyhemoglobin ABG Sodium ABG Potassium ABG Chloride ABG Glucose Oxyhemoglobin Carboxyhemoglobin Sodium Potassium Chloride Carbon Dioxide BUN Creatinine Glucose POC Glucose 386 H 418 H 431 H Hemoglobin A1c Lactic Acid Calcium Ferritin Total Bilirubin AST ALT Lactate Dehydrogenase C-Reactive Protein NT-Pro-B Natriuret Pep Total Protein Albumin Triglycerides Arterial Blood Glucose Arterial Blood Ionized Calcium Urine WBC (Auto) U Epithel Cells (Auto) Urine Creatinine Random Vancomycin Coronavirus (PCR) SARS-CoV-2 IgG Ab 03/12/20 03/12/20 03/12/20 11:34 16:53 22:20 WBC RBC Hgb Hct MCH MCHC RDW Lymph % (Auto) Ashley % (Auto) Lymph # (Auto) Ashley # (Auto) Seg Neutrophils % Seg Neutrophils # APTT D-Dimer Heparin Anti-Xa Level ABG pH POC ABG pCO2 POC ABG pO2 ABG pO2 ABG HCO3 ABG Base Excess ABG Hemoglobin ABG Oxyhemoglobin ABG Sodium ABG Potassium ABG Chloride ABG Glucose Oxyhemoglobin Carboxyhemoglobin Sodium Potassium Chloride Carbon Dioxide BUN Creatinine Glucose POC Glucose 310 H 358 H 295 H Hemoglobin A1c Lactic Acid Calcium Ferritin Total Bilirubin AST ALT Lactate Dehydrogenase C-Reactive Protein NT-Pro-B Natriuret Pep Total Protein Albumin Triglycerides Arterial Blood Glucose Arterial Blood Ionized Calcium Urine WBC (Auto) U Epithel Cells (Auto) Urine Creatinine Random Vancomycin Coronavirus (PCR) SARS-CoV-2 IgG Ab 03/13/20 03/13/20 03/13/20 05:48 09:15 12:09 WBC 18.3 H RBC Hgb Hct MCH 24 L MCHC 29 L RDW 18.9 H Lymph % (Auto) 7.8 L Ashley % (Auto) 9.7 H Lymph # (Auto) Ashley # (Auto) 1.8 H Seg Neutrophils % 82.0 H Seg Neutrophils # 15.0 H APTT D-Dimer Heparin Anti-Xa Level ABG pH 7.327 L POC ABG pCO2 POC ABG pO2 ABG pO2 73.0 L ABG HCO3 39.3 H ABG Base Excess 10.8 H ABG Hemoglobin 11.2 L ABG Oxyhemoglobin ABG Sodium ABG Potassium ABG Chloride ABG Glucose Oxyhemoglobin 93.4 L Carboxyhemoglobin Sodium Potassium Chloride Carbon Dioxide BUN Creatinine Glucose POC Glucose 216 H Hemoglobin A1c Lactic Acid Calcium Ferritin Total Bilirubin AST ALT Lactate Dehydrogenase C-Reactive Protein NT-Pro-B Natriuret Pep Total Protein Albumin Triglycerides Arterial Blood Glucose Arterial Blood Ionized Calcium Urine WBC (Auto) U Epithel Cells (Auto) Urine Creatinine Random Vancomycin Coronavirus (PCR) SARS-CoV-2 IgG Ab 03/13/20 03/13/20 03/13/20 12:09 12:11 17:23 WBC RBC Hgb Hct MCH MCHC RDW Lymph % (Auto) Ashley % (Auto) Lymph # (Auto) Ashley # (Auto) Seg Neutrophils % Seg Neutrophils # APTT D-Dimer Heparin Anti-Xa Level ABG pH POC ABG pCO2 POC ABG pO2 ABG pO2 ABG HCO3 ABG Base Excess ABG Hemoglobin ABG Oxyhemoglobin ABG Sodium ABG Potassium ABG Chloride ABG Glucose Oxyhemoglobin Carboxyhemoglobin Sodium Potassium 5.1 H Chloride Carbon Dioxide 37 H D BUN Creatinine Glucose 154 H POC Glucose 148 H 217 H Hemoglobin A1c Lactic Acid Calcium Ferritin Total Bilirubin AST 47 H ALT 128 H Lactate Dehydrogenase C-Reactive Protein NT-Pro-B Natriuret Pep Total Protein 5.9 L Albumin 3.0 L Triglycerides Arterial Blood Glucose Arterial Blood Ionized Calcium Urine WBC (Auto) U Epithel Cells (Auto) Urine Creatinine Random Vancomycin Coronavirus (PCR) SARS-CoV-2 IgG Ab 03/14/20 03/14/20 03/14/20 06:15 06:55 09:17 WBC 14.9 H RBC Hgb Hct MCH 25 L MCHC RDW 19.1 H Lymph % (Auto) 9.5 L Ashley % (Auto) Lymph # (Auto) Ashley # (Auto) 0.9 H Seg Neutrophils % 83.8 H Seg Neutrophils # 12.5 H APTT D-Dimer Heparin Anti-Xa Level ABG pH 7.544 H POC ABG pCO2 POC ABG pO2 ABG pO2 92.8 H ABG HCO3 37.3 H ABG Base Excess 13.5 H ABG Hemoglobin 10.5 L ABG Oxyhemoglobin ABG Sodium ABG Potassium ABG Chloride ABG Glucose Oxyhemoglobin Carboxyhemoglobin Sodium Potassium Chloride Carbon Dioxide BUN Creatinine Glucose POC Glucose 182 H Hemoglobin A1c Lactic Acid Calcium Ferritin Total Bilirubin AST ALT Lactate Dehydrogenase C-Reactive Protein NT-Pro-B Natriuret Pep Total Protein Albumin Triglycerides Arterial Blood Glucose Arterial Blood Ionized Calcium Urine WBC (Auto) U Epithel Cells (Auto) Urine Creatinine Random Vancomycin Coronavirus (PCR) SARS-CoV-2 IgG Ab 03/14/20 03/14/20 03/14/20 09:17 11:43 17:47 WBC RBC Hgb Hct MCH MCHC RDW Lymph % (Auto) Ashley % (Auto) Lymph # (Auto) Ashley # (Auto) Seg Neutrophils % Seg Neutrophils # APTT D-Dimer Heparin Anti-Xa Level ABG pH POC ABG pCO2 POC ABG pO2 ABG pO2 ABG HCO3 ABG Base Excess ABG Hemoglobin ABG Oxyhemoglobin ABG Sodium ABG Potassium ABG Chloride ABG Glucose Oxyhemoglobin Carboxyhemoglobin Sodium Potassium Chloride Carbon Dioxide 34 H BUN Creatinine 0.5 L Glucose 204 H POC Glucose 283 H 254 H Hemoglobin A1c Lactic Acid Calcium Ferritin Total Bilirubin 2.60 H AST 82 H ALT 152 H Lactate Dehydrogenase C-Reactive Protein NT-Pro-B Natriuret Pep Total Protein 5.7 L Albumin 3.0 L Triglycerides Arterial Blood Glucose Arterial Blood Ionized Calcium Urine WBC (Auto) U Epithel Cells (Auto) Urine Creatinine Random Vancomycin Coronavirus (PCR) SARS-CoV-2 IgG Ab 03/14/20 03/15/20 03/15/20 23:59 03:08 05:52 WBC RBC Hgb Hct MCH MCHC RDW Lymph % (Auto) Ashley % (Auto) Lymph # (Auto) Ashley # (Auto) Seg Neutrophils % Seg Neutrophils # APTT D-Dimer Heparin Anti-Xa Level ABG pH 7.536 H POC ABG pCO2 POC ABG pO2 ABG pO2 ABG HCO3 ABG Base Excess ABG Hemoglobin 10.7 L ABG Oxyhemoglobin ABG Sodium 135.2 L ABG Potassium ABG Chloride ABG Glucose 317 H Oxyhemoglobin Carboxyhemoglobin Sodium Potassium Chloride Carbon Dioxide BUN Creatinine Glucose POC Glucose 293 H 293 H Hemoglobin A1c Lactic Acid Calcium Ferritin Total Bilirubin AST ALT Lactate Dehydrogenase C-Reactive Protein NT-Pro-B Natriuret Pep Total Protein Albumin Triglycerides Arterial Blood Glucose 317 H Arterial Blood Ionized Calcium 4.5 L Urine WBC (Auto) U Epithel Cells (Auto) Urine Creatinine Random Vancomycin Coronavirus (PCR) SARS-CoV-2 IgG Ab 03/15/20 03/15/20 03/15/20 13:29 17:43 23:26 WBC RBC Hgb Hct MCH MCHC RDW Lymph % (Auto) Ashley % (Auto) Lymph # (Auto) Ashley # (Auto) Seg Neutrophils % Seg Neutrophils # APTT D-Dimer Heparin Anti-Xa Level ABG pH POC ABG pCO2 POC ABG pO2 ABG pO2 ABG HCO3 ABG Base Excess ABG Hemoglobin ABG Oxyhemoglobin ABG Sodium ABG Potassium ABG Chloride ABG Glucose Oxyhemoglobin Carboxyhemoglobin Sodium Potassium Chloride Carbon Dioxide BUN Creatinine Glucose POC Glucose 299 H 327 H 325 H Hemoglobin A1c Lactic Acid Calcium Ferritin Total Bilirubin AST ALT Lactate Dehydrogenase C-Reactive Protein NT-Pro-B Natriuret Pep Total Protein Albumin Triglycerides Arterial Blood Glucose Arterial Blood Ionized Calcium Urine WBC (Auto) U Epithel Cells (Auto) Urine Creatinine Random Vancomycin Coronavirus (PCR) SARS-CoV-2 IgG Ab 03/16/20 03/16/20 03/16/20 01:28 04:44 05:26 WBC RBC Hgb Hct MCH MCHC RDW Lymph % (Auto) Ashley % (Auto) Lymph # (Auto) Ashley # (Auto) Seg Neutrophils % Seg Neutrophils # APTT D-Dimer Heparin Anti-Xa Level ABG pH 7.540 H POC ABG pCO2 POC ABG pO2 ABG pO2 ABG HCO3 ABG Base Excess ABG Hemoglobin 10.5 L ABG Oxyhemoglobin ABG Sodium ABG Potassium ABG Chloride ABG Glucose 312 H Oxyhemoglobin Carboxyhemoglobin Sodium Potassium Chloride Carbon Dioxide BUN 18 H Creatinine Glucose 330 H POC Glucose 264 H Hemoglobin A1c Lactic Acid Calcium Ferritin Total Bilirubin AST ALT Lactate Dehydrogenase C-Reactive Protein NT-Pro-B Natriuret Pep Total Protein Albumin Triglycerides Arterial Blood Glucose 312 H Arterial Blood Ionized Calcium Urine WBC (Auto) U Epithel Cells (Auto) Urine Creatinine Random Vancomycin Coronavirus (PCR) SARS-CoV-2 IgG Ab 03/16/20 03/16/20 03/16/20 11:58 17:51 17:54 WBC RBC Hgb Hct MCH MCHC RDW Lymph % (Auto) Ashley % (Auto) Lymph # (Auto) Ashley # (Auto) Seg Neutrophils % Seg Neutrophils # APTT D-Dimer Heparin Anti-Xa Level ABG pH POC ABG pCO2 58.9 H POC ABG pO2 142.4 H ABG pO2 ABG HCO3 ABG Base Excess ABG Hemoglobin 11.6 L ABG Oxyhemoglobin ABG Sodium 135.9 L ABG Potassium 4.9 H ABG Chloride ABG Glucose 332 H Oxyhemoglobin Carboxyhemoglobin Sodium Potassium Chloride Carbon Dioxide BUN Creatinine Glucose POC Glucose 196 H 285 H Hemoglobin A1c Lactic Acid Calcium Ferritin Total Bilirubin AST ALT Lactate Dehydrogenase C-Reactive Protein NT-Pro-B Natriuret Pep Total Protein Albumin Triglycerides Arterial Blood Glucose 332 H Arterial Blood Ionized Calcium Urine WBC (Auto) U Epithel Cells (Auto) Urine Creatinine Random Vancomycin Coronavirus (PCR) SARS-CoV-2 IgG Ab 03/16/20 03/16/20 03/17/20 17:56 23:43 03:13 WBC RBC Hgb Hct MCH MCHC RDW Lymph % (Auto) Ashley % (Auto) Lymph # (Auto) Ashley # (Auto) Seg Neutrophils % Seg Neutrophils # APTT D-Dimer Heparin Anti-Xa Level ABG pH POC ABG pCO2 POC ABG pO2 ABG pO2 ABG HCO3 ABG Base Excess ABG Hemoglobin ABG Oxyhemoglobin ABG Sodium ABG Potassium ABG Chloride ABG Glucose Oxyhemoglobin Carboxyhemoglobin Sodium Potassium Chloride Carbon Dioxide BUN Creatinine Glucose POC Glucose 258 H Hemoglobin A1c Lactic Acid Calcium Ferritin Total Bilirubin AST ALT Lactate Dehydrogenase C-Reactive Protein NT-Pro-B Natriuret Pep Total Protein Albumin Triglycerides 252 H Arterial Blood Glucose Arterial Blood Ionized Calcium Urine WBC (Auto) U Epithel Cells (Auto) Urine Creatinine Random Vancomycin Coronavirus (PCR) SARS-CoV-2 IgG Ab Reactive A 03/17/20 03/17/20 03/17/20 05:33 11:12 11:55 WBC RBC Hgb 9.2 L Hct 29.7 L MCH 25 L MCHC RDW 19.9 H Lymph % (Auto) Ashley % (Auto) Lymph # (Auto) Ashley # (Auto) Seg Neutrophils % Seg Neutrophils # APTT D-Dimer Heparin Anti-Xa Level ABG pH POC ABG pCO2 POC ABG pO2 ABG pO2 ABG HCO3 ABG Base Excess ABG Hemoglobin ABG Oxyhemoglobin ABG Sodium ABG Potassium ABG Chloride ABG Glucose Oxyhemoglobin Carboxyhemoglobin Sodium Potassium Chloride Carbon Dioxide BUN Creatinine Glucose POC Glucose 157 H 112 H Hemoglobin A1c Lactic Acid Calcium Ferritin Total Bilirubin AST ALT Lactate Dehydrogenase C-Reactive Protein NT-Pro-B Natriuret Pep Total Protein Albumin Triglycerides Arterial Blood Glucose Arterial Blood Ionized Calcium Urine WBC (Auto) U Epithel Cells (Auto) Urine Creatinine Random Vancomycin Coronavirus (PCR) SARS-CoV-2 IgG Ab 03/17/20 03/17/20 03/17/20 11:55 11:55 17:20 WBC RBC Hgb Hct MCH MCHC RDW Lymph % (Auto) Ashley % (Auto) Lymph # (Auto) Ashley # (Auto) Seg Neutrophils % Seg Neutrophils # APTT D-Dimer Heparin Anti-Xa Level ABG pH POC ABG pCO2 POC ABG pO2 ABG pO2 ABG HCO3 ABG Base Excess ABG Hemoglobin 10.2 L ABG Oxyhemoglobin ABG Sodium ABG Potassium ABG Chloride ABG Glucose 137 H Oxyhemoglobin Carboxyhemoglobin Sodium Potassium Chloride Carbon Dioxide BUN 21 H Creatinine 0.5 L Glucose 118 H POC Glucose 178 H Hemoglobin A1c Lactic Acid Calcium Ferritin Total Bilirubin AST ALT Lactate Dehydrogenase C-Reactive Protein NT-Pro-B Natriuret Pep Total Protein Albumin Triglycerides Arterial Blood Glucose 137 H Arterial Blood Ionized Calcium Urine WBC (Auto) U Epithel Cells (Auto) Urine Creatinine Random Vancomycin Coronavirus (PCR) SARS-CoV-2 IgG Ab 03/18/20 03/18/20 03/18/20 00:16 03:33 05:48 WBC RBC Hgb Hct MCH MCHC RDW Lymph % (Auto) Ashley % (Auto) Lymph # (Auto) Ashley # (Auto) Seg Neutrophils % Seg Neutrophils # APTT D-Dimer Heparin Anti-Xa Level ABG pH 7.568 H POC ABG pCO2 30.6 L POC ABG pO2 167.6 H ABG pO2 ABG HCO3 ABG Base Excess ABG Hemoglobin 10.9 L ABG Oxyhemoglobin ABG Sodium 133.8 L ABG Potassium ABG Chloride ABG Glucose 125 H Oxyhemoglobin Carboxyhemoglobin Sodium Potassium Chloride Carbon Dioxide BUN Creatinine Glucose POC Glucose 119 H 114 H Hemoglobin A1c Lactic Acid Calcium Ferritin Total Bilirubin AST ALT Lactate Dehydrogenase C-Reactive Protein NT-Pro-B Natriuret Pep Total Protein Albumin Triglycerides Arterial Blood Glucose 125 H Arterial Blood Ionized Calcium Urine WBC (Auto) U Epithel Cells (Auto) Urine Creatinine Random Vancomycin Coronavirus (PCR) SARS-CoV-2 IgG Ab 03/18/20 03/18/20 03/18/20 11:46 17:11 23:18 WBC RBC Hgb Hct MCH MCHC RDW Lymph % (Auto) Ashley % (Auto) Lymph # (Auto) Ashley # (Auto) Seg Neutrophils % Seg Neutrophils # APTT D-Dimer Heparin Anti-Xa Level ABG pH POC ABG pCO2 POC ABG pO2 ABG pO2 ABG HCO3 ABG Base Excess ABG Hemoglobin ABG Oxyhemoglobin ABG Sodium ABG Potassium ABG Chloride ABG Glucose Oxyhemoglobin Carboxyhemoglobin Sodium Potassium Chloride Carbon Dioxide BUN Creatinine Glucose POC Glucose 165 H 155 H 142 H Hemoglobin A1c Lactic Acid Calcium Ferritin Total Bilirubin AST ALT Lactate Dehydrogenase C-Reactive Protein NT-Pro-B Natriuret Pep Total Protein Albumin Triglycerides Arterial Blood Glucose Arterial Blood Ionized Calcium Urine WBC (Auto) U Epithel Cells (Auto) Urine Creatinine Random Vancomycin Coronavirus (PCR) SARS-CoV-2 IgG Ab 03/19/20 03/19/20 03/19/20 04:41 05:03 10:47 WBC RBC Hgb Hct MCH MCHC RDW Lymph % (Auto) Ashley % (Auto) Lymph # (Auto) Ashley # (Auto) Seg Neutrophils % Seg Neutrophils # APTT D-Dimer Heparin Anti-Xa Level ABG pH 7.041 L 7.231 L POC ABG pCO2 100.4 H 67.5 H POC ABG pO2 142.4 H ABG pO2 ABG HCO3 ABG Base Excess ABG Hemoglobin 11.2 L 9.7 L ABG Oxyhemoglobin ABG Sodium 135.8 L 134.8 L ABG Potassium 5.3 H 4.8 H ABG Chloride ABG Glucose 150 H 160 H Oxyhemoglobin Carboxyhemoglobin 1.6 H Sodium Potassium Chloride Carbon Dioxide BUN Creatinine Glucose POC Glucose 123 H Hemoglobin A1c Lactic Acid Calcium Ferritin Total Bilirubin AST ALT Lactate Dehydrogenase C-Reactive Protein NT-Pro-B Natriuret Pep Total Protein Albumin Triglycerides Arterial Blood Glucose 150 H 160 H Arterial Blood Ionized Calcium Urine WBC (Auto) U Epithel Cells (Auto) Urine Creatinine Random Vancomycin Coronavirus (PCR) SARS-CoV-2 IgG Ab 03/19/20 03/19/20 03/19/20 11:41 14:00 14:00 WBC RBC Hgb 10.0 L Hct MCH 26 L MCHC RDW 20.5 H Lymph % (Auto) Ashley % (Auto) Lymph # (Auto) Ashley # (Auto) Seg Neutrophils % Seg Neutrophils # APTT 22.4 L D-Dimer Heparin Anti-Xa Level ABG pH POC ABG pCO2 POC ABG pO2 ABG pO2 ABG HCO3 ABG Base Excess ABG Hemoglobin ABG Oxyhemoglobin ABG Sodium ABG Potassium ABG Chloride ABG Glucose Oxyhemoglobin Carboxyhemoglobin Sodium Potassium Chloride Carbon Dioxide BUN Creatinine Glucose POC Glucose 153 H Hemoglobin A1c Lactic Acid Calcium Ferritin Total Bilirubin AST ALT Lactate Dehydrogenase C-Reactive Protein NT-Pro-B Natriuret Pep Total Protein Albumin Triglycerides Arterial Blood Glucose Arterial Blood Ionized Calcium Urine WBC (Auto) U Epithel Cells (Auto) Urine Creatinine Random Vancomycin Coronavirus (PCR) SARS-CoV-2 IgG Ab 03/19/20 03/19/20 03/19/20 14:00 14:40 21:29 WBC RBC Hgb Hct MCH MCHC RDW Lymph % (Auto) Ashley % (Auto) Lymph # (Auto) Ashley # (Auto) Seg Neutrophils % Seg Neutrophils # APTT D-Dimer Heparin Anti-Xa Level ABG pH 7.168 L POC ABG pCO2 79.0 H POC ABG pO2 56.5 L 61.2 L ABG pO2 ABG HCO3 ABG Base Excess ABG Hemoglobin 10.8 L 10.0 L ABG Oxyhemoglobin 82.6 L 89.5 L ABG Sodium 135.6 L ABG Potassium ABG Chloride ABG Glucose 214 H 99 H Oxyhemoglobin Carboxyhemoglobin 2.0 H Sodium Potassium Chloride Carbon Dioxide BUN 42 H Creatinine 2.5 H D Glucose 235 H POC Glucose Hemoglobin A1c Lactic Acid Calcium Ferritin Total Bilirubin AST ALT Lactate Dehydrogenase C-Reactive Protein NT-Pro-B Natriuret Pep Total Protein Albumin Triglycerides Arterial Blood Glucose 214 H 99 H Arterial Blood Ionized Calcium Urine WBC (Auto) U Epithel Cells (Auto) Urine Creatinine Random Vancomycin Coronavirus (PCR) SARS-CoV-2 IgG Ab 03/19/20 03/20/20 03/20/20 21:56 05:00 05:00 WBC RBC Hgb Hct MCH MCHC RDW Lymph % (Auto) Ashley % (Auto) Lymph # (Auto) Ashley # (Auto) Seg Neutrophils % Seg Neutrophils # APTT D-Dimer Heparin Anti-Xa Level 0.26 L ABG pH POC ABG pCO2 POC ABG pO2 ABG pO2 ABG HCO3 ABG Base Excess ABG Hemoglobin ABG Oxyhemoglobin ABG Sodium ABG Potassium ABG Chloride ABG Glucose Oxyhemoglobin Carboxyhemoglobin Sodium Potassium Chloride Carbon Dioxide BUN 48 H Creatinine 2.2 H Glucose 138 H POC Glucose Hemoglobin A1c Lactic Acid Calcium Ferritin Total Bilirubin AST ALT Lactate Dehydrogenase C-Reactive Protein NT-Pro-B Natriuret Pep Total Protein Albumin Triglycerides Arterial Blood Glucose Arterial Blood Ionized Calcium Urine WBC (Auto) U Epithel Cells (Auto) Urine Creatinine Random Vancomycin 54.2 H Coronavirus (PCR) SARS-CoV-2 IgG Ab 03/20/20 03/20/20 03/20/20 05:16 07:15 11:52 WBC RBC Hgb Hct MCH MCHC RDW Lymph % (Auto) Ashley % (Auto) Lymph # (Auto) Ashley # (Auto) Seg Neutrophils % Seg Neutrophils # APTT D-Dimer Heparin Anti-Xa Level 0.10 L ABG pH POC ABG pCO2 POC ABG pO2 ABG pO2 ABG HCO3 ABG Base Excess ABG Hemoglobin ABG Oxyhemoglobin ABG Sodium ABG Potassium ABG Chloride ABG Glucose Oxyhemoglobin Carboxyhemoglobin Sodium Potassium Chloride Carbon Dioxide BUN Creatinine Glucose POC Glucose 128 H 145 H Hemoglobin A1c Lactic Acid Calcium Ferritin Total Bilirubin AST ALT Lactate Dehydrogenase C-Reactive Protein NT-Pro-B Natriuret Pep Total Protein Albumin Triglycerides Arterial Blood Glucose Arterial Blood Ionized Calcium Urine WBC (Auto) U Epithel Cells (Auto) Urine Creatinine Random Vancomycin Coronavirus (PCR) SARS-CoV-2 IgG Ab 03/20/20 03/20/20 03/20/20 13:44 14:55 17:04 WBC RBC Hgb Hct MCH MCHC RDW Lymph % (Auto) Ashley % (Auto) Lymph # (Auto) Ashley # (Auto) Seg Neutrophils % Seg Neutrophils # APTT D-Dimer Heparin Anti-Xa Level 0.79 H ABG pH POC ABG pCO2 POC ABG pO2 ABG pO2 ABG HCO3 ABG Base Excess ABG Hemoglobin ABG Oxyhemoglobin ABG Sodium ABG Potassium ABG Chloride ABG Glucose Oxyhemoglobin Carboxyhemoglobin Sodium Potassium Chloride Carbon Dioxide BUN Creatinine Glucose POC Glucose 179 H Hemoglobin A1c Lactic Acid Calcium Ferritin Total Bilirubin AST ALT Lactate Dehydrogenase C-Reactive Protein NT-Pro-B Natriuret Pep Total Protein Albumin Triglycerides Arterial Blood Glucose Arterial Blood Ionized Calcium Urine WBC (Auto) U Epithel Cells (Auto) Urine Creatinine 137.9 H Random Vancomycin Coronavirus (PCR) SARS-CoV-2 IgG Ab 03/20/20 03/21/20 03/21/20 23:23 05:29 08:37 WBC RBC Hgb Hct MCH MCHC RDW Lymph % (Auto) Ashley % (Auto) Lymph # (Auto) Ashley # (Auto) Seg Neutrophils % Seg Neutrophils # APTT D-Dimer Heparin Anti-Xa Level ABG pH POC ABG pCO2 POC ABG pO2 210.3 H ABG pO2 ABG HCO3 ABG Base Excess ABG Hemoglobin 9.5 L ABG Oxyhemoglobin ABG Sodium 132.1 L ABG Potassium ABG Chloride ABG Glucose 179 H Oxyhemoglobin Carboxyhemoglobin Sodium Potassium Chloride Carbon Dioxide BUN Creatinine Glucose POC Glucose 168 H 157 H Hemoglobin A1c Lactic Acid Calcium Ferritin Total Bilirubin AST ALT Lactate Dehydrogenase C-Reactive Protein NT-Pro-B Natriuret Pep Total Protein Albumin Triglycerides Arterial Blood Glucose 179 H Arterial Blood Ionized Calcium 4.5 L Urine WBC (Auto) U Epithel Cells (Auto) Urine Creatinine Random Vancomycin Coronavirus (PCR) SARS-CoV-2 IgG Ab 03/21/20 03/21/20 03/21/20 12:01 12:20 17:12 WBC RBC Hgb Hct MCH MCHC RDW Lymph % (Auto) Ashley % (Auto) Lymph # (Auto) Ashley # (Auto) Seg Neutrophils % Seg Neutrophils # APTT D-Dimer Heparin Anti-Xa Level ABG pH POC ABG pCO2 POC ABG pO2 ABG pO2 ABG HCO3 ABG Base Excess ABG Hemoglobin ABG Oxyhemoglobin ABG Sodium ABG Potassium ABG Chloride ABG Glucose Oxyhemoglobin Carboxyhemoglobin Sodium 133 L Potassium Chloride Carbon Dioxide 19 L BUN 56 H Creatinine 2.3 H Glucose 157 H POC Glucose 171 H 215 H Hemoglobin A1c Lactic Acid Calcium 6.8 L D Ferritin Total Bilirubin AST 54 H ALT 84 H Lactate Dehydrogenase C-Reactive Protein NT-Pro-B Natriuret Pep Total Protein 4.4 L Albumin 1.7 L Triglycerides Arterial Blood Glucose Arterial Blood Ionized Calcium Urine WBC (Auto) U Epithel Cells (Auto) Urine Creatinine Random Vancomycin Coronavirus (PCR) SARS-CoV-2 IgG Ab 03/21/20 03/22/20 03/22/20 23:14 00:42 02:57 WBC RBC Hgb 9.3 L Hct 30.2 L MCH MCHC RDW Lymph % (Auto) Ashley % (Auto) Lymph # (Auto) Ashley # (Auto) Seg Neutrophils % Seg Neutrophils # APTT D-Dimer Heparin Anti-Xa Level ABG pH POC ABG pCO2 POC ABG pO2 141.4 H ABG pO2 ABG HCO3 ABG Base Excess ABG Hemoglobin 9.4 L ABG Oxyhemoglobin ABG Sodium 132.3 L ABG Potassium 4.6 H ABG Chloride ABG Glucose 217 H Oxyhemoglobin Carboxyhemoglobin Sodium Potassium Chloride Carbon Dioxide BUN Creatinine Glucose POC Glucose 191 H Hemoglobin A1c Lactic Acid Calcium Ferritin Total Bilirubin AST ALT Lactate Dehydrogenase C-Reactive Protein NT-Pro-B Natriuret Pep Total Protein Albumin Triglycerides Arterial Blood Glucose 217 H Arterial Blood Ionized Calcium Urine WBC (Auto) U Epithel Cells (Auto) Urine Creatinine Random Vancomycin Coronavirus (PCR) SARS-CoV-2 IgG Ab 03/22/20 03/22/20 03/22/20 05:13 08:00 08:00 WBC RBC 3.34 L Hgb 8.4 L Hct 26.8 L MCH 25 L MCHC RDW 20.2 H Lymph % (Auto) 7.7 L Ashley % (Auto) Lymph # (Auto) 0.7 L Ashley # (Auto) Seg Neutrophils % 84.0 H Seg Neutrophils # 7.8 H APTT D-Dimer Heparin Anti-Xa Level ABG pH POC ABG pCO2 POC ABG pO2 ABG pO2 ABG HCO3 ABG Base Excess ABG Hemoglobin ABG Oxyhemoglobin ABG Sodium ABG Potassium ABG Chloride ABG Glucose Oxyhemoglobin Carboxyhemoglobin Sodium 134 L Potassium Chloride Carbon Dioxide BUN 64 H Creatinine 2.3 H Glucose 207 H POC Glucose 201 H Hemoglobin A1c Lactic Acid Calcium Ferritin Total Bilirubin AST ALT Lactate Dehydrogenase C-Reactive Protein NT-Pro-B Natriuret Pep Total Protein Albumin Triglycerides Arterial Blood Glucose Arterial Blood Ionized Calcium Urine WBC (Auto) U Epithel Cells (Auto) Urine Creatinine Random Vancomycin Coronavirus (PCR) SARS-CoV-2 IgG Ab 03/22/20 03/22/20 03/22/20 11:17 15:00 16:53 WBC RBC Hgb Hct MCH MCHC RDW Lymph % (Auto) Ashley % (Auto) Lymph # (Auto) Ashley # (Auto) Seg Neutrophils % Seg Neutrophils # APTT D-Dimer Heparin Anti-Xa Level ABG pH POC ABG pCO2 POC ABG pO2 ABG pO2 ABG HCO3 ABG Base Excess ABG Hemoglobin ABG Oxyhemoglobin ABG Sodium ABG Potassium ABG Chloride ABG Glucose Oxyhemoglobin Carboxyhemoglobin Sodium Potassium Chloride Carbon Dioxide BUN Creatinine Glucose POC Glucose 198 H 182 H Hemoglobin A1c Lactic Acid Calcium Ferritin Total Bilirubin AST ALT Lactate Dehydrogenase C-Reactive Protein NT-Pro-B Natriuret Pep Total Protein Albumin Triglycerides Arterial Blood Glucose Arterial Blood Ionized Calcium Urine WBC (Auto) > 182.0 H U Epithel Cells (Auto) 17.0 H Urine Creatinine Random Vancomycin Coronavirus (PCR) SARS-CoV-2 IgG Ab 03/22/20 03/22/20 03/23/20 23:17 23:27 05:30 WBC RBC Hgb Hct MCH MCHC RDW Lymph % (Auto) Ashley % (Auto) Lymph # (Auto) Ashley # (Auto) Seg Neutrophils % Seg Neutrophils # APTT D-Dimer Heparin Anti-Xa Level 0.17 L ABG pH POC ABG pCO2 POC ABG pO2 ABG pO2 ABG HCO3 ABG Base Excess ABG Hemoglobin ABG Oxyhemoglobin ABG Sodium ABG Potassium ABG Chloride ABG Glucose Oxyhemoglobin Carboxyhemoglobin Sodium Potassium Chloride Carbon Dioxide BUN Creatinine Glucose POC Glucose 235 H 283 H Hemoglobin A1c Lactic Acid Calcium Ferritin Total Bilirubin AST ALT Lactate Dehydrogenase C-Reactive Protein NT-Pro-B Natriuret Pep Total Protein Albumin Triglycerides Arterial Blood Glucose Arterial Blood Ionized Calcium Urine WBC (Auto) U Epithel Cells (Auto) Urine Creatinine Random Vancomycin Coronavirus (PCR) SARS-CoV-2 IgG Ab 03/23/20 03/23/20 03/23/20 06:00 09:30 09:30 WBC RBC Hgb 8.8 L Hct 28.4 L MCH MCHC RDW Lymph % (Auto) Ashley % (Auto) Lymph # (Auto) Ashley # (Auto) Seg Neutrophils % Seg Neutrophils # APTT D-Dimer 1509.37 H Heparin Anti-Xa Level ABG pH POC ABG pCO2 POC ABG pO2 ABG pO2 ABG HCO3 ABG Base Excess ABG Hemoglobin ABG Oxyhemoglobin ABG Sodium ABG Potassium ABG Chloride ABG Glucose Oxyhemoglobin Carboxyhemoglobin Sodium Potassium Chloride Carbon Dioxide BUN Creatinine Glucose POC Glucose Hemoglobin A1c Lactic Acid Calcium Ferritin 284.9 H Total Bilirubin AST ALT Lactate Dehydrogenase C-Reactive Protein NT-Pro-B Natriuret Pep Total Protein Albumin Triglycerides Arterial Blood Glucose Arterial Blood Ionized Calcium Urine WBC (Auto) U Epithel Cells (Auto) Urine Creatinine Random Vancomycin Coronavirus (PCR) SARS-CoV-2 IgG Ab 03/23/20 03/23/20 03/23/20 09:30 11:54 12:00 WBC RBC Hgb Hct MCH MCHC RDW Lymph % (Auto) Ashley % (Auto) Lymph # (Auto) Ashley # (Auto) Seg Neutrophils % Seg Neutrophils # APTT D-Dimer Heparin Anti-Xa Level 1.87 H ABG pH POC ABG pCO2 POC ABG pO2 ABG pO2 ABG HCO3 ABG Base Excess ABG Hemoglobin ABG Oxyhemoglobin ABG Sodium ABG Potassium ABG Chloride ABG Glucose Oxyhemoglobin Carboxyhemoglobin Sodium Potassium 5.2 H Chloride 110.1 H Carbon Dioxide BUN 57 H Creatinine 1.4 H Glucose 318 H POC Glucose 287 H Hemoglobin A1c Lactic Acid Calcium Ferritin Total Bilirubin AST ALT Lactate Dehydrogenase 414 H C-Reactive Protein 26.30 H NT-Pro-B Natriuret Pep Total Protein Albumin Triglycerides Arterial Blood Glucose Arterial Blood Ionized Calcium Urine WBC (Auto) U Epithel Cells (Auto) Urine Creatinine Random Vancomycin Coronavirus (PCR) SARS-CoV-2 IgG Ab 03/23/20 03/23/20 03/23/20 17:42 23:27 Unknown WBC RBC Hgb Hct MCH MCHC RDW Lymph % (Auto) Ashley % (Auto) Lymph # (Auto) Ashley # (Auto) Seg Neutrophils % Seg Neutrophils # APTT D-Dimer Heparin Anti-Xa Level ABG pH POC ABG pCO2 POC ABG pO2 81.6 L ABG pO2 ABG HCO3 ABG Base Excess ABG Hemoglobin 10.1 L ABG Oxyhemoglobin ABG Sodium ABG Potassium 5.1 H ABG Chloride 109.0 H ABG Glucose 295 H Oxyhemoglobin Carboxyhemoglobin Sodium Potassium Chloride Carbon Dioxide BUN Creatinine Glucose POC Glucose 281 H 266 H Hemoglobin A1c Lactic Acid Calcium Ferritin Total Bilirubin AST ALT Lactate Dehydrogenase C-Reactive Protein NT-Pro-B Natriuret Pep Total Protein Albumin Triglycerides Arterial Blood Glucose 295 H Arterial Blood Ionized Calcium Urine WBC (Auto) U Epithel Cells (Auto) Urine Creatinine Random Vancomycin Coronavirus (PCR) SARS-CoV-2 IgG Ab 03/24/20 03/24/20 03/24/20 02:08 03:50 05:31 WBC RBC Hgb Hct MCH MCHC RDW Lymph % (Auto) Ashley % (Auto) Lymph # (Auto) Ashley # (Auto) Seg Neutrophils % Seg Neutrophils # APTT D-Dimer Heparin Anti-Xa Level ABG pH 7.452 H POC ABG pCO2 POC ABG pO2 ABG pO2 96.6 H ABG HCO3 26.7 H ABG Base Excess ABG Hemoglobin 9.0 L ABG Oxyhemoglobin ABG Sodium ABG Potassium ABG Chloride ABG Glucose Oxyhemoglobin Carboxyhemoglobin Sodium 156 H D Potassium 5.4 H Chloride 120.4 H Carbon Dioxide BUN 54 H Creatinine Glucose 352 H POC Glucose 307 H Hemoglobin A1c Lactic Acid Calcium Ferritin Total Bilirubin AST ALT Lactate Dehydrogenase C-Reactive Protein NT-Pro-B Natriuret Pep Total Protein Albumin Triglycerides Arterial Blood Glucose Arterial Blood Ionized Calcium Urine WBC (Auto) U Epithel Cells (Auto) Urine Creatinine Random Vancomycin Coronavirus (PCR) SARS-CoV-2 IgG Ab Chest x-ray: image reviewed (none today) Allied health notes reviewed: nursing
--- NOTE | 2020-03-24 13:09 | Progress Note ---
Assessment and Plan # Acute Kidney Injury: multiple reasons for MICHELLE, likely mostly due to tubular injury from cardiac arrest and suspect hypoperfusion injury on 03/19, also with contrast use, COVID-19, and supratherapeutic vancomycin. Remains non-oliguric at this time. Prior baseline creatinine 0.5. Creatinine improved from 2.3->1.4->1.0 - agree with supportive measures for now, maintain euvolemia as able - avoid nephrotoxins - renally dose meds - reviewed neurology note, note poor prognosis and low likelihood of recovery, agree with palliative measures # Hypernatremia: increase free water with tube feeds as able # Acute hypoxemic respiratory failure,sepsis: due to COVID-19 and staph PNA - care per ICU, ID for COVID # status post cardiac arrest on 03/13 and 03/19: appreciate ICU, cardiology input # B/l PE: on heparin drip # HTN: holding antihypertensives, currently on low dose pressor # DM: care per primary # Obesity hypoventilation syndrome, pulmonary hypertension Subjective Date of service: 03/24/20 Principal diagnosis: Cardiac arrest; Ac. hypoxemic resp failure; COVID 19 infxn; Pulm HTN; OHS Interval history: No acute changes noted. Remains intubated, Fio2 50% Objective - Exam Narrative Exam: Patient is seen through ICU window, not directly examined due to COVID-19 p andemic conservation strategy. Noted to be PRBC 60% FiO2, on heparin gtt, Levo. - Vital Signs Vital signs: Vital Signs - 12hr 03/24/20 03/24/20 03/24/20 01:15 01:30 01:45 Temperature Pulse Rate 94 H 95 H 96 H Pulse Rate [ From Monitor] Respiratory 25 H 25 H 25 H Rate Blood Pressure 147/78 150/80 147/83 O2 Sat by Pulse 98 98 98 Oximetry 03/24/20 03/24/20 03/24/20 02:00 02:15 02:30 Temperature Pulse Rate 96 H 95 H 95 H Pulse Rate [ From Monitor] Respiratory 25 H 25 H 25 H Rate Blood Pressure 148/78 141/76 142/75 O2 Sat by Pulse 98 97 98 Oximetry 03/24/20 03/24/20 03/24/20 02:45 03:00 03:15 Temperature Pulse Rate 93 H 92 H 92 H Pulse Rate [ From Monitor] Respiratory 25 H 25 H 25 H Rate Blood Pressure 145/79 148/78 148/81 O2 Sat by Pulse 98 98 98 Oximetry 03/24/20 03/24/20 03/24/20 03:30 03:42 03:45 Temperature Pulse Rate 91 H 90 89 Pulse Rate [ From Monitor] Respiratory 25 H 25 H Rate Blood Pressure 148/81 150/80 150/80 O2 Sat by Pulse 98 98 98 Oximetry 03/24/20 03/24/20 03/24/20 04:00 04:15 04:30 Temperature 100.4 F H Pulse Rate 88 90 95 H Pulse Rate [ 91 H From Monitor] Respiratory 25 H 25 H 25 H Rate Blood Pressure 144/75 135/67 138/69 O2 Sat by Pulse 98 98 98 Oximetry 03/24/20 03/24/20 03/24/20 04:45 05:01 05:15 Temperature Pulse Rate 95 H 91 H 89 Pulse Rate [ From Monitor] Respiratory 26 H 25 H 25 H Rate Blood Pressure 146/71 142/71 139/69 O2 Sat by Pulse 99 98 99 Oximetry 03/24/20 03/24/20 03/24/20 05:30 05:45 06:01 Temperature Pulse Rate 88 87 87 Pulse Rate [ From Monitor] Respiratory 25 H 26 H 25 H Rate Blood Pressure 141/72 140/72 141/72 O2 Sat by Pulse 98 98 98 Oximetry 03/24/20 03/24/20 03/24/20 06:15 06:31 06:45 Temperature Pulse Rate 87 87 87 Pulse Rate [ From Monitor] Respiratory 25 H 25 H 25 H Rate Blood Pressure 140/71 139/73 145/76 O2 Sat by Pulse 98 98 98 Oximetry 03/24/20 03/24/20 03/24/20 07:00 07:15 07:30 Temperature Pulse Rate 88 89 88 Pulse Rate [ From Monitor] Respiratory 25 H 25 H 26 H Rate Blood Pressure 148/76 153/81 152/81 O2 Sat by Pulse 98 98 97 Oximetry 03/24/20 03/24/20 03/24/20 07:45 08:00 08:01 Temperature 99.2 F Pulse Rate 90 90 90 Pulse Rate [ 90 From Monitor] Respiratory 25 H 25 H 25 H Rate Blood Pressure 155/81 159/84 O2 Sat by Pulse 98 98 98 Oximetry 03/24/20 03/24/20 03/24/20 08:12 08:15 08:30 Temperature Pulse Rate 89 90 90 Pulse Rate [ From Monitor] Respiratory 25 H 8 L Rate Blood Pressure 155/85 155/85 155/85 O2 Sat by Pulse 98 98 97 Oximetry 03/24/20 03/24/20 03/24/20 08:45 08:53 09:01 Temperature 99.2 F Pulse Rate 91 H 90 Pulse Rate [ From Monitor] Respiratory 23 17 Rate Blood Pressure 153/81 152/82 O2 Sat by Pulse 96 97 Oximetry 03/24/20 03/24/20 03/24/20 09:15 09:31 09:45 Temperature Pulse Rate 88 90 89 Pulse Rate [ From Monitor] Respiratory 24 11 L 25 H Rate Blood Pressure 151/83 145/77 141/73 O2 Sat by Pulse 98 97 Oximetry 03/24/20 03/24/20 03/24/20 10:00 10:15 10:30 Temperature Pulse Rate 89 87 88 Pulse Rate [ From Monitor] Respiratory 25 H 25 H 25 H Rate Blood Pressure 147/79 146/76 151/82 O2 Sat by Pulse 97 97 Oximetry 03/24/20 03/24/20 03/24/20 10:45 11:01 11:15 Temperature Pulse Rate 87 88 89 Pulse Rate [ From Monitor] Respiratory 25 H 25 H 26 H Rate Blood Pressure 149/77 128/63 137/67 O2 Sat by Pulse 96 97 97 Oximetry 03/24/20 03/24/20 03/24/20 11:29 11:30 11:45 Temperature Pulse Rate 88 87 87 Pulse Rate [ From Monitor] Respiratory 25 H 24 Rate Blood Pressure 146/74 140/75 128/63 O2 Sat by Pulse 98 98 98 Oximetry 03/24/20 03/24/20 03/24/20 12:00 12:15 12:30 Temperature 98.8 F Pulse Rate 87 90 85 Pulse Rate [ 87 From Monitor] Respiratory 25 H 25 H 24 Rate Blood Pressure 148/77 145/81 144/80 O2 Sat by Pulse 98 98 98 Oximetry 03/24/20 03/24/20 12:45 13:01 Temperature Pulse Rate 85 85 Pulse Rate [ From Monitor] Respiratory 25 H 25 H Rate Blood Pressure 145/80 140/74 O2 Sat by Pulse 98 98 Oximetry - Lab 03/23/20 06:00 03/24/20 02:08 Most recent lab results ABG pH 7.452 pH Units (7.350-7.450) H 03/24/20 03:50 ABG pCO2 39.2 mm Hg 03/24/20 03:50 ABG pO2 96.6 mm Hg (80.0-90.0) H 03/24/20 03:50 ABG HCO3 26.7 mmol/L (20.0-26.0) H 03/24/20 03:50 ABG O2 Saturation 97.6 % (95.0-99.0) 03/24/20 03:50 Calcium 10.2 mg/dL (8.4-10.2) 03/24/20 02:08 Urine Creatinine 137.9 mg/dL (0.1-20.0) H 03/20/20 13:44 Urine Sodium 27 mmol/L 03/20/20 13:44 Medications & Allergies - Medications Allergies/Adverse Reactions: Allergies lorazepam [From Ativan] Adverse Reaction (Verified 03/09/20 07:27) Unknown naloxone [From Narcan] Adverse Reaction (Verified 03/09/20 07:28) Unknown Home Medications: Home Medications Medication Instructions Recorded Confirmed Last Taken Type Citalopram Hydrobromide 20 mg PO QHS 03/09/20 03/09/20 Unknown History [Citalopram HBr] Divalproex ER [DepaKOTE ER] 1,000 mg PO QHS 03/09/20 03/09/20 Unknown History Furosemide [Lasix] 20 mg PO QDAY 03/09/20 03/09/20 Unknown History Losartan [Cozaar] 100 mg PO QDAY 03/09/20 03/09/20 Unknown History NIFEdipine [Nifedipine ER] 60 mg PO QDAY 03/09/20 03/09/20 Unknown History carvediloL [Coreg] 6.25 mg PO BID 03/09/20 03/09/20 Unknown History hydrOXYzine HCL [Atarax] 10 mg PO QHS 03/09/20 03/09/20 Unknown History risperiDONE [RisperDAL] 0.5 mg PO BID 03/09/20 03/09/20 Unknown History Active Medications: Generic Name Dose Route Start Last Admin Trade Name Freq PRN Reason Stop Dose Admin Acetaminophen 650 mg 03/13/20 16:54 03/14/20 09:36 Tylenol FEEDTUBE 650 mg Q6H PRN Administration Pain, Mild (1-3) Lipase/Protease/Amylase 1 each 03/14/20 08:[address] 10,500 Unit FEEDTUBE PRN PRN For Clogged Feeding Tube Dexamethasone 4 mg 03/22/20 15:00 03/24/20 05:38 Decadron IV 4 mg Q8HR KIM Administration Fentanyl 50 mcg 03/13/20 09:36 03/17/20 20:23 Sublimaze IV 50 mcg Q10MIN PRN Administration ANALGESIA Glycopyrrolate 1 mg 03/19/20 20:00 03/24/20 08:28 Glycopyrrolate PO 1 mg TID KIM Administration Hydralazine HCl 10 mg 03/09/20 10:49 Apresoline IV Q4HR PRN Hypertension Hydrophilic Ointment 1 applic 03/13/20 07:00 Vaseline Lip Therapy TP Q2HR PRN Dry Lips Heparin Sodium/Sodium Chloride 25,000 unit in 500 mls @ 30 mls/hr 03/19/20 14:00 03/24/20 10:00 Heparin/ 0.45% Nacl-25,000 Unit/500 Ml IV 1,900 units/hr TITR KIM 38 mls/hr Titration Protocol 1,500 UNITS/HR Norepinephrine 4 mg in 250 mls @ 7.5 mls/hr 03/19/20 14:00 03/23/20 14:12 Levophed Drip 4 Mg/Ns 250 Ml IV 0 mcg/min TITR KIM 0 mls/hr Titration Protocol 2 MCG/MIN Vasopressin 20 unit/ Sodium 101 mls @ 9.09 mls/hr 03/21/20 23:45 03/22/20 01:36 Chloride IV 0 units/min TITR KIM 0 mls/hr Titration Protocol 0.03 UNITS/MIN Cefepime HCl 2 gm in 100 mls @ 200 mls/hr 03/23/20 10:00 03/24/20 10:10 Cefepime/Ns 2 Gm/100 Ml IV 03/27/20 09:59 200 mls/hr Q12HR KIM Administration Protocol Insulin Glargine 35 units 03/21/20 22:00 03/23/20 22:12 Lantus SUB-Q 35 units QHS KIM Administration Insulin Human Lispro 0 unit 03/13/20 18:00 03/24/20 05:35 Humalog SUB-Q 8 unit Q6H KIM Administration Protocol Lansoprazole 30 mg 03/15/20 10:00 03/24/20 10:11 Prevacid Solutab FEEDTUBE 30 mg QDAY KIM Administration Multi-Ingred Cream/Lotion/Oil/Oint 1 applic 03/13/20 07:00 Artificial Tears Ophth Oint OU Q4HR PRN Dry Eye(s) Polyethylene Glycol 17 gm 03/15/20 13:00 03/24/20 10:10 Miralax 3350 PO 17 gm QDAY KIM Administration Scopolamine 1 each 03/19/20 16:00 03/22/20 10:01 Transderm-Scop TD 1 each Q3D KIM Administration Senna/Docusate Sodium 2 tab 03/15/20 13:00 03/24/20 10:11 Senokot S PO 2 tab BID KIM Administration Simple Syrup 15 ml 03/14/20 08:36 Simple Syrup FEEDTUBE PRN PRN Hypoglycemia Simple Syrup 30 ml 03/14/20 08:36 Simple Syrup FEEDTUBE PRN PRN Hypoglycemia Sodium Bicarbonate 325 mg 03/14/20 08:36 Sodium Bicarbonate FEEDTUBE PRN PRN For Clogged Feeding Tube
[2020-03-24] MEDS ORDERED: SODIUM POLYSTYRENE 15 GM/60 ML ORAL LIQD PO ONE (14:00)
--- NOTE | 2020-03-24 15:52 | Nuclear Medicine Report ---
NM BRAIN FLOW HISTORY: Anoxic encephalopathy; cardiac [id number]-old female COMPARISON: CT head - 03/23/2020 TECHNIQUE: Following administration of radiopharmaceutical, followed by a saline flush, immediate dyn amic images of the head and neck were acquired in the anterior projection for one minute. Subsequentl y, static images of the head were obtained. RADIOPHARMACEUTICAL: 20 mCi of [id number] FINDINGS: DYNAMIC IMAGING: Some component of carotid flow is suspected. No signs of significant intracranial fl ow appreciated. DELAYED IMAGING: No intracranial acitivity is identified. Increased activity in the nose is indicati ve of increased collateral flow through the external carotids. Additional Findings: None. IMPRESSION: 1. No signs of significant intracranial flow appreciated. Signer Name: Wilian Pierson MD, III Signed: 03/24/2020 3:48 PM Workstation Name: [email or web address]
--- NOTE | 2020-03-24 19:25 | Progress Note ---
Assessment and Plan --Severe anoxic brain injury likely developed following 2nd cardiac arrest CT head 03/22 with brain herniation, neurology following repeat CT 03/23 showed progression of diffuse brain edema --Acute respiratory failure due to COVID-19 and staph MRSA PNA patient now intubated since 03/13 following a cardiac arrest self extubated on 03/19 then reintubated Critical care following, continue scheduled breathing treatment, IV steroid Wean off from vent as tolerated --Status post cardiac arrest x2 on 03/13 and 03/19 Patient currently intubated, 2D echo showed preserved EF with right ventricular pressure 68 --B/l PE, initiated on heparin drip --Novel Coronavirus infection Coronavirus protocol: Infectious disease service consulted, contact precautions, isolation precaution, steroid therapy, follow inflammatory markers Diagnosed over 2 weeks ago, as such not a candidate for remdesivir. Given that her ferritin is normal, less likely to be in cytokine storm. -Patient also positive for COVID-19 antibody -no scope for convalescent plasma therapy -- Pneumonia with MRSA and COVID Pneumonia protocol: Supplemental oxygen, IV antibiotic therapy, pulse oximetry, blood culture. -cefepime 2 g every 8 hours given elevated white count, lactic acid and procalcitonin -Continue vancomycin as sputum culture growing MRSA for 7 days -Patient was diagnosed with COVID-19 2 weeks ago- not a candidate for remdesivir --Sepsis with shock, due to COVID-19 and MRSA pneumonia and ?UTI Likely present on admission, continue antibiotics per ID, follow inflammatory markers -- Hypertension Monitor blood pressure every shift, continue medical management -- Diabetes type 2 Tube feeding diet, sliding scale insulin therapy, Accu-Chek, hypoglycemia protocol -- Obesity hypoventilation syndrome BMI 78.7, monitor weight pulse oximetry, nebulizer therapy, supplemental oxygen, patient now intubated outpatient pulmonary follow-up for sleep study when clinically stable, need recommendation on balanced diet, increase physical activity at discharge -- Pulmonary hypertension cont Supportive care, --hyperkalemia, follow BMP, give iv sodium bicarbonate as needed, monitor for bradycardia --hypernatremia, monitor, gentle hydration if Na level >155 considering severe cerebral edema -- DVT prophylaxis SCD to bilateral lower extremities while in bed, prophylactic anticoagulatio The high probability of a clinically significant, sudden or life threatening deterioration of the [pulmonary, cardiac, renal, neuro] system(s) required my full and direct attention, intervention and personal management. The aggregate critical care time was [90] minutes. This time is in addition to time spent performing reported procedures but includes the following: [x] Data Review and interpretation [x] Patient assessment and monitoring of vital signs [x] Documentation [x] Medication orders and management Brief history: 29-year-old female past medical history morbid obesity, obesity hypoventilation syndrome, diabetes admitted with shortness of breath. Patient is positive for COVID-19 diagnosed 2 weeks ago before this admission, patient required intubated following a cardiac arrest on 03/13/20. ID following and critical care following. Sputum culture is positive for staph aureus, getting abx. on 03/19 she self extubated herself and went into another cardiac arrest - immediately reintubated and ACLS started with return of pulse. 03/16: resumed care. cont iv abx, follow pending sputum Cx. wean off vent as tolerated 03/17: Sputum culture positive for MRSA, stop cefepime continue on vancomycin for 7 days per ID recommendation. Wean off vent as tolerated, continue tube feeding 03/19: Patient self extubated herself and then developed cardiac arrest. ACLS initiated and ROSC obtained. Discussed with RN at the bedside. CTA chest showed b/l PE, heparin drip initiated. Called patient's mother and updated 03/20 at present patient remains intubated was reintubated. CT scan chest showed small PE remains on heparin drip. 03/21 lew intubated no new changes over p.m. Vancomycin for 10 days per ID. Unable to wean at this time. 03/22: patient with dilated pupil w/o cough and gag response. CT head showed tentorium herniation. Neurology consulted, discusaed with CC and he will update the family. 03/23: ordered for repeat CT head today. EEG done today will f/u result. Called mother and updated her with patient's clinical status 03/24: had a discussion with patient's mother with neurology and family agreed f or hospice as patient is most likely brain /severe anoxic brain injury with herniation. Subjective Date of service: 03/24/20 Principal diagnosis: Cardiac arrest; Ac. hypoxemic resp failure; COVID 19 infxn; Pulm HTN; OHS Interval history: Patient seen and examined Patient currently intubated with mechanical ventilation Patient also off sedation and off restrain Discussed with RN at the bedside Called mother today to give update Objective - Exam Narrative Exam: GENERAL: well-developed morbidly obese -[place] female lying on bed intubated and unresponsive. HEENT: Normocephalic. Atraumatic. No conjunctival congestion or icterus. Patient has dilated fixed stable. NECK: Supple. Trachea midline. ET tube in place CHEST/LUNGS: Diminished breath sound auscultated bilaterally, mechanically ventilated HEART/CARDIOVASCULAR: Tachycardic. S1 and S2 positive. ABDOMEN: Abdomen is soft, nontender. Patient has normal bowel sounds. SKIN: There is no rash. Warm and dry. NEURO: Unresponsive MUSCULOSKELETAL: No joint effusion or tenderness. EXTRIMITY: No edema, no cyanosis or clubbing. PSYCH: Unresponsive - Constitutional Vitals: Vital Signs - 12hr 03/24/20 03/24/20 03/24/20 07:30 07:45 08:00 Temperature 99.2 F Pulse Rate 88 90 90 Pulse Rate [ 90 From Monitor] Respiratory 26 H 25 H 25 H Rate Blood Pressure 152/81 155/81 O2 Sat by Pulse 97 98 98 Oximetry 03/24/20 03/24/20 03/24/20 08:01 08:12 08:15 Temperature Pulse Rate 90 89 90 Pulse Rate [ From Monitor] Respiratory 25 H 25 H Rate Blood Pressure 159/84 155/85 155/85 O2 Sat by Pulse 98 98 98 Oximetry 03/24/20 03/24/20 03/24/20 08:30 08:45 08:53 Temperature 99.2 F Pulse Rate 90 91 H Pulse Rate [ From Monitor] Respiratory 8 L 23 Rate Blood Pressure 155/85 153/81 O2 Sat by Pulse 97 96 Oximetry 03/24/20 03/24/20 03/24/20 09:01 09:15 09:31 Temperature Pulse Rate 90 88 90 Pulse Rate [ From Monitor] Respiratory 17 24 11 L Rate Blood Pressure 152/82 151/83 145/77 O2 Sat by Pulse 97 98 97 Oximetry 03/24/20 03/24/20 03/24/20 09:45 10:00 10:15 Temperature Pulse Rate 89 89 87 Pulse Rate [ From Monitor] Respiratory 25 H 25 H 25 H Rate Blood Pressure 141/73 147/79 146/76 O2 Sat by Pulse 97 Oximetry 03/24/20 03/24/20 03/24/20 10:30 10:45 11:01 Temperature Pulse Rate 88 87 88 Pulse Rate [ From Monitor] Respiratory 25 H 25 H 25 H Rate Blood Pressure 151/82 149/77 128/63 O2 Sat by Pulse 97 96 97 Oximetry 03/24/20 03/24/20 03/24/20 11:15 11:29 11:30 Temperature Pulse Rate 89 88 87 Pulse Rate [ From Monitor] Respiratory 26 H 25 H Rate Blood Pressure 137/67 146/74 140/75 O2 Sat by Pulse 97 98 98 Oximetry 03/24/20 03/24/20 03/24/20 11:45 12:00 12:15 Temperature 98.8 F Pulse Rate 87 85 90 Pulse Rate [ 87 From Monitor] Respiratory 24 25 H 25 H Rate Blood Pressure 128/63 148/77 145/81 O2 Sat by Pulse 98 98 98 Oximetry 03/24/20 03/24/20 03/24/20 12:30 12:45 13:01 Temperature Pulse Rate 85 85 85 Pulse Rate [ From Monitor] Respiratory 24 25 H 25 H Rate Blood Pressure 144/80 145/80 140/74 O2 Sat by Pulse 98 98 98 Oximetry 03/24/20 03/24/20 03/24/20 13:15 13:31 13:45 Temperature Pulse Rate 84 85 84 Pulse Rate [ From Monitor] Respiratory 25 H 25 H 25 H Rate Blood Pressure 137/75 136/73 138/75 O2 Sat by Pulse 97 97 97 Oximetry 03/24/20 03/24/20 03/24/20 14:00 14:15 14:30 Temperature Pulse Rate 83 83 92 H Pulse Rate [ From Monitor] Respiratory 24 25 H 25 H Rate Blood Pressure 135/74 138/72 129/63 O2 Sat by Pulse 97 97 95 Oximetry 03/24/20 03/24/20 03/24/20 15:19 15:30 15:45 Temperature Pulse Rate 91 H 87 85 Pulse Rate [ From Monitor] Respiratory 25 H 25 H 25 H Rate Blood Pressure 137/73 134/79 137/79 O2 Sat by Pulse 99 98 99 Oximetry 03/24/20 03/24/20 03/24/20 16:00 16:15 16:31 Temperature 99.6 F Pulse Rate 84 83 110 H Pulse Rate [ 84 From Monitor] Respiratory 25 H 25 H 14 Rate Blood Pressure 151/85 145/89 205/134 O2 Sat by Pulse 99 99 99 Oximetry 03/24/20 03/24/20 03/24/20 16:45 17:01 17:15 Temperature Pulse Rate 110 H 108 H Pulse Rate [ From Monitor] Respiratory 25 H 25 H 25 H Rate Blood Pressure 203/123 145/89 176/107 O2 Sat by Pulse 99 98 Oximetry 03/24/20 03/24/20 03/24/20 17:30 17:45 18:00 Temperature Pulse Rate 105 H 106 H 111 H Pulse Rate [ From Monitor] Respiratory 25 H 25 H 25 H Rate Blood Pressure 165/102 153/90 153/93 O2 Sat by Pulse 97 97 98 Oximetry 03/24/20 03/24/20 03/24/20 18:15 18:30 18:45 Temperature Pulse Rate 109 H 104 H 100 H Pulse Rate [ From Monitor] Respiratory 25 H 26 H 25 H Rate Blood Pressure 155/86 149/83 145/85 O2 Sat by Pulse 98 98 99 Oximetry 03/24/20 19:00 Temperature Pulse Rate 103 H Pulse Rate [ From Monitor] Respiratory 25 H Rate Blood Pressure 145/78 O2 Sat by Pulse 99 Oximetry - Labs CBC & Chem 7: 03/25/20 05:15 03/25/20 05:15 Labs: Abnormal lab results 03/23/20 03/24/20 03/24/20 Range/Units 23:27 02:08 03:50 Heparin Anti-Xa Level (0.3-0.7) U.I./ml ABG pH 7.452 H (7.350-7.450) pH Units ABG pO2 96.6 H (80.0-90.0) mm Hg ABG HCO3 26.7 H (20.0-26.0) mmol/L ABG Hemoglobin 9.0 L (12.0-16.0) gm/dl Sodium 156 H D (137-145) mmol/L Potassium 5.4 H (3.6-5.0) mmol/L Chloride 120.4 H (98-107) mmol/L BUN 54 H (7-17) mg/dL Glucose 352 H (65-100) mg/dL POC Glucose 266 H (70-105) mg/dL 03/24/20 03/24/20 03/24/20 Range/Units 05:31 12:35 16:00 Heparin Anti-Xa Level 0.18 L (0.3-0.7) U.I./ml ABG pH (7.350-7.450) pH Units ABG pO2 (80.0-90.0) mm Hg ABG HCO3 (20.0-26.0) mmol/L ABG Hemoglobin (12.0-16.0) gm/dl Sodium (137-145) mmol/L Potassium (3.6-5.0) mmol/L Chloride (98-107) mmol/L BUN (7-17) mg/dL Glucose (65-100) mg/dL POC Glucose 307 H 303 H (70-105) mg/dL 03/24/20 Range/Units 18:30 Heparin Anti-Xa Level (0.3-0.7) U.I./ml ABG pH (7.350-7.450) pH Units ABG pO2 (80.0-90.0) mm Hg ABG HCO3 (20.0-26.0) mmol/L ABG Hemoglobin (12.0-16.0) gm/dl Sodium (137-145) mmol/L Potassium (3.6-5.0) mmol/L Chloride (98-107) mmol/L BUN (7-17) mg/dL Glucose (65-100) mg/dL POC Glucose 328 H (70-105) mg/dL HEART Score - HEART Score Troponin: Troponin T 0.017 ng/mL (0.00-0.029) 03/14/20 09:17
[2020-03-24] MEDS ORDERED: INSULIN GLARGINE 100 UNITS/ML SUB-Q SCH (22:00)
[2020-03-24] MEDS: INSULIN GLARGINE 100 UNITS/ML SUB-Q SCH (22:12)
[2020-03-25] MEDS: INSULIN LISPRO 100 UNIT/ML VIAL 3 mL SUB-Q SCH ×4 (00:24→18:45)
[2020-03-25] MEDS: dexAMETHasone 4 MG/ML VIAL IV SCH ×3 (06:37→21:26)
[2020-03-25 06:41] LABS: Basophils % (Auto) 0.4 % (0.0-1.8); Lymphocytes % (Auto) 8.7 % (13.4-35.0); Mean Corpuscular HGB Conc 30 % (30-34); Mean Corpuscular Volume 82 fl (79-97); Monocytes % (Auto) 8.3 % (0.0-7.3); Platelet Count 310 K/mm3 (140-440)
[2020-03-25 06:42] LABS: Hematocrit 28.7 % (30.3-42.9); Hemoglobin 8.5 gm/dl (10.1-14.3); Red Cell Distribution Width 20.9 % (13.2-15.2)
[2020-03-25 06:58] LABS: ABG PH 7.403 pH Units (7.350-7.450)
[2020-03-25 06:59] LABS: ABG Base Excess 0.8 mmol/L (-2.0-3.0); ABG HCO3 25.7 mmol/L (20.0-26.0); ABG Oxygen Saturation 96.5 % (95.0-99.0); ABG PCO2 42.2 mm Hg; ABG PO2 90.2 mm Hg (80.0-90.0)
[2020-03-25 07:09] LABS: Calcium 10.2 mg/dL (8.4-10.2)
[2020-03-25] MEDS: GLYCOPYRROLATE 2 MG TAB PO SCH ×3 (08:38→21:25)
[2020-03-25] MEDS: CEFEPIME/NS 2 GM/100 ML 2 GM/100 ML BAG IV SCH ×2 (09:20→21:24)
[2020-03-25] MEDS: SCOPOLAMINE TRANSDERMAL PATCH 72 HR TD SCH (09:20)
[2020-03-25] MEDS: LANSOPRAZOLE 30 MG SOLUTAB FEEDTUBE SCH (09:21)
[2020-03-25] MEDS: POLYETHYLENE GLYCOL 3350 17 GM POWDER PO SCH (09:21)
[2020-03-25] MEDS: SENNOSIDES/DOCUSATE SODIUM 8.6/50 MG TAB PO SCH ×2 (09:21→21:25)
[2020-03-25] MEDS: HEPARIN/ 0.45% NACL DRIP 25,000 UNIT/500 ML BAG IV SCH ×2 (10:20→22:15)
[2020-03-25] MEDS: DEXTROSE 5% IN WATER 1,000 ML IV SCH (10:23)
--- NOTE | 2020-03-25 15:22 | Event Note ---
Date: 03/25/20 [place] Brain flow scan reviewed "No signs of significant intra-cranial blood flow" reported Clinical exam consistent with brain also and have asked charge nurse to contact neurology emergently for further evaluation and documentation
--- NOTE | 2020-03-25 15:25 | Event Note ---
Date: 04/01/20 Noted cerebral blood flow study results Patient has no sign of significant cerebral blood flow Clinically patient is unresponsive without any cough and gag reflex fixed dilated pupil Patient is clinically brain due to severe anoxic brain injury from recent cardiac arrest Patient's mother updated with the cerebral blood flow result Patient mother was informed with that finding and informed that patient will be made DNR Patient mother agreed with DNR and planning to visit the patient in hour.
--- NOTE | 2020-03-25 16:27 | Progress Note ---
Assessment and Plan Cultures: Blood culture 03/09/2020 no growth Urine culture 03/09/2020 Tracheal aspirate culture 03/13/2020 MRSA Blood culture 03/23/2020 no growth today Trachioal aspirate 03/23/2020 Staph A/P: 29-year-old female past medical history morbid obesity, obesity hypoventilation syndrome, diabetes admitted with shortness of breath #Status post cardiac arrest - x2 on 03/13 and 03/19 #Shock: Multifactorial, likely septic source ? Pneumonia ? UTI. Remains with fever. ?central fever ?persistent pneumonia. #Critical COVID-19 pneumonia +/- MRSA pneumonia: COVID-19 diagnosed over 2 weeks before admission, as such not a candidate for remdesivir. Markers mildly elevated. Procalcitonin slightly elevated at 0.3. Tract aspirate grew MRSA. Intubated 03/13/2020 after cardiac arrest, self extubated 03/19/2020, then reintubated. Completed vancomycin to complete 10 days on 03/21/2020. #Acute hypoxemic respiratory failure: Likely secondary to COVID-19 infection versus CHF versus bacterial pneumonia. Remains intubated FiO2 60%, PEEP 14. #Diabetes: tight glycemic control for best outcomes. #Morbid obesity: Associated with worse outcomes, recommend diet modifications #CHF: acute volume overload #PE: non-occlusive. #Acute encephalopathy: Patient unresponsive fixed pupils, repeat CT head with marked hypoattenuation in the cerebral hemispheres bilaterally, ascending and descending tentorial herniation. Neurology on board. 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 Made DNR #MICHELLE: Improving #CAUTI Recs: -Continue cefepime 2 g IV every 12 hours, renally adjusted given UTI - D4 of 5 -Overall very poor prognosis, patient unresponsive with brain herniation, made DNR Miesha Ramirez MD [facility] ([facility]) Office [phone] Subjective Date of service: 03/25/20 Principal diagnosis: Cardiac arrest; Ac. hypoxemic resp failure; COVID 19 infxn; Pulm HTN; OHS Interval history: Remains intubated FiO2 noted low-grade fever. On Heparin drip Objective - Exam Narrative Exam: Physical Exam: reviewed ED and hospitalist notes, limited due to conservation of PPE and decrease risk of transmission. General appearance: limited due to conservation of PPE Eyes: limited due to conservation of PPE HENT: Atraumatic; limited due to conservation of PPE Lungs: limited due to conservation of PPE CV: limited due to conservation of PPE Abdomen: limited due to conservation of PPE Extremities: limited due to conservation of PPE Skin: limited due to conservation of PPE Psych: limited due to conservation of PPE Neuro: limited due to conservation of PPE - Constitutional Vitals: Vital Signs Temp Pulse Resp BP Pulse Ox 99.0 F 137 H 24 145/60 73 L 03/25/20 12:00 03/25/20 15:30 03/25/20 15:30 03/25/20 15:30 03/25/20 15:30 Temperature -Last 24 Hours Temperature 99.0 F Temperature 99.5 F Temperature 100.2 F Temperature 100.0 F Temperature 99.8 F - Labs CBC & Chem 7: 03/25/20 05:15 03/25/20 05:15 Labs: Abnormal lab results 03/24/20 03/24/20 03/24/20 Range/Units 16:00 18:30 23:36 WBC (4.5-11.0) K/mm3 RBC (3.65-5.03) M/mm3 Hgb (10.1-14.3) gm/dl Hct (30.3-42.9) % MCH (28-32) pg RDW (13.2-15.2) % Lymph % (Auto) (13.4-35.0) % [place] % (Auto) (0.0-7.3) % Lymph # (Auto) (1.2-5.4) K/mm3 [place] # (Auto) (0.0-0.8) K/mm3 Seg Neutrophils % (40.0-70.0) % Seg Neutrophils # (1.8-7.7) K/mm3 Heparin Anti-Xa Level 0.18 L (0.3-0.7) U.I./ml POC ABG pCO2 (32.0-48.0) mmHg POC ABG pO2 (83-108) mmHg ABG pO2 (80.0-90.0) mm Hg ABG Hemoglobin (12.0-17.5) ABG Oxyhemoglobin (94-98) ABG Sodium (136.0-145.0) mmol/L ABG Potassium (3.40-4.50) mmol/L ABG Chloride (98-107) mmol/L ABG Glucose (65-95) mg/dL Sodium (137-145) mmol/L Chloride (98-107) mmol/L BUN (7-17) mg/dL Creatinine (0.6-1.2) mg/dL Glucose (65-100) mg/dL POC Glucose 328 H 372 H (70-105) mg/dL Arterial Blood Glucose (65-95) mg/dL Arterial Blood Ionized Calcium (4.6-5.3) mg/dL 03/25/20 03/25/20 03/25/20 Range/Units 03:35 05:15 05:15 WBC 11.8 H (4.5-11.0) K/mm3 RBC 3.50 L (3.65-5.03) M/mm3 Hgb 8.5 L (10.1-14.3) gm/dl Hct 28.7 L (30.3-42.9) % MCH 24 L (28-32) pg RDW 20.9 H (13.2-15.2) % Lymph % (Auto) 8.7 L (13.4-35.0) % [place] % (Auto) 8.3 H (0.0-7.3) % Lymph # (Auto) 1.0 L (1.2-5.4) K/mm3 [place] # (Auto) 1.0 H (0.0-0.8) K/mm3 Seg Neutrophils % 82.6 H (40.0-70.0) % Seg Neutrophils # 9.7 H (1.8-7.7) K/mm3 Heparin Anti-Xa Level (0.3-0.7) U.I./ml POC ABG pCO2 (32.0-48.0) mmHg POC ABG pO2 (83-108) mmHg ABG pO2 90.2 H (80.0-90.0) mm Hg ABG Hemoglobin (12.0-17.5) ABG Oxyhemoglobin (94-98) ABG Sodium (136.0-145.0) mmol/L ABG Potassium (3.40-4.50) mmol/L ABG Chloride (98-107) mmol/L ABG Glucose (65-95) mg/dL Sodium 168 H* D (137-145) mmol/L Chloride 127.9 H (98-107) mmol/L BUN 59 H (7-17) mg/dL Creatinine 1.4 H (0.6-1.2) mg/dL Glucose 389 H (65-100) mg/dL POC Glucose (70-105) mg/dL Arterial Blood Glucose (65-95) mg/dL Arterial Blood Ionized Calcium (4.6-5.3) mg/dL 03/25/20 03/25/20 03/25/20 Range/Units 06:13 11:41 12:03 WBC (4.5-11.0) K/mm3 RBC (3.65-5.03) M/mm3 Hgb (10.1-14.3) gm/dl Hct (30.3-42.9) % MCH (28-32) pg RDW (13.2-15.2) % Lymph % (Auto) (13.4-35.0) % [place] % (Auto) (0.0-7.3) % Lymph # (Auto) (1.2-5.4) K/mm3 [place] # (Auto) (0.0-0.8) K/mm3 Seg Neutrophils % (40.0-70.0) % Seg Neutrophils # (1.8-7.7) K/mm3 Heparin Anti-Xa Level (0.3-0.7) U.I./ml POC ABG pCO2 53.5 H (32.0-48.0) mmHg POC ABG pO2 63.6 L (83-108) mmHg ABG pO2 (80.0-90.0) mm Hg ABG Hemoglobin 10.3 L (12.0-17.5) ABG Oxyhemoglobin 87.8 L (94-98) ABG Sodium 166.5 H (136.0-145.0) mmol/L ABG Potassium 4.8 H (3.40-4.50) mmol/L ABG Chloride 129.0 H (98-107) mmol/L ABG Glucose 380 H (65-95) mg/dL Sodium (137-145) mmol/L Chloride (98-107) mmol/L BUN (7-17) mg/dL Creatinine (0.6-1.2) mg/dL Glucose (65-100) mg/dL POC Glucose 331 H 306 H (70-105) mg/dL Arterial Blood Glucose 380 H (65-95) mg/dL Arterial Blood Ionized Calcium 5.5 H (4.6-5.3) mg/dL
--- NOTE | 2020-03-25 17:17 | Progress Note ---
Subjective Date of service: 03/25/20 Principal diagnosis: Cardiac arrest; Ac. hypoxemic resp failure; COVID 19 infxn; Pulm HTN; OHS Interval history: Follow up for: Cardiopulmonary arrest with ROSC;Acute hypoxemic respiratory failure on MVS ; COVID;Extreme obesity ; Pulmonary HTN; Obesity hypoventilation syndrome Seen and examined. Vitals, labs, medications, chart and imaging reviewed. Objective Vital Signs - 12hr 03/25/20 03/25/20 03/25/20 05:30 05:46 06:00 Temperature Pulse Rate 96 H 96 H 96 H Pulse Rate [ From Monitor] Respiratory 25 H 25 H 25 H Rate Blood Pressure 147/77 147/77 148/80 O2 Sat by Pulse 93 95 94 Oximetry 03/25/20 03/25/20 03/25/20 06:16 06:30 06:46 Temperature Pulse Rate 100 H 116 H 106 H Pulse Rate [ From Monitor] Respiratory 25 H 25 H 24 Rate Blood Pressure 143/77 139/74 170/100 O2 Sat by Pulse 95 97 95 Oximetry 03/25/20 03/25/20 03/25/20 07:00 07:16 07:30 Temperature Pulse Rate 104 H 102 H 102 H Pulse Rate [ From Monitor] Respiratory 25 H 25 H 25 H Rate Blood Pressure 161/93 163/84 156/87 O2 Sat by Pulse 97 97 91 Oximetry 03/25/20 03/25/20 03/25/20 07:46 08:00 08:16 Temperature 99.5 F Pulse Rate 105 H 108 H 108 H Pulse Rate [ 108 H From Monitor] Respiratory 25 H 24 24 Rate Blood Pressure 161/84 163/89 167/81 O2 Sat by Pulse 90 90 90 Oximetry 03/25/20 03/25/20 03/25/20 08:30 08:31 08:46 Temperature Pulse Rate 109 H 110 H 117 H Pulse Rate [ From Monitor] Respiratory 25 H 24 Rate Blood Pressure 163/81 160/79 160/79 O2 Sat by Pulse 90 89 89 Oximetry 03/25/20 03/25/20 03/25/20 09:00 09:16 09:30 Temperature Pulse Rate 115 H 112 H 110 H Pulse Rate [ From Monitor] Respiratory 25 H 25 H 25 H Rate Blood Pressure 163/81 166/89 161/83 O2 Sat by Pulse 88 86 88 Oximetry 03/25/20 03/25/20 03/25/20 09:46 10:00 10:15 Temperature Pulse Rate 110 H 111 H 112 H Pulse Rate [ From Monitor] Respiratory 25 H 25 H Rate Blood Pressure 150/83 162/74 146/82 O2 Sat by Pulse 86 86 89 Oximetry 03/25/20 03/25/20 03/25/20 10:16 10:30 10:46 Temperature Pulse Rate 111 H 114 H 115 H Pulse Rate [ From Monitor] Respiratory 26 H 24 25 H Rate Blood Pressure 146/82 153/81 160/74 O2 Sat by Pulse 89 87 86 Oximetry 03/25/20 03/25/20 03/25/20 11:00 11:16 11:23 Temperature Pulse Rate 116 H 118 H 119 H Pulse Rate [ From Monitor] Respiratory 25 H 23 Rate Blood Pressure 157/68 155/71 159/69 O2 Sat by Pulse 84 83 L 89 Oximetry 03/25/20 03/25/20 03/25/20 11:30 11:46 12:00 Temperature 99.0 F Pulse Rate 120 H 130 H 131 H Pulse Rate [ 131 H From Monitor] Respiratory 16 25 H 15 Rate Blood Pressure 159/69 172/70 194/65 O2 Sat by Pulse 89 85 84 Oximetry 03/25/20 03/25/20 03/25/20 12:16 12:30 12:46 Temperature Pulse Rate 128 H 126 H 124 H Pulse Rate [ From Monitor] Respiratory 25 H 24 25 H Rate Blood Pressure 148/67 195/60 148/58 O2 Sat by Pulse 84 85 83 L Oximetry 03/25/20 03/25/20 03/25/20 13:00 13:16 13:30 Temperature Pulse Rate 123 H 123 H 122 H Pulse Rate [ From Monitor] Respiratory 25 H 25 H 25 H Rate Blood Pressure 148/68 151/60 144/59 O2 Sat by Pulse 82 L 83 L 84 Oximetry 03/25/20 03/25/20 03/25/20 13:46 14:00 14:16 Temperature Pulse Rate 122 H 124 H 124 H Pulse Rate [ From Monitor] Respiratory 25 H 25 H 26 H Rate Blood Pressure 146/72 146/72 168/63 O2 Sat by Pulse 82 L 81 L 82 L Oximetry 03/25/20 03/25/20 03/25/20 14:30 14:46 15:00 Temperature Pulse Rate 123 H 123 H 123 H Pulse Rate [ From Monitor] Respiratory 25 H 25 H 25 H Rate Blood Pressure 150/69 139/65 150/70 O2 Sat by Pulse 81 L 81 L 80 L Oximetry 03/25/20 03/25/20 03/25/20 15:10 15:16 15:30 Temperature Pulse Rate 133 H 137 H Pulse Rate [ From Monitor] Respiratory 26 H 24 Rate Blood Pressure 152/61 145/60 O2 Sat by Pulse 72 L 75 L 73 L Oximetry 03/25/20 03/25/20 03/25/20 15:46 16:00 16:16 Temperature 100.3 F H Pulse Rate 134 H 132 H 125 H Pulse Rate [ From Monitor] Respiratory 25 H 25 H 25 H Rate Blood Pressure 144/57 146/64 153/59 O2 Sat by Pulse 72 L 72 L 74 L Oximetry 03/25/20 03/25/20 03/25/20 16:30 16:46 16:57 Temperature Pulse Rate 120 H 117 H 116 H Pulse Rate [ From Monitor] Respiratory 25 H 25 H Rate Blood Pressure 146/110 109/41 115/45 O2 Sat by Pulse 86 83 L 85 Oximetry 03/25/20 17:00 Temperature Pulse Rate 116 H Pulse Rate [ From Monitor] Respiratory 25 H Rate Blood Pressure 115/45 O2 Sat by Pulse 85 Oximetry Constitutional: no acute distress, other (young obese female with moderately in creased respiratory effort at rest on MVS) Eyes: non-icteric ENT: oropharynx moist, oropharyngeal exudate pre (moderate), other (orally intubated, ETT 24 cm ) Neck: supple, no lymphadenopathy, other (large circumference) Effort: mildly labored Ascultation: Bilateral: diminished breath sounds, rhonchi Percussion: Bilateral: not dull Cardiovascular: regular rate and rhythm, other (S1,S2) Gastrointestinal: normoactive bowel sounds, soft, non-distended (protuberant), other (obese) Integumentary: rash Extremities: no cyanosis, no edema, pulses normal, no ischemia or petechiae Neurologic: pupils equal and round, unable to assess Psychiatric: other (unable to assess) CBC and BMP: 03/25/20 05:15 03/25/20 05:15 ABG, PT/INR, D-dimer: ABG ABG pH 7.320 (7.320-7.450) 03/25/20 11:41 POC ABG pCO2 53.5 mmHg (32.0-48.0) H 03/25/20 11:41 ABG pCO2 42.2 mm Hg 03/25/20 03:35 POC ABG pO2 63.6 mmHg (83-108) L 03/25/20 11:41 ABG pO2 90.2 mm Hg (80.0-90.0) H 03/25/20 03:35 POC ABG HCO3 26.9 03/25/20 11:41 ABG O2 Saturation 96.5 % (95.0-99.0) 03/25/20 03:35 PT/INR, D-dimer PT 13.9 Sec. (12.2-14.9) 03/19/20 14:00 INR 1.08 (0.87-1.13) 03/19/20 14:00 D-Dimer 1509.37 ng/mlDDU (0-234) H 03/23/20 09:30 Abnormal lab findings: Abnormal Labs 03/09/20 03/09/20 03/09/20 08:27 08:27 08:27 WBC 15.8 H RBC 5.43 H Hgb Hct MCH 24 L MCHC RDW 19.3 H Lymph % (Auto) [place] % (Auto) 8.2 H Lymph # (Auto) [place] # (Auto) 1.3 H Seg Neutrophils % 70.4 H Seg Neutrophils # 11.1 H APTT D-Dimer Heparin Anti-Xa Level ABG pH POC ABG pCO2 POC ABG pO2 ABG pO2 ABG HCO3 ABG Base Excess ABG Hemoglobin ABG Oxyhemoglobin ABG Sodium ABG Potassium ABG Chloride ABG Glucose Oxyhemoglobin Carboxyhemoglobin Sodium Potassium Chloride 97.1 L Carbon Dioxide BUN 29 H Creatinine Glucose 178 H POC Glucose Hemoglobin A1c Lactic Acid 3.70 H* Calcium Ferritin Total Bilirubin AST ALT Lactate Dehydrogenase 369 H C-Reactive Protein 3.00 H NT-Pro-B Natriuret Pep Total Protein Albumin Triglycerides Arterial Blood Glucose Arterial Blood Ionized Calcium Urine WBC (Auto) U Epithel Cells (Auto) Urine Creatinine Random Vancomycin Coronavirus (PCR) SARS-CoV-2 IgG Ab 03/09/20 03/09/20 03/09/20 08:27 08:27 08:27 WBC RBC Hgb Hct MCH MCHC RDW Lymph % (Auto) [place] % (Auto) Lymph # (Auto) [place] # (Auto) Seg Neutrophils % Seg Neutrophils # APTT D-Dimer 1042.81 H Heparin Anti-Xa Level ABG pH POC ABG pCO2 POC ABG pO2 ABG pO2 ABG HCO3 ABG Base Excess ABG Hemoglobin ABG Oxyhemoglobin ABG Sodium ABG Potassium ABG Chloride ABG Glucose Oxyhemoglobin Carboxyhemoglobin Sodium Potassium Chloride Carbon Dioxide BUN Creatinine Glucose POC Glucose Hemoglobin A1c 8.0 H Lactic Acid Calcium Ferritin Total Bilirubin AST ALT Lactate Dehydrogenase C-Reactive Protein NT-Pro-B Natriuret Pep 2914 H Total Protein Albumin Triglycerides Arterial Blood Glucose Arterial Blood Ionized Calcium Urine WBC (Auto) U Epithel Cells (Auto) Urine Creatinine Random Vancomycin Coronavirus (PCR) SARS-CoV-2 IgG Ab 03/09/20 03/09/20 03/10/20 08:43 23:04 05:23 WBC RBC Hgb Hct MCH MCHC RDW Lymph % (Auto) [place] % (Auto) Lymph # (Auto) [place] # (Auto) Seg Neutrophils % Seg Neutrophils # APTT D-Dimer Heparin Anti-Xa Level ABG pH POC ABG pCO2 POC ABG pO2 ABG pO2 ABG HCO3 ABG Base Excess ABG Hemoglobin ABG Oxyhemoglobin ABG Sodium ABG Potassium ABG Chloride ABG Glucose Oxyhemoglobin Carboxyhemoglobin Sodium Potassium Chloride Carbon Dioxide BUN Creatinine Glucose POC Glucose 361 H Hemoglobin A1c Lactic Acid 6.80 H* Calcium Ferritin Total Bilirubin AST ALT Lactate Dehydrogenase C-Reactive Protein NT-Pro-B Natriuret Pep Total Protein Albumin Triglycerides Arterial Blood Glucose Arterial Blood Ionized Calcium Urine WBC (Auto) U Epithel Cells (Auto) Urine Creatinine Random Vancomycin Coronavirus (PCR) Positive A SARS-CoV-2 IgG Ab 03/10/20 03/10/20 03/10/20 08:19 10:49 17:11 WBC RBC Hgb Hct MCH MCHC RDW Lymph % (Auto) [place] % (Auto) Lymph # (Auto) [place] # (Auto) Seg Neutrophils % Seg Neutrophils # APTT D-Dimer Heparin Anti-Xa Level ABG pH POC ABG pCO2 POC ABG pO2 ABG pO2 ABG HCO3 ABG Base Excess ABG Hemoglobin ABG Oxyhemoglobin ABG Sodium ABG Potassium ABG Chloride ABG Glucose Oxyhemoglobin Carboxyhemoglobin Sodium Potassium Chloride Carbon Dioxide BUN Creatinine Glucose POC Glucose 371 H 423 H 373 H Hemoglobin A1c Lactic Acid Calcium Ferritin Total Bilirubin AST ALT Lactate Dehydrogenase C-Reactive Protein NT-Pro-B Natriuret Pep Total Protein Albumin Triglycerides Arterial Blood Glucose Arterial Blood Ionized Calcium Urine WBC (Auto) U Epithel Cells (Auto) Urine Creatinine Random Vancomycin Coronavirus (PCR) SARS-CoV-2 IgG Ab 03/11/20 03/11/20 03/11/20 00:29 07:52 13:12 WBC RBC Hgb Hct MCH MCHC RDW Lymph % (Auto) [place] % (Auto) Lymph # (Auto) [place] # (Auto) Seg Neutrophils % Seg Neutrophils # APTT D-Dimer Heparin Anti-Xa Level ABG pH POC ABG pCO2 POC ABG pO2 ABG pO2 ABG HCO3 ABG Base Excess ABG Hemoglobin ABG Oxyhemoglobin ABG Sodium ABG Potassium ABG Chloride ABG Glucose Oxyhemoglobin Carboxyhemoglobin Sodium Potassium Chloride Carbon Dioxide BUN Creatinine Glucose POC Glucose 242 H 233 H 352 H Hemoglobin A1c Lactic Acid Calcium Ferritin Total Bilirubin AST ALT Lactate Dehydrogenase C-Reactive Protein NT-Pro-B Natriuret Pep Total Protein Albumin Triglycerides Arterial Blood Glucose Arterial Blood Ionized Calcium Urine WBC (Auto) U Epithel Cells (Auto) Urine Creatinine Random Vancomycin Coronavirus (PCR) SARS-CoV-2 IgG Ab 03/11/20 03/11/20 03/12/20 15:24 22:54 08:22 WBC RBC Hgb Hct MCH MCHC RDW Lymph % (Auto) [place] % (Auto) Lymph # (Auto) [place] # (Auto) Seg Neutrophils % Seg Neutrophils # APTT D-Dimer Heparin Anti-Xa Level ABG pH POC ABG pCO2 POC ABG pO2 ABG pO2 ABG HCO3 ABG Base Excess ABG Hemoglobin ABG Oxyhemoglobin ABG Sodium ABG Potassium ABG Chloride ABG Glucose Oxyhemoglobin Carboxyhemoglobin Sodium Potassium Chloride Carbon Dioxide BUN Creatinine Glucose POC Glucose 386 H 418 H 431 H Hemoglobin A1c Lactic Acid Calcium Ferritin Total Bilirubin AST ALT Lactate Dehydrogenase C-Reactive Protein NT-Pro-B Natriuret Pep Total Protein Albumin Triglycerides Arterial Blood Glucose Arterial Blood Ionized Calcium Urine WBC (Auto) U Epithel Cells (Auto) Urine Creatinine Random Vancomycin Coronavirus (PCR) SARS-CoV-2 IgG Ab 03/12/20 03/12/20 03/12/20 11:34 16:53 22:20 WBC RBC Hgb Hct MCH MCHC RDW Lymph % (Auto) [place] % (Auto) Lymph # (Auto) [place] # (Auto) Seg Neutrophils % Seg Neutrophils # APTT D-Dimer Heparin Anti-Xa Level ABG pH POC ABG pCO2 POC ABG pO2 ABG pO2 ABG HCO3 ABG Base Excess ABG Hemoglobin ABG Oxyhemoglobin ABG Sodium ABG Potassium ABG Chloride ABG Glucose Oxyhemoglobin Carboxyhemoglobin Sodium Potassium Chloride Carbon Dioxide BUN Creatinine Glucose POC Glucose 310 H 358 H 295 H Hemoglobin A1c Lactic Acid Calcium Ferritin Total Bilirubin AST ALT Lactate Dehydrogenase C-Reactive Protein NT-Pro-B Natriuret Pep Total Protein Albumin Triglycerides Arterial Blood Glucose Arterial Blood Ionized Calcium Urine WBC (Auto) U Epithel Cells (Auto) Urine Creatinine Random Vancomycin Coronavirus (PCR) SARS-CoV-2 IgG Ab 03/13/20 03/13/20 03/13/20 05:48 09:15 12:09 WBC 18.3 H RBC Hgb Hct MCH 24 L MCHC 29 L RDW 18.9 H Lymph % (Auto) 7.8 L [place] % (Auto) 9.7 H Lymph # (Auto) [place] # (Auto) 1.8 H Seg Neutrophils % 82.0 H Seg Neutrophils # 15.0 H APTT D-Dimer Heparin Anti-Xa Level ABG pH 7.327 L POC ABG pCO2 POC ABG pO2 ABG pO2 73.0 L ABG HCO3 39.3 H ABG Base Excess 10.8 H ABG Hemoglobin 11.2 L ABG Oxyhemoglobin ABG Sodium ABG Potassium ABG Chloride ABG Glucose Oxyhemoglobin 93.4 L Carboxyhemoglobin Sodium Potassium Chloride Carbon Dioxide BUN Creatinine Glucose POC Glucose 216 H Hemoglobin A1c Lactic Acid Calcium Ferritin Total Bilirubin AST ALT Lactate Dehydrogenase C-Reactive Protein NT-Pro-B Natriuret Pep Total Protein Albumin Triglycerides Arterial Blood Glucose Arterial Blood Ionized Calcium Urine WBC (Auto) U Epithel Cells (Auto) Urine Creatinine Random Vancomycin Coronavirus (PCR) SARS-CoV-2 IgG Ab 03/13/20 03/13/20 03/13/20 12:09 12:11 17:23 WBC RBC Hgb Hct MCH MCHC RDW Lymph % (Auto) [place] % (Auto) Lymph # (Auto) [place] # (Auto) Seg Neutrophils % Seg Neutrophils # APTT D-Dimer Heparin Anti-Xa Level ABG pH POC ABG pCO2 POC ABG pO2 ABG pO2 ABG HCO3 ABG Base Excess ABG Hemoglobin ABG Oxyhemoglobin ABG Sodium ABG Potassium ABG Chloride ABG Glucose Oxyhemoglobin Carboxyhemoglobin Sodium Potassium 5.1 H Chloride Carbon Dioxide 37 H D BUN Creatinine Glucose 154 H POC Glucose 148 H 217 H Hemoglobin A1c Lactic Acid Calcium Ferritin Total Bilirubin AST 47 H ALT 128 H Lactate Dehydrogenase C-Reactive Protein NT-Pro-B Natriuret Pep Total Protein 5.9 L Albumin 3.0 L Triglycerides Arterial Blood Glucose Arterial Blood Ionized Calcium Urine WBC (Auto) U Epithel Cells (Auto) Urine Creatinine Random Vancomycin Coronavirus (PCR) SARS-CoV-2 IgG Ab 03/14/20 03/14/20 03/14/20 06:15 06:55 09:17 WBC 14.9 H RBC Hgb Hct MCH 25 L MCHC RDW 19.1 H Lymph % (Auto) 9.5 L [place] % (Auto) Lymph # (Auto) [place] # (Auto) 0.9 H Seg Neutrophils % 83.8 H Seg Neutrophils # 12.5 H APTT D-Dimer Heparin Anti-Xa Level ABG pH 7.544 H POC ABG pCO2 POC ABG pO2 ABG pO2 92.8 H ABG HCO3 37.3 H ABG Base Excess 13.5 H ABG Hemoglobin 10.5 L ABG Oxyhemoglobin ABG Sodium ABG Potassium ABG Chloride ABG Glucose Oxyhemoglobin Carboxyhemoglobin Sodium Potassium Chloride Carbon Dioxide BUN Creatinine Glucose POC Glucose 182 H Hemoglobin A1c Lactic Acid Calcium Ferritin Total Bilirubin AST ALT Lactate Dehydrogenase C-Reactive Protein NT-Pro-B Natriuret Pep Total Protein Albumin Triglycerides Arterial Blood Glucose Arterial Blood Ionized Calcium Urine WBC (Auto) U Epithel Cells (Auto) Urine Creatinine Random Vancomycin Coronavirus (PCR) SARS-CoV-2 IgG Ab 03/14/20 03/14/20 03/14/20 09:17 11:43 17:47 WBC RBC Hgb Hct MCH MCHC RDW Lymph % (Auto) [place] % (Auto) Lymph # (Auto) [place] # (Auto) Seg Neutrophils % Seg Neutrophils # APTT D-Dimer Heparin Anti-Xa Level ABG pH POC ABG pCO2 POC ABG pO2 ABG pO2 ABG HCO3 ABG Base Excess ABG Hemoglobin ABG Oxyhemoglobin ABG Sodium ABG Potassium ABG Chloride ABG Glucose Oxyhemoglobin Carboxyhemoglobin Sodium Potassium Chloride Carbon Dioxide 34 H BUN Creatinine 0.5 L Glucose 204 H POC Glucose 283 H 254 H Hemoglobin A1c Lactic Acid Calcium Ferritin Total Bilirubin 2.60 H AST 82 H ALT 152 H Lactate Dehydrogenase C-Reactive Protein NT-Pro-B Natriuret Pep Total Protein 5.7 L Albumin 3.0 L Triglycerides Arterial Blood Glucose Arterial Blood Ionized Calcium Urine WBC (Auto) U Epithel Cells (Auto) Urine Creatinine Random Vancomycin Coronavirus (PCR) SARS-CoV-2 IgG Ab 03/14/20 03/15/20 03/15/20 23:59 03:08 05:52 WBC RBC Hgb Hct MCH MCHC RDW Lymph % (Auto) [place] % (Auto) Lymph # (Auto) [place] # (Auto) Seg Neutrophils % Seg Neutrophils # APTT D-Dimer Heparin Anti-Xa Level ABG pH 7.536 H POC ABG pCO2 POC ABG pO2 ABG pO2 ABG HCO3 ABG Base Excess ABG Hemoglobin 10.7 L ABG Oxyhemoglobin ABG Sodium 135.2 L ABG Potassium ABG Chloride ABG Glucose 317 H Oxyhemoglobin Carboxyhemoglobin Sodium Potassium Chloride Carbon Dioxide BUN Creatinine Glucose POC Glucose 293 H 293 H Hemoglobin A1c Lactic Acid Calcium Ferritin Total Bilirubin AST ALT Lactate Dehydrogenase C-Reactive Protein NT-Pro-B Natriuret Pep Total Protein Albumin Triglycerides Arterial Blood Glucose 317 H Arterial Blood Ionized Calcium 4.5 L Urine WBC (Auto) U Epithel Cells (Auto) Urine Creatinine Random Vancomycin Coronavirus (PCR) SARS-CoV-2 IgG Ab 03/15/20 03/15/20 03/15/20 13:29 17:43 23:26 WBC RBC Hgb Hct MCH MCHC RDW Lymph % (Auto) [place] % (Auto) Lymph # (Auto) [place] # (Auto) Seg Neutrophils % Seg Neutrophils # APTT D-Dimer Heparin Anti-Xa Level ABG pH POC ABG pCO2 POC ABG pO2 ABG pO2 ABG HCO3 ABG Base Excess ABG Hemoglobin ABG Oxyhemoglobin ABG Sodium ABG Potassium ABG Chloride ABG Glucose Oxyhemoglobin Carboxyhemoglobin Sodium Potassium Chloride Carbon Dioxide BUN Creatinine Glucose POC Glucose 299 H 327 H 325 H Hemoglobin A1c Lactic Acid Calcium Ferritin Total Bilirubin AST ALT Lactate Dehydrogenase C-Reactive Protein NT-Pro-B Natriuret Pep Total Protein Albumin Triglycerides Arterial Blood Glucose Arterial Blood Ionized Calcium Urine WBC (Auto) U Epithel Cells (Auto) Urine Creatinine Random Vancomycin Coronavirus (PCR) SARS-CoV-2 IgG Ab 03/16/20 03/16/20 03/16/20 01:28 04:44 05:26 WBC RBC Hgb Hct MCH MCHC RDW Lymph % (Auto) [place] % (Auto) Lymph # (Auto) [place] # (Auto) Seg Neutrophils % Seg Neutrophils # APTT D-Dimer Heparin Anti-Xa Level ABG pH 7.540 H POC ABG pCO2 POC ABG pO2 ABG pO2 ABG HCO3 ABG Base Excess ABG Hemoglobin 10.5 L ABG Oxyhemoglobin ABG Sodium ABG Potassium ABG Chloride ABG Glucose 312 H Oxyhemoglobin Carboxyhemoglobin Sodium Potassium Chloride Carbon Dioxide BUN 18 H Creatinine Glucose 330 H POC Glucose 264 H Hemoglobin A1c Lactic Acid Calcium Ferritin Total Bilirubin AST ALT Lactate Dehydrogenase C-Reactive Protein NT-Pro-B Natriuret Pep Total Protein Albumin Triglycerides Arterial Blood Glucose 312 H Arterial Blood Ionized Calcium Urine WBC (Auto) U Epithel Cells (Auto) Urine Creatinine Random Vancomycin Coronavirus (PCR) SARS-CoV-2 IgG Ab 03/16/20 03/16/20 03/16/20 11:58 17:51 17:54 WBC RBC Hgb Hct MCH MCHC RDW Lymph % (Auto) [place] % (Auto) Lymph # (Auto) [place] # (Auto) Seg Neutrophils % Seg Neutrophils # APTT D-Dimer Heparin Anti-Xa Level ABG pH POC ABG pCO2 58.9 H POC ABG pO2 142.4 H ABG pO2 ABG HCO3 ABG Base Excess ABG Hemoglobin 11.6 L ABG Oxyhemoglobin ABG Sodium 135.9 L ABG Potassium 4.9 H ABG Chloride ABG Glucose 332 H Oxyhemoglobin Carboxyhemoglobin Sodium Potassium Chloride Carbon Dioxide BUN Creatinine Glucose POC Glucose 196 H 285 H Hemoglobin A1c Lactic Acid Calcium Ferritin Total Bilirubin AST ALT Lactate Dehydrogenase C-Reactive Protein NT-Pro-B Natriuret Pep Total Protein Albumin Triglycerides Arterial Blood Glucose 332 H Arterial Blood Ionized Calcium Urine WBC (Auto) U Epithel Cells (Auto) Urine Creatinine Random Vancomycin Coronavirus (PCR) SARS-CoV-2 IgG Ab 03/16/20 03/16/20 03/17/20 17:56 23:43 03:13 WBC RBC Hgb Hct MCH MCHC RDW Lymph % (Auto) [place] % (Auto) Lymph # (Auto) [place] # (Auto) Seg Neutrophils % Seg Neutrophils # APTT D-Dimer Heparin Anti-Xa Level ABG pH POC ABG pCO2 POC ABG pO2 ABG pO2 ABG HCO3 ABG Base Excess ABG Hemoglobin ABG Oxyhemoglobin ABG Sodium ABG Potassium ABG Chloride ABG Glucose Oxyhemoglobin Carboxyhemoglobin Sodium Potassium Chloride Carbon Dioxide BUN Creatinine Glucose POC Glucose 258 H Hemoglobin A1c Lactic Acid Calcium Ferritin Total Bilirubin AST ALT Lactate Dehydrogenase C-Reactive Protein NT-Pro-B Natriuret Pep Total Protein Albumin Triglycerides 252 H Arterial Blood Glucose Arterial Blood Ionized Calcium Urine WBC (Auto) U Epithel Cells (Auto) Urine Creatinine Random Vancomycin Coronavirus (PCR) SARS-CoV-2 IgG Ab Reactive A 03/17/20 03/17/20 03/17/20 05:33 11:12 11:55 WBC RBC Hgb 9.2 L Hct 29.7 L MCH 25 L MCHC RDW 19.9 H Lymph % (Auto) [place] % (Auto) Lymph # (Auto) [place] # (Auto) Seg Neutrophils % Seg Neutrophils # APTT D-Dimer Heparin Anti-Xa Level ABG pH POC ABG pCO2 POC ABG pO2 ABG pO2 ABG HCO3 ABG Base Excess ABG Hemoglobin ABG Oxyhemoglobin ABG Sodium ABG Potassium ABG Chloride ABG Glucose Oxyhemoglobin Carboxyhemoglobin Sodium Potassium Chloride Carbon Dioxide BUN Creatinine Glucose POC Glucose 157 H 112 H Hemoglobin A1c Lactic Acid Calcium Ferritin Total Bilirubin AST ALT Lactate Dehydrogenase C-Reactive Protein NT-Pro-B Natriuret Pep Total Protein Albumin Triglycerides Arterial Blood Glucose Arterial Blood Ionized Calcium Urine WBC (Auto) U Epithel Cells (Auto) Urine Creatinine Random Vancomycin Coronavirus (PCR) SARS-CoV-2 IgG Ab 03/17/20 03/17/20 03/17/20 11:55 11:55 17:20 WBC RBC Hgb Hct MCH MCHC RDW Lymph % (Auto) [place] % (Auto) Lymph # (Auto) [place] # (Auto) Seg Neutrophils % Seg Neutrophils # APTT D-Dimer Heparin Anti-Xa Level ABG pH POC ABG pCO2 POC ABG pO2 ABG pO2 ABG HCO3 ABG Base Excess ABG Hemoglobin 10.2 L ABG Oxyhemoglobin ABG Sodium ABG Potassium ABG Chloride ABG Glucose 137 H Oxyhemoglobin Carboxyhemoglobin Sodium Potassium Chloride Carbon Dioxide BUN 21 H Creatinine 0.5 L Glucose 118 H POC Glucose 178 H Hemoglobin A1c Lactic Acid Calcium Ferritin Total Bilirubin AST ALT Lactate Dehydrogenase C-Reactive Protein NT-Pro-B Natriuret Pep Total Protein Albumin Triglycerides Arterial Blood Glucose 137 H Arterial Blood Ionized Calcium Urine WBC (Auto) U Epithel Cells (Auto) Urine Creatinine Random Vancomycin Coronavirus (PCR) SARS-CoV-2 IgG Ab 03/18/20 03/18/20 03/18/20 00:16 03:33 05:48 WBC RBC Hgb Hct MCH MCHC RDW Lymph % (Auto) [place] % (Auto) Lymph # (Auto) [place] # (Auto) Seg Neutrophils % Seg Neutrophils # APTT D-Dimer Heparin Anti-Xa Level ABG pH 7.568 H POC ABG pCO2 30.6 L POC ABG pO2 167.6 H ABG pO2 ABG HCO3 ABG Base Excess ABG Hemoglobin 10.9 L ABG Oxyhemoglobin ABG Sodium 133.8 L ABG Potassium ABG Chloride ABG Glucose 125 H Oxyhemoglobin Carboxyhemoglobin Sodium Potassium Chloride Carbon Dioxide BUN Creatinine Glucose POC Glucose 119 H 114 H Hemoglobin A1c Lactic Acid Calcium Ferritin Total Bilirubin AST ALT Lactate Dehydrogenase C-Reactive Protein NT-Pro-B Natriuret Pep Total Protein Albumin Triglycerides Arterial Blood Glucose 125 H Arterial Blood Ionized Calcium Urine WBC (Auto) U Epithel Cells (Auto) Urine Creatinine Random Vancomycin Coronavirus (PCR) SARS-CoV-2 IgG Ab 03/18/20 03/18/20 03/18/20 11:46 17:11 23:18 WBC RBC Hgb Hct MCH MCHC RDW Lymph % (Auto) [place] % (Auto) Lymph # (Auto) [place] # (Auto) Seg Neutrophils % Seg Neutrophils # APTT D-Dimer Heparin Anti-Xa Level ABG pH POC ABG pCO2 POC ABG pO2 ABG pO2 ABG HCO3 ABG Base Excess ABG Hemoglobin ABG Oxyhemoglobin ABG Sodium ABG Potassium ABG Chloride ABG Glucose Oxyhemoglobin Carboxyhemoglobin Sodium Potassium Chloride Carbon Dioxide BUN Creatinine Glucose POC Glucose 165 H 155 H 142 H Hemoglobin A1c Lactic Acid Calcium Ferritin Total Bilirubin AST ALT Lactate Dehydrogenase C-Reactive Protein NT-Pro-B Natriuret Pep Total Protein Albumin Triglycerides Arterial Blood Glucose Arterial Blood Ionized Calcium Urine WBC (Auto) U Epithel Cells (Auto) Urine Creatinine Random Vancomycin Coronavirus (PCR) SARS-CoV-2 IgG Ab 03/19/20 03/19/20 03/19/20 04:41 05:03 10:47 WBC RBC Hgb Hct MCH MCHC RDW Lymph % (Auto) [place] % (Auto) Lymph # (Auto) [place] # (Auto) Seg Neutrophils % Seg Neutrophils # APTT D-Dimer Heparin Anti-Xa Level ABG pH 7.041 L 7.231 L POC ABG pCO2 100.4 H 67.5 H POC ABG pO2 142.4 H ABG pO2 ABG HCO3 ABG Base Excess ABG Hemoglobin 11.2 L 9.7 L ABG Oxyhemoglobin ABG Sodium 135.8 L 134.8 L ABG Potassium 5.3 H 4.8 H ABG Chloride ABG Glucose 150 H 160 H Oxyhemoglobin Carboxyhemoglobin 1.6 H Sodium Potassium Chloride Carbon Dioxide BUN Creatinine Glucose POC Glucose 123 H Hemoglobin A1c Lactic Acid Calcium Ferritin Total Bilirubin AST ALT Lactate Dehydrogenase C-Reactive Protein NT-Pro-B Natriuret Pep Total Protein Albumin Triglycerides Arterial Blood Glucose 150 H 160 H Arterial Blood Ionized Calcium Urine WBC (Auto) U Epithel Cells (Auto) Urine Creatinine Random Vancomycin Coronavirus (PCR) SARS-CoV-2 IgG Ab 03/19/20 03/19/20 03/19/20 11:41 14:00 14:00 WBC RBC Hgb 10.0 L Hct MCH 26 L MCHC RDW 20.5 H Lymph % (Auto) [place] % (Auto) Lymph # (Auto) [place] # (Auto) Seg Neutrophils % Seg Neutrophils # APTT 22.4 L D-Dimer Heparin Anti-Xa Level ABG pH POC ABG pCO2 POC ABG pO2 ABG pO2 ABG HCO3 ABG Base Excess ABG Hemoglobin ABG Oxyhemoglobin ABG Sodium ABG Potassium ABG Chloride ABG Glucose Oxyhemoglobin Carboxyhemoglobin Sodium Potassium Chloride Carbon Dioxide BUN Creatinine Glucose POC Glucose 153 H Hemoglobin A1c Lactic Acid Calcium Ferritin Total Bilirubin AST ALT Lactate Dehydrogenase C-Reactive Protein NT-Pro-B Natriuret Pep Total Protein Albumin Triglycerides Arterial Blood Glucose Arterial Blood Ionized Calcium Urine WBC (Auto) U Epithel Cells (Auto) Urine Creatinine Random Vancomycin Coronavirus (PCR) SARS-CoV-2 IgG Ab 03/19/20 03/19/20 03/19/20 14:00 14:40 21:29 WBC RBC Hgb Hct MCH MCHC RDW Lymph % (Auto) [place] % (Auto) Lymph # (Auto) [place] # (Auto) Seg Neutrophils % Seg Neutrophils # APTT D-Dimer Heparin Anti-Xa Level ABG pH 7.168 L POC ABG pCO2 79.0 H POC ABG pO2 56.5 L 61.2 L ABG pO2 ABG HCO3 ABG Base Excess ABG Hemoglobin 10.8 L 10.0 L ABG Oxyhemoglobin 82.6 L 89.5 L ABG Sodium 135.6 L ABG Potassium ABG Chloride ABG Glucose 214 H 99 H Oxyhemoglobin Carboxyhemoglobin 2.0 H Sodium Potassium Chloride Carbon Dioxide BUN 42 H Creatinine 2.5 H D Glucose 235 H POC Glucose Hemoglobin A1c Lactic Acid Calcium Ferritin Total Bilirubin AST ALT Lactate Dehydrogenase C-Reactive Protein NT-Pro-B Natriuret Pep Total Protein Albumin Triglycerides Arterial Blood Glucose 214 H 99 H Arterial Blood Ionized Calcium Urine WBC (Auto) U Epithel Cells (Auto) Urine Creatinine Random Vancomycin Coronavirus (PCR) SARS-CoV-2 IgG Ab 03/19/20 03/20/20 03/20/20 21:56 05:00 05:00 WBC RBC Hgb Hct MCH MCHC RDW Lymph % (Auto) [place] % (Auto) Lymph # (Auto) [place] # (Auto) Seg Neutrophils % Seg Neutrophils # APTT D-Dimer Heparin Anti-Xa Level 0.26 L ABG pH POC ABG pCO2 POC ABG pO2 ABG pO2 ABG HCO3 ABG Base Excess ABG Hemoglobin ABG Oxyhemoglobin ABG Sodium ABG Potassium ABG Chloride ABG Glucose Oxyhemoglobin Carboxyhemoglobin Sodium Potassium Chloride Carbon Dioxide BUN 48 H Creatinine 2.2 H Glucose 138 H POC Glucose Hemoglobin A1c Lactic Acid Calcium Ferritin Total Bilirubin AST ALT Lactate Dehydrogenase C-Reactive Protein NT-Pro-B Natriuret Pep Total Protein Albumin Triglycerides Arterial Blood Glucose Arterial Blood Ionized Calcium Urine WBC (Auto) U Epithel Cells (Auto) Urine Creatinine Random Vancomycin 54.2 H Coronavirus (PCR) SARS-CoV-2 IgG Ab 03/20/20 03/20/20 03/20/20 05:16 07:15 11:52 WBC RBC Hgb Hct MCH MCHC RDW Lymph % (Auto) [place] % (Auto) Lymph # (Auto) [place] # (Auto) Seg Neutrophils % Seg Neutrophils # APTT D-Dimer Heparin Anti-Xa Level 0.10 L ABG pH POC ABG pCO2 POC ABG pO2 ABG pO2 ABG HCO3 ABG Base Excess ABG Hemoglobin ABG Oxyhemoglobin ABG Sodium ABG Potassium ABG Chloride ABG Glucose Oxyhemoglobin Carboxyhemoglobin Sodium Potassium Chloride Carbon Dioxide BUN Creatinine Glucose POC Glucose 128 H 145 H Hemoglobin A1c Lactic Acid Calcium Ferritin Total Bilirubin AST ALT Lactate Dehydrogenase C-Reactive Protein NT-Pro-B Natriuret Pep Total Protein Albumin Triglycerides Arterial Blood Glucose Arterial Blood Ionized Calcium Urine WBC (Auto) U Epithel Cells (Auto) Urine Creatinine Random Vancomycin Coronavirus (PCR) SARS-CoV-2 IgG Ab 03/20/20 03/20/20 03/20/20 13:44 14:55 17:04 WBC RBC Hgb Hct MCH MCHC RDW Lymph % (Auto) [place] % (Auto) Lymph # (Auto) [place] # (Auto) Seg Neutrophils % Seg Neutrophils # APTT D-Dimer Heparin Anti-Xa Level 0.79 H ABG pH POC ABG pCO2 POC ABG pO2 ABG pO2 ABG HCO3 ABG Base Excess ABG Hemoglobin ABG Oxyhemoglobin ABG Sodium ABG Potassium ABG Chloride ABG Glucose Oxyhemoglobin Carboxyhemoglobin Sodium Potassium Chloride Carbon Dioxide BUN Creatinine Glucose POC Glucose 179 H Hemoglobin A1c Lactic Acid Calcium Ferritin Total Bilirubin AST ALT Lactate Dehydrogenase C-Reactive Protein NT-Pro-B Natriuret Pep Total Protein Albumin Triglycerides Arterial Blood Glucose Arterial Blood Ionized Calcium Urine WBC (Auto) U Epithel Cells (Auto) Urine Creatinine 137.9 H Random Vancomycin Coronavirus (PCR) SARS-CoV-2 IgG Ab 03/20/20 03/21/20 03/21/20 23:23 05:29 08:37 WBC RBC Hgb Hct MCH MCHC RDW Lymph % (Auto) [place] % (Auto) Lymph # (Auto) [place] # (Auto) Seg Neutrophils % Seg Neutrophils # APTT D-Dimer Heparin Anti-Xa Level ABG pH POC ABG pCO2 POC ABG pO2 210.3 H ABG pO2 ABG HCO3 ABG Base Excess ABG Hemoglobin 9.5 L ABG Oxyhemoglobin ABG Sodium 132.1 L ABG Potassium ABG Chloride ABG Glucose 179 H Oxyhemoglobin Carboxyhemoglobin Sodium Potassium Chloride Carbon Dioxide BUN Creatinine Glucose POC Glucose 168 H 157 H Hemoglobin A1c Lactic Acid Calcium Ferritin Total Bilirubin AST ALT Lactate Dehydrogenase C-Reactive Protein NT-Pro-B Natriuret Pep Total Protein Albumin Triglycerides Arterial Blood Glucose 179 H Arterial Blood Ionized Calcium 4.5 L Urine WBC (Auto) U Epithel Cells (Auto) Urine Creatinine Random Vancomycin Coronavirus (PCR) SARS-CoV-2 IgG Ab 03/21/20 03/21/20 03/21/20 12:01 12:20 17:12 WBC RBC Hgb Hct MCH MCHC RDW Lymph % (Auto) [place] % (Auto) Lymph # (Auto) [place] # (Auto) Seg Neutrophils % Seg Neutrophils # APTT D-Dimer Heparin Anti-Xa Level ABG pH POC ABG pCO2 POC ABG pO2 ABG pO2 ABG HCO3 ABG Base Excess ABG Hemoglobin ABG Oxyhemoglobin ABG Sodium ABG Potassium ABG Chloride ABG Glucose Oxyhemoglobin Carboxyhemoglobin Sodium 133 L Potassium Chloride Carbon Dioxide 19 L BUN 56 H Creatinine 2.3 H Glucose 157 H POC Glucose 171 H 215 H Hemoglobin A1c Lactic Acid Calcium 6.8 L D Ferritin Total Bilirubin AST 54 H ALT 84 H Lactate Dehydrogenase C-Reactive Protein NT-Pro-B Natriuret Pep Total Protein 4.4 L Albumin 1.7 L Triglycerides Arterial Blood Glucose Arterial Blood Ionized Calcium Urine WBC (Auto) U Epithel Cells (Auto) Urine Creatinine Random Vancomycin Coronavirus (PCR) SARS-CoV-2 IgG Ab 03/21/20 03/22/20 03/22/20 23:14 00:42 02:57 WBC RBC Hgb 9.3 L Hct 30.2 L MCH MCHC RDW Lymph % (Auto) [place] % (Auto) Lymph # (Auto) [place] # (Auto) Seg Neutrophils % Seg Neutrophils # APTT D-Dimer Heparin Anti-Xa Level ABG pH POC ABG pCO2 POC ABG pO2 141.4 H ABG pO2 ABG HCO3 ABG Base Excess ABG Hemoglobin 9.4 L ABG Oxyhemoglobin ABG Sodium 132.3 L ABG Potassium 4.6 H ABG Chloride ABG Glucose 217 H Oxyhemoglobin Carboxyhemoglobin Sodium Potassium Chloride Carbon Dioxide BUN Creatinine Glucose POC Glucose 191 H Hemoglobin A1c Lactic Acid Calcium Ferritin Total Bilirubin AST ALT Lactate Dehydrogenase C-Reactive Protein NT-Pro-B Natriuret Pep Total Protein Albumin Triglycerides Arterial Blood Glucose 217 H Arterial Blood Ionized Calcium Urine WBC (Auto) U Epithel Cells (Auto) Urine Creatinine Random Vancomycin Coronavirus (PCR) SARS-CoV-2 IgG Ab 03/22/20 03/22/20 03/22/20 05:13 08:00 08:00 WBC RBC 3.34 L Hgb 8.4 L Hct 26.8 L MCH 25 L MCHC RDW 20.2 H Lymph % (Auto) 7.7 L [place] % (Auto) Lymph # (Auto) 0.7 L [place] # (Auto) Seg Neutrophils % 84.0 H Seg Neutrophils # 7.8 H APTT D-Dimer Heparin Anti-Xa Level ABG pH POC ABG pCO2 POC ABG pO2 ABG pO2 ABG HCO3 ABG Base Excess ABG Hemoglobin ABG Oxyhemoglobin ABG Sodium ABG Potassium ABG Chloride ABG Glucose Oxyhemoglobin Carboxyhemoglobin Sodium 134 L Potassium Chloride Carbon Dioxide BUN 64 H Creatinine 2.3 H Glucose 207 H POC Glucose 201 H Hemoglobin A1c Lactic Acid Calcium Ferritin Total Bilirubin AST ALT Lactate Dehydrogenase C-Reactive Protein NT-Pro-B Natriuret Pep Total Protein Albumin Triglycerides Arterial Blood Glucose Arterial Blood Ionized Calcium Urine WBC (Auto) U Epithel Cells (Auto) Urine Creatinine Random Vancomycin Coronavirus (PCR) SARS-CoV-2 IgG Ab 03/22/20 03/22/20 03/22/20 11:17 15:00 16:53 WBC RBC Hgb Hct MCH MCHC RDW Lymph % (Auto) [place] % (Auto) Lymph # (Auto) [place] # (Auto) Seg Neutrophils % Seg Neutrophils # APTT D-Dimer Heparin Anti-Xa Level ABG pH POC ABG pCO2 POC ABG pO2 ABG pO2 ABG HCO3 ABG Base Excess ABG Hemoglobin ABG Oxyhemoglobin ABG Sodium ABG Potassium ABG Chloride ABG Glucose Oxyhemoglobin Carboxyhemoglobin Sodium Potassium Chloride Carbon Dioxide BUN Creatinine Glucose POC Glucose 198 H 182 H Hemoglobin A1c Lactic Acid Calcium Ferritin Total Bilirubin AST ALT Lactate Dehydrogenase C-Reactive Protein NT-Pro-B Natriuret Pep Total Protein Albumin Triglycerides Arterial Blood Glucose Arterial Blood Ionized Calcium Urine WBC (Auto) > 182.0 H U Epithel Cells (Auto) 17.0 H Urine Creatinine Random Vancomycin Coronavirus (PCR) SARS-CoV-2 IgG Ab 03/22/20 03/22/20 03/23/20 23:17 23:27 05:30 WBC RBC Hgb Hct MCH MCHC RDW Lymph % (Auto) [place] % (Auto) Lymph # (Auto) [place] # (Auto) Seg Neutrophils % Seg Neutrophils # APTT D-Dimer Heparin Anti-Xa Level 0.17 L ABG pH POC ABG pCO2 POC ABG pO2 ABG pO2 ABG HCO3 ABG Base Excess ABG Hemoglobin ABG Oxyhemoglobin ABG Sodium ABG Potassium ABG Chloride ABG Glucose Oxyhemoglobin Carboxyhemoglobin Sodium Potassium Chloride Carbon Dioxide BUN Creatinine Glucose POC Glucose 235 H 283 H Hemoglobin A1c Lactic Acid Calcium Ferritin Total Bilirubin AST ALT Lactate Dehydrogenase C-Reactive Protein NT-Pro-B Natriuret Pep Total Protein Albumin Triglycerides Arterial Blood Glucose Arterial Blood Ionized Calcium Urine WBC (Auto) U Epithel Cells (Auto) Urine Creatinine Random Vancomycin Coronavirus (PCR) SARS-CoV-2 IgG Ab 03/23/20 03/23/20 03/23/20 06:00 09:30 09:30 WBC RBC Hgb 8.8 L Hct 28.4 L MCH MCHC RDW Lymph % (Auto) [place] % (Auto) Lymph # (Auto) [place] # (Auto) Seg Neutrophils % Seg Neutrophils # APTT D-Dimer 1509.37 H Heparin Anti-Xa Level ABG pH POC ABG pCO2 POC ABG pO2 ABG pO2 ABG HCO3 ABG Base Excess ABG Hemoglobin ABG Oxyhemoglobin ABG Sodium ABG Potassium ABG Chloride ABG Glucose Oxyhemoglobin Carboxyhemoglobin Sodium Potassium Chloride Carbon Dioxide BUN Creatinine Glucose POC Glucose Hemoglobin A1c Lactic Acid Calcium Ferritin 284.9 H Total Bilirubin AST ALT Lactate Dehydrogenase C-Reactive Protein NT-Pro-B Natriuret Pep Total Protein Albumin Triglycerides Arterial Blood Glucose Arterial Blood Ionized Calcium Urine WBC (Auto) U Epithel Cells (Auto) Urine Creatinine Random Vancomycin Coronavirus (PCR) SARS-CoV-2 IgG Ab 03/23/20 03/23/20 03/23/20 09:30 11:54 12:00 WBC RBC Hgb Hct MCH MCHC RDW Lymph % (Auto) [place] % (Auto) Lymph # (Auto) [place] # (Auto) Seg Neutrophils % Seg Neutrophils # APTT D-Dimer Heparin Anti-Xa Level 1.87 H ABG pH POC ABG pCO2 POC ABG pO2 ABG pO2 ABG HCO3 ABG Base Excess ABG Hemoglobin ABG Oxyhemoglobin ABG Sodium ABG Potassium ABG Chloride ABG Glucose Oxyhemoglobin Carboxyhemoglobin Sodium Potassium 5.2 H Chloride 110.1 H Carbon Dioxide BUN 57 H Creatinine 1.4 H Glucose 318 H POC Glucose 287 H Hemoglobin A1c Lactic Acid Calcium Ferritin Total Bilirubin AST ALT Lactate Dehydrogenase 414 H C-Reactive Protein 26.30 H NT-Pro-B Natriuret Pep Total Protein Albumin Triglycerides Arterial Blood Glucose Arterial Blood Ionized Calcium Urine WBC (Auto) U Epithel Cells (Auto) Urine Creatinine Random Vancomycin Coronavirus (PCR) SARS-CoV-2 IgG Ab 03/23/20 03/23/20 03/23/20 17:42 23:27 Unknown WBC RBC Hgb Hct MCH MCHC RDW Lymph % (Auto) [place] % (Auto) Lymph # (Auto) [place] # (Auto) Seg Neutrophils % Seg Neutrophils # APTT D-Dimer Heparin Anti-Xa Level ABG pH POC ABG pCO2 POC ABG pO2 81.6 L ABG pO2 ABG HCO3 ABG Base Excess ABG Hemoglobin 10.1 L ABG Oxyhemoglobin ABG Sodium ABG Potassium 5.1 H ABG Chloride 109.0 H ABG Glucose 295 H Oxyhemoglobin Carboxyhemoglobin Sodium Potassium Chloride Carbon Dioxide BUN Creatinine Glucose POC Glucose 281 H 266 H Hemoglobin A1c Lactic Acid Calcium Ferritin Total Bilirubin AST ALT Lactate Dehydrogenase C-Reactive Protein NT-Pro-B Natriuret Pep Total Protein Albumin Triglycerides Arterial Blood Glucose 295 H Arterial Blood Ionized Calcium Urine WBC (Auto) U Epithel Cells (Auto) Urine Creatinine Random Vancomycin Coronavirus (PCR) SARS-CoV-2 IgG Ab 03/24/20 03/24/20 03/24/20 02:08 03:50 05:31 WBC RBC Hgb Hct MCH MCHC RDW Lymph % (Auto) [place] % (Auto) Lymph # (Auto) [place] # (Auto) Seg Neutrophils % Seg Neutrophils # APTT D-Dimer Heparin Anti-Xa Level ABG pH 7.452 H POC ABG pCO2 POC ABG pO2 ABG pO2 96.6 H ABG HCO3 26.7 H ABG Base Excess ABG Hemoglobin 9.0 L ABG Oxyhemoglobin ABG Sodium ABG Potassium ABG Chloride ABG Glucose Oxyhemoglobin Carboxyhemoglobin Sodium 156 H D Potassium 5.4 H Chloride 120.4 H Carbon Dioxide BUN 54 H Creatinine Glucose 352 H POC Glucose 307 H Hemoglobin A1c Lactic Acid Calcium Ferritin Total Bilirubin AST ALT Lactate Dehydrogenase C-Reactive Protein NT-Pro-B Natriuret Pep Total Protein Albumin Triglycerides Arterial Blood Glucose Arterial Blood Ionized Calcium Urine WBC (Auto) U Epithel Cells (Auto) Urine Creatinine Random Vancomycin Coronavirus (PCR) SARS-CoV-2 IgG Ab 03/24/20 03/24/20 03/24/20 12:35 16:00 18:30 WBC RBC Hgb Hct MCH MCHC RDW Lymph % (Auto) [place] % (Auto) Lymph # (Auto) [place] # (Auto) Seg Neutrophils % Seg Neutrophils # APTT D-Dimer Heparin Anti-Xa Level 0.18 L ABG pH POC ABG pCO2 POC ABG pO2 ABG pO2 ABG HCO3 ABG Base Excess ABG Hemoglobin ABG Oxyhemoglobin ABG Sodium ABG Potassium ABG Chloride ABG Glucose Oxyhemoglobin Carboxyhemoglobin Sodium Potassium Chloride Carbon Dioxide BUN Creatinine Glucose POC Glucose 303 H 328 H Hemoglobin A1c Lactic Acid Calcium Ferritin Total Bilirubin AST ALT Lactate Dehydrogenase C-Reactive Protein NT-Pro-B Natriuret Pep Total Protein Albumin Triglycerides Arterial Blood Glucose Arterial Blood Ionized Calcium Urine WBC (Auto) U Epithel Cells (Auto) Urine Creatinine Random Vancomycin Coronavirus (PCR) SARS-CoV-2 IgG Ab 03/24/20 03/25/20 03/25/20 23:36 03:35 05:15 WBC 11.8 H RBC 3.50 L Hgb 8.5 L Hct 28.7 L MCH 24 L MCHC RDW 20.9 H Lymph % (Auto) 8.7 L [place] % (Auto) 8.3 H Lymph # (Auto) 1.0 L [place] # (Auto) 1.0 H Seg Neutrophils % 82.6 H Seg Neutrophils # 9.7 H APTT D-Dimer Heparin Anti-Xa Level ABG pH POC ABG pCO2 POC ABG pO2 ABG pO2 90.2 H ABG HCO3 ABG Base Excess ABG Hemoglobin ABG Oxyhemoglobin ABG Sodium ABG Potassium ABG Chloride ABG Glucose Oxyhemoglobin Carboxyhemoglobin Sodium Potassium Chloride Carbon Dioxide BUN Creatinine Glucose POC Glucose 372 H Hemoglobin A1c Lactic Acid Calcium Ferritin Total Bilirubin AST ALT Lactate Dehydrogenase C-Reactive Protein NT-Pro-B Natriuret Pep Total Protein Albumin Triglycerides Arterial Blood Glucose Arterial Blood Ionized Calcium Urine WBC (Auto) U Epithel Cells (Auto) Urine Creatinine Random Vancomycin Coronavirus (PCR) SARS-CoV-2 IgG Ab 03/25/20 03/25/20 03/25/20 05:15 06:13 11:41 WBC RBC Hgb Hct MCH MCHC RDW Lymph % (Auto) [place] % (Auto) Lymph # (Auto) [place] # (Auto) Seg Neutrophils % Seg Neutrophils # APTT D-Dimer Heparin Anti-Xa Level ABG pH POC ABG pCO2 53.5 H POC ABG pO2 63.6 L ABG pO2 ABG HCO3 ABG Base Excess ABG Hemoglobin 10.3 L ABG Oxyhemoglobin 87.8 L ABG Sodium 166.5 H ABG Potassium 4.8 H ABG Chloride 129.0 H ABG Glucose 380 H Oxyhemoglobin Carboxyhemoglobin Sodium 168 H* D Potassium Chloride 127.9 H Carbon Dioxide BUN 59 H Creatinine 1.4 H Glucose 389 H POC Glucose 331 H Hemoglobin A1c Lactic Acid Calcium Ferritin Total Bilirubin AST ALT Lactate Dehydrogenase C-Reactive Protein NT-Pro-B Natriuret Pep Total Protein Albumin Triglycerides Arterial Blood Glucose 380 H Arterial Blood Ionized Calcium 5.5 H Urine WBC (Auto) U Epithel Cells (Auto) Urine Creatinine Random Vancomycin Coronavirus (PCR) SARS-CoV-2 IgG Ab 03/25/20 12:03 WBC RBC Hgb Hct MCH MCHC RDW Lymph % (Auto) [place] % (Auto) Lymph # (Auto) [place] # (Auto) Seg Neutrophils % Seg Neutrophils # APTT D-Dimer Heparin Anti-Xa Level ABG pH POC ABG pCO2 POC ABG pO2 ABG pO2 ABG HCO3 ABG Base Excess ABG Hemoglobin ABG Oxyhemoglobin ABG Sodium ABG Potassium ABG Chloride ABG Glucose Oxyhemoglobin Carboxyhemoglobin Sodium Potassium Chloride Carbon Dioxide BUN Creatinine Glucose POC Glucose 306 H Hemoglobin A1c Lactic Acid Calcium Ferritin Total Bilirubin AST ALT Lactate Dehydrogenase C-Reactive Protein NT-Pro-B Natriuret Pep Total Protein Albumin Triglycerides Arterial Blood Glucose Arterial Blood Ionized Calcium Urine WBC (Auto) U Epithel Cells (Auto) Urine Creatinine Random Vancomycin Coronavirus (PCR) SARS-CoV-2 IgG Ab Allied health notes reviewed: nursing
--- NOTE | 2020-03-25 18:00 | Event Note ---
Date: 03/25/20 Chart reviewed. Noted cerebral blood flow study results Patient has no sign of significant cerebral blood flow \Mother at the bedside- explained the findings. Patient is now DNR. She does want to get in touch with the [employer] [facility]- they were interested in Ms [place]'s brain in the event of .
[2020-03-25] MEDS: INSULIN GLARGINE 100 UNITS/ML SUB-Q SCH (21:26)
[2020-03-26] MEDS: INSULIN LISPRO 100 UNIT/ML VIAL 3 mL SUB-Q SCH ×2 (00:44→06:38)
[2020-03-26] MEDS: dexAMETHasone 4 MG/ML VIAL IV SCH (06:38)
--- NOTE | 2020-03-26 08:29 | Progress Note ---
Assessment and Plan Cultures: Blood culture 03/09/2020 no growth Urine culture 03/09/2020 Tracheal aspirate culture 03/13/2020 MRSA Blood culture 03/23/2020 no growth today Trachioal aspirate 03/23/2020 Staph A/P: 29-year-old female past medical history morbid obesity, obesity hypoventilation syndrome, diabetes admitted with shortness of breath #Status post cardiac arrest - x2 on 03/13 and 03/19 #Shock: Multifactorial, likely septic source ? Pneumonia ? UTI. Remains with fever. ?central fever ?persistent pneumonia. #Critical COVID-19 pneumonia +/- MRSA pneumonia: COVID-19 diagnosed over 2 weeks before admission, as such not a candidate for remdesivir. Markers mildly elevated. Procalcitonin slightly elevated at 0.3. Tract aspirate grew MRSA. Intubated 03/13/2020 after cardiac arrest, self extubated 03/19/2020, then reintubated. Completed vancomycin to complete 10 days on 03/21/2020. #Acute hypoxemic respiratory failure: Likely secondary to COVID-19 infection versus CHF versus bacterial pneumonia. Remains intubated FiO2 60%, PEEP 14. #Diabetes: tight glycemic control for best outcomes. #Morbid obesity: Associated with worse outcomes, recommend diet modifications #CHF: acute volume overload #PE: non-occlusive. #Acute encephalopathy: Patient unresponsive fixed pupils, repeat CT head with marked hypoattenuation in the cerebral hemispheres bilaterally, ascending and descending tentorial herniation. Neurology on board. 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 Made DNR #MICHELLE: Improving #CAUTI Recs: -Stop cefepime - D5 of 5 -Overall very poor prognosis, patient unresponsive with brain herniation, made DNR will sign off Miesha Ramirez MD [facility] ([facility]) Office [phone] Subjective Date of service: 03/26/20 Principal diagnosis: Cardiac arrest; Ac. hypoxemic resp failure; COVID 19 infxn; Pulm HTN; OHS Interval history: Remains intubated, low grade fever Objective - Exam Narrative Exam: Physical Exam: reviewed ED and hospitalist notes, limited due to conservation of PPE and decrease risk of transmission. General appearance: limited due to conservation of PPE Eyes: limited due to conservation of PPE HENT: Atraumatic; limited due to conservation of PPE Lungs: limited due to conservation of PPE CV: limited due to conservation of PPE Abdomen: limited due to conservation of PPE Extremities: limited due to conservation of PPE Skin: limited due to conservation of PPE Psych: limited due to conservation of PPE Neuro: limited due to conservation of PPE - Constitutional Vitals: Vital Signs Temp Pulse Resp BP Pulse Ox 99.1 F 86 25 H 130/77 96 03/26/20 03:54 03/26/20 07:45 03/26/20 07:45 03/26/20 07:45 03/26/20 07:45 Temperature -Last 24 Hours Temperature 99.1 F Temperature 99 F Temperature 99.5 F Temperature 100.3 F Temperature 99.0 F - Labs CBC & Chem 7: 03/25/20 05:15 03/25/20 05:15 Labs: Abnormal lab results 03/25/20 03/25/20 03/25/20 Range/Units 11:41 12:03 18:30 Heparin Anti-Xa Level (0.3-0.7) U.I./ml POC ABG pCO2 53.5 H (32.0-48.0) mmHg POC ABG pO2 63.6 L (83-108) mmHg ABG Hemoglobin 10.3 L (12.0-17.5) ABG Oxyhemoglobin 87.8 L (94-98) ABG Sodium 166.5 H (136.0-145.0) mmol/L ABG Potassium 4.8 H (3.40-4.50) mmol/L ABG Chloride 129.0 H (98-107) mmol/L ABG Glucose 380 H (65-95) mg/dL POC Glucose 306 H 208 H (70-105) mg/dL Arterial Blood Glucose 380 H (65-95) mg/dL Arterial Blood Ionized Calcium 5.5 H (4.6-5.3) mg/dL 03/25/20 03/26/20 03/26/20 Range/Units 23:32 00:20 04:00 Heparin Anti-Xa Level 0.86 H (0.3-0.7) U.I./ml POC ABG pCO2 (32.0-48.0) mmHg POC ABG pO2 78.6 L (83-108) mmHg ABG Hemoglobin 10 L (12.0-17.5) ABG Oxyhemoglobin (94-98) ABG Sodium 160.0 H (136.0-145.0) mmol/L ABG Potassium 5.1 H (3.40-4.50) mmol/L ABG Chloride 124.0 H (98-107) mmol/L ABG Glucose 124 H (65-95) mg/dL POC Glucose 186 H (70-105) mg/dL Arterial Blood Glucose 124 H (65-95) mg/dL Arterial Blood Ionized Calcium (4.6-5.3) mg/dL 03/26/20 Range/Units 05:36 Heparin Anti-Xa Level (0.3-0.7) U.I./ml POC ABG pCO2 (32.0-48.0) mmHg POC ABG pO2 (83-108) mmHg ABG Hemoglobin (12.0-17.5) ABG Oxyhemoglobin (94-98) ABG Sodium (136.0-145.0) mmol/L ABG Potassium (3.40-4.50) mmol/L ABG Chloride (98-107) mmol/L ABG Glucose (65-95) mg/dL POC Glucose 160 H (70-105) mg/dL Arterial Blood Glucose (65-95) mg/dL Arterial Blood Ionized Calcium (4.6-5.3) mg/dL
[2020-03-26] MEDS: GLYCOPYRROLATE 2 MG TAB PO SCH (09:05)
--- NOTE | 2020-03-26 10:33 | Progress Note ---
Assessment and Plan --Severe anoxic brain injury/Brain likely developed following 2nd cardiac arrest CT head 03/22 with brain herniation, neurology following repeat CT 03/23 showed progression of diffuse brain edema Cerebral blood flow study 03/24 showed no sig blood flow to the brain --Acute respiratory failure due to COVID-19 and staph MRSA PNA patient now intubated since 03/13 following a cardiac arrest self extubated on 03/19 then reintubated Critical care following, continue scheduled breathing treatment, IV steroid --Status post cardiac arrest x2 on 03/13 and 03/19 Patient currently intubated, 2D echo showed preserved EF with right ventricular pressure 68 --B/l PE, initiated on heparin drip --Novel Coronavirus infection Coronavirus protocol: Infectious disease service consulted, contact precautions, isolation precaution, steroid therapy, follow inflammatory markers Diagnosed over 2 weeks ago, as such not a candidate for remdesivir. Given that her ferritin is normal, less likely to be in cytokine storm. -Patient also positive for COVID-19 antibody -no scope for convalescent plasma therapy -- Pneumonia with MRSA and COVID Pneumonia protocol: Supplemental oxygen, IV antibiotic therapy, pulse oximetry, blood culture. -cefepime 2 g every 8 hours given elevated white count, lactic acid and procalcitonin -Continue vancomycin as sputum culture growing MRSA for 7 days -Patient was diagnosed with COVID-19 2 weeks ago- not a candidate for remdesivir --Sepsis with shock, due to COVID-19 and MRSA pneumonia and ?UTI Likely present on admission, continue antibiotics per ID, follow inflammatory markers -- Hypertension Monitor blood pressure every shift, continue medical management -- Diabetes type 2 Tube feeding diet, sliding scale insulin therapy, Accu-Chek, hypoglycemia protocol -- Obesity hypoventilation syndrome BMI 78.7, monitor weight pulse oximetry, nebulizer therapy, supplemental oxygen, patient now intubated outpatient pulmonary follow-up for sleep study when clinically stable, need recommendation on balanced diet, increase physical activity at discharge -- Pulmonary hypertension cont Supportive care, --hyperkalemia, follow BMP, give iv sodium bicarbonate as needed, monitor for bradycardia --hypernatremia, monitor, gentle hydration if Na level >155 considering severe cerebral edema -- DVT prophylaxis SCD to bilateral lower extremities while in bed, prophylactic anticoagulation Brief history: 29-year-old female past medical history morbid obesity, obesity hypoventilation syndrome, diabetes admitted with shortness of breath. Patient is positive for COVID-19 diagnosed 2 weeks ago before this admission, patient required intubated following a cardiac arrest on 03/13/20. ID following and critical care following. Sputum culture is positive for staph aureus, getting abx. on 03/19 she self extubated herself and went into another cardiac arrest - immediately reintubated and ACLS started with return of pulse. 03/16: resumed care. cont iv abx, follow pending sputum Cx. wean off vent as tolerated 03/17: Sputum culture positive for MRSA, stop cefepime continue on vancomycin for 7 days per ID recommendation. Wean off vent as tolerated, continue tube feeding 03/19: Patient self extubated herself and then developed cardiac arrest. ACLS initiated and ROSC obtained. Discussed with RN at the bedside. CTA chest showed b/l PE, heparin drip initiated. Called patient's mother and updated 03/20 at present patient remains intubated was reintubated. CT scan chest showed small PE remains on heparin drip. 03/21 lew intubated no new changes over p.m. Vancomycin for 10 days per ID. Unable to wean at this time. 03/22: patient with dilated pupil w/o cough and gag response. CT head showed tentorium herniation. Neurology consulted, discusaed with CC and he will update the family. 03/23: ordered for repeat CT head today. EEG done today will f/u result. Called mother and updated her with patient's clinical status 03/24: had a discussion with patient's mother with neurology and family agreed for hospice as patient is most likely brain /severe anoxic brain injury with herniation. 03/25: called again patient's mother today with cerebral blood flow study. p atient clinically appears brain . changed code status to DNR. family wants home hospice. discussed with CC attending, RN and case mx. Subjective Date of service: 03/25/20 Principal diagnosis: Cardiac arrest; Ac. hypoxemic resp failure; COVID 19 infxn; Pulm HTN; OHS Interval history: Patient seen and examined Patient currently intubated with mechanical ventilation Patient also off sedation and off restrain Discussed with RN at the bedside Called mother today to give update Objective - Exam Narrative Exam: GENERAL: well-developed morbidly obese -[place] female lying on bed intubated and unresponsive. HEENT: Normocephalic. Atraumatic. No conjunctival congestion or icterus. Patient has non reactive dilated fixed stable. NECK: Supple. Trachea midline. ET tube in place CHEST/LUNGS: Diminished breath sound auscultated bilaterally, mechanically ventilated HEART/CARDIOVASCULAR: S1 and S2 positive. ABDOMEN: Abdomen is soft, nontender. SKIN: There is no rash. Warm and dry. NEURO: Unresponsive MUSCULOSKELETAL: No joint effusion or tenderness. EXTRIMITY: No edema, no cyanosis or clubbing. PSYCH: Unresponsive - Constitutional Vitals: Vital Signs - 12hr 03/25/20 03/25/20 03/25/20 22:30 22:46 23:00 Temperature Pulse Rate 109 H 107 H 107 H Respiratory 25 H 25 H 25 H Rate Blood Pressure 124/61 119/59 125/57 O2 Sat by Pulse 85 87 88 Oximetry 03/25/20 03/25/20 03/25/20 23:16 23:30 23:46 Temperature Pulse Rate 106 H 106 H 106 H Respiratory 25 H 25 H 25 H Rate Blood Pressure 127/61 123/65 122/61 O2 Sat by Pulse 89 90 90 Oximetry 03/25/20 03/26/20 03/26/20 23:48 00:00 00:07 Temperature 99 F Pulse Rate 105 H 104 H Respiratory 25 H Rate Blood Pressure 126/58 126/58 O2 Sat by Pulse 90 90 Oximetry 03/26/20 03/26/20 03/26/20 00:16 00:30 00:46 Temperature Pulse Rate 104 H 105 H 104 H Respiratory 25 H 25 H 25 H Rate Blood Pressure 120/65 136/76 131/75 O2 Sat by Pulse 91 91 92 Oximetry 03/26/20 03/26/20 03/26/20 01:00 01:15 01:30 Temperature Pulse Rate 104 H 101 H 101 H Respiratory 25 H 25 H 25 H Rate Blood Pressure 135/76 134/75 135/74 O2 Sat by Pulse 92 92 93 Oximetry 03/26/20 03/26/20 03/26/20 01:45 02:00 02:15 Temperature Pulse Rate 99 H 100 H 99 H Respiratory 25 H 25 H 25 H Rate Blood Pressure 138/76 138/75 138/75 O2 Sat by Pulse 92 92 92 Oximetry 12/11/20 12/11/20 12/11/20 02:30 02:45 03:00 Temperature Pulse Rate 99 H 99 H 98 H Respiratory 25 H 25 H 25 H Rate Blood Pressure 139/77 137/78 138/78 O2 Sat by Pulse 93 93 93 Oximetry 03/26/20 03/26/20 03/26/20 03:15 03:30 03:45 Temperature Pulse Rate 98 H 99 H 100 H Respiratory 25 H 25 H 25 H Rate Blood Pressure 142/76 141/79 137/81 O2 Sat by Pulse 93 93 93 Oximetry 03/26/20 03/26/20 03/26/20 03:54 03:59 04:00 Temperature 99.1 F Pulse Rate 100 H 100 H Respiratory 25 H Rate Blood Pressure 133/78 147/78 O2 Sat by Pulse 94 94 Oximetry 03/26/20 03/26/20 03/26/20 04:15 04:30 04:45 Temperature Pulse Rate 100 H 100 H 99 H Respiratory 25 H 25 H 25 H Rate Blood Pressure 143/80 139/78 136/80 O2 Sat by Pulse 95 95 95 Oximetry 03/26/20 03/26/20 03/26/20 05:01 05:15 05:30 Temperature Pulse Rate 98 H 98 H 97 H Respiratory 21 25 H 18 Rate Blood Pressure 138/76 139/77 138/78 O2 Sat by Pulse 95 95 96 Oximetry 03/26/20 03/26/20 03/26/20 05:45 06:00 06:15 Temperature Pulse Rate 97 H 96 H 95 H Respiratory 25 H 22 22 Rate Blood Pressure 136/76 138/80 138/79 O2 Sat by Pulse 96 96 96 Oximetry 03/26/20 03/26/20 03/26/20 06:30 06:45 07:00 Temperature Pulse Rate 94 H 92 H 91 H Respiratory 22 25 H 25 H Rate Blood Pressure 141/80 134/72 130/73 O2 Sat by Pulse 96 95 95 Oximetry 03/26/20 03/26/20 03/26/20 07:15 07:30 07:45 Temperature Pulse Rate 90 87 86 Respiratory 25 H 25 H 25 H Rate Blood Pressure 127/75 131/75 130/77 O2 Sat by Pulse 96 96 96 Oximetry 03/26/20 03/26/20 03/26/20 08:00 08:15 08:30 Temperature Pulse Rate 87 86 85 Respiratory 26 H 25 H 25 H Rate Blood Pressure 135/81 133/78 136/85 O2 Sat by Pulse 95 95 95 Oximetry 03/26/20 03/26/20 03/26/20 08:45 09:00 09:27 Temperature Pulse Rate 85 84 87 Respiratory 25 H 25 H Rate Blood Pressure 138/84 139/84 144/88 O2 Sat by Pulse 95 95 97 Oximetry - Labs CBC & Chem 7: 03/25/20 05:15 03/25/20 05:15 Labs: Abnormal lab results 03/25/20 03/25/20 03/25/20 Range/Units 11:41 12:03 18:30 Heparin Anti-Xa Level (0.3-0.7) U.I./ml POC ABG pCO2 53.5 H (32.0-48.0) mmHg POC ABG pO2 63.6 L (83-108) mmHg ABG Hemoglobin 10.3 L (12.0-17.5) ABG Oxyhemoglobin 87.8 L (94-98) ABG Sodium 166.5 H (136.0-145.0) mmol/L ABG Potassium 4.8 H (3.40-4.50) mmol/L ABG Chloride 129.0 H (98-107) mmol/L ABG Glucose 380 H (65-95) mg/dL POC Glucose 306 H 208 H (70-105) mg/dL Arterial Blood Glucose 380 H (65-95) mg/dL Arterial Blood Ionized Calcium 5.5 H (4.6-5.3) mg/dL 03/25/20 03/26/20 03/26/20 Range/Units 23:32 00:20 04:00 Heparin Anti-Xa Level 0.86 H (0.3-0.7) U.I./ml POC ABG pCO2 (32.0-48.0) mmHg POC ABG pO2 78.6 L (83-108) mmHg ABG Hemoglobin 10 L (12.0-17.5) ABG Oxyhemoglobin (94-98) ABG Sodium 160.0 H (136.0-145.0) mmol/L ABG Potassium 5.1 H (3.40-4.50) mmol/L ABG Chloride 124.0 H (98-107) mmol/L ABG Glucose 124 H (65-95) mg/dL POC Glucose 186 H (70-105) mg/dL Arterial Blood Glucose 124 H (65-95) mg/dL Arterial Blood Ionized Calcium (4.6-5.3) mg/dL 03/26/20 Range/Units 05:36 Heparin Anti-Xa Level (0.3-0.7) U.I./ml POC ABG pCO2 (32.0-48.0) mmHg POC ABG pO2 (83-108) mmHg ABG Hemoglobin (12.0-17.5) ABG Oxyhemoglobin (94-98) ABG Sodium (136.0-145.0) mmol/L ABG Potassium (3.40-4.50) mmol/L ABG Chloride (98-107) mmol/L ABG Glucose (65-95) mg/dL POC Glucose 160 H (70-105) mg/dL Arterial Blood Glucose (65-95) mg/dL Arterial Blood Ionized Calcium (4.6-5.3) mg/dL HEART Score - HEART Score Troponin: Troponin T 0.017 ng/mL (0.00-0.029) 03/14/20 09:17
[2020-03-26] MEDS: POLYETHYLENE GLYCOL 3350 17 GM POWDER PO SCH (10:37)
[2020-03-26] MEDS: SENNOSIDES/DOCUSATE SODIUM 8.6/50 MG TAB PO SCH (10:37)
[2020-03-26] MEDS: LANSOPRAZOLE 30 MG SOLUTAB FEEDTUBE SCH (10:37)
[2020-03-26] MEDS: DEXTROSE 5% IN WATER 1,000 ML IV SCH (10:37)
[2020-03-26] MEDS: HEPARIN/ 0.45% NACL DRIP 25,000 UNIT/500 ML BAG IV SCH (11:33)
--- NOTE | 2020-03-26 13:43 | Event Note ---
Date: 03/26/20 Discussed with family at bedside They wants withdraw care and donating Ms Bedoya's brain to [facility] following her signed the paper for withdraw care, ordered for extubation
--- NOTE | 2020-03-26 15:51 | Event Note ---
Date: 03/26/20 Patient on 14:30
--- NOTE | 2020-03-26 15:54 | Death Summary ---
Summary - Providers Date of service: 03/26/20 Consults: 03/09/20 21:44 Consult to Physician [CONS] Routine Comment: Consulting Provider: DUANE AMAYA Physician Instructions: Reason For Exam: Covid positive patient 03/13/20 06:29 Consult to Physician [CONS] Routine Comment: Consulting Provider: GRIS CHIN Physician Instructions: Reason For Exam: Acute respiratory failure due to COVID 19 03/13/20 06:41 Consult to Dietitian/Nutrition [CONS] Routine Physician Instructions: Reason For Exam: Reason for Consult: Evaluate nutritional intake 03/13/20 06:54 Consult to Dietitian/Nutrition [CONS] Routine Physician Instructions: Reason For Exam: Reason for Consult: Evaluate nutritional intake 03/14/20 08:09 Consult to Dietitian/Nutrition [CONS] Routine Physician Instructions: Reason For Exam: Reason for Consult: Write/Manage Tube Feeding 03/16/20 14:14 PICC Line Insertion [Consult to PICC Line RN] [CONS] Routine Reason For Exam: poor IV access; critically ill Type Line:: PICC 03/21/20 15:39 Consult to Physician [CONS] Routine Comment: called office/ darcy Consulting Provider: ROSE CH Physician Instructions: Reason For Exam: MICHELLE 03/22/20 10:59 Consult to Physician [CONS] Routine Comment: Consulting Provider: ANDREW DONG Physician Instructions: Reason For Exam: AMS/brain herniation 03/24/20 14:52 Consult to Case Management [CONS] Routine Services Needed at Discharge: Other Notified:: yes Was contact made?: Yes If yes, spoke with:: daxa Additional Physician Instructions: hospice Attending: RONY CHAPARRO - summary Date of admission: 03/10/20 08:17 Date of : 03/26/20 Significant findings: Cause of : --Severe anoxic brain injury/Brain likely developed following 2nd cardiac arrest CT head 03/22 with brain herniation, neurology following repeat CT 03/23 showed progression of diffuse brain edema Cerebral blood flow study 03/24 showed no sig blood flow to the brain --Acute respiratory failure due to COVID-19 and staph MRSA PNA patient now intubated since 03/13 following a cardiac arrest self extubated on 03/19 then reintubated --Status post cardiac arrest x2 on 03/13 and 03/19 --B/l PE, initiated on heparin drip --Sepsis with shock, due to COVID-19 and MRSA pneumonia and ?UTI --Novel Coronavirus infection -Diagnosed over 2 weeks ago, as such not a candidate for remdesivir. Given that her ferritin is normal, less likely to be in cytokine storm. -Patient also positive for COVID-19 antibody -no scope for convalescent plasma therapy - repeat COVID test on 03/25/20 was negative -- Pneumonia with MRSA and COVID -- Hypertension, h/o -- Diabetes type 2 -- Obesity hypoventilation syndrome, BMI 78.7 -- Pulmonary hypertension --hyperkalemia, --hypernatremia
[2020-03-26 16:28] VITALS: BP 138/86
[2020-03-26 23:30] LABS: Myeloperoxidase Antibody <1.0 AI (<1.0)
[2020-03-27 07:05] LABS: Albumin 2.1 g/dL (3.8-4.8); Gamma Globulin 0.7 g/dL (0.8-1.7)
[2020-03-28 14:09] LABS: ANA Screen, IFA Negative (Negative)
== END 2020-03-26 16:00 | DRG 870 ==
LOC: ED 07:21 → 3A 08:17 → OBSVTOIN 03-10 08:17 → IMCU 03-13 06:30 → CC1 03-14 11:19
PROVIDERS: ADMIT Internal Medicine; ATTEND Internal Medicine
PROC: 5A1955Z Respiratory Ventilation, Greater than 96 Consecutive Hours (ICD-10-PCS; principal; 2020-03-19)
PROC: 0BH17EZ Insertion of Endotracheal Airway into Trachea, Via Natural or Artificial Opening (ICD-10-PCS; 2020-03-19)
PROC: 4A033R1 Measurement of Arterial Saturation, Peripheral, Percutaneous Approach (ICD-10-PCS; 2020-03-19)
DX: A41.9 Sepsis, unspecified organism (principal); U07.1 COVID-19; J12.89 Other viral pneumonia; J96.01 Acute respiratory failure with hypoxia; Z68.44 Body mass index [BMI] 60.0-69.9, adult; E87.2 Acidosis; E66.2 Morbid (severe) obesity with alveolar hypoventilation; G93.1 Anoxic brain damage, not elsewhere classified; I46.9 Cardiac arrest, cause unspecified; Z51.5 Encounter for palliative care; Z66 Do not resuscitate; I10 Essential (primary) hypertension; E11.9 Type 2 diabetes mellitus without complications; J45.909 Unspecified asthma, uncomplicated; Z88.8 Allergy status to other drugs, medicaments and biological substances; E78.5 Hyperlipidemia, unspecified; Z82.49 Family history of ischemic heart disease and other diseases of the circulatory system; Z79.899 Other long term (current) drug therapy; Z79.84 Long term (current) use of oral hypoglycemic drugs; Z79.891 Long term (current) use of opiate analgesic; Z79.01 Long term (current) use of anticoagulants; D72.829 Elevated white blood cell count, unspecified; I27.20 Pulmonary hypertension, unspecified
CPT/HCPCS: 36415; 36600; 70450; 71045; 71275; 74018; 78601; 80048; 80053; 80202; 81001; 81025; 82140; 82570; 82728; 82803; 82805; 82962; 83036; 83615; 83880; 84145; 84165; 84300; 84478; 84484; 84703; 85014; 85018; 85025; 85027; 85049; 85379; 85520; 85610; 85730; 86021; 86038; 86140; 86160; 86850; 86900; 86901; 87040; 87070; 87076; 87086; 87186; 87205; 93005; 93306; 93970; 94002; 94003; 94760; 95819; 96365; 96375; G0378; A9512; J0171; J0330; J0692; J1100; J1200; J1630; J1644; J1650; J1815; J1940; J1956; J2250; J2704; J3010; J3370; J3486; J7030; J7040; J7070; J8540; Q9967; U0003